=== PATIENT | female | born 1940 ===

== ENCOUNTER 2016-07-17 09:10 | Inpatient (IN) | payer MEDICARE, MEDICAID ==
[2016-07-17 09:15] VITALS: BMI 25.9
--- NOTE | 2016-07-17 09:48 | ED PDOC ---
HPI: General Adult Time Seen by Provider: 07/17/16 09:40 Chief Complaint (Nursing): Abdominal Pain Chief Complaint (Provider): abdominal pain History Per: Patient History/Exam Limitations: no limitations Additional Complaint(s): 76yo female complaining of abdominal pain, vomit, diarrhea since last night. No fever. She also has a cough with white sputum. PMD: Jang Past Medical History Reviewed: Historical Data, Nursing Documentation, Vital Signs Vital Signs: Last Vital Signs Temp 97.6 F 07/17/16 09:21 Pulse 78 07/17/16 09:21 Resp 20 07/17/16 09:21 BP 125/91 H 07/17/16 09:21 Pulse Ox 98 07/17/16 10:05 - Medical History PMH: Anemia, Anxiety, Arthritis, Asthma, Atrial Fibrillation, Back Problems ( had recent injury/fall and was hospitalized for back pain(no findings)), Bronchitis, CAD, Cardia Arrhythmia, CHF, COPD, Depression, Diabetes (type II), Gastritis, Gall Bladder Disease, Hepatitis (B), HTN, Hypercholesterolemia, Hyperlipidemia, Osteoporosis, Peripheral Edema, Pneumonia Denies: HIV, End Stage Renal Disease, Chronic Kidney Disease - Surgical History Surgical History: Cholecystectomy, Coronary Stent - Family History Family History: States: Hypertension - Social History Drugs: Denies - Immunization History Hx Tetanus Toxoid Vaccination: No Hx Influenza Vaccination: Yes Hx Pneumococcal Vaccination: Yes - Home Medications Home Medications: Ambulatory Orders Medication Instructions Recorded GlipiZIDE [Glucotrol] 10 mg PO BID 04/26/16 Isosorbide Mononitrate [Imdur] 30 mg PO DAILY 04/26/16 Lorazepam [Ativan] 0.5 mg PO HS 04/26/16 Metoprolol Tartrate [Lopressor] 100 mg PO Q12H 04/26/16 Pantoprazole Sodium [Protonix] 40 mg PO BID 04/26/16 Pravastatin Sodium [Pravachol] 40 mg PO HS 04/26/16 Sucralfate [Carafate Tab] 1 gm PO BID 04/26/16 Acetaminophen [Tylenol 325mg tab] 650 mg PO Q4 PRN #0 tab 05/01/16 Albuterol/Ipratropium [Duoneb 3 3 ml INH Q6 PRN #0 neb 05/01/16 mg/0.5 mg (3 ml) UD] Lactobacillus Acidophilus [Bacid 1 cap PO BID cap 05/01/16 Acidophilus] Promethazine [Phenergan Syrup] 6.25 mg PO Q6 PRN #0 cup 05/01/16 amLODIPine [Norvasc] 10 mg PO DAILY #30 tab 05/01/16 cloNIDine [Catapres] 0.1 mg PO Q8H tab 05/01/16 oxyCODONE/Acetaminophen [Percocet 1 ea PO Q6 #30 tab 05/01/16 5/325 mg Tab] Acetaminophen [Tylenol 325mg tab] 650 mg PO Q4 PRN #0 tab 05/31/16 Albuterol/Ipratropium [Duoneb 3 3 ml INH Q6 PRN #0 neb 05/31/16 mg/0.5 mg (3 ml) UD] Enoxaparin [Lovenox] 30 mg SC DAILY syr 05/31/16 Furosemide [Lasix] 40 mg PO DAILY tab 05/31/16 GlipiZIDE [Glucotrol] 10 mg PO BID tab 05/31/16 Insulin Human Regular [HumuLIN R] 0 units SC ACHS ml 05/31/16 Metoprolol Tartrate [Lopressor] 100 mg PO Q12 tab 05/31/16 - Allergies Allergies/Adverse Reactions: Allergies Allergy/AdvReac Type Severity Reaction Status Date / Time alprazolam [From Xanax] Allergy SWELLING Verified 07/17/16 09:43 hydromorphone HCl Allergy RASH Verified 07/17/16 09:43 [From Dilaudid] zolpidem tartrate Allergy RASH Verified 07/17/16 09:43 [From Ambien] Review of Systems ROS Statement: Except As Marked, All Systems Reviewed And Found Negative Constitutional: Negative for: Fever Respiratory: Positive for: Cough, Sputum Gastrointestinal: Positive for: Nausea, Vomiting, Abdominal Pain, Diarrhea Physical Exam - Reviewed Nursing Documentation Reviewed: Yes Vital Signs Reviewed: Yes - Physical Exam Appears: Positive for: Well, Non-toxic, No Acute Distress Head Exam: Positive for: ATRAUMATIC, NORMAL INSPECTION, NORMOCEPHALIC Skin: Positive for: Warm, Dry Eye Exam: Positive for: EOMI, PERRL Cardiovascular/Chest: Positive for: Regular Rate, Rhythm Respiratory: Positive for: Decreased Breath Sounds, Rhonchi. Negative for: Respiratory Distress Gastrointestinal/Abdominal: Positive for: Soft. Negative for: Tenderness Extremity: Positive for: Normal ROM Neurologic/Psych: Positive for: Alert, Oriented - Laboratory Results Result Diagrams: 07/17/16 10:37 07/17/16 10:37 - ECG O2 Sat by Pulse Oximetry: 98 (RA) Pulse Ox Interpretation: Normal Medical Decision Making Medical Decision Makin: EKG, CXR, blood culture, VBG shock panel, labs, duoneb, solumedrol ordered. Disposition - Clinical Impression Clinical Impression: Pneumonia, COPD exacerbation - Patient ED Disposition Is Patient to be Admitted: Yes - Disposition Disposition Time: 14:41 Condition: FAIR - Pt Status Changed To: Hospital Disposition Of: Observation - POA Present On Arrival: None Additional Comments - Additional Comments Additional Comments: Scribe Attestation: Documented by Shiv Vilchis acting as a scribe for Felipe Clemons MD. Provider Scribe Attestation: All medical record entries made by the Scribe were at my direction and personally dictated by me. I have reviewed the chart and agree that the record accurately reflects my personal performance of the history, physical exam, medical decision making, and the department course for this patient. I have also personally directed, reviewed, and agree with the discharge instructions and disposition.
[2016-07-17] MEDS ORDERED: Albuterol-Ipratrop 3 mg / 0.5 (3 ml) UD IH STA (09:51)
[2016-07-17] MEDS ORDERED: Albuterol-Ipratrop 3 mg / 0.5 (3 ml) UD ONE (09:54)
[2016-07-17 10:55] LABS: ALB/GLOB RATIO 1.1 (1.0-2.1); BILIRUBIN,TOTAL 0.7 mg/dl (0.2-1.3); CALCIUM 8.9 mg/dL (8.4-10.2); POTASSIUM 4.6 MMOL/L (3.6-5.0); TOTAL PROTEIN 7.5 G/DL (6.3-8.2)
[2016-07-17 11:06] LABS: BASO # 0.1 K/uL (0.0-0.2); BASO % 1.2 % (0.0-2.0); EOS # 0.1 K/uL (0.0-0.7); EOS % 1.6 % (0.0-4.0); LYMPH % 12.8 % (20.0-40.0); MONO # 0.6 K/uL (0.0-0.8); MONO % 8.5 % (0.0-10.0); NEUT # 5.7 K/uL (1.8-7.0); NEUT % 75.9 % (50.0-75.0); RED CELL DISTRIBUTION WIDTH 16.6 % (11.5-14.5); WHITE BLOOD COUNT 7.5 K/uL (4.8-10.8)
[2016-07-17 11:07] LABS: MEAN CELL VOLUME 90.3 fl (81.0-99.0)
--- NOTE | 2016-07-17 14:12 | RAD ---
HISTORY: Cough. COMPARISON: 05/29/2016 TECHNIQUE: Chest PA and lateral FINDINGS: LUNGS: Perihilar, right lower lobe infiltrate a new to prior studies. PLEURA: No significant pleural effusion identified. No pneumothorax apparent. CARDIOVASCULAR: Cardiomegaly. No evidence of acute, significant cardiovascular disease. OSSEOUS STRUCTURES: No significant abnormalities. VISUALIZED UPPER ABDOMEN: Normal. OTHER FINDINGS: None. IMPRESSION: New right lower lobe infiltrate likely pneumonia. PLEASE NOTE, technical factors related to PACS- networking resulted in an unavoidable delay in the interpretation and generation of a final report of this study.
--- NOTE | 2016-07-17 16:09 | CARD ---
APPROVED REPORT EKG Measurement Heart [id number] <Conclusion> Sinus rhythm with occasional premature ventricular complexes Otherwise normal ECG
[2016-07-17] MEDS: Insulin Regular 100 units/ml SC SCH (23:23)
[2016-07-18] MEDS: Insulin Regular 100 units/ml SC SCH ×4 (06:18→23:00)
[2016-07-18] MEDS: Enoxaparin 40 mg Syringe SC SCH (09:00)
[2016-07-18] MEDS: Pantoprazole 40 mg EC Tab PO SCH ×2 (09:01→16:59)
[2016-07-18] MEDS: Pravastatin Sodium 40 MG TAB PO SCH (09:01)
--- NOTE | 2016-07-18 09:27 | CP.PCM.HP ---
<Yashira Hunter - Last Filed: 07/18/16 22:38> History of Present Illness - History of Present Illness History of Present Illness: 76F admitted last night and seen this morning at bedside with attending. This morning patient reports nausea/vomiting/diarrhea has resolved but continues with productive cough. Present on Admission - Present on Admission Any Indicators Present on Admission: Yes History of Uncontrolled Diabetes: Yes Review of Systems - Review of Systems Review of Systems: As per HPI Past Patient History - Past Medical History & Family History Past Medical History?: Yes - Past Social History Smoking Status: Never Smoked - CARDIAC Hx Cardiac Disorders: Yes - PULMONARY Hx Respiratory Disorders: Yes - NEUROLOGICAL Hx Neurological Disorder: No - HEENT Hx HEENT Problems: No - RENAL Hx Chronic Kidney Disease: No - ENDOCRINE/METABOLIC Hx Endocrine Disorders: Yes - HEMATOLOGICAL/ONCOLOGICAL Hx Anemia: Yes Hx Human Immunodeficiency Virus (HIV): No - INTEGUMENTARY Hx Dermatological Problems: No - MUSCULOSKELETAL/RHEUMATOLOGICAL Hx Musculoskeletal Disorders: Yes Hx Falls: Yes - GASTROINTESTINAL Hx Gall Bladder Disease: Yes Hx Gastritis: Yes - GENITOURINARY/GYNECOLOGICAL Hx Genitourinary Disorders: No - PSYCHIATRIC Hx Anxiety: Yes Hx Depression: Yes Hx Substance Use: No - SURGICAL HISTORY Hx Cholecystectomy: Yes Hx Coronary Stent: Yes - ANESTHESIA Hx Anesthesia: Yes Hx Anesthesia Reactions: No Hx Malignant Hyperthermia: No Meds Allergies/Adverse Reactions: Allergies Allergy/AdvReac Type Severity Reaction Status Date / Time alprazolam [From Xanax] Allergy SWELLING Verified 07/17/16 09:43 hydromorphone HCl Allergy RASH Verified 07/17/16 09:43 [From Dilaudid] zolpidem tartrate Allergy RASH Verified 07/17/16 09:43 [From Ambien] Physical Exam - Constitutional Appears: Well, Non-toxic - Head Exam Head Exam: ATRAUMATIC, NORMAL INSPECTION - Eye Exam Eye Exam: EOMI, Normal appearance - ENT Exam ENT Exam: Mucous Membranes Moist, Normal Exam - Respiratory Exam Respiratory Exam: Decreased Breath Sounds (R>L), Rhonchi, NORMAL BREATHING PATTERN. absent: Wheezes - Cardiovascular Exam Cardiovascular Exam: REGULAR RHYTHM. absent: JVD - GI/Abdominal Exam GI & Abdominal Exam: Normal Bowel Sounds, Soft. absent: Tenderness - Extremities Exam Extremities exam: Positive for: normal capillary refill, pedal pulses present - Neurological Exam Neurological exam: Alert - Skin Skin Exam: Normal Color, Warm Results - Vital Signs Recent Vital Signs: Last Vital Signs Temp 36.8 C 07/18/16 08:00 Pulse 78 07/18/16 09:00 Resp 20 07/18/16 08:00 BP 161/81 H 07/18/16 09:00 Pulse Ox 99 07/18/16 08:00 - Labs Result Diagrams: 07/17/16 10:37 07/17/16 10:37 Labs: Laboratory Results - last 24 hr 07/17/16 07/18/16 21:29 05:54 POC Glucose (mg/dL) 439 H* 186 H Assessment & Plan (1) Pneumonia Assessment and Plan: CXR showing RLL infiltrate, N/V/diarrhea likely associated with uncontrolled diabetes. However, patient with some clinical improvement. - Levofloxacin 500mg, IV, daily - Incentive Spirometry Status: Acute Priority: High (4) DVT prophylaxis Assessment and Plan: Lovenox 40mg, SC, Daily Status: Acute <Manpreet Austin - Last Filed: 07/21/16 15:55> Results - Vital Signs Recent Vital Signs: Last Vital Signs Temp 97.9 F 07/21/16 08:00 Pulse 71 07/21/16 09:00 Resp 18 07/21/16 08:00 BP 120/67 07/21/16 08:59 Pulse Ox 100 07/21/16 08:00 - Labs Result Diagrams: 07/19/16 06:00 07/19/16 06:00 Labs: Laboratory Results - last 24 hr 07/20/16 07/20/16 07/21/16 15:48 21:31 05:56 POC Glucose (mg/dL) 159 H 85 132 H 07/21/16 07/21/16 11:40 13:27 POC Glucose (mg/dL) 323 H 365 H Assessment & Plan - Assessment and Plan (Free Text) Assessment: Patient was personally seen and examined by me in rounds with residents. Available labs and diagnostic data reviewed. Case, Patient's condition and management plan discussed with residents in rounds. Agree with resident's documentation. Plan: As ordered. Manpreet Austin MD
[2016-07-18] MEDS ORDERED: Dextrose 50% SYRINGE Inj (50 ml) IV PRN (14:34)
[2016-07-18] MEDS ORDERED: Glucagon Recombinant 1 mg Inj IM PRN (14:34)
[2016-07-19] MEDS: Insulin Regular 100 units/ml SC SCH ×4 (06:50→23:10)
[2016-07-19 06:51] LABS: BASO # 0.1 K/uL (0.0-0.2); BASO % 1.3 % (0.0-2.0); EOS # 0.1 K/uL (0.0-0.7); EOS % 0.9 % (0.0-4.0); HEMATOCRIT 30.7 % (34.0-47.0); LYMPH # 1.2 K/uL (1.0-4.3); LYMPH % 16.7 % (20.0-40.0); MEAN CELL VOLUME 88.6 fl (81.0-99.0); MEAN CORPUSCULAR HEMOGLOBIN 28.3 pg (27.0-31.0); MEAN PLATELET VOLUME 7.9 fl (7.2-11.7); MONO # 0.7 K/uL (0.0-0.8); MONO % 10.1 % (0.0-10.0); NEUT # 5.2 K/uL (1.8-7.0); RED CELL DISTRIBUTION WIDTH 16.5 % (11.5-14.5); WHITE BLOOD COUNT 7.3 K/uL (4.8-10.8)
[2016-07-19 07:13] LABS: CALCIUM 8.6 mg/dL (8.4-10.2); POTASSIUM 4.2 MMOL/L (3.6-5.0)
--- NOTE | 2016-07-19 07:18 | PQF GENQUE ---
This form is a permanent part of the medical record 07/19/16 Dr. Austin, ER MD documented the following information with no mention of this diagnosis in your documentation. Please indicate in your next progress note and/or discharge summary your agreement with ER MD or provide clarification that this diagnosis is not a current condition. Diagnosis: COPD exacerbation Documented by: Dr. Clemons Location: ER Admitted with abdominal pain, vomiting, diarrhea and productive cough. CXR RLL infiltrate likely pneumonia. Treated with Levaquin, Solumedrol and Nebulizers. ER MD with diagnoses of pneumonia and COPD exacerbation. Clarification of your documentation is requested to better reflect the severity of illness and intensity of treatment of your patient. PHYSICIAN'S RESPONSE [ ] COPD history [ ] COPD with Acute Exacerbation [ ] Other explanation ( please specify) [ ] Unable to determine Based on your medical judgment of the clinical indicators outlined above please clarify the following: [] Practitioner response [] If unable to determine, please check the box, sign and date. Present On Admission (POA) Indicator: [] Present at the time of admission [] Not present at the time of admission [] Clinically Undetermined In responding to this query, please exercise your independent professional judgment. The fact that a question is asked does not imply that any particular answer is desired or expected. Thank you for your clarification on this documentation. If you have any questions please call:[phone] * Thank you, Zora Handy RN CD[facility]
--- NOTE | 2016-07-19 07:27 | PQF CHF ---
This form is a permanent part of the medical record 07/19/16 Dr. Austin, Please speicify the type and acuity of the history of CHF. Documentation by the ER MD of a history of CHF. Treated with Lasix. Clarification of your documentation is requested to better reflect the severity of illness and intensity of treatment of your patient. Indicators present [x] Diagnosis of a history of CHF written in by ER MD [] BNP > 200 [] Imaging Finding of Pulmonary Edema /Pleural Effusions [] Fluid/Volume Overload [] Pitting edema [] Ejection Fraction < 40% (Indicative of Systolic Heart Failure) [x] Ejection Fraction > 40% (Indicative of Diastolic Heart Failure) ECHO report 02/14/16 EF 60% [x] Dyspnea / Orthopenea / Paroxysmal Nocturnal Dyspnea [] Other: Location in the medical record that reflects the above clinical findings: [x] ER Treatment Provided: [x] Lasix Po PHYSICIAN'S RESPONSE Based on your medical judgment of the clinical indicators outlined above, are you treating this patient for a known or suspected: [] Acute CHF [] Systolic [] Diastolic [] Combined [] Chronic CHF [] Systolic [] Diastolic [] Combined [] Acute on Chronic CHF []Systolic [] Diastolic [] Combined [] CHF due hypertension [] Acute systolic []Chronic systolic [] Acute /chronic systolic [] Other, please indicate: [] [] If Unable to Determine, please check the box, sign and date. Present On Admission (POA) Indicator: [] Present at the time of admission [] Not present at the time of admission [] Clinically Undetermined In responding to this query, please exercise your independent professional judgment. The fact that a question is asked does not imply that any particular answer is desired or expected. Thank you for your clarification on this documentation. If you have any questions please call:[phone] * Thank you, Zora Handy RN CDMP [facility]
--- NOTE | 2016-07-19 07:34 | PQF PNEUMO ---
This form is a permanent part of the medical record 07/19/16 Dr. Austin Please specify type of pneumonia if known. Admitted with abdominal pain, vomiting, diarrhea and productive cough. CXR RLL infiltrate likely pneumonia. Treated with Levaquin, Solumedrol and Nebulizers. ER MD with diagnoses of pneumonia and COPD exacerbation. Clarification of your documentation is requested to better reflect the severity of illness and intensity of treatment of your patient. Indicators present [x] Documented diagnosis of pneumonia [x] X-ray findings: RLL pneumonia [] Positive Sputum cultures [x] Cough [x] Abnormal lungs sounds: Decreased [] Poor gag reflex [] Speech consults/swallow evaluation [] Vent dependence [] Other: [] Location in the medical record that reflects the above clinical findings: [] Treatment Provided: [x]Levaquin PHYSICIAN'S RESPONSE Based on your medical judgment of the clinical indicators outlined above, are you treating this patient for a known or suspected: [] Aspiration pneumonia [] Community acquired pneumonia [] Ventilator associated pneumonia [] Viral pneumonia [] Bacterial pneumonia Please specify organism: [] [] Other, please indicate [] If Unable to Determine, please check the box, sign and date. Present On Admission (POA) Indicator: [] Present at the time of admission [] Not present at the time of admission [] Clinically Undetermined In responding to this query, please exercise your independent professional judgment. The fact that a question is asked does not imply that any particular answer is desired or expected. Thank you for your clarification on this documentation. If you have any questions please call:[phone] * Thank you, Zora Handy RN CD[facility]
[2016-07-19] MEDS: Pravastatin Sodium 40 MG TAB PO SCH (09:00)
[2016-07-19] MEDS: Pantoprazole 40 mg EC Tab PO SCH ×2 (09:00→17:06)
[2016-07-19] MEDS: Enoxaparin 40 mg Syringe SC SCH (10:00)
--- NOTE | 2016-07-19 10:23 | CP.PCM.PN ---
Addendum entered and electronically signed by Yashira Hunter 07/19/16 15:06: Dispo: Possibly home with home PT (after evaluation) if medically stable 2016 Original Note: <Yashira Hunter - Last Filed: 07/19/16 14:43> Subjective - Date & Time of Evaluation Date of Evaluation: 07/19/16 Time of Evaluation: 06:55 - Subjective Subjective: 76F seen and examined at bedside with attending. Patient reports feeling better, denies SOB, chest pain, palpitations and states she has a good appetite and is having BMs. Objective - Vital Signs/Intake and Output Vital Signs (last 24 hours): Temp Pulse Resp BP Pulse Ox 36.9 C 69 20 158/73 H 96 07/19/16 08:00 07/19/16 08:00 07/19/16 08:00 07/19/16 08:00 07/19/16 08:00 - Medications Medications: Current Medications Acetaminophen (Tylenol 325mg Tab) 650 mg PO Q6 PRN PRN Reason: Pain, moderate (4-7) Amlodipine Besylate (Norvasc) 10 mg PO DAILY [facility] Last Admin: 07/18/16 09:00 Dose: 10 mg Clonidine HCl (Catapres) 0.1 mg PO Q8H [facility] Last Admin: 07/19/16 06:33 Dose: 0.1 mg Dextrose (Glutose 15) 0 gm PO ONCE PRN; Protocol PRN Reason: Hypoglycemia Protocol Dextrose (Dextrose 50% Inj) 0 ml IV STAT PRN; Protocol PRN Reason: Hyglycemia Protocol Enoxaparin Sodium (Lovenox) 40 mg SC DAILY [facility] PRN Reason: Protocol Last Admin: 07/18/16 09:00 Dose: 40 mg Furosemide (Lasix) 40 mg PO DAILY [facility] Last Admin: 07/18/16 08:59 Dose: 40 mg Glipizide (Glucotrol) 10 mg PO BID [facility] Last Admin: 07/18/16 16:59 Dose: 10 mg Glucagon (Glucagen Diagnostic Kit) 0 mg IM STAT PRN; Protocol PRN Reason: Hypoglycemia Protocol Levofloxacin/Dextrose (Levaquin 500mg) 100 mls @ 100 mls/hr IVPB DAILY [facility] Last Admin: 07/18/16 13:04 Dose: 100 mls/hr Insulin Human Regular (Humulin R) 0 units SC ACCU-CHECK [facility] PRN Reason: Protocol Last Admin: 07/19/16 06:50 Dose: Not Given Lorazepam (Ativan) 0.5 mg PO HS [facility] Last Admin: 07/18/16 22:21 Dose: 0.5 mg Metoprolol Tartrate (Lopressor) 100 mg PO Q12H [facility] Last Admin: 07/18/16 22:18 Dose: 100 mg Pantoprazole Sodium (Protonix Ec Tab) 40 mg PO BID [facility] Last Admin: 07/18/16 16:59 Dose: 40 mg Pravastatin Sodium (Pravachol) 40 mg PO DAILY [facility] Last Admin: 07/18/16 09:01 Dose: 40 mg Sucralfate (Carafate Tab) 1 gm PO BID [facility] Last Admin: 07/18/16 16:57 Dose: 1 gm - Labs Labs: 07/19/16 06:00 07/19/16 06:00 - Constitutional Appears: Well, No Acute Distress - Head Exam Head Exam: ATRAUMATIC, NORMAL INSPECTION - Eye Exam Eye Exam: EOMI, Normal appearance - ENT Exam ENT Exam: Mucous Membranes Moist, Normal Exam - Neck Exam Neck Exam: Full ROM, Normal Inspection - Respiratory Exam Respiratory Exam: Rhonchi (R>L, but much improved), NORMAL BREATHING PATTERN. absent: Rales, Wheezes - Cardiovascular Exam Cardiovascular Exam: Diastolic murmur, REGULAR RHYTHM. absent: JVD - GI/Abdominal Exam GI & Abdominal Exam: Soft, Normal Bowel Sounds. absent: Tenderness - Extremities Exam Extremities Exam: Full ROM, Normal Capillary Refill, Normal Inspection. absent : Pedal Edema - Neurological Exam Neurological Exam: Alert, Awake, Oriented x3 - Psychiatric Exam Psychiatric exam: Normal Affect, Normal Mood - Skin Skin Exam: Normal Color, Warm Assessment and Plan (1) Pneumonia Assessment & Plan: Clinically improving, although type of pneumonia unclear at this time. Repeat CXR in the morning. - Levofloxacin 500mg, IV, daily - Incentive Spirometry Status: Acute (2) COPD (chronic obstructive pulmonary disease) Assessment & Plan: Exacerbation unlikely given CXR showing infiltrate. Will continue to manage with patient's home medications at this time. Status: Chronic (3) Chronic diastolic (congestive) heart failure Assessment & Plan: Chronic, controlled, Clinically no signs of acute decompensation. - c/w home medications Status: Chronic (4) DVT prophylaxis Assessment & Plan: Lovenox 40mg, SC, Daily Status: Acute <Manpreet Austin K - Last Filed: 07/21/16 15:58> Objective - Vital Signs/Intake and Output Vital Signs (last 24 hours): Temp Pulse Resp BP Pulse Ox 97.9 F 71 18 120/67 100 07/21/16 08:00 07/21/16 09:00 07/21/16 08:00 07/21/16 08:59 07/21/16 08:00 - Medications Medications: Current Medications Acetaminophen (Tylenol 325mg Tab) 650 mg PO Q6 PRN PRN Reason: Pain, moderate (4-7) Last Admin: 07/20/16 14:11 Dose: 650 mg Amlodipine Besylate (Norvasc) 10 mg PO DAILY [facility] Last Admin: 07/21/16 08:58 Dose: 10 mg Bisoprolol Fumarate (Zebeta) 10 mg PO DAILY [facility] Last Admin: 07/21/16 08:59 Dose: 10 mg Clonidine HCl (Catapres) 0.1 mg PO Q8H [facility] Last Admin: 07/21/16 06:21 Dose: 0.1 mg Dextrose (Glutose 15) 0 gm PO ONCE PRN; Protocol PRN Reason: Hypoglycemia Protocol Dextrose (Dextrose 50% Inj) 0 ml IV STAT PRN; Protocol PRN Reason: Hyglycemia Protocol Furosemide (Lasix) 40 mg PO DAILY [facility] Last Admin: 07/21/16 08:59 Dose: 40 mg Glipizide (Glucotrol) 10 mg PO BID [facility] Last Admin: 07/21/16 08:58 Dose: 10 mg Glucagon (Glucagen Diagnostic Kit) 0 mg IM STAT PRN; Protocol PRN Reason: Hypoglycemia Protocol Levofloxacin/Dextrose (Levaquin 500mg) 100 mls @ 100 mls/hr IVPB DAILY [facility] Last Admin: 07/21/16 09:00 Dose: 100 mls/hr Insulin Human Regular (Humulin R) 0 units SC ACCU-CHECK [facility] PRN Reason: Protocol Last Admin: 07/21/16 13:29 Dose: 6 u Pantoprazole Sodium (Protonix Ec Tab) 40 mg PO BID [facility] Last Admin: 07/21/16 08:58 Dose: 40 mg Pravastatin Sodium (Pravachol) 40 mg PO DAILY [facility] Last Admin: 07/21/16 08:58 Dose: 40 mg Sucralfate (Carafate Tab) 1 gm PO BID [facility] Last Admin: 07/21/16 08:58 Dose: 1 gm - Labs Labs: 07/19/16 06:00 07/19/16 06:00 Assessment and Plan - Assessment and Plan (Free Text) Assessment: Patient was personally seen and examined by me in rounds with residents. Available labs and diagnostic data reviewed. Case, Patient's condition and management plan discussed with residents in rounds. Agree with resident's documentation. Plan: As ordered. Manpreet Austin MD
[2016-07-20] MEDS: Insulin Regular 100 units/ml SC SCH ×4 (06:02→23:00)
--- NOTE | 2016-07-20 08:10 | PN ---
DATE: 07/20/2016 The patient seen and examined. Interim events noted. The patient feels a little better. Cough is i mproved. Able to ambulate a little more. No chest pain. No shortness of breath at rest. PHYSICAL EXAMINATION: GENERAL: The patient is in no acute distress. VITAL SIGNS: Stable. HEART: S1, S2 normal, regular. LUNGS: The patient has good bilateral air exchange. Occasional crepitation, partially cleared with coughing. ABDOMEN: Soft, nontender. EXTREMITIES: No edema, no calf swelling, no tenderness. No acute ischemia. CENTRAL NERVOUS SYSTEM: Essentially unchanged. DIAGNOSTIC DATA: Available diagnostic data reviewed. Telemetry monitoring does not reveal significa nt arrhythmias. Overall, patient's general medical condition is stable, is slowly improving. PLAN: As ordered. Manpreet Austin MD cc: [id number] TT: 07/20/2016 08:09:18 Confirmation # [id number] Dictation # [id number] chavez
[2016-07-20] MEDS: Enoxaparin 40 mg Syringe SC SCH (08:24)
[2016-07-20] MEDS: Pravastatin Sodium 40 MG TAB PO SCH (08:25)
[2016-07-20] MEDS: Pantoprazole 40 mg EC Tab PO SCH ×2 (08:26→16:19)
--- NOTE | 2016-07-20 13:47 | RAD ---
HISTORY: pneumonia COMPARISON: 07/17/2016. TECHNIQUE: Chest PA and lateral FINDINGS: LUNGS: Resolution right lower lobe infiltrate. PLEURA: No pleural effusion identified. CARDIOVASCULAR: Cardiomegaly. No evidence of acute, significant cardiovascular disease. OSSEOUS STRUCTURES: No significant abnormalities. VISUALIZED UPPER ABDOMEN: Normal. OTHER FINDINGS: None. IMPRESSION: No active pulmonary disease/ resolved right lower lobe infiltrate.
[2016-07-20 23:54] VITALS: RESP 18
[2016-07-21 05:04] VITALS: O2SAT 100
[2016-07-21] MEDS: Insulin Regular 100 units/ml SC SCH ×2 (06:21→13:29)
[2016-07-21 08:12] VITALS: BP 120/67; PULSE 71; TEMP 97.9
--- NOTE | 2016-07-21 08:37 | CP.PCM.DIS ---
Provider - Provider Date of Admission: 07/18/16 19:13 Attending physician: Manpreet Austin MD Time Spent in preparation of Discharge (in minutes): 45 Diagnosis - Discharge Diagnosis (1) Pneumonia Status: Acute Priority: High Comment: Etiology unclear. CXR shows improvement, clinically improved, needs to continue with PO antibiotics as outpatient. (2) COPD (chronic obstructive pulmonary disease) Status: Chronic Comment: Chronically stable, c/w current medications (3) Chronic diastolic (congestive) heart failure Status: Chronic Comment: chronic, stable, c/w medications. Started on Bisoprolol which should be continued. Hospital Course - Lab Results Lab Results: Most Recent Lab Values WBC 7.3 K/uL (4.8-10.8) 07/19/16 06:00 RBC 3.47 Mil/uL (3.80-5.20) L 07/19/16 06:00 Hgb 9.8 g/dL (12.0-16.0) L 07/19/16 06:00 Hct 30.7 % (34.0-47.0) L 07/19/16 06:00 MCV 88.6 fl (81.0-99.0) 07/19/16 06:00 MCH 28.3 pg (27.0-31.0) 07/19/16 06:00 MCHC 32.0 g/dL (33.0-37.0) L 07/19/16 06:00 RDW 16.5 % (11.5-14.5) H 07/19/16 06:00 Plt Count 218 K/uL (130-400) 07/19/16 06:00 MPV 7.9 fl (7.2-11.7) 07/19/16 06:00 Neut % (Auto) 71.0 % (50.0-75.0) 07/19/16 06:00 Lymph % (Auto) 16.7 % (20.0-40.0) L 07/19/16 06:00 [place] % (Auto) 10.1 % (0.0-10.0) H 07/19/16 06:00 Eos % (Auto) 0.9 % (0.0-4.0) 07/19/16 06:00 Baso % (Auto) 1.3 % (0.0-2.0) 07/19/16 06:00 Neut # 5.2 K/uL (1.8-7.0) 07/19/16 06:00 Lymph # 1.2 K/uL (1.0-4.3) 07/19/16 06:00 [place] # 0.7 K/uL (0.0-0.8) 07/19/16 06:00 Eos # 0.1 K/uL (0.0-0.7) 07/19/16 06:00 Baso # 0.1 K/uL (0.0-0.2) 07/19/16 06:00 Sodium 145 mmol/l (132-148) 07/19/16 06:00 Potassium 4.2 MMOL/L (3.6-5.0) 07/19/16 06:00 Chloride 109 mmol/L (98-107) H 07/19/16 06:00 Carbon Dioxide 22 mmol/L (22-30) 07/19/16 06:00 Anion Gap 18 (10-20) 07/19/16 06:00 BUN 41 mg/dl (7-17) H 07/19/16 06:00 Creatinine 1.6 mg/dL (0.7-1.2) H 07/19/16 06:00 Est GFR ( Amer) 38 07/19/16 06:00 Est GFR (Non-Af Amer) 31 07/19/16 06:00 POC Glucose (mg/dL) 132 mg/dL (65-110) H 07/21/16 05:56 Random Glucose 101 mg/dL (65-105) 07/19/16 06:00 Calcium 8.6 mg/dL (8.4-10.2) 07/19/16 06:00 Total Bilirubin 0.7 mg/dl (0.2-1.3) 07/17/16 10:37 AST 25 U/L (14-36) 07/17/16 10:37 ALT 23 U/L (9-52) 07/17/16 10:37 Alkaline Phosphatase 80 U/L (38-126) 07/17/16 10:37 Total Protein 7.5 G/DL (6.3-8.2) 07/17/16 10:37 Albumin 3.9 g/dL (3.5-5.0) 07/17/16 10:37 Globulin 3.7 gm/dL (2.2-3.9) 07/17/16 10:37 Albumin/Globulin Ratio 1.1 (1.0-2.1) 07/17/16 10:37 Influenza Typ A,B (EIA) Negative for flu a/b (NEGATIVE) 07/17/16 11:15 - Hospital Course Hospital Course: Patient seen and examined at bedside this morning with attending. 76F admitted for a PO intolerance, hyperglycemia and found to have a RLL pneumonia. She has successfully been treated for pneumonia as determined both clinically as well as on repeat CXR. Her chronic medical problems have been stable throughout this admission. Patient is stable for discharge to home and PT recommending Home w/ services. She has close follow up Sunday07/24/2016 and has been informed. BCx- NGTD CXR- RLL infiltrate resolved Discharge Exam - Head Exam Head Exam: ATRAUMATIC, NORMAL INSPECTION - Eye Exam Eye Exam: EOMI, Normal appearance - ENT Exam ENT Exam: Mucous Membranes Moist, Normal Exam - Neck Exam Neck exam: Full Rom, Normal Inspection - Respiratory Exam Respiratory Exam: Clear to PA & Lateral, NORMAL BREATHING PATTERN. absent: Rales, Wheezes - Cardiovascular Exam Cardiovascular Exam: Diastolic murmur, REGULAR RHYTHM. absent: JVD - GI/Abdominal Exam GI & Abdominal Exam: Normal Bowel Sounds, Soft. absent: Tenderness - Neurological Exam Neurological exam: Alert, Oriented x3 - Psychiatric Exam Psychiatric exam: Normal Affect, Normal Mood - Skin Skin Exam: Normal Color, Warm Discharge Plan - Discharge Medications Prescriptions: Levofloxacin [Levaquin] 500 mg PO DAILY #7 tablet - Follow Up Plan Condition: FAIR Disposition: HOME/ ROUTINE Patient education suggested?: Yes Instructions: Community Acquired Pneumonia (DC) Additional Instructions: For your appointment on Sunday with Dr Austin you need to be fasting, water is okay. Referrals: Manpreet Austin MD [Staff Provider] - 07/24/16 (PLEASE BE FASTING FOR BLOOD WORK. )
[2016-07-21] MEDS: Pravastatin Sodium 40 MG TAB PO SCH (08:58)
[2016-07-21] MEDS: Pantoprazole 40 mg EC Tab PO SCH (08:58)
[2016-07-21] MEDS: Enoxaparin 40 mg Syringe SC SCH (08:59)
== END 2016-07-21 15:10 | disposition home or self-care (01) | DRG 190 ==
LOC: H.ER 09:10 → H.ERHOLD 14:40 → H.TEL 21:33 → OBSVTOIN 07-18 19:13
PROVIDERS: ADMIT Internal Medicine; ATTEND Internal Medicine
DX: J44.0 Chronic obstructive pulmonary disease with (acute) lower respiratory infection (principal); J18.9 Pneumonia, unspecified organism; E11.65 Type 2 diabetes mellitus with hyperglycemia; I11.0 Hypertensive heart disease with heart failure; I50.32 Chronic diastolic (congestive) heart failure; I48.91 Unspecified atrial fibrillation; J45.909 Unspecified asthma, uncomplicated; I25.10 Atherosclerotic heart disease of native coronary artery without angina pectoris; Z95.5 Presence of coronary angioplasty implant and graft; E78.00 Pure hypercholesterolemia, unspecified; E78.5 Hyperlipidemia, unspecified; F32.9 Major depressive disorder, single episode, unspecified; K29.70 Gastritis, unspecified, without bleeding; M81.0 Age-related osteoporosis without current pathological fracture

== ENCOUNTER 2016-09-11 14:56 | Observation (INO) | payer MEDICARE, MEDICAID ==
[2016-09-11 14:56] VITALS: BMI 25.9
[2016-09-11] MEDS ORDERED: Sodium Chloride 0.9% 1,000 ML IV STA (15:17)
--- NOTE | 2016-09-11 15:24 | ED PDOC ---
HPI: Abdomen Time Seen by Provider: 09/11/16 15:10 Chief Complaint (Nursing): Abdominal Pain Chief Complaint (Provider): Abdominal pain History Per: Patient History/Exam Limitations: no limitations Onset/Duration Of Symptoms: Hrs Outside of [place] travel?: No Current Symptoms Are (Timing): Still Present Location Of Pain/Discomfort: RUQ Quality Of Discomfort: "Pain" Associated Symptoms: denies: Fever, Chest Pain Additional Complaint(s): The pt is a 76yo female, PMHx of cholelithaisis, presents to the ED for evaluation of abdominal pain and vomiting since 2AM today. Pt denies any fever, chest pain or shortness of breath. Reports last bowel movement was yesterday morning. Pt offers no additional medical complaints. Past Medical History Reviewed: Historical Data, Nursing Documentation, Vital Signs Vital Signs: Last Vital Signs Temp 98.8 F 09/11/16 15:00 Pulse 96 H 09/11/16 15:00 Resp 18 09/11/16 15:00 BP 154/95 H 09/11/16 15:00 Pulse Ox 99 09/11/16 15:00 - Medical History PMH: Anemia, Anxiety, Arthritis, Asthma, Atrial Fibrillation, Back Problems ( had recent injury/fall and was hospitalized for back pain(no findings)), Bronchitis, CAD, Cardia Arrhythmia, CHF, COPD, Depression, Diabetes (type II), Gastritis, Gall Bladder Disease, Hepatitis (B), HTN, Hypercholesterolemia, Hyperlipidemia, Osteoporosis, Peripheral Edema, Pneumonia Denies: HIV, End Stage Renal Disease, Chronic Kidney Disease - Surgical History Surgical History: Cholecystectomy (pt reports she just had gallstones removed), Coronary Stent - Family History Family History: States: Hypertension - Immunization History Hx Tetanus Toxoid Vaccination: No Hx Influenza Vaccination: Yes Hx Pneumococcal Vaccination: Yes - Home Medications Home Medications: Ambulatory Orders Medication Instructions Recorded Furosemide [Lasix] 40 mg PO DAILY 07/17/16 GlipiZIDE [Glucotrol] 10 mg PO BID 07/17/16 Lorazepam [Ativan] 0.5 mg PO HS 07/17/16 Metoprolol Tartrate [Lopressor] 100 mg PO Q12H 07/17/16 Pantoprazole Sodium [Protonix] 40 mg PO BID 07/17/16 Pravastatin Sodium [Pravachol] 40 mg PO DAILY 07/17/16 Sucralfate [Carafate Tab] 1 gm PO BID 07/17/16 amLODIPine [Norvasc] 10 mg PO DAILY 07/17/16 cloNIDine [Catapres] 0.1 mg PO Q8H 07/17/16 Bisoprolol [Zebeta] 10 mg PO DAILY #30 tab 07/21/16 Levofloxacin [Levaquin] 500 mg PO DAILY #7 tablet 07/21/16 - Allergies Allergies/Adverse Reactions: Allergies Allergy/AdvReac Type Severity Reaction Status Date / Time alprazolam [From Xanax] Allergy SWELLING Verified 07/17/16 09:43 hydromorphone HCl Allergy RASH Verified 07/17/16 09:43 [From Dilaudid] zolpidem tartrate Allergy RASH Verified 07/17/16 09:43 [From Ambien] Review of Systems ROS Statement: Except As Marked, All Systems Reviewed And Found Negative Constitutional: Negative for: Fever, Chills Cardiovascular: Negative for: Chest Pain Respiratory: Negative for: Shortness of Breath Gastrointestinal: Positive for: Nausea, Vomiting, Abdominal Pain Physical Exam - Reviewed Nursing Documentation Reviewed: Yes Vital Signs Reviewed: Yes - Physical Exam Appears: Positive for: Well, Non-toxic, No Acute Distress Head Exam: Positive for: ATRAUMATIC, NORMAL INSPECTION, NORMOCEPHALIC Skin: Positive for: Normal Color, Warm Eye Exam: Positive for: Normal appearance Neck: Positive for: Normal, Supple Cardiovascular/Chest: Positive for: Regular Rate, Rhythm Respiratory: Negative for: Respiratory Distress Gastrointestinal/Abdominal: Positive for: Soft, Tenderness (RUQ). Negative for : Guarding, Rebound Neurologic/Psych: Positive for: Alert, Oriented - ECG O2 Sat by Pulse Oximetry: 99 Medical Decision Making Medical Decision Making: Time: 1824 Impression: Cholecystitis, cholelithiasis Plan: * Bloodwork * IV Fluids * Zofran * US Abdomen * reassess Scribe Attestation: Documented by Yumiko Weaver acting as a scribe for Asia Smalls MD. Provider Attestation: All medical record entries made by the Scribe were at my direction and personally dictated by me. I have reviewed the chart and agree that the record accurately reflects my personal performance of the history, physical exam, medical decision making, and the department course for this patient. I have also personally directed, reviewed, and agree with the discharge instructions and disposition.
[2016-09-11 15:57] LABS: BASO # 0.1 K/uL (0.0-0.2); BASO % 1.2 % (0.0-2.0); EOS % 0.2 % (0.0-4.0); LYMPH # 0.4 K/uL (1.0-4.3); LYMPH % 6.2 % (20.0-40.0); MEAN CELL VOLUME 90.5 fl (81.0-99.0); MEAN CORPUSCULAR HEMOGLOBIN 29.1 pg (27.0-31.0); MEAN CORPUSCULAR HGB CONC 32.2 g/dL (33.0-37.0); MEAN PLATELET VOLUME 7.9 fl (7.2-11.7); MONO # 0.4 K/uL (0.0-0.8); MONO % 5.7 % (0.0-10.0); NEUT % 86.7 % (50.0-75.0); NRBC % 0.1 % (0.0-0.0); PLATELET COUNT 253 K/uL (130-400); RED CELL DISTRIBUTION WIDTH 15.9 % (11.5-14.5)
[2016-09-11 16:13] LABS: ALB/GLOB RATIO 1.3 (1.0-2.1); BILIRUBIN,TOTAL 0.6 mg/dl (0.2-1.3); POTASSIUM 4.1 MMOL/L (3.6-5.0); TOTAL PROTEIN 8.5 G/DL (6.3-8.2)
[2016-09-11 16:44] LABS: PARTIAL THROMBOPLASTIN TIME 25.6 Seconds (25.6-37.1)
[2016-09-11] MEDS ORDERED: Iohexol 240 (50 ml) PO STA (17:02)
--- NOTE | 2016-09-11 17:11 | US ---
HISTORY: RUQ pain COMPARISON: CT abdomen and pelvis without contrast performed 04/26/16 TECHNIQUE: Sonographic evaluation of the right upper quadrant of the abdomen. FINDINGS: LIVER: Measures 14.0 cm in length and appears within normal limits of shape, size, and echotexture. No focal hepatic mass identified. The main portal vein appears patent with normal directional flow. No intrahepatic bile duct dilatation. GALLBLADDER: No gallstones. No gallbladder wall thickening or pericholecystic edema. Negative sonographic Madrid's sign as assessed by the engraver optical frames. COMMON BILE DUCT: Measures 7 mm. PANCREAS: Not well-visualized. RIGHT KIDNEY: Measures approximately 10.5 x 3.8 x 4.6 cm. No hydronephrosis or obstructing calculus identified. AORTA: Limited visualization appears grossly unremarkable. IVC: Limited visualization appears grossly unremarkable. OTHER FINDINGS: None . IMPRESSION: Unremarkable limited abdominal ultrasound as above.
--- NOTE | 2016-09-11 17:12 | ED PDOC ---
- Laboratory Results Result Diagrams: 09/11/16 15:30 09/11/16 15:30 - ECG O2 Sat by Pulse Oximetry: 99 Medical Decision Making Medical Decision Makin:00 Pt signed out to me by Dr. Serina MD. Pending CT scan, re-evaluation, and final disposition. Documented by Kvng Moulton, acting as a scribe for Kaycee Matias MD. All medical record entries made by the Scribe were at my direction and personally dictated by me. I have reviewed the chart and agree that the record accurately reflects my personal performance of the history, physical exam, medical decision making, and the department course for this patient. I have also personally directed, reviewed, and agree with the discharge instructions and disposition. Disposition - Clinical Impression Clinical Impression: Abdominal pain - POA Present On Arrival: None - Disposition Disposition: Routine/Home Disposition Time: 17:00 Condition: IMPROVED ED OBSERVATION Date of observation admission: 09/11/16 Time of observation admission: 17:00 - Observation admission statement Patient is being placed in observation because:: Need for additional diagnostics - Goals of Observation Goals of observation are:: CT scan and final disposition - Progress Note Progress Note: 17:00 Pt stable. Drinking for CT. 20:00 Pt feeling better. Tolerating PO Accession No. : [id number] Patient Name / ID : ANTONELLA LANG / [id number] Exam Date : 09/11/2016 19:55:29 ( Approved ) Study Comment : Sex / Age : F / 76Y Creator : MEGHNA CHANDLER Dictator : Runner On : Food Vendor : MEGHNA CHANDLER Approver2 : Report Date : 09/11/2016 20:44:00 My Comment : [facility] Division of Radiology [address] [place] [address] Tel. no. Patient Name: RICKEY BERMAN Pt. Address: [address] [place] [address]. Rec #: [id number] [place] [id number] Ordering Dr: Serina GALLOWAY,Asia Rojo Pt HOME Order Location: [facility] : 1940 Female Age: 76 Order #: [id number] Reason for exam: RUQ pain, vomiting CT Scan ABD PELVIS PO CONTRAST ONLY Exam Date: 09/11/16 This imaging exam was performed at [facility] EXAM: CT Abdomen and Pelvis With Intravenous Contrast CLINICAL HISTORY: 76 years old, female; Pain; Abdominal pain; Generalized; Additional info: Ruq pain, vomiting TECHNIQUE: Axial computed tomography images of the abdomen and pelvis with intravenous contrast. This CT exam was performed using one or more of the following dose reduction techniques: automated exposure control, adjustment of the mA and/or kV according to patient size, and/or use of iterative reconstruction technique. Coronal and sagittal reformatted images were created and reviewed. CONTRAST: 0 mL of oral administered intravenously. EXAM DATE/TIME: 09/11/2016 5:02 PM COMPARISON: There are no prior studies for comparison. FINDINGS: Artifacts: Motion artifact degrades image quality. Lower thorax: Heart size is normal. There is calcification of the mitral annulus. There is a small right pleural effusion. There is scarring at the lung bases. There is patchy airspace disease at the lung bases. There is nodular pleural thickening greatest at the left base. There is a small hiatal hernia ABDOMEN: Liver: unremarkable Gallbladder and bile ducts: Gallbladder is distended. Common bile duct is prominent. Pancreas: Pancreas is mildly atrophic. Spleen: unremarkable Adrenals: unremarkable Kidneys and ureters: There is nonspecific bilateral perinephric Kidneys and ureters are otherwise unremarkable. Stomach and bowel: Stomach is almost empty. Rotation is normal. There is mild duodenal fold thickening. There is no obstruction. There are 2 distal ileal diverticula. There is mild distal and terminal ileal wall thickening. Appendix is not visualized. There is no pericecal inflammation.Colon is incompletely distended which limits evaluation. There is scattered diverticulosis Appendix: See stomach and bowel PELVIS: Bladder: unremarkable Reproductive: Uterus is severely atrophic or absent. There are no adnexal masses. ABDOMEN and PELVIS: Intraperitoneal space: There is no free air or free fluid. Bones/joints: Bony structures are osteopenic. There are degenerative changes. There is a compression fracture at L1. Soft tissues: There is a fat containing umbilical hernia. Vasculature: There are vascular calcifications. Lymph nodes: There is no pathologic adenopathy. IMPRESSION: Small right pleural effusion with patchy airspace disease at the right base; atelectasis and scarring at both lung bases; mildly distended gallbladder with prominent common duct; no acute solid visceral abnormality; possible enteritis; diverticulosis without CT findings of diverticulitis Additional findings as described above. Dictated By: Meghna Chandler MD, MD Dictated Date/Time: 09/11/162043 Signed By: Meghna Chandler MD Date Signed: 2043 Transcribed By: CJ Transcribe Date/Time : 09/11/162043 RHONDA/MARIA L UNDERWOOD pt findings and plan of care. Stable for DC. Pt eager to go home
[2016-09-11] MEDS ORDERED: Iohexol 240 (50 ml) ONE (17:19)
[2016-09-11 18:06] LABS: BASOPHIL 1 % (0-2); NEUTROPHIL 84 % (42-75); TOTAL CELLS COUNTED 100
[2016-09-11 20:27] VITALS: TEMP 99.1
--- NOTE | 2016-09-11 20:45 | CT ---
EXAM: CT Abdomen and Pelvis With Intravenous Contrast CLINICAL HISTORY: 76 years old, female; Pain; Abdominal pain; Generalized; Additional info: Ruq pain, vomiting TECHNIQUE: Axial computed tomography images of the abdomen and pelvis with intravenous contrast. This CT exam was performed using one or more of the following dose reduction techniques: automated exposure control, adjustment of the mA and/or kV according to patient size, and/or use of iterative reconstruction technique. Coronal and sagittal reformatted images were created and reviewed. CONTRAST: 0 mL of oral administered intravenously. EXAM DATE/TIME: 09/11/2016 5:02 PM COMPARISON: There are no prior studies for comparison. FINDINGS: Artifacts: Motion artifact degrades image quality. Lower thorax: Heart size is normal. There is calcification of the mitral annulus. There is a small right pleural effusion. There is scarring at the lung bases. There is patchy airspace disease at the lung bases. There is nodular pleural thickening greatest at the left base. There is a small hiatal hernia ABDOMEN: Liver: unremarkable Gallbladder and bile ducts: Gallbladder is distended. Common bile duct is prominent. Pancreas: Pancreas is mildly atrophic. Spleen: unremarkable Adrenals: unremarkable Kidneys and ureters: There is nonspecific bilateral perinephric Kidneys and ureters are otherwise unremarkable. Stomach and bowel: Stomach is almost empty. Rotation is normal. There is mild duodenal fold thickening. There is no obstruction. There are 2 distal ileal diverticula. There is mild distal and terminal ileal wall thickening. Appendix is not visualized. There is no pericecal inflammation.Colon is incompletely distended which limits evaluation. There is scattered diverticulosis Appendix: See stomach and bowel PELVIS: Bladder: unremarkable Reproductive: Uterus is severely atrophic or absent. There are no adnexal masses. ABDOMEN and PELVIS: Intraperitoneal space: There is no free air or free fluid. Bones/joints: Bony structures are osteopenic. There are degenerative changes. There is a compression fracture at L1. Soft tissues: There is a fat containing umbilical hernia. Vasculature: There are vascular calcifications. Lymph nodes: There is no pathologic adenopathy. IMPRESSION: Small right pleural effusion with patchy airspace disease at the right base; atelectasis and scarring at both lung bases; mildly distended gallbladder with prominent common duct; no acute solid visceral abnormality; possible enteritis; diverticulosis without CT findings of diverticulitis Additional findings as described above.
[2016-09-11 21:37] VITALS: BP 151/79; PULSE 88; RESP 16; O2SAT 98
--- NOTE | 2016-09-12 13:52 | CARD ---
APPROVED REPORT EKG Measurement Heart [id number] <Conclusion> Normal sinus rhythm Normal ECG
== END 2016-09-11 21:01 | disposition home or self-care (01) ==
LOC: H.ER 14:56 → H.EROBSV 17:03
PROVIDERS: ADMIT Emergency Medicine; ATTEND Emergency Medicine
DX: R10.11 Right upper quadrant pain (principal); I48.91 Unspecified atrial fibrillation; J45.909 Unspecified asthma, uncomplicated; Z95.5 Presence of coronary angioplasty implant and graft; I25.10 Atherosclerotic heart disease of native coronary artery without angina pectoris; I11.0 Hypertensive heart disease with heart failure; I50.9 Heart failure, unspecified; J44.9 Chronic obstructive pulmonary disease, unspecified; F32.9 Major depressive disorder, single episode, unspecified; E11.9 Type 2 diabetes mellitus without complications; K29.70 Gastritis, unspecified, without bleeding; E78.00 Pure hypercholesterolemia, unspecified; E78.5 Hyperlipidemia, unspecified; M81.0 Age-related osteoporosis without current pathological fracture
CPT/HCPCS: 74176; 76705; 80053; 82948; 83690; 85025; 85610; 85730; 93005; 99282; G0378; J2405; J7040; Q9966

== ENCOUNTER 2016-12-04 09:37 | Emergency (ER) | payer MEDICAID, MEDICARE, OTHER ==
--- NOTE | 2016-12-04 10:02 | ED PDOC ---
HPI: Trauma/Fall - HPI Time Seen by Provider: 12/04/16 09:47 Chief Complaint (Nursing): Hip Pain Chief Complaint (Provider): Hip Pain History Per: Patient History/Exam Limitations: no limitations Onset/Duration Of Symptoms: Days (x2) Additional Complaint(s): Brandee Najera is a 76 year old female with a past medical history of hypertension, high cholesterol, anxiety, anemia, hepatitis B, CAD, COPD, osteoporosis, afib, bronchitis, cardiac arrhythmias, CHF, pneuomia, depression, diabetes, gastritis, and gall bladder disease presenting to the ED for an evaluation of a left hip injury occurring after experiencing a fall on Sunday , 2 days prior to arrival. The patient complains of pain to her left hip, reporting pain with ambulation. She denies any other injury, neck or back pain, or loss of consciousness. PMD: Non CPH Provider Past Medical History Reviewed: Historical Data, Nursing Documentation, Vital Signs Vital Signs: Last Vital Signs Temp 97.8 F 12/04/16 09:48 Pulse 79 12/04/16 09:48 Resp 16 12/04/16 09:48 BP 152/79 H 12/04/16 09:48 Pulse Ox 95 12/04/16 10:09 - Medical History PMH: Anemia, Anxiety, Arthritis, Asthma, Atrial Fibrillation, Back Problems ( had recent injury/fall and was hospitalized for back pain(no findings)), Bronchitis, CAD, Cardia Arrhythmia, CHF, COPD, Depression, Diabetes (type II), Gastritis, Gall Bladder Disease, Hepatitis (B), HTN, Hypercholesterolemia, Hyperlipidemia, Osteoporosis, Peripheral Edema, Pneumonia Denies: HIV, End Stage Renal Disease, Chronic Kidney Disease - Surgical History Surgical History: Cholecystectomy (pt reports she just had gallstones removed), Coronary Stent - Family History Family History: States: Hypertension - Social History Current smoker - smoking cessation education provided: No Ex-Smoker (has not smoked in the last 12 months): No Alcohol: None Drugs: Denies - Immunization History Hx Tetanus Toxoid Vaccination: No Hx Influenza Vaccination: Yes Hx Pneumococcal Vaccination: Yes - Home Medications Home Medications: Ambulatory Orders Medication Instructions Recorded Furosemide [Lasix] 40 mg PO DAILY 07/17/16 GlipiZIDE [Glucotrol] 10 mg PO BID 07/17/16 Lorazepam [Ativan] 0.5 mg PO HS 07/17/16 Metoprolol Tartrate [Lopressor] 100 mg PO Q12H 07/17/16 Pantoprazole Sodium [Protonix] 40 mg PO BID 07/17/16 Pravastatin Sodium [Pravachol] 40 mg PO DAILY 07/17/16 Sucralfate [Carafate Tab] 1 gm PO BID 07/17/16 amLODIPine [Norvasc] 10 mg PO DAILY 07/17/16 cloNIDine [Catapres] 0.1 mg PO Q8H 07/17/16 Bisoprolol [Zebeta] 10 mg PO DAILY #30 tab 07/21/16 Levofloxacin [Levaquin] 500 mg PO DAILY #7 tablet 07/21/16 Famotidine [Pepcid] 40 mg PO DAILY PRN #30 tab 09/11/16 Naproxen [Naprosyn] 500 mg PO Q12H #20 tab 12/04/16 - Allergies Allergies/Adverse Reactions: Allergies Allergy/AdvReac Type Severity Reaction Status Date / Time alprazolam [From Xanax] Allergy SWELLING Verified 07/17/16 09:43 hydromorphone HCl Allergy RASH Verified 07/17/16 09:43 [From Dilaudid] zolpidem tartrate Allergy RASH Verified 07/17/16 09:43 [From Ambien] Review of Systems ROS Statement: Except As Marked, All Systems Reviewed And Found Negative Musculoskeletal: Positive for: Leg Pain (left hip pain ). Negative for: Neck Pain, Back Pain Neurological: Negative for: Other (no loss of consciousness ) Physical Exam - Reviewed Nursing Documentation Reviewed: Yes Vital Signs Reviewed: Yes - Physical Exam Appears: Positive for: Well, Non-toxic, No Acute Distress Head Exam: Positive for: ATRAUMATIC, NORMAL INSPECTION, NORMOCEPHALIC Skin: Positive for: Normal Color, Warm, DRY Eye Exam: Positive for: EOMI, Normal appearance, PERRL ENT: Positive for: Normal ENT Inspection Neck: Positive for: Normal, Painless ROM Cardiovascular/Chest: Positive for: Regular Rate, Rhythm, Chest Non Tender Respiratory: Positive for: Normal Breath Sounds. Negative for: Accessory Muscle Use, Respiratory Distress Gastrointestinal/Abdominal: Positive for: Normal Exam, Bowel Sounds, Soft Back: Negative for: Vertebral Tenderness (no spinal tenderness ) Extremity: Positive for: Tenderness (to left hip). Negative for: Deformity (to left hip), Other (no ecchymosis or shortening to left hip) Neurologic/Psych: Positive for: Alert, Oriented (x3). Negative for: Motor/ Sensory Deficits - ECG O2 Sat by Pulse Oximetry: 95 (RA) Pulse Ox Interpretation: Normal Medical Decision Making Medical Decision Making: Time: 09:47 Impression: Left hip injury s/p fall Plan: * Toradol 30 mg IM * Hip Min 2V W/ pelvis LT [RAD] * Reevaluation Scribe Attestation: Documented by Melissa Rm, acting as a scribe for Felipe Clemons MD. Provider Scribe Attestation: All medical record entries made by the Scribe were at my direction and personally dictated by me. I have reviewed the chart and agree that the record accurately reflects my personal performance of the history, physical exam, medical decision making, and the department course for this patient. I have also personally directed, reviewed, and agree with the discharge instructions and disposition. Disposition - Clinical Impression Clinical Impression: Contusion of hip - Patient ED Disposition Is Patient to be Admitted: No Counseled Patient/Family Regarding: Studies Performed, Diagnosis, Need For Followup, Rx Given - Disposition Referrals: [facility] [Outside] Disposition: Routine/Home Disposition Time: 10:36 Condition: FAIR Prescriptions: Naproxen [Naprosyn] 500 mg PO Q12H #20 tab Instructions: Contusion in Adults (ED), Hip Contusion (ED) Forms: [employer] (Maltese)
[2016-12-04 10:52] VITALS: BP 128/78; PULSE 78; RESP 19; TEMP 97.6; O2SAT 98
--- NOTE | 2016-12-04 13:12 | RAD ---
PROCEDURE: Pelvis left hip dated 12/04/2016 AP view of the pelvis and AP/frogleg lateral views left hip performed. COMPARISON: Comparison made with prior radiographs of pelvis and both hips 05/12/2016. Comparison also made with CT scan abdomen pelvis 09/11/2016 which image the pelvis and both hips in 3 planes. FINDINGS: BONES: No evidence of acute displaced fracture nor dislocation. The osseous structures appear intact. Both femoral heads are appropriately located within the respective acetabula. Degenerative changes both hip joints. Elliptical shaped sclerotic lesion within the left iliac bone again noted which could represent bone island or osteoma. Tiny sclerotic focus within the left femoral head is not well seen compared to high-resolution CT scan if symptoms persist or occult fracture suspected clinically consider followup CT scan. Impression: No evidence of acute Displaced fracture nor dislocation. DJD both hips as described. If symptoms persist or occult fracture suspected clinically recommend followup CT scan or MRI.
== END 2016-12-04 10:53 | disposition home or self-care (01) ==
LOC: H.ER 09:37
DX: M25.552 Pain in left hip (principal); D64.9 Anemia, unspecified; E11.9 Type 2 diabetes mellitus without complications; F32.9 Major depressive disorder, single episode, unspecified; F41.9 Anxiety disorder, unspecified; I11.0 Hypertensive heart disease with heart failure; I25.10 Atherosclerotic heart disease of native coronary artery without angina pectoris; I48.91 Unspecified atrial fibrillation; Z95.5 Presence of coronary angioplasty implant and graft
CPT/HCPCS: 73502; 96372; 99282; J1885

== ENCOUNTER 2017-03-11 10:34 | Emergency (ER) | payer MEDICARE, MEDICAID ==
[2017-03-11 10:39] VITALS: BMI 28.4
[2017-03-11 10:41] VITALS: TEMP 98.1; O2SAT 97
--- NOTE | 2017-03-11 11:03 | ED PDOC ---
HPI: General Adult Time Seen by Provider: 03/11/17 11:01 Chief Complaint (Nursing): Upper Extremity Problem/Injury Chief Complaint (Provider): back pain, shoulder pain History Per: Patient Additional Complaint(s): 77-year-old female with history of arthritis and lower back pain presents to emergency department with worsening back pain and pain to right shoulder. Patient denies fall or trauma. No associated chest pain, shortness of breath or dyspnea on exertion. Patient took Tylenol earlier which did not help the pain. She is able to walk but has slight pain to lower back when doing so. She states whenever she lifts her right arm she feels worsening pain in right shoulder. Past Medical History Reviewed: Historical Data Vital Signs: Last Vital Signs Temp 98.1 F 03/11/17 10:39 Pulse 78 03/11/17 10:39 Resp 16 03/11/17 10:39 BP 190/84 H 03/11/17 10:39 Pulse Ox 97 03/11/17 13:39 - Medical History PMH: Anemia, Anxiety, Arthritis, Asthma, Atrial Fibrillation, Back Problems, CAD , Cardia Arrhythmia, CHF, COPD, Depression, Diabetes (type II), Gastritis, Hepatitis (B), HTN, Hypercholesterolemia, Hyperlipidemia, Osteoporosis, Peripheral Edema - Surgical History Surgical History: Cholecystectomy, Coronary Stent, (x 2) Other surgeries: hysterectomy - Family History Family History: States: Hypertension - Living Arrangements Living Arrangements: Alone - Social History Current smoker - smoking cessation education provided: No Alcohol: None Drugs: Denies - Home Medications Home Medications: Ambulatory Orders Medication Instructions Recorded Furosemide [Lasix] 40 mg PO DAILY 07/17/16 GlipiZIDE [Glucotrol] 10 mg PO BID 07/17/16 Lorazepam [Ativan] 0.5 mg PO HS 07/17/16 Metoprolol Tartrate [Lopressor] 100 mg PO Q12H 07/17/16 Pantoprazole Sodium [Protonix] 40 mg PO BID 07/17/16 Pravastatin Sodium [Pravachol] 40 mg PO DAILY 07/17/16 Sucralfate [Carafate Tab] 1 gm PO BID 07/17/16 amLODIPine [Norvasc] 10 mg PO DAILY 07/17/16 cloNIDine [Catapres] 0.1 mg PO Q8H 07/17/16 Bisoprolol [Zebeta] 10 mg PO DAILY #30 tab 07/21/16 Levofloxacin [Levaquin] 500 mg PO DAILY #7 tablet 07/21/16 Famotidine [Pepcid] 40 mg PO DAILY PRN #30 tab 09/11/16 Naproxen [Naprosyn] 500 mg PO Q12H #20 tab 12/04/16 traMADol [Ultram] 50 mg PO TID PRN #15 tab 03/11/17 - Allergies Allergies/Adverse Reactions: Allergies Allergy/AdvReac Type Severity Reaction Status Date / Time alprazolam [From Xanax] Allergy SWELLING Verified 03/11/17 10:51 hydromorphone HCl Allergy RASH Verified 03/11/17 10:51 [From Dilaudid] zolpidem tartrate Allergy RASH Verified 03/11/17 10:51 [From Ambien] Review of Systems ROS Statement: Except As Marked, All Systems Reviewed And Found Negative Constitutional: Negative for: Fever Cardiovascular: Negative for: Chest Pain Gastrointestinal: Negative for: Nausea, Vomiting Musculoskeletal: Positive for: Shoulder Pain (right), Back Pain Neurological: Negative for: Headache, Dizziness Physical Exam - Reviewed Nursing Documentation Reviewed: Yes Vital Signs Reviewed: Yes - Physical Exam Appears: Positive for: Well, Non-toxic, No Acute Distress Skin: Negative for: Rash Eye Exam: Positive for: Normal appearance Neck: Positive for: Normal, Painless ROM Cardiovascular/Chest: Positive for: Regular Rate, Rhythm Respiratory: Positive for: Normal Breath Sounds Back: Positive for: Vertebral Tenderness (lumbar). 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 Patient is aware of all diagnostic testing results. All questions answered. Prescription provided for tramadol. Patient was advised to follow-up this week with primary doctor. Disposition - Clinical Impression Clinical Impression: Shoulder pain, Chronic lower back pain, Arthritis - Patient ED Disposition Is Patient to be Admitted: No Counseled Patient/Family Regarding: Studies Performed, Diagnosis, Need For Followup, Rx Given - Disposition Referrals: Manpreet Austin MD [Staff Provider] - Disposition: Routine/Home Disposition Time: 13:39 Condition: IMPROVED Additional Instructions: Take prescription medications as directed. Continue with current medications that you take at home. Follow-up in one to 2 days with primary care doctor. Prescriptions: traMADol [Ultram] 50 mg PO TID PRN #15 tab PRN Reason: Pain, Moderate (4-7) Instructions: Back Pain (ED), Arthralgia (ED), Shoulder Pain (ED) Forms: [facility] (Icelandic)
[2017-03-11 13:54] VITALS: BP 159/80; PULSE 72; RESP 18
--- NOTE | 2017-03-11 15:45 | RAD ---
PROCEDURE: Radiographs of the Right Shoulder HISTORY: pain COMPARISON: No prior. FINDINGS: BONES: Normal. No fracture. JOINTS: Acromioclavicular osteoarthritis. Elevated humeral head compatible chronic rotator cuff arthropathy. SOFT TISSUES: Normal. OTHER FINDINGS: None. IMPRESSION: Acromioclavicular osteoarthritis. Elevated humeral head compatible chronic rotator cuff arthropathy.
--- NOTE | 2017-03-14 17:37 | CARD ---
APPROVED REPORT EKG Measurement Heart [id number] <Conclusion> Normal sinus rhythm Normal ECG
== END 2017-03-11 13:48 | disposition home or self-care (01) ==
LOC: H.ER 10:34
DX: M54.9 Dorsalgia, unspecified (principal); M25.511 Pain in right shoulder; M19.90 Unspecified osteoarthritis, unspecified site; E11.9 Type 2 diabetes mellitus without complications; E78.00 Pure hypercholesterolemia, unspecified; F32.9 Major depressive disorder, single episode, unspecified; F41.9 Anxiety disorder, unspecified; G89.29 Other chronic pain; I11.0 Hypertensive heart disease with heart failure; I25.10 Atherosclerotic heart disease of native coronary artery without angina pectoris; I48.91 Unspecified atrial fibrillation; Z90.710 Acquired absence of both cervix and uterus; Z95.5 Presence of coronary angioplasty implant and graft
CPT/HCPCS: 73030; 93005; 96372; 99283; J1885

== ENCOUNTER 2017-05-05 14:47 | Inpatient (IN) | payer MEDICARE, MEDICAID ==
[2017-05-05 14:47] VITALS: BMI 28.4
[2017-05-05] MEDS ORDERED: Sodium Chloride 0.9% 1,000 ML IV STA (15:29)
[2017-05-05] MEDS ORDERED: Albuterol-Ipratrop 3 mg / 0.5 (3 ml) UD IH STA ×2 (15:29→18:22)
--- NOTE | 2017-05-05 15:33 | ED PDOC ---
HPI: CCC, URI, Sore Throat Time Seen by Provider: 05/05/17 15:25 Chief Complaint (Nursing): GI Problem History Per: Patient Onset/Duration Of Symptoms: Days (3) Current Symptoms Are (Timing): Still Present Associated Symptoms: Cough, Sputum, Vomiting, Diarrhea. denies: Fever Severity: Moderate Pain Scale Rating Of: 2 Additional Complaint(s): Non productive cough assoc with back pain. Also c/o epigastric pain assoc with nausea vomiting and diarrhea x 2 days. No fever or bleeding Past Medical History Vital Signs: Last Vital Signs Temp 98.8 F 05/05/17 15:12 Pulse 81 05/05/17 15:12 Resp 16 05/05/17 15:12 BP 150/66 05/05/17 15:12 Pulse Ox 98 05/05/17 15:33 - Medical History PMH: Anemia, Anxiety, Arthritis, Asthma, Atrial Fibrillation, Back Problems ( had recent injury/fall and was hospitalized for back pain(no findings)), Bronchitis, CAD, Cardia Arrhythmia, CHF, COPD, Depression, Diabetes (type II), Gastritis, Gall Bladder Disease, Hepatitis (B), HTN, Hypercholesterolemia, Hyperlipidemia, Osteoporosis, Peripheral Edema, Pneumonia Denies: HIV, End Stage Renal Disease, Chronic Kidney Disease - Surgical History Surgical History: Cholecystectomy, Coronary Stent, (x 2) - Family History Family History: States: Hypertension - Immunization History Hx Tetanus Toxoid Vaccination: No Hx Influenza Vaccination: Yes Hx Pneumococcal Vaccination: Yes - Home Medications Home Medications: Ambulatory Orders Medication Instructions Recorded Furosemide [Lasix] 40 mg PO DAILY 07/17/16 GlipiZIDE [Glucotrol] 10 mg PO BID 07/17/16 Lorazepam [Ativan] 0.5 mg PO HS 07/17/16 Metoprolol Tartrate [Lopressor] 100 mg PO Q12H 07/17/16 Pantoprazole Sodium [Protonix] 40 mg PO BID 07/17/16 Pravastatin Sodium [Pravachol] 40 mg PO DAILY 07/17/16 Sucralfate [Carafate Tab] 1 gm PO BID 07/17/16 amLODIPine [Norvasc] 10 mg PO DAILY 07/17/16 cloNIDine [Catapres] 0.1 mg PO Q8H 07/17/16 Bisoprolol [Zebeta] 10 mg PO DAILY #30 tab 07/21/16 Levofloxacin [Levaquin] 500 mg PO DAILY #7 tablet 07/21/16 Famotidine [Pepcid] 40 mg PO DAILY PRN #30 tab 09/11/16 Naproxen [Naprosyn] 500 mg PO Q12H #20 tab 12/04/16 traMADol [Ultram] 50 mg PO TID PRN #15 tab 03/11/17 - Allergies Allergies/Adverse Reactions: Allergies Allergy/AdvReac Type Severity Reaction Status Date / Time alprazolam [From Xanax] Allergy SWELLING Verified 05/05/17 15:11 hydromorphone HCl Allergy RASH Verified 05/05/17 15:11 [From Dilaudid] zolpidem tartrate Allergy RASH Verified 05/05/17 15:11 [From Ambien] Review of Systems ROS Statement: Except As Marked, All Systems Reviewed And Found Negative Respiratory: Positive for: Cough, Pleuritic Pain, Wheezing Gastrointestinal: Positive for: Nausea, Vomiting, Abdominal Pain, Diarrhea Physical Exam - Reviewed Nursing Documentation Reviewed: Yes Vital Signs Reviewed: Yes - Physical Exam Appears: Positive for: Non-toxic, No Acute Distress Head Exam: Positive for: ATRAUMATIC, NORMAL INSPECTION, NORMOCEPHALIC Skin: Positive for: Normal Color, Warm, DRY Eye Exam: Positive for: EOMI, Normal appearance, PERRL ENT: Positive for: Normal ENT Inspection Neck: Positive for: Normal, Painless ROM Cardiovascular/Chest: Positive for: Regular Rate, Rhythm Respiratory: Positive for: Rhonchi, Wheezing. Negative for: Respiratory Distress Gastrointestinal/Abdominal: Positive for: Bowel Sounds, Soft, Tenderness ( epigastric) Back: Positive for: Normal Inspection Extremity: Positive for: Normal ROM Neurologic/Psych: Positive for: Alert, Oriented - Laboratory Results Result Diagrams: 05/05/17 16:32 05/05/17 16:32 - ECG O2 Sat by Pulse Oximetry: 98 Disposition - Clinical Impression Clinical Impression: Gastroenteritis, Interstitial lung disease - Patient ED Disposition Is Patient to be Admitted: Yes - Disposition Disposition Time: 19:08 Condition: FAIR Forms: [facility] (Uzbek) - Pt Status Changed To: Hospital Disposition Of: Observation - POA Present On Arrival: None
--- NOTE | 2017-05-05 16:07 | RAD ---
HISTORY: cough COMPARISON: Chest radiograph dated 07/20/2016. TECHNIQUE: Chest PA and lateral FINDINGS: LUNGS: Stable chronic prominence of the bilateral interstitial markings. Bilateral midlung linear scarring. No focal consolidation PLEURA: No significant pleural effusion identified. No pneumothorax apparent. CARDIOVASCULAR: Atherosclerotic aortic calcifications. Cardiomediastinal silhouette stably prominent. OSSEOUS STRUCTURES: Unchanged. VISUALIZED UPPER ABDOMEN: Normal. OTHER FINDINGS: None. IMPRESSION: Stable chronic prominence of the bilateral interstitial markings. No focal consolidation or pleural effusion.
[2017-05-05 16:39] LABS: BASO % 1.1 % (0.0-2.0); EOS % 0.8 % (0.0-4.0); HEMOGLOBIN 10.7 g/dL (12.0-16.0); LYMPH # 0.6 K/uL (1.0-4.3); LYMPH % 14.1 % (20.0-40.0); MEAN CELL VOLUME 91.9 fl (81.0-99.0); MEAN CORPUSCULAR HEMOGLOBIN 28.8 pg (27.0-31.0); MEAN CORPUSCULAR HGB CONC 31.4 g/dL (33.0-37.0); MONO # 0.7 K/uL (0.0-0.8); NEUT # 2.8 K/uL (1.8-7.0); NRBC % 0.1 % (0.0-0.0); RBC 3.71 Mil/uL (3.80-5.20); RED CELL DISTRIBUTION WIDTH 14.7 % (11.5-14.5); WHITE BLOOD COUNT 4.2 K/uL (4.8-10.8)
[2017-05-05] MEDS ORDERED: Albuterol-Ipratrop 3 mg / 0.5 (3 ml) UD ONE ×2 (16:43→20:28)
[2017-05-05 16:49] LABS: VENOUS BLOOD GAS BASE EXCESS -4.2 mmol/L (0.0-2.0); VENOUS BLOOD GAS PCO2 56 mmHg (40-60); VENOUS BLOOD GAS PO2 25 mm/Hg (30-55); VENOUS BLOOD PH 7.24 (7.32-7.43)
[2017-05-05 17:12] LABS: ALBUMIN 3.3 g/dL (3.5-5.0)
[2017-05-06] MEDS ORDERED: Insulin Lispro (humaLOG) 100 Units/ml Inj SC SCH ×2 (07:30→12:06)
[2017-05-06 08:48] LABS: HEMOGLOBIN 11.5 g/dL (12.0-16.0); MEAN CELL VOLUME 91.4 fl (81.0-99.0); MEAN CORPUSCULAR HEMOGLOBIN 28.7 pg (27.0-31.0); MEAN CORPUSCULAR HGB CONC 31.4 g/dL (33.0-37.0); WHITE BLOOD COUNT 4.9 K/uL (4.8-10.8)
[2017-05-06 09:15] LABS: ALB/GLOB RATIO 1.2 (1.0-2.1); CALCIUM 8.1 mg/dL (8.4-10.2)
[2017-05-06] MEDS: MethylPREDNISolone 40 mg Vial IVP SCH ×3 (09:19→21:45)
[2017-05-06] MEDS: Enoxaparin 30 mg Syringe SC SCH (09:20)
[2017-05-06] MEDS: Pantoprazole 40 mg EC Tab PO SCH ×2 (09:20→17:01)
[2017-05-06] MEDS: Pravastatin Sodium 40 MG TAB PO SCH (09:21)
--- NOTE | 2017-05-06 11:19 | CARD ---
APPROVED REPORT EKG Measurement Heart [id number] P42 [id number] <Conclusion> Undetermined rhythm Cannot rule out Anterior infarct, age undetermined Abnormal ECG
[2017-05-06] MEDS ORDERED: Insulin Detemir 100 Units/ml Inj SC ONE (12:05)
[2017-05-06] MEDS: Insulin Lispro (humaLOG) 100 Units/ml Inj SC SCH ×3 (12:51→21:44)
--- NOTE | 2017-05-06 12:58 | HP ---
CHIEF COMPLAINT: Abdominal pain and coughing. HISTORY OF PRESENT ILLNESS: This is a 77-year-old female with known case of diabetes, hypertension, bronchial asthma, COPD and dyspepsia who was feeling sick for last few days. The patient was having abdominal pain, back pain, cough and dyspnea on exertion which did not improve from her usual medication and got worse. The patient was brought to Emergency Room, where the patient was found in acute exacerbation of COPD and was admitted for further management. REVIEW OF SYSTEMS: Positive for lower abdominal pain, back pain, shortness of breath, and coughing. Review of systems otherwise is negative for headache, dizziness, syncope, loss of consciousness, chest pain, nausea, vomiting, diarrhea, constipation, anemia, joint or extremity pain, other than back pain. Review of systems of all other organ system is unremarkable. PAST MEDICAL HISTORY: Significant for hypertension, diabetes, elevated cholesterol, bronchial asthma, COPD, anxiety, and arthritis. PAST SURGICAL HISTORY: Unremarkable. PERSONAL HISTORY: The patient is currently nonsmoker, nondrinker, and no substance abuse. MEDICATIONS: The patient is on multiple medications which include clonidine, aspirin, Carafate, Glucotrol, Isordil, sitagliptin, metoprolol, amlodipine, pravastatin, Protonix, doxepin, and Tylenol. ALLERGIES: THE PATIENT IS ALLERGIC TO XANAX, DILAUDID, AND AMBIEN. FAMILY HISTORY: Noncontributory. PHYSICAL EXAMINATION: GENERAL: A well-built and well-nourished, chronically sick-looking elderly female, in no acute distress. VITAL SIGNS: Temperature of 98.5, pulse of 86, respirations of 18, blood pressure of 158/79, and oxygen saturation of 94%. HEENT: Pupils are reactive to light. No JVD. No thyromegaly. No lymphadenopathy. No nystagmus. Normocephalic and atraumatic skull. HEART: S1 and S2 normal and regular. No significant murmur, gallop, or rub is heard. LUNGS: Shows bilateral prolonged expiration, also shows poor air exchange consistent with COPD with exacerbation. ABDOMEN: Soft and nontender. No organomegaly. No fluid. Bowel sounds are present and normal. No sign of acute abdomen. No guarding. No rigidity. No rebound. EXTREMITIES: No edema. No calf swelling. No tenderness. No acute ischemia. The patient has chronic arthritis. CENTRAL NERVOUS SYSTEM: Exam is essentially unchanged from the patient usual exam and there is no sign of any acute gross focal motor or sensory neurological deficits. DIAGNOSTIC DATA: Available diagnostic data reviewed. WBC of 4.2, hemoglobin of 10.7, hematocrit of 34.1, and platelets of 205. Venous pH was 7.24 with pCO2 of 56, and pO2 of 25. Sodium of 138, potassium of 4.2, chloride of 107, bicarbonate of 21, BUN of 41, and creatinine of 2.5. sugar was 484. SMA-12 was essentially unremarkable. Flu test was negative. Chest x-ray was clear without any acute infiltrate. EKG does not reveal any acute ST-T changes. ADMITTING IMPRESSION: Acute exacerbation of chronic obstructive pulmonary disease, abdominal pain most likely from dyspepsia, back pain from chronic arthritis, hypertension, type 2 diabetes with uncontrolled sugar, coronary artery disease, and osteoarthritis. PLAN: As ordered. Case and plan discussed with the patient. Telemetry monitoring did not reveal significant arrhythmias. Manpreet Austin MD
[2017-05-06] MEDS: Insulin Detemir 100 Units/ml Inj SC SCH (21:45)
[2017-05-07] MEDS: MethylPREDNISolone 40 mg Vial IVP SCH ×3 (04:34→17:37)
[2017-05-07 06:21] LABS: MEAN CELL VOLUME 90.8 fl (81.0-99.0); MEAN CORPUSCULAR HEMOGLOBIN 28.9 pg (27.0-31.0); MEAN CORPUSCULAR HGB CONC 31.8 g/dL (33.0-37.0); RBC 3.8 Mil/uL (3.80-5.20); RED CELL DISTRIBUTION WIDTH 14.6 % (11.5-14.5); WHITE BLOOD COUNT 7.3 K/uL (4.8-10.8)
[2017-05-07 06:27] LABS: ALB/GLOB RATIO 1.1 (1.0-2.1); ALBUMIN 3.8 g/dL (3.5-5.0); CALCIUM 8.3 mg/dL (8.4-10.2)
[2017-05-07] MEDS: Pantoprazole 40 mg EC Tab PO SCH ×2 (10:01→17:38)
[2017-05-07] MEDS: Enoxaparin 30 mg Syringe SC SCH (10:01)
[2017-05-07] MEDS: Insulin Lispro (humaLOG) 100 Units/ml Inj SC SCH ×4 (10:03→22:33)
[2017-05-07] MEDS: Pravastatin Sodium 40 MG TAB PO SCH (10:04)
--- NOTE | 2017-05-07 11:48 | CARD ---
APPROVED REPORT EXAM: Two-dimensional and M-mode echocardiogram with Doppler and color Doppler. Other Information Quality : GoodRhythm : NSR INDICATION Hypertension/HCVD 2D DIMENSIONS IVSd1.06 (0.7-1.1cm)LVDd4.63 (3.9-5.9cm) LVOT Diameter1.57 (1.8-2.4cm)PWd0.71 (0.7-1.1cm) IVSs1.32 (0.8-1.2cm)LVDs3.63 (2.5-4.0cm) FS (%) 21.6 %PWs1.17 (0.8-1.2cm) M-Mode DIMENSIONS Left Atrium (MM)2.51 (2.5-4.0cm)IVSd0.89 (0.7-1.1cm) Aortic Root3.41 (2.2-3.7cm)LVDd5.96 (4.0-5.6cm) Aortic Cusp Exc.1.29 (1.5-2.0cm)PWd1.03 (0.7-1.1cm) IVSs1.36 cmFS (%) 42 % LVDs3.47 (2.0-3.8cm)PWs1.29 cm Aortic Valve AoV Peak Bmwktbcl204.1cm/sAoV VTI51.8cmAO Peak GR.19mmHg LVOT Peak Osrifnca042.2cm/sLVOT VTI28.42cmAO Mean GR.10mmHg YENNY (VMAX)0.76lh0ELR (VTI)0.71ef6EE P 1/2 Xlmy339yr Mitral Valve MV E Iekhxjon276.8cm/sMV DECEL BYWY621amRV A Sskbgupf092.1cm/s MV KHK60rpX/A ratio1.2MVA (PHT)4.52cm2 TDI Lateral E' Peak V5.21cm/sMedial E' Peak V4.64cm/sE/Lateral E'35.1 E/Medial E'39.4 Pulmonary Valve PV Peak Moshelfc819.9cm/s Tricuspid Valve TR Peak Dddfliuq391vr/sRAP NKEYGILT72poPaJH Peak Gr.47mmHg RXGU96utQx LEFT VENTRICLE The left ventricle is normal size. There is normal left ventricular wall thickness. The left ventricular function is normal. The left ventricular ejection fraction is within the normal range. The Ejection Fraction is 45-50%. There is normal LV segmental wall motion. The left ventricular diastolic function is normal. RIGHT VENTRICLE The right ventricle is normal size. The right ventricular systolic function is normal. ATRIA The left atrium size is normal. The right atrium size is normal. AORTIC VALVE The aortic valve is moderately thickened. No aortic regurgitation is present. There is moderate valvular aortic stenosis. MITRAL VALVE Mitral annular calcification is mild to moderate. There is no mitral valve stenosis. Mitral regurgitation is mild to moderate. TRICUSPID VALVE The tricuspid valve is normal in structure. There is no tricuspid valve regurgitation noted. Right ventricular systolic pressure is estimated at 57 mmHg. There is moderate pulmonary hypertension. PULMONIC VALVE The pulmonary valve is normal in structure. There is no pulmonic valvular regurgitation. GREAT VESSELS The aortic root is normal in size. The IVC is normal in size and collapses >50% with inspiration. PERICARDIAL EFFUSION The pericardium appears normal. <Conclusion> The left ventricle is normal size. The left ventricular function is normal. The left ventricular ejection fraction is within the normal range. The Ejection Fraction is 45-50%. The aortic valve is moderately thickened. There is moderate valvular aortic stenosis. Mitral annular calcification is mild to moderate. Mitral regurgitation is mild to moderate. There is no tricuspid valve regurgitation noted. Right ventricular systolic pressure is estimated at 57 mmHg. There is moderate pulmonary hypertension.
--- NOTE | 2017-05-07 13:14 | PN ---
DATE: 05/07/2017 SUBJECTIVE: The patient is seen and examined. Interim events noted. The patient feels better. Shortness of breath improved and abdominal pain resolved. No chest pain, no shortness of breath. PHYSICAL EXAMINATION: GENERAL: The patient is in no acute distress. VITAL SIGNS: Stable. HEART: S1 and S2, normal and regular. LUNGS: Improved bilateral air exchange. ABDOMEN: Soft and nontender. No organomegaly. No fluid. Bowel sounds are plus and normal. No sign of acute abdomen. No guarding, no rigidity,no rebound. EXTREMITIES: No edema, no calf swelling. No tenderness. No acute ischemia. STATISTICAL CLERK: Exam is essentially unchanged. DIAGNOSTIC DATA: Available diagnostic data reviewed. Telemetry monitoring does not reveal significant arrhythmias. Overall, the patient's general medical condition is stable and improving. Plan as ordered. Manpreet Austin MD
--- NOTE | 2017-05-07 13:28 | US ---
HISTORY: Abdomen tenderness COMPARISON: 09/11/2016. TECHNIQUE: Sonographic evaluation of the abdomen. FINDINGS: LIVER: Measures 12.8 cm. Patent portal vein. Portal venous flow: Hepatopetal. Unremarkeable echogenicity of the liver parenchyma. No mass. No intrahepatic bile duct dilatation. GALLBLADDER: Unremarkable. No gallstones. COMMON BILE DUCT: Measures 4.4 mm. No stones. No dilatation. PANCREAS: Unremarkable as visualized. No mass. No ductal dilatation. RIGHT KIDNEY: Measures 4.8 x 10.4cm. Normal echogenicity. No calculus, mass, or hydronephrosis. LEFT KIDNEY: Measures 5.4 x 11.0cm. Normal echogenicity. No calculus, mass, or hydronephrosis. SPLEEN: Normal in size and contour. No mass. AORTA: No aneurysmal dilatation. IVC: Unremarkable. OTHER FINDINGS: None. IMPRESSION: Unremarkable abdominal sonogram.No significant interval change compared to the prior examination(s).
[2017-05-07] MEDS: Insulin Detemir 100 Units/ml Inj SC SCH (22:31)
[2017-05-08] MEDS: MethylPREDNISolone 40 mg Vial IVP SCH ×3 (00:12→16:45)
[2017-05-08 06:03] LABS: HEMOGLOBIN 11.2 g/dL (12.0-16.0); MEAN CELL VOLUME 90.4 fl (81.0-99.0); MEAN CORPUSCULAR HEMOGLOBIN 29.4 pg (27.0-31.0); MEAN CORPUSCULAR HGB CONC 32.5 g/dL (33.0-37.0); RBC 3.82 Mil/uL (3.80-5.20); RED CELL DISTRIBUTION WIDTH 14.8 % (11.5-14.5); WHITE BLOOD COUNT 9.4 K/uL (4.8-10.8)
[2017-05-08 06:18] LABS: ALB/GLOB RATIO 1.1 (1.0-2.1); ALBUMIN 3.6 g/dL (3.5-5.0)
[2017-05-08] MEDS: Insulin Detemir 100 Units/ml Inj SC SCH ×2 (07:26→21:19)
[2017-05-08] MEDS: Insulin Lispro (humaLOG) 100 Units/ml Inj SC SCH ×4 (07:27→21:21)
[2017-05-08] MEDS: Pravastatin Sodium 40 MG TAB PO SCH (09:41)
[2017-05-08] MEDS: Enoxaparin 30 mg Syringe SC SCH (09:41)
[2017-05-08] MEDS: Pantoprazole 40 mg EC Tab PO SCH ×2 (09:42→16:45)
--- NOTE | 2017-05-08 11:35 | CP.PCM.DIS ---
Provider - Provider Date of Admission: 05/05/17 19:05 Attending physician: Manpreet Austin MD Time Spent in preparation of Discharge (in minutes): 30 Diagnosis - Discharge Diagnosis (1) COPD exacerbation Status: Chronic Hospital Course - Lab Results Lab Results: Micro Results 05/05/17 16:32 Blood-Venous Blood Culture - Preliminary NO GROWTH AFTER 48 HOURS Most Recent Lab Values WBC 9.4 K/uL (4.8-10.8) 05/08/17 04:20 RBC 3.82 Mil/uL (3.80-5.20) 05/08/17 04:20 Hgb 11.2 g/dL (12.0-16.0) L 05/08/17 04:20 Hct 34.5 % (34.0-47.0) 05/08/17 04:20 MCV 90.4 fl (81.0-99.0) 05/08/17 04:20 MCH 29.4 pg (27.0-31.0) 05/08/17 04:20 MCHC 32.5 g/dL (33.0-37.0) L 05/08/17 04:20 RDW 14.8 % (11.5-14.5) H 05/08/17 04:20 Plt Count 239 K/uL (130-400) 05/08/17 04:20 MPV 8.0 fl (7.2-11.7) 05/05/17 16:32 Neut % (Auto) 67.0 % (50.0-75.0) 05/05/17 16:32 Lymph % (Auto) 14.1 % (20.0-40.0) L 05/05/17 16:32 Karnes % (Auto) 17.0 % (0.0-10.0) H 05/05/17 16:32 Eos % (Auto) 0.8 % (0.0-4.0) 05/05/17 16:32 Baso % (Auto) 1.1 % (0.0-2.0) 05/05/17 16:32 Neut # (Auto) 2.8 K/uL (1.8-7.0) 05/05/17 16:32 Lymph # (Auto) 0.6 K/uL (1.0-4.3) L 05/05/17 16:32 Karnes # (Auto) 0.7 K/uL (0.0-0.8) 05/05/17 16:32 Eos # (Auto) 0.0 K/uL (0.0-0.7) 05/05/17 16:32 Baso # (Auto) 0.0 K/uL (0.0-0.2) 05/05/17 16:32 pO2 25 mm/Hg (30-55) L 05/05/17 16:33 VBG pH 7.24 (7.32-7.43) L 05/05/17 16:33 VBG pCO2 56 mmHg (40-60) 05/05/17 16:33 VBG HCO3 19.9 mmol/L 05/05/17 16:33 VBG Total CO2 25.7 mmol/L (22-28) 05/05/17 16:33 VBG O2 Sat (Calc) 55.3 % (40-65) 05/05/17 16:33 VBG Base Excess -4.2 mmol/L (0.0-2.0) L 05/05/17 16:33 VBG Potassium 4.1 mmol/L (3.6-5.2) 05/05/17 16:33 Sodium 137.0 mmol/L (132-148) 05/05/17 16:33 Chloride 105.0 mmol/L (98-107) 05/05/17 16:33 Glucose 289 mg/dL (65-105) H 05/05/17 16:33 Lactate 1.9 mmol/L (0.7-2.1) 05/05/17 16:33 FiO2 21.0 % 05/05/17 16:33 Sodium 138 mmol/l (132-148) 05/08/17 04:20 Potassium 4.5 MMOL/L (3.6-5.0) 05/08/17 04:20 Chloride 106 mmol/L (98-107) 05/08/17 04:20 Carbon Dioxide 21 mmol/L (22-30) L 05/08/17 04:20 Anion Gap 16 (10-20) 05/08/17 04:20 BUN 54 mg/dl (7-17) H 05/08/17 04:20 Creatinine 2.2 mg/dl (0.7-1.2) H 05/08/17 04:20 Est GFR ( Amer) 26 05/08/17 04:20 Est GFR (Non-Af Amer) 22 05/08/17 04:20 POC Glucose (mg/dL) 269 mg/dL (65-110) H 05/08/17 05:43 Random Glucose 319 mg/dL (65-105) H 05/08/17 04:20 Calcium 8.0 mg/dL (8.4-10.2) L 05/08/17 04:20 Total Bilirubin 0.3 mg/dl (0.2-1.3) 05/08/17 04:20 AST 19 U/L (14-36) 05/08/17 04:20 ALT 31 U/L (9-52) 05/08/17 04:20 Alkaline Phosphatase 84 U/L (38-126) 05/08/17 04:20 Total Protein 6.8 G/DL (6.3-8.2) 05/08/17 04:20 Albumin 3.6 g/dL (3.5-5.0) 05/08/17 04:20 Globulin 3.3 gm/dL (2.2-3.9) 05/08/17 04:20 Albumin/Globulin Ratio 1.1 (1.0-2.1) 05/08/17 04:20 Triglycerides 79 mg/DL (0-149) D 05/06/17 08:15 Cholesterol 167 mg/dL (0-199) 05/06/17 08:15 LDL Cholesterol Direct 73 mg/dL (0-129) 05/06/17 08:15 HDL Cholesterol 56 MG/DL (30-70) 05/06/17 08:15 Vitamin B12 685 pg/mL (239-931) 05/06/17 08:15 TSH 3rd Generation 1.60 mIU/ML (0.46-4.68) 05/06/17 08:15 Venous Blood Potassium 4.1 mmol/L (3.6-5.2) 05/05/17 16:33 Influenza Typ A,B (EIA) Negative for flu a/b (NEGATIVE) 05/05/17 17:35 - Hospital Course Hospital Course: 77 YO F was admitted for SOB and COPD exacerbation. Was given breathing treatments and IV steroids during statement. Gastroenteritis symptoms have improved, patient is doing well. Breathing has improved. Patient is being given Medro Dose pack and advised to continue home meds and follow up with PMD in 2-3 days. Discharge Exam - Head Exam Head Exam: NORMAL INSPECTION - Eye Exam Eye Exam: Normal appearance - Respiratory Exam Respiratory Exam: Wheezes. absent: Respiratory Distress - Cardiovascular Exam Cardiovascular Exam: REGULAR RHYTHM, +S1, +S2 - GI/Abdominal Exam GI & Abdominal Exam: Normal Bowel Sounds, Soft - Neurological Exam Neurological exam: Alert, Oriented x3 - Skin Skin Exam: Normal Color, Warm Discharge Plan - Discharge Medications Prescriptions: Methylprednisolone [Medrol Dose Pack (21 tabs)] 4 mg PO DAILY #21 mg - Follow Up Plan Condition: GOOD Disposition: HOME/ ROUTINE Instructions: Gastroenteritis (DC), Chronic Lung Disease and Infection Prevention (DC) Additional Instructions: F/U with PMD in 1 week of discharge. Return to Er if symptoms reoccur or worsen, Referrals: Manpreet Austin MD [Staff Provider] -
[2017-05-08 19:31] VITALS: RESP 18
[2017-05-09] MEDS: MethylPREDNISolone 40 mg Vial IVP SCH ×2 (01:02→09:25)
[2017-05-09 08:10] VITALS: BP 152/69; PULSE 67; TEMP 98.2; O2SAT 94
[2017-05-09] MEDS: Pravastatin Sodium 40 MG TAB PO SCH (09:23)
[2017-05-09] MEDS: Pantoprazole 40 mg EC Tab PO SCH (09:23)
[2017-05-09] MEDS: Enoxaparin 30 mg Syringe SC SCH (09:24)
[2017-05-09] MEDS: Insulin Lispro (humaLOG) 100 Units/ml Inj SC SCH (09:27)
== END 2017-05-09 12:07 | disposition home or self-care (01) | DRG 192 ==
LOC: H.ER 14:47 → H.ERHOLD 19:05 → OBSVTOIN 19:05 → H.TEL 05-06 00:01
PROVIDERS: ADMIT Internal Medicine; ATTEND Internal Medicine
DX: J44.1 Chronic obstructive pulmonary disease with (acute) exacerbation (principal); E11.65 Type 2 diabetes mellitus with hyperglycemia; I48.91 Unspecified atrial fibrillation; I50.9 Heart failure, unspecified; R10.13 Epigastric pain; E78.00 Pure hypercholesterolemia, unspecified; I25.10 Atherosclerotic heart disease of native coronary artery without angina pectoris; Z95.5 Presence of coronary angioplasty implant and graft; M81.0 Age-related osteoporosis without current pathological fracture; Z88.5 Allergy status to narcotic agent; F41.9 Anxiety disorder, unspecified; J45.909 Unspecified asthma, uncomplicated; I11.0 Hypertensive heart disease with heart failure; K29.70 Gastritis, unspecified, without bleeding; K52.9 Noninfective gastroenteritis and colitis, unspecified; F32.9 Major depressive disorder, single episode, unspecified; E78.5 Hyperlipidemia, unspecified; M19.90 Unspecified osteoarthritis, unspecified site

== ENCOUNTER 2017-05-21 16:11 | Inpatient (IN) | payer MEDICARE, MEDICAID ==
[2017-05-21 16:11] VITALS: BMI 28.4
[2017-05-21] MEDS ORDERED: Iohexol 240 (50 ml) PO ONE (16:57)
--- NOTE | 2017-05-21 17:06 | ED PDOC ---
HPI: General Adult Time Seen by Provider: 05/21/17 16:29 Chief Complaint (Nursing): Abdominal Pain History Per: Patient Additional Complaint(s): Pt. states for the past 2 days she's had multiple episodes of non-bloody vomiting, non-bloody watery diarrhea with epigastric/RUQ abdominal pain. States she was admitted into hospital in the beginning of the month for a cough and diarrhea. Reports no vomiting at that time. Pt. also reports feeling weak. Denies chest pain, SOB, melena, hematochezia, BRBPR, fever, sick contacts, recent travel, hematemesis, fall, trauma to abdomen. Past Medical History Reviewed: Historical Data, Nursing Documentation, Vital Signs Vital Signs: Last Vital Signs Temp 97.3 F L 05/21/17 16:15 Pulse 72 05/21/17 20:05 Resp 16 05/21/17 16:15 BP 131/65 05/21/17 16:15 Pulse Ox 96 05/21/17 20:05 - Medical History PMH: Anemia, Anxiety, Arthritis, Asthma, Atrial Fibrillation, Back Problems ( had recent injury/fall and was hospitalized for back pain(no findings)), Bronchitis, CAD, Cardia Arrhythmia, CHF, COPD, Depression, Diabetes (type II), Gastritis, Gall Bladder Disease, Hepatitis (B), HTN, Hypercholesterolemia, Hyperlipidemia, Osteoporosis, Peripheral Edema, Pneumonia Denies: HIV, End Stage Renal Disease, Chronic Kidney Disease - Surgical History Surgical History: Cholecystectomy, Coronary Stent, (x 2) - Family History Family History: States: Hypertension - Immunization History Hx Tetanus Toxoid Vaccination: No Hx Influenza Vaccination: Yes Hx Pneumococcal Vaccination: Yes - Home Medications Home Medications: Ambulatory Orders Medication Instructions Recorded Furosemide [Lasix] 40 mg PO DAILY 07/17/16 GlipiZIDE [Glucotrol] 10 mg PO DAILY 07/17/16 Metoprolol Tartrate [Lopressor] 100 mg PO Q12H 07/17/16 Pantoprazole Sodium [Protonix] 40 mg PO DAILY 07/17/16 Pravastatin Sodium [Pravachol] 40 mg PO DAILY 07/17/16 Sucralfate [Carafate Tab] 1 gm PO BID 07/17/16 amLODIPine [Norvasc] 10 mg PO DAILY 07/17/16 Aspirin [Lo-Dose Aspirin EC] 81 mg PO DAILY 05/05/17 Doxepin [Sinequan] 10 mg PO HS 05/05/17 Isosorbide Mononitrate ER [Imdur 30 mg PO DAILY 05/05/17 ER] SITagliptin [Januvia] 100 mg PO DAILY 05/05/17 Acetaminophen [Tylenol 325mg tab] 650 mg PO Q6H PRN 05/21/17 cloNIDine [Catapres] 0.2 mg PO Q8H 05/21/17 - Allergies Allergies/Adverse Reactions: Allergies Allergy/AdvReac Type Severity Reaction Status Date / Time alprazolam [From Xanax] Allergy SWELLING Verified 05/21/17 16:15 hydromorphone HCl Allergy RASH Verified 05/21/17 16:15 [From Dilaudid] zolpidem tartrate Allergy RASH Verified 05/21/17 16:15 [From Ambien] Review of Systems ROS Statement: Except As Marked, All Systems Reviewed And Found Negative Gastrointestinal: Positive for: Nausea, Vomiting, Abdominal Pain, Diarrhea Physical Exam - Physical Exam Appears: Positive for: Well, Non-toxic, No Acute Distress Skin: Positive for: Normal Color, Warm. Negative for: Rash Eye Exam: Positive for: Normal appearance ENT: Positive for: Normal ENT Inspection Neck: Positive for: Normal, Painless ROM Cardiovascular/Chest: Positive for: Regular Rate, Rhythm Respiratory: Positive for: CNT, Normal Breath Sounds Gastrointestinal/Abdominal: Positive for: Normal Exam, Bowel Sounds, Soft, Other (ecchymosis to LLQ and RLQ (as per patient she received anticoagulation injection at these sites and that bruising is from injection)). Negative for: Tenderness - Laboratory Results Result Diagrams: 05/21/17 18:00 05/21/17 18:00 - ECG ECG: Positive for: Interpreted By Me ECG Rhythm: Positive for: Sinus Rhythm. Negative for: ST/T Changes Rate: 72 O2 Sat by Pulse Oximetry: 96 - Radiology X-Ray: Interpreted by Me (CXR) X-Ray Interpretation: No Acute Disease - Progress ED Course And Treament: Labs ordered. CT abd/pelvis w/ IV and PO contrast ordered. Pepcid 20mg IV, zofran 4mg IV ordered. EKG ordered. 1842 Troponin 0.148 ASA 324mg PO chew ordered. Case d/w Dr. Clemons who agrees with care. CT abd/pelvis w/ PO contrast ordered. Pt. placed on cardiac care nurse. Disposition - Clinical Impression Clinical Impression: Elevated troponin, Gastroenteritis - Patient ED Disposition Is Patient to be Admitted: Transfer of Care (Signed out to Afia SHEIKH pending CT results and final disposition.) - Disposition Disposition Time: 20:00 Condition: STABLE Forms: [employer] (Kyrgyz)
[2017-05-21 18:08] LABS: BASO % 0.4 % (0.0-2.0); EOS # 0.1 K/uL (0.0-0.7); EOS % 1.2 % (0.0-4.0); LYMPH # 1.2 K/uL (1.0-4.3); LYMPH % 15.6 % (20.0-40.0); MEAN CELL VOLUME 91.5 fl (81.0-99.0); MEAN CORPUSCULAR HGB CONC 31.8 g/dL (33.0-37.0); MEAN PLATELET VOLUME 8.3 fl (7.2-11.7); MONO # 0.5 K/uL (0.0-0.8); MONO % 6.8 % (0.0-10.0); NEUT # 5.9 K/uL (1.8-7.0); NRBC % 0.1 % (0.0-0.0); RBC 3.79 Mil/uL (3.80-5.20); RED CELL DISTRIBUTION WIDTH 15.4 % (11.5-14.5); WHITE BLOOD COUNT 7.8 K/uL (4.8-10.8)
[2017-05-21 18:25] LABS: ALB/GLOB RATIO 1.1 (1.0-2.1); ALBUMIN 3.3 g/dL (3.5-5.0); CALCIUM 8.2 mg/dL (8.4-10.2)
--- NOTE | 2017-05-21 18:31 | RAD ---
HISTORY: abdominal pain COMPARISON: Chest radiographs 05/05/2017 FINDINGS: LUNGS: No acute infiltrate bilaterally. Limited fibrotic changes again seen at the mid bilateral lung zones in the periphery. PLEURA: No significant pleural effusion identified, no pneumothorax apparent. CARDIOVASCULAR: Patient is rotated toward the right and inspiratory volume is somewhat limited. Mild cardiomegaly is again appreciated. No pulmonary vascular derangement identified. OSSEOUS STRUCTURES: No significant abnormalities. VISUALIZED UPPER ABDOMEN: Normal. OTHER FINDINGS: None. IMPRESSION: Stable cardiomegaly. No acute infiltrate bilaterally. Limited bilateral pulmonary fibrotic changes again noted.
[2017-05-21 18:37] LABS: TROPONIN I 0.148 ng/mL (0.00-0.120)
[2017-05-21] MEDS ORDERED: Iohexol 240 (50 ml) ONE (19:02)
--- NOTE | 2017-05-21 20:34 | ED PDOC ---
- Laboratory Results Result Diagrams: 05/21/17 18:00 05/21/17 18:00 - ECG O2 Sat by Pulse Oximetry: 96 Pulse Ox Interpretation: Normal Medical Decision Making Medical Decision Making: Case was signed out to fiction writer from [facility] Martin pending CT abd and pelvis CT: FINDINGS: Lower thorax: Heart size is normal.There is calcification of the mitral annulus. There is a small hiatal hernia. There is minimal atelectasis and scarring at the lung bases. ABDOMEN: Liver: unremarkable, Gallbladder and bile ducts: unremarkable Pancreas: Pancreas is mildly atrophic. Spleen: unremarkable Adrenals: There is mild adrenal thickening. Kidneys and ureters : unremarkable Stomach and bowel: Stomach is almost empty. Rotation is normal. There is contrast throughout the small bowel. There abnormal small bowel loops in the right lower quadrant with mild wall and fold thickening. There is no obstruction. There is mild terminal ileal wall thickening. Appendix is not visualized.There is no pericecal inflammation. Colon is incompletely distended which limits evaluation. There is scattered diverticulosis. There is cecal diverticulosis. Appendix: See stomach and bowel PELVIS: Bladder: unremarkable, Reproductive: Uterus is absent. There are no adnexal masses. ABDOMEN and PELVIS: Intraperitoneal space: There is no free air or free fluid. Bones/joints: Bony structures are osteopenic with degenerative change. There is compression fracture at L1, unchanged. Soft tissues: There is a small fat containing umbilical hernia. Vasculature: There are vascular calcifications. Lymph nodes: There is no pathologic adenopathy. IMPRESSION: No acute solid visceral abnormality; possible enteritis, no obstruction; diverticulosis without CT findings of diverticulitis. PMD is Dr. Austin, patient admitted to [facility]. Patient is aware of and agrees with admission. Disposition - Clinical Impression Clinical Impression: Elevated troponin, Gastroenteritis, Renal insufficiency - POA Present On Arrival: None - Disposition Disposition: Hospitalized as Observation Patient Disposition Time: 23:49 Condition: FAIR Forms: [employer] (Greenlandic) Results - Lab Results Lab Results: 05/21/17 05/21/17 18:00 18:00 WBC 7.8 RBC 3.79 L Hgb 11.0 L Hct 34.7 MCV 91.5 MCH 29.0 MCHC 31.8 L RDW 15.4 H Plt Count 261 MPV 8.3 Neut % (Auto) 76.0 H Lymph % (Auto) 15.6 L [place] % (Auto) 6.8 Eos % (Auto) 1.2 Baso % (Auto) 0.4 Neut # (Auto) 5.9 Lymph # (Auto) 1.2 [place] # (Auto) 0.5 Eos # (Auto) 0.1 Baso # (Auto) 0.0 Sodium 141 Potassium 4.2 Chloride 105 Carbon Dioxide 23 Anion Gap 17 BUN 25 H Creatinine 2.0 H Est GFR ( Amer) 29 Est GFR (Non-Af Amer) 24 Random Glucose 224 H Calcium 8.2 L Total Bilirubin 0.5 AST 17 ALT 26 Alkaline Phosphatase 65 Troponin I 0.1480 H* Total Protein 6.5 Albumin 3.3 L Globulin 3.2 Albumin/Globulin Ratio 1.1 Lipase 147
--- NOTE | 2017-05-21 21:36 | CT ---
EXAM: CT Abdomen and Pelvis Without Intravenous Contrast EXAM DATE/TIME: 05/21/2017 6:37 PM CLINICAL HISTORY: 77 years old, female; Pain; Abdominal pain; Epigastric; Prior surgery; Surgery date: 6+ months; Surgery type: Cholecystectomy. [id number]; Additional info: Abdominal pain. Sent phy. Doc. TECHNIQUE: Axial computed tomography images of the abdomen and pelvis without intravenous contrast. All CT scans at this facility use one or more dose reduction techniques, viz.: automated exposure control; ma/kV adjustment per patient size (including targeted exams where dose is matched to indication; i.e. head); or iterative reconstruction technique. Coronal and sagittal reformatted images were created and reviewed. COMPARISON: CT - ABD PELVIS PO CONTRAST ONLY 2016-09-11 19:55 FINDINGS: Lower thorax: Heart size is normal.There is calcification of the mitral annulus. There is a small hiatal hernia. There is minimal atelectasis and scarring at the lung bases. ABDOMEN: Liver: unremarkable Gallbladder and bile ducts: unremarkable Pancreas: Pancreas is mildly atrophic. Spleen: unremarkable Adrenals: There is mild adrenal thickening. Kidneys and ureters: unremarkable Stomach and bowel: Stomach is almost empty. Rotation is normal. There is contrast throughout the small bowel. There abnormal small bowel loops in the right lower quadrant with mild wall and fold thickening. There is no obstruction. There is mild terminal ileal wall thickening. Appendix is not visualized.There is no pericecal inflammation. Colon is incompletely distended which limits evaluation. There is scattered diverticulosis. There is cecal diverticulosis. Appendix: See stomach and bowel PELVIS: Bladder: unremarkable Reproductive: Uterus is absent. There are no adnexal masses. ABDOMEN and PELVIS: Intraperitoneal space: There is no free air or free fluid. Bones/joints: Bony structures are osteopenic with degenerative change. There is compression fracture at L1, unchanged.. Soft tissues: There is a small fat containing umbilical hernia. Vasculature: There are vascular calcifications. Lymph nodes: There is no pathologic adenopathy. IMPRESSION: No acute solid visceral abnormality; possible enteritis, no obstruction; diverticulosis without CT findings of diverticulitis Additional nonemergent findings as described above.
[2017-05-22 02:29] LABS: SQUAMOUS EPITHIAL < 1 /hpf (0-5); URINE BACTERIA RARE (<OCC); URINE BILIRUBIN NEGATIVE (NEGATIVE); URINE BLOOD NEGATIVE (NEGATIVE); URINE CLARITY CLOUDY (Clear); URINE COLOR YELLOW (YELLOW); URINE GLUCOSE (UA) 50 mg/dL (Normal); URINE HYALINE CAST 0-2 /hpf (0-2); URINE LEUKOCYTE ESTERASE NEG Leu/uL (Negative); URINE NITRATE NEGATIVE (NEGATIVE); URINE PROTEIN >=500 mg/dL (NEGATIVE); URINE UROBILINOGEN 0.2-1.0 mg/dL (0.2-1.0)
--- NOTE | 2017-05-22 07:56 | CP.PCM.CON ---
History of Present Illness - History of Present Illness History of Present Illness: GI Fellow PGY4 Consult Note This is a 77yF with pmhx of HTN, CAD s/p stent and NSTEMI, DM, CKD, COPD who presents to the ED for complaints of vomiting, abdominal pain and diarrhea. Pt states for the past 3 days she's had multiple episodes of non-bloody vomiting with epigastric/RUQ abdominal pain. She started have loose watery non-bloody watery diarrhea for 2 days and went 6-7 times. States she was admitted into hospital in the beginning of the month for a cough and diarrhea. Reports no vomiting at that time. Pt. also reports feeling weak. Denies chest pain, SOB, melena, hematochezia, BRBPR, fever, sick contacts, recent travel, hematemesis, fall, trauma to abdomen. Pt reports being on abx for COPD exacerbation one month ago. Pt had a CT scan which shows thickening of terminal ileum and Abs US was negative for gallstones. Pt had a EGD/Colonoscopy 03/2016 for Anemia and was found to have gastritis neg HP and diverticulosis with blood and poor prep. ROS: A 12pt ROS was negative except as above Pmhx: As stated in HPI PsHx: Unable to recall SHx: denies tobacco, etoh or drugs FHx: neg for colon cancer Past Patient History - Past Medical History & Family History Past Medical History?: Yes - Past Social History Smoking Status: Never Smoked - CARDIAC Hx Atrial Fibrillation: Yes Hx Cardia Arrhythmia: Yes Hx Congestive Heart Failure: Yes Hx Hypercholesterolemia: Yes Hx Hypertension: Yes Hx Peripheral Edema: Yes - PULMONARY Hx Asthma: Yes Hx Bronchitis: Yes Hx Chronic Obstructive Pulmonary Disease (COPD): Yes Hx Pneumonia: Yes - NEUROLOGICAL Hx Neurological Disorder: No - HEENT Hx HEENT Problems: No - RENAL Hx Chronic Kidney Disease: No - ENDOCRINE/METABOLIC Hx Endocrine Disorders: Yes Hx Diabetes Mellitus Type 2: Yes - HEMATOLOGICAL/ONCOLOGICAL Hx Anemia: Yes Hx Human Immunodeficiency Virus (HIV): No - INTEGUMENTARY Hx Dermatological Problems: No - MUSCULOSKELETAL/RHEUMATOLOGICAL Hx Arthritis: Yes Hx Osteoporosis: Yes - GASTROINTESTINAL Hx Gall Bladder Disease: Yes Hx Gastritis: Yes - GENITOURINARY/GYNECOLOGICAL Hx Genitourinary Disorders: No - PSYCHIATRIC Hx Anxiety: Yes Hx Depression: Yes - SURGICAL HISTORY Hx Cholecystectomy: Yes Hx Coronary Stent: Yes - ANESTHESIA Hx Anesthesia: Yes Hx Anesthesia Reactions: No Hx Malignant Hyperthermia: No Meds Allergies/Adverse Reactions: Allergies Allergy/AdvReac Type Severity Reaction Status Date / Time alprazolam [From Xanax] Allergy SWELLING Verified 05/21/17 16:15 hydromorphone HCl Allergy RASH Verified 05/21/17 16:15 [From Dilaudid] zolpidem tartrate Allergy RASH Verified 05/21/17 16:15 [From Ambien] - Medications Medications: Current Medications Acetaminophen (Tylenol 325mg Tab) 650 mg PO Q6H PRN PRN Reason: Pain, Mild (1-3) Amlodipine Besylate (Norvasc) 10 mg PO DAILY [facility] Aspirin (Ecotrin) 81 mg PO DAILY [facility] Clonidine HCl (Catapres) 0.2 mg PO Q8H [facility] Doxepin HCl (Sinequan) 10 mg PO HS [facility] Furosemide (Lasix) 40 mg PO DAILY [facility] Glipizide (Glucotrol) 10 mg PO DAILY [facility] Insulin Human Regular (Humulin R) 0 units SC ACHS [facility] PRN Reason: Protocol Isosorbide Mononitrate (Imdur Er) 30 mg PO DAILY [facility] Metoprolol Tartrate (Lopressor) 100 mg PO Q12H [facility] Pantoprazole Sodium (Protonix Ec Tab) 40 mg PO DAILY [facility] Pravastatin Sodium (Pravachol) 40 mg PO DAILY [facility] Sitagliptin Phosphate (Januvia) 100 mg PO DAILY [facility] Sucralfate (Carafate Tab) 1 gm PO BID [facility] Physical Exam - Constitutional Appears: Non-toxic, Toxic - Head Exam Head Exam: ATRAUMATIC, NORMAL INSPECTION, NORMOCEPHALIC - Eye Exam Eye Exam: EOMI, Normal appearance - ENT Exam ENT Exam: Mucous Membranes Moist - Respiratory Exam Respiratory Exam: Clear to Auscultation Bilateral, NORMAL BREATHING PATTERN - Cardiovascular Exam Cardiovascular Exam: REGULAR RHYTHM - GI/Abdominal Exam GI & Abdominal Exam: Normal Bowel Sounds, Soft. absent: Distended, Guarding - Rectal Exam Rectal Exam: Deferred - Extremities Exam Extremities exam: Positive for: normal inspection - Back Exam Back exam: NORMAL INSPECTION - Neurological Exam Neurological exam: Alert, Oriented x3 - Psychiatric Exam Psychiatric exam: Normal Affect, Normal Mood - Skin Skin Exam: Dry, Normal Color, Warm Results - Vital Signs Recent Vital Signs: Last Vital Signs Temp 97.8 F 05/22/17 04:53 Pulse 85 02/20/18 04:53 Resp 16 05/22/17 04:53 BP 158/77 H 05/22/17 04:53 Pulse Ox 94 L 05/22/17 04:53 - Labs Result Diagrams: 05/21/17 18:00 05/21/17 18:00 Labs: Laboratory Results - last 24 hr 05/21/17 05/21/17 05/22/17 18:00 18:00 01:57 WBC 7.8 RBC 3.79 L Hgb 11.0 L Hct 34.7 MCV 91.5 MCH 29.0 MCHC 31.8 L RDW 15.4 H Plt Count 261 MPV 8.3 Neut % (Auto) 76.0 H Lymph % (Auto) 15.6 L [place] % (Auto) 6.8 Eos % (Auto) 1.2 Baso % (Auto) 0.4 Neut # (Auto) 5.9 Lymph # (Auto) 1.2 [place] # (Auto) 0.5 Eos # (Auto) 0.1 Baso # (Auto) 0.0 Sodium 141 Potassium 4.2 Chloride 105 Carbon Dioxide 23 Anion Gap 17 BUN 25 H Creatinine 2.0 H Est GFR ( Amer) 29 Est GFR (Non-Af Amer) 24 POC Glucose (mg/dL) Random Glucose 224 H Calcium 8.2 L Total Bilirubin 0.5 AST 17 ALT 26 Alkaline Phosphatase 65 Troponin I 0.1480 H* Total Protein 6.5 Albumin 3.3 L Globulin 3.2 Albumin/Globulin Ratio 1.1 Lipase 147 Urine Color Yellow Urine Clarity Cloudy Urine pH 6.0 Ur Specific [place] 1.008 Urine Protein >=500 Urine Glucose (UA) 50 Urine Ketones Negative Urine Blood Negative Urine Nitrate Negative Urine Bilirubin Negative Urine Urobilinogen 0.2-1.0 Ur Leukocyte Esterase Neg Urine RBC (Auto) 1 Urine Microscopic WBC 1 Ur Squamous Epith Cells < 1 Urine Bacteria Rare Hyaline Casts 0-2 05/22/17 05/22/17 02:05 04:58 WBC RBC Hgb Hct MCV MCH MCHC RDW Plt Count MPV Neut % (Auto) Lymph % (Auto) [place] % (Auto) Eos % (Auto) Baso % (Auto) Neut # (Auto) Lymph # (Auto) [place] # (Auto) Eos # (Auto) Baso # (Auto) Sodium Potassium Chloride Carbon Dioxide Anion Gap BUN Creatinine Est GFR ( Amer) Est GFR (Non-Af Amer) POC Glucose (mg/dL) 162 H Random Glucose Calcium Total Bilirubin AST ALT Alkaline Phosphatase Troponin I 0.1470 H* Total Protein Albumin Globulin Albumin/Globulin Ratio Lipase Urine Color Urine Clarity Urine pH Ur Specific [place] Urine Protein Urine Glucose (UA) Urine Ketones Urine Blood Urine Nitrate Urine Bilirubin Urine Urobilinogen Ur Leukocyte Esterase Urine RBC (Auto) Urine Microscopic WBC Ur Squamous Epith Cells Urine Bacteria Hyaline Casts Assessment & Plan - Assessment and Plan (Free Text) Assessment: This is a 77yF presenting with abdominal pain, vomiting and diarrhea. 1. Gastroenteritis 2. Diarrhea 3. Elevated troponin 4. CKD Plan: -Continue supportive care with pain control and anti-emetics -CT imaging reviewed with small bowel thickening, viral gastroenteritis, no abx with no fever or wbc -Advance diet as tolerated -Diarrhea with recent abx-send cdiff and stool studies -Elevated troponin concerning with hx of CAD and DM, cardio cs recommended, may be due to CKD, 2d cecho 05/2017 with normal EF 45-50% and -PPI daily -Carafate daily -No EGD/Colonoscopy as was done 03/2016 -Will continue to follow closely
[2017-05-22] MEDS: Pravastatin Sodium 40 MG TAB PO SCH (08:26)
[2017-05-22] MEDS: Pantoprazole 40 mg EC Tab PO SCH (08:28)
--- NOTE | 2017-05-22 09:04 | CP.PCM.HP ---
History of Present Illness - History of Present Illness History of Present Illness: 77y/o F with PMhx of HTN, CAD, DM, CKD, COPD presented to the ED overnight with complaints of vomiting, abdominal pain and diarrhea. Pt states for the past 2-3 days she's had some episodes of NBNB vomiting with epigastric/RUQ abdominal pain. Also NBNM watery diarrhea for 2 days and back pain radiating to both legs which she states is chronic and comes and goes. patient was admitted into [facility] this month for a cough and diarrhea. Also reports feeling weak. Denies CP, SOB, melena, hematochezia, fever, hematemesis, fall, trauma to abdomen. had abx for COPD exacerbation one month ago. At the time of exam patient still feels weak but dirrhea, vomiting, abd pain and back pain are resolved. PMD: Dr Austin PMHx as above. SHx: denies etoh, tobacco or drugs Present on Admission - Present on Admission Any Indicators Present on Admission: Yes Review of Systems - Review of Systems All systems: reviewed and no additional remarkable complaints except - Constitutional Constitutional: Fatigue - Gastrointestinal Gastrointestinal: Abdominal Pain, Diarrhea, Vomiting Past Patient History - Past Medical History & Family History Past Medical History?: Yes - Past Social History Smoking Status: Never Smoked Alcohol: None - CARDIAC Hx Atrial Fibrillation: Yes Hx Cardia Arrhythmia: Yes Hx Congestive Heart Failure: Yes Hx Hypercholesterolemia: Yes Hx Hypertension: Yes Hx Peripheral Edema: Yes - PULMONARY Hx Asthma: No Hx Bronchitis: Yes Hx Chronic Obstructive Pulmonary Disease (COPD): Yes Hx Pneumonia: Yes - NEUROLOGICAL Hx Neurological Disorder: No - HEENT Hx HEENT Problems: No - RENAL Hx Chronic Kidney Disease: Yes Hx Dialysis: No - ENDOCRINE/METABOLIC Hx Endocrine Disorders: Yes Hx Diabetes Mellitus Type 2: Yes - HEMATOLOGICAL/ONCOLOGICAL Hx Anemia: Yes Hx Human Immunodeficiency Virus (HIV): No - INTEGUMENTARY Hx Dermatological Problems: No - MUSCULOSKELETAL/RHEUMATOLOGICAL Hx Arthritis: Yes Hx Osteoporosis: Yes - GASTROINTESTINAL Hx Gall Bladder Disease: Yes Hx Gastritis: Yes - GENITOURINARY/GYNECOLOGICAL Hx Genitourinary Disorders: No - PSYCHIATRIC Hx Anxiety: Yes Hx Depression: Yes - SURGICAL HISTORY Hx Cholecystectomy: Yes Hx Coronary Stent: Yes - ANESTHESIA Hx Anesthesia: Yes Hx Anesthesia Reactions: No Hx Malignant Hyperthermia: No Meds Allergies/Adverse Reactions: Allergies Allergy/AdvReac Type Severity Reaction Status Date / Time alprazolam [From Xanax] Allergy SWELLING Verified 05/21/17 16:15 hydromorphone HCl Allergy RASH Verified 05/21/17 16:15 [From Dilaudid] zolpidem tartrate Allergy RASH Verified 05/21/17 16:15 [From Ambien] Physical Exam - Constitutional Appears: Non-toxic, No Acute Distress - Head Exam Head Exam: ATRAUMATIC - Eye Exam Eye Exam: EOMI, PERRL - ENT Exam ENT Exam: Mucous Membranes Moist - Respiratory Exam Respiratory Exam: NORMAL BREATHING PATTERN. absent: Decreased Breath Sounds, Rales, Wheezes - Cardiovascular Exam Cardiovascular Exam: REGULAR RHYTHM, +S1, +S2. absent: Gallop - GI/Abdominal Exam GI & Abdominal Exam: Soft, Tenderness (RUQ mild). absent: Distended, Rebound - Extremities Exam Extremities exam: Positive for: normal capillary refill. Negative for: pedal edema, tenderness - Back Exam Back exam: absent: CVA tenderness (L), CVA tenderness (R) - Neurological Exam Neurological exam: Alert, Oriented x3, Reflexes Normal - Psychiatric Exam Psychiatric exam: Normal Affect, Normal Mood - Skin Skin Exam: Normal Color, Warm Results - Vital Signs Recent Vital Signs: Last Vital Signs Temp 98.1 F 05/22/17 08:34 Pulse 84 05/22/17 08:34 Resp 16 05/22/17 08:34 BP 143/92 H 05/22/17 08:34 Pulse Ox 99 05/22/17 08:34 - Labs Result Diagrams: 05/22/17 08:51 05/21/17 18:00 Labs: Laboratory Results - last 24 hr 05/21/17 05/21/17 05/22/17 18:00 18:00 01:57 WBC 7.8 RBC 3.79 L Hgb 11.0 L Hct 34.7 MCV 91.5 MCH 29.0 MCHC 31.8 L RDW 15.4 H Plt Count 261 MPV 8.3 Neut % (Auto) 76.0 H Lymph % (Auto) 15.6 L [place] % (Auto) 6.8 Eos % (Auto) 1.2 Baso % (Auto) 0.4 Neut # (Auto) 5.9 Lymph # (Auto) 1.2 [place] # (Auto) 0.5 Eos # (Auto) 0.1 Baso # (Auto) 0.0 Sodium 141 Potassium 4.2 Chloride 105 Carbon Dioxide 23 Anion Gap 17 BUN 25 H Creatinine 2.0 H Est GFR ( Amer) 29 Est GFR (Non-Af Amer) 24 POC Glucose (mg/dL) Random Glucose 224 H Calcium 8.2 L Total Bilirubin 0.5 AST 17 ALT 26 Alkaline Phosphatase 65 Troponin I 0.1480 H* Total Protein 6.5 Albumin 3.3 L Globulin 3.2 Albumin/Globulin Ratio 1.1 Lipase 147 Urine Color Yellow Urine Clarity Cloudy Urine pH 6.0 Ur Specific [place] 1.008 Urine Protein >=500 Urine Glucose (UA) 50 Urine Ketones Negative Urine Blood Negative Urine Nitrate Negative Urine Bilirubin Negative Urine Urobilinogen 0.2-1.0 Ur Leukocyte Esterase Neg Urine RBC (Auto) 1 Urine Microscopic WBC 1 Ur Squamous Epith Cells < 1 Urine Bacteria Rare Hyaline Casts 0-2 05/22/17 05/22/17 02:05 04:58 WBC RBC Hgb Hct MCV MCH MCHC RDW Plt Count MPV Neut % (Auto) Lymph % (Auto) [place] % (Auto) Eos % (Auto) Baso % (Auto) Neut # (Auto) Lymph # (Auto) [place] # (Auto) Eos # (Auto) Baso # (Auto) Sodium Potassium Chloride Carbon Dioxide Anion Gap BUN Creatinine Est GFR ( Amer) Est GFR (Non-Af Amer) POC Glucose (mg/dL) 162 H Random Glucose Calcium Total Bilirubin AST ALT Alkaline Phosphatase Troponin I 0.1470 H* Total Protein Albumin Globulin Albumin/Globulin Ratio Lipase Urine Color Urine Clarity Urine pH Ur Specific [place] Urine Protein Urine Glucose (UA) Urine Ketones Urine Blood Urine Nitrate Urine Bilirubin Urine Urobilinogen Ur Leukocyte Esterase Urine RBC (Auto) Urine Microscopic WBC Ur Squamous Epith Cells Urine Bacteria Hyaline Casts Assessment & Plan - Assessment and Plan (Free Text) Assessment: 77 y/o F with multiple co-morbidities admitted for gastroenteritis and elevated troponins Gastroenteritis, acute likely viral GI consult appreciated C/W supportive care F/U stool analysis Elevated troponins w/CAD Poss chronic Denies CP EKG: old ischemic changes: pending report Cardiology consult appreciated c/w home meds CKD IV Elevated BUN/creat Nephro consult appreciated C/w home meds
[2017-05-22 09:06] LABS: HEMOGLOBIN 11.8 g/dL (12.0-16.0); MEAN CELL VOLUME 91.3 fl (81.0-99.0); MEAN CORPUSCULAR HEMOGLOBIN 29.2 pg (27.0-31.0); RBC 4.03 Mil/uL (3.80-5.20); RED CELL DISTRIBUTION WIDTH 14.9 % (11.5-14.5); WHITE BLOOD COUNT 5.6 K/uL (4.8-10.8)
[2017-05-22 09:27] LABS: ALB/GLOB RATIO 1.1 (1.0-2.1); ALBUMIN 3.5 g/dL (3.5-5.0); CALCIUM 8.7 mg/dL (8.4-10.2)
[2017-05-22] MEDS: Insulin Regular 100 units/ml SC SCH ×4 (09:31→22:46)
[2017-05-22 09:48] LABS: TROPONIN I 0.142 ng/mL (0.00-0.120)
--- NOTE | 2017-05-22 11:29 | CP.PCM.CON ---
History of Present Illness - History of Present Illness History of Present Illness: pt is seen and examined, full consult is dictated #[id number] Past Patient History - Past Medical History & Family History Past Medical History?: Yes - Past Social History Smoking Status: Never Smoked Alcohol: None - CARDIAC Hx Atrial Fibrillation: Yes Hx Cardia Arrhythmia: Yes Hx Congestive Heart Failure: Yes Hx Hypercholesterolemia: Yes Hx Hypertension: Yes Hx Peripheral Edema: Yes - PULMONARY Hx Asthma: No Hx Bronchitis: Yes Hx Chronic Obstructive Pulmonary Disease (COPD): Yes Hx Pneumonia: Yes - NEUROLOGICAL Hx Neurological Disorder: No - HEENT Hx HEENT Problems: No - RENAL Hx Chronic Kidney Disease: Yes Hx Dialysis: No - ENDOCRINE/METABOLIC Hx Endocrine Disorders: Yes Hx Diabetes Mellitus Type 2: Yes - HEMATOLOGICAL/ONCOLOGICAL Hx Anemia: Yes Hx Human Immunodeficiency Virus (HIV): No - INTEGUMENTARY Hx Dermatological Problems: No - MUSCULOSKELETAL/RHEUMATOLOGICAL Hx Arthritis: Yes Hx Osteoporosis: Yes - GASTROINTESTINAL Hx Gall Bladder Disease: Yes Hx Gastritis: Yes - GENITOURINARY/GYNECOLOGICAL Hx Genitourinary Disorders: No - PSYCHIATRIC Hx Anxiety: Yes Hx Depression: Yes - SURGICAL HISTORY Hx Cholecystectomy: Yes Hx Coronary Stent: Yes - ANESTHESIA Hx Anesthesia: Yes Hx Anesthesia Reactions: No Hx Malignant Hyperthermia: No Meds Allergies/Adverse Reactions: Allergies Allergy/AdvReac Type Severity Reaction Status Date / Time alprazolam [From Xanax] Allergy SWELLING Verified 05/21/17 16:15 hydromorphone HCl Allergy RASH Verified 05/21/17 16:15 [From Dilaudid] zolpidem tartrate Allergy RASH Verified 05/21/17 16:15 [From Ambien] - Medications Medications: Current Medications Acetaminophen (Tylenol 325mg Tab) 650 mg PO Q6H PRN PRN Reason: Pain, Mild (1-3) Amlodipine Besylate (Norvasc) 10 mg PO DAILY [facility] Last Admin: 05/22/17 08:31 Dose: 10 mg Aspirin (Ecotrin) 81 mg PO DAILY [facility] Last Admin: 05/22/17 08:27 Dose: 81 mg Clonidine HCl (Catapres) 0.2 mg PO Q8H [facility] Last Admin: 05/22/17 08:28 Dose: 0.2 mg Doxepin HCl (Sinequan) 10 mg PO [facility] Furosemide (Lasix) 40 mg PO DAILY [facility] Last Admin: 02/20/18 08:28 Dose: 40 mg Glipizide (Glucotrol) 10 mg PO DAILY [facility] Last Admin: 05/22/17 08:27 Dose: 10 mg Insulin Human Regular (Humulin R) 0 units SC ACHS [facility] PRN Reason: Protocol Last Admin: 05/22/17 09:31 Dose: 1 unit Isosorbide Mononitrate (Imdur Er) 30 mg PO DAILY [facility] Last Admin: 05/22/17 08:28 Dose: 30 mg Metoprolol Tartrate (Lopressor) 100 mg PO Q12H [facility] Last Admin: 05/22/17 08:28 Dose: 100 mg Pantoprazole Sodium (Protonix Ec Tab) 40 mg PO DAILY [facility] Last Admin: 05/22/17 08:28 Dose: 40 mg Pravastatin Sodium (Pravachol) 40 mg PO DAILY [facility] Last Admin: 05/22/17 08:26 Dose: 40 mg Sitagliptin Phosphate (Januvia) 100 mg PO DAILY [facility] Last Admin: 05/22/17 08:26 Dose: 100 mg Sucralfate (Carafate Tab) 1 gm PO BID [facility] Last Admin: 05/22/17 08:27 Dose: 1 gm Results - Vital Signs Recent Vital Signs: Last Vital Signs Temp 98.1 F 05/22/17 08:34 Pulse 84 05/22/17 08:34 Resp 16 05/22/17 08:34 BP 143/92 H 05/22/17 08:34 Pulse Ox 99 05/22/17 08:34 - Labs Result Diagrams: 05/22/17 08:51 05/22/17 08:51 Labs: Laboratory Results - last 24 hr 05/21/17 05/21/17 05/22/17 18:00 18:00 01:57 WBC 7.8 RBC 3.79 L Hgb 11.0 L Hct 34.7 MCV 91.5 MCH 29.0 MCHC 31.8 L RDW 15.4 H Plt Count 261 MPV 8.3 Neut % (Auto) 76.0 H Lymph % (Auto) 15.6 L Clinch % (Auto) 6.8 Eos % (Auto) 1.2 Baso % (Auto) 0.4 Neut # (Auto) 5.9 Lymph # (Auto) 1.2 Clinch # (Auto) 0.5 Eos # (Auto) 0.1 Baso # (Auto) 0.0 Sodium 141 Potassium 4.2 Chloride 105 Carbon Dioxide 23 Anion Gap 17 BUN 25 H Creatinine 2.0 H Est GFR ( Amer) 29 Est GFR (Non-Af Amer) 24 POC Glucose (mg/dL) Random Glucose 224 H Calcium 8.2 L Total Bilirubin 0.5 AST 17 ALT 26 Alkaline Phosphatase 65 Troponin I 0.1480 H* Total Protein 6.5 Albumin 3.3 L Globulin 3.2 Albumin/Globulin Ratio 1.1 Triglycerides Cholesterol LDL Cholesterol Direct HDL Cholesterol Lipase 147 Urine Color Yellow Urine Clarity Cloudy Urine pH 6.0 Ur Specific [place] 1.008 Urine Protein >=500 Urine Glucose (UA) 50 Urine Ketones Negative Urine Blood Negative Urine Nitrate Negative Urine Bilirubin Negative Urine Urobilinogen 0.2-1.0 Ur Leukocyte Esterase Neg Urine RBC (Auto) 1 Urine Microscopic WBC 1 Ur Squamous Epith Cells < 1 Urine Bacteria Rare Hyaline Casts 0-2 05/22/17 05/22/17 05/22/17 02:05 04:58 08:51 WBC 5.6 RBC 4.03 Hgb 11.8 L Hct 36.8 MCV 91.3 MCH 29.2 MCHC 32.0 L RDW 14.9 H Plt Count 240 MPV Neut % (Auto) Lymph % (Auto) Clinch % (Auto) Eos % (Auto) Baso % (Auto) Neut # (Auto) Lymph # (Auto) Clinch # (Auto) Eos # (Auto) Baso # (Auto) Sodium Potassium Chloride Carbon Dioxide Anion Gap BUN Creatinine Est GFR ( Amer) Est GFR (Non-Af Amer) POC Glucose (mg/dL) 162 H Random Glucose Calcium Total Bilirubin AST ALT Alkaline Phosphatase Troponin I 0.1470 H* Total Protein Albumin Globulin Albumin/Globulin Ratio Triglycerides Cholesterol LDL Cholesterol Direct HDL Cholesterol Lipase Urine Color Urine Clarity Urine pH Ur Specific [place] Urine Protein Urine Glucose (UA) Urine Ketones Urine Blood Urine Nitrate Urine Bilirubin Urine Urobilinogen Ur Leukocyte Esterase Urine RBC (Auto) Urine Microscopic WBC Ur Squamous Epith Cells Urine Bacteria Hyaline Casts 05/22/17 08:51 WBC RBC Hgb Hct MCV MCH MCHC RDW Plt Count MPV Neut % (Auto) Lymph % (Auto) Clinch % (Auto) Eos % (Auto) Baso % (Auto) Neut # (Auto) Lymph # (Auto) Clinch # (Auto) Eos # (Auto) Baso # (Auto) Sodium 143 Potassium 3.7 Chloride 107 Carbon Dioxide 25 Anion Gap 15 BUN 20 H Creatinine 1.9 H Est GFR ( Amer) 31 Est GFR (Non-Af Amer) 26 POC Glucose (mg/dL) Random Glucose 189 H Calcium 8.7 Total Bilirubin 0.5 AST 16 ALT 26 Alkaline Phosphatase 77 Troponin I 0.1420 H* Total Protein 6.9 Albumin 3.5 Globulin 3.4 Albumin/Globulin Ratio 1.1 Triglycerides 128 D Cholesterol 212 H LDL Cholesterol Direct 94 HDL Cholesterol 76 H Lipase Urine Color Urine Clarity Urine pH Ur Specific [place] Urine Protein Urine Glucose (UA) Urine Ketones Urine Blood Urine Nitrate Urine Bilirubin Urine Urobilinogen Ur Leukocyte Esterase Urine RBC (Auto) Urine Microscopic WBC Ur Squamous Epith Cells Urine Bacteria Hyaline Casts
[2017-05-22] MEDS ORDERED: Sodium Chloride 0.9% 1,000 ML IV SCH (12:18)
[2017-05-22] MEDS ORDERED: Insulin Regular 100 units/ml ONE (12:50)
[2017-05-22] MEDS: Sodium Chloride 0.9% 1,000 ML IV SCH (16:09)
--- NOTE | 2017-05-22 18:33 | CP.PCM.CON ---
History of Present Illness - History of Present Illness History of Present Illness: I was asked to evaluate patient by Dr Austin. Patient is a 77 year old female with PMH HTN, hypercholesterolemia who presents with abdominal pain. The patient's symptoms began one week ago, when she developed crampy discomfort in the lower abdomen. She has had nausea and diarrhea. She presented to [facility] and was found to have elevated troponin. There is renal insufficiency. She denies chest pain. Review of Systems - Constitutional Constitutional: absent: As Per HPI, Anorexia, Chills, Daytime Sleepiness, Excessive Sweating, Fatigue, Fever, Frequent Falls, Headache, Increased Appetite , Lethargy, Malaise, Night Sweats, Snoring, Sleep Apnea, Weight Gain, Weight Loss, Weakness, Other - EENT Eyes: absent: As Per HPI, Blind Spots, Blurred Vision, Change in Vision, Decreased Night Vision, Diplopia, Discharge, Dry Eye, Exophthalmos, Floaters, Irritation, Itchy Eyes, Loss of Peripheral Vision, Pain, Photophobia, Requires Corrective Lenses, Sees Flashes, Spots in Vision, Tunnel Vision, Other Visual Disturbances, Loss of Vision, Other Nose/Mouth/Throat: absent: As Per HPI, Epistaxis, Nasal Congestion, Nasal Discharge, Nasal Obstruction, Nasal Trauma, Nose Pain, Post Nasal Drip, Sinus Pain, Sinus Pressure, Bleeding Gums, Change in Voice, Dental Pain, Dry Mouth, Dysphagia, Halitosis, Hoarsness, Lip Swelling, Mouth Lesions, Mouth Pain, Odynophagia, Sore Throat, Throat Swelling, Tongue Swelling, Facial Pain, Neck Pain, Neck Mass, Other - Cardiovascular Cardiovascular: absent: As Per HPI, Acrocyanosis, Chest Pain, Chest Pain at Rest , Chest Pain with Activity, Claudication, Diaphoresis, Dyspnea, Dyspnea on Exertion, Edema, Irregular Heart Rhythm, Pain Radiating to Arm/Neck/Jaw, Leg Edema, Leg Ulcers, Lightheadedness, Orthopnea, Palpitations, Paroxysmal Nocturnal Dyspnea, Pedal Edema, Radiating Pain, Rapid Heart Rate, Slow Heart Rate, Syncope, Other - Respiratory Respiratory: absent: As Per HPI, Cough, Dyspnea, Hemoptysis, Dyspnea on Exertion , Wheezing, Snoring, Stridor, Pain on Inspiration, Chest Congestion, Excessive Mucous Production, Change in Mucous Color, Pain with Coughing, Other - Gastrointestinal Gastrointestinal: Abdominal Pain, Cramping, Diarrhea - Genitourinary Genitourinary: absent: As Per HPI, Change in Urinary Stream, Difficulty Urinating, Dysuria, Flank Pain, Hematuria, Pyuria, Nocturia, Urinary Incontinence, Urinary Frequency, Urinary Hesitance, Urinary Urgency, Voiding Freq/Small Amts, Freq UTI, Hx Renal/Bladder Calculi, Hx /Renal Surgery, Bladder Distension, Other - Musculoskeletal Musculoskeletal: absent: As Per HPI, Abnormal Gait, Arthralgias, Atrophy, Back Pain, Deformity, Joint Swelling, Limited Range of Motion, Loss of Height, Muscle Cramps, Muscle Weakness, Myalgias, Neck Pain, Numbness, Radiating Pain into Limb, Stiffness, Tingling, Other - Integumentary Integumentary: absent: As Per HPI, Acne, Alopecia, Bleeding Lesions, Change in Hair, Change in Nails, Change in Pigmentation, Changing Lesions, Dry Skin, Erythema, Furuncle, Hirsutism, Lesions, New Lesions, Non-Healing Lesions, Photosensitivity, Pruritus, Rash, Skin Pain, Skin Ulcer, Sores, Striae, Swelling , Unusual Bruising, Wounds, Jaundice, Other - Neurological Neurological: absent: As Per HPI, Abnormal Gait, Abnormal Hearing, Abnormal Movements, Abnormal Speech, Behavioral Changes, Burning Sensations, Confusion, Convulsions, Disequilibrium, Dizziness, Numbness, Focal Weakness, Frequent Falls , Headaches, Lack of Coordination, Loss of Vision, Memory Loss, Paresthesias, Radicular Pain, Restless Legs, Sensory Deficit, Syncope, Tingling, Tremor, Vertigo, Weakness, Other Visual Disturbances, Other - Psychiatric Psychiatric: absent: As Per HPI, Abnormal Sleep Pattern, Anhedonia, Anxiety, Auditory Hallucinations, Behavioral Changes, Change in Appetite, Change in Libido, Confusion, Depression, Difficulty Concentrating, Hallucinations, Homicidal Ideation, Hopelessness, Irritability, Memory Loss, Mood Swings, Panic Attacks, Paranoia, Suicidal Ideation, Visual Hallucinations, Tactile Hallucinations, Other - Endocrine Endocrine: absent: As Per HPI, Change in Body Appearance, Change in Libido, Cold Intolorance, Deepening of Voice, Excessive Sweating, Fatigue, Flushing, Heat Intolorance, Increase in Ring/Shoe/Hat Size, Palpitations, Polydipsia, Polyphagia, Polyuria, Other - Hematologic/Lymphatic Hematologic: absent: As Per HPI, Easy Bleeding, Easy Bruising, Lymphadenopathy, Other Past Patient History - Past Medical History & Family History Past Medical History?: Yes - Past Social History Smoking Status: Never Smoked - CARDIAC Hx Cardiac Disorders: Yes - PULMONARY Hx Respiratory Disorders: Yes Hx Asthma: No Hx Bronchitis: Yes Hx Chronic Obstructive Pulmonary Disease (COPD): Yes Hx Pneumonia: Yes - NEUROLOGICAL Hx Neurological Disorder: No - HEENT Hx HEENT Problems: No - RENAL Hx Chronic Kidney Disease: Yes - ENDOCRINE/METABOLIC Hx Endocrine Disorders: Yes - HEMATOLOGICAL/ONCOLOGICAL Hx Blood Disorders: Yes Hx Anemia: Yes Hx Human Immunodeficiency Virus (HIV): No - INTEGUMENTARY Hx Dermatological Problems: No - MUSCULOSKELETAL/RHEUMATOLOGICAL Hx Musculoskeletal Disorders: Yes Hx Arthritis: Yes Hx Falls: No Hx Osteoporosis: Yes Hx Unsteady Gait: Yes - GASTROINTESTINAL Hx Gastrointestinal Disorders: Yes Hx Gall Bladder Disease: Yes Hx Gastritis: Yes Hx Vomiting: Yes - GENITOURINARY/GYNECOLOGICAL Hx Genitourinary Disorders: No - PSYCHIATRIC Hx Anxiety: Yes Hx Depression: Yes Hx Substance Use: No - SURGICAL HISTORY Hx Surgeries: Yes Hx Cholecystectomy: Yes Hx Coronary Stent: Yes - ANESTHESIA Hx Anesthesia: Yes Hx Anesthesia Reactions: No Hx Malignant Hyperthermia: No Meds Allergies/Adverse Reactions: Allergies Allergy/AdvReac Type Severity Reaction Status Date / Time alprazolam [From Xanax] Allergy SWELLING Verified 05/21/17 16:15 hydromorphone HCl Allergy RASH Verified 05/21/17 16:15 [From Dilaudid] zolpidem tartrate Allergy RASH Verified 05/21/17 16:15 [From Ambien] - Medications Medications: Current Medications Acetaminophen (Tylenol 325mg Tab) 650 mg PO Q6H PRN PRN Reason: Pain, Mild (1-3) Amlodipine Besylate (Norvasc) 10 mg PO DAILY [facility] Aspirin (Ecotrin) 81 mg PO DAILY [facility] Last Admin: 05/22/17 08:27 Dose: 81 mg Clonidine HCl (Catapres) 0.2 mg PO Q8H [facility] Last Admin: 05/22/17 18:10 Dose: Not Given Doxepin HCl (Sinequan) 10 mg PO HS [facility] Enoxaparin Sodium (Lovenox) 30 mg SC DAILY [facility] PRN Reason: Protocol Furosemide (Lasix) 40 mg PO DAILY [facility] Last Admin: 05/22/17 08:28 Dose: 40 mg Glipizide (Glucotrol) 10 mg PO DAILY [facility] Last Admin: 05/22/17 08:27 Dose: 10 mg Sodium Chloride (Sodium Chloride 0.9%) 1,000 mls @ 80 mls/hr IV .[id number] [facility] Stop: 05/23/17 15:08 Last Admin: 05/22/17 16:09 Dose: 80 mls/hr Insulin Human Regular (Humulin R) 0 units SC ACHS [facility] PRN Reason: Protocol Last Admin: 05/22/17 18:11 Dose: Not Given Isosorbide Mononitrate (Imdur Er) 30 mg PO DAILY [facility] Last Admin: 05/22/17 08:28 Dose: 30 mg Metoprolol Tartrate (Lopressor) 100 mg PO Q12H [facility] Last Admin: 05/22/17 18:11 Dose: Not Given Pantoprazole Sodium (Protonix Ec Tab) 40 mg PO DAILY [facility] Last Admin: 05/22/17 08:28 Dose: 40 mg Pravastatin Sodium (Pravachol) 40 mg PO DAILY [facility] Last Admin: 05/22/17 08:26 Dose: 40 mg Sitagliptin Phosphate (Januvia) 100 mg PO DAILY [facility] Last Admin: 05/22/17 08:26 Dose: 100 mg Sucralfate (Carafate Tab) 1 gm PO BID [facility] Last Admin: 05/22/17 18:08 Dose: 1 gm Physical Exam - Constitutional Appears: Non-toxic - Head Exam Head Exam: NORMAL INSPECTION - Eye Exam Eye Exam: Normal appearance - ENT Exam ENT Exam: Mucous Membranes Moist - Neck Exam Neck exam: Positive for: Full Rom - Respiratory Exam Respiratory Exam: NORMAL BREATHING PATTERN - Cardiovascular Exam Cardiovascular Exam: REGULAR RHYTHM - GI/Abdominal Exam GI & Abdominal Exam: Normal Bowel Sounds - Rectal Exam Rectal Exam: Deferred - Extremities Exam Extremities exam: Negative for: pedal edema - Back Exam Back exam: NORMAL INSPECTION - Neurological Exam Neurological exam: Alert, Oriented x3 - Psychiatric Exam Psychiatric exam: Normal Affect - Skin Skin Exam: Normal Color Results - Vital Signs Recent Vital Signs: Last Vital Signs Temp 97.9 F 05/22/17 11:57 Pulse 69 05/22/17 18:11 Resp 16 05/22/17 16:10 BP 92/58 L 05/22/17 18:11 Pulse Ox 98 05/22/17 15:07 - Labs Result Diagrams: 05/22/17 08:51 05/22/17 08:51 Labs: Laboratory Results - last 24 hr 05/21/17 05/22/17 05/22/17 18:00 01:57 02:05 WBC RBC Hgb Hct MCV MCH MCHC RDW Plt Count Sodium Potassium Chloride Carbon Dioxide Anion Gap BUN Creatinine Est GFR ( Amer) Est GFR (Non-Af Amer) POC Glucose (mg/dL) Random Glucose Calcium Total Bilirubin AST ALT Alkaline Phosphatase Troponin I 0.1480 H* 0.1470 H* Total Protein Albumin Globulin Albumin/Globulin Ratio Triglycerides Cholesterol LDL Cholesterol Direct HDL Cholesterol Urine Color Yellow Urine Clarity Cloudy Urine pH 6.0 Ur Specific [place] 1.008 Urine Protein >=500 Urine Glucose (UA) 50 Urine Ketones Negative Urine Blood Negative Urine Nitrate Negative Urine Bilirubin Negative Urine Urobilinogen 0.2-1.0 Ur Leukocyte Esterase Neg Urine RBC (Auto) 1 Urine Microscopic WBC 1 Ur Squamous Epith Cells < 1 Urine Bacteria Rare Hyaline Casts 0-2 Urine Osmolality Ur Random Creatinine Ur Random Sodium Ur Random Potassium C. difficile Ag & Toxin 05/22/17 05/22/17 05/22/17 04:58 08:51 08:51 WBC 5.6 RBC 4.03 Hgb 11.8 L Hct 36.8 MCV 91.3 MCH 29.2 MCHC 32.0 L RDW 14.9 H Plt Count 240 Sodium 143 Potassium 3.7 Chloride 107 Carbon Dioxide 25 Anion Gap 15 BUN 20 H Creatinine 1.9 H Est GFR ( Amer) 31 Est GFR (Non-Af Amer) 26 POC Glucose (mg/dL) 162 H Random Glucose 189 H Calcium 8.7 Total Bilirubin 0.5 AST 16 ALT 26 Alkaline Phosphatase 77 Troponin I 0.1420 H* Total Protein 6.9 Albumin 3.5 Globulin 3.4 Albumin/Globulin Ratio 1.1 Triglycerides 128 D Cholesterol 212 H LDL Cholesterol Direct 94 HDL Cholesterol 76 H Urine Color Urine Clarity Urine pH Ur Specific [place] Urine Protein Urine Glucose (UA) Urine Ketones Urine Blood Urine Nitrate Urine Bilirubin Urine Urobilinogen Ur Leukocyte Esterase Urine RBC (Auto) Urine Microscopic WBC Ur Squamous Epith Cells Urine Bacteria Hyaline Casts Urine Osmolality Ur Random Creatinine Ur Random Sodium Ur Random Potassium C. difficile Ag & Toxin 05/22/17 05/22/17 05/22/17 11:46 13:14 13:14 WBC RBC Hgb Hct MCV MCH MCHC RDW Plt Count Sodium Potassium Chloride Carbon Dioxide Anion Gap BUN Creatinine Est GFR ( Amer) Est GFR (Non-Af Amer) POC Glucose (mg/dL) 202 H Random Glucose Calcium Total Bilirubin AST ALT Alkaline Phosphatase Troponin I Total Protein Albumin Globulin Albumin/Globulin Ratio Triglycerides Cholesterol LDL Cholesterol Direct HDL Cholesterol Urine Color Urine Clarity Urine pH Ur Specific [place] Urine Protein Urine Glucose (UA) Urine Ketones Urine Blood Urine Nitrate Urine Bilirubin Urine Urobilinogen Ur Leukocyte Esterase Urine RBC (Auto) Urine Microscopic WBC Ur Squamous Epith Cells Urine Bacteria Hyaline Casts Urine Osmolality 219 L Ur Random Creatinine 23.9 Ur Random Sodium 66 Ur Random Potassium 15.0 C. difficile Ag & Toxin 05/22/17 13:50 WBC RBC Hgb Hct MCV MCH MCHC RDW Plt Count Sodium Potassium Chloride Carbon Dioxide Anion Gap BUN Creatinine Est GFR ( Amer) Est GFR (Non-Af Amer) POC Glucose (mg/dL) Random Glucose Calcium Total Bilirubin AST ALT Alkaline Phosphatase Troponin I Total Protein Albumin Globulin Albumin/Globulin Ratio Triglycerides Cholesterol LDL Cholesterol Direct HDL Cholesterol Urine Color Urine Clarity Urine pH Ur Specific [place] Urine Protein Urine Glucose (UA) Urine Ketones Urine Blood Urine Nitrate Urine Bilirubin Urine Urobilinogen Ur Leukocyte Esterase Urine RBC (Auto) Urine Microscopic WBC Ur Squamous Epith Cells Urine Bacteria Hyaline Casts Urine Osmolality Ur Random Creatinine Ur Random Sodium Ur Random Potassium C. difficile Ag & Toxin Negative - EKG Data EKG Interpreted by: Myself EKG shows normal: Sinus rhythm Assessment & Plan (1) Elevated troponin Assessment and Plan: unclear etiology in the setting of renal insufficiency. The patient denies chest pain or dyspnea. recommend medical therapy and management of GI condition. Blood pressure control. will risk stratify with a stress test as an outpatient. recommend ASA 81 mg daily. Status: Acute (2) Hypertension Assessment and Plan: blood pressure control Status: Chronic Priority: Medium
--- NOTE | 2017-05-23 03:07 | CARD ---
APPROVED REPORT EKG Measurement Heart [id number] <Conclusion> Normal sinus rhythm Anterolateral infarct, age undetermined Abnormal ECG
[2017-05-23] MEDS: Sodium Chloride 0.9% 1,000 ML IV SCH (05:16)
[2017-05-23 05:30] LABS: HEMOGLOBIN 9.8 g/dL (12.0-16.0); MEAN CELL VOLUME 92.1 fl (81.0-99.0); MEAN CORPUSCULAR HEMOGLOBIN 29.7 pg (27.0-31.0); MEAN CORPUSCULAR HGB CONC 32.2 g/dL (33.0-37.0); RBC 3.29 Mil/uL (3.80-5.20); RED CELL DISTRIBUTION WIDTH 14.6 % (11.5-14.5); WHITE BLOOD COUNT 5.7 K/uL (4.8-10.8)
[2017-05-23 06:21] LABS: ALBUMIN 2.8 g/dL (3.5-5.0); CALCIUM 7.4 mg/dL (8.4-10.2)
[2017-05-23] MEDS: Insulin Regular 100 units/ml SC SCH ×4 (08:56→22:04)
[2017-05-23] MEDS: Enoxaparin 30 mg Syringe SC SCH (09:00)
[2017-05-23] MEDS: Pravastatin Sodium 40 MG TAB PO SCH (09:01)
[2017-05-23] MEDS: Pantoprazole 40 mg EC Tab PO SCH (09:01)
[2017-05-23] MEDS ORDERED: Influenza Vaccine(65YR UP)/PF 180 MCG/0.5 ML SYRINGE IM ONE (11:15)
--- NOTE | 2017-05-23 11:32 | CP.PCM.PN ---
Subjective - Date & Time of Evaluation Date of Evaluation: 05/23/17 Time of Evaluation: 07:10 - Subjective Subjective: Stable but still c/o RUQ pain. No other complains. No acute events overnight. Objective - Vital Signs/Intake and Output Vital Signs (last 24 hours): Temp Pulse Resp BP Pulse Ox 97.7 F 72 20 153/71 H 95 05/23/17 08:00 05/23/17 09:01 05/23/17 08:00 05/23/17 09:01 05/23/17 08:00 Intake and Output: 05/23/17 05/23/17 06:59 18:59 Intake Total 2360 Balance 2360 - Medications Medications: Current Medications Acetaminophen (Tylenol 325mg Tab) 650 mg PO Q6H PRN PRN Reason: Pain, Mild (1-3) Amlodipine Besylate (Norvasc) 10 mg PO DAILY [facility] Last Admin: 05/23/17 09:01 Dose: 10 mg Aspirin (Ecotrin) 81 mg PO DAILY [facility] Last Admin: 05/23/17 08:56 Dose: 81 mg Clonidine HCl (Catapres) 0.2 mg PO Q8H [facility] Last Admin: 05/23/17 08:55 Dose: 0.2 mg Doxepin HCl (Sinequan) 10 mg PO HS [facility] Last Admin: 05/22/17 21:31 Dose: 10 mg Enoxaparin Sodium (Lovenox) 30 mg SC DAILY [facility] PRN Reason: Protocol Last Admin: 05/23/17 09:00 Dose: 30 mg Furosemide (Lasix) 40 mg PO DAILY [facility] Last Admin: 05/23/17 09:00 Dose: 40 mg Glipizide (Glucotrol) 10 mg PO DAILY [facility] Last Admin: 05/23/17 08:56 Dose: 10 mg Sodium Chloride (Sodium Chloride 0.9%) 1,000 mls @ 80 mls/hr IV .[id number] [facility] Stop: 05/23/17 15:08 Last Admin: 05/23/17 05:16 Dose: 80 mls/hr Insulin Human Regular (Humulin R) 0 units SC ACHS [facility] PRN Reason: Protocol Last Admin: 05/23/17 08:56 Dose: 2 unit Isosorbide Mononitrate (Imdur Er) 30 mg PO DAILY [facility] Last Admin: 05/23/17 08:56 Dose: 30 mg Metoprolol Tartrate (Lopressor) 100 mg PO Q12H [facility] Last Admin: 05/23/17 05:19 Dose: Not Given Ondansetron HCl (Zofran Inj) 4 mg IVP Q4 PRN PRN Reason: Nausea/Vomiting Pantoprazole Sodium (Protonix Ec Tab) 40 mg PO DAILY [facility] Last Admin: 05/23/17 09:01 Dose: 40 mg Pravastatin Sodium (Pravachol) 40 mg PO DAILY [facility] Last Admin: 05/23/17 09:01 Dose: 40 mg Sitagliptin Phosphate (Januvia) 100 mg PO DAILY [facility] Last Admin: 05/23/17 08:57 Dose: 100 mg Sucralfate (Carafate Tab) 1 gm PO BID [facility] Last Admin: 05/23/17 08:55 Dose: 1 gm - Labs Labs: 05/23/17 04:20 05/23/17 04:20 - Constitutional Appears: Non-toxic, No Acute Distress - Eye Exam Eye Exam: EOMI, PERRL - ENT Exam ENT Exam: Mucous Membranes Moist - Respiratory Exam Respiratory Exam: Clear to Ausculation Bilateral, NORMAL BREATHING PATTERN. absent: Rales - Cardiovascular Exam Cardiovascular Exam: REGULAR RHYTHM, +S1, +S2 - GI/Abdominal Exam GI & Abdominal Exam: Soft, Tenderness (RUQ), Normal Bowel Sounds. absent: Rebound - Neurological Exam Neurological Exam: Alert, Awake, Oriented x3 - Skin Skin Exam: Normal Color, Warm Assessment and Plan - Assessment and Plan (Free Text) Assessment: 77 y/o F with multiple co-morbidities admitted for gastroenteritis and elevated troponins Gastroenteritis, acute WBC in stools elevated Still c/o RUQ pain Abd US ordered GI consult appreciated Stool for O&P neg Will consider starting patient on Abx Elevated troponins w/CAD Likely chronic/CKD related Denies CP EKG: old ischemic changes Cardiology consult appreciated c/w home meds CKD IV Elevated BUN/creat improving Poss due to dehydration Nephro consult appreciated C/w home meds
--- NOTE | 2017-05-23 14:50 | CON ---
DATE: 05/22/2017 RENAL CONSULTATION LOCATION: In the emergency room, [facility]. REASON FOR RENAL CONSULTATION: Increased BUN and creatinine and hypotension. HISTORY OF PRESENT ILLNESS: Mrs. Liang is a 77 years old elderly female with a past medical history significant for multiple medical problems including anemia, anxiety, arthritis, asthma, atrial fibrillation, chronic back pain, bronchitis, coronary artery disease, CHF, COPD, depression, diabetes, hypertension, hyperlipidemia, osteoporosis and history of pneumonia. Multiple admissions to [facility], was presented to the emergency room initially with chief complaints of nausea, vomiting, diarrhea for 2 days. As per the patient, she had multiple diarrheas and multiple vomiting, mostly watery. Also complains of mild abdominal discomfort. During my examination, the patient was found to be hypotensive, blood pressure systolic about 65, heart rate varies from 95 to 150. The patient denies any shortness of breath. Does complain of palpitation. No chest pain. Denies any fever, cough. Denies any shortness of breath. The patient has complaints of weakness and dizziness. The patient was started on IV fluids normal saline 1 L bolus and subsequently advised to continue IV fluids normal saline at 70 to 80 mL/hour. PAST MEDICAL HISTORY: Longstanding hypertension, diabetes, CHF, COPD, cardiac arrhythmias, AFib, asthma, arthritis, anxiety, anemia and chronic kidney disease. PAST SURGICAL HISTORY: Status post cholecystectomy, coronary artery disease status post coronary stent and x2. ALLERGIES: ALLERGIC TO ALPRAZOLAM, HYDROMORPHONE AND ZOLPIDEM. SOCIAL HISTORY: Denies any smoking, alcohol or drugs at this time. The patient claims that she received influenza vaccine and also received pneumococcal vaccine. FAMILY HISTORY: Not significant. She has a very supportive family. HOME MEDICATIONS: Include as follows; Tylenol, clonidine 0.2 mg p.o. q. 8 hours, amlodipine 10 mg daily, Carafate 1 gm p.o. b.i.d., Januvia 100 mg daily, Pravachol 40 mg daily, Protonix 40 mg daily, metoprolol 100 mg p.o. q. 12 hours, Imdur 30 mg daily, glipizide 10 mg daily, Lasix 40 mg p.o. daily, doxepin 10 mg at bedtime and aspirin 81 mg daily. CURRENT MEDICATIONS: In the hospital include Carafate 1 gm b.i.d., clonidine 0.2 mg p.o. q. 8 hours, aspirin 81 mg daily, glipizide 10 mg, Humulin R for sliding scale, Imdur 30 mg, Januvia 100 mg, Lasix 40 mg daily, metoprolol 100 mg p.o. q. 12 hours, Lovenox 30 mg subcu daily, amlodipine 10 mg daily, Pravachol 40 mg p.o. daily, Protonix, doxepin, IV fluids normal saline at 80 mL/hour and Tylenol. REVIEW OF SYSTEMS: Significant for nausea, vomiting, diarrhea, hypotension and weakness. All other review of systems are reviewed and are negative. PHYSICAL EXAMINATION: VITAL SIGNS: As follows; blood pressure in the emergency room 65/52, pulse is about 95 to 152. During my examination, blood pressure is 80/44 and pulse 95 to 150 and respirations 16, temperature 97.9, saturation 97-98%. Height 5 feet 2 inches and weight is 131 pounds. GENERAL: Mrs. Liang is a 77 years old elderly female, moderately built, moderately nourished, not in acute distress. HEENT: Pupils normal, reactive to light and accommodation. Conjunctivae pink. Sclerae anicteric. Tongue is moist. Trachea is midline. No thyroid enlargement. LUNGS: Symmetric on both sides. Bilateral breath sounds present. Clear on auscultation. CVS: [place] at the fifth intercostal space, midclavicular line. S1 and S2 audible. Tachycardic. Irregularly irregular. ABDOMEN: Normal in appearance, soft, tympanic. No guarding, no rigidity. No hepatosplenomegaly. BUSINESS MGR: The patient is alert, awake, oriented x2-3. Sensory and motor system is within normal limits. EXTREMITIES: No cyanosis, no clubbing, no edema. SKIN: Turgor is slightly poor. INTAKE AND OUTPUT: Intake is 2360 and output is not able to measure. LABORATORY DATA: Include as follows as of 05/21/2017; WBC 7.8, hemoglobin 11, hematocrit 34.7, platelets 261. Sodium 141, potassium 4.2, chloride 105, CO2 23, BUN 25, creatinine 2.0, glucose 224, calcium 8.7, total bili 0.5, AST 17, ALT 26, alkaline phosphatase 65 and troponin 0.14, second one 0.147 and third one 0.142, total protein 6.5, albumin is 3.3, total cholesterol as of 05/22/2017 212, triglycerides 128, LDL 94, HDL is 76, lipase is 146. Urinalysis, yellow, cloudy, pH 6, specific gravity 1.008, protein more than 500, glucose is 50, ketones negative, blood negative, nitrites negative, leukocyte esterase negative, urobilinogen 0.2 to 1.0, wbc 1, rbc 1, casts 0 to 2. The other laboratory data stool for C. diff toxin is negative. Stool for leukocytes is positive. Urine osmolality 219, urine creatinine is 23.9, and urine sodium is 66 and urine potassium is 15.0. As of 05/22/2017; WBC 5.6, hemoglobin 11.8, hematocrit is 36.8, platelets 240. As of 05/21/2017, x-ray of the chest, stable cardiomegaly, no a acute infiltrate bilaterally, limited bilateral pulmonary fibrotic changes again noted. CT of the abdomen and pelvis as of 05/21/2017; no acute solid visceral abnormality, possible enteritis, no obstruction or diverticulosis without CT finding of diverticulitis. Kidneys and ureters are unremarkable, adrenals there is mild adrenal thickening. ASSESSMENT: In summary, Mrs. Liang is a 77 years old elderly female with a history of diabetes, hypertension, congestive heart failure, coronary artery disease, arthritis, osteoporosis, anxiety, depression, chronic kidney disease was admitted with nausea, vomiting, diarrhea, abdominal discomfort for about 2 days. The patient was hypotensive this afternoon, started on IV fluids. 1. Renal failure, acute on chronic kidney disease stage III versus progression of the chronic kidney disease. 2. Hypotension secondary to intravascular volume depletion. 3. Dehydration. 4. Atrial fibrillation, the patient was given bolus normal saline 1 L then advised to continue IV fluids, normal saline at 70-80 mL/hour. PLAN: Hold blood pressure medicine for systolic blood pressure less than 120. Continue monitor I and Os and followup stool culture reported. We will follow with you. Thank you for allowing me to participate in your patient's care. Sonido Miguel MD
--- NOTE | 2017-05-23 16:48 | US ---
HISTORY: RUQ pain COMPARISON: None. TECHNIQUE: Sonographic evaluation of the right upper quadrant of the abdomen. FINDINGS: LIVER: Measures 16.4 cm in length. Normal echogenicity of the liver parenchyma. No mass. No intrahepatic bile duct dilatation. GALLBLADDER: Unremarkable. No gallstones. COMMON BILE DUCT: Measures 8.7 mm. No stones. No dilatation. PANCREAS: The tail of the pancreas is obscured by overlying bowel gas with remainder unremarkable. RIGHT KIDNEY: Measures 11.3 cm in length. Normal echogenicity. No calculus, mass, or hydronephrosis. AORTA: No aneurysmal dilatation. IVC: Unremarkable. OTHER FINDINGS: None . IMPRESSION: [id number] common bile duct dilatation is appreciated at its proximal visualized segment measuring 8.7 mm without choledocholithiasis appreciable. Consider follow-up MRCP. The gallbladder is distended but otherwise unremarkable. Partial imaging of the pancreas.
--- NOTE | 2017-05-23 19:09 | CP.PCM.CON ---
History of Present Illness - History of Present Illness History of Present Illness: 77 yo female with DM, CKD, CAD, and COPD admitted 2 days ago with abdominal pain and diarrhea. Also feels weak. Took antibiotics one month ago. Diarrhea has persisted and is worst when she eats. H/o cholecystectomy in the past. Stool for C. diff negative so far. Stool is reported by nurse to be foul smelling. Review of Systems - Constitutional Constitutional: absent: Chills - EENT Eyes: absent: Blurred Vision Ears: absent: Decreased Hearing Nose/Mouth/Throat: absent: Epistaxis - Cardiovascular Cardiovascular: absent: Chest Pain - Respiratory Respiratory: absent: Cough - Gastrointestinal Gastrointestinal: As Per HPI - Genitourinary Genitourinary: absent: Change in Urinary Stream Past Patient History - Past Medical History & Family History Past Medical History?: Yes - Past Social History Smoking Status: Never Smoked Alcohol: None - CARDIAC Hx Atrial Fibrillation: Yes Hx Cardia Arrhythmia: Yes Hx Congestive Heart Failure: Yes Hx Hypercholesterolemia: Yes Hx Hypertension: Yes Hx Peripheral Edema: Yes - PULMONARY Hx Asthma: No Hx Bronchitis: Yes Hx Chronic Obstructive Pulmonary Disease (COPD): Yes Hx Pneumonia: Yes - NEUROLOGICAL Hx Neurological Disorder: No - HEENT Hx HEENT Problems: No - RENAL Hx Chronic Kidney Disease: Yes Hx Dialysis: No - ENDOCRINE/METABOLIC Hx Endocrine Disorders: Yes Hx Diabetes Mellitus Type 2: Yes - HEMATOLOGICAL/ONCOLOGICAL Hx Anemia: Yes Hx Human Immunodeficiency Virus (HIV): No - INTEGUMENTARY Hx Dermatological Problems: No - MUSCULOSKELETAL/RHEUMATOLOGICAL Hx Arthritis: Yes Hx Osteoporosis: Yes - GASTROINTESTINAL Hx Gall Bladder Disease: Yes Hx Gastritis: Yes - GENITOURINARY/GYNECOLOGICAL Hx Genitourinary Disorders: No - PSYCHIATRIC Hx Anxiety: Yes Hx Depression: Yes - SURGICAL HISTORY Hx Cholecystectomy: Yes Hx Coronary Stent: Yes - ANESTHESIA Hx Anesthesia: Yes Hx Anesthesia Reactions: No Hx Malignant Hyperthermia: No Meds Allergies/Adverse Reactions: Allergies Allergy/AdvReac Type Severity Reaction Status Date / Time alprazolam [From Xanax] Allergy SWELLING Verified 05/21/17 16:15 hydromorphone HCl Allergy RASH Verified 05/21/17 16:15 [From Dilaudid] zolpidem tartrate Allergy RASH Verified 05/21/17 16:15 [From Ambien] - Medications Medications: Current Medications Acetaminophen (Tylenol 325mg Tab) 650 mg PO Q6H PRN PRN Reason: Pain, Mild (1-3) Amlodipine Besylate (Norvasc) 10 mg PO DAILY [facility] Last Admin: 05/23/17 09:01 Dose: 10 mg Aspirin (Ecotrin) 81 mg PO DAILY [facility] Last Admin: 05/23/17 08:56 Dose: 81 mg Cholestyramine Resin (Questran) 4 gm PO DAILY [facility] Stop: 05/25/17 23:59 Clonidine HCl (Catapres) 0.2 mg PO Q8H [facility] Last Admin: 05/23/17 16:23 Dose: Not Given Doxepin HCl (Sinequan) 10 mg PO HS [facility] Last Admin: 05/22/17 21:31 Dose: 10 mg Enoxaparin Sodium (Lovenox) 30 mg SC DAILY [facility] PRN Reason: Protocol Last Admin: 05/23/17 09:00 Dose: 30 mg Furosemide (Lasix) 40 mg PO DAILY [facility] Last Admin: 05/23/17 09:00 Dose: 40 mg Glipizide (Glucotrol) 10 mg PO DAILY [facility] Last Admin: 05/23/17 08:56 Dose: 10 mg Insulin Human Regular (Humulin R) 0 units SC [facility] PRN Reason: Protocol Last Admin: 05/23/17 16:24 Dose: Not Given Isosorbide Mononitrate (Imdur Er) 30 mg PO DAILY [facility] Last Admin: 05/23/17 08:56 Dose: 30 mg Metoprolol Tartrate (Lopressor) 100 mg PO Q12H [facility] Last Admin: 05/23/17 16:24 Dose: Not Given Ondansetron HCl (Zofran Inj) 4 mg IVP Q4 PRN PRN Reason: Nausea/Vomiting Pantoprazole Sodium (Protonix Ec Tab) 40 mg PO DAILY [facility] Last Admin: 05/23/17 09:01 Dose: 40 mg Pravastatin Sodium (Pravachol) 40 mg PO DAILY [facility] Last Admin: 05/23/17 09:01 Dose: 40 mg Sitagliptin Phosphate (Januvia) 100 mg PO DAILY [facility] Last Admin: 05/23/17 08:57 Dose: 100 mg Sucralfate (Carafate Tab) 1 gm PO BID [facility] Last Admin: 05/23/17 16:31 Dose: Not Given Physical Exam - Constitutional Appears: No Acute Distress - Head Exam Head Exam: ATRAUMATIC - Eye Exam Eye Exam: EOMI - ENT Exam ENT Exam: Normal Exam - Neck Exam Neck exam: Positive for: Full Rom - Respiratory Exam Respiratory Exam: Clear to Auscultation Bilateral - Cardiovascular Exam Cardiovascular Exam: REGULAR RHYTHM, +S1, +S2 - GI/Abdominal Exam GI & Abdominal Exam: Normal Bowel Sounds, Soft, Tenderness Additional comments: midabdominal tenderness - Extremities Exam Extremities exam: Positive for: normal inspection Results - Vital Signs Recent Vital Signs: Last Vital Signs Temp 97.2 F L 05/23/17 15:57 Pulse 76 05/23/17 16:24 Resp 18 05/23/17 15:57 BP 105/64 05/23/17 16:24 Pulse Ox 98 05/23/17 15:57 - Labs Result Diagrams: 05/23/17 04:20 05/23/17 04:20 Labs: Laboratory Results - last 24 hr 05/22/17 05/22/17 05/22/17 13:14 13:14 17:45 WBC RBC Hgb Hct MCV MCH MCHC RDW Plt Count Sodium Potassium Chloride Carbon Dioxide Anion Gap BUN Creatinine Est GFR ( Amer) Est GFR (Non-Af Amer) POC Glucose (mg/dL) 62 L Random Glucose Calcium Total Bilirubin AST ALT Alkaline Phosphatase Total Protein Albumin Globulin Albumin/Globulin Ratio Stool Leukocytes, Qual Positive H C. difficile Ag & Toxin Giardia Antigen Not detected 05/22/17 05/22/17 05/22/17 18:43 19:37 21:41 WBC RBC Hgb Hct MCV MCH MCHC RDW Plt Count Sodium Potassium Chloride Carbon Dioxide Anion Gap BUN Creatinine Est GFR ( Amer) Est GFR (Non-Af Amer) POC Glucose (mg/dL) 79 122 H Random Glucose Calcium Total Bilirubin AST ALT Alkaline Phosphatase Total Protein Albumin Globulin Albumin/Globulin Ratio Stool Leukocytes, Qual C. difficile Ag & Toxin Negative Giardia Antigen 05/23/17 05/23/17 05/23/17 04:20 04:20 05:08 WBC 5.7 RBC 3.29 L Hgb 9.8 L D Hct 30.3 L MCV 92.1 MCH 29.7 MCHC 32.2 L RDW 14.6 H Plt Count 198 Sodium 141 Potassium 4.3 Chloride 109 H Carbon Dioxide 22 Anion Gap 14 BUN 28 H Creatinine 2.3 H Est GFR ( Amer) 25 Est GFR (Non-Af Amer) 21 POC Glucose (mg/dL) 206 H Random Glucose 129 H Calcium 7.4 L Total Bilirubin 0.3 AST 26 ALT 19 Alkaline Phosphatase 56 Total Protein 5.7 L Albumin 2.8 L Globulin 2.8 Albumin/Globulin Ratio 1.0 Stool Leukocytes, Qual C. difficile Ag & Toxin Giardia Antigen 05/23/17 05/23/17 05/23/17 11:42 16:24 16:40 WBC RBC Hgb Hct MCV MCH MCHC RDW Plt Count Sodium Potassium Chloride Carbon Dioxide Anion Gap BUN Creatinine Est GFR ( Amer) Est GFR (Non-Af Amer) POC Glucose (mg/dL) 185 H 71 Random Glucose Calcium Total Bilirubin AST ALT Alkaline Phosphatase Total Protein Albumin Globulin Albumin/Globulin Ratio Stool Leukocytes, Qual C. difficile Ag & Toxin Negative Giardia Antigen Assessment & Plan (1) Diarrhea Assessment and Plan: Diarrhea persists . Stool positive for leukocytes, culture pending. C diff antigen is negative. For now will stop PPI and start cholestyramine. Will follow daily with you. Status: Acute
--- NOTE | 2017-05-23 20:02 | CP.PCM.PN ---
Subjective - Date & Time of Evaluation Date of Evaluation: 05/23/17 Time of Evaluation: 20:01 - Subjective Subjective: pt is seen and examined, follow up consult is dictated #[id number] Objective - Vital Signs/Intake and Output Vital Signs (last 24 hours): Temp Pulse Resp BP Pulse Ox 98.1 F 77 17 130/76 96 05/23/17 19:52 05/23/17 19:52 05/23/17 19:52 05/23/17 19:52 05/23/17 19:52 - Medications Medications: Current Medications Acetaminophen (Tylenol 325mg Tab) 650 mg PO Q6H PRN PRN Reason: Pain, Mild (1-3) Amlodipine Besylate (Norvasc) 10 mg PO DAILY [facility] Last Admin: 05/23/17 09:01 Dose: 10 mg Aspirin (Ecotrin) 81 mg PO DAILY [facility] Last Admin: 05/23/17 08:56 Dose: 81 mg Cholestyramine Resin (Questran) 4 gm PO DAILY [facility] Stop: 05/25/17 23:59 Clonidine HCl (Catapres) 0.2 mg PO Q8H [facility] Last Admin: 05/23/17 16:23 Dose: Not Given Doxepin HCl (Sinequan) 10 mg PO HS [facility] Last Admin: 05/22/17 21:31 Dose: 10 mg Enoxaparin Sodium (Lovenox) 30 mg SC DAILY [facility] PRN Reason: Protocol Last Admin: 05/23/17 09:00 Dose: 30 mg Furosemide (Lasix) 40 mg PO DAILY [facility] Last Admin: 05/23/17 09:00 Dose: 40 mg Glipizide (Glucotrol) 10 mg PO DAILY [facility] Last Admin: 05/23/17 08:56 Dose: 10 mg Insulin Human Regular (Humulin R) 0 units SC [facility] PRN Reason: Protocol Last Admin: 05/23/17 16:24 Dose: Not Given Isosorbide Mononitrate (Imdur Er) 30 mg PO DAILY [facility] Last Admin: 05/23/17 08:56 Dose: 30 mg Metoprolol Tartrate (Lopressor) 100 mg PO Q12H [facility] Last Admin: 05/23/17 16:24 Dose: Not Given Ondansetron HCl (Zofran Inj) 4 mg IVP Q4 PRN PRN Reason: Nausea/Vomiting Pravastatin Sodium (Pravachol) 40 mg PO DAILY [facility] Last Admin: 05/23/17 09:01 Dose: 40 mg Sitagliptin Phosphate (Januvia) 100 mg PO DAILY [facility] Last Admin: 05/23/17 08:57 Dose: 100 mg Sucralfate (Carafate Tab) 1 gm PO BID [facility] Last Admin: 05/23/17 16:31 Dose: Not Given - Labs Labs: 05/23/17 04:20 05/23/17 04:20
[2017-05-23] MEDS: Cholestyramine 4 gm/Pkt UD PO SCH (22:09)
[2017-05-24] MEDS: Insulin Regular 100 units/ml SC SCH ×4 (06:39→22:47)
[2017-05-24 06:56] LABS: HEMOGLOBIN 10.2 g/dL (12.0-16.0); MEAN CORPUSCULAR HEMOGLOBIN 29.7 pg (27.0-31.0); MEAN CORPUSCULAR HGB CONC 32.3 g/dL (33.0-37.0); RBC 3.44 Mil/uL (3.80-5.20); RED CELL DISTRIBUTION WIDTH 14.9 % (11.5-14.5); WHITE BLOOD COUNT 4.6 K/uL (4.8-10.8)
[2017-05-24 07:01] LABS: CALCIUM 7.6 mg/dL (8.4-10.2)
--- NOTE | 2017-05-24 08:16 | PN ---
DATE: FOLLOWUP RENAL CONSULTATION LOCATION: The patient is located in 415, bed 1. REQUESTED BY: Manpreet Austin MD REASON FOR FOLLOWUP: Chronic kidney disease and for further evaluation and diarrhea. HISTORY OF PRESENT ILLNESS: Mrs. Najera is a 77 years elderly female with a past medical history significant for hypertension, diabetes, CHF, COPD, coronary artery disease, cardiac arrhythmias, AFib, anemia, anxiety, arthritis, asthma, chronic low back pain, was admitted with chief complaints of nausea, vomiting, diarrhea, and abdominal discomfort. The patient was hypertensive in the emergency room and also tachycardic and started on IV bolus and then started on IV fluids normal saline at 70 mL/hour. The patient still complains of diarrhea and also complains of lower back pain. Denies any shortness of breath. Denies any chest pain or palpitation today. No fever. PHYSICAL EXAMINATION: VITAL SIGNS: As follows, blood pressure 130/76, pulse 77, respirations 17, temperature 98.1, saturation 96%. Height 5 feet 2 inches, weight is 131 pounds. GENERAL: Mrs. Najera is 77 years old elderly female, moderately built, moderate nourished, not in distress. HEENT: Pupils normal and reactive to light and accommodation. Conjunctivae pink. Sclerae anicteric. Tongue is moist. Trachea is midline. LUNGS: Symmetric on both sides. Bilateral breath sounds present. Clear on auscultation. CVS: [place] at the fifth intercostal space, midclavicular line. S1, S2 audible. Occasionally irregularly irregular. ABDOMEN: Normal in appearance, soft, tympanic. No guarding. No rigidity. No hepatosplenomegaly. PRACTICE BILLING ASSOCIATE: The patient is alert, awake, oriented times two to three. Sensory and motor system is grossly within normal limits. EXTREMITIES: No cyanosis, no clubbing, no edema. MEDICATIONS: Her current medications include as follows: Carafate 1 gm p.o. b.i.d., clonidine 0.2 mg p.o. q.8 hours, aspirin 81 mg daily, Glucotrol 10 mg p.o. daily, Imdur 30 mg p.o. daily, Januvia 100 mg p.o. daily, Lasix 40 mg p.o. daily, Lopressor 100 mg p.o. q.12 hours, Lovenox 30 mg subcu daily, amlodipine 10 mg daily, pravastatin 40 mg p.o. daily, Questran 4 gm p.o. daily, doxepin 10 mg p.o. at bedtime, Tylenol, and Zofran. LABORATORY DATA: Her laboratory data include as follows. As of 05/23/2017, WBC 5.7, hemoglobin 9.8, hematocrit is 30.3, platelets 198. Sodium 141, potassium 4.3, chloride 109, CO2 of 22, BUN 28, creatinine 2.3, glucose 129, calcium 7.4. Total bili 0.3, AST 26, ALT 19, alkaline phosphatase 56, total protein 5.7, albumin is 2.8. Stool for C. diff toxin is negative, stool for leukocytes is positive. IMPRESSION: In summary, Mrs. Najera is 77 years old elderly female, moderately built, moderate nourished with hypertension, diabetes, chronic obstructive pulmonary disease, congestive heart failure, atrial fibrillation, arthritis, anxiety, low back pain, was admitted with nausea, vomiting, diarrhea, abdominal discomfort for 2 days and stool for leukocytes is positive. 1. Chronic kidney disease IV , most likely secondary to hypertensive nephrosclerosis and cannot rule out underlying diabetic nephropathy. 2. Anemia secondary to chronic kidney disease. 3. Nausea, vomiting, diarrhea, rule out gastroenteritis, rule out bacterial infection versus viral infection. Check stool for cultures if possible, and consider IV antibiotics and ID evaluation. The patient has a persistent diarrhea. Continue with gentle IV hydration, and we will also check iron, TIBC, ferritin, and we will add Epogen 10,000 units subcu x1 dose and also we will add Nephrocaps 1 tablet p.o. daily. We will follow with you. Thank you for allowing me to participate in your patient's care. Sonido Miguel MD
--- NOTE | 2017-05-24 08:24 | CP.PCM.PN ---
Subjective - Date & Time of Evaluation Date of Evaluation: 05/24/17 Time of Evaluation: 07:20 - Subjective Subjective: Patient evaluated during morning rounds with Dr Austin. Iris. still c/o RUQ pain. Gallbladder status clarified. Patient states she had GB surgery but only to remove stones in the past. Denies vomiting, nausea, diarrhea, fever. Objective - Vital Signs/Intake and Output Vital Signs (last 24 hours): Temp Pulse Resp BP Pulse Ox 98.0 F 67 18 138/74 96 05/24/17 05:03 05/24/17 05:07 05/24/17 05:03 05/24/17 05:07 05/24/17 06:29 Intake and Output: 05/24/17 05/24/17 06:59 18:59 Intake Total 300 Balance 300 - Medications Medications: Current Medications Acetaminophen (Tylenol 325mg Tab) 650 mg PO Q6H PRN PRN Reason: Pain, Mild (1-3) Amlodipine Besylate (Norvasc) 10 mg PO DAILY [facility] Last Admin: 05/23/17 09:01 Dose: 10 mg Aspirin (Ecotrin) 81 mg PO DAILY [facility] Last Admin: 05/23/17 08:56 Dose: 81 mg Cholestyramine Resin (Questran) 4 gm PO DAILY [facility] Stop: 05/25/17 23:59 Last Admin: 05/23/17 22:09 Dose: 4 gm Clonidine HCl (Catapres) 0.2 mg PO Q8H [facility] Last Admin: 05/24/17 01:03 Dose: 0.2 mg Doxepin HCl (Sinequan) 10 mg PO HS [facility] Last Admin: 05/23/17 22:31 Dose: 10 mg Enoxaparin Sodium (Lovenox) 30 mg SC DAILY [facility] PRN Reason: Protocol Last Admin: 05/23/17 09:00 Dose: 30 mg Furosemide (Lasix) 40 mg PO DAILY [facility] Last Admin: 05/23/17 09:00 Dose: 40 mg Glipizide (Glucotrol) 10 mg PO DAILY [facility] Last Admin: 05/23/17 08:56 Dose: 10 mg Insulin Human Regular (Humulin R) 0 units SC [facility] PRN Reason: Protocol Last Admin: 05/24/17 06:39 Dose: Not Given Isosorbide Mononitrate (Imdur Er) 30 mg PO DAILY [facility] Last Admin: 05/23/17 08:56 Dose: 30 mg Metoprolol Tartrate (Lopressor) 100 mg PO Q12H [facility] Last Admin: 05/24/17 05:07 Dose: 100 mg Ondansetron HCl (Zofran Inj) 4 mg IVP Q4 PRN PRN Reason: Nausea/Vomiting Pravastatin Sodium (Pravachol) 40 mg PO DAILY [facility] Last Admin: 05/23/17 09:01 Dose: 40 mg Sitagliptin Phosphate (Januvia) 100 mg PO DAILY [facility] Last Admin: 05/23/17 08:57 Dose: 100 mg Sucralfate (Carafate Tab) 1 gm PO BID [facility] Last Admin: 05/23/17 16:31 Dose: Not Given - Labs Labs: 05/24/17 05:30 05/24/17 05:30 - Constitutional Appears: Non-toxic, No Acute Distress - Head Exam Head Exam: NORMAL INSPECTION - Eye Exam Eye Exam: EOMI, PERRL - ENT Exam ENT Exam: Mucous Membranes Moist - Respiratory Exam Respiratory Exam: Clear to Ausculation Bilateral, NORMAL BREATHING PATTERN. absent: Rales - Cardiovascular Exam Cardiovascular Exam: REGULAR RHYTHM, +S1, +S2. absent: Gallop - GI/Abdominal Exam GI & Abdominal Exam: Soft, Tenderness (Mild RUQ), Normal Bowel Sounds - Neurological Exam Neurological Exam: Alert, Awake, Oriented x3 - Psychiatric Exam Psychiatric exam: Normal Affect, Normal Mood - Skin Skin Exam: Normal Color, Warm Assessment and Plan - Assessment and Plan (Free Text) Assessment: 77 y/o F with multiple co-morbidities admitted for gastroenteritis and elevated troponins Gastroenteritis, acute WBC in stools elevated Still c/o RUQ pain Abd US: CBD dilation GI consult appreciated: Stopped PPIs, cholestyramine started RUQ pain acute, present on admission CBD dilation on Abd US Hx of GB stones MRCP ordered Stable
[2017-05-24] MEDS: Cholestyramine 4 gm/Pkt UD PO SCH (10:29)
[2017-05-24] MEDS: Enoxaparin 30 mg Syringe SC SCH (10:29)
[2017-05-24] MEDS: Pravastatin Sodium 40 MG TAB PO SCH (10:29)
--- NOTE | 2017-05-24 12:56 | CP.PCM.PN ---
Subjective - Date & Time of Evaluation Date of Evaluation: 05/24/17 Time of Evaluation: 12:55 - Subjective Subjective: pt is seen and examined, follow up consult is dictated #[id number] c/w ivf Objective - Vital Signs/Intake and Output Vital Signs (last 24 hours): Temp Pulse Resp BP Pulse Ox 98.1 F 78 18 149/70 93 L 05/24/17 11:53 05/24/17 11:53 05/24/17 11:53 05/24/17 11:53 05/24/17 11:53 Intake and Output: 05/24/17 05/24/17 06:59 18:59 Intake Total 300 Balance 300 - Medications Medications: Current Medications Acetaminophen (Tylenol 325mg Tab) 650 mg PO Q6H PRN PRN Reason: Pain, Mild (1-3) Amlodipine Besylate (Norvasc) 10 mg PO DAILY [facility] Last Admin: 05/24/17 10:28 Dose: 10 mg Aspirin (Ecotrin) 81 mg PO DAILY [facility] Last Admin: 05/24/17 10:28 Dose: 81 mg Cholestyramine Resin (Questran) 4 gm PO DAILY [facility] Stop: 05/25/17 23:59 Last Admin: 05/24/17 10:29 Dose: 4 gm Clonidine HCl (Catapres) 0.2 mg PO Q8H [facility] Last Admin: 05/24/17 10:27 Dose: 0.2 mg Doxepin HCl (Sinequan) 10 mg PO HS [facility] Last Admin: 05/23/17 22:31 Dose: 10 mg Enoxaparin Sodium (Lovenox) 30 mg SC DAILY [facility] PRN Reason: Protocol Last Admin: 05/24/17 10:29 Dose: 30 mg Furosemide (Lasix) 40 mg PO DAILY [facility] Last Admin: 05/24/17 10:30 Dose: 40 mg Glipizide (Glucotrol) 10 mg PO DAILY [facility] Last Admin: 05/24/17 10:28 Dose: 10 mg Insulin Human Regular (Humulin R) [address] [facility] PRN Reason: Protocol Last Admin: 05/24/17 06:39 Dose: Not Given Isosorbide Mononitrate (Imdur Er) 30 mg PO DAILY [facility] Last Admin: 05/24/17 10:27 Dose: 30 mg Metoprolol Tartrate (Lopressor) 100 mg PO Q12H [facility] Last Admin: 05/24/17 05:07 Dose: 100 mg Ondansetron HCl (Zofran Inj) 4 mg IVP Q4 PRN PRN Reason: Nausea/Vomiting Pravastatin Sodium (Pravachol) 40 mg PO DAILY [facility] Last Admin: 05/24/17 10:29 Dose: 40 mg Sitagliptin Phosphate (Januvia) 100 mg PO DAILY [facility] Last Admin: 05/24/17 10:27 Dose: 100 mg Sucralfate (Carafate Tab) 1 gm PO BID [facility] Last Admin: 05/24/17 10:27 Dose: 1 gm - Labs Labs: 05/24/17 05:30 05/24/17 05:30
--- NOTE | 2017-05-24 14:54 | PQF GENQUE ---
Dr. Austin, Please specify the type and acuity of heart failure in your progress notes: if known or hx. only and not a chronic condition 1. TYPE: Combined systolic and diastolic Heart failure with reduced ejection fraction and diastolic dysfunction Diastolic HFpEF Systolic HFrEF Left heart failure Right heart failure Right heart failure due to left heart failure High Output failure End stage heart failure Other (please specify) Clinically unable to determine Unknown 2. ACUITY: Acute Chronic Acute on chronic Other (please specify) Clinically unable to determine Unknown CXR: Impression : Stable cardiomegaly. No acute infiltrate bilaterally. Limited bilateral pulmonary fibrotic changes again noted. 05/06/17 Echo report in the EMR: E.F.: 45-50%; Aortic valve is moderately thickened , moderate valvular aortic stenosis, mitral regurg is mild to moderate , moderate pulmonary hypertension. H and P: hx. CHF Lasix 40 mg PO daily This form is a permanent part of the medical record Clarification of your documentation is requested to better reflect the severity of illness and intensity of treatment of your patient. Indicators present [] Specify: [] [] Specify: [] [] Specify: [] [] Specify: [] Location in the medical record that reflects the above clinical findings: [] Treatment Provided: [] PHYSICIAN'S RESPONSE Based on your medical judgment of the clinical indicators outlined above please clarify the following: [] Practitioner response [] If unable to determine, please check the box, sign and date. Present On Admission (POA) Indicator: [] Present at the time of admission [] Not present at the time of admission [] Clinically Undetermined In responding to this query, please exercise your independent professional judgment. The fact that a question is asked does not imply that any particular answer is desired or expected. Thank you for your clarification on this documentation. If you have any questions please call. * Thank you, Charlotte Moreira RN ext. #[phone] MTDD
[2017-05-24] MEDS: metroNIDAZOLE 500mg/100ml NS 50 ML IVPB SCH (17:15)
[2017-05-24] MEDS: Ciprofloxacin 200mg/100ml D5W 100 ML IVPB SCH ×2 (17:16→21:06)
--- NOTE | 2017-05-24 18:58 | MRI ---
MRCP Indication: Choledocholithiasis, CBD dilatation Technique: Multiplanar, multisequence MR images of the abdomen were obtained, including heavily T2 weighted MRCP images of the biliary system. Rotating maximum intensity projection images of the biliary system were generated. A total of 717 images were submitted for review. Comparison: Limited abdominal ultrasound performed 05/23/17, CT of the abdomen and pelvis without IV contrast performed 05/21/17 Findings: There is no intrahepatic biliary ductal dilatation. The common bile duct appears within normal limits of caliber without focal filling defect evident. The pancreatic duct appears within normal limits of caliber. No filling defects are seen in the common bile duct or pancreatic duct. The noncontrast imaged portions of the liver, gallbladder common adrenal glands, kidneys, spleen, and pancreas appear unremarkable. No bulky abdominal lymphadenopathy is seen. No ascites. No acute osseous abnormality is detected. Impression: No filling defects seen within the common bile duct which appears within normal limits of caliber.
--- NOTE | 2017-05-24 23:48 | CP.PCM.PN ---
Subjective - Date & Time of Evaluation Date of Evaluation: 05/24/17 Time of Evaluation: 15:00 - Subjective Subjective: Patient still c/o diarrhea but has been complaining less to nurse of diarrheal symptoms. Objective - Vital Signs/Intake and Output Vital Signs (last 24 hours): Temp Pulse Resp BP Pulse Ox 97.8 F 67 17 132/71 95 05/24/17 20:46 05/24/17 20:46 05/24/17 20:46 05/24/17 20:46 05/24/17 20:46 Intake and Output: 05/24/17 05/25/17 18:59 06:59 Intake Total 800 Balance 800 - Medications Medications: Current Medications Acetaminophen (Tylenol 325mg Tab) 650 mg PO Q6H PRN PRN Reason: Pain, Mild (1-3) Amlodipine Besylate (Norvasc) 10 mg PO DAILY [facility] Last Admin: 05/24/17 10:28 Dose: 10 mg Aspirin (Ecotrin) 81 mg PO DAILY [facility] Last Admin: 05/24/17 10:28 Dose: 81 mg Cholestyramine Resin (Questran) 4 gm PO DAILY [facility] Stop: 05/25/17 23:59 Last Admin: 05/24/17 10:29 Dose: 4 gm Clonidine HCl (Catapres) 0.2 mg PO Q8H [facility] Last Admin: 05/24/17 17:17 Dose: 0.2 mg Doxepin HCl (Sinequan) 10 mg PO HS [facility] Last Admin: 05/24/17 21:08 Dose: 10 mg Enoxaparin Sodium (Lovenox) 30 mg SC DAILY [facility] PRN Reason: Protocol Last Admin: 05/24/17 10:29 Dose: 30 mg Furosemide (Lasix) 40 mg PO DAILY [facility] Last Admin: 05/24/17 10:30 Dose: 40 mg Glipizide (Glucotrol) 10 mg PO DAILY [facility] Last Admin: 05/24/17 10:28 Dose: 10 mg Ciprofloxacin (Cipro 200mg/100ml D5w) 100 mls @ 100 mls/hr IVPB Q12 [facility] Last Admin: 05/24/17 21:06 Dose: Not Given Metronidazole (Flagyl 500mg/100ml Ns) 50 mls @ 50 mls/hr IVPB Q8 [facility] PRN Reason: Protocol Last Admin: 05/24/17 17:15 Dose: 50 mls/hr Insulin Human Regular (Humulin R) 0 units SC ACHS [facility] PRN Reason: Protocol Last Admin: 05/24/17 22:47 Dose: Not Given Isosorbide Mononitrate (Imdur Er) 30 mg PO DAILY [facility] Last Admin: 05/24/17 10:27 Dose: 30 mg Metoprolol Tartrate (Lopressor) 100 mg PO Q12H [facility] Last Admin: 05/24/17 17:22 Dose: 100 mg Ondansetron HCl (Zofran Inj) 4 mg IVP Q4 PRN PRN Reason: Nausea/Vomiting Pravastatin Sodium (Pravachol) 40 mg PO DAILY [facility] Last Admin: 05/24/17 10:29 Dose: 40 mg Sitagliptin Phosphate (Januvia) 100 mg PO DAILY [facility] Last Admin: 05/24/17 10:27 Dose: 100 mg Sucralfate (Carafate Tab) 1 gm PO BID [facility] Last Admin: 05/24/17 17:17 Dose: 1 gm - Labs Labs: 05/24/17 05:30 05/24/17 05:30 - Head Exam Head Exam: ATRAUMATIC - Eye Exam Eye Exam: Normal appearance - ENT Exam ENT Exam: Mucous Membranes Moist - Respiratory Exam Respiratory Exam: Clear to Ausculation Bilateral - Cardiovascular Exam Cardiovascular Exam: REGULAR RHYTHM - GI/Abdominal Exam GI & Abdominal Exam: Soft, Normal Bowel Sounds. absent: Tenderness Assessment and Plan (1) Diarrhea Assessment & Plan: Had MRCP today which was negative. Started yesterday on cholestyramine. Will follw with you clinically. Status: Acute
[2017-05-25] MEDS: metroNIDAZOLE 500mg/100ml NS 50 ML IVPB SCH ×2 (00:45→10:50)
[2017-05-25 06:01] LABS: HEMOGLOBIN 10.4 g/dL (12.0-16.0); MEAN CELL VOLUME 91.8 fl (81.0-99.0); MEAN CORPUSCULAR HEMOGLOBIN 29.6 pg (27.0-31.0); MEAN CORPUSCULAR HGB CONC 32.3 g/dL (33.0-37.0); RBC 3.52 Mil/uL (3.80-5.20); RED CELL DISTRIBUTION WIDTH 14.9 % (11.5-14.5); WHITE BLOOD COUNT 3.4 K/uL (4.8-10.8)
[2017-05-25 06:46] LABS: CALCIUM 8.2 mg/dL (8.4-10.2)
[2017-05-25] MEDS: Insulin Regular 100 units/ml SC SCH ×3 (06:47→18:00)
--- NOTE | 2017-05-25 10:33 | PQF GENQUE ---
Dr. Austin, Type of Gastroeneteritis? if known: after the work up is completed: i.e. Bacterial versus Viral versus Drug induced etc. OR: Unable to determine WBC: 7.8->5.6->5.7->4.6->3.4 left shift Stool culture: no salmonella, shigella, or campylobacter Stool O+P: negative 05/22: H and P: PMhx of HTN, CAD, DM, CKD, COPD ; Pt states for the past 2-3 days she's had some episodes of NBNB vomiting with epigastric/RUQ abdominal pain. Also NBNM watery diarrhea for 2 days; -- was admitted into hospital earlier this month for a cough and diarrhea. Admitted for gastroenteritis and elevated troponins ; 1.Gastroenteritis, acute likely viral GI consult appreciated C/W supportive care F/U stool analysis 05/23 GI note :; Diarrhea persists . Stool positive for leukocytes, culture pending. C diff antigen is negative. For now will stop PPI and start cholestyramine. 05/23 Renal note: with nausea, vomiting, diarrhea, abdominal discomfort for 2 days and stool for leukocytes is positive. Impression includes: Nausea, vomiting, diarrhea, rule out gastroenteritis, rule out bacterial infection versus viral infection. 05/24; GI note: MRCP was negative VF', 05/24 IV: Flagyl and CIPRO started This form is a permanent part of the medical record Clarification of your documentation is requested to better reflect the severity of illness and intensity of treatment of your patient. Indicators present [] Specify: [] [] Specify: [] [] Specify: [] [] Specify: [] Location in the medical record that reflects the above clinical findings: [] Treatment Provided: [] PHYSICIAN'S RESPONSE Based on your medical judgment of the clinical indicators outlined above please clarify the following: [] Practitioner response [] If unable to determine, please check the box, sign and date. Present On Admission (POA) Indicator: [] Present at the time of admission [] Not present at the time of admission [] Clinically Undetermined In responding to this query, please exercise your independent professional judgment. The fact that a question is asked does not imply that any particular answer is desired or expected. Thank you for your clarification on this documentation. If you have any questions please call. * Thank you, Charlotte Moreira RN ext. #[phone] MTDD
[2017-05-25] MEDS: Cholestyramine 4 gm/Pkt UD PO SCH (10:51)
[2017-05-25] MEDS: Enoxaparin 30 mg Syringe SC SCH (10:52)
[2017-05-25] MEDS: Pravastatin Sodium 40 MG TAB PO SCH (10:53)
[2017-05-25] MEDS: Ciprofloxacin 200mg/100ml D5W 100 ML IVPB SCH (10:56)
[2017-05-25 13:18] LABS: ALB/GLOB RATIO 1.1 (1.0-2.1); ALBUMIN 3.2 g/dL (3.5-5.0); BILIRUBIN,DIRECT 0.3 mg/ml (0.0-0.4)
[2017-05-25 13:31] VITALS: PULSE 73; O2SAT 96
--- NOTE | 2017-05-25 14:30 | CP.PCM.DIS ---
Provider - Provider Date of Admission: 05/22/17 22:47 Attending physician: Manpreet Austin MD Consults: Cardiology GI Nephrology Time Spent in preparation of Discharge (in minutes): 35 Diagnosis - Discharge Diagnosis (1) Gastroenteritis Status: Acute Comment: Improved. Poss infectious. Undetermined. C/W PO Abx. (2) Renal insufficiency Status: Chronic Comment: Stable. BUN/Creat improved. (3) Elevated troponin Status: Chronic Comment: Acute on chronic. Stable. No CP Hospital Course - Lab Results Lab Results: Micro Results 05/22/17 13:14 Stool Stool Culture - Final NO SALMONELLA, SHIGELLA OR CAMPYLOBACTER ISOLATED. 05/22/17 13:14 Stool Ova and Parasite Concentrate Exam - Final Most Recent Lab Values WBC 3.4 K/uL (4.8-10.8) L 05/25/17 05:01 RBC 3.52 Mil/uL (3.80-5.20) L 05/25/17 05:01 Hgb 10.4 g/dL (12.0-16.0) L 05/25/17 05:01 Hct 32.3 % (34.0-47.0) L 05/25/17 05:01 MCV 91.8 fl (81.0-99.0) 05/25/17 05:01 MCH 29.6 pg (27.0-31.0) 05/25/17 05:01 MCHC 32.3 g/dL (33.0-37.0) L 05/25/17 05:01 RDW 14.9 % (11.5-14.5) H 05/25/17 05:01 Plt Count 195 K/uL (130-400) 05/25/17 05:01 MPV 8.3 fl (7.2-11.7) 05/21/17 18:00 Neut % (Auto) 76.0 % (50.0-75.0) H 05/21/17 18:00 Lymph % (Auto) 15.6 % (20.0-40.0) L 05/21/17 18:00 [place] % (Auto) 6.8 % (0.0-10.0) 05/21/17 18:00 Eos % (Auto) 1.2 % (0.0-4.0) 05/21/17 18:00 Baso % (Auto) 0.4 % (0.0-2.0) 05/21/17 18:00 Neut # (Auto) 5.9 K/uL (1.8-7.0) 05/21/17 18:00 Lymph # (Auto) 1.2 K/uL (1.0-4.3) 05/21/17 18:00 [place] # (Auto) 0.5 K/uL (0.0-0.8) 05/21/17 18:00 Eos # (Auto) 0.1 K/uL (0.0-0.7) 05/21/17 18:00 Baso # (Auto) 0.0 K/uL (0.0-0.2) 05/21/17 18:00 Sodium 143 mmol/l (132-148) 05/25/17 05:01 Potassium 4.4 MMOL/L (3.6-5.0) 05/25/17 05:01 Chloride 111 mmol/L (98-107) H 05/25/17 05:01 Carbon Dioxide 23 mmol/L (22-30) 05/25/17 05:01 Anion Gap 13 (10-20) 05/25/17 05:01 BUN 23 mg/dl (7-17) H 05/25/17 05:01 Creatinine 1.6 mg/dl (0.7-1.2) H 05/25/17 05:01 Est GFR ( Amer) 38 05/25/17 05:01 Est GFR (Non-Af Amer) 31 05/25/17 05:01 POC Glucose (mg/dL) 117 mg/dL (65-110) H 05/25/17 10:33 Random Glucose 177 mg/dL (65-105) H 05/25/17 05:01 Calcium 8.2 mg/dL (8.4-10.2) L 05/25/17 05:01 Total Bilirubin 0.3 mg/dl (0.2-1.3) 05/25/17 09:14 Direct Bilirubin 0.3 mg/ml (0.0-0.4) 05/25/17 09:14 AST 34 U/L (14-36) 05/25/17 09:14 ALT 22 U/L (9-52) 05/25/17 09:14 Alkaline Phosphatase 63 U/L (38-126) 05/25/17 09:14 Troponin I 0.1420 ng/mL (0.00-0.120) H* 05/22/17 08:51 Total Protein 6.1 G/DL (6.3-8.2) L 05/25/17 09:14 Albumin 3.2 g/dL (3.5-5.0) L 05/25/17 09:14 Globulin 3.0 gm/dL (2.2-3.9) 05/25/17 09:14 Albumin/Globulin Ratio 1.1 (1.0-2.1) 05/25/17 09:14 Triglycerides 128 mg/DL (0-149) D 05/22/17 08:51 Cholesterol 212 mg/dL (0-199) H 05/22/17 08:51 LDL Cholesterol Direct 94 mg/dL (0-129) 05/22/17 08:51 HDL Cholesterol 76 MG/DL (30-70) H 05/22/17 08:51 Lipase 147 U/L (23-300) 05/21/17 18:00 Urine Color Yellow (YELLOW) 05/22/17 01:57 Urine Clarity Cloudy (Clear) 05/22/17 01:57 Urine pH 6.0 (5.0-8.0) 05/22/17 01:57 Ur Specific [place] 1.008 (1.003-1.030) 05/22/17 01:57 Urine Protein >=500 mg/dL (NEGATIVE) 05/22/17 01:57 Urine Glucose (UA) 50 mg/dL (Normal) 05/22/17 01:57 Urine Ketones Negative mg/dL (NEGATIVE) 05/22/17 01:57 Urine Blood Negative (NEGATIVE) 05/22/17 01:57 Urine Nitrate Negative (NEGATIVE) 05/22/17 01:57 Urine Bilirubin Negative (NEGATIVE) 05/22/17 01:57 Urine Urobilinogen 0.2-1.0 mg/dL (0.2-1.0) 05/22/17 01:57 Ur Leukocyte Esterase Neg [place]/uL (Negative) 05/22/17 01:57 Urine RBC (Auto) 1 /hpf (0-3) 05/22/17 01:57 Urine Microscopic WBC 1 /hpf (0-5) 05/22/17 01:57 Ur Squamous Epith Cells < 1 /hpf (0-5) 05/22/17 01:57 Urine Bacteria Rare (<OCC) 05/22/17 01:57 Hyaline Casts 0-2 /hpf (0-2) 05/22/17 01:57 Urine Osmolality 219 mosm/kg (300-1000) L 05/22/17 13:14 Ur Random Creatinine 23.9 mg/dL 05/22/17 13:14 Ur Random Sodium 66 meq/L 05/22/17 13:14 Ur Random Potassium 15.0 mmol/L 05/22/17 13:14 Stool Leukocytes, Qual Positive (NEGATIVE) H 05/22/17 13:14 C. difficile Ag & Toxin Negative (NEGATIVE) 05/23/17 16:40 Giardia Antigen Not detected (Not Detected) 05/22/17 13:14 - Hospital Course Hospital Course: Patient evalauted at bedside with Dr Austin during morning rounds. 77y/o F with PMhx of HTN, CAD, DM, CKD, COPD, Systolic CHF was admitted to hosp for acute gastroenteritis(Unknown cause, poss infectious), C.Dif neg, patient C/O RU Q pain, iamging studies R/O Acute cholecystitis or CBD dilation, afebrile. Stools positive for leuk patient started on Abx and evaluated by GI. GI symptoms markedly improved today. Patient was also evaluated by Cardiology and Nephrology for elevated troponins and CKD. No interventions needed during hosp admission for Cardiac and Nephrology pathologies and patient is discharged today to [facility] for further services. Discharge Exam - Head Exam Head Exam: ATRAUMATIC - Eye Exam Eye Exam: EOMI, PERRL - ENT Exam ENT Exam: Mucous Membranes Moist - Respiratory Exam Respiratory Exam: Clear to PA & Lateral, NORMAL BREATHING PATTERN, UNREMARKABLE - Cardiovascular Exam Cardiovascular Exam: REGULAR RHYTHM, +S1, +S2. absent: Gallop - GI/Abdominal Exam GI & Abdominal Exam: Normal Bowel Sounds, Soft, Tenderness (Mild, RUQ/ Epigastric area, improved), Unremarkable - Neurological Exam Neurological exam: Alert, Normal Gait, Oriented x3 - Psychiatric Exam Psychiatric exam: Normal Affect, Normal Mood - Skin Skin Exam: Normal Color, Warm Discharge Plan - Discharge Medications Prescriptions: Ciprofloxacin HCl [Cipro] 250 mg PO Q12 #10 tablet Metronidazole [Flagyl] 500 mg PO Q8 #15 tablet - Follow Up Plan Condition: STABLE Disposition: REHAB FACILITY/REHAB UNIT Instructions: Renal Failure Diet (DC) Additional Instructions: pt. cleared for discharge to [facility] today by cont. current meds/ PT will f/u pt. at [facility] Referrals: Manpreet Austin MD [Family Provider] -
--- NOTE | 2017-05-25 16:12 | CP.PCM.PN ---
Subjective - Date & Time of Evaluation Date of Evaluation: 05/25/17 Time of Evaluation: 14:00 - Subjective Subjective: Patient reports that she has not been having diarrhea today Objective - Vital Signs/Intake and Output Vital Signs (last 24 hours): Temp Pulse Resp BP Pulse Ox 97.7 F 73 18 136/76 96 05/25/17 13:00 05/25/17 13:00 05/25/17 13:00 05/25/17 13:00 05/25/17 13:00 - Medications Medications: Current Medications Acetaminophen (Tylenol 325mg Tab) 650 mg PO Q6H PRN PRN Reason: Pain, Mild (1-3) Amlodipine Besylate (Norvasc) 10 mg PO DAILY [facility] Last Admin: 05/25/17 10:53 Dose: 10 mg Aspirin (Ecotrin) 81 mg PO DAILY [facility] Last Admin: 05/25/17 10:51 Dose: 81 mg Cholestyramine Resin (Questran) 4 gm PO DAILY [facility] Stop: 05/25/17 23:59 Last Admin: 05/25/17 10:51 Dose: 4 gm Clonidine HCl (Catapres) 0.2 mg PO Q8H [facility] Last Admin: 05/25/17 10:52 Dose: 0.2 mg Doxepin HCl (Sinequan) 10 mg PO HS [facility] Last Admin: 05/24/17 21:08 Dose: 10 mg Enoxaparin Sodium (Lovenox) 30 mg SC DAILY [facility] PRN Reason: Protocol Last Admin: 05/25/17 10:52 Dose: 30 mg Furosemide (Lasix) 40 mg PO DAILY [facility] Last Admin: 05/25/17 10:52 Dose: 40 mg Glipizide (Glucotrol) 10 mg PO DAILY [facility] Last Admin: 05/25/17 10:51 Dose: 10 mg Ciprofloxacin (Cipro 200mg/100ml D5w) 100 mls @ 100 mls/hr IVPB Q12 [facility] Last Admin: 05/25/17 10:56 Dose: 100 mls/hr Metronidazole (Flagyl 500mg/100ml Ns) 50 mls @ 50 mls/hr IVPB Q8 [facility] PRN Reason: Protocol Last Admin: 05/25/17 10:50 Dose: 50 mls/hr Insulin Human Regular (Humulin R) 0 units SC ACHS [facility] PRN Reason: Protocol Last Admin: 05/25/17 11:34 Dose: Not Given Isosorbide Mononitrate (Imdur Er) 30 mg PO DAILY [facility] Last Admin: 05/25/17 10:51 Dose: 30 mg Metoprolol Tartrate (Lopressor) 100 mg PO Q12H [facility] Last Admin: 05/25/17 05:13 Dose: 100 mg Ondansetron HCl (Zofran Inj) 4 mg IVP Q4 PRN PRN Reason: Nausea/Vomiting Pravastatin Sodium (Pravachol) 40 mg PO DAILY [facility] Last Admin: 05/25/17 10:53 Dose: 40 mg Sitagliptin Phosphate (Januvia) 100 mg PO DAILY [facility] Last Admin: 05/25/17 10:51 Dose: 100 mg Sucralfate (Carafate Tab) 1 gm PO BID [facility] Last Admin: 05/25/17 10:50 Dose: 1 gm - Labs Labs: 05/25/17 05:01 05/25/17 05:01 - Head Exam Head Exam: ATRAUMATIC - Eye Exam Eye Exam: Normal appearance - ENT Exam ENT Exam: Normal Exam - Neck Exam Neck Exam: Full ROM - Respiratory Exam Respiratory Exam: NORMAL BREATHING PATTERN - Cardiovascular Exam Cardiovascular Exam: REGULAR RHYTHM, +S1, +S2 - GI/Abdominal Exam GI & Abdominal Exam: Soft, Normal Bowel Sounds. absent: Tenderness Assessment and Plan (1) Diarrhea Assessment & Plan: Has resolved after treatment with cholestyramine and antibiotics. Continue current treatment. Status: Acute
[2017-05-25 16:25] VITALS: BP 118/71; RESP 16; TEMP 97.3
--- NOTE | 2017-05-28 07:10 | PN ---
DATE: 05/24/2017 FOLLOWUP RENAL CONSULTATION LOCATION: Room 415, bed 1. REQUESTED BY: Dr. Manpreet Austin. REASON FOR FOLLOWUP: Chronic kidney disease and diarrhea for further evaluation. HISTORY OF PRESENT ILLNESS: Mrs. Najera is a 77 years old elderly female with a past medical history significant for longstanding hypertension, diabetes, hyperlipidemia, AFib, chronic low back pain, chronic kidney disease, anemia, anxiety, arthritis, asthma, hyperlipidemia, osteoporosis, who was admitted with chief complaints of nausea, vomiting, abdominal pain and diarrhea with elevated BUN and creatinine and also hypotension and AFib with rapid ventricular response. The patient is feeling slightly better, still complains of diarrhea. Denies any black stool. Denies any fever, cough or shortness of breath today. PHYSICAL EXAMINATION: VITAL SIGNS: As follows; blood pressure 149/70, pulse 78, respiration 18, temperature 98.1, saturation 93%. Height 5 feet 2 inches, weight is 131 pounds. GENERAL: Mrs. Najera is a 77 years old elderly female, moderately built, moderately nourished, not in distress. HEENT: Pupils normal and reactive to light and accommodation. Conjunctivae pink. Sclerae anicteric. Tongue is moist. Trachea is midline. LUNGS: Symmetric on both sides. Bilateral breath sounds present. Clear on auscultation. CVS: [place] at the fifth intercostal space, midclavicular line. S1, S2 audible. No murmur or gallop. ABDOMEN: Normal in appearance, soft, tympanic. No guarding. No rigidity. No hepatosplenomegaly. [employer] PORTAL DEVELOPER: The patient is alert, awake and oriented x 2 to 3. Sensory and motor system is grossly within normal limits. EXTREMITIES: No cyanosis, no clubbing, no edema. MEDICATIONS: Her current medications include as follows; Carafate 1 gm p.o. b.i.d., clonidine 0.2 mg p.o. q. 8 hours, ciprofloxacin 200 mg q. 12 hours, aspirin 81 mg p.o. daily, Flagyl 500 mg IV piggyback q .8 hours, glipizide 10 mg p.o. daily, Imdur 30 mg p.o. daily, Januvia 100 mg p.o. daily, Lasix 40 mg p.o. daily, metoprolol 100 mg p.o. q. 12 hours, Lovenox 30 mg subcu daily, amlodipine 10 mg daily, pravastatin 40 mg p.o. daily, Questran 4 gm p.o. daily, doxepin 10 mg p.o. at bedtime, Tylenol and Zofran 4 mg IV q. 4 hours p.r.n. LABORATORY DATA: Include as follows as of 05/24/2017; WBC 4.6, hemoglobin 10.2, hematocrit is 31.6, platelets 203. Sodium 148, potassium 4.1, chloride 101, CO2 24, BUN 27, creatinine 1.9, glucose 123, calcium 7.6. Stool C. diff toxin was negative. Other reports, stool for ova and parasites negative. Stool cultures so far no Salmonella, shigella, Campylobacter isolated. IMPRESSION: In summary, Mrs. Najera is a 77 years old elderly female with hypertension, diabetes, hyperlipidemia, atrial fibrillation, chronic low back pain, anxiety, arthritis, asthma with nausea, vomiting and diarrhea. 1. Chronic kidney disease stage III and acute renal failure, chronic kidney disease most likely secondary to intravascular depletion. 2. Hypernatremia most likely secondary to intravascular depletion. PLAN: Continue IV fluids and continue to monitor BMP. I agree with Pippa as stool for were positive. Cannot rule out bacterial infection or viral enteritis. We will follow with you. Case discussed with the nurse practitioner in rounds. Thank you for allowing me to participate in your patient's care. Sonido Miguel MD
== END 2017-05-25 16:05 | DRG 392 ==
LOC: H.ER 16:11 → H.ERHOLD 22:39 → H.TEL 05-22 16:01 → OBSVTOIN 05-22 22:47
PROVIDERS: ADMIT Internal Medicine; ATTEND Internal Medicine
DX: A09 Infectious gastroenteritis and colitis, unspecified (principal); E87.0 Hyperosmolality and hypernatremia; I95.9 Hypotension, unspecified; E11.22 Type 2 diabetes mellitus with diabetic chronic kidney disease; I27.20 Pulmonary hypertension, unspecified; I13.0 Hypertensive heart and chronic kidney disease with heart failure and stage 1 through stage 4 chronic kidney disease, or unspecified chronic kidney disease; N17.9 Acute kidney failure, unspecified; N18.4 Chronic kidney disease, stage 4 (severe); I48.91 Unspecified atrial fibrillation; I50.22 Chronic systolic (congestive) heart failure; D63.1 Anemia in chronic kidney disease; D64.9 Anemia, unspecified; E86.0 Dehydration; K29.70 Gastritis, unspecified, without bleeding; M19.90 Unspecified osteoarthritis, unspecified site; M81.0 Age-related osteoporosis without current pathological fracture; Z79.82 Long term (current) use of aspirin; Z87.01 Personal history of pneumonia (recurrent); Z90.49 Acquired absence of other specified parts of digestive tract; Z95.5 Presence of coronary angioplasty implant and graft; F32.9 Major depressive disorder, single episode, unspecified; J40 Bronchitis, not specified as acute or chronic; K82.9 Disease of gallbladder, unspecified; Z79.84 Long term (current) use of oral hypoglycemic drugs; Z79.899 Other long term (current) drug therapy; M54.5 Low back pain; R00.0 Tachycardia, unspecified; R26.81 Unsteadiness on feet; R74.8 Abnormal levels of other serum enzymes; E78.00 Pure hypercholesterolemia, unspecified; E78.5 Hyperlipidemia, unspecified; F41.9 Anxiety disorder, unspecified; G89.29 Other chronic pain; I08.0 Rheumatic disorders of both mitral and aortic valves; I25.10 Atherosclerotic heart disease of native coronary artery without angina pectoris; J44.9 Chronic obstructive pulmonary disease, unspecified

== ENCOUNTER 2017-05-25 14:40 | Inpatient (IN) | payer OTHER, MEDICAID ==
[2017-05-25 15:03] VITALS: BMI 23.9
[2017-05-25] MEDS ORDERED: Dextrose 50% SYRINGE Inj (50 ml) IV PRN (18:09)
[2017-05-25] MEDS ORDERED: Glucagon Recombinant 1 mg Inj IM PRN (18:09)
[2017-05-25 18:21] VITALS: RESP 20
[2017-05-25] MEDS: Insulin Regular 100 units/ml SC SCH (21:15)
[2017-05-26] MEDS: Insulin Regular 100 units/ml SC SCH ×4 (06:35→21:38)
[2017-05-26] MEDS: Pantoprazole 40 mg EC Tab PO SCH (09:06)
[2017-05-26] MEDS: Cholestyramine 4 gm/Pkt UD PO SCH (09:06)
[2017-05-26] MEDS: Pravastatin Sodium 40 MG TAB PO SCH (09:09)
[2017-05-26] MEDS: Enoxaparin 30 mg Syringe SC SCH (09:09)
--- NOTE | 2017-05-26 10:01 | HP ---
CHIEF COMPLAINT: The patient was admitted from medical floor after treatment of gastroenteritis. HISTORY OF PRESENT ILLNESS: This is a 77-year-old female with known case of diabetes, hypertension, coronary artery disease, renal insufficiency, and arthritis, who was admitted to medical floor for gastroenteritis, which was treated and after stabilized, the patient was transferred to Transitional Care Unit for optimization and completion of treatment. Currently, the patient complaints of shoulder pain, but denies any abdominal pain, nausea, vomiting, diarrhea or constipation. REVIEW OF SYSTEMS: Review of systems of all other organ system is unremarkable. PAST MEDICAL HISTORY: Significant for diabetes, hypertension, coronary artery disease, arthritis, and renal insufficiency. PAST SURGICAL HISTORY: Unremarkable. PERSONAL HISTORY: The patient is currently nonsmoker and nondrinker. No substance abuse. MEDICATIONS: The patient is on multiple medications as per reconciliation sheet, which was reviewed and ordered. FAMILY HISTORY: Noncontributory. ALLERGIES: THE PATIENT IS NOT ALLERGIC TO ANY MEDICATIONS. PHYSICAL EXAMINATION: GENERAL: A well-built and well-nourished, chronically sick-looking elderly female in no acute distress. VITAL SIGNS: Temperature afebrile, pulse 88, respirations 18, and blood pressure 136/76. HEENT: Pupils are reacting to light. No JVD. No thyromegaly. No lymphadenopathy. No nystagmus. Normocephalic and atraumatic skull. HEART: S1 and S2, normal and regular. No significant murmur, gallop or rub is heard. LUNGS: Shows good bilateral air exchange. No rales or rhonchi. ABDOMEN: Soft and nontender. No organomegaly. No fluid. Bowel sounds are present and normal. No sign of acute abdomen. No guarding. No rigidity. No rebound. EXTREMITIES: No calf swelling. No tenderness. No acute ischemia. CENTRAL NERVOUS SYSTEM: Essentially unchanged from the patient's usual exam. There is no sign of any acute gross focal, motor or sensory neurological deficits. DIAGNOSTIC DATA: Available diagnostic data reviewed overall. ADMITTING IMPRESSION: Gastroenteritis, chronic renal insufficiency, diabetes type 2, and hypertension. PLAN: As ordered. Case and plan discussed with the patient. Manpreet Austin MD [facility] # [id number]
[2017-05-27] MEDS: Insulin Regular 100 units/ml SC SCH ×4 (07:06→21:45)
[2017-05-27] MEDS: Pantoprazole 40 mg EC Tab PO SCH (08:28)
[2017-05-27] MEDS: Cholestyramine 4 gm/Pkt UD PO SCH (08:28)
[2017-05-27] MEDS: Pravastatin Sodium 40 MG TAB PO SCH (08:35)
[2017-05-27] MEDS: Enoxaparin 30 mg Syringe SC SCH (08:35)
--- NOTE | 2017-05-27 08:38 | PN ---
DATE: 05/27/2017 SUBJECTIVE: The patient is seen and examined. Interim events noted. The patient remains in Transitional Care Unit. The patient feels okay. Pain is adequately controlled. No chest pain or shortness of breath. PHYSICAL EXAMINATION: GENERAL: The patient is in no acute distress. VITAL SIGNS: Stable. HEART: S1 and S2, normal and regular. LUNGS: Good bilateral air exchange. ABDOMEN: Soft and nontender. No organomegaly. No fluid. No sign of acute abdomen. No guarding. No rigidity. No rebound. Bowel sounds are present and normal. EXTREMITIES: No edema. No calf swelling. No tenderness. No acute ischemia. CENTRAL NERVOUS SYSTEM: Essentially unchanged. DIAGNOSTIC DATA: Available diagnostic data reviewed. PLAN: Overall, the patient is medically stable. Plan as ordered. Manpreet Austin MD
[2017-05-28] MEDS: Insulin Regular 100 units/ml SC SCH ×4 (06:35→22:25)
[2017-05-28] MEDS: Enoxaparin 30 mg Syringe SC SCH (08:21)
[2017-05-28] MEDS: Pantoprazole 40 mg EC Tab PO SCH (08:22)
[2017-05-28] MEDS: Cholestyramine 4 gm/Pkt UD PO SCH (08:22)
[2017-05-28] MEDS: Pravastatin Sodium 40 MG TAB PO SCH (08:22)
--- NOTE | 2017-05-28 08:24 | PN ---
DATE: 05/28/2017 SUBJECTIVE: The patient is seen and examined. Interim events noted. The patient remains in Transitional Care Unit. The patient has periods of confusion. No chest pain or shortness of breath. PHYSICAL EXAMINATION: GENERAL: The patient is in no acute distress. VITAL SIGNS: Stable. HEART: S1 and S2, normal and regular. LUNGS: Good bilateral air exchange. ABDOMEN: Soft and nontender. EXTREMITIES: No edema. No calf swelling. No tenderness. No acute ischemia. ADMINISTRATION MANAGER: Essentially unchanged. DIAGNOSTIC DATA: Available diagnostic data reviewed. Stool for C. difficile toxin is negative. PLAN: Overall, the patient is medically stable. Confusion seems to be part of hospital psychosis. No sign of acute neuro deficits . Plan as ordered. Manpreet Austin MD
[2017-05-28] MEDS ORDERED: Bismuth Subsalicylate 262 mg/15 ml Sus (240 ml) PO PRN (13:30)
[2017-05-29] MEDS: Insulin Regular 100 units/ml SC SCH ×4 (06:45→21:21)
[2017-05-29] MEDS: Enoxaparin 30 mg Syringe SC SCH (08:42)
[2017-05-29] MEDS: Cholestyramine 4 gm/Pkt UD PO SCH (08:44)
[2017-05-29] MEDS: Pantoprazole 40 mg EC Tab PO SCH (08:45)
--- NOTE | 2017-05-29 08:55 | CP.PCM.PN ---
Subjective - Date & Time of Evaluation Date of Evaluation: 05/29/17 Time of Evaluation: 07:45 - Subjective Subjective: Patient evaluated with Dr Austin during morning rounds. No acute events overnight. Still c/o diarrhea multiple times a day NBNM. Has no other complains. Objective - Vital Signs/Intake and Output Vital Signs (last 24 hours): Temp Pulse Resp BP Pulse Ox 97.9 F 67 20 136/71 99 05/29/17 07:46 05/29/17 07:46 05/29/17 07:46 05/29/17 07:46 05/29/17 07:46 - Medications Medications: Current Medications Acetaminophen (Tylenol 325mg Tab) 650 mg PO Q6H PRN PRN Reason: Pain, Mild (1-3) Amlodipine Besylate (Norvasc) 10 mg PO DAILY [facility] Last Admin: 05/28/17 08:22 Dose: 10 mg Aspirin (Ecotrin) 81 mg PO DAILY [facility] Last Admin: 05/28/17 08:20 Dose: 81 mg Bismuth Subsalicylate (Pepto-Bismol) 524 mg PO Q1 PRN PRN Reason: Diarrhea Cholestyramine Resin (Questran) 4 gm PO DAILY [facility] Last Admin: 05/28/17 08:22 Dose: 4 gm Ciprofloxacin (Cipro) 250 mg PO Q12 [facility] PRN Reason: Protocol Last Admin: 05/28/17 21:30 Dose: 250 mg Clonidine HCl (Catapres) 0.2 mg PO Q8@0100,0900,1700 [facility] Last Admin: 05/29/17 02:18 Dose: 0.2 mg Dextrose (Dextrose 50% Inj) 0 ml IV STAT PRN; Protocol PRN Reason: Hypoglycemia Protocol Dextrose (Glutose 15) 0 gm PO ONCE PRN; Protocol PRN Reason: Hypoglycemia Protocol Doxepin HCl (Sinequan) 10 mg PO HS [facility] Last Admin: 05/28/17 22:21 Dose: Not Given Enoxaparin Sodium (Lovenox) 30 mg SC DAILY [facility] PRN Reason: Protocol Last Admin: 05/28/17 08:21 Dose: 30 mg Furosemide (Lasix) 40 mg PO DAILY [facility] Last Admin: 05/28/17 08:21 Dose: 40 mg Glipizide (Glucotrol) 10 mg PO DAILY [facility] Last Admin: 05/28/17 08:21 Dose: 10 mg Glucagon (Glucagen Diagnostic Kit) 0 mg IM STAT PRN; Protocol PRN Reason: Hypoglycemia Protocol Insulin Human Regular (Humulin R) 0 units SC ACHS [facility] PRN Reason: Protocol Last Admin: 05/29/17 06:45 Dose: 1 u Isosorbide Mononitrate (Imdur Er) 30 mg PO DAILY [facility] Last Admin: 05/28/17 08:21 Dose: 30 mg Metoprolol Tartrate (Lopressor) 100 mg PO Q12H [facility] Last Admin: 05/29/17 06:00 Dose: 100 mg Metronidazole (Flagyl) 500 mg PO Q8 [facility] PRN Reason: Protocol Last Admin: 05/29/17 00:46 Dose: 500 mg Nystatin (Nystop Topical Powder) 1 applic TOP TID [facility] Last Admin: 05/28/17 16:09 Dose: 1 u Pantoprazole Sodium (Protonix Ec Tab) 40 mg PO DAILY [facility] Last Admin: 05/28/17 08:22 Dose: 40 mg Pravastatin Sodium (Pravachol) 40 mg PO DAILY [facility] Last Admin: 05/28/17 08:22 Dose: 40 mg Sitagliptin Phosphate (Januvia) 100 mg PO DAILY [facility] Last Admin: 05/28/17 08:21 Dose: 100 mg Sucralfate (Carafate Tab) 1 gm PO BID [facility] Last Admin: 05/28/17 16:09 Dose: 1 gm Tramadol HCl (Ultram) 50 mg PO Q6 PRN PRN Reason: Pain, severe (8-10) Last Admin: 05/26/17 23:39 Dose: 50 mg - Constitutional Appears: Non-toxic, No Acute Distress - Head Exam Head Exam: NORMAL INSPECTION - Eye Exam Eye Exam: EOMI, PERRL - ENT Exam ENT Exam: Mucous Membranes Moist - Respiratory Exam Respiratory Exam: Clear to Ausculation Bilateral, NORMAL BREATHING PATTERN - Cardiovascular Exam Cardiovascular Exam: REGULAR RHYTHM, +S1, +S2. absent: Gallop - GI/Abdominal Exam GI & Abdominal Exam: Soft, Tenderness (mild. RUQ), Normal Bowel Sounds. absent : Guarding, Rebound - Extremities Exam Extremities Exam: Full ROM. absent: Calf Tenderness - Back Exam Back Exam: absent: CVA tenderness (L), CVA tenderness (R) - Neurological Exam Neurological Exam: Alert, Awake, Oriented x3 - Psychiatric Exam Psychiatric exam: Normal Affect, Normal Mood - Skin Skin Exam: Normal Color, Warm Assessment and Plan - Assessment and Plan (Free Text) Assessment: Deconditioning: C/W PT/OT services Stable Persistent diarrhea: Patient on Cipro/Flagyl and probiotics Imodium Po once GI consult: will f/u recs Afebrile
[2017-05-29] MEDS: Pravastatin Sodium 40 MG TAB PO SCH (09:00)
--- NOTE | 2017-05-29 13:17 | CP.PCM.CON ---
History of Present Illness - History of Present Illness History of Present Illness: pt is 77 ys old female with previous diagnosis of depression, admitted to hospital for diarrhea, reportedly pt has been experiencing visual hallucinations , has been on antidepressant sinequan , as per pt for the past two days when the antidepressant was stopped, the hallucinations disappeared, possible due to the anticholinergic effect of the medicine on evaluation pt reported she has been depressed for past two years as she has lost her older son, her and her nephew all at the same time, reported feeling lonely and sad, poor sleep, poor appetite dened any current suicidal or homicidal ideations, no current perceptual disturbances, no hx of previous psychiatric hospitalizations Past Patient History - Past Medical History & Family History Past Medical History?: Yes - Past Social History Smoking Status: Never Smoked - CARDIAC Hx Atrial Fibrillation: Yes Hx Cardia Arrhythmia: Yes Hx Congestive Heart Failure: Yes Hx Hypercholesterolemia: Yes Hx Hypertension: Yes Hx Peripheral Edema: Yes - PULMONARY Hx Asthma: No Hx Bronchitis: Yes Hx Chronic Obstructive Pulmonary Disease (COPD): Yes Hx Pneumonia: Yes - NEUROLOGICAL Hx Neurological Disorder: No - HEENT Hx HEENT Problems: No - RENAL Hx Chronic Kidney Disease: Yes Hx Dialysis: No - ENDOCRINE/METABOLIC Hx Endocrine Disorders: Yes Hx Diabetes Mellitus Type 2: Yes - HEMATOLOGICAL/ONCOLOGICAL Hx Anemia: Yes Hx Human Immunodeficiency Virus (HIV): No - INTEGUMENTARY Hx Dermatological Problems: No - MUSCULOSKELETAL/RHEUMATOLOGICAL Hx Arthritis: Yes Hx Falls: Yes Hx Osteoporosis: Yes - GASTROINTESTINAL Hx Gall Bladder Disease: Yes Hx Gastritis: Yes - GENITOURINARY/GYNECOLOGICAL Hx Genitourinary Disorders: No - PSYCHIATRIC Hx Anxiety: Yes Hx Depression: Yes Hx Substance Use: No - SURGICAL HISTORY Hx Cholecystectomy: Yes Hx Coronary Stent: Yes - ANESTHESIA Hx Anesthesia: Yes Hx Anesthesia Reactions: No Hx Malignant Hyperthermia: No Meds Allergies/Adverse Reactions: Allergies Allergy/AdvReac Type Severity Reaction Status Date / Time alprazolam [From Xanax] Allergy SWELLING Verified 05/25/17 15:03 hydromorphone HCl Allergy RASH Verified 05/25/17 15:03 [From Dilaudid] zolpidem tartrate Allergy RASH Verified 05/25/17 15:03 [From Ambien] - Medications Medications: Current Medications Acetaminophen (Tylenol 325mg Tab) 650 mg PO Q6H PRN PRN Reason: Pain, Mild (1-3) Amlodipine Besylate (Norvasc) 10 mg PO DAILY [facility] Last Admin: 05/29/17 08:37 Dose: 10 mg Aspirin (Ecotrin) 81 mg PO DAILY [facility] Last Admin: 05/29/17 08:46 Dose: 81 mg Bismuth Subsalicylate (Pepto-Bismol) 524 mg PO Q1 PRN PRN Reason: Diarrhea Last Admin: 05/29/17 09:25 Dose: 524 mg Cholestyramine Resin (Questran) 4 gm PO DAILY [facility] Last Admin: 05/29/17 08:44 Dose: 4 gm Ciprofloxacin (Cipro) 250 mg PO Q12 [facility] PRN Reason: Protocol Last Admin: 05/29/17 08:44 Dose: 250 mg Clonidine HCl (Catapres) 0.2 mg PO Q8@0100,0900,1700 [facility] Last Admin: 05/29/17 08:42 Dose: 0.2 mg Dextrose (Dextrose 50% Inj) 0 ml IV STAT PRN; Protocol PRN Reason: Hypoglycemia Protocol Dextrose (Glutose 15) 0 gm PO ONCE PRN; Protocol PRN Reason: Hypoglycemia Protocol Doxepin HCl (Sinequan) 10 mg PO HS [facility] Last Admin: 05/28/17 22:21 Dose: Not Given Enoxaparin Sodium (Lovenox) 30 mg SC DAILY [facility] PRN Reason: Protocol Last Admin: 05/29/17 08:42 Dose: 30 mg Furosemide (Lasix) 40 mg PO DAILY [facility] Last Admin: 05/29/17 08:47 Dose: 40 mg Glipizide (Glucotrol) 10 mg PO DAILY [facility] Last Admin: 05/29/17 08:48 Dose: 10 mg Glucagon (Glucagen Diagnostic Kit) 0 mg IM STAT PRN; Protocol PRN Reason: Hypoglycemia Protocol Insulin Human Regular (Humulin R) 0 units SC [facility] PRN Reason: Protocol Last Admin: 05/29/17 06:45 Dose: 1 u Isosorbide Mononitrate (Imdur Er) 30 mg PO DAILY [facility] Last Admin: 05/29/17 08:47 Dose: 30 mg Metoprolol Tartrate (Lopressor) 100 mg PO Q12H [facility] Last Admin: 05/29/17 06:00 Dose: 100 mg Metronidazole (Flagyl) 500 mg PO Q8 [facility] PRN Reason: Protocol Last Admin: 05/29/17 08:48 Dose: 500 mg Nystatin (Nystop Topical Powder) 1 applic TOP TID [facility] Last Admin: 05/29/17 08:45 Dose: 1 u Pantoprazole Sodium (Protonix Ec Tab) 40 mg PO DAILY [facility] Last Admin: 05/29/17 08:45 Dose: 40 mg Pravastatin Sodium (Pravachol) 40 mg PO DAILY [facility] Last Admin: 05/28/17 08:22 Dose: 40 mg Sitagliptin Phosphate (Januvia) 100 mg PO DAILY [facility] Last Admin: 05/29/17 08:45 Dose: 100 mg Sucralfate (Carafate Tab) 1 gm PO BID [facility] Last Admin: 05/29/17 08:37 Dose: 1 gm Tramadol HCl (Ultram) 50 mg PO Q6 PRN PRN Reason: Pain, severe (8-10) Last Admin: 05/29/17 09:27 Dose: 50 mg Physical Exam - Psychiatric Exam Additional comments: pt seen in bed bed calm cooperative good eye cotact, mood reported sad affect constricted thought form coherent denied any current suicidal or homicidal ideations denied perceptual disturbances, alert awake ox3 fair insight and judgement Results - Vital Signs Recent Vital Signs: Last Vital Signs Temp 97.9 F 05/29/17 07:46 Pulse 67 05/29/17 08:42 Resp 20 05/29/17 07:46 BP 136/71 05/29/17 08:47 Pulse Ox 99 05/29/17 07:46 - Labs Labs: Laboratory Results - last 24 hr 05/28/17 05/28/17 05/29/17 15:47 20:42 05:38 POC Glucose (mg/dL) 132 H 155 H 156 H 05/29/17 10:57 POC Glucose (mg/dL) 247 H Assessment & Plan - Assessment and Plan (Free Text) Assessment: major depression continuous moderate Plan: start remeron 7.5mg qhs
[2017-05-29] MEDS: Saccharomyces Boulardi 250 mg Cap PO SCH (16:43)
[2017-05-30] MEDS: Insulin Regular 100 units/ml SC SCH ×4 (06:45→23:46)
--- NOTE | 2017-05-30 08:15 | PN ---
DATE: 05/30/2017 SUBJECTIVE: The patient is seen and examined. Interim events noted. The patient feels much better. Diarrhea improved. No chest pain or shortness of breath. The patient doing well with physical therapy. PHYSICAL EXAMINATION: GENERAL: The patient is in no acute distress. VITAL SIGNS: Stable. HEART: S1 and S2, normal and regular. LUNGS: Good bilateral air exchange. ABDOMEN: Soft and nontender. No organomegaly noted. Bowel sounds are plus and normal. EXTREMITIES: No edema. No calf swelling. No tenderness. No acute ischemia. DIGESTER COOK: Exam is essentially unchanged. DIAGNOSTIC DATA: Available diagnostic data reviewed. PLAN: Overall, the patient's general medical condition is stable. Plan as ordered. Manpreet Austin MD
[2017-05-30] MEDS: Enoxaparin 30 mg Syringe SC SCH (09:43)
[2017-05-30] MEDS: Saccharomyces Boulardi 250 mg Cap PO SCH ×2 (09:55→16:27)
[2017-05-30] MEDS: Pantoprazole 40 mg EC Tab PO SCH (09:56)
[2017-05-30] MEDS: Pravastatin Sodium 40 MG TAB PO SCH (09:56)
[2017-05-30] MEDS: Cholestyramine 4 gm/Pkt UD PO SCH (09:58)
--- NOTE | 2017-05-31 00:01 | CP.PCM.CON ---
History of Present Illness - History of Present Illness History of Present Illness: 77 yo female with DM, htn, and hld with several episodes of diarrhea yesterday.Today her nurse says the diarrhea was minimal. Recently hospitalized with diarrhea and was treated with cholestyramine and antibiotics Review of Systems - Constitutional Constitutional: absent: Daytime Sleepiness - EENT Eyes: absent: Blurred Vision Ears: absent: Decreased Hearing Nose/Mouth/Throat: absent: Epistaxis - Breasts Breasts: absent: Change in Shape - Cardiovascular Cardiovascular: absent: Chest Pain - Respiratory Respiratory: absent: Dyspnea - Gastrointestinal Gastrointestinal: absent: Abdominal Pain - Genitourinary Genitourinary: absent: Hematuria Past Patient History - Past Medical History & Family History Past Medical History?: Yes - Past Social History Smoking Status: Never Smoked - CARDIAC Hx Atrial Fibrillation: Yes Hx Cardia Arrhythmia: Yes Hx Congestive Heart Failure: Yes Hx Hypercholesterolemia: Yes Hx Hypertension: Yes Hx Peripheral Edema: Yes - PULMONARY Hx Asthma: No Hx Bronchitis: Yes Hx Chronic Obstructive Pulmonary Disease (COPD): Yes Hx Pneumonia: Yes - NEUROLOGICAL Hx Neurological Disorder: No - HEENT Hx HEENT Problems: No - RENAL Hx Chronic Kidney Disease: Yes Hx Dialysis: No - ENDOCRINE/METABOLIC Hx Endocrine Disorders: Yes Hx Diabetes Mellitus Type 2: Yes - HEMATOLOGICAL/ONCOLOGICAL Hx Anemia: Yes Hx Human Immunodeficiency Virus (HIV): No - INTEGUMENTARY Hx Dermatological Problems: No - MUSCULOSKELETAL/RHEUMATOLOGICAL Hx Arthritis: Yes Hx Falls: Yes Hx Osteoporosis: Yes - GASTROINTESTINAL Hx Gall Bladder Disease: Yes Hx Gastritis: Yes - GENITOURINARY/GYNECOLOGICAL Hx Genitourinary Disorders: No - PSYCHIATRIC Hx Anxiety: Yes Hx Depression: Yes Hx Substance Use: No - SURGICAL HISTORY Hx Cholecystectomy: Yes Hx Coronary Stent: Yes - ANESTHESIA Hx Anesthesia: Yes Hx Anesthesia Reactions: No Hx Malignant Hyperthermia: No Meds Allergies/Adverse Reactions: Allergies Allergy/AdvReac Type Severity Reaction Status Date / Time alprazolam [From Xanax] Allergy SWELLING Verified 05/25/17 15:03 hydromorphone HCl Allergy RASH Verified 05/25/17 15:03 [From Dilaudid] zolpidem tartrate Allergy RASH Verified 05/25/17 15:03 [From Ambien] - Medications Medications: Current Medications Acetaminophen (Tylenol 325mg Tab) 650 mg PO Q6H PRN PRN Reason: Pain, Mild (1-3) Amlodipine Besylate (Norvasc) 10 mg PO DAILY [facility] Last Admin: 05/30/17 09:57 Dose: 10 mg Aspirin (Ecotrin) 81 mg PO DAILY [facility] Last Admin: 05/30/17 09:56 Dose: 81 mg Bismuth Subsalicylate (Pepto-Bismol) 524 mg PO Q1 PRN PRN Reason: Diarrhea Last Admin: 05/29/17 09:25 Dose: 524 mg Cholestyramine Resin (Questran) 4 gm PO DAILY [facility] Last Admin: 05/30/17 09:58 Dose: 4 gm Clonidine HCl (Catapres) 0.2 mg PO Q8@0100,0900,1700 [facility] Last Admin: 05/30/17 16:27 Dose: 0.2 mg Dextrose (Dextrose 50% Inj) 0 ml IV STAT PRN; Protocol PRN Reason: Hypoglycemia Protocol Dextrose (Glutose 15) 0 gm PO ONCE PRN; Protocol PRN Reason: Hypoglycemia Protocol Enoxaparin Sodium (Lovenox) 30 mg SC DAILY [facility] PRN Reason: Protocol Last Admin: 05/30/17 09:43 Dose: 30 mg Furosemide (Lasix) 40 mg PO DAILY [facility] Last Admin: 05/30/17 09:53 Dose: 40 mg Glipizide (Glucotrol) 10 mg PO DAILY [facility] Last Admin: 05/30/17 09:00 Dose: 10 mg Glucagon (Glucagen Diagnostic Kit) 0 mg IM STAT PRN; Protocol PRN Reason: Hypoglycemia Protocol Insulin Human Regular (Humulin R) 0 units SC [facility] PRN Reason: Protocol Last Admin: 05/30/17 23:46 Dose: Not Given Isosorbide Mononitrate (Imdur Er) 30 mg PO DAILY [facility] Last Admin: 05/30/17 09:53 Dose: 30 mg Loperamide HCl (Imodium) 2 mg PO QID PRN PRN Reason: Diarrhea Metoprolol Tartrate (Lopressor) 100 mg PO Q12H [facility] Last Admin: 05/30/17 18:11 Dose: Not Given Mirtazapine (Remeron) 7.5 mg PO HS [facility] Last Admin: 05/30/17 21:36 Dose: 7.5 mg Nystatin (Nystop Topical Powder) 1 applic TOP TID [facility] Last Admin: 05/30/17 16:26 Dose: 1 applic Pantoprazole Sodium (Protonix Ec Tab) 40 mg PO DAILY [facility] Last Admin: 05/30/17 09:56 Dose: 40 mg Pravastatin Sodium (Pravachol) 40 mg PO DAILY [facility] Last Admin: 05/30/17 09:56 Dose: 40 mg Saccharomyces Boulardii (Florastor) 250 mg PO BID [facility] Last Admin: 05/30/17 16:27 Dose: 250 mg Sitagliptin Phosphate (Januvia) 100 mg PO DAILY [facility] Last Admin: 05/30/17 09:00 Dose: 100 mg Sucralfate (Carafate Tab) 1 gm PO BID [facility] Last Admin: 05/29/17 08:37 Dose: 1 gm Tramadol HCl (Ultram) 50 mg PO Q6 PRN PRN Reason: Pain, severe (8-10) Last Admin: 05/29/17 23:05 Dose: 50 mg Physical Exam - Head Exam Head Exam: NORMAL INSPECTION - Eye Exam Eye Exam: EOMI Pupil Exam: PERRL Results - Vital Signs Recent Vital Signs: Last Vital Signs Temp 97.4 F L 05/30/17 16:31 Pulse 61 05/30/17 18:11 Resp 20 05/30/17 16:31 BP 91/52 L 05/30/17 18:11 Pulse Ox 97 05/30/17 16:31 - Labs Labs: Laboratory Results - last 24 hr 05/30/17 05/30/17 05/30/17 05:52 12:07 16:00 POC Glucose (mg/dL) 145 H 243 H 128 H 05/30/17 20:14 POC Glucose (mg/dL) 263 H Assessment & Plan (1) Chronic diastolic (congestive) heart failure Assessment and Plan: Feeling better. No diarrhea this morning. Will stop antibiotics . Status: Chronic
[2017-05-31] MEDS: Insulin Regular 100 units/ml SC SCH ×4 (06:47→22:21)
[2017-05-31] MEDS: Enoxaparin 30 mg Syringe SC SCH (08:55)
[2017-05-31] MEDS: Cholestyramine 4 gm/Pkt UD PO SCH (08:59)
[2017-05-31] MEDS: Pantoprazole 40 mg EC Tab PO SCH (08:59)
[2017-05-31] MEDS: Saccharomyces Boulardi 250 mg Cap PO SCH ×2 (08:59→16:40)
[2017-05-31] MEDS: Pravastatin Sodium 40 MG TAB PO SCH (08:59)
--- NOTE | 2017-05-31 15:05 | CP.PCM.CON ---
History of Present Illness - History of Present Illness History of Present Illness: requested to re evaluate pt for increased drowziness with remeron discussed with pt on lexaPRO 5MG QHS AND discontinue remeron WILL RE EVALUATE PT AND MONITOR FOR PSYCHOPHARMACOLOGICAL EFFECTS AND SIDE EFFECT PROFILE Past Patient History - Past Medical History & Family History Past Medical History?: Yes - Past Social History Smoking Status: Never Smoked - CARDIAC Hx Atrial Fibrillation: Yes Hx Cardia Arrhythmia: Yes Hx Congestive Heart Failure: Yes Hx Hypercholesterolemia: Yes Hx Hypertension: Yes Hx Peripheral Edema: Yes - PULMONARY Hx Asthma: No Hx Bronchitis: Yes Hx Chronic Obstructive Pulmonary Disease (COPD): Yes Hx Pneumonia: Yes - NEUROLOGICAL Hx Neurological Disorder: No - HEENT Hx HEENT Problems: No - RENAL Hx Chronic Kidney Disease: Yes Hx Dialysis: No - ENDOCRINE/METABOLIC Hx Endocrine Disorders: Yes Hx Diabetes Mellitus Type 2: Yes - HEMATOLOGICAL/ONCOLOGICAL Hx Anemia: Yes Hx Human Immunodeficiency Virus (HIV): No - INTEGUMENTARY Hx Dermatological Problems: No - MUSCULOSKELETAL/RHEUMATOLOGICAL Hx Arthritis: Yes Hx Falls: Yes Hx Osteoporosis: Yes - GASTROINTESTINAL Hx Gall Bladder Disease: Yes Hx Gastritis: Yes - GENITOURINARY/GYNECOLOGICAL Hx Genitourinary Disorders: No - PSYCHIATRIC Hx Anxiety: Yes Hx Depression: Yes Hx Substance Use: No - SURGICAL HISTORY Hx Cholecystectomy: Yes Hx Coronary Stent: Yes - ANESTHESIA Hx Anesthesia: Yes Hx Anesthesia Reactions: No Hx Malignant Hyperthermia: No Meds Allergies/Adverse Reactions: Allergies Allergy/AdvReac Type Severity Reaction Status Date / Time alprazolam [From Xanax] Allergy SWELLING Verified 05/25/17 15:03 hydromorphone HCl Allergy RASH Verified 05/25/17 15:03 [From Dilaudid] zolpidem tartrate Allergy RASH Verified 05/25/17 15:03 [From Ambien] - Medications Medications: Current Medications Acetaminophen (Tylenol 325mg Tab) 650 mg PO Q6H PRN PRN Reason: Pain, Mild (1-3) Amlodipine Besylate (Norvasc) 10 mg PO DAILY [facility] Last Admin: 05/31/17 08:57 Dose: 10 mg Aspirin (Ecotrin) 81 mg PO DAILY [facility] Last Admin: 05/31/17 08:59 Dose: 81 mg Bismuth Subsalicylate (Pepto-Bismol) 524 mg PO Q1 PRN PRN Reason: Diarrhea Last Admin: 05/29/17 09:25 Dose: 524 mg Cholestyramine Resin (Questran) 4 gm PO DAILY [facility] Last Admin: 05/31/17 08:59 Dose: 4 gm Clonidine HCl (Catapres) 0.2 mg PO Q8@0100,0900,1700 [facility] Last Admin: 05/31/17 08:57 Dose: 0.2 mg Dextrose (Dextrose 50% Inj) 0 ml IV STAT PRN; Protocol PRN Reason: Hypoglycemia Protocol Dextrose (Glutose 15) 0 gm PO ONCE PRN; Protocol PRN Reason: Hypoglycemia Protocol Enoxaparin Sodium (Lovenox) 30 mg SC DAILY [facility] PRN Reason: Protocol Last Admin: 05/31/17 08:55 Dose: 30 mg Furosemide (Lasix) 40 mg PO DAILY [facility] Last Admin: 05/31/17 08:58 Dose: 40 mg Glipizide (Glucotrol) 10 mg PO DAILY [facility] Last Admin: 05/31/17 08:59 Dose: 10 mg Glucagon (Glucagen Diagnostic Kit) 0 mg IM STAT PRN; Protocol PRN Reason: Hypoglycemia Protocol Insulin Human Regular (Humulin R) [address] [facility] PRN Reason: Protocol Last Admin: 05/31/17 13:00 Dose: 2 u Isosorbide Mononitrate (Imdur Er) 30 mg PO DAILY [facility] Last Admin: 05/31/17 08:59 Dose: 30 mg Loperamide HCl (Imodium) 2 mg PO QID PRN PRN Reason: Diarrhea Metoprolol Tartrate (Lopressor) 100 mg PO Q12H [facility] Last Admin: 05/31/17 06:54 Dose: 100 mg Nystatin (Nystop Topical Powder) 1 applic TOP TID [facility] Last Admin: 05/31/17 13:08 Dose: 1 applic Pantoprazole Sodium (Protonix Ec Tab) 40 mg PO DAILY [facility] Last Admin: 05/31/17 08:59 Dose: 40 mg Pravastatin Sodium (Pravachol) 40 mg PO DAILY [facility] Last Admin: 05/31/17 08:59 Dose: 40 mg Saccharomyces Boulardii (Florastor) 250 mg PO BID [facility] Last Admin: 05/31/17 08:59 Dose: 250 mg Sitagliptin Phosphate (Januvia) 100 mg PO DAILY [facility] Last Admin: 05/31/17 08:59 Dose: 100 mg Sucralfate (Carafate Tab) 1 gm PO BID [facility] Last Admin: 05/29/17 08:37 Dose: 1 gm Tramadol HCl (Ultram) 50 mg PO Q6 PRN PRN Reason: Pain, severe (8-10) Last Admin: 05/29/17 23:05 Dose: 50 mg Results - Vital Signs Recent Vital Signs: Last Vital Signs Temp 99.3 F 05/31/17 07:45 Pulse 80 05/31/17 08:57 Resp 20 05/31/17 07:45 BP 135/66 05/31/17 08:58 Pulse Ox 97 05/31/17 07:45 - Labs Labs: Laboratory Results - last 24 hr 05/30/17 05/30/17 05/31/17 16:00 20:14 05:18 POC Glucose (mg/dL) 128 H 263 H 199 H 05/31/17 12:08 POC Glucose (mg/dL) 238 H
[2017-06-01] MEDS: Insulin Regular 100 units/ml SC SCH ×4 (06:40→22:20)
[2017-06-01] MEDS: Enoxaparin 30 mg Syringe SC SCH (08:45)
[2017-06-01] MEDS: Pantoprazole 40 mg EC Tab PO SCH (08:46)
[2017-06-01] MEDS: Cholestyramine 4 gm/Pkt UD PO SCH (08:47)
[2017-06-01] MEDS: Saccharomyces Boulardi 250 mg Cap PO SCH ×2 (08:47→17:48)
[2017-06-01] MEDS: Pravastatin Sodium 40 MG TAB PO SCH (08:47)
--- NOTE | 2017-06-01 09:01 | PN ---
DATE: 05/31/2017 SUBJECTIVE: The patient is seen and examined. Interim events noted. Consults noted and appreciated. Gastroenterology followup and interventions noted and appreciated. The patient remains in Transitional Care Unit. The patient feels okay. No chest pain. No shortness of breath. No abdominal pain. No diarrhea. PHYSICAL EXAMINATION: GENERAL: The patient is in no acute distress. VITAL SIGNS: Stable. HEART: S1 and S2, normal and regular. LUNGS: Good bilateral air exchange. ABDOMEN: Soft and nontender. EXTREMITIES: No edema. No calf swelling. No tenderness. No acute ischemia. CENTRAL NERVOUS SYSTEM: Exam is essentially unchanged. DIAGNOSTIC DATA: Available diagnostic data reviewed. IMPRESSION AND PLAN: Overall, the patient's general medical condition is stable. Plan as ordered. Manpreet Austin MD
--- NOTE | 2017-06-01 09:39 | PN ---
DATE: 06/01/2017 SUBJECTIVE: The patient is seen and examined. Interim events noted. Consults noted and appreciated. The patient remains in Transitional Care Unit. The patient feels okay. Denies any specific complaints. No chest pain. No shortness of breath. Diarrhea improved. PHYSICAL EXAMINATION: GENERAL: The patient is in no acute distress. VITAL SIGNS: Stable. HEART: S1 and S2, normal and regular. LUNGS: Good bilateral air entry. ABDOMEN: Soft and nontender. EXTREMITIES: No edema. No calf swelling. No tenderness. No acute ischemia. CENTRAL NERVOUS SYSTEM: Exam is essentially unchanged. DIAGNOSTIC DATA: Available diagnostic data reviewed. PLAN: Gastroenterology followup and interventions noted and appreciated. Overall, the patient is clinically stable. Plan as ordered. Manpreet Austin MD
[2017-06-02] MEDS: Insulin Regular 100 units/ml SC SCH ×4 (07:54→22:19)
[2017-06-02] MEDS: Enoxaparin 30 mg Syringe SC SCH (08:18)
[2017-06-02] MEDS: Cholestyramine 4 gm/Pkt UD PO SCH (08:18)
[2017-06-02] MEDS: Pravastatin Sodium 40 MG TAB PO SCH (08:20)
[2017-06-02] MEDS: Pantoprazole 40 mg EC Tab PO SCH (08:21)
[2017-06-02] MEDS: Saccharomyces Boulardi 250 mg Cap PO SCH ×2 (08:22→16:32)
--- NOTE | 2017-06-02 08:32 | PN ---
DATE: 06/02/2017 SUBJECTIVE: The patient is seen and examined. Interim events noted. The patient remains in Transitional Care Unit. Feels okay. Denies any specific complaints. No chest pain. No shortness of breath. PHYSICAL EXAMINATION: GENERAL: The patient is in no acute distress. VITAL SIGNS: Stable. HEART: S1 and S2, normal and regular. LUNGS: Good bilateral air exchange. ABDOMEN: Soft and nontender. EXTREMITIES: No edema. No calf swelling. No tenderness. No acute ischemia. [employer]OVING [employer]ER: Essentially unchanged. DIAGNOSTIC DATA: Available diagnostic data reviewed. PLAN: we will monitor. Plan as ordered. Manpreet Austin MD
[2017-06-03] MEDS: Insulin Regular 100 units/ml SC SCH ×4 (06:44→22:46)
[2017-06-03 07:04] LABS: HEMOGLOBIN 10.8 g/dL (12.0-16.0); MEAN CELL VOLUME 91.3 fl (81.0-99.0); MEAN CORPUSCULAR HEMOGLOBIN 28.8 pg (27.0-31.0); MEAN CORPUSCULAR HGB CONC 31.6 g/dL (33.0-37.0); RBC 3.75 Mil/uL (3.80-5.20); WHITE BLOOD COUNT 4.7 K/uL (4.8-10.8)
[2017-06-03 07:20] LABS: ALBUMIN 3.3 g/dL (3.5-5.0); CALCIUM 8.6 mg/dL (8.4-10.2)
[2017-06-03] MEDS: Enoxaparin 30 mg Syringe SC SCH (08:15)
[2017-06-03] MEDS: Pravastatin Sodium 40 MG TAB PO SCH (08:15)
[2017-06-03] MEDS: Pantoprazole 40 mg EC Tab PO SCH (08:16)
--- NOTE | 2017-06-03 08:16 | PN ---
DATE: 06/03/2017 SUBJECTIVE: The patient is seen and examined. Interim events noted. The patient remains in Transitional Care Unit. She denies any specific complaints. No chest pain and no shortness of breath. No specific issue reported by nursing staff. PHYSICAL EXAMINATION: GENERAL: The patient is in no acute distress. VITAL SIGNS: Stable. HEART: S1 and S2, normal and regular. LUNGS: Good bilateral air exchange. ABDOMEN: Soft and nontender. EXTREMITIES: No edema. No calf swelling. No tenderness. No acute ischemia. CENTRAL NERVOUS SYSTEM: Exam is essentially unchanged. DIAGNOSTIC DATA: Available diagnostic data reviewed. IMPRESSION AND PLAN: Overall, the patient's general medical condition is stable. Plan as ordered. Manpreet Austin MD
[2017-06-03] MEDS: Cholestyramine 4 gm/Pkt UD PO SCH (08:17)
[2017-06-03] MEDS: Saccharomyces Boulardi 250 mg Cap PO SCH ×2 (08:17→16:58)
[2017-06-04] MEDS: Insulin Regular 100 units/ml SC SCH ×4 (06:44→21:10)
[2017-06-04] MEDS: Saccharomyces Boulardi 250 mg Cap PO SCH ×2 (08:38→17:43)
[2017-06-04] MEDS: Enoxaparin 30 mg Syringe SC SCH (08:38)
[2017-06-04] MEDS: Pravastatin Sodium 40 MG TAB PO SCH (08:40)
[2017-06-04] MEDS: Pantoprazole 40 mg EC Tab PO SCH (08:40)
[2017-06-04] MEDS: Cholestyramine 4 gm/Pkt UD PO SCH (08:40)
[2017-06-05] MEDS: Insulin Regular 100 units/ml SC SCH ×2 (07:06→11:58)
[2017-06-05] MEDS: Pravastatin Sodium 40 MG TAB PO SCH (08:07)
[2017-06-05] MEDS: Saccharomyces Boulardi 250 mg Cap PO SCH (08:07)
[2017-06-05] MEDS: Enoxaparin 30 mg Syringe SC SCH (08:07)
[2017-06-05] MEDS: Pantoprazole 40 mg EC Tab PO SCH (08:08)
[2017-06-05] MEDS: Cholestyramine 4 gm/Pkt UD PO SCH (08:10)
[2017-06-05 08:11] VITALS: BP 118/61; PULSE 74
--- NOTE | 2017-06-05 09:03 | CP.PCM.DIS ---
Provider - Provider Date of Admission: 05/25/17 17:38 Attending physician: Manpreet Austin MD Consults: GI Psychiatry Time Spent in preparation of Discharge (in minutes): 35 Diagnosis - Discharge Diagnosis (1) Colitis Status: Acute Comment: Clinically Improved. s/p Abx treatment. C/W current [facility] Hospital Course - Lab Results Lab Results: Most Recent Lab Values WBC 4.7 K/uL (4.8-10.8) L 06/03/17 05:30 RBC 3.75 Mil/uL (3.80-5.20) L 06/03/17 05:30 Hgb 10.8 g/dL (12.0-16.0) L 06/03/17 05:30 Hct 34.2 % (34.0-47.0) 06/03/17 05:30 MCV 91.3 fl (81.0-99.0) 06/03/17 05:30 MCH 28.8 pg (27.0-31.0) 06/03/17 05:30 MCHC 31.6 g/dL (33.0-37.0) L 06/03/17 05:30 RDW 15.0 % (11.5-14.5) H 06/03/17 05:30 Plt Count 282 K/uL (130-400) 06/03/17 05:30 Sodium 141 mmol/l (132-148) 06/03/17 05:30 Potassium 5.3 MMOL/L (3.6-5.0) H 06/03/17 05:30 Chloride 108 mmol/L (98-107) H 06/03/17 05:30 Carbon Dioxide 22 mmol/L (22-30) 06/03/17 05:30 Anion Gap 16 (10-20) 06/03/17 05:30 BUN 27 mg/dl (7-17) H 06/03/17 05:30 Creatinine 2.0 mg/dl (0.7-1.2) H 06/03/17 05:30 Est GFR ( Amer) 29 06/03/17 05:30 Est GFR (Non-Af Amer) 24 06/03/17 05:30 POC Glucose (mg/dL) 128 mg/dL (65-110) H 06/05/17 07:06 Random Glucose 239 mg/dL (65-105) H 06/03/17 05:30 Calcium 8.6 mg/dL (8.4-10.2) 06/03/17 05:30 Total Bilirubin 0.2 mg/dl (0.2-1.3) 06/03/17 05:30 AST 20 U/L (14-36) 06/03/17 05:30 ALT 26 U/L (9-52) 06/03/17 05:30 Alkaline Phosphatase 69 U/L (38-126) 06/03/17 05:30 Total Protein 6.5 G/DL (6.3-8.2) 06/03/17 05:30 Albumin 3.3 g/dL (3.5-5.0) L 06/03/17 05:30 Globulin 3.2 gm/dL (2.2-3.9) 06/03/17 05:30 Albumin/Globulin Ratio 1.0 (1.0-2.1) 06/03/17 05:30 C. difficile Ag & Toxin Negative (NEGATIVE) 05/27/17 20:03 - Hospital Course Hospital Course: Discussed with Dr Austin 77y/o F with PMhx of HTN, CAD, DM, CKD, COPD admitted to hosp with complaints of vomiting, abdominal pain and diarrhea and found to have Colitis. GI was consulted and patient with treated with Cipro, Flagyl and chlestyramine. Symptoms markedly improved. C.Diff toxine neg. Patient had CAMPBELL on admission that resolved after hydration and developed confusion that also resolved. After medically stable she was transferred to TCU for PT which she successfully finish today and is stable to be DC home and f/u as outpatient Discharge Exam - Head Exam Head Exam: NORMAL INSPECTION - Eye Exam Eye Exam: EOMI, PERRL - ENT Exam ENT Exam: Mucous Membranes Moist - Respiratory Exam Respiratory Exam: Clear to PA & Lateral, NORMAL BREATHING PATTERN, UNREMARKABLE - Cardiovascular Exam Cardiovascular Exam: REGULAR RHYTHM. absent: Gallop - GI/Abdominal Exam GI & Abdominal Exam: Normal Bowel Sounds, Unremarkable - Neurological Exam Neurological exam: Alert, Oriented x3 - Psychiatric Exam Psychiatric exam: Normal Affect, Normal Mood - Skin Skin Exam: Normal Color, Warm Discharge Plan - Discharge Medications Prescriptions: amLODIPine [Norvasc] 10 mg PO DAILY #20 tab Cholestyramine [Questran] 4 gm PO DAILY #20 packet cloNIDine [Catapres] 0.2 mg PO Q8H #60 tab Escitalopram [Lexapro] 5 mg PO HS #30 tab Furosemide [Lasix] 40 mg PO DAILY #20 tab GlipiZIDE [Glucotrol] 10 mg PO DAILY #20 tab Isosorbide Mononitrate ER [Imdur ER] 30 mg PO DAILY #20 tab Pantoprazole Sodium [Protonix] 40 mg PO DAILY #20 tablet. SITagliptin [Januvia] 100 mg PO DAILY #20 tab - Follow Up Plan Condition: STABLE Disposition: HOME/ ROUTINE Instructions: Gastritis (DC) Additional Instructions: F/U with Dr Austin within 1 week Referrals: Manpreet Austin MD [Family Provider] -
[2017-06-05 09:06] VITALS: TEMP 97.5; O2SAT 91
[2017-06-05] MEDS ORDERED: Insulin Detemir 100 Units/ml Inj SC SCH (22:00)
== END 2017-06-05 16:35 | disposition home health service (06) | DRG 392 ==
LOC: H.TCU 17:38
PROVIDERS: ADMIT Internal Medicine; ATTEND Internal Medicine
PROC: F08Z4FZ Home Management Treatment using Assistive, Adaptive, Supportive or Protective Equipment (ICD-10-PCS; principal; 2017-05-26)
PROC: F07M6FZ Therapeutic Exercise Treatment of Musculoskeletal System - Whole Body using Assistive, Adaptive, Supportive or Protective Equipment (ICD-10-PCS; 2017-05-26)
DX: K52.9 Noninfective gastroenteritis and colitis, unspecified (principal); N17.9 Acute kidney failure, unspecified; E11.22 Type 2 diabetes mellitus with diabetic chronic kidney disease; I48.91 Unspecified atrial fibrillation; I13.0 Hypertensive heart and chronic kidney disease with heart failure and stage 1 through stage 4 chronic kidney disease, or unspecified chronic kidney disease; I50.9 Heart failure, unspecified; E78.00 Pure hypercholesterolemia, unspecified; E78.5 Hyperlipidemia, unspecified; F32.9 Major depressive disorder, single episode, unspecified; I25.10 Atherosclerotic heart disease of native coronary artery without angina pectoris; J44.9 Chronic obstructive pulmonary disease, unspecified; M19.90 Unspecified osteoarthritis, unspecified site; M81.0 Age-related osteoporosis without current pathological fracture; N18.9 Chronic kidney disease, unspecified; Z87.01 Personal history of pneumonia (recurrent); Z90.49 Acquired absence of other specified parts of digestive tract; Z95.5 Presence of coronary angioplasty implant and graft; D64.9 Anemia, unspecified; F41.9 Anxiety disorder, unspecified; K29.70 Gastritis, unspecified, without bleeding; K82.9 Disease of gallbladder, unspecified; R44.1 Visual hallucinations

== ENCOUNTER 2017-10-19 12:44 | Inpatient (IN) | payer MEDICARE, MEDICAID ==
[2017-10-19 12:53] VITALS: BMI 28.4
[2017-10-19] MEDS ORDERED: Albuterol-Ipratrop 3 mg / 0.5 (3 ml) UD INH STA (13:09)
--- NOTE | 2017-10-19 13:56 | ED PDOC ---
HPI: SOB/CHF/COPD Time Seen by Provider: 10/19/17 12:59 Chief Complaint (Nursing): Cough, Cold, Congestion Chief Complaint (Provider): Cough, Shortness Of Breath, Wheezing History Per: Patient History/Exam Limitations: no limitations Onset/Duration Of Symptoms: Days (x2) Current Symptoms Are (Timing): Still Present Additional Complaint(s): 77 y/o female with PMHx of asthma, heart disease, and diabetes presenting with her neighbor who states shes been having worsening cough, shortness of breath and wheeze x2 days. She states patient requires more home oxygen than baseline. She reports symptoms worsen with lying down, but also persist when upright. She also reports some generalized weakness. She denies fever, lower extremity edema , or hemoptysis. Reports compliance with medications. Also reports using home nebulizers without relief. PMD: Dr. Manpreet Austin Past Medical History Reviewed: Historical Data, Nursing Documentation, Vital Signs Vital Signs: Last Vital Signs Temp 97.3 F L 10/21/17 17:00 Pulse 77 10/21/17 17:00 Resp 16 10/21/17 17:00 BP 175/76 H 10/21/17 17:00 Pulse Ox 95 10/21/17 17:00 - Medical History PMH: Anemia, Anxiety, Arthritis, Atrial Fibrillation, Back Problems (had recent injury/fall and was hospitalized for back pain(no findings)), Bronchitis, CAD, Cardia Arrhythmia, CHF, COPD, Depression, Diabetes (type II), Gastritis, Gall Bladder Disease, Hepatitis (B), HTN, Hypercholesterolemia, Hyperlipidemia, Osteoporosis, Peripheral Edema, Pneumonia, Chronic Kidney Disease Denies: Asthma, HIV, End Stage Renal Disease - Surgical History Surgical History: Cholecystectomy, Coronary Stent, (x 2) - Family History Family History: States: Hypertension - Social History Current smoker - smoking cessation education provided: No Alcohol: None Drugs: Denies - Immunization History Hx Tetanus Toxoid Vaccination: No Hx Influenza Vaccination: Yes Hx Pneumococcal Vaccination: Yes - Home Medications Home Medications: Ambulatory Orders Medication Instructions Recorded Pravastatin Sodium [Pravachol] 40 mg PO DAILY 07/17/16 Aspirin [Lo-Dose Aspirin EC] 81 mg PO DAILY 05/05/17 Furosemide [Lasix] 40 mg PO DAILY #20 tab 06/05/17 GlipiZIDE [Glucotrol] 10 mg PO DAILY #20 tab 06/05/17 Isosorbide Mononitrate ER [Imdur 30 mg PO DAILY #20 tab 06/05/17 ER] Pantoprazole Sodium [Protonix] 40 mg PO DAILY #20 tablet. 06/05/17 SITagliptin [Januvia] 100 mg PO DAILY #20 tab 06/05/17 Bisoprolol [Zebeta] 5 mg PO DAILY 10/19/17 Ferrous Gluconate [Fergon] 324 mg PO DAILY 10/19/17 Sucralfate [Carafate] 1 gm PO BID 10/19/17 Sulfamethoxazole/Trimethoprim 1 tab PO BID 10/19/17 [Bactrim DS Tab] - Allergies Allergies/Adverse Reactions: Allergies Allergy/AdvReac Type Severity Reaction Status Date / Time alprazolam [From Xanax] Allergy SWELLING Verified 05/25/17 15:03 hydromorphone HCl Allergy RASH Verified 05/25/17 15:03 [From Dilaudid] zolpidem tartrate Allergy RASH Verified 05/25/17 15:03 [From Ambien] Review of Systems ROS Statement: Except As Marked, All Systems Reviewed And Found Negative Constitutional: Positive for: Weakness. Negative for: Fever Respiratory: Positive for: Cough, Shortness of Breath, Wheezing. Negative for: Hemoptysis Physical Exam - Reviewed Nursing Documentation Reviewed: Yes Vital Signs Reviewed: Yes - Physical Exam Appears: Positive for: Non-toxic, No Acute Distress (elderly appearing) Head Exam: Positive for: ATRAUMATIC, NORMAL INSPECTION, NORMOCEPHALIC Skin: Positive for: Normal Color, Warm. Negative for: Rash Eye Exam: Positive for: EOMI, Normal appearance, PERRL ENT: Positive for: Normal ENT Inspection Neck: Positive for: Normal, Painless ROM, Supple Cardiovascular/Chest: Positive for: Regular Rate, Rhythm. Negative for: Murmur Respiratory: Positive for: Wheezing (bilateral), Other (speaking full sentences) Gastrointestinal/Abdominal: Positive for: Normal Exam, Soft. Negative for: Tenderness Back: Positive for: Normal Inspection Extremity: Positive for: Normal ROM. Negative for: Pedal Edema, Deformity, Swelling Neurologic/Psych: Positive for: Alert, Oriented. Negative for: Motor/Sensory Deficits - Laboratory Results Result Diagrams: 10/21/17 04:50 10/21/17 04:50 - ECG ECG: Positive for: Interpreted By Me ECG Rhythm: Positive for: Sinus Rhythm, Nonspecific Changes Rate: 81 O2 Sat by Pulse Oximetry: 95 (RA) Pulse Ox Interpretation: Normal - Radiology X-Ray: Read By Radiologist X-Ray Interpretation: Infiltrates - Critical Care Total Time (In Min): 45 Medical Decision Making Medical Decision Makin:08 Plan: Will work up for mild respiratory compromise with CXR and blood work. Will give bronchodilators and Solu-Medrol. -EKG: sinus at 81, Q-wave septal CXR reveals developing R sided infiltrate as read by radiologist labs reveal mild leukopenia, anemia and elevated BNP, worsening kidney function as compared to prior labs in early 2018 Caution w diuretics given borderline hypotension. blood cultures ordered and antibiotics ordered for CAP. given resp status, hypoxia 91% RA, worsening renal function, evidence pneumonia on CXR, admit Dr Austin (aware 3pm). Dr Uriarte resident aware 305pm Scribe Attestation: Documented by Yuniel Baca, acting as a scribe for Toney Apodaca III, DO. Provider Scribe Attestation: All medical record entries made by the Scribe were at my direction and personally dictated by me. I have reviewed the chart and agree that the record accurately reflects my personal performance of the history, physical exam, medical decision making, and the department course for this patient. I have also personally directed, reviewed, and agree with the discharge instructions and disposition. Disposition - Clinical Impression Clinical Impression: COPD exacerbation, Community acquired bacterial pneumonia, Acute kidney injury - Patient ED Disposition Is Patient to be Admitted: Yes - Disposition Disposition Time: 14:50 Condition: FAIR - Pt Status Changed To: Hospital Disposition Of: Inpatient - Admit Certification Admit to Inpatient:: After my assessment, the patient will require hospitalization for at least two midnights. This is because of the severity of symptoms shown, intensity of services needed, and/or the medical risk in this patient being treated as an outpatient. - POA Present On Arrival: None
[2017-10-19 14:00] LABS: BASO % 0.3 % (0.0-2.0); EOS # 0.2 K/uL (0.0-0.7); EOS % 4.7 % (0.0-4.0); HEMOGLOBIN 10.6 g/dL (12.0-16.0); LYMPH # 0.7 K/uL (1.0-4.3); LYMPH % 15.3 % (20.0-40.0); MEAN CELL VOLUME 93.2 fl (81.0-99.0); MEAN CORPUSCULAR HEMOGLOBIN 29.7 pg (27.0-31.0); MEAN CORPUSCULAR HGB CONC 31.8 g/dL (33.0-37.0); MEAN PLATELET VOLUME 8.2 fl (7.2-11.7); MONO # 0.6 K/uL (0.0-0.8); MONO % 12.1 % (0.0-10.0); NEUT # 3.2 K/uL (1.8-7.0); NEUT % 67.6 % (50.0-75.0); RBC 3.57 Mil/uL (3.80-5.20); RED CELL DISTRIBUTION WIDTH 15.2 % (11.5-14.5); WHITE BLOOD COUNT 4.7 K/uL (4.8-10.8)
[2017-10-19] MEDS ORDERED: Albuterol-Ipratrop 3 mg / 0.5 (3 ml) UD ONE (14:06)
[2017-10-19] MEDS ORDERED: MethylPREDNISolone 40 mg Vial ONE (14:07)
[2017-10-19 14:10] LABS: ALB/GLOB RATIO 1.3 (1.0-2.1); ALBUMIN 3.8 g/dL (3.5-5.0); CALCIUM 8.6 mg/dL (8.4-10.2)
[2017-10-19 14:13] LABS: INR 0.9 (0.9-1.2); PARTIAL THROMBOPLASTIN TIME 29.7 Seconds (25.6-37.1); PROTHROMBIN TIME 10.2 Seconds (9.8-13.1)
[2017-10-19 14:21] LABS: TROPONIN I 0.076 ng/mL (0.00-0.120)
--- NOTE | 2017-10-19 14:24 | RAD ---
Date of service: 10/19/2017 HISTORY: chest pain/ r/o infiltrate COMPARISON: Portable chest 05/21/2017. TECHNIQUE: Chest PA and lateral FINDINGS: LUNGS: Limited patchy density is seen lateral to the right heart border and in fact obscures a somewhat and raise question of right middle lobe infiltrate or atelectasis. Remaining lung ugalde appear stable and clear otherwise with exception of minimal fibrosis at the inferior left lung zone. PLEURA: No significant pleural effusion identified. No pneumothorax apparent. CARDIOVASCULAR: Stable, mild cardiomegaly. No pulmonary vascular congestion. OSSEOUS STRUCTURES: No significant abnormalities. VISUALIZED UPPER ABDOMEN: Normal. OTHER FINDINGS: None. IMPRESSION: Limited right middle lobe infiltrate appears to be developing. Clinically correlate further. No pleural effusion or additional infiltrate bilaterally.
[2017-10-19] MEDS ORDERED: Azithromycin 500 MG in Sodium Chloride 0.9% 250 ML IVPB STA (15:00)
[2017-10-19] MEDS ORDERED: Sod Polystyrene Sulf 15 gm/60 ml Susp PO ONE (15:06)
[2017-10-19] MEDS ORDERED: cefTRIAXone (Rocephin) 1 gm Inj ONE (15:30)
[2017-10-19] MEDS ORDERED: Sod Polystyrene Sulf 15 gm/60 ml Susp ONE (16:37)
[2017-10-19] MEDS ORDERED: Azithromycin 500 MG IV IVPB ONE (16:38)
--- NOTE | 2017-10-19 20:17 | CP.PCM.CON ---
History of Present Illness - History of Present Illness History of Present Illness: pt is seen and examined, full consult is dictated #[id number] 1. Andrade on ckd-3 2. hyperkalemia 3. htn 4. dm, 5. Acute bronchritis vs pneumonia 6. r/o UTI check urine c/s, urinalysis, ivf 1/2 ns at 70 ml/hr bmp in am check urine lytes, osm, cr low na,low k+ diet kayexalate 15 gm po prn for hyperkalemia >5.5 Past Patient History - Past Medical History & Family History Past Medical History?: Yes - Past Social History Alcohol: None Drugs: Denies - CARDIAC Hx Atrial Fibrillation: Yes Hx Cardia Arrhythmia: Yes Hx Congestive Heart Failure: Yes Hx Hypercholesterolemia: Yes Hx Hypertension: Yes Hx Peripheral Edema: Yes - PULMONARY Hx Asthma: No Hx Bronchitis: Yes Hx Chronic Obstructive Pulmonary Disease (COPD): Yes Hx Pneumonia: Yes - NEUROLOGICAL Hx Neurological Disorder: No - HEENT Hx HEENT Problems: No - RENAL Hx Chronic Kidney Disease: Yes - ENDOCRINE/METABOLIC Hx Endocrine Disorders: Yes Hx Diabetes Mellitus Type 2: Yes - HEMATOLOGICAL/ONCOLOGICAL Hx Anemia: Yes Hx Human Immunodeficiency Virus (HIV): No - INTEGUMENTARY Hx Dermatological Problems: No - MUSCULOSKELETAL/RHEUMATOLOGICAL Hx Arthritis: Yes Hx Osteoporosis: Yes - GASTROINTESTINAL Hx Gall Bladder Disease: Yes Hx Gastritis: Yes - GENITOURINARY/GYNECOLOGICAL Hx Genitourinary Disorders: No - PSYCHIATRIC Hx Anxiety: Yes Hx Depression: Yes - SURGICAL HISTORY Hx Cholecystectomy: Yes Hx Coronary Stent: Yes - ANESTHESIA Hx Anesthesia: Yes Hx Anesthesia Reactions: No Hx Malignant Hyperthermia: No Meds Allergies/Adverse Reactions: Allergies Allergy/AdvReac Type Severity Reaction Status Date / Time alprazolam [From Xanax] Allergy SWELLING Verified 05/25/17 15:03 hydromorphone HCl Allergy RASH Verified 05/25/17 15:03 [From Dilaudid] zolpidem tartrate Allergy RASH Verified 05/25/17 15:03 [From Ambien] - Medications Medications: Current Medications Acetaminophen (Tylenol 325mg Tab) 650 mg PO Q6 PRN PRN Reason: Fever >100.4 F Albuterol/Ipratropium (Duoneb 3 Mg/0.5 Mg (3 Ml) Ud) 3 ml INH RQ6 PRN PRN Reason: Shortness of Breath Aspirin (Ecotrin) 81 mg PO DAILY [facility] Bisoprolol Fumarate (Zebeta) 5 mg PO DAILY [facility] Ferrous Gluconate (Fergon) 324 mg PO DAILY [facility] Glipizide (Glucotrol) 10 mg PO DAILY [facility] Heparin Sodium (Porcine) (Heparin) 5,000 units SC Q8 [facility] PRN Reason: Protocol Last Admin: 10/19/17 17:23 Dose: 5,000 units Azithromycin 500 mg/ Sodium (Chloride) 250 mls @ 250 mls/hr IVPB DAILY [facility] PRN Reason: Protocol Ceftriaxone Sodium 1 gm/ (Sodium Chloride) 100 mls @ 100 mls/hr IVPB DAILY [facility] PRN Reason: Protocol Isosorbide Mononitrate (Imdur Er) 30 mg PO DAILY [facility] Pantoprazole Sodium (Protonix Ec Tab) 40 mg PO DAILY [facility] Pravastatin Sodium (Pravachol) 40 mg PO DAILY [facility] Prednisone (Prednisone Tab) 20 mg PO DAILY [facility] Sitagliptin Phosphate (Januvia) 100 mg PO DAILY [facility] Sucralfate (Carafate Tab) 1 gm PO BID [facility] Last Admin: 10/19/17 17:23 Dose: 1 gm Results - Vital Signs Recent Vital Signs: Last Vital Signs Temp 98.7 F 10/19/17 19:41 Pulse 96 H 10/19/17 19:41 Resp 17 10/19/17 19:41 BP 157/81 H 10/19/17 19:41 Pulse Ox 96 10/19/17 19:41 - Labs Result Diagrams: 10/19/17 13:52 10/19/17 13:52 Labs: Laboratory Results - last 24 hr 10/19/17 10/19/17 10/19/17 13:52 13:52 13:52 WBC 4.7 L RBC 3.57 L Hgb 10.6 L Hct 33.2 L MCV 93.2 MCH 29.7 MCHC 31.8 L RDW 15.2 H Plt Count 250 MPV 8.2 Neut % (Auto) 67.6 Lymph % (Auto) 15.3 L Lyon % (Auto) 12.1 H Eos % (Auto) 4.7 H Baso % (Auto) 0.3 Neut # (Auto) 3.2 Lymph # (Auto) 0.7 L Lyon # (Auto) 0.6 Eos # (Auto) 0.2 Baso # (Auto) 0.0 PT 10.2 INR 0.9 APTT 29.7 Sodium 141 Potassium 5.4 H Chloride 109 H Carbon Dioxide 22 Anion Gap 15 BUN 44 H Creatinine 3.1 H Est GFR ( Amer) 18 Est GFR (Non-Af Amer) 15 Random Glucose 153 H Calcium 8.6 Total Bilirubin 0.3 AST 27 ALT 29 Alkaline Phosphatase 92 Troponin I 0.0760 NT-Pro-B Natriuret Pep 5460 H Total Protein 6.7 Albumin 3.8 Globulin 2.9 Albumin/Globulin Ratio 1.3
--- NOTE | 2017-10-19 20:42 | CP.PCM.HP ---
<Dayna Uriarte - Last Filed: 10/19/17 20:39> History of Present Illness - History of Present Illness History of Present Illness: HPI: 77 YO Female with PMHx of HTN, HLD, CAD, CHF, COPD, CKD, NIDDM, gastritis, presents to [facility] ED for cough, subjective fever and dyspnea x 4 days. Pt states that her symptoms started 4 days ago with non-productive cough, and in the subsequent days symptoms worsened with difficulty breathing, orthopnea and subjective fever. Denies chest pain, palpitations, dizziness, n/v/d/c. On home O2 at baseline. 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 absent: Dyspnea - Gastrointestinal Gastrointestinal: absent: Abdominal Pain, Constipation, Diarrhea - Genitourinary Genitourinary: absent: Dysuria - Musculoskeletal Musculoskeletal: Back Pain - Neurological Neurological: absent: Dizziness, Numbness Past Patient History - Past Medical History & Family History Past Medical History?: Yes - Past Social History Smoking Status: Former Smoker Alcohol: None Drugs: Denies - CARDIAC Hx Congestive Heart Failure: Yes Hx Hypercholesterolemia: Yes Hx Hypertension: Yes - PULMONARY Hx Asthma: No Hx Bronchitis: Yes Hx Chronic Obstructive Pulmonary Disease (COPD): Yes Hx Pneumonia: Yes - NEUROLOGICAL Hx Neurological Disorder: No - HEENT Hx HEENT Problems: No - RENAL Hx Chronic Kidney Disease: Yes - ENDOCRINE/METABOLIC Hx Endocrine Disorders: Yes Hx Diabetes Mellitus Type 2: Yes - HEMATOLOGICAL/ONCOLOGICAL Hx Anemia: Yes Hx Human Immunodeficiency Virus (HIV): No - INTEGUMENTARY Hx Dermatological Problems: No - MUSCULOSKELETAL/RHEUMATOLOGICAL Hx Arthritis: Yes Hx Osteoporosis: Yes - GASTROINTESTINAL Hx Gall Bladder Disease: Yes Hx Gastritis: Yes - GENITOURINARY/GYNECOLOGICAL Hx Genitourinary Disorders: No - PSYCHIATRIC Hx Anxiety: Yes Hx Depression: Yes - SURGICAL HISTORY Hx Cholecystectomy: Yes Hx Coronary Stent: Yes - ANESTHESIA Hx Anesthesia: Yes Hx Anesthesia Reactions: No Hx Malignant Hyperthermia: No Meds Allergies/Adverse Reactions: Allergies Allergy/AdvReac Type Severity Reaction Status Date / Time alprazolam [From Xanax] Allergy SWELLING Verified 05/25/17 15:03 hydromorphone HCl Allergy RASH Verified 05/25/17 15:03 [From Dilaudid] zolpidem tartrate Allergy RASH Verified 05/25/17 15:03 [From Ambien] Physical Exam - Constitutional Appears: No Acute Distress, Other (3L on NC) - Head Exam Head Exam: ATRAUMATIC - Eye Exam Eye Exam: EOMI, Normal appearance - ENT Exam ENT Exam: Mucous Membranes Moist - Respiratory Exam Respiratory Exam: Decreased Breath Sounds (in the right lower lobe), Rhonchi ( in the right lower lobes, decrease breath sounds), Wheezes (wheezing heard throughout ), NORMAL BREATHING PATTERN. absent: Accessory Muscle Use, Rales - Cardiovascular Exam Cardiovascular Exam: REGULAR RHYTHM, +S1, +S2 - GI/Abdominal Exam GI & Abdominal Exam: Normal Bowel Sounds, Soft. absent: Tenderness - Extremities Exam Extremities exam: Positive for: normal inspection. Negative for: pedal edema - Back Exam Back exam: NORMAL INSPECTION - Neurological Exam Neurological exam: Alert Results - Vital Signs Recent Vital Signs: Last Vital Signs Temp 98.7 F 10/19/17 19:41 Pulse 96 H 10/19/17 19:41 Resp 17 10/19/17 19:41 BP 157/81 H 10/19/17 19:41 Pulse Ox 96 10/19/17 19:41 - Labs Result Diagrams: 10/19/17 13:52 10/19/17 13:52 Labs: Laboratory Results - last 24 hr 10/19/17 10/19/17 10/19/17 13:52 13:52 13:52 WBC 4.7 L RBC 3.57 L Hgb 10.6 L Hct 33.2 L MCV 93.2 MCH 29.7 MCHC 31.8 L RDW 15.2 H Plt Count 250 MPV 8.2 Neut % (Auto) 67.6 Lymph % (Auto) 15.3 L [place] % (Auto) 12.1 H Eos % (Auto) 4.7 H Baso % (Auto) 0.3 Neut # (Auto) 3.2 Lymph # (Auto) 0.7 L [place] # (Auto) 0.6 Eos # (Auto) 0.2 Baso # (Auto) 0.0 PT 10.2 INR 0.9 APTT 29.7 Sodium 141 Potassium 5.4 H Chloride 109 H Carbon Dioxide 22 Anion Gap 15 BUN 44 H Creatinine 3.1 H Est GFR ( Amer) 18 Est GFR (Non-Af Amer) 15 Random Glucose 153 H Calcium 8.6 Total Bilirubin 0.3 AST 27 ALT 29 Alkaline Phosphatase 92 Troponin I 0.0760 NT-Pro-B Natriuret Pep 5460 H Total Protein 6.7 Albumin 3.8 Globulin 2.9 Albumin/Globulin Ratio 1.3 Assessment & Plan - Assessment and Plan (Free Text) Assessment: Assessment/Plan: 77 YO Female with PMHx of HTN, HLD, CAD, CHF, COPD, CKD, NIDDM, gastritis, is admitted for pneumonia with respiratory distress, and acute on chronic renal failure. -blood work reviewed; sig for hyperkalemia and elevated bun/cr with low GFR -Nephrology consulted -pro-BNP elevated, trops x 1 neg -CXR sig for RML pneumonia; ekg no acute ST changes -cont abx -plan as ordered <Manpreet Austin K - Last Filed: 10/21/17 19:28> Results - Vital Signs Recent Vital Signs: Last Vital Signs Temp 97.3 F L 10/21/17 17:00 Pulse 81 10/21/17 19:15 Resp 16 10/21/17 17:00 BP 175/76 H 10/21/17 17:00 Pulse Ox 95 10/21/17 19:15 - Labs Result Diagrams: 10/21/17 04:50 10/21/17 04:50 Labs: Laboratory Results - last 24 hr 10/21/17 10/21/17 10/21/17 04:50 04:50 13:00 WBC 8.0 D RBC 3.60 L Hgb 10.7 L Hct 33.6 L MCV 93.5 MCH 29.8 MCHC 31.8 L RDW 15.1 H Plt Count 252 Sodium 144 Potassium 5.1 H Chloride 109 H Carbon Dioxide 20 L Anion Gap 20 BUN 44 H Creatinine 2.7 H Est GFR ( Amer) 21 Est GFR (Non-Af Amer) 17 Random Glucose 190 H Calcium 8.7 Total Bilirubin 0.3 AST 23 ALT 27 Alkaline Phosphatase 94 Total Protein 7.4 Albumin 4.2 Globulin 3.2 Albumin/Globulin Ratio 1.3 Urine Color Urine Clarity Urine pH Ur Specific [place] Urine Protein Urine Glucose (UA) Urine Ketones Urine Blood Urine Nitrate Urine Bilirubin Urine Urobilinogen Ur Leukocyte Esterase Urine RBC (Auto) Urine Microscopic WBC Ur Squamous Epith Cells Urine Bacteria Urine Osmolality 245 L Ur Random Creatinine 37.7 Ur Random Sodium 35 10/21/17 13:00 WBC RBC Hgb Hct MCV MCH MCHC RDW Plt Count Sodium Potassium Chloride Carbon Dioxide Anion Gap BUN Creatinine Est GFR ( Amer) Est GFR (Non-Af Amer) Random Glucose Calcium Total Bilirubin AST ALT Alkaline Phosphatase Total Protein Albumin Globulin Albumin/Globulin Ratio Urine Color Straw Urine Clarity Clear Urine pH 6.0 Ur Specific [place] 1.008 Urine Protein >=500 Urine Glucose (UA) 50 Urine Ketones Negative Urine Blood Negative Urine Nitrate Negative Urine Bilirubin Negative Urine Urobilinogen 0.2-1.0 Ur Leukocyte Esterase Neg Urine RBC (Auto) < 1 Urine Microscopic WBC 3 Ur Squamous Epith Cells 1 Urine Bacteria Few H Urine Osmolality Ur Random Creatinine Ur Random Sodium Assessment & Plan - Assessment and Plan (Free Text) Assessment: Patient was personally seen and examined by me in rounds with residents. Available labs and diagnostic data reviewed. Case, Patient's condition and management plan discussed with residents in rounds. Agree with resident's progress note. Plan: As ordered.
[2017-10-19] MEDS: Sodium Chloride 0.45% 1,000 ML IV SCH (21:40)
[2017-10-19] MEDS: Albuterol-Ipratrop 3 mg / 0.5 (3 ml) UD INH PRN (22:04)
[2017-10-20 05:27] LABS: BASO % 0.4 % (0.0-2.0); HEMOGLOBIN 10.7 g/dL (12.0-16.0); LYMPH # 0.4 K/uL (1.0-4.3); LYMPH % 7.3 % (20.0-40.0); MEAN CELL VOLUME 93.4 fl (81.0-99.0); MEAN CORPUSCULAR HEMOGLOBIN 30.1 pg (27.0-31.0); MEAN CORPUSCULAR HGB CONC 32.2 g/dL (33.0-37.0); MEAN PLATELET VOLUME 8.5 fl (7.2-11.7); MONO # 0.1 K/uL (0.0-0.8); MONO % 2.7 % (0.0-10.0); NEUT # 4.5 K/uL (1.8-7.0); NEUT % 89.6 % (50.0-75.0); PLATELET COUNT 239 K/uL (130-400); RBC 3.56 Mil/uL (3.80-5.20); RED CELL DISTRIBUTION WIDTH 15.2 % (11.5-14.5); WHITE BLOOD COUNT 5.1 K/uL (4.8-10.8)
[2017-10-20 05:35] LABS: CALCIUM 8.9 mg/dL (8.4-10.2)
[2017-10-20 06:34] LABS: BANDS 2 % (0-2); LYMPHOCYTE 6 % (20-50); NEUTROPHIL 90 % (42-75); PLATELET ESTIMATE NORMAL (NORMAL); TOTAL CELLS COUNTED 100
[2017-10-20 06:36] LABS: MONOCYTE 2 % (0-10)
[2017-10-20] MEDS: Albuterol-Ipratrop 3 mg / 0.5 (3 ml) UD INH PRN ×3 (08:15→23:27)
[2017-10-20] MEDS: Pantoprazole 40 mg EC Tab PO SCH (09:57)
[2017-10-20] MEDS: Pravastatin Sodium 40 MG TAB PO SCH (09:57)
[2017-10-20] MEDS: Azithromycin 500 MG in Sodium Chloride 0.9% 250 ML IVPB SCH (09:58)
--- NOTE | 2017-10-20 11:06 | PN ---
DATE: 10/20/2017 SUBJECTIVE: The patient is seen and examined. Interim events noted. The patient remains in transitional care unit on telemetry monitoring. The patient complains of coughing. No chest pain or shortness of breath. PHYSICAL EXAMINATION: GENERAL: The patient is in no acute distress. VITAL SIGNS: Stable. HEAR: S1, S2. Normal and regular. LUNGS: 00:27 bilateral crepitations. No rales or rhonchi. ABDOMEN: Soft, nontender. No organomegaly. No fluids. Bowel sounds are present and normal. EXTREMITIES: No edema. No calf swelling. No tenderness noted. No acute ischemia. ACCOUNT SERVICE REPRESENTATIVE: Essentially unchanged. DIAGNOSTIC DATA: Available diagnostic data reviewed. Telemetry monitoring does not reveal significant arrhythmia. ASSESSMENT AND PLAN: Overall, the patient has pneumonia. Plan as ordered. Manpreet Austin MD
[2017-10-20] MEDS: Sodium Chloride 0.45% 1,000 ML IV SCH (12:40)
--- NOTE | 2017-10-20 14:31 | CP.PCM.PN ---
Subjective - Date & Time of Evaluation Date of Evaluation: 10/20/17 Time of Evaluation: 14:30 - Subjective Subjective: pt is seen and examined, follow up consult is dictated #[id number] kayexalate 30 gm po x1, consider mucinex inhaller c/w iv abx Objective - Vital Signs/Intake and Output Vital Signs (last 24 hours): Temp Pulse Resp BP Pulse Ox 97.9 F 82 20 150/70 100 10/20/17 13:00 10/20/17 13:00 10/20/17 13:00 10/20/17 13:00 10/20/17 13:00 - Medications Medications: Current Medications Acetaminophen (Tylenol 325mg Tab) 650 mg PO Q6 PRN PRN Reason: Fever >100.4 F Albuterol/Ipratropium (Duoneb 3 Mg/0.5 Mg (3 Ml) Ud) 3 ml INH RQ6 PRN PRN Reason: Shortness of Breath Last Admin: 10/20/17 08:15 Dose: 3 ml Aspirin (Ecotrin) 81 mg PO DAILY [facility], [facility] Last Admin: 10/20/17 09:54 Dose: 81 mg Bisoprolol Fumarate (Zebeta) 5 mg PO DAILY [facility], [facility]1983 Last Admin: 10/20/17 09:58 Dose: 5 mg Ferrous Gluconate (Fergon) 324 mg PO DAILY [facility], [facility]1983 Last Admin: 10/20/17 09:54 Dose: 324 mg Glipizide (Glucotrol) 10 mg PO DAILY [facility] Last Admin: 10/20/17 09:54 Dose: 10 mg Heparin Sodium (Porcine) (Heparin) 5,000 units SC Q8 LUIZ PRN Reason: Protocol Last Admin: 10/20/17 09:55 Dose: 5,000 units Azithromycin 500 mg/ Sodium (Chloride) 250 mls @ 250 mls/hr IVPB DAILY LUIZ PRN Reason: Protocol Last Admin: 10/20/17 09:58 Dose: 250 mls/hr Ceftriaxone Sodium 1 gm/ (Sodium Chloride) 100 mls @ 100 mls/hr IVPB DAILY LUIZ PRN Reason: Protocol Last Admin: 10/20/17 09:57 Dose: 100 mls/hr Sodium Chloride (Sodium Chloride 0.45%) 1,000 mls @ 60 mls/hr IV .[id number] [facility], [facility]1983 Stop: 10/20/17 20:44 Last Admin: 10/20/17 12:40 Dose: 60 mls/hr Isosorbide Mononitrate (Imdur Er) 30 mg PO DAILY [facility] Last Admin: 10/20/17 09:56 Dose: 30 mg Pantoprazole Sodium (Protonix Ec Tab) 40 mg PO DAILY [facility] Last Admin: 10/20/17 09:57 Dose: 40 mg Pravastatin Sodium (Pravachol) 40 mg PO DAILY [facility] Last Admin: 10/20/17 09:57 Dose: 40 mg Prednisone (Prednisone Tab) 20 mg PO DAILY [facility] Last Admin: 10/20/17 09:57 Dose: 20 mg Sitagliptin Phosphate (Januvia) 100 mg PO DAILY [facility] Last Admin: 10/20/17 09:56 Dose: 100 mg Sucralfate (Carafate Tab) 1 gm PO BID [facility] Last Admin: 10/20/17 09:54 Dose: 1 gm - Labs Labs: 10/20/17 04:25 10/20/17 04:25 PT 10.2 Seconds (9.8-13.1) 10/19/17 13:52 INR 0.9 (0.9-1.2) 10/19/17 13:52 APTT 29.7 Seconds (25.6-37.1) 10/19/17 13:52
--- NOTE | 2017-10-20 17:51 | CARD ---
APPROVED REPORT Date of service: 10/19/2017 EKG Measurement Heart [id number] <Conclusion> Normal sinus rhythm Septal infarct, age undetermined Abnormal ECG
[2017-10-20] MEDS ORDERED: Promethazine 6.25 MG/5 ML CUP PO ONE (23:33)
[2017-10-21] MEDS ORDERED: Oxycodone/Acetaminophen 5/325 mg Tab PO ONE (03:31)
[2017-10-21 05:52] LABS: HEMOGLOBIN 10.7 g/dL (12.0-16.0); MEAN CELL VOLUME 93.5 fl (81.0-99.0); MEAN CORPUSCULAR HEMOGLOBIN 29.8 pg (27.0-31.0); MEAN CORPUSCULAR HGB CONC 31.8 g/dL (33.0-37.0); RBC 3.6 Mil/uL (3.80-5.20); RED CELL DISTRIBUTION WIDTH 15.1 % (11.5-14.5)
[2017-10-21 06:00] LABS: ALB/GLOB RATIO 1.3 (1.0-2.1); ALBUMIN 4.2 g/dL (3.5-5.0); CALCIUM 8.7 mg/dL (8.4-10.2)
[2017-10-21] MEDS: Pravastatin Sodium 40 MG TAB PO SCH (09:24)
[2017-10-21] MEDS: Pantoprazole 40 mg EC Tab PO SCH (09:25)
[2017-10-21] MEDS: Azithromycin 500 MG in Sodium Chloride 0.9% 250 ML IVPB SCH (09:30)
[2017-10-21] MEDS: Albuterol-Ipratrop 3 mg / 0.5 (3 ml) UD INH PRN ×2 (09:45→16:11)
--- NOTE | 2017-10-21 11:59 | PN ---
DATE: 10/21/2017 SUBJECTIVE: The patient is seen and examined. Interim events noted. The patient feels a little better but has generalized body ache, coughing, and shortness of breath improved. PHYSICAL EXAMINATION: GENERAL: The patient is in no acute distress. VITAL SIGNS: Stable. HEART: S1 and S2 normal and regular. LUNGS: Good bilateral air exchange. Occasional rhonchi. Prolonged expiration is still present, but it is better than yesterday. ABDOMEN: Soft and nontender. No organomegaly. No fluid. Bowel sounds are plus and normal. EXTREMITIES: No edema. No calf swelling. No tenderness. No acute ischemia. 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 DIAGNOSTIC DATA: Available diagnostic data reviewed. Telemetry monitoring does not reveal significant arrhythmia. ASSESSMENT AND PLAN: Overall, the patient's general medical condition is stable and improving. Generalized pain the patient is complaining is part of her arthritis. Plan as ordered. Manpreet Austin MD
[2017-10-21] MEDS: guaiFENesin DM 200 mg-20 mg/10 ml UD PO SCH ×2 (12:12→16:38)
[2017-10-21 13:49] LABS: SQUAMOUS EPITHIAL 1 /hpf (0-5); URINE BACTERIA FEW (<OCC); URINE BILIRUBIN NEGATIVE (NEGATIVE); URINE BLOOD NEGATIVE (NEGATIVE); URINE CLARITY CLEAR (Clear); URINE COLOR STRAW (YELLOW); URINE GLUCOSE (UA) 50 mg/dL (Normal); URINE LEUKOCYTE ESTERASE NEG Leu/uL (Negative); URINE PROTEIN >=500 mg/dL (NEGATIVE); URINE UROBILINOGEN 0.2-1.0 mg/dL (0.2-1.0)
[2017-10-21 14:11] LABS: CREATININE, RANDOM URINE 37.7 mg/dL
[2017-10-21] MEDS: Insulin Lispro (humaLOG) 100 Units/ml Inj SC SCH ×2 (17:37→21:26)
[2017-10-22] MEDS: Albuterol-Ipratrop 3 mg / 0.5 (3 ml) UD INH PRN ×2 (00:45→09:09)
[2017-10-22 06:40] LABS: HEMOGLOBIN 11.1 g/dL (12.0-16.0); MEAN CORPUSCULAR HEMOGLOBIN 30.3 pg (27.0-31.0); MEAN CORPUSCULAR HGB CONC 32.2 g/dL (33.0-37.0); RBC 3.67 Mil/uL (3.80-5.20); RED CELL DISTRIBUTION WIDTH 15.2 % (11.5-14.5); WHITE BLOOD COUNT 6.9 K/uL (4.8-10.8)
[2017-10-22] MEDS: Insulin Lispro (humaLOG) 100 Units/ml Inj SC SCH ×4 (06:40→22:10)
[2017-10-22 07:01] LABS: ALB/GLOB RATIO 1.3 (1.0-2.1); ALBUMIN 4.2 g/dL (3.5-5.0); CALCIUM 8.9 mg/dL (8.4-10.2)
--- NOTE | 2017-10-22 08:55 | CON ---
DATE: 10/19/2017 RENAL CONSULTATION LOCATION: The patient is located in room 402, bed 2. REQUESTED BY: Dr. Manpreet Austin. REASON FOR RENAL CONSULTATION: Acute renal failure on chronic kidney disease, hyperkalemia, for further evaluation. HISTORY OF PRESENT ILLNESS: Mrs. Najera is a 77 years old elderly, very pleasant female with a past medical history significant for diabetes for about 15 years, hypertension for more than 10 years, asthma, hyperlipidemia, questionable CHF, and CKD 3, who was admitted through the emergency room with chief complaints of cough for about 4 days and shortness of breath for 4 days and loose bowel movement for about 3 days. As per the patient, she had some dysuria about a week ago and went to the PMD office. The patient was started on p.o. antibiotics for 10 days. As per the patient, she took so far about 5 days and now coming with cough. The cough is mostly dry cough, and no sputum or any expectoration. Complains of slight throat irritation and discomfort. Denies any chest pain. Denies any palpitation. Denies any nausea or vomiting. Denies any abdominal pain. The patient still complains of mild dysuria. No frequency, no edema of the legs. Denies any fever at this time, but does complain of fever few days ago in the house. PAST MEDICAL HISTORY: Significant for hypertension for more than 10 years, diabetes for more than 15 years, asthma, COPD, hyperlipidemia, questionable CHF, and CKD 3. PAST SURGICAL HISTORY: Status post cholecystectomy, hysterectomy long time ago, and also tonsillectomy long time ago, and bilateral cataract surgery. ALLERGIES: ALLERGIC TO ALPRAZOLAM, HYDROMORPHONE, AND ZOLPIDEM. SOCIAL HISTORY: The patient denies any smoking, denies any alcohol, denies any drug abuse. PERSONAL HISTORY: She is a , and she has four children. FAMILY HISTORY: Not significant. MEDICATIONS: Her current medications include as follows; azithromycin 500 mg IV daily, Carafate 1 gm b.i.d., Rocephin 1 gm daily, DuoNeb inhaler 3 mL every 6 hours p.r.n., aspirin 81 mg daily, ferrous gluconate 324 mg p.o. daily, glipizide 10 mg daily, subcu heparin 5000 every 8 hours, Imdur 30 mg p.o. daily, Januvia 100 mg p.o. daily, pravastatin 40 mg p.o. daily, prednisone 20 mg p.o. daily, Protonix 40 mg p.o. daily, and IV fluids just started half-normal saline at 60 mL pre hour, Tylenol, and bisoprolol/Zebeta 5 mg p.o. daily. REVIEW OF THE SYSTEMS: Significant for diarrhea, cough, shortness of breath, questionable fever 2 days prior to the admission. All other review of systems are reviewed and are negative except as mentioned. PHYSICAL EXAMINATION: VITAL SIGNS: As follows; blood pressure initially in the emergency room 111/63, pulse 88, respirations about 19, temperature 98.4, and saturation 95% to 96%. Initial blood pressure also again 106/61, height is 4 feet 10 inches, weight is 136 pounds, and BMI is 28.4. GENERAL: Mrs. Najera is a 77 years old elderly, very pleasant female, moderately built, moderately nourished, not in acute distress. HEENT: Pupils normal, reactive to light and accommodation. Conjunctivae pink. Sclerae anicteric. The tongue is slightly dry. Trachea is midline. No thyroid enlargement. LUNGS: Symmetric on both sides. Bilateral breath sounds present. Bilateral expiratory wheeze present, worse during expiration. CVS: [place] at the fifth intercostal space and midclavicular line. S1, S2 audible. No murmur or gallop. ABDOMEN: Normal in appearance. Soft, tympanic. No guarding. No rigidity. No hepatosplenomegaly. TECHNICAL LABORATORY ASST: The patient is alert, awake, and oriented x3. Nonfocal neuro examination. Cranial nerves II through XII grossly intact. Sensory and motor system is within normal limits. EXTREMITIES: No cyanosis, no clubbing, no edema. LABORATORY DATA: Include as follows; echocardiogram report as of 05/06/2017, left ventricle is normal size and normal left ventricular wall thickness and left ventricular function is normal. Left ventricular ejection fraction within the normal range, ejection fraction is 45% to 50%. There is normal LV segmental wall motion, and the left ventricular diastolic dysfunction is normal. There is moderate pulmonary hypertension. Right ventricular systolic pressure is estimated at 57 mmHg. Other laboratory data, as of 10/19/2017, WBC 4.7, hemoglobin 10.6, hematocrit is 33.2, platelets are 250. PT is 10.2, INR is 0.9, and PTT 29.7. Sodium 141, potassium 5.4, chloride 109, CO2 22, BUN 44, creatinine 3.1, glucose 153, calcium 8.6, total bili 0.3, AST 27, ALT 29, alkaline phosphatase 92, troponin 0.076, total protein 6.7, albumin is 3.8, and proBNP is 5460. Other laboratory data, chest x-ray as of 10/19/2017, impression, limited right middle lobe infiltrate, appears to be developing and clinically correlate further, and no pleural effusion or additional infiltrate, bilateral. Other laboratory data as of 06/03/2017, sodium 141, potassium 5.3, chloride 108, CO2 22, BUN 27, creatinine 2.0, and glucose is 239. Prior to that, as of 05/25/2017, serum creatinine was 1.6. As of 05/24/2017, serum creatinine 1.9. As of 04/26/2017, serum creatinine 2.4. As of 07/31/2013, serum creatinine 1.4. As of 08/01/2016, creatinine 2.6. IMPRESSION: In summary, Mrs. Najera is a 77-year-old elderly female with a history of hypertension, diabetes, hyperlipidemia, chronic kidney disease with a baseline creatinine about 1.92 to 2.2 with normal ultrasound of kidneys as of 05/07/2017; right kidney 4.8 x 10.4, the left kidney 5.4 x 11 cm, and no hydronephrosis with left ventricular function about 45% to 50%, was admitted with diarrhea, cough, shortness of breath, and questionable fever, and is being treated for urinary traction infection as an outpatient with p.o. antibiotics for 5 days. The patient does not know the exact name of the antibiotic, with increased BUN and creatinine, increased potassium. 1. Acute renal failure on chronic kidney disease, most likely secondary to intravascular depletion. 2. Shortness of breath and cough, rule out acute bronchitis, rule out community-acquired pneumonia. 3. Hypertension. 4. Diabetes. 5. Hyperkalemia, most likely secondary to acute renal failure, cannot rule out type 4 right tubular acidosis. 6. Rule out urinary tract infection. PLAN: We will check urinalysis. We will check urine lytes, osmolality, urine creatinine, and also urine culture. We will start IV fluids half normal saline at 70 mL per hour and also Mucomyst inhaler every 6 hours, and continue antibiotics, Rocephin, and Zithromax as per Dr. Manpreet Austin, and also continue her blood pressure medicines, Zebeta and Isordil at this time. Continue DVT prophylaxis. Continue prednisone 20 mg p.o. daily. Continue to monitor Accu-Cheks. Continue Glucotrol and Januvia. Due to acute renal failure, we will decrease the Januvia to 25 mg p.o. daily until renal function improved, and consider Accu-Chek coverage. We will follow with you. Thank you for allowing me to participate in your patient's care. Kayexalate p.r.n. for hyperkalemia if not treated in the emergency room. Sonido Miguel MD
--- NOTE | 2017-10-22 10:29 | PN ---
DATE: 10/20/2017 FOLLOWUP RENAL CONSULTATION LOCATION: The patient is located in room 402, bed 2. REQUESTED BY: Manpreet Austin MD REASON FOR FOLLOWUP: Acute renal failure, chronic kidney disease. SUBJECTIVE: Mrs. Najera is a 77 years old elderly very pleasant female with a history of hypertension, diabetes, hyperlipidemia, chronic kidney disease, questionable CHF, hyperlipidemia, COPD, asthma, was admitted with a cough for about 4 days and shortness of breath and also loose bowel movement for about 1 week two to four times daily status post treatment for UTI. The patient is still complains of cough and shortness of breath, not associated any phlegm. No chest pain. No palpitation. No fever. No abdominal pain. No nausea, vomiting, diarrhea. No edema. OBJECTIVE: VITAL SIGNS: As follows; blood pressure this afternoon 150/79, pulse 83, respirations 16, temperature 97.9, saturation 99%. Height 4 feet 10 inches, weight is 136 pounds. GENERAL: Mrs. Najera is a 77 years old elderly female, moderately built, moderately nourished, not in distress. HEENT: Pupils are normal, reactive to light and accommodation. Conjunctivae pink. Sclerae are anicteric. Tongue is moist. Trachea is midline. No thyroid enlargement. LUNGS: Symmetric on both sides. Bilateral breath sounds present. Bilateral expiratory wheeze present. No crackles. CVS: [place] at the fifth intercostal space, midclavicular line. S1 and S2 audible. No murmur or gallop. ABDOMEN: Normal in appearance, soft, tympanic. No guarding. No rigidity. No hepatosplenomegaly. SAND FILLER: The patient is alert, awake, oriented x3. Nonfocal neuro examination. Cranial nerves II through XII grossly intact. Sensory and motor system is within normal limits. EXTREMITIES: No cyanosis, no clubbing, no edema. CURRENT MEDICATIONS: Include as follows; azithromycin 500 mg daily, Carafate 1 g p.o. b.i.d., Rocephin 1 g daily, DuoNeb inhaler and aspirin 81 mg daily, ferrous gluconate 324 mg p.o. daily, glipizide 10 mg daily, subcu heparin 5000 every 8 hours, Imdur 30 mg p.o. daily, Januvia 100 mg p.o. daily, pravastatin 40 mg p.o. daily, prednisone 20 mg p.o. daily, Protonix 40 mg p.o. daily, Tylenol and bisoprolol 5 mg p.o. daily. LABORATORY DATA: Include as follows, as of 10/20/2017; WBC 5.1, hemoglobin 10.7, hematocrit is 33.3, platelets 239. Sodium 140, potassium 5.7, chloride 107, CO2 of 21, BUN 45, creatinine 3.1, glucose 293, and calcium 8.9. Blood culture x2 negative day #1. ASSESSMENT AND PLAN: In summary, Mrs. Najera is a 77 years old elderly female with a history of hypertension, diabetes, hyperlipidemia, chronic kidney disease III, low back pain, chronic obstructive pulmonary disease, asthma, was admitted with cough and shortness of breath for 4 days and occasional loose bowel movement, status post urinary tract infection, treated with p.o. antibiotics as per the patient for 5 days, now admitted with persistent cough, not relieved with increased BUN and creatinine. 1. Acute renal failure on chronic kidney disease. 2. Cough associated with wheezing, rule out acute bronchitis, rule out pneumonia. 3. Acute exacerbation of asthma secondary to upper respiratory infections versus pneumonia. 4. Hypertension. 5. Diabetes. 6. Hyperkalemia secondary to chronic kidney disease and also steroids and hypercatabolism. Plan: We will give Kayexalate 30 g p.o. x1 dose and continue DuoNeb inhaler, continue IV antibiotics, Zithromax and Rocephin and also continue her current blood pressure medication bisoprolol. Sugars are slightly high, most likely secondary to her prednisone. Continue Januvia and try to adjust for creatinine clearance less than 15 and continue glipizide. Also consider Mucinex high-flow nebulizer. Follow up BMP in a.m. We will follow with you. Thank you for allowing me to participate in your patient's care. Sonido Miguel MD
[2017-10-22] MEDS: Azithromycin 500 MG in Sodium Chloride 0.9% 250 ML IVPB SCH (10:51)
[2017-10-22] MEDS: Pantoprazole 40 mg EC Tab PO SCH (10:53)
[2017-10-22] MEDS: guaiFENesin DM 200 mg-20 mg/10 ml UD PO SCH ×3 (10:53→17:55)
[2017-10-22] MEDS: Pravastatin Sodium 40 MG TAB PO SCH (10:57)
--- NOTE | 2017-10-22 19:53 | CP.PCM.PN ---
Subjective - Date & Time of Evaluation Date of Evaluation: 10/22/17 Time of Evaluation: 19:53 - Subjective Subjective: pt is seen and examined, follow up consult is dictated #[id number] Objective - Vital Signs/Intake and Output Vital Signs (last 24 hours): Temp Pulse Resp BP Pulse Ox 97.9 F 82 20 121/61 92 L 10/22/17 15:48 10/22/17 15:48 10/22/17 15:48 10/22/17 15:48 10/22/17 15:48 - Medications Medications: Current Medications Acetaminophen (Tylenol 325mg Tab) 650 mg PO Q6 PRN PRN Reason: Fever >100.4 F Albuterol/Ipratropium (Duoneb 3 Mg/0.5 Mg (3 Ml) Ud) 3 ml INH RQ6 PRN PRN Reason: Shortness of Breath Last Admin: 10/22/17 09:09 Dose: 3 ml Amlodipine Besylate (Norvasc) 5 mg PO DAILY [facility] Last Admin: 10/22/17 10:55 Dose: 5 mg Aspirin (Ecotrin) 81 mg PO DAILY [facility] Last Admin: 10/22/17 10:56 Dose: 81 mg Bisoprolol Fumarate (Zebeta) 10 mg PO DAILY [facility] Last Admin: 10/22/17 09:00 Dose: 10 mg Ferrous Gluconate (Fergon) 324 mg PO DAILY [facility] Last Admin: 10/22/17 10:57 Dose: 324 mg Glipizide (Glucotrol) 10 mg PO DAILY [facility] Last Admin: 10/22/17 10:56 Dose: 10 mg Guaifenesin/Dextromethorphan (Robitussin Dm) 10 ml PO TID [facility] Last Admin: 10/22/17 17:55 Dose: 10 ml Heparin Sodium (Porcine) (Heparin) 5,000 units SC Q8 [facility] PRN Reason: Protocol Last Admin: 10/22/17 17:52 Dose: 5,000 units Azithromycin 500 mg/ Sodium (Chloride) 250 mls @ 250 mls/hr IVPB DAILY [facility] PRN Reason: Protocol Last Admin: 10/22/17 10:51 Dose: 250 mls/hr Ceftriaxone Sodium 1 gm/ (Sodium Chloride) 100 mls @ 100 mls/hr IVPB DAILY [facility] PRN Reason: Protocol Last Admin: 10/22/17 10:52 Dose: 100 mls/hr Insulin Human Lispro (Humalog) 0 units SC ACHS [facility] PRN Reason: Protocol Last Admin: 10/22/17 17:54 Dose: 2 units Isosorbide Mononitrate (Imdur Er) 30 mg PO DAILY [facility] Last Admin: 10/22/17 10:55 Dose: 30 mg Pantoprazole Sodium (Protonix Ec Tab) 40 mg PO DAILY [facility] Last Admin: 10/22/17 10:53 Dose: 40 mg Pravastatin Sodium (Pravachol) 40 mg PO DAILY [facility] Last Admin: 10/22/17 10:57 Dose: 40 mg Prednisone (Prednisone Tab) 10 mg PO DAILY [facility] Last Admin: 10/22/17 10:55 Dose: 10 mg Sitagliptin Phosphate (Januvia) 100 mg PO DAILY [facility] Last Admin: 10/22/17 10:55 Dose: 100 mg Sucralfate (Carafate Tab) 1 gm PO BID [facility] Last Admin: 10/22/17 17:52 Dose: 1 gm Tramadol HCl (Ultram) 50 mg PO Q6 PRN PRN Reason: Pain, moderate (4-7) Last Admin: 10/21/17 21:47 Dose: 50 mg - Labs Labs: 10/22/17 05:09 10/22/17 05:09 PT 10.2 Seconds (9.8-13.1) 10/19/17 13:52 INR 0.9 (0.9-1.2) 10/19/17 13:52 APTT 29.7 Seconds (25.6-37.1) 10/19/17 13:52
[2017-10-23] MEDS: Albuterol-Ipratrop 3 mg / 0.5 (3 ml) UD INH PRN (01:28)
[2017-10-23 06:11] LABS: HEMOGLOBIN 10.2 g/dL (12.0-16.0); MEAN CELL VOLUME 93.7 fl (81.0-99.0); MEAN CORPUSCULAR HEMOGLOBIN 29.7 pg (27.0-31.0); MEAN CORPUSCULAR HGB CONC 31.7 g/dL (33.0-37.0); RBC 3.44 Mil/uL (3.80-5.20); RED CELL DISTRIBUTION WIDTH 15.2 % (11.5-14.5); WHITE BLOOD COUNT 5.8 K/uL (4.8-10.8)
--- NOTE | 2017-10-23 06:22 | PQF ---
PROVIDER RESPONSE TEXT: CHFrEF, CFH with reduced EF. Last echo 05/2017 with EF 45-50%. Acute on Chronic CHF with elevated pro-BNP REVIEWER QUERY TEXT: CHF Acuity and Type Congestive Heart Failure is documented in the Medical Record. Please document the type and acuity (in cludes probable or suspected) Such as: Type: -- Systolic -- Diastolic -- Combined -- Other, please specifY Acuity: -- Acute -- Chronic -- Acute on chronic -- Other, please specify VERSUS : NO:CHF:history only and not chronic Pro-BNP: 5460 CXR: Impression: Limited right middle lobe infiltrate appears to be developing. Clinically correlate further. No pleural effusion or additional infiltrate bilaterally. H and P and ER record: list a hx of . :CHF Renal consult: hx. of questionable CHF -Lasix 40 mg daily The patient's Clinical Indicators include: xxx Query created by: Charlotte Moreira on 10/22/2017 12:25 PM Electronically signed by: Dayna Uriarte 10/23/2017 6:20 AM
[2017-10-23 06:40] LABS: ALB/GLOB RATIO 1.2 (1.0-2.1); ALBUMIN 3.8 g/dL (3.5-5.0); CALCIUM 8.7 mg/dL (8.4-10.2)
[2017-10-23] MEDS: Insulin Lispro (humaLOG) 100 Units/ml Inj SC SCH ×4 (08:06→22:00)
[2017-10-23] MEDS: Pantoprazole 40 mg EC Tab PO SCH (08:37)
[2017-10-23] MEDS: Pravastatin Sodium 40 MG TAB PO SCH (08:39)
[2017-10-23] MEDS: guaiFENesin DM 200 mg-20 mg/10 ml UD PO SCH ×3 (08:41→18:01)
[2017-10-23] MEDS: Azithromycin 500 MG in Sodium Chloride 0.9% 250 ML IVPB SCH (08:43)
--- NOTE | 2017-10-23 08:58 | CON ---
DATE: 10/22/2017 FOLLOWUP RENAL CONSULTATION LOCATION: The patient is located in room 402, bed 2. REQUESTED BY: Dr. Manpreet Austin. REASON FOR FOLLOWUP: Acute renal failure, chronic kidney disease. HISTORY OF PRESENT ILLNESS: Mrs. Najera is about 77 years old elderly, very pleasant female with a history of asthma disease, diabetes, CHF, and chronic kidney disease, who was admitted with shortness of breath and wheeze for about 2 days prior to the admission. The patient still complains of shortness of breath and wheezing. Denies any chest pain. Denies any nausea, vomiting, diarrhea. Denies any fever or cough. Denies any expectoration. PHYSICAL EXAMINATION: VITAL SIGNS: This afternoon as follows: Blood pressure 121/61, pulse 82, respirations 20, temperature 97.9, saturation 92% to 97%. Height 4 feet 10 inches, weight is 136 pounds. GENERAL: Mrs. Najera is a 77 years old elderly female, moderately built, moderately nourished, not in distress. HEENT: Pupils normal, reactive to light and accommodation. Conjunctivae pink. Sclerae anicteric. Tongue is moist. Trachea is midline. LUNGS: Symmetric on both sides. Bilateral breath sounds present. Bilateral expiratory and inspiratory wheeze present. CVS: [place] at the fifth intercostal space and midclavicular line. S1, S2 audible. No murmur or gallop. ABDOMEN: Normal in appearance. Soft, tympanic. No guarding. No rigidity. No hepatosplenomegaly. THREAD CHECKER: The patient is alert, awake, oriented x3. Nonfocal examination. Cranial nerves II through XII grossly intact. Sensory and motor system is within normal limits. EXTREMITIES: No cyanosis, no clubbing, no edema. CURRENT MEDICATIONS: Include as follows: Azithromycin 500 mg daily, Carafate 1 gm p.o. b.i.d., Rocephin 1 gm daily, DuoNeb inhaler, aspirin 81 mg daily, ferrous gluconate 324 mg p.o. daily, glipizide 10 mg daily, subcu heparin 4000 every 8 hours, Isordil, isosorbide mononitrate which is Imdur 30 mg p.o. daily, Januvia 100 mg p.o. daily, amlodipine 5 mg daily, Pravachol 40 mg p.o. daily, prednisone 10 mg p.o. daily, Protonix 40 mg p.o. daily, Robitussin DM 10 mL p.o. t.i.d., Tylenol and tramadol and also bisoprolol 10 mg p.o. daily. LABORATORY DATA: Include as follows: As of 10/22/2017, WBC 6.9, hemoglobin 11.1, hematocrit is 34.4, platelets 244. Sodium 143, potassium is 5, chloride 109, CO 20, BUN 41, creatinine 2.5, glucose 79, calcium 8.9. Total bili 0.4, AST 27, ALT 21, alkaline phos of 96, total protein 7.4, albumin 4.2. Accu-Cheks 85, 172, and 152. Other laboratory data: Blood culture x2 negative day 3. IMPRESSION: In summary, Mrs. Najera is a 77 years old elderly female with a history of hypertension, diabetes, asthma, coronary artery disease, chronic kidney disease with shortness of breath and cough and weakness with increased BUN and creatinine. 1. Acute renal failure on chronic kidney disease. 2. Hypertension. 3. Acute exacerbation of asthma . 4. Rule out pneumonia, rule out acute bronchitis. PLAN: Continue IV antibiotics as per Dr. Manpreet Austin, [place], and also Zithromax, and continue prednisone. Continue DuoNeb inhaler. Continue her antihypertensive medications, amlodipine and bisoprolol and Imdur. Continue pravastatin for hyperlipidemia. Continue GI prophylaxis, Protonix. Also, continue DVT prophylaxis, subcu heparin 4000 every 8 hours. Repeat BMP in a.m. We will follow with you. Thank you for allowing me to participate in your patient's care. Sonido Miguel MD
--- NOTE | 2017-10-23 09:00 | PN ---
DATE: 10/22/2017 SUBJECTIVE: The patient is seen and examined. Interim events noted. Consults noted and appreciated. The patient remains in progressive care unit. The patient feels okay. The patient denies any significant shortness of breath. PHYSICAL EXAMINATION: GENERAL: The patient is in no acute distress. VITAL SIGNS: Stable. HEART: S1 and S2 normal and regular. LUNGS: Good bilateral air exchange. ABDOMEN: Soft and nontender. EXTREMITIES: No edema. No calf swelling. No tenderness. No acute ischemia. COSMETOLOGY INSTRUCTOR: Essentially unchanged. 00:40. The patient says that she seems that her 00:47 and color is blue. 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 DIAGNOSTIC DATA: Available diagnostic data reviewed. Telemetry monitoring does not reveal significant arrhythmias. ASSESSMENT AND PLAN: Overall, the patient is clinically and hemodynamically stable. Breathing is improved. Plan as ordered. Manpreet Austin MD
--- NOTE | 2017-10-23 09:14 | CP.PCM.PN ---
<Dayna Uriarte - Last Filed: 10/23/17 17:08> Subjective - Date & Time of Evaluation Date of Evaluation: 10/23/17 Time of Evaluation: 09:13 - Subjective Subjective: No acute overnight events. Pt doing well this morning. Denies chest pain, dyspnea, palpitations, n/v/c/d. Objective - Vital Signs/Intake and Output Vital Signs (last 24 hours): Temp Pulse Resp BP Pulse Ox 98.5 F 76 18 188/91 H 93 L 10/23/17 08:00 10/23/17 08:38 10/23/17 08:00 10/23/17 08:38 10/23/17 08:00 - Medications Medications: Current Medications Acetaminophen (Tylenol 325mg Tab) 650 mg PO Q6 PRN PRN Reason: Fever >100.4 F Albuterol/Ipratropium (Duoneb 3 Mg/0.5 Mg (3 Ml) Ud) 3 ml INH RQ6 PRN PRN Reason: Shortness of Breath Last Admin: 10/23/17 01:28 Dose: 3 ml Amlodipine Besylate (Norvasc) 5 mg PO DAILY [facility] Last Admin: 10/23/17 08:38 Dose: 5 mg Aspirin (Ecotrin) 81 mg PO DAILY [facility] Last Admin: 10/23/17 08:38 Dose: 81 mg Bisoprolol Fumarate (Zebeta) 10 mg PO DAILY [facility] Last Admin: 10/23/17 08:39 Dose: 10 mg Ferrous Gluconate (Fergon) 324 mg PO DAILY [facility] Last Admin: 10/23/17 08:40 Dose: 324 mg Glipizide (Glucotrol) 10 mg PO DAILY [facility] Last Admin: 10/23/17 08:38 Dose: 10 mg Guaifenesin/Dextromethorphan (Robitussin Dm) 10 ml PO TID [facility] Last Admin: 10/23/17 08:41 Dose: 10 ml Heparin Sodium (Porcine) (Heparin) 5,000 units SC Q8 [facility] PRN Reason: Protocol Last Admin: 10/23/17 08:40 Dose: 5,000 units Azithromycin 500 mg/ Sodium (Chloride) 250 mls @ 250 mls/hr IVPB DAILY [facility] PRN Reason: Protocol Last Admin: 10/23/17 08:43 Dose: 250 mls/hr Ceftriaxone Sodium 1 gm/ (Sodium Chloride) 100 mls @ 100 mls/hr IVPB DAILY [facility] PRN Reason: Protocol Last Admin: 10/23/17 08:44 Dose: 100 mls/hr Insulin Human Lispro (Humalog) 0 units SC ACHS [facility] PRN Reason: Protocol Last Admin: 10/23/17 08:06 Dose: Not Given Isosorbide Mononitrate (Imdur Er) 30 mg PO DAILY [facility] Last Admin: 10/23/17 08:40 Dose: 30 mg Pantoprazole Sodium (Protonix Ec Tab) 40 mg PO DAILY [facility] Last Admin: 10/23/17 08:37 Dose: 40 mg Pravastatin Sodium (Pravachol) 40 mg PO DAILY [facility] Last Admin: 10/23/17 08:39 Dose: 40 mg Prednisone (Prednisone Tab) 10 mg PO DAILY [facility] Last Admin: 10/23/17 08:39 Dose: 10 mg Sitagliptin Phosphate (Januvia) 100 mg PO DAILY [facility] Last Admin: 10/23/17 08:39 Dose: 100 mg Sucralfate (Carafate Tab) 1 gm PO BID [facility] Last Admin: 10/23/17 08:39 Dose: 1 gm Tramadol HCl (Ultram) 50 mg PO Q6 PRN PRN Reason: Pain, moderate (4-7) Last Admin: 10/23/17 09:02 Dose: 50 mg - Labs Labs: 10/23/17 05:00 10/23/17 05:00 PT 10.2 Seconds (9.8-13.1) 10/19/17 13:52 INR 0.9 (0.9-1.2) 10/19/17 13:52 APTT 29.7 Seconds (25.6-37.1) 10/19/17 13:52 - Constitutional Appears: No Acute Distress, Other (NC ) - Head Exam Head Exam: NORMAL INSPECTION - Eye Exam Eye Exam: EOMI - ENT Exam ENT Exam: Mucous Membranes Moist - Respiratory Exam Respiratory Exam: Wheezes (on expiration b/l), NORMAL BREATHING PATTERN. absent : Accessory Muscle Use, Respiratory Distress - Cardiovascular Exam Cardiovascular Exam: REGULAR RHYTHM, +S1, +S2 - GI/Abdominal Exam GI & Abdominal Exam: Soft, Normal Bowel Sounds. absent: Tenderness Assessment and Plan - Assessment and Plan (Free Text) Assessment: Assessment/Plan: 77 YO Female with PMHx of HTN, HLD, CAD, CHF, COPD, CKD, NIDDM, gastritis, is admitted for pneumonia with respiratory distress, and acute on chronic renal failure. -blood work reviewed; hyperkalemia resolved -Nephrology on consult -VS reviewed; labile BP -CXR sig for RML pneumonia; cont abx -plan as ordered Pt seen and examined with Dr. Austin <Manpreet Austin - Last Filed: 10/24/17 08:39> Objective - Vital Signs/Intake and Output Vital Signs (last 24 hours): Temp Pulse Resp BP Pulse Ox 97.8 F 74 18 170/75 H 94 L 10/24/17 04:59 10/24/17 04:59 10/24/17 04:59 10/24/17 04:59 10/24/17 04:59 - Medications Medications: Current Medications Acetaminophen (Tylenol 325mg Tab) 650 mg PO Q6 PRN PRN Reason: Fever >100.4 F Albuterol/Ipratropium (Duoneb 3 Mg/0.5 Mg (3 Ml) Ud) 3 ml INH RQ6 PRN PRN Reason: Shortness of Breath Last Admin: 10/24/17 05:06 Dose: 3 ml Amlodipine Besylate (Norvasc) 5 mg PO DAILY [facility] Last Admin: 10/23/17 08:38 Dose: 5 mg Aspirin (Ecotrin) 81 mg PO DAILY [facility] Last Admin: 10/23/17 08:38 Dose: 81 mg Bisoprolol Fumarate (Zebeta) 10 mg PO DAILY [facility] Last Admin: 10/23/17 08:39 Dose: 10 mg Ferrous Gluconate (Fergon) 324 mg PO DAILY [facility] Last Admin: 10/23/17 08:40 Dose: 324 mg Glipizide (Glucotrol) 10 mg PO DAILY [facility] Last Admin: 10/23/17 08:38 Dose: 10 mg Guaifenesin/Dextromethorphan (Robitussin Dm) 10 ml PO TID [facility] Last Admin: 10/23/17 18:01 Dose: 10 ml Heparin Sodium (Porcine) (Heparin) 5,000 units SC Q8 [facility] PRN Reason: Protocol Last Admin: 10/24/17 00:40 Dose: 5,000 units Azithromycin 500 mg/ Sodium (Chloride) 250 mls @ 250 mls/hr IVPB DAILY [facility] PRN Reason: Protocol Last Admin: 10/23/17 08:43 Dose: 250 mls/hr Ceftriaxone Sodium 1 gm/ (Sodium Chloride) 100 mls @ 100 mls/hr IVPB DAILY [facility] PRN Reason: Protocol Last Admin: 10/23/17 08:44 Dose: 100 mls/hr Insulin Human Lispro (Humalog) 0 units SC ACHS [facility] PRN Reason: Protocol Last Admin: 10/23/17 22:00 Dose: 2 units Isosorbide Mononitrate (Imdur Er) 30 mg PO DAILY [facility] Last Admin: 10/23/17 08:40 Dose: 30 mg Losartan Potassium (Cozaar) 25 mg PO DAILY [facility] Pantoprazole Sodium (Protonix Ec Tab) 40 mg PO DAILY [facility] Last Admin: 10/23/17 08:37 Dose: 40 mg Pravastatin Sodium (Pravachol) 40 mg PO DAILY [facility] Last Admin: 10/23/17 08:39 Dose: 40 mg Prednisone (Prednisone Tab) 10 mg PO DAILY [facility] Last Admin: 10/23/17 08:39 Dose: 10 mg Sitagliptin Phosphate (Januvia) 100 mg PO DAILY [facility] Last Admin: 10/23/17 08:39 Dose: 100 mg Sucralfate (Carafate Tab) 1 gm PO BID [facility] Last Admin: 10/23/17 17:54 Dose: 1 gm Tramadol HCl (Ultram) 50 mg PO Q6 PRN PRN Reason: Pain, moderate (4-7) Last Admin: 10/23/17 09:02 Dose: 50 mg - Labs Labs: 10/23/17 05:00 10/23/17 05:00 PT 10.2 Seconds (9.8-13.1) 10/19/17 13:52 INR 0.9 (0.9-1.2) 10/19/17 13:52 APTT 29.7 Seconds (25.6-37.1) 10/19/17 13:52 Assessment and Plan - Assessment and Plan (Free Text) Assessment: Patient was personally seen and examined by me in rounds with residents. Available labs and diagnostic data reviewed. Case, Patient's condition and management plan discussed with residents in rounds. Agree with resident's progress note. Plan: As ordered.
--- NOTE | 2017-10-23 09:52 | CP.PCM.PN ---
Subjective - Date & Time of Evaluation Date of Evaluation: 10/23/17 Time of Evaluation: 09:52 - Subjective Subjective: pt is seen and examined, follow up consult is dictated #[id number] Objective - Vital Signs/Intake and Output Vital Signs (last 24 hours): Temp Pulse Resp BP Pulse Ox 98.5 F 76 18 188/91 H 93 L 10/23/17 08:00 10/23/17 08:38 10/23/17 08:00 10/23/17 08:38 10/23/17 08:00 - Medications Medications: Current Medications Acetaminophen (Tylenol 325mg Tab) 650 mg PO Q6 PRN PRN Reason: Fever >100.4 F Albuterol/Ipratropium (Duoneb 3 Mg/0.5 Mg (3 Ml) Ud) 3 ml INH RQ6 PRN PRN Reason: Shortness of Breath Last Admin: 10/23/17 01:28 Dose: 3 ml Amlodipine Besylate (Norvasc) 5 mg PO DAILY [facility] Last Admin: 10/23/17 08:38 Dose: 5 mg Aspirin (Ecotrin) 81 mg PO DAILY [facility] Last Admin: 10/23/17 08:38 Dose: 81 mg Bisoprolol Fumarate (Zebeta) 10 mg PO DAILY [facility] Last Admin: 10/23/17 08:39 Dose: 10 mg Ferrous Gluconate (Fergon) 324 mg PO DAILY [facility] Last Admin: 10/23/17 08:40 Dose: 324 mg Glipizide (Glucotrol) 10 mg PO DAILY [facility] Last Admin: 10/23/17 08:38 Dose: 10 mg Guaifenesin/Dextromethorphan (Robitussin Dm) 10 ml PO TID [facility] Last Admin: 10/23/17 08:41 Dose: 10 ml Heparin Sodium (Porcine) (Heparin) 5,000 units SC Q8 [facility] PRN Reason: Protocol Last Admin: 10/23/17 08:40 Dose: 5,000 units Azithromycin 500 mg/ Sodium (Chloride) 250 mls @ 250 mls/hr IVPB DAILY [facility] PRN Reason: Protocol Last Admin: 10/23/17 08:43 Dose: 250 mls/hr Ceftriaxone Sodium 1 gm/ (Sodium Chloride) 100 mls @ 100 mls/hr IVPB DAILY [facility] PRN Reason: Protocol Last Admin: 10/23/17 08:44 Dose: 100 mls/hr Insulin Human Lispro (Humalog) 0 units SC ACHS [facility] PRN Reason: Protocol Last Admin: 10/23/17 08:06 Dose: Not Given Isosorbide Mononitrate (Imdur Er) 30 mg PO DAILY [facility] Last Admin: 10/23/17 08:40 Dose: 30 mg Pantoprazole Sodium (Protonix Ec Tab) 40 mg PO DAILY [facility] Last Admin: 10/23/17 08:37 Dose: 40 mg Pravastatin Sodium (Pravachol) 40 mg PO DAILY [facility] Last Admin: 10/23/17 08:39 Dose: 40 mg Prednisone (Prednisone Tab) 10 mg PO DAILY [facility] Last Admin: 10/23/17 08:39 Dose: 10 mg Sitagliptin Phosphate (Januvia) 100 mg PO DAILY [facility] Last Admin: 10/23/17 08:39 Dose: 100 mg Sucralfate (Carafate Tab) 1 gm PO BID [facility] Last Admin: 10/23/17 08:39 Dose: 1 gm Tramadol HCl (Ultram) 50 mg PO Q6 PRN PRN Reason: Pain, moderate (4-7) Last Admin: 10/23/17 09:02 Dose: 50 mg - Labs Labs: 10/23/17 05:00 10/23/17 05:00 PT 10.2 Seconds (9.8-13.1) 10/19/17 13:52 INR 0.9 (0.9-1.2) 10/19/17 13:52 APTT 29.7 Seconds (25.6-37.1) 10/19/17 13:52
[2017-10-24] MEDS: Albuterol-Ipratrop 3 mg / 0.5 (3 ml) UD INH PRN (05:06)
[2017-10-24] MEDS: Insulin Lispro (humaLOG) 100 Units/ml Inj SC SCH ×4 (09:00→21:59)
--- NOTE | 2017-10-24 09:19 | PN ---
DATE: 10/23/2017 FOLLOWUP RENAL CONSULTATION LOCATION: The patient is located room 402, bed 2. REQUESTED BY: Manpreet Austin MD REASON FOR FOLLOWUP: Acute renal failure, chronic kidney disease. SUBJECTIVE: Mrs. Najera is a 77-year-old elderly female with a history of hypertension, diabetes, coronary artery disease, CHF, asthma, COPD who was admitted with cough, shortness of breath for a few days prior to the admission and also back pain. The patient still complains of cough but slightly better today, not in distress. PHYSICAL EXAMINATION: VITAL SIGNS: As follows. This morning, blood pressure 188/91, pulse 76, respirations 20, temperature 98.3, saturation 99%. Height 4 feet 10 inches. Weight is 136 pounds. GENERAL: Mrs. Najera is a 77-year-old elderly female, moderate built, moderate nourished, not in distress. HEENT: Pupils are normal and reactive to light and accommodation. Conjunctivae are pink. Sclerae are anicteric. Tongue is moist. Trachea is midline. LUNGS: Symmetry on both sides. Bilateral breath sounds present. Bilateral expiratory wheeze present. CVS: [place] at the fifth intercostal space, midclavicular line. S1, S2 audible. No murmur. No gallop. ABDOMEN: Normal in appearance. Soft, tympanic. No guarding. No rigidity. No hepatosplenomegaly. RAG PRODUCTION WORKER: The patient is alert, awake and oriented x3. Nonfocal neuro examination. Cranial nerves II-XII grossly intact. Sensory and motor system is within normal limits. EXTREMITIES: No cyanosis, no clubbing, no edema. CURRENT MEDICATIONS: Include as follows: Azithromycin 500 mg IV daily, Carafate 1 gm p.o. b.i.d., Rocephin 1 gm daily, DuoNeb inhaler, aspirin 81 mg daily, ferrous gluconate 324 mg p.o. daily, glipizide 10 mg p.o. daily, subcu heparin 5000 every 8 hours, Humalog per sliding scale, Imdur 30 mg p.o. daily, Januvia 100 mg p.o. daily, Norvasc 5 mg p.o. daily, pravastatin 40 mg p.o. daily, prednisone 10 mg p.o. daily, Protonix 40 mg p.o. daily, Robitussin DM 10 mL p.o. t.i.d., Tylenol, tramadol 50 mg p.o. every 6 hours p.r.n., Zebeta 10 mg p.o. daily. CURRENT LABORATORY DATA: Include as follows as of 10/23/2017: WBC 5.8, hemoglobin 10.2, hematocrit is 32.2, platelets 225. Sodium 143, potassium 4.5, chloride 111, CO2 of 22, BUN 35, creatinine 2.1, glucose 65, calcium 8.7. Total bili 0.4, AST 27, ALT 29, alkaline phosphatase 89, total protein 6.8, albumin is 3.8. Blood culture x2 negative, day 4. OTHER REPORTS: No other reports available. In summary, Mrs. Najera is a 77-year-old elderly female with a history of hypertension, diabetes, coronary artery disease, congestive heart failure, chronic obstructive pulmonary disease, asthma, chronic kidney disease 3 with increased blood urea nitrogen and creatinine, cough, shortness of breath and wheezing. 1. Acute renal failure on chronic kidney disease, most likely secondary to intravascular depletion, secondary to urinary tract infection, cannot rule out interstitial nephritis. 2. Acute exacerbation of asthma. 3. Rule out bronchitis, rule out pneumonia. 4. Hypertension. 5. Diabetes. PLAN: Increase p.o. fluid intake. Continue DuoNeb inhaler. Continue Zithromax and Rocephin. Continue Solu-Medrol. Continue prednisone. The patient is off Solu-Medrol and to continue prednisone 10 mg daily. Continue her current antihypertensive medications, Norvasc and Zebeta. Renal function is slowly improving. We will follow with you. Thank you for allowing me to participate in your patient's care. Sonido Miguel MD
[2017-10-24] MEDS: Pantoprazole 40 mg EC Tab PO SCH (09:29)
[2017-10-24] MEDS: Pravastatin Sodium 40 MG TAB PO SCH (09:29)
[2017-10-24] MEDS: Azithromycin 500 MG in Sodium Chloride 0.9% 250 ML IVPB SCH (09:30)
[2017-10-24] MEDS: guaiFENesin DM 200 mg-20 mg/10 ml UD PO SCH ×3 (09:32→16:21)
--- NOTE | 2017-10-24 10:20 | CP.PCM.PN ---
<Dayna Uriarte - Last Filed: 10/24/17 11:54> Subjective - Date & Time of Evaluation Date of Evaluation: 10/24/17 Time of Evaluation: 10:18 - Subjective Subjective: Yesterday pt tried to elope. Currently on 1:1. No acute overnight events. Pt seen and examined this AM by bedside. Breathing is improving per pt. Objective - Vital Signs/Intake and Output Vital Signs (last 24 hours): Temp Pulse Resp BP Pulse Ox 97.7 F 73 20 180/83 H 100 10/24/17 08:44 10/24/17 08:44 10/24/17 08:44 10/24/17 08:44 10/24/17 08:44 - Medications Medications: Current Medications Acetaminophen (Tylenol 325mg Tab) 650 mg PO Q6 PRN PRN Reason: Fever >100.4 F Albuterol/Ipratropium (Duoneb 3 Mg/0.5 Mg (3 Ml) Ud) 3 ml INH RQ6 PRN PRN Reason: Shortness of Breath Last Admin: 10/24/17 05:06 Dose: 3 ml Amlodipine Besylate (Norvasc) 5 mg PO DAILY ON [facility] OF [facility] Last Admin: 10/24/17 09:29 Dose: 5 mg Aspirin (Ecotrin) 81 mg PO DAILY ON [facility] Last Admin: 10/24/17 09:28 Dose: 81 mg Bisoprolol Fumarate (Zebeta) 10 mg PO DAILY [facility] Last Admin: 10/24/17 09:33 Dose: 10 mg Ferrous Gluconate (Fergon) 324 mg PO DAILY [facility] Last Admin: 10/24/17 09:29 Dose: 324 mg Glipizide (Glucotrol) 10 mg PO DAILY [facility] Last Admin: 10/23/17 08:38 Dose: 10 mg Guaifenesin/Dextromethorphan (Robitussin Dm) 10 ml PO TID ON [facility] OF [facility] Last Admin: 10/24/17 09:32 Dose: 10 ml Heparin Sodium (Porcine) (Heparin) 5,000 units SC Q8 [facility] PRN Reason: Protocol Last Admin: 10/24/17 00:40 Dose: 5,000 units Azithromycin 500 mg/ Sodium (Chloride) 250 mls @ 250 mls/hr IVPB DAILY [facility] PRN Reason: Protocol Last Admin: 10/24/17 09:30 Dose: 250 mls/hr Ceftriaxone Sodium 1 gm/ (Sodium Chloride) 100 mls @ 100 mls/hr IVPB DAILY [facility] PRN Reason: Protocol Last Admin: 10/24/17 09:31 Dose: 100 mls/hr Insulin Human Lispro (Humalog) 0 units SC ACHS ON [facility] PRN Reason: Protocol Last Admin: 10/23/17 22:00 Dose: 2 units Isosorbide Mononitrate (Imdur Er) 30 mg PO DAILY [facility] Last Admin: 10/24/17 09:30 Dose: 30 mg Losartan Potassium (Cozaar) 25 mg PO DAILY [facility] Last Admin: 10/24/17 09:28 Dose: 25 mg Pantoprazole Sodium (Protonix Ec Tab) 40 mg PO DAILY [facility] Last Admin: 10/24/17 09:29 Dose: 40 mg Pravastatin Sodium (Pravachol) 40 mg PO DAILY [facility] Last Admin: 10/24/17 09:29 Dose: 40 mg Prednisone (Prednisone Tab) 10 mg PO DAILY [facility] Last Admin: 10/24/17 09:29 Dose: 10 mg Sitagliptin Phosphate (Januvia) 100 mg PO DAILY [facility] Last Admin: 10/24/17 09:29 Dose: 100 mg Sucralfate (Carafate Tab) 1 gm PO BID ON [facility] Last Admin: 10/24/17 09:28 Dose: 1 gm Tramadol HCl (Ultram) 50 mg PO Q6 PRN PRN Reason: Pain, moderate (4-7) Last Admin: 10/23/17 09:02 Dose: 50 mg - Labs Labs: 10/23/17 05:00 10/23/17 05:00 PT 10.2 Seconds (9.8-13.1) 10/19/17 13:52 INR 0.9 (0.9-1.2) 10/19/17 13:52 APTT 29.7 Seconds (25.6-37.1) 10/19/17 13:52 - Constitutional Appears: No Acute Distress, Other (NC on 2L) - Head Exam Head Exam: NORMAL INSPECTION - Eye Exam Eye Exam: Normal appearance - ENT Exam ENT Exam: Mucous Membranes Moist - Respiratory Exam Respiratory Exam: Clear to Ausculation Bilateral, Wheezes (b/l on expiration ) - Cardiovascular Exam Cardiovascular Exam: REGULAR RHYTHM, +S1, +S2 - GI/Abdominal Exam GI & Abdominal Exam: Soft, Normal Bowel Sounds. absent: Tenderness - Extremities Exam Extremities Exam: Normal Inspection - Neurological Exam Neurological Exam: Alert, Awake Assessment and Plan (1) Acute kidney injury Status: Acute (2) Acute hyperkalemia Status: Acute (3) COPD bronchitis Status: Acute (4) Diabetes mellitus type 2 in obese Status: Chronic (5) Pneumonia Status: Acute (6) CHF (congestive heart failure) Status: Chronic (7) Hypertension Status: Chronic - Assessment and Plan (Free Text) Assessment: Assessment/Plan: 77 YO Female with PMHx of HTN, HLD, CAD, CHF, COPD, CKD, NIDDM, gastritis, is admitted for pneumonia with respiratory distress, and acute on chronic renal failure. -blood work reviewed; hyperkalemia resolved -Nephrology on consult; renal function improving -VS reviewed; labile BP -CXR sig for RML pneumonia; cont abx -Pt on board, TCU -pending acceptance to TCU -d/c 1:1 -plan as ordered Pt seen and examined with Dr. Austin <Manpreet Austin - Last Filed: 10/25/17 14:01> Objective - Vital Signs/Intake and Output Vital Signs (last 24 hours): Temp Pulse Resp BP Pulse Ox 98.1 F 72 18 183/76 H 95 10/25/17 12:54 10/25/17 12:54 10/25/17 12:54 10/25/17 12:54 10/25/17 12:54 - Medications Medications: Current Medications Acetaminophen (Tylenol 325mg Tab) 650 mg PO Q6 PRN PRN Reason: Fever >100.4 F Albuterol/Ipratropium (Duoneb 3 Mg/0.5 Mg (3 Ml) Ud) 3 ml INH RQ6 PRN PRN Reason: Shortness of Breath Last Admin: 10/24/17 05:06 Dose: 3 ml Amlodipine Besylate (Norvasc) 10 mg PO DAILY ON [facility] Aspirin (Ecotrin) 81 mg PO DAILY [facility] Last Admin: 10/24/17 09:28 Dose: 81 mg Bisoprolol Fumarate (Zebeta) 10 mg PO DAILY [facility] Last Admin: 10/25/17 10:30 Dose: 10 mg Ferrous Gluconate (Fergon) 324 mg PO DAILY [facility] Last Admin: 10/25/17 10:28 Dose: 324 mg Glipizide (Glucotrol) 10 mg PO DAILY [facility] Last Admin: 10/25/17 10:28 Dose: 10 mg Guaifenesin/Dextromethorphan (Robitussin Dm) 10 ml PO TID [facility] Last Admin: 10/25/17 10:36 Dose: 10 ml Heparin Sodium (Porcine) (Heparin) 5,000 units SC Q8 [facility] PRN Reason: Protocol Last Admin: 10/25/17 10:30 Dose: 5,000 units Azithromycin 500 mg/ Sodium (Chloride) 250 mls @ 250 mls/hr IVPB DAILY [facility] PRN Reason: Protocol Last Admin: 10/25/17 10:34 Dose: 250 mls/hr Ceftriaxone Sodium 1 gm/ (Sodium Chloride) 100 mls @ 100 mls/hr IVPB DAILY [facility] PRN Reason: Protocol Last Admin: 10/25/17 10:35 Dose: 100 mls/hr Insulin Human Lispro (Humalog) 0 units SC ACHS [facility] PRN Reason: Protocol Last Admin: 10/24/17 21:59 Dose: Not Given Isosorbide Mononitrate (Imdur Er) 30 mg PO DAILY [facility] Last Admin: 10/25/17 10:29 Dose: 30 mg Losartan Potassium (Cozaar) 25 mg PO DAILY [facility] Last Admin: 10/25/17 10:28 Dose: 25 mg Pantoprazole Sodium (Protonix Ec Tab) 40 mg PO DAILY [facility] Last Admin: 10/25/17 10:29 Dose: 40 mg Pravastatin Sodium (Pravachol) 40 mg PO DAILY [facility] Last Admin: 10/25/17 10:29 Dose: 40 mg Prednisone (Prednisone Tab) 10 mg PO DAILY [facility] Last Admin: 10/25/17 10:29 Dose: 10 mg Sitagliptin Phosphate (Januvia) 25 mg PO DAILY [facility] Sucralfate (Carafate Tab) 1 gm PO BID ON [facility] Last Admin: 10/25/17 10:26 Dose: 1 gm Tramadol HCl (Ultram) 50 mg PO Q6 PRN PRN Reason: Pain, moderate (4-7) Last Admin: 10/23/17 09:02 Dose: 50 mg - Labs Labs: 10/25/17 13:45 10/23/17 05:00 PT 10.2 Seconds (9.8-13.1) 10/19/17 13:52 INR 0.9 (0.9-1.2) 10/19/17 13:52 APTT 29.7 Seconds (25.6-37.1) 10/19/17 13:52 Assessment and Plan - Assessment and Plan (Free Text) Assessment: Patient was personally seen and examined by me in rounds with residents. Available labs and diagnostic data reviewed. Case, Patient's condition and management plan discussed with residents in rounds. Agree with resident's progress note. Plan: As ordered.
--- NOTE | 2017-10-24 19:40 | CP.PCM.PN ---
Subjective - Date & Time of Evaluation Date of Evaluation: 10/24/17 Time of Evaluation: 19:40 - Subjective Subjective: pt is seen and examined, follow up consult is dictated # check cbc, bmp in am, urine c/s Objective - Vital Signs/Intake and Output Vital Signs (last 24 hours): Temp Pulse Resp BP Pulse Ox 98.7 F 76 20 173/81 H 97 10/24/17 16:00 10/24/17 16:00 10/24/17 16:00 10/24/17 16:00 10/24/17 16:00 - Medications Medications: Current Medications Acetaminophen (Tylenol 325mg Tab) 650 mg PO Q6 PRN PRN Reason: Fever >100.4 F Albuterol/Ipratropium (Duoneb 3 Mg/0.5 Mg (3 Ml) Ud) 3 ml INH RQ6 PRN PRN Reason: Shortness of Breath Last Admin: 10/24/17 05:06 Dose: 3 ml Amlodipine Besylate (Norvasc) 5 mg PO DAILY [facility] Last Admin: 10/24/17 09:29 Dose: 5 mg Aspirin (Ecotrin) 81 mg PO DAILY [facility] Last Admin: 10/24/17 09:28 Dose: 81 mg Bisoprolol Fumarate (Zebeta) 10 mg PO DAILY [facility] Last Admin: 10/24/17 09:33 Dose: 10 mg Ferrous Gluconate (Fergon) 324 mg PO DAILY [facility] Last Admin: 10/24/17 09:29 Dose: 324 mg Glipizide (Glucotrol) 10 mg PO DAILY [facility] Last Admin: 10/24/17 09:00 Dose: 10 mg Guaifenesin/Dextromethorphan (Robitussin Dm) 10 ml PO TID [facility] Last Admin: 10/24/17 16:21 Dose: 10 ml Heparin Sodium (Porcine) (Heparin) 5,000 units SC Q8 [facility] PRN Reason: Protocol Last Admin: 10/24/17 16:18 Dose: 5,000 units Azithromycin 500 mg/ Sodium (Chloride) 250 mls @ 250 mls/hr IVPB DAILY [facility] PRN Reason: Protocol Last Admin: 10/24/17 09:30 Dose: 250 mls/hr Ceftriaxone Sodium 1 gm/ (Sodium Chloride) 100 mls @ 100 mls/hr IVPB DAILY [facility] PRN Reason: Protocol Last Admin: 10/24/17 09:31 Dose: 100 mls/hr Insulin Human Lispro (Humalog) 0 units SC ACHS [facility] PRN Reason: Protocol Last Admin: 10/24/17 16:21 Dose: Not Given Isosorbide Mononitrate (Imdur Er) 30 mg PO DAILY [facility] Last Admin: 10/24/17 09:30 Dose: 30 mg Losartan Potassium (Cozaar) 25 mg PO DAILY [facility] Last Admin: 10/24/17 09:28 Dose: 25 mg Pantoprazole Sodium (Protonix Ec Tab) 40 mg PO DAILY [facility] Last Admin: 10/24/17 09:29 Dose: 40 mg Pravastatin Sodium (Pravachol) 40 mg PO DAILY [facility] Last Admin: 10/24/17 09:29 Dose: 40 mg Prednisone (Prednisone Tab) 10 mg PO DAILY [facility] Last Admin: 10/24/17 09:29 Dose: 10 mg Sitagliptin Phosphate (Januvia) 100 mg PO DAILY [facility] Last Admin: 10/24/17 09:29 Dose: 100 mg Sucralfate (Carafate Tab) 1 gm PO BID [facility] Last Admin: 10/24/17 16:17 Dose: 1 gm Tramadol HCl (Ultram) 50 mg PO Q6 PRN PRN Reason: Pain, moderate (4-7) Last Admin: 10/23/17 09:02 Dose: 50 mg - Labs Labs: 10/23/17 05:00 10/23/17 05:00 PT 10.2 Seconds (9.8-13.1) 10/19/17 13:52 INR 0.9 (0.9-1.2) 10/19/17 13:52 APTT 29.7 Seconds (25.6-37.1) 10/19/17 13:52
--- NOTE | 2017-10-25 03:15 | PN ---
DATE: 10/24/2017 FOLLOWUP RENAL CONSULTATION LOCATION: The patient is located in room 402, bed 2. REQUESTED BY: Manpreet Austin MD REASON FOR FOLLOWUP: Acute renal failure, chronic kidney disease, shortness of breath. SUBJECTIVE: Mrs. Najera is a 77-year-old elderly female with a past medical history significant for hypertension, hyperlipidemia, diabetes type 2, coronary artery disease, CHF, COPD, CKD 3 who was admitted with a chief complaint of cough, shortness of breath, subjective fever for about four days prior to the admission. The patient's symptoms started four days prior to the admission with nonproductive cough. In subsequent days, symptoms got worse and with the difficulty breathing, orthopnea and subjective fever. The patient also complains of back pain. Denies any chest pain, palpitation. Denies any nausea, vomiting, diarrhea. Denies any dizziness. The patient claims feeling slightly better. PHYSICAL EXAMINATION: VITAL SIGNS: As follows: Blood pressure 173/81, pulse 76, respirations 20, temperature 98.7, and saturation 97%. Height 4 feet 10 inches. Weight is 136 pounds. GENERAL: Mrs. Najera is a 77-year-old elderly female, moderate built, moderate nourished, not in acute distress. HEENT: Pupils are normal and reactive to light and accommodation. Conjunctivae are pink. Sclerae are anicteric. Tongue is moist. Trachea is midline. LUNGS: Symmetric on both sides. Bilateral breath sounds present. Bilateral expiratory wheeze present, left more than right. CVS: Logan at the fifth intercostal space, mid clavicular line. S1, S2 audible. No murmur or gallop. ABDOMEN: Normal in appearance. Soft, tympanic. No guarding. No rigidity. No hepatosplenomegaly. MEDICAL POLICY SPECIALIST: The patient is alert, awake, oriented x3. Nonfocal neuro examination. Cranial nerves II-XII grossly intact. Sensory and motor system is within normal limits. EXTREMITIES: No cyanosis. No clubbing. No edema. CURRENT MEDICATIONS: Include as follows: Azithromycin 500 mg daily, Rocephin 1 gm daily, Cozaar 25 mg p.o. daily, DuoNeb inhalers, aspirin 81 mg daily, ferrous gluconate 324 mg p.o. daily, glipizide 10 mg daily, subcutaneous heparin 5000 units every 8 hours, Imdur 30 mg p.o. daily, Januvia 100 mg p.o. daily, amlodipine 5 mg daily, Pravachol 40 mg p.o. daily, prednisone 10 mg p.o. daily, Protonix 40 mg p.o. daily, Robitussin DM 10 mL p.o. t.i.d., Tylenol, tramadol 50 mg p.o. every 6 hours p.r.n. and bisoprolol 10 mg p.o. daily. LABORATORY DATA: No new labs are available today. Accu-Cheks 99, 267, and 187. ASSESSMENT: In summary, Mrs. Najera is 77-year-old elderly female, moderate built, moderate nourished with hypertension, diabetes, hyperlipidemia, chronic kidney disease, coronary artery disease, congestive heart failure, with nonproductive cough, shortness of breath and increased blood urea nitrogen and creatinine. 1. Acute renal failure on chronic kidney disease stage 3, most likely secondary to acute tubular necrosis, cannot rule out acute interstitial nephritis secondary to recent antibiotic use. 2. Exacerbation of asthma. 3. Acute bronchitis, rule out pneumonia. 4. Hypertension. 5. Diabetes. PLAN: Continue IV antibiotics, Zithromax and Rocephin. Continue current blood pressure medications including losartan 25 mg daily, bisoprolol 10 mg, amlodipine 10 mg and Imdur. Also continue DuoNeb inhaler. Continue DVT prophylaxis subcutaneous heparin 5000 units every 8 hours and also GI prophylaxis Protonix 40 mg p.o. daily and continue prednisone 10 mg daily. Repeat CBC, BMP in a.m. We will follow up with you. Thank you for allowing me to participate in your patient's care. Sonido Miguel MD
[2017-10-25] MEDS: Pantoprazole 40 mg EC Tab PO SCH (10:29)
[2017-10-25] MEDS: Pravastatin Sodium 40 MG TAB PO SCH (10:29)
[2017-10-25] MEDS: Azithromycin 500 MG in Sodium Chloride 0.9% 250 ML IVPB SCH (10:34)
[2017-10-25] MEDS: guaiFENesin DM 200 mg-20 mg/10 ml UD PO SCH ×3 (10:36→17:47)
--- NOTE | 2017-10-25 11:32 | RAD ---
Date of service: 10/25/2017 HISTORY: compare with previous COMPARISON: Chest radiographs 10/19/2017. TECHNIQUE: Chest PA and lateral FINDINGS: LUNGS: Peripheral interstitial markings appear increased particularly at the left side and central hilar vascularity is somewhat more prominent. Therefore active CHF is considered. Patchy density at the medial right base is slightly increased but this could be due to overlap with vascular markings here. PLEURA: Pneumothorax bilaterally. No right pleural effusion. Trace of pleural effusion evident. CARDIOVASCULAR: Cardiac size is stable however high central hilar vascular markings are increased as discussed above, with increased peripheral interstitium suspicious for active CHF. OSSEOUS STRUCTURES: No significant abnormalities. VISUALIZED UPPER ABDOMEN: Normal. OTHER FINDINGS: None. IMPRESSION: Mild active CHF suggested. Borderline increased medial right basilar patchy density. Trace left pleural effusion.
--- NOTE | 2017-10-25 13:08 | CP.PCM.PN ---
Subjective - Date & Time of Evaluation Date of Evaluation: 10/25/17 Time of Evaluation: 13:08 - Subjective Subjective: pt is seen and examined, follow up consult is dictated #[id number] Objective - Vital Signs/Intake and Output Vital Signs (last 24 hours): Temp Pulse Resp BP Pulse Ox 98.1 F 72 18 183/76 H 95 10/25/17 12:54 10/25/17 12:54 10/25/17 12:54 10/25/17 12:54 10/25/17 12:54 - Medications Medications: Current Medications Acetaminophen (Tylenol 325mg Tab) 650 mg PO Q6 PRN PRN Reason: Fever >100.4 F Albuterol/Ipratropium (Duoneb 3 Mg/0.5 Mg (3 Ml) Ud) 3 ml INH RQ6 PRN PRN Reason: Shortness of Breath Last Admin: 10/24/17 05:06 Dose: 3 ml Amlodipine Besylate (Norvasc) 5 mg PO DAILY [facility] Last Admin: 10/25/17 10:28 Dose: 5 mg Amlodipine Besylate (Norvasc) 10 mg PO DAILY [facility] Aspirin (Ecotrin) 81 mg PO DAILY [facility] Last Admin: 10/24/17 09:28 Dose: 81 mg Bisoprolol Fumarate (Zebeta) 10 mg PO DAILY [facility] Last Admin: 10/25/17 10:30 Dose: 10 mg Ferrous Gluconate (Fergon) 324 mg PO DAILY [facility] Last Admin: 10/25/17 10:28 Dose: 324 mg Glipizide (Glucotrol) 10 mg PO DAILY [facility] Last Admin: 10/25/17 10:28 Dose: 10 mg Guaifenesin/Dextromethorphan (Robitussin Dm) 10 ml PO TID [facility] Last Admin: 10/25/17 10:36 Dose: 10 ml Heparin Sodium (Porcine) (Heparin) 5,000 units SC Q8 [facility] PRN Reason: Protocol Last Admin: 10/25/17 10:30 Dose: 5,000 units Azithromycin 500 mg/ Sodium (Chloride) 250 mls @ 250 mls/hr IVPB DAILY [facility] PRN Reason: Protocol Last Admin: 10/25/17 10:34 Dose: 250 mls/hr Ceftriaxone Sodium 1 gm/ (Sodium Chloride) 100 mls @ 100 mls/hr IVPB DAILY [facility] PRN Reason: Protocol Last Admin: 10/25/17 10:35 Dose: 100 mls/hr Insulin Human Lispro (Humalog) 0 units SC ACHS [facility] PRN Reason: Protocol Last Admin: 10/24/17 21:59 Dose: Not Given Isosorbide Mononitrate (Imdur Er) 30 mg PO DAILY [facility] Last Admin: 10/25/17 10:29 Dose: 30 mg Losartan Potassium (Cozaar) 25 mg PO DAILY [facility] Last Admin: 10/25/17 10:28 Dose: 25 mg Pantoprazole Sodium (Protonix Ec Tab) 40 mg PO DAILY [facility] Last Admin: 10/25/17 10:29 Dose: 40 mg Pravastatin Sodium (Pravachol) 40 mg PO DAILY [facility] Last Admin: 10/25/17 10:29 Dose: 40 mg Prednisone (Prednisone Tab) 10 mg PO DAILY [facility] Last Admin: 10/25/17 10:29 Dose: 10 mg Sitagliptin Phosphate (Januvia) 100 mg PO DAILY [facility] Last Admin: 10/25/17 10:29 Dose: 100 mg Sucralfate (Carafate Tab) 1 gm PO BID [facility] Last Admin: 10/25/17 10:26 Dose: 1 gm Tramadol HCl (Ultram) 50 mg PO Q6 PRN PRN Reason: Pain, moderate (4-7) Last Admin: 10/23/17 09:02 Dose: 50 mg - Labs Labs: 10/23/17 05:00 10/23/17 05:00 PT 10.2 Seconds (9.8-13.1) 10/19/17 13:52 INR 0.9 (0.9-1.2) 10/19/17 13:52 APTT 29.7 Seconds (25.6-37.1) 10/19/17 13:52
[2017-10-25] MEDS: Insulin Lispro (humaLOG) 100 Units/ml Inj SC SCH ×3 (13:42→22:00)
[2017-10-25 13:54] LABS: HEMOGLOBIN 11.1 g/dL (12.0-16.0); MEAN CELL VOLUME 93.3 fl (81.0-99.0); MEAN CORPUSCULAR HGB CONC 32.2 g/dL (33.0-37.0); RBC 3.68 Mil/uL (3.80-5.20); RED CELL DISTRIBUTION WIDTH 14.8 % (11.5-14.5); WHITE BLOOD COUNT 9.1 K/uL (4.8-10.8)
[2017-10-25 14:14] LABS: ALB/GLOB RATIO 1.1 (1.0-2.1); ALBUMIN 3.4 g/dL (3.5-5.0); CALCIUM 8.6 mg/dL (8.4-10.2)
--- NOTE | 2017-10-25 16:53 | CP.PCM.PN ---
<Dayna Uriarte - Last Filed: 10/25/17 16:53> Subjective - Date & Time of Evaluation Date of Evaluation: 10/25/17 Time of Evaluation: 09:00 - Subjective Subjective: No acute overnight events. Pt doing well this morning, breathing a little better per pt. Objective - Vital Signs/Intake and Output Vital Signs (last 24 hours): Temp Pulse Resp BP Pulse Ox 98.2 F 75 20 151/67 H 97 10/25/17 16:04 10/25/17 16:04 10/25/17 16:04 10/25/17 16:04 10/25/17 16:04 - Medications Medications: Current Medications Acetaminophen (Tylenol 325mg Tab) 650 mg PO Q6 PRN PRN Reason: Fever >100.4 F Albuterol/Ipratropium (Duoneb 3 Mg/0.5 Mg (3 Ml) Ud) 3 ml INH RQ6 PRN PRN Reason: Shortness of Breath Last Admin: 10/24/17 05:06 Dose: 3 ml Amlodipine Besylate (Norvasc) 10 mg PO DAILY [facility] Aspirin (Ecotrin) 81 mg PO DAILY [facility] Last Admin: 10/24/17 09:28 Dose: 81 mg Bisoprolol Fumarate (Zebeta) 10 mg PO DAILY [facility] Last Admin: 10/25/17 10:30 Dose: 10 mg Ferrous Gluconate (Fergon) 324 mg PO DAILY [facility] Last Admin: 10/25/17 10:28 Dose: 324 mg Glipizide (Glucotrol) 10 mg PO DAILY [facility] Last Admin: 10/25/17 10:28 Dose: 10 mg Guaifenesin/Dextromethorphan (Robitussin Dm) 10 ml PO TID [facility] Last Admin: 10/25/17 10:36 Dose: 10 ml Heparin Sodium (Porcine) (Heparin) 5,000 units SC Q8 [facility] PRN Reason: Protocol Last Admin: 10/25/17 10:30 Dose: 5,000 units Azithromycin 500 mg/ Sodium (Chloride) 250 mls @ 250 mls/hr IVPB DAILY [facility] PRN Reason: Protocol Last Admin: 10/25/17 10:34 Dose: 250 mls/hr Ceftriaxone Sodium 1 gm/ (Sodium Chloride) 100 mls @ 100 mls/hr IVPB DAILY [facility] PRN Reason: Protocol Last Admin: 10/25/17 10:35 Dose: 100 mls/hr Insulin Human Lispro (Humalog) 0 units SC ACHS [facility] PRN Reason: Protocol Last Admin: 10/24/17 21:59 Dose: Not Given Isosorbide Mononitrate (Imdur Er) 30 mg PO DAILY [facility] Last Admin: 10/25/17 10:29 Dose: 30 mg Losartan Potassium (Cozaar) 25 mg PO DAILY [facility] Last Admin: 10/25/17 10:28 Dose: 25 mg Pantoprazole Sodium (Protonix Ec Tab) 40 mg PO DAILY [facility] Last Admin: 10/25/17 10:29 Dose: 40 mg Pravastatin Sodium (Pravachol) 40 mg PO DAILY [facility] Last Admin: 10/25/17 10:29 Dose: 40 mg Prednisone (Prednisone Tab) 10 mg PO DAILY [facility] Last Admin: 10/25/17 10:29 Dose: 10 mg Sitagliptin Phosphate (Januvia) 25 mg PO DAILY [facility] Sucralfate (Carafate Tab) 1 gm PO BID [facility] Last Admin: 10/25/17 10:26 Dose: 1 gm Tramadol HCl (Ultram) 50 mg PO Q6 PRN PRN Reason: Pain, moderate (4-7) Last Admin: 10/23/17 09:02 Dose: 50 mg - Labs Labs: 10/25/17 13:45 10/25/17 13:45 PT 10.2 Seconds (9.8-13.1) 10/19/17 13:52 INR 0.9 (0.9-1.2) 10/19/17 13:52 APTT 29.7 Seconds (25.6-37.1) 10/19/17 13:52 - Constitutional Appears: No Acute Distress, Other (on NC O2) - Eye Exam Eye Exam: Normal appearance - ENT Exam ENT Exam: Mucous Membranes Moist - Respiratory Exam Respiratory Exam: Wheezes, NORMAL BREATHING PATTERN - Cardiovascular Exam Cardiovascular Exam: REGULAR RHYTHM, +S1, +S2 - GI/Abdominal Exam GI & Abdominal Exam: Soft, Normal Bowel Sounds. absent: Tenderness - Extremities Exam Extremities Exam: Normal Inspection, Pedal Edema. absent: Calf Tenderness - Neurological Exam Neurological Exam: Alert, Awake Assessment and Plan (1) Acute kidney injury Status: Acute (2) Acute hyperkalemia Status: Acute (3) COPD bronchitis Status: Acute (4) Diabetes mellitus type 2 in obese Status: Chronic (5) Pneumonia Status: Acute (6) CHF (congestive heart failure) Status: Chronic (7) Hypertension Status: Chronic - Assessment and Plan (Free Text) Assessment: 77 YO Female with PMHx of HTN, HLD, CAD, CHF, COPD, CKD, NIDDM, gastritis, is admitted for pneumonia with respiratory distress, and acute on chronic renal failure. -blood work reviewed -Nephrology on consult; renal function improving -VS reviewed; labile BP 180's systolic, given norvasc -CXR repeat today -Pt on board -plan as ordered Pt seen and examined with Dr. Austin <Manpreet Austin - Last Filed: 10/28/17 20:25> Objective - Vital Signs/Intake and Output Vital Signs (last 24 hours): Temp Pulse Resp BP Pulse Ox 98.8 F 76 18 135/76 96 10/26/17 16:16 10/26/17 16:16 10/26/17 16:16 10/26/17 16:16 10/26/17 16:16 - Labs Labs: 10/25/17 13:45 10/26/17 04:20 PT 10.2 Seconds (9.8-13.1) 10/19/17 13:52 INR 0.9 (0.9-1.2) 10/19/17 13:52 APTT 29.7 Seconds (25.6-37.1) 10/19/17 13:52 Assessment and Plan - Assessment and Plan (Free Text) Assessment: Patient was personally seen and examined by me in rounds with residents. Available labs and diagnostic data reviewed. Case, Patient's condition and management plan discussed with residents in rounds. Agree with resident's progress note. Plan: As ordered.
[2017-10-26] MEDS: Albuterol-Ipratrop 3 mg / 0.5 (3 ml) UD INH PRN (01:03)
[2017-10-26 05:29] LABS: CALCIUM 8.9 mg/dL (8.4-10.2)
--- NOTE | 2017-10-26 08:13 | CON ---
DATE: 10/25/2017 FOLLOWUP RENAL CONSULTATION LOCATION: The patient is located in room 402, bed 2. REQUESTED BY: Manpreet Austin MD REASON FOR FOLLOWUP: Acute renal failure, chronic kidney disease, exacerbation of asthma, hypertension. HISTORY OF PRESENT ILLNESS: Mrs. Najera is a 77-year-old elderly female with a past medical history significant for longstanding hypertension, diabetes, asthma, COPD, hyperlipidemia, chronic kidney disease stage 3, low back pain, CHF who was admitted with chief complaints of nonproductive cough and shortness of breath for about four days prior to the admission and also found to have acute renal failure. The patient is feeling slightly better, not in distress. Denies any chest pain, palpitation. Denies any nausea, vomiting, diarrhea. Denies any abdominal pain. Denies any dysuria, frequency. Denies any edema of the legs. PHYSICAL EXAMINATION: VITAL SIGNS: As follows: Blood pressure 151/67, pulse 75, respirations 20, temperature 98.2, and saturation 97%. Height 4 feet 10 inches, weight is 136 pounds. GENERAL: Mrs. Najera is a 77-year-old elderly female, moderately built, moderately nourished, not in acute distress. HEENT: Pupils normal and reactive to light and accommodation. Conjunctivae pink. Sclerae nonicteric. Tongue is moist. Trachea is midline. LUNGS: Symmetric on both sides. Bilateral expiratory wheeze present, slightly better. CVS: [place] at the fifth intercostal space midclavicular line. S1, S2 audible. No murmur, gallop. ABDOMEN: Normal in appearance. Soft, tympanic. No guarding. No rigidity. No hepatosplenomegaly. STAFFING BRANCH MANAGER: The patient is alert, awake, oriented x3. Nonfocal neuro examination. Cranial nerves II through XII grossly intact. Sensory and motor system is within normal limits. EXTREMITIES: No cyanosis, no clubbing, no edema. CURRENT MEDICATIONS: Include as follows: Azithromycin 500 mg daily, Rocephin 1 g daily, Carafate 1 g p.o. b.i.d., losartan 25 mg p.o. daily, DuoNeb inhaler every 6 hours, aspirin 81 mg daily, ferrous gluconate 324 mg p.o. daily, glipizide 10 mg daily, subcutaneous heparin 5000 every 8 hours, Imdur 30 mg p.o. daily, Januvia 25 mg p.o. daily, Norvasc 10 mg daily, Pravachol 40 mg p.o. daily, prednisone 10 mg daily, Protonix 40 mg p.o. daily, Robitussin 10 mL p.o. t.i.d, Tylenol and tramadol, and bisoprolol 10 mg daily. LABORATORY DATA: Include as follows: As of 10/25/2017, WBC 9.1, hemoglobin 11.1, hematocrit is 34.4, platelets 239. Sodium 145, potassium is 4.2, chloride 115, CO2 of 19, BUN 28, creatinine 1.8, glucose 160, calcium 8.6, total bili 0.4, AST 16, ALT 23, alkaline phosphatase is 81, total protein 6.6, albumin is 3.4. Blood culture x2 negative day 5, and urine culture negative as of 10/21/2017. ASSESSMENT AND PLAN: In summary, Mrs. Najera is a 77-year-old elderly female with hypertension, diabetes, chronic obstructive pulmonary disease, asthma, congestive heart failure, hyperlipidemia, chronic kidney disease III with increased BUN and creatinine and cough, shortness of breath, nonproductive cough with wheezing. 1. Acute renal failure, on chronic kidney disease, mostly secondary to acute tubular necrosis. Cannot rule out secondary to acute interstitial nephritis, less likely. The patient's baseline creatinine is about 1.5 to 2. Now, creatinine is almost back to her baseline. 2. Hypertension. Blood pressure is stable, and continue her antihypertensive medications; losartan 25 mg daily and also amlodipine 10 mg and bisoprolol 10 mg daily and Imdur. 3. Type 2 diabetes. Her sugars are under control. Continue Januvia and Humalog insulin for sliding scale. Continue gastrointestinal prophylaxis. Continue deep venous thrombosis prophylaxis. 4. Acute exacerbation of asthma, most likely secondary to acute bronchitis, rule out pneumonia. Continue antibiotics, IV Zithromax, and also Rocephin as per Dr. Manpreet Austin. We will follow with you. Thank you for allowing me to participate in your patient's care. Sonido Miguel MD [facility] # [id number]
[2017-10-26] MEDS: Insulin Lispro (humaLOG) 100 Units/ml Inj SC SCH ×3 (08:40→16:10)
[2017-10-26] MEDS: Pantoprazole 40 mg EC Tab PO SCH (08:41)
[2017-10-26] MEDS: Pravastatin Sodium 40 MG TAB PO SCH (08:41)
[2017-10-26] MEDS: guaiFENesin DM 200 mg-20 mg/10 ml UD PO SCH ×3 (08:42→16:09)
[2017-10-26] MEDS: Azithromycin 500 MG in Sodium Chloride 0.9% 250 ML IVPB SCH (08:57)
--- NOTE | 2017-10-26 10:23 | CP.PCM.DIS ---
Provider - Provider Date of Admission: 10/19/17 15:07 Attending physician: Manpreet Austin MD Time Spent in preparation of Discharge (in minutes): 20 Diagnosis - Discharge Diagnosis (1) Acute kidney injury Status: Chronic (2) Acute hyperkalemia Status: Resolved (3) COPD bronchitis Status: Acute (4) Diabetes mellitus type 2 in obese Status: Chronic (5) Pneumonia Status: Acute Priority: High (6) CHF (congestive heart failure) Status: Chronic (7) Hypertension Status: Chronic Priority: Medium Hospital Course - Lab Results Lab Results: Micro Results 10/21/17 13:00 Urine Urine Culture - Final No Growth (<1,000 CFU/ML) 10/19/17 15:23 Blood Blood Culture - Final NO GROWTH AFTER 5 DAYS 10/19/17 15:23 Blood Gram Stain - Final TEST NOT PERFORMED 10/19/17 15:14 Blood Blood Culture - Final NO GROWTH AFTER 5 DAYS 10/19/17 15:14 Blood Gram Stain - Final TEST NOT PERFORMED Most Recent Lab Values WBC 9.1 K/uL (4.8-10.8) D 10/25/17 13:45 RBC 3.68 Mil/uL (3.80-5.20) L 10/25/17 13:45 Hgb 11.1 g/dL (12.0-16.0) L 10/25/17 13:45 Hct 34.4 % (34.0-47.0) 10/25/17 13:45 MCV 93.3 fl (81.0-99.0) 10/25/17 13:45 MCH 30.0 pg (27.0-31.0) 10/25/17 13:45 MCHC 32.2 g/dL (33.0-37.0) L 10/25/17 13:45 RDW 14.8 % (11.5-14.5) H 10/25/17 13:45 Plt Count 239 K/uL (130-400) 10/25/17 13:45 MPV 8.5 fl (7.2-11.7) 10/20/17 04:25 Neut % (Auto) 89.6 % (50.0-75.0) H 10/20/17 04:25 Lymph % (Auto) 7.3 % (20.0-40.0) L 10/20/17 04:25 [place] % (Auto) 2.7 % (0.0-10.0) 10/20/17 04:25 Eos % (Auto) 0.0 % (0.0-4.0) 10/20/17 04:25 Baso % (Auto) 0.4 % (0.0-2.0) 10/20/17 04:25 Neut # (Auto) 4.5 K/uL (1.8-7.0) 10/20/17 04:25 Lymph # (Auto) 0.4 K/uL (1.0-4.3) L 10/20/17 04:25 [place] # (Auto) 0.1 K/uL (0.0-0.8) 10/20/17 04:25 Eos # (Auto) 0.0 K/uL (0.0-0.7) 10/20/17 04:25 Baso # (Auto) 0.0 K/uL (0.0-0.2) 10/20/17 04:25 Neutrophils % (Manual) 90 % (42-75) H 10/20/17 04:25 Band Neutrophils % 2 % (0-2) 10/20/17 04:25 Lymphocytes % (Manual) 6 % (20-50) L 10/20/17 04:25 Monocytes % (Manual) 2 % (0-10) 10/20/17 04:25 Platelet Estimate Normal (NORMAL) 10/20/17 04:25 PT 10.2 Seconds (9.8-13.1) 10/19/17 13:52 INR 0.9 (0.9-1.2) 10/19/17 13:52 APTT 29.7 Seconds (25.6-37.1) 10/19/17 13:52 Sodium 145 mmol/l (132-148) 10/26/17 04:20 Potassium 4.2 MMOL/L (3.6-5.0) 10/26/17 04:20 Chloride 115 mmol/L (98-107) H 10/26/17 04:20 Carbon Dioxide 17 mmol/L (22-30) L 10/26/17 04:20 Anion Gap 17 (10-20) 10/26/17 04:20 BUN 32 mg/dl (7-17) H 10/26/17 04:20 Creatinine 2.0 mg/dl (0.7-1.2) H 10/26/17 04:20 Est GFR ( Amer) 29 10/26/17 04:20 Est GFR (Non-Af Amer) 24 10/26/17 04:20 POC Glucose (mg/dL) 96 mg/dL (65-110) 10/26/17 05:52 Random Glucose 110 mg/dL (65-105) H 10/26/17 04:20 Hemoglobin A1c 8.7 % (4.2-6.5) H 10/20/17 04:25 Calcium 8.9 mg/dL (8.4-10.2) 10/26/17 04:20 Total Bilirubin 0.4 mg/dl (0.2-1.3) 10/25/17 13:45 AST 16 U/L (14-36) 10/25/17 13:45 ALT 23 U/L (9-52) 10/25/17 13:45 Alkaline Phosphatase 81 U/L (38-126) 10/25/17 13:45 Troponin I 0.0760 ng/mL (0.00-0.120) 10/19/17 13:52 NT-Pro-B Natriuret Pep 5460 pg/ml (0-900) H 10/19/17 13:52 Total Protein 6.6 G/DL (6.3-8.2) 10/25/17 13:45 Albumin 3.4 g/dL (3.5-5.0) L 10/25/17 13:45 Globulin 3.1 gm/dL (2.2-3.9) 10/25/17 13:45 Albumin/Globulin Ratio 1.1 (1.0-2.1) 10/25/17 13:45 Urine Color Straw (YELLOW) 10/21/17 13:00 Urine Clarity Clear (Clear) 10/21/17 13:00 Urine pH 6.0 (5.0-8.0) 10/21/17 13:00 Ur Specific [place] 1.008 (1.003-1.030) 10/21/17 13:00 Urine Protein >=500 mg/dL (NEGATIVE) 10/21/17 13:00 Urine Glucose (UA) 50 mg/dL (Normal) 10/21/17 13:00 Urine Ketones Negative mg/dL (NEGATIVE) 10/21/17 13:00 Urine Blood Negative (NEGATIVE) 10/21/17 13:00 Urine Nitrate Negative (NEGATIVE) 10/21/17 13:00 Urine Bilirubin Negative (NEGATIVE) 10/21/17 13:00 Urine Urobilinogen 0.2-1.0 mg/dL (0.2-1.0) 10/21/17 13:00 Ur Leukocyte Esterase Neg [place]/uL (Negative) 10/21/17 13:00 Urine RBC (Auto) < 1 /hpf (0-3) 10/21/17 13:00 Urine Microscopic WBC 3 /hpf (0-5) 10/21/17 13:00 Ur Squamous Epith Cells 1 /hpf (0-5) 10/21/17 13:00 Urine Bacteria Few (<OCC) H 10/21/17 13:00 Urine Osmolality 245 mosm/kg (300-1000) L 10/21/17 13:00 Ur Random Creatinine 37.7 mg/dL 10/21/17 13:00 Ur Random Sodium 35 mmol/L 10/21/17 13:00 - Hospital Course Hospital Course: 77 YO Female with PMHx of HTN, HLD, CAD, CHF, COPD, CKD, NIDDM, gastritis, is admitted for pneumonia with respiratory distress, and acute on chronic renal failure. Nephrology was consulted and renal status improved, pt had been on IV abx for pneumonia, bcx no growth. Pt remains clinically stable. Pt cleared by consultants to be d/c home. Pt is ambulating, good PO intake and hemodynamically stable. Will d/c patient home with follow up with PMD in 1 week. Discharge Exam - Head Exam Head Exam: NORMAL INSPECTION - Eye Exam Eye Exam: EOMI, Normal appearance - ENT Exam ENT Exam: Mucous Membranes Moist - Respiratory Exam Respiratory Exam: Wheezes, NORMAL BREATHING PATTERN. absent: Rales, Rhonchi, Respiratory Distress - Cardiovascular Exam Cardiovascular Exam: REGULAR RHYTHM, +S1, +S2, Systolic Murmur - GI/Abdominal Exam GI & Abdominal Exam: Normal Bowel Sounds, Soft. absent: Tenderness - Extremities Exam Extremities exam: normal inspection - Neurological Exam Neurological exam: Alert, Normal Gait, Oriented x3 Discharge Plan - Discharge Medications Prescriptions: amLODIPine [Norvasc] 10 mg PO DAILY #30 tab Bisoprolol [Zebeta] 10 mg PO DAILY #30 tab Losartan [Cozaar] 50 mg PO DAILY #30 tab - Follow Up Plan Condition: FAIR Disposition: HOME/ ROUTINE Instructions: Pneumonia, Adult (DC), Exacerbation of COPD (DC) Additional Instructions: follow up appt with on 11/02/15 at 11:00am Referrals: Manpreet Austin MD [Family Provider] -
[2017-10-26 15:53] VITALS: BP 135/76; PULSE 76; RESP 18; TEMP 98.8; O2SAT 96
== END 2017-10-26 18:56 | disposition home or self-care (01) | DRG 682 ==
LOC: H.ER 12:44 → UNDOADMIN 14:49 → H.ERHOLD 14:49 → H.TEL 19:17
PROVIDERS: ADMIT Internal Medicine; ATTEND Internal Medicine
DX: N17.0 Acute kidney failure with tubular necrosis (principal); I50.23 Acute on chronic systolic (congestive) heart failure; J18.9 Pneumonia, unspecified organism; I13.0 Hypertensive heart and chronic kidney disease with heart failure and stage 1 through stage 4 chronic kidney disease, or unspecified chronic kidney disease; J45.901 Unspecified asthma with (acute) exacerbation; J44.0 Chronic obstructive pulmonary disease with (acute) lower respiratory infection; N39.0 Urinary tract infection, site not specified; E78.5 Hyperlipidemia, unspecified; I25.10 Atherosclerotic heart disease of native coronary artery without angina pectoris; K29.70 Gastritis, unspecified, without bleeding; Z87.891 Personal history of nicotine dependence; E87.5 Hyperkalemia; N18.3 Chronic kidney disease, stage 3 (moderate); E11.22 Type 2 diabetes mellitus with diabetic chronic kidney disease; J20.9 Acute bronchitis, unspecified; E66.9 Obesity, unspecified; F41.9 Anxiety disorder, unspecified; I48.91 Unspecified atrial fibrillation; F32.9 Major depressive disorder, single episode, unspecified; E78.00 Pure hypercholesterolemia, unspecified; M81.0 Age-related osteoporosis without current pathological fracture; Z95.5 Presence of coronary angioplasty implant and graft; R09.02 Hypoxemia

== ENCOUNTER 2018-01-10 09:26 | Inpatient (IN) | payer MEDICARE, MEDICAID ==
[2018-01-10 09:32] VITALS: BMI 28.0
--- NOTE | 2018-01-10 11:13 | ED PDOC ---
HPI: Back Time Seen by Provider: 01/10/18 10:28 Chief Complaint (Nursing): Back Pain Chief Complaint (Provider): "everything hurts" History Per: Patient Additional Complaint(s): HPI: 77 YO Female with PMHx of HTN, HLD, CAD, CHF, COPD, CKD, NIDDM, gastritis, presents to [facility] ED for complaints of severe back pain, leg pain, body pain, rib pain and cough. Pt denies palpitations ore SOB. Pt reports chest pain worse with cough. Tactile fever reported at home as well. no diaphoresis or nausea or vomiting. PMHx: HTN, HLD, CAD, CHF, COPD, CKD, NIDDM, gastritis SurgHx: cholesectomy, x 2 Social Hx: denies ETOH, and illicit drug use; hx of smoking in the past Allergies: xanex and hydromorphone- rash and swelling Past Medical History Reviewed: Historical Data, Nursing Documentation, Vital Signs Vital Signs: Last Vital Signs Temp 98.3 F 01/10/18 09:32 Pulse 85 01/10/18 09:32 Resp 17 01/10/18 09:32 BP 123/73 01/10/18 09:32 Pulse Ox 96 01/10/18 09:32 - Medical History PMH: Anemia, Anxiety, Arthritis, Atrial Fibrillation, Back Problems (had recent injury/fall and was hospitalized for back pain(no findings)), Bronchitis, CAD, Cardia Arrhythmia, CHF, COPD, Depression, Diabetes (type II), Gastritis, Gall Bladder Disease, Hepatitis (B), HTN, Hypercholesterolemia, Hyperlipidemia, Osteoporosis, Peripheral Edema, Pneumonia, Chronic Kidney Disease Denies: Asthma, HIV, End Stage Renal Disease - Surgical History Surgical History: Cholecystectomy, Coronary Stent, (x 2) - Family History Family History: States: Hypertension - Immunization History Hx Tetanus Toxoid Vaccination: No Hx Influenza Vaccination: Yes Hx Pneumococcal Vaccination: Yes - Home Medications Home Medications: Ambulatory Orders Medication Instructions Recorded Pravastatin Sodium [Pravachol] 40 mg PO HS 07/17/16 Aspirin [Lo-Dose Aspirin EC] 81 mg PO DAILY 05/05/17 GlipiZIDE [Glucotrol] 10 mg PO DAILY #20 tab 06/05/17 Isosorbide Mononitrate ER [Imdur 30 mg PO DAILY #20 tab 06/05/17 ER] Pantoprazole Sodium [Protonix] 40 mg PO DAILY #20 tablet. 06/05/17 SITagliptin [Januvia] 100 mg PO DAILY #20 tab 06/05/17 Ferrous Gluconate [Fergon] 324 mg PO DAILY 10/19/17 Sucralfate [Carafate] 1 gm PO BID 10/19/17 Losartan [Cozaar] 50 mg PO DAILY #30 tab 10/26/17 amLODIPine [Norvasc] 10 mg PO DAILY #30 tab 10/26/17 Acetaminophen [Tylenol 325mg tab] 650 mg PO Q6 PRN 01/10/18 Bisoprolol [Zebeta] 5 mg PO DAILY 01/10/18 Cholecalciferol [Vitamin D 1000 IU] 1,000 unit PO DAILY 01/10/18 Empagliflozin [Jardiance] 10 mg PO DAILY 01/10/18 Furosemide [Lasix] 40 mg PO DAILY 01/10/18 - Allergies Allergies/Adverse Reactions: Allergies Allergy/AdvReac Type Severity Reaction Status Date / Time alprazolam [From Xanax] Allergy SWELLING Verified 01/10/18 09:49 hydromorphone HCl Allergy RASH Verified 01/10/18 09:49 [From Dilaudid] zolpidem tartrate Allergy RASH Verified 01/10/18 09:49 [From Ambien] Review of Systems ROS Statement: Except As Marked, All Systems Reviewed And Found Negative Respiratory: Positive for: Cough Musculoskeletal: Positive for: Back Pain, Leg Pain Physical Exam - Reviewed Nursing Documentation Reviewed: Yes Vital Signs Reviewed: Yes - Physical Exam Appears: Positive for: Well, Non-toxic, No Acute Distress Head Exam: Positive for: ATRAUMATIC, NORMAL INSPECTION, NORMOCEPHALIC Skin: Positive for: Normal Color, Warm, DRY Eye Exam: Positive for: EOMI, Normal appearance, PERRL ENT: Positive for: Normal ENT Inspection Neck: Positive for: Normal, Painless ROM Cardiovascular/Chest: Positive for: Regular Rate, Rhythm Respiratory: Positive for: CNT, Normal Breath Sounds Gastrointestinal/Abdominal: Positive for: Normal Exam, Soft Back: Positive for: Normal Inspection Extremity: Positive for: Normal ROM Neurologic/Psych: Positive for: Alert, Oriented - Laboratory Results Result Diagrams: 01/10/18 11:15 01/10/18 11:15 - ECG O2 Sat by Pulse Oximetry: 96 Medical Decision Making Medical Decision Making: IV access established and diagnostics ordered Labs resulted and reviewed. IV Zithro and Rocephin started for RLL infiltrate noted on CXR WBC 14.8 Lactate 1.2 Troponon 0.134 Vitals stable Case d/w PMD. Dr. Austin, arrangements made for admission to tele Consult placed to Dr. Stout by auto service writer Disposition - Clinical Impression Clinical Impression: Pneumonia, CKD (chronic kidney disease) stage 2, GFR 60-89 ml/min, Elevated troponin - Patient ED Disposition Is Patient to be Admitted: Yes - Disposition Disposition Time: 15:28 Condition: STABLE - Pt Status Changed To: Hospital Disposition Of: Inpatient - Admit Certification Admit to Inpatient:: After my assessment, the patient will require hospitalizati on for at least two midnights. This is because of the severity of symptoms shown, intensity of services needed, and/or the medical risk in this patient being treated as an outpatient.
[2018-01-10 11:37] LABS: BASO # 0.1 K/uL (0.0-0.2); BASO % 0.4 % (0.0-2.0); EOS # 0.2 K/uL (0.0-0.7); EOS % 1.2 % (0.0-4.0); HEMOGLOBIN 12.1 g/dL (12.0-16.0); LYMPH # 0.7 K/uL (1.0-4.3); LYMPH % 4.8 % (20.0-40.0); MEAN CELL VOLUME 92.8 fl (81.0-99.0); MEAN CORPUSCULAR HGB CONC 32.3 g/dL (33.0-37.0); MEAN PLATELET VOLUME 8.6 fl (7.2-11.7); MONO % 6.8 % (0.0-10.0); NEUT # 12.9 K/uL (1.8-7.0); NEUT % 86.8 % (50.0-75.0); PLATELET COUNT 237 K/uL (130-400); RBC 4.02 Mil/uL (3.80-5.20); WHITE BLOOD COUNT 14.8 K/uL (4.8-10.8)
[2018-01-10 11:52] LABS: ALBUMIN 4.1 g/dL (3.5-5.0)
--- NOTE | 2018-01-10 12:01 | RAD ---
Date of service: 01/10/2018 HISTORY: cough COMPARISON: 10/25/2017 FINDINGS: LUNGS: Patchy opacity at right base unchanged from prior. No new opacity elsewhere. Technically limited examination. PLEURA: No significant pleural effusion identified, no pneumothorax apparent. CARDIOVASCULAR: Normal. OSSEOUS STRUCTURES: No significant abnormalities. VISUALIZED UPPER ABDOMEN: Normal. OTHER FINDINGS: None. IMPRESSION: Persistent patchy opacity at right base.
[2018-01-10 12:07] LABS: SQUAMOUS EPITHIAL < 1 /hpf (0-5); URINE AMORPHOUS SEDIMENT RARE /ul (<OCC); URINE BILIRUBIN NEGATIVE (NEGATIVE); URINE BLOOD SMALL (NEGATIVE); URINE CLARITY SLIGHTY-CLOUDY (Clear); URINE COLOR YELLOW (YELLOW); URINE GLUCOSE (UA) 50 mg/dL (Normal); URINE HYALINE CAST >20 /hpf (0-2); URINE LEUKOCYTE ESTERASE NEG Leu/uL (Negative); URINE PROTEIN 100 mg/dL (NEGATIVE); URINE UROBILINOGEN 0.2-1.0 mg/dL (0.2-1.0)
[2018-01-10 12:17] LABS: TROPONIN I 0.134 ng/mL (0.00-0.120)
[2018-01-10] MEDS ORDERED: Azithromycin 500 MG in Sodium Chloride 0.9% 250 ML IVPB STA (12:28)
[2018-01-10] MEDS ORDERED: Azithromycin 500 MG IV IVPB ONE (12:54)
[2018-01-10] MEDS ORDERED: cefTRIAXone (Rocephin) 1 gm Inj ONE (12:55)
[2018-01-10 13:15] LABS: VENOUS BLOOD GAS BASE EXCESS -6.6 mmol/L (0.0-2.0); VENOUS BLOOD GAS PCO2 44 mmHg (40-60); VENOUS BLOOD GAS PO2 19 mm/Hg (30-55); VENOUS BLOOD PH 7.27 (7.32-7.43)
[2018-01-10 13:15] LABS: BANDS 4 % (0-2); EOSINOPHIL 1 % (0-7); LYMPHOCYTE 3 % (20-50); MONOCYTE 7 % (0-10); NEUTROPHIL 85 % (42-75); PLATELET ESTIMATE NORMAL (NORMAL); TOTAL CELLS COUNTED 100
[2018-01-10 13:16] LABS: ANISOCYTOSIS SLIGHT
--- NOTE | 2018-01-10 14:56 | CP.PCM.HP ---
<Sultan Kaykay - Last Filed: 01/10/18 15:22> History of Present Illness - History of Present Illness History of Present Illness: 77 year old Female with PMHx of HTN, HLD, CAD, CHF, COPD, CKD, NIDDM, gastritis, presents to [facility] ED for some productive cough x 1 weeks associated right sided flank pain and abdominal pain when coughing for one day. Patient reports subjective fever, NBNB vomiting last night and 3 episodes of loose BM this morning. Patient also reports dysuria, urinary frequency and suprapubic discomfort for 2 days. Reports she has chronic lower back pain. Denies chest pain, dyspnea, headache, dizziness or focal weakness. Patient is admitted for pneumonia and elevated troponin. ROS: all 12 systems reviewed and negative except as mentioned in HPI PMHx: HTN, HLD, CAD, CHF, COPD, CKD, NIDDM, gastritis SurgHx: cholesectomy,tonsillectomy, hysterectomy, x 2 Social Hx: denies ETOH, and illicit drug use; hx of smoking in the past Allergies: xanex and hydromorphone- rash and swelling Hx obtained from patient and chart review ED COURSE: EKG: no ST/T wave changes, CXR: persistent patchy opacity at the right base, wbc 14.8 with left shift, elevated troponin 0.1340, cardiology consult. Received ceftriaxone, azithromycin and toradol. Present on Admission - Present on Admission Any Indicators Present on Admission: No Review of Systems - Review of Systems All systems: reviewed and no additional remarkable complaints except Past Patient History - Past Medical History & Family History Past Medical History?: Yes - Past Social History Smoking Status: Never Smoked - CARDIAC Hx Atrial Fibrillation: Yes Hx Cardia Arrhythmia: Yes Hx Congestive Heart Failure: Yes Hx Hypercholesterolemia: Yes Hx Hypertension: Yes Hx Peripheral Edema: Yes - PULMONARY Hx Asthma: No Hx Bronchitis: Yes Hx Chronic Obstructive Pulmonary Disease (COPD): Yes Hx Pneumonia: Yes - NEUROLOGICAL Hx Neurological Disorder: No - HEENT Hx HEENT Problems: No - RENAL Hx Chronic Kidney Disease: Yes - ENDOCRINE/METABOLIC Hx Endocrine Disorders: Yes Hx Diabetes Mellitus Type 2: Yes - HEMATOLOGICAL/ONCOLOGICAL Hx Anemia: Yes Hx Human Immunodeficiency Virus (HIV): No - INTEGUMENTARY Hx Dermatological Problems: No - MUSCULOSKELETAL/RHEUMATOLOGICAL Hx Arthritis: Yes Hx Osteoporosis: Yes - GASTROINTESTINAL Hx Gall Bladder Disease: Yes Hx Gastritis: Yes - GENITOURINARY/GYNECOLOGICAL Hx Genitourinary Disorders: No - PSYCHIATRIC Hx Anxiety: Yes Hx Depression: Yes - SURGICAL HISTORY Hx Cholecystectomy: Yes Hx Coronary Stent: Yes - ANESTHESIA Hx Anesthesia: Yes Hx Anesthesia Reactions: No Hx Malignant Hyperthermia: No Meds Allergies/Adverse Reactions: Allergies Allergy/AdvReac Type Severity Reaction Status Date / Time alprazolam [From Xanax] Allergy SWELLING Verified 01/10/18 09:49 hydromorphone HCl Allergy RASH Verified 01/10/18 09:49 [From Dilaudid] zolpidem tartrate Allergy RASH Verified 01/10/18 09:49 [From Ambien] Physical Exam - Constitutional Appears: Non-toxic, No Acute Distress - Head Exam Head Exam: ATRAUMATIC, NORMAL INSPECTION, NORMOCEPHALIC - Eye Exam Eye Exam: EOMI, Normal appearance, PERRL - ENT Exam ENT Exam: Mucous Membranes Moist - Neck Exam Neck exam: Positive for: Normal Inspection. Negative for: Meningismus - Respiratory Exam Respiratory Exam: Rales (right lung field with expiratory wheezing.), NORMAL BREATHING PATTERN. absent: Accessory Muscle Use, Respiratory Distress - Cardiovascular Exam Cardiovascular Exam: REGULAR RHYTHM, +S1, +S2 - Extremities Exam Extremities exam: Positive for: normal inspection, pedal pulses present. Negative for: calf tenderness, pedal edema - Back Exam Back exam: absent: CVA tenderness (L), CVA tenderness (R) - Neurological Exam Neurological exam: Alert, CN II-XII Intact, Oriented x3 - Psychiatric Exam Psychiatric exam: Normal Affect, Normal Mood - Skin Skin Exam: Normal Color, Warm Results - Vital Signs Recent Vital Signs: Last Vital Signs Temp 97 F L 01/10/18 13:25 Pulse 84 01/10/18 13:25 Resp 20 01/10/18 13:25 BP 100/60 01/10/18 13:25 Pulse Ox 96 01/10/18 14:09 - Labs Result Diagrams: 01/10/18 11:15 01/10/18 11:15 Labs: Laboratory Results - last 24 hr 01/10/18 01/10/18 01/10/18 11:15 11:15 11:50 WBC 14.8 H D RBC 4.02 Hgb 12.1 Hct 37.3 MCV 92.8 MCH 30.0 MCHC 32.3 L RDW 15.0 H Plt Count 237 MPV 8.6 Neut % (Auto) 86.8 H Lymph % (Auto) 4.8 L [place] % (Auto) 6.8 Eos % (Auto) 1.2 Baso % (Auto) 0.4 Neut # (Auto) 12.9 H Lymph # (Auto) 0.7 L [place] # (Auto) 1.0 H Eos # (Auto) 0.2 Baso # (Auto) 0.1 Neutrophils % (Manual) 85 H Band Neutrophils % 4 H Lymphocytes % (Manual) 3 L Monocytes % (Manual) 7 Eosinophils % (Manual) 1 Platelet Estimate Normal Anisocytosis (manual) Slight pO2 VBG pH VBG pCO2 VBG HCO3 VBG Total CO2 VBG O2 Sat (Calc) VBG Base Excess VBG Potassium Glucose Lactate FiO2 Sodium 141 Potassium 3.5 L Chloride 110 H Carbon Dioxide 17 L Anion Gap 18 BUN 71 H Creatinine 3.4 H Est GFR ( Amer) 16 Est GFR (Non-Af Amer) 13 Random Glucose 101 Calcium 9.0 Total Bilirubin 0.4 AST 21 ALT 19 Alkaline Phosphatase 95 Troponin I 0.1340 H* Total Protein 8.0 Albumin 4.1 Globulin 4.0 H Albumin/Globulin Ratio 1.0 Venous Blood Potassium Urine Color Yellow Urine Clarity Slighty-cloudy Urine pH 6.0 Ur Specific [place] 1.010 Urine Protein 100 Urine Glucose (UA) 50 Urine Ketones Negative Urine Blood Small Urine Nitrate Negative Urine Bilirubin Negative Urine Urobilinogen 0.2-1.0 Ur Leukocyte Esterase Neg Urine Microscopic WBC 1 Ur Squamous Epith Cells < 1 Amorphous Sediment Rare H Hyaline Casts >20 H 01/10/18 13:00 WBC RBC Hgb Hct MCV MCH MCHC RDW Plt Count MPV Neut % (Auto) Lymph % (Auto) [place] % (Auto) Eos % (Auto) Baso % (Auto) Neut # (Auto) Lymph # (Auto) [place] # (Auto) Eos # (Auto) Baso # (Auto) Neutrophils % (Manual) Band Neutrophils % Lymphocytes % (Manual) Monocytes % (Manual) Eosinophils % (Manual) Platelet Estimate Anisocytosis (manual) pO2 19 L VBG pH 7.27 L VBG pCO2 44 VBG HCO3 17.7 VBG Total CO2 21.6 L VBG O2 Sat (Calc) 30.1 L VBG Base Excess -6.6 L VBG Potassium 3.3 L Glucose 86 Lactate 1.2 FiO2 21.0 Sodium 138.0 Potassium Chloride 109.0 H Carbon Dioxide Anion Gap BUN Creatinine Est GFR ( Amer) Est GFR (Non-Af Amer) Random Glucose Calcium Total Bilirubin AST ALT Alkaline Phosphatase Troponin I Total Protein Albumin Globulin Albumin/Globulin Ratio Venous Blood Potassium 3.3 L Urine Color Urine Clarity Urine pH Ur Specific [place] Urine Protein Urine Glucose (UA) Urine Ketones Urine Blood Urine Nitrate Urine Bilirubin Urine Urobilinogen Ur Leukocyte Esterase Urine Microscopic WBC Ur Squamous Epith Cells Amorphous Sediment Hyaline Casts Assessment & Plan - Assessment and Plan (Free Text) Assessment: 77 year old Female with PMHx of HTN, HLD, CAD, CHF, COPD, CKD, NIDDM, lyubov ritis, presents to [facility] ED for some productive cough x 1 weeks associated right sided flank pain and abdominal pain when coughing for one day. Patient reports subjective fever, NBNB vomiting last night and 3 episodes of loose BM this morning. Patient is admitted for pneumonia and elevated troponin. Plan: Admit to Telemetry Cardiology consult for elevated troponin. Nephrology consult for CAMPBELL on CKD c/w ceftriaxone and azithromycin Duoneb q6hr Methylprednisolone 40 mg q12 Resume home medications IV fluids rest of the plan as ordered Plan discussed with Dr. Norman Mccracken, pgy-2 <Manpreet Austin - Last Filed: 01/12/18 11:47> Results - Vital Signs Recent Vital Signs: Last Vital Signs Temp 98.9 F 01/12/18 04:29 Pulse 85 01/12/18 04:29 Resp 19 01/12/18 04:29 BP 128/64 01/12/18 04:29 Pulse Ox 92 L 01/12/18 04:29 - Labs Result Diagrams: 01/12/18 06:30 01/12/18 06:30 Labs: Laboratory Results - last 24 hr 01/11/18 01/11/18 01/11/18 04:20 16:05 18:55 WBC RBC Hgb Hct MCV MCH MCHC RDW Plt Count Sodium Potassium Chloride Carbon Dioxide Anion Gap BUN Creatinine Est GFR ( Amer) Est GFR (Non-Af Amer) POC Glucose (mg/dL) 98 Random Glucose Hemoglobin A1c 8.3 H Calcium NT-Pro-B Natriuret Pep Urine Osmolality Ur Random Creatinine 18.9 Ur Random Sodium Ur Random Potassium 01/11/18 01/11/1801/12/18 18:55 21:12 05:10 WBC RBC Hgb Hct MCV MCH MCHC RDW Plt Count Sodium Potassium Chloride Carbon Dioxide Anion Gap BUN Creatinine Est GFR ( Amer) Est GFR (Non-Af Amer) POC Glucose (mg/dL) 142 H 65 Random Glucose Hemoglobin A1c Calcium NT-Pro-B Natriuret Pep Urine Osmolality 301 Ur Random Creatinine Ur Random Sodium 89 Ur Random Potassium 12.3 01/12/18 01/12/18 01/12/18 06:15 06:15 06:30 WBC 8.0 RBC 3.61 L Hgb 10.8 L Hct 32.8 L MCV 91.0 D MCH 29.9 MCHC 32.9 L RDW 15.0 H Plt Count 244 Sodium Potassium Chloride Carbon Dioxide Anion Gap BUN Creatinine Est GFR ( Amer) Est GFR (Non-Af Amer) POC Glucose (mg/dL) Random Glucose Hemoglobin A1c Calcium NT-Pro-B Natriuret Pep Urine Osmolality 314 Ur Random Creatinine 26.7 Ur Random Sodium 77 Ur Random Potassium 13.1 01/12/18 01/12/18 01/12/18 06:30 06:50 11:33 WBC RBC Hgb Hct MCV MCH MCHC RDW Plt Count Sodium 142 Potassium 3.2 L Chloride 113 H Carbon Dioxide 20 L Anion Gap 12 BUN 54 H Creatinine 2.6 H Est GFR ( Amer) 22 Est GFR (Non-Af Amer) 18 POC Glucose (mg/dL) 147 H 219 H Random Glucose 161 H Hemoglobin A1c Calcium 7.8 L NT-Pro-B Natriuret Pep 3650 H Urine Osmolality Ur Random Creatinine Ur Random Sodium Ur Random Potassium Assessment & Plan - Assessment and Plan (Free Text) Assessment: Patient was personally seen and examined by me in rounds with residents. Available labs and diagnostic data reviewed. Case, Patient's condition and management plan discussed with residents in rounds. Agree with resident's progress note. Plan: As ordered.
[2018-01-10] MEDS ORDERED: Pantoprazole 40 mg EC Tab PO ONE (16:06)
[2018-01-10] MEDS: Pantoprazole 40 mg EC Tab PO SCH (16:07)
[2018-01-10] MEDS: Sodium Chloride 0.9% 1,000 ML IV SCH (16:08)
[2018-01-10 17:36] LABS: PROTHROMBIN TIME 10.8 Seconds (9.8-13.1)
[2018-01-10 17:39] LABS: PARTIAL THROMBOPLASTIN TIME 29.2 Seconds (25.6-37.1)
[2018-01-10 17:50] LABS: TROPONIN I 0.125 ng/mL (0.00-0.120)
--- NOTE | 2018-01-10 18:20 | CP.PCM.CON ---
History of Present Illness - History of Present Illness History of Present Illness: I was asked to see patient by Dr Austin. Patient is a 77 year old female with a history of HTN, DM who presents with cough. Patient has felt dyspneic and noted productive cough. The patient has pneumonia. She denies current chest pain. The troponin was eelevated. Review of Systems - Constitutional Constitutional: absent: As Per HPI, Anorexia, Chills, Daytime Sleepiness, Excessive Sweating, Fatigue, Fever, Frequent Falls, Headache, Increased Appetite, Lethargy, Malaise, Night Sweats, Snoring, Sleep Apnea, Weight Gain, Weight Loss, Weakness, Other - EENT Eyes: absent: As Per HPI, Blind Spots, Blurred Vision, Change in Vision, Decreased Night Vision, Diplopia, Discharge, Dry Eye, Exophthalmos, Floaters, Irritation, Itchy Eyes, Loss of Peripheral Vision, Pain, Photophobia, Requires Corrective Lenses, Sees Flashes, Spots in Vision, Tunnel Vision, Other Visual Disturbances, Loss of Vision, Other Ears: absent: As Per HPI, Decreased Hearing, Ear Discharge, Ear Pain, Tinnitus, Abnormal Hearing, Disequilibrium, Dizziness, Other Nose/Mouth/Throat: absent: As Per HPI, Epistaxis, Nasal Congestion, Nasal Discharge, Nasal Obstruction, Nasal Trauma, Nose Pain, Post Nasal Drip, Sinus Pain, Sinus Pressure, Bleeding Gums, Change in Voice, Dental Pain, Dry Mouth, Dysphagia, Halitosis, Hoarsness, Lip Swelling, Mouth Lesions, Mouth Pain, Odynophagia, Sore Throat, Throat Swelling, Tongue Swelling, Facial Pain, Neck Pain, Neck Mass, Other - Cardiovascular Cardiovascular: absent: As Per HPI, Acrocyanosis, Chest Pain, Chest Pain at Rest, Chest Pain with Activity, Claudication, Diaphoresis, Dyspnea, Dyspnea on Exertion, Edema, Irregular Heart Rhythm, Pain Radiating to Arm/Neck/Jaw, Leg Edema, Leg Ulcers, Lightheadedness, Orthopnea, Palpitations, Paroxysmal Nocturnal Dyspnea, Pedal Edema, Radiating Pain, Rapid Heart Rate, Slow Heart R ate, Syncope, Other - Respiratory Respiratory: Cough - Gastrointestinal Gastrointestinal: absent: As Per HPI, Abdominal Pain, Belching, Bloating, Change in Bowel Habits, Change in Stool Character, Coffee Ground Emesis, Constipation, Cramping, Diarrhea, Dyspepsia, Dysphagia, Early Satiety, Excessive Flatus, Fecal Incontinence, Heartburn, Hematemesis, Hematochezia, Loose Stools, Melena, Nausea, Odynophagia, Temesmus, Vomiting, Other - Genitourinary Genitourinary: absent: As Per HPI, Change in Urinary Stream, Difficulty Urinating, Dysuria, Flank Pain, Hematuria, Pyuria, Nocturia, Urinary Incontinence, Urinary Frequency, Urinary Hesitance, Urinary Urgency, Voiding Freq/Small Amts, Freq UTI, Hx Renal/Bladder Calculi, Hx /Renal Surgery, Bladder Distension, Other - Musculoskeletal Musculoskeletal: absent: As Per HPI, Abnormal Gait, Arthralgias, Atrophy, Back Pain, Deformity, Joint Swelling, Limited Range of Motion, Loss of Height, Muscle Cramps, Muscle Weakness, Myalgias, Neck Pain, Numbness, Radiating Pain into Limb, Stiffness, Tingling, Other - Integumentary Integumentary: absent: As Per HPI, Acne, Alopecia, Bleeding Lesions, Change in Hair, Change in Nails, Change in Pigmentation, Changing Lesions, Dry Skin, Erythema, Furuncle, Hirsutism, Lesions, New Lesions, Non-Healing Lesions, Photo sensitivity, Pruritus, Rash, Skin Pain, Skin Ulcer, Sores, Striae, Swelling, Unusual Bruising, Wounds, Jaundice, Other - Neurological Neurological: absent: As Per HPI, Abnormal Gait, Abnormal Hearing, Abnormal Movements, Abnormal Speech, Behavioral Changes, Burning Sensations, Confusion, Convulsions, Disequilibrium, Dizziness, Numbness, Focal Weakness, Frequent Falls, Headaches, Lack of Coordination, Loss of Vision, Memory Loss, Paresthesias, Radicular Pain, Restless Legs, Sensory Deficit, Syncope, Tingling, Tremor, Vertigo, Weakness, Other Visual Disturbances, Other - Psychiatric Psychiatric: absent: As Per HPI, Abnormal Sleep Pattern, Anhedonia, Anxiety, Auditory Hallucinations, Behavioral Changes, Change in Appetite, Change in Libido, Confusion, Depression, Difficulty Concentrating, Hallucinations, Homicidal Ideation, Hopelessness, Irritability, Memory Loss, Mood Swings, Panic Attacks, Paranoia, Suicidal Ideation, Visual Hallucinations, Tactile Hallucinations, Other - Endocrine Endocrine: absent: As Per HPI, Change in Body Appearance, Change in Libido, Cold Intolorance, Deepening of Voice, Excessive Sweating, Fatigue, Flushing, Heat Intolorance, Increase in Ring/Shoe/Hat Size, Palpitations, Polydipsia, Polyphagia, Polyuria, Other - Hematologic/Lymphatic Hematologic: absent: As Per HPI, Easy Bleeding, Easy Bruising, Lymphadenopathy, Other Past Patient History - Past Medical History & Family History Past Medical History?: Yes - Past Social History Smoking Status: Never Smoked - CARDIAC Hx Cardiac Disorders: Yes - PULMONARY Hx Respiratory Disorders: Yes - NEUROLOGICAL Hx Neurological Disorder: No - HEENT Hx HEENT Problems: No - RENAL Hx Chronic Kidney Disease: Yes - ENDOCRINE/METABOLIC Hx Endocrine Disorders: Yes - HEMATOLOGICAL/ONCOLOGICAL Hx Anemia: Yes Hx Human Immunodeficiency Virus (HIV): No - INTEGUMENTARY Hx Dermatological Problems: No - MUSCULOSKELETAL/RHEUMATOLOGICAL Hx Arthritis: Yes Hx Osteoporosis: Yes - GASTROINTESTINAL Hx Gall Bladder Disease: Yes Hx Gastritis: Yes - GENITOURINARY/GYNECOLOGICAL Hx Genitourinary Disorders: No - PSYCHIATRIC Hx Anxiety: Yes Hx Depression: Yes - SURGICAL HISTORY Hx Cholecystectomy: Yes Hx Coronary Stent: Yes - ANESTHESIA Hx Anesthesia: Yes Hx Anesthesia Reactions: No Hx Malignant Hyperthermia: No Meds Allergies/Adverse Reactions: Allergies Allergy/AdvReac Type Severity Reaction Status Date / Time alprazolam [From Xanax] Allergy SWELLING Verified 01/10/18 09:49 hydromorphone HCl Allergy RASH Verified 01/10/18 09:49 [From Dilaudid] zolpidem tartrate Allergy RASH Verified 01/10/18 09:49 [From Ambien] - Medications Medications: Current Medications Acetaminophen (Tylenol 325mg Tab) 650 mg PO Q6 PRN PRN Reason: Pain, moderate (4-7) Amlodipine Besylate (Norvasc) 10 mg PO DAILY [facility] Aspirin (Ecotrin) 81 mg PO DAILY [facility] Bisoprolol Fumarate (Zebeta) 5 mg PO DAILY [facility] Cholecalciferol (Vitamin D) 1,000 intlu PO DAILY [facility] Ferrous Gluconate (Fergon) 324 mg PO DAILY [facility] Furosemide (Lasix) 40 mg PO DAILY [facility] Last Admin: 01/10/18 16:07 Dose: 40 mg Glipizide (Glucotrol) 10 mg PO DAILY [facility] Sodium Chloride (Sodium Chloride 0.9%) 1,000 mls @ 70 mls/hr IV .[id number] [facility] Last Admin: 01/10/18 16:08 Dose: 70 mls/hr Isosorbide Mononitrate (Imdur Er) 30 mg PO DAILY [facility] Ondansetron HCl (Zofran Inj) 4 mg IVP Q6 PRN PRN Reason: Nausea/Vomiting Pantoprazole Sodium (Protonix Ec Tab) 40 mg PO DAILY [facility] Last Admin: 01/10/18 16:07 Dose: 40 mg Pravastatin Sodium (Pravachol) 40 mg PO HS [facility] Sucralfate (Carafate Tab) 1 gm PO BID [facility] Last Admin: 01/10/18 16:09 Dose: 1 gm Physical Exam - Constitutional Appears: Non-toxic - Head Exam Head Exam: NORMAL INSPECTION - Eye Exam Eye Exam: Normal appearance - ENT Exam ENT Exam: Mucous Membranes Moist - Neck Exam Neck exam: Positive for: Full Rom - Respiratory Exam Respiratory Exam: NORMAL BREATHING PATTERN - Cardiovascular Exam Cardiovascular Exam: REGULAR RHYTHM - GI/Abdominal Exam GI & Abdominal Exam: Normal Bowel Sounds - Rectal Exam Rectal Exam: Deferred - Extremities Exam Extremities exam: Negative for: pedal edema - Back Exam Back exam: NORMAL INSPECTION - Neurological Exam Neurological exam: Alert, Oriented x3 - Psychiatric Exam Psychiatric exam: Normal Affect - Skin Skin Exam: Normal Color Results - Vital Signs Recent Vital Signs: Last Vital Signs Temp 98 F 01/10/18 17:58 Pulse 87 01/10/18 17:58 Resp 19 01/10/18 17:58 BP 122/77 01/10/18 17:58 Pulse Ox 98 01/10/18 17:58 - Labs Result Diagrams: 01/10/18 11:15 01/10/18 11:15 Labs: Laboratory Results - last 24 hr 01/10/18 01/10/18 01/10/18 11:15 11:15 11:50 WBC 14.8 H D RBC 4.02 Hgb 12.1 Hct 37.3 MCV 92.8 MCH 30.0 MCHC 32.3 L RDW 15.0 H Plt Count 237 MPV 8.6 Neut % (Auto) 86.8 H Lymph % (Auto) 4.8 L [place] % (Auto) 6.8 Eos % (Auto) 1.2 Baso % (Auto) 0.4 Neut # (Auto) 12.9 H Lymph # (Auto) 0.7 L [place] # (Auto) 1.0 H Eos # (Auto) 0.2 Baso # (Auto) 0.1 Neutrophils % (Manual) 85 H Band Neutrophils % 4 H Lymphocytes % (Manual) 3 L Monocytes % (Manual) 7 Eosinophils % (Manual) 1 Platelet Estimate Normal Anisocytosis (manual) Slight PT INR APTT pO2 VBG pH VBG pCO2 VBG HCO3 VBG Total CO2 VBG O2 Sat (Calc) VBG Base Excess VBG Potassium Glucose Lactate FiO2 Sodium 141 Potassium 3.5 L Chloride 110 H Carbon Dioxide 17 L Anion Gap 18 BUN 71 H Creatinine 3.4 H Est GFR ( Amer) 16 Est GFR (Non-Af Amer) 13 POC Glucose (mg/dL) Random Glucose 101 Calcium 9.0 Total Bilirubin 0.4 AST 21 ALT 19 Alkaline Phosphatase 95 Troponin I 0.1340 H* NT-Pro-B Natriuret Pep Total Protein 8.0 Albumin 4.1 Globulin 4.0 H Albumin/Globulin Ratio 1.0 Venous Blood Potassium Urine Color Yellow Urine Clarity Slighty-cloudy Urine pH 6.0 Ur Specific [place] 1.010 Urine Protein 100 Urine Glucose (UA) 50 Urine Ketones Negative Urine Blood Small Urine Nitrate Negative Urine Bilirubin Negative Urine Urobilinogen 0.2-1.0 Ur Leukocyte Esterase Neg Urine Microscopic WBC 1 Ur Squamous Epith Cells < 1 Amorphous Sediment Rare H Hyaline Casts >20 H 01/10/18 01/10/18 01/10/18 13:00 17:09 17:09 WBC RBC Hgb Hct MCV MCH MCHC RDW Plt Count MPV Neut % (Auto) Lymph % (Auto) [place] % (Auto) Eos % (Auto) Baso % (Auto) Neut # (Auto) Lymph # (Auto) [place] # (Auto) Eos # (Auto) Baso # (Auto) Neutrophils % (Manual) Band Neutrophils % Lymphocytes % (Manual) Monocytes % (Manual) Eosinophils % (Manual) Platelet Estimate Anisocytosis (manual) PT 10.8 INR 1.0 APTT 29.2 pO2 19 L VBG pH 7.27 L VBG pCO2 44 VBG HCO3 17.7 VBG Total CO2 21.6 L VBG O2 Sat (Calc) 30.1 L VBG Base Excess -6.6 L VBG Potassium 3.3 L Glucose 86 Lactate 1.2 FiO2 21.0 Sodium 138.0 Potassium Chloride 109.0 H Carbon Dioxide Anion Gap BUN Creatinine Est GFR ( Amer) Est GFR (Non-Af Amer) POC Glucose (mg/dL) Random Glucose Calcium Total Bilirubin AST ALT Alkaline Phosphatase Troponin I 0.1250 H* NT-Pro-B Natriuret Pep 3570 H Total Protein Albumin Globulin Albumin/Globulin Ratio Venous Blood Potassium 3.3 L Urine Color Urine Clarity Urine pH Ur Specific [place] Urine Protein Urine Glucose (UA) Urine Ketones Urine Blood Urine Nitrate Urine Bilirubin Urine Urobilinogen Ur Leukocyte Esterase Urine Microscopic WBC Ur Squamous Epith Cells Amorphous Sediment Hyaline Casts 01/10/18 17:10 WBC RBC Hgb Hct MCV MCH MCHC RDW Plt Count MPV Neut % (Auto) Lymph % (Auto) [place] % (Auto) Eos % (Auto) Baso % (Auto) Neut # (Auto) Lymph # (Auto) [place] # (Auto) Eos # (Auto) Baso # (Auto) Neutrophils % (Manual) Band Neutrophils % Lymphocytes % (Manual) Monocytes % (Manual) Eosinophils % (Manual) Platelet Estimate Anisocytosis (manual) PT INR APTT pO2 VBG pH VBG pCO2 VBG HCO3 VBG Total CO2 VBG O2 Sat (Calc) VBG Base Excess VBG Potassium Glucose Lactate FiO2 Sodium Potassium Chloride Carbon Dioxide Anion Gap BUN Creatinine Est GFR ( Amer) Est GFR (Non-Af Amer) POC Glucose (mg/dL) 123 H Random Glucose Calcium Total Bilirubin AST ALT Alkaline Phosphatase Troponin I NT-Pro-B Natriuret Pep Total Protein Albumin Globulin Albumin/Globulin Ratio Venous Blood Potassium Urine Color Urine Clarity Urine pH Ur Specific [place] Urine Protein Urine Glucose (UA) Urine Ketones Urine Blood Urine Nitrate Urine Bilirubin Urine Urobilinogen Ur Leukocyte Esterase Urine Microscopic WBC Ur Squamous Epith Cells Amorphous Sediment Hyaline Casts - EKG Data EKG Interpreted by: Myself EKG shows normal: Sinus rhythm Assessment & Plan (1) Elevated troponin Assessment and Plan: does not appear to be due to CAD. recommend conservative therapy. ASA 81 mg daily Status: Chronic (2) Hyperlipemia Assessment and Plan: statin therapy Status: Acute (3) Diabetes mellitus Assessment and Plan: blood glucose control Status: Chronic
--- NOTE | 2018-01-10 18:28 | CARD ---
APPROVED REPORT Date of service: 01/10/2018 EKG Measurement Heart [id number] <Conclusion> Normal sinus rhythm Normal ECG
[2018-01-10] MEDS: Pravastatin Sodium 40 MG TAB PO SCH (22:44)
[2018-01-11 05:49] LABS: HEMOGLOBIN 10.8 g/dL (12.0-16.0); MEAN CELL VOLUME 94.3 fl (81.0-99.0); MEAN CORPUSCULAR HGB CONC 31.8 g/dL (33.0-37.0); RBC 3.6 Mil/uL (3.80-5.20); RED CELL DISTRIBUTION WIDTH 14.9 % (11.5-14.5); WHITE BLOOD COUNT 12.1 K/uL (4.8-10.8)
[2018-01-11 06:27] LABS: ALBUMIN 3.3 g/dL (3.5-5.0)
[2018-01-11 06:45] LABS: HDL CHOLESTEROL 48 MG/DL (30-70)
[2018-01-11 06:56] LABS: LDL CHOLESTEROL 45 mg/dL (0-129)
--- NOTE | 2018-01-11 08:07 | CP.PCM.PN ---
<MorrisonSultan - Last Filed: 01/11/18 11:20> Subjective - Date & Time of Evaluation Date of Evaluation: 01/11/18 Time of Evaluation: 07:15 - Subjective Subjective: Patient seen and examined with Dr. Austin this morning. No acute overnight events. Still has cough and right sided ribs pain with coughing. Denies chest pain, dyspnea, fever, chills, nausea or vomiting. Tolerating PO. Objective - Vital Signs/Intake and Output Vital Signs (last 24 hours): Temp Pulse Resp BP Pulse Ox 98.6 F 85 18 144/75 93 L 01/11/18 05:19 01/11/18 05:19 01/11/18 05:19 01/11/18 05:19 01/11/18 05:19 - Medications Medications: Current Medications Acetaminophen (Tylenol 325mg Tab) 650 mg PO Q6 PRN PRN Reason: Pain, moderate (4-7) Amlodipine Besylate (Norvasc) 10 mg PO DAILY [facility] Aspirin (Ecotrin) 81 mg PO DAILY [facility] Bisoprolol Fumarate (Zebeta) 5 mg PO DAILY [facility] Cholecalciferol (Vitamin D) 1,000 intlu PO DAILY [facility] Ferrous Gluconate (Fergon) 324 mg PO DAILY [facility] Furosemide (Lasix) 40 mg PO DAILY [facility] Last Admin: 01/10/18 16:07 Dose: 40 mg Glipizide (Glucotrol) 10 mg PO DAILY [facility] Sodium Chloride (Sodium Chloride 0.9%) 1,000 mls @ 70 mls/hr IV .[id number] [facility] Last Admin: 01/10/18 16:08 Dose: 70 mls/hr Isosorbide Mononitrate (Imdur Er) 30 mg PO DAILY [facility] Ondansetron HCl (Zofran Inj) 4 mg IVP Q6 PRN PRN Reason: Nausea/Vomiting Pantoprazole Sodium (Protonix Ec Tab) 40 mg PO DAILY [facility] Last Admin: 01/10/18 16:07 Dose: 40 mg Pravastatin Sodium (Pravachol) 40 mg PO HS [facility] Last Admin: 01/10/18 22:44 Dose: 40 mg Sucralfate (Carafate Tab) 1 gm PO BID [facility] Last Admin: 01/10/18 16:09 Dose: 1 gm - Labs Labs: 01/11/18 04:20 01/11/18 04:20 PT 10.8 Seconds (9.8-13.1) 01/10/18 17:09 INR 1.0 01/10/18 17:09 APTT 29.2 Seconds (25.6-37.1) 01/10/18 17:09 - Constitutional Appears: Non-toxic, No Acute Distress - Head Exam Head Exam: NORMAL INSPECTION - ENT Exam ENT Exam: Mucous Membranes Moist - Respiratory Exam Respiratory Exam: Prolonged Expiratory Phase, Wheezes (expiratory wheezing), NORMAL BREATHING PATTERN. absent: Accessory Muscle Use, Respiratory Distress - Cardiovascular Exam Cardiovascular Exam: REGULAR RHYTHM, +S1, +S2 - GI/Abdominal Exam GI & Abdominal Exam: Soft, Normal Bowel Sounds. absent: Tenderness - Neurological Exam Neurological Exam: Alert, Awake - Psychiatric Exam Psychiatric exam: Normal Affect, Normal Mood - Skin Skin Exam: Normal Color, Warm Assessment and Plan - Assessment and Plan (Free Text) Assessment: 77 year old Female with PMHx of HTN, HLD, CAD, CHF, COPD, CKD, NIDDM, gastritis, presents to [facility] for some productive cough x 1 weeks associated right sided flank pain and abdominal pain when coughing for one day. Patient reports subjective fever, NBNB vomiting last night and 3 episodes of loose BM this morning. Patient is admitted for pneumonia and elevated troponin. Plan: Cardiology consult: Dr Stout, consult appreciated. Troponin trending down. Patient does not have CP Nephrology consult for CAMPBELL on CKD c/w ceftriaxone and azithromycin Duoneb q6hr c/w home medications c/w IV fluids AM labs rest of the plan as ordered Plan discussed with Dr. Norman Mccracken, pgy-2 <Manpreet Austin - Last Filed: 01/12/18 11:45> Objective - Vital Signs/Intake and Output Vital Signs (last 24 hours): Temp Pulse Resp BP Pulse Ox 98.9 F 85 19 128/64 92 L 01/12/18 04:29 01/12/18 04:29 01/12/18 04:29 01/12/18 04:29 01/12/18 04:29 - Medications Medications: Current Medications Acetaminophen (Tylenol 325mg Tab) 650 mg PO Q6 PRN PRN Reason: Pain, moderate (4-7) Amlodipine Besylate (Norvasc) 10 mg PO DAILY [facility] Last Admin: 01/12/18 09:38 Dose: 10 mg Aspirin (Ecotrin) 81 mg PO DAILY [facility] Last Admin: 01/12/18 09:38 Dose: 81 mg Bisoprolol Fumarate (Zebeta) 5 mg PO DAILY [facility] Last Admin: 01/12/18 09:38 Dose: 5 mg Cholecalciferol (Vitamin D) 1,000 intlu PO DAILY [facility] Last Admin: 01/12/18 09:39 Dose: 1,000 intlu Ferrous Gluconate (Fergon) 324 mg PO DAILY [facility] Last Admin: 01/12/18 09:38 Dose: 324 mg Furosemide (Lasix) 40 mg PO DAILY [facility] Last Admin: 01/11/18 08:42 Dose: 40 mg Glipizide (Glucotrol) 10 mg PO DAILY [facility] Last Admin: 01/12/18 09:39 Dose: 10 mg Sodium Chloride (Sodium Chloride 0.9%) 1,000 mls @ 70 mls/hr IV .[id number] [facility] Last Admin: 01/11/18 22:34 Dose: 70 mls/hr Isosorbide Mononitrate (Imdur Er) 30 mg PO DAILY [facility] Last Admin: 01/12/18 09:38 Dose: 30 mg Ondansetron HCl (Zofran Inj) 4 mg IVP Q6 PRN PRN Reason: Nausea/Vomiting Pantoprazole Sodium (Protonix Ec Tab) 40 mg PO DAILY [facility] Last Admin: 01/12/18 09:38 Dose: 40 mg Pravastatin Sodium (Pravachol) 40 mg PO HS [facility] Last Admin: 01/11/18 21:22 Dose: 40 mg Sucralfate (Carafate Tab) 1 gm PO BID [facility] Last Admin: 01/12/18 09:38 Dose: 1 gm Tramadol HCl (Ultram) 50 mg PO Q12 PRN PRN Reason: pain Last Admin: 01/12/18 09:41 Dose: 50 mg - Labs Labs: 01/12/18 06:30 01/12/18 06:30 PT 10.8 Seconds (9.8-13.1) 01/10/18 17:09 INR 1.0 01/10/18 17:09 APTT 29.2 Seconds (25.6-37.1) 01/10/18 17:09 Assessment and Plan - Assessment and Plan (Free Text) Assessment: Patient was personally seen and examined by me in rounds with residents. Available labs and diagnostic data reviewed. Case, Patient's condition and management plan discussed with residents in rounds. Agree with resident's progress note. Plan: As ordered.
[2018-01-11] MEDS: Pantoprazole 40 mg EC Tab PO SCH (08:41)
[2018-01-11] MEDS: Cholecalciferol 1,000 INTLU TAB PO SCH (08:43)
[2018-01-11] MEDS: Sodium Chloride 0.9% 1,000 ML IV SCH ×2 (08:43→22:34)
[2018-01-11] MEDS ORDERED: Sodium Chloride 3% for Inhalation 4 ML VIAL.NEB IH PRN (09:05)
[2018-01-11] MEDS ORDERED: Acetaminophen-Codeine 300/30 mg Tab PO PRN (09:55)
--- NOTE | 2018-01-11 10:13 | CARD ---
APPROVED REPORT Date of service: 01/10/2018 EKG Measurement Heart [id number] <Conclusion> Normal sinus rhythm Cannot rule out Anterior infarct, age undetermined Abnormal ECG
--- NOTE | 2018-01-11 14:38 | CP.PCM.CON ---
History of Present Illness - History of Present Illness History of Present Illness: 77 year old Female with PMHx of HTN, HLD, CAD, CHF, COPD, CKD, NIDDM, gastritis, ? DJD, spinal stenosis presents to [facility] ED for some productive cough x 1 weeks associated right sided flank pain and abdominal pain when coughing for one day. Patient reports subjective fever, NBNB vomiting last night and 3 episodes of loose BM this morning. Patient also reports dysuria, urinary frequency and suprapubic discomfort for 2 days. Reports she has chronic lower back pain. Denies chest pain, dyspnea, headache, dizziness or focal weakness. Patient is admitted for pneumonia and elevated troponin. renal consult is requested for evaluation of increased bun/cr, pt is ambulating with physical therapy pt is feeling slightly better Review of Systems - Review of Systems All systems: reviewed and no additional remarkable complaints except Review of Systems: As per HPI - Constitutional Constitutional: As Per HPI - EENT Eyes: As Per HPI Ears: As Per HPI Nose/Mouth/Throat: As Per HPI - Breasts Breasts: As Per HPI - Cardiovascular Cardiovascular: As Per HPI - Respiratory Respiratory: As Per HPI - Gastrointestinal Gastrointestinal: As Per HPI - Genitourinary Genitourinary: As Per HPI - Musculoskeletal Musculoskeletal: As Per HPI - Integumentary Integumentary: As Per HPI - Neurological Neurological: As Per HPI - Psychiatric Psychiatric: As Per HPI - Endocrine Endocrine: As Per HPI - Hematologic/Lymphatic Hematologic: As Per HPI Past Patient History - Past Medical History & Family History Past Medical History?: Yes - Past Social History Smoking Status: Never Smoked - CARDIAC Hx Cardiac Disorders: Yes - PULMONARY Hx Respiratory Disorders: Yes - NEUROLOGICAL Hx Neurological Disorder: No - HEENT Hx HEENT Problems: No - RENAL Hx Chronic Kidney Disease: Yes - ENDOCRINE/METABOLIC Hx Endocrine Disorders: Yes - HEMATOLOGICAL/ONCOLOGICAL Hx AIDS: No Hx Human Immunodeficiency Virus (HIV): No - INTEGUMENTARY Hx Dermatological Problems: No - MUSCULOSKELETAL/RHEUMATOLOGICAL Hx Falls: No - GASTROINTESTINAL Hx Gall Bladder Disease: Yes Hx Gastritis: Yes - GENITOURINARY/GYNECOLOGICAL Hx Genitourinary Disorders: No - PSYCHIATRIC Hx Anxiety: Yes Hx Depression: Yes - SURGICAL HISTORY Hx Cholecystectomy: Yes Hx Coronary Stent: Yes - ANESTHESIA Hx Anesthesia: Yes Hx Anesthesia Reactions: No Hx Malignant Hyperthermia: No Meds Allergies/Adverse Reactions: Allergies Allergy/AdvReac Type Severity Reaction Status Date / Time alprazolam [From Xanax] Allergy SWELLING Verified 01/10/18 09:49 hydromorphone HCl Allergy RASH Verified 01/10/18 09:49 [From Dilaudid] zolpidem tartrate Allergy RASH Verified 01/10/18 09:49 [From Ambien] - Medications Medications: Current Medications Acetaminophen (Tylenol 325mg Tab) 650 mg PO Q6 PRN PRN Reason: Pain, moderate (4-7) Amlodipine Besylate (Norvasc) 10 mg PO DAILY [facility] Last Admin: 01/11/18 08:40 Dose: 10 mg Aspirin (Ecotrin) 81 mg PO DAILY [facility] Last Admin: 01/11/18 08:42 Dose: 81 mg Bisoprolol Fumarate (Zebeta) 5 mg PO DAILY [facility] Last Admin: 01/11/18 08:43 Dose: 5 mg Cholecalciferol (Vitamin D) 1,000 intlu PO DAILY [facility] Last Admin: 01/11/18 08:43 Dose: 1,000 intlu Ferrous Gluconate (Fergon) 324 mg PO DAILY [facility] Last Admin: 01/11/18 08:41 Dose: 324 mg Furosemide (Lasix) 40 mg PO DAILY [facility] Last Admin: 01/11/18 08:42 Dose: 40 mg Glipizide (Glucotrol) 10 mg PO DAILY [facility] Last Admin: 01/11/18 08:41 Dose: 10 mg Sodium Chloride (Sodium Chloride 0.9%) 1,000 mls @ 70 mls/hr IV .[id number] [facility] Last Admin: 01/11/18 08:43 Dose: 70 mls/hr Isosorbide Mononitrate (Imdur Er) 30 mg PO DAILY [facility] Last Admin: 01/11/18 08:42 Dose: 30 mg Ondansetron HCl (Zofran Inj) 4 mg IVP Q6 PRN PRN Reason: Nausea/Vomiting Pantoprazole Sodium (Protonix Ec Tab) 40 mg PO DAILY [facility] Last Admin: 01/11/18 08:41 Dose: 40 mg Pravastatin Sodium (Pravachol) 40 mg PO HS [facility] Last Admin: 01/10/18 22:44 Dose: 40 mg Sucralfate (Carafate Tab) 1 gm PO BID [facility] Last Admin: 01/11/18 08:41 Dose: 1 gm Tramadol HCl (Ultram) 50 mg PO Q12 PRN PRN Reason: pain Last Admin: 01/11/18 11:32 Dose: 50 mg Physical Exam - Constitutional Appears: Well, Non-toxic, No Acute Distress - Head Exam Head Exam: ATRAUMATIC, NORMAL INSPECTION - Eye Exam Eye Exam: EOMI, Normal appearance, PERRL Pupil Exam: NORMAL ACCOMODATION - ENT Exam ENT Exam: Mucous Membranes Moist - Neck Exam Neck exam: Positive for: Full Rom, Normal Inspection - Respiratory Exam Respiratory Exam: Clear to Auscultation Bilateral, NORMAL BREATHING PATTERN - Cardiovascular Exam Cardiovascular Exam: REGULAR RHYTHM, +S1, +S2 - GI/Abdominal Exam GI & Abdominal Exam: Normal Bowel Sounds, Soft - Rectal Exam Rectal Exam: Deferred - Extremities Exam Extremities exam: Positive for: normal inspection Additional comments: no edema - Neurological Exam Neurological exam: Alert, CN II-XII Intact, Normal Gait, Oriented x3 - Psychiatric Exam Psychiatric exam: Normal Affect - Skin Skin Exam: Normal Color, Warm Results - Vital Signs Recent Vital Signs: Last Vital Signs Temp 98.6 F 01/11/18 12:22 Pulse 76 01/11/18 12:22 Resp 18 01/11/18 12:22 BP 102/63 01/11/18 12:22 Pulse Ox 97 01/11/18 12:22 - Labs Result Diagrams: 01/11/18 04:20 01/11/18 04:20 Labs: Laboratory Results - last 24 hr 01/10/18 01/10/18 01/10/18 17:09 17:09 17:09 WBC RBC Hgb Hct MCV MCH MCHC RDW Plt Count PT 10.8 INR 1.0 APTT 29.2 Sodium Potassium Chloride Carbon Dioxide Anion Gap BUN Creatinine Est GFR ( Amer) Est GFR (Non-Af Amer) POC Glucose (mg/dL) Random Glucose Hemoglobin A1c Calcium Phosphorus Magnesium Total Bilirubin AST ALT Alkaline Phosphatase Troponin I 0.1250 H* NT-Pro-B Natriuret Pep 3570 H Total Protein Albumin Globulin Albumin/Globulin Ratio Triglycerides Cholesterol LDL Cholesterol Direct HDL Cholesterol Procalcitonin 22.68 H 01/10/18 01/10/18 01/11/18 17:10 21:21 02:00 WBC RBC Hgb Hct MCV MCH MCHC RDW Plt Count PT INR APTT Sodium Potassium Chloride Carbon Dioxide Anion Gap BUN Creatinine Est GFR ( Amer) Est GFR (Non-Af Amer) POC Glucose (mg/dL) 123 H 78 Random Glucose Hemoglobin A1c Calcium Phosphorus Magnesium Total Bilirubin AST ALT Alkaline Phosphatase Troponin I 0.1170 NT-Pro-B Natriuret Pep Total Protein Albumin Globulin Albumin/Globulin Ratio Triglycerides Cholesterol LDL Cholesterol Direct HDL Cholesterol Procalcitonin 01/11/18 01/11/18 01/11/18 04:20 04:20 04:20 WBC 12.1 H RBC 3.60 L Hgb 10.8 L Hct 33.9 L MCV 94.3 MCH 30.0 MCHC 31.8 L RDW 14.9 H Plt Count 215 PT INR APTT Sodium 142 Potassium 3.3 L Chloride 114 H Carbon Dioxide 19 L Anion Gap 12 BUN 70 H Creatinine 3.6 H Est GFR ( Amer) 15 Est GFR (Non-Af Amer) 12 POC Glucose (mg/dL) Random Glucose 137 H Hemoglobin A1c 8.3 H Calcium 8.0 L Phosphorus 4.1 Magnesium 1.8 Total Bilirubin 0.2 AST 17 ALT 15 Alkaline Phosphatase 89 Troponin I NT-Pro-B Natriuret Pep Total Protein 6.8 Albumin 3.3 L Globulin 3.5 Albumin/Globulin Ratio 1.0 Triglycerides Cholesterol LDL Cholesterol Direct HDL Cholesterol Procalcitonin 01/11/18 01/11/18 04:20 11:29 WBC RBC Hgb Hct MCV MCH MCHC RDW Plt Count PT INR APTT Sodium Potassium Chloride Carbon Dioxide Anion Gap BUN Creatinine Est GFR ( Amer) Est GFR (Non-Af Amer) POC Glucose (mg/dL) 213 H Random Glucose Hemoglobin A1c Calcium Phosphorus Magnesium Total Bilirubin AST ALT Alkaline Phosphatase Troponin I NT-Pro-B Natriuret Pep Total Protein Albumin Globulin Albumin/Globulin Ratio Triglycerides 70 D Cholesterol 135 LDL Cholesterol Direct 45 HDL Cholesterol 48 Procalcitonin Assessment & Plan - Assessment and Plan (Free Text) Assessment: 7 year old Female with PMHx of HTN, HLD, CAD, CHF, COPD, CKD, NIDDM, gastritis, ? DJD, spinal stenosis was admitted with cough, sob, feverish, dysuria, frequency, suprapubic pain, increased bun/cr, base line s.cr 1.5-2 1. CAMPBELL on ckd-3 2. HTMN 3. DM 4. pneumonia check urine lytes, osm, cr, urine c/s c/w ivf 1/2 ns at 70 ml/hr check bmp in am c/w iv abx as per Dr. EMMANUEL
--- NOTE | 2018-01-11 19:23 | CP.PCM.PN ---
Subjective - Date & Time of Evaluation Date of Evaluation: 01/11/18 Time of Evaluation: 19:00 - Subjective Subjective: no current chest pain Objective - Vital Signs/Intake and Output Vital Signs (last 24 hours): Temp Pulse Resp BP Pulse Ox 97.9 F 79 18 118/68 94 L 01/11/18 16:06 01/11/18 16:06 01/11/18 16:06 01/11/18 16:06 01/11/18 16:06 - Medications Medications: Current Medications Acetaminophen (Tylenol 325mg Tab) 650 mg PO Q6 PRN PRN Reason: Pain, moderate (4-7) Amlodipine Besylate (Norvasc) 10 mg PO DAILY [facility] Last Admin: 01/11/18 08:40 Dose: 10 mg Aspirin (Ecotrin) 81 mg PO DAILY [facility] Last Admin: 01/11/18 08:42 Dose: 81 mg Bisoprolol Fumarate (Zebeta) 5 mg PO DAILY [facility] Last Admin: 01/11/18 08:43 Dose: 5 mg Cholecalciferol (Vitamin D) 1,000 intlu PO DAILY [facility] Last Admin: 01/11/18 08:43 Dose: 1,000 intlu Ferrous Gluconate (Fergon) 324 mg PO DAILY [facility] Last Admin: 01/11/18 08:41 Dose: 324 mg Furosemide (Lasix) 40 mg PO DAILY [facility] Last Admin: 01/11/18 08:42 Dose: 40 mg Glipizide (Glucotrol) 10 mg PO DAILY [facility] Last Admin: 01/11/18 08:41 Dose: 10 mg Sodium Chloride (Sodium Chloride 0.9%) 1,000 mls @ 70 mls/hr IV .[id number] [facility] Last Admin: 01/11/18 08:43 Dose: 70 mls/hr Isosorbide Mononitrate (Imdur Er) 30 mg PO DAILY [facility] Last Admin: 01/11/18 08:42 Dose: 30 mg Ondansetron HCl (Zofran Inj) 4 mg IVP Q6 PRN PRN Reason: Nausea/Vomiting Pantoprazole Sodium (Protonix Ec Tab) 40 mg PO DAILY [facility] Last Admin: 01/11/18 08:41 Dose: 40 mg Pravastatin Sodium (Pravachol) 40 mg PO HS [facility] Last Admin: 01/10/18 22:44 Dose: 40 mg Sucralfate (Carafate Tab) 1 gm PO BID [facility] Last Admin: 01/11/18 17:01 Dose: 1 gm Tramadol HCl (Ultram) 50 mg PO Q12 PRN PRN Reason: pain Last Admin: 01/11/18 11:32 Dose: 50 mg - Labs Labs: 01/11/18 04:20 01/11/18 04:20 PT 10.8 Seconds (9.8-13.1) 01/10/18 17:09 INR 1.0 01/10/18 17:09 APTT 29.2 Seconds (25.6-37.1) 01/10/18 17:09 - Constitutional Appears: Non-toxic - Head Exam Head Exam: NORMAL INSPECTION - Eye Exam Eye Exam: Normal appearance - ENT Exam ENT Exam: Mucous Membranes Moist - Neck Exam Neck Exam: Full ROM - Respiratory Exam Respiratory Exam: Decreased Breath Sounds - Cardiovascular Exam Cardiovascular Exam: REGULAR RHYTHM - GI/Abdominal Exam GI & Abdominal Exam: Normal Bowel Sounds - Rectal Exam Rectal Exam: Deferred - Extremities Exam Extremities Exam: absent: Pedal Edema - Back Exam Back Exam: NORMAL INSPECTION - Neurological Exam Neurological Exam: Alert - Psychiatric Exam Psychiatric exam: Normal Affect - Skin Skin Exam: Normal Color Assessment and Plan (1) Elevated troponin Assessment & Plan: likely not due to ACS. no angina. recommend conservative therapy. Status: Chronic (2) Hyperlipemia Assessment & Plan: statin therapy Status: Acute (3) Diabetes mellitus Status: Chronic
[2018-01-11] MEDS: Pravastatin Sodium 40 MG TAB PO SCH (21:22)
[2018-01-12 07:07] LABS: HEMOGLOBIN 10.8 g/dL (12.0-16.0); MEAN CORPUSCULAR HEMOGLOBIN 29.9 pg (27.0-31.0); MEAN CORPUSCULAR HGB CONC 32.9 g/dL (33.0-37.0); RBC 3.61 Mil/uL (3.80-5.20)
[2018-01-12 07:18] LABS: CALCIUM 7.8 mg/dL (8.4-10.2)
[2018-01-12] MEDS: Pantoprazole 40 mg EC Tab PO SCH (09:38)
[2018-01-12] MEDS: Cholecalciferol 1,000 INTLU TAB PO SCH (09:39)
--- NOTE | 2018-01-12 13:47 | CP.PCM.PN ---
Subjective - Date & Time of Evaluation Date of Evaluation: 01/12/18 Time of Evaluation: 13:47 - Subjective Subjective: 77 year old Female with PMHx of HTN, HLD, CAD, CHF, COPD, CKD, NIDDM, gastritis, ? DJD, spinal stenosis presents to [facility] ED for some productive cough x 1 weeks associated right sided flank pain and abdominal pain when coughing for one day. pt is feeling slightly better, renal function is slowly improving Objective - Vital Signs/Intake and Output Vital Signs (last 24 hours): Temp Pulse Resp BP Pulse Ox 98.9 F 85 19 128/64 92 L 01/12/18 04:29 01/12/18 04:29 01/12/18 04:29 01/12/18 04:29 01/12/18 04:29 - Medications Medications: Current Medications Acetaminophen (Tylenol 325mg Tab) 650 mg PO Q6 PRN PRN Reason: Pain, moderate (4-7) Amlodipine Besylate (Norvasc) 10 mg PO DAILY [facility] Last Admin: 01/12/18 09:38 Dose: 10 mg Aspirin (Ecotrin) 81 mg PO DAILY [facility] Last Admin: 01/12/18 09:38 Dose: 81 mg Bisoprolol Fumarate (Zebeta) 5 mg PO DAILY [facility] Last Admin: 01/12/18 09:38 Dose: 5 mg Cholecalciferol (Vitamin D) 1,000 intlu PO DAILY [facility] Last Admin: 01/12/18 09:39 Dose: 1,000 intlu Ferrous Gluconate (Fergon) 324 mg PO DAILY [facility] Last Admin: 01/12/18 09:38 Dose: 324 mg Furosemide (Lasix) 40 mg PO DAILY [facility] Last Admin: 01/11/18 08:42 Dose: 40 mg Glipizide (Glucotrol) 10 mg PO DAILY [facility] Last Admin: 01/12/18 09:39 Dose: 10 mg Sodium Chloride (Sodium Chloride 0.9%) 1,000 mls @ 70 mls/hr IV .[id number] [facility] Last Admin: 01/11/18 22:34 Dose: 70 mls/hr Isosorbide Mononitrate (Imdur Er) 30 mg PO DAILY [facility] Last Admin: 01/12/18 09:38 Dose: 30 mg Ondansetron HCl (Zofran Inj) 4 mg IVP Q6 PRN PRN Reason: Nausea/Vomiting Pantoprazole Sodium (Protonix Ec Tab) 40 mg PO DAILY [facility] Last Admin: 01/12/18 09:38 Dose: 40 mg Pravastatin Sodium (Pravachol) 40 mg PO HS [facility] Last Admin: 01/11/18 21:22 Dose: 40 mg Sucralfate (Carafate Tab) 1 gm PO BID [facility] Last Admin: 01/12/18 09:38 Dose: 1 gm Tramadol HCl (Ultram) 50 mg PO Q12 PRN PRN Reason: pain Last Admin: 01/12/18 09:41 Dose: 50 mg - Labs Labs: 01/12/18 06:30 01/12/18 06:30 PT 10.8 Seconds (9.8-13.1) 01/10/18 17:09 INR 1.0 01/10/18 17:09 APTT 29.2 Seconds (25.6-37.1) 01/10/18 17:09 - Constitutional Appears: Well, No Acute Distress - Head Exam Head Exam: ATRAUMATIC, NORMAL INSPECTION, NORMOCEPHALIC - Eye Exam Eye Exam: EOMI, Normal appearance, PERRL Pupil Exam: NORMAL ACCOMODATION - ENT Exam ENT Exam: Mucous Membranes Moist - Neck Exam Neck Exam: Full ROM, Normal Inspection - Respiratory Exam Respiratory Exam: Clear to Ausculation Bilateral, NORMAL BREATHING PATTERN - Cardiovascular Exam Cardiovascular Exam: REGULAR RHYTHM, +S1, +S2 - GI/Abdominal Exam GI & Abdominal Exam: Soft, Normal Bowel Sounds - Rectal Exam Rectal Exam: Deferred - Neurological Exam Neurological Exam: Alert, Awake, CN II-XII Intact, Normal Gait, Oriented x3 - Psychiatric Exam Psychiatric exam: Normal Affect - Skin Skin Exam: Normal Color Assessment and Plan - Assessment and Plan (Free Text) Assessment: 77 year old Female with PMHx of HTN, HLD, CAD, CHF, COPD, CKD, NIDDM, gastritis, ? DJD, spinal stenosis was admitted with cough, sob, feverish, dysuria, frequency, supra pubic pain, increased bun/cr, base line s.cr 1.5-2 1. CAMPBELL on ckd-3 2. HTMN 3. DM 4. pneumonia check urine lytes, osm, cr, urine c/s c/w ivf 1/2 ns at 70 ml/hr check bmp in am c/w iv abx renal function is improving
[2018-01-12] MEDS: Oxycodone/Acetaminophen 5/325 mg Tab PO SCH (21:03)
[2018-01-12] MEDS: Pravastatin Sodium 40 MG TAB PO SCH (21:04)
[2018-01-13 07:09] LABS: HEMOGLOBIN 10.8 g/dL (12.0-16.0); MEAN CELL VOLUME 92.2 fl (81.0-99.0); MEAN CORPUSCULAR HEMOGLOBIN 30.2 pg (27.0-31.0); MEAN CORPUSCULAR HGB CONC 32.7 g/dL (33.0-37.0); RBC 3.56 Mil/uL (3.80-5.20); RED CELL DISTRIBUTION WIDTH 14.7 % (11.5-14.5); WHITE BLOOD COUNT 6.6 K/uL (4.8-10.8)
[2018-01-13 07:26] LABS: ALB/GLOB RATIO 0.9 (1.0-2.1); ALBUMIN 3.4 g/dL (3.5-5.0); CALCIUM 8.3 mg/dL (8.4-10.2)
[2018-01-13] MEDS: Pantoprazole 40 mg EC Tab PO SCH (10:31)
[2018-01-13] MEDS: Cholecalciferol 1,000 INTLU TAB PO SCH (10:32)
[2018-01-13] MEDS: Oxycodone/Acetaminophen 5/325 mg Tab PO SCH ×2 (10:34→21:19)
--- NOTE | 2018-01-13 12:06 | PN ---
DATE: 01/13/2018 SUBJECTIVE: The patient seen and examined. Interim events noted. The patient remains in progressive care unit, on telemetry monitoring. The patient had chronic pain, not controlled with tramadol and were ordered yesterday. The patient tolerated well and medicine helped with the pain. Still complains of occasional cough and wheezing, but no chest pain, was able to resume therapy without any chest pain or shortness of breath. PHYSICAL EXAMINATION: GENERAL: The patient is in no acute distress. VITAL SIGNS: Stable. HEART: S1 and S2, normal and regular. LUNGS: Good bilateral air exchange. Occasional rhonchi. Crepitation improved. ABDOMEN: Soft and nontender. EXTREMITIES: No edema. No calf swelling. No tenderness. No acute ischemia. 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 DIAGNOSTIC DATA: Available diagnostic data reviewed. Telemetry monitoring does not reveal significant arrhythmia. ASSESSMENT AND PLAN: Overall, the patient's general medical condition is stable. Manpreet Austin MD
--- NOTE | 2018-01-13 15:01 | CP.PCM.PN ---
Subjective - Date & Time of Evaluation Date of Evaluation: 01/13/18 Time of Evaluation: 15:01 - Subjective Subjective: pt is feeling slightly b jalyn, + cough and back pain no edema, no cp, no palpitation, no nausea, no vomitings s.cr is improving with iv hydration Objective - Vital Signs/Intake and Output Vital Signs (last 24 hours): Temp Pulse Resp BP Pulse Ox 97.6 F 71 18 119/67 100 01/13/18 13:00 01/13/18 13:00 01/13/18 13:00 01/13/18 13:00 01/13/18 13:00 - Medications Medications: Current Medications Acetaminophen (Tylenol 325mg Tab) 650 mg PO Q6 PRN PRN Reason: Pain, moderate (4-7) Amlodipine Besylate (Norvasc) 10 mg PO DAILY [facility] Last Admin: 01/13/18 10:31 Dose: 10 mg Aspirin (Ecotrin) 81 mg PO DAILY [facility] Last Admin: 01/13/18 10:32 Dose: 81 mg Bisoprolol Fumarate (Zebeta) 5 mg PO DAILY [facility] Last Admin: 01/13/18 10:31 Dose: 5 mg Cholecalciferol (Vitamin D) 1,000 intlu PO DAILY [facility] Last Admin: 01/13/18 10:32 Dose: 1,000 intlu Ferrous Gluconate (Fergon) 324 mg PO DAILY [facility] Last Admin: 01/13/18 10:32 Dose: 324 mg Furosemide (Lasix) 40 mg PO DAILY [facility] Last Admin: 01/11/18 08:42 Dose: 40 mg Glipizide (Glucotrol) 10 mg PO DAILY [facility] Last Admin: 01/13/18 10:32 Dose: 10 mg Sodium Chloride (Sodium Chloride 0.9%) 1,000 mls @ 70 mls/hr IV .[id number] [facility] Last Admin: 01/11/18 22:34 Dose: 70 mls/hr Isosorbide Mononitrate (Imdur Er) 30 mg PO DAILY [facility] Last Admin: 01/13/18 10:32 Dose: 30 mg Ondansetron HCl (Zofran Inj) 4 mg IVP Q6 PRN PRN Reason: Nausea/Vomiting Last Admin: 01/13/18 06:48 Dose: 4 mg Oxycodone/Acetaminophen (Percocet 5/325 Mg Tab) 1 tab PO Q12 [facility] Stop: 01/15/18 21:01 Last Admin: 01/13/18 10:34 Dose: 1 tab Pantoprazole Sodium (Protonix Ec Tab) 40 mg PO DAILY [facility] Last Admin: 01/13/18 10:31 Dose: 40 mg Pravastatin Sodium (Pravachol) 40 mg PO HS [facility] Last Admin: 01/12/18 21:04 Dose: 40 mg Sucralfate (Carafate Tab) 1 gm PO BID [facility] Last Admin: 01/13/18 10:32 Dose: 1 gm Tramadol HCl (Ultram) 50 mg PO Q12 PRN PRN Reason: pain Last Admin: 01/12/18 09:41 Dose: 50 mg - Labs Labs: 01/13/18 06:00 01/13/18 06:00 PT 10.8 Seconds (9.8-13.1) 01/10/18 17:09 INR 1.0 01/10/18 17:09 APTT 29.2 Seconds (25.6-37.1) 01/10/18 17:09 - Constitutional Appears: Well, No Acute Distress - Head Exam Head Exam: ATRAUMATIC, NORMAL INSPECTION, NORMOCEPHALIC - Eye Exam Eye Exam: EOMI, Normal appearance, PERRL Pupil Exam: NORMAL ACCOMODATION - ENT Exam ENT Exam: Mucous Membranes Moist - Neck Exam Neck Exam: Full ROM, Normal Inspection - Respiratory Exam Respiratory Exam: Wheezes, NORMAL BREATHING PATTERN - Cardiovascular Exam Cardiovascular Exam: REGULAR RHYTHM, +S1, +S2 - GI/Abdominal Exam GI & Abdominal Exam: Soft, Normal Bowel Sounds - Rectal Exam Rectal Exam: Deferred - Extremities Exam Extremities Exam: Full ROM, Normal Inspection - Neurological Exam Neurological Exam: Alert, Awake, CN II-XII Intact, Oriented x3 - Psychiatric Exam Psychiatric exam: Normal Affect, Normal Mood - Skin Skin Exam: Normal Color Assessment and Plan - Assessment and Plan (Free Text) Assessment: 77 year old Female with PMHx of HTN, HLD, CAD, CHF, COPD, CKD, NIDDM, gastritis, ? DJD, spinal stenosis was admitted with cough, sob, feverish, dysuria, frequency, supra pubic pain, increased bun/cr, base line s.cr 1.6-2 1. CAMPBELL on ckd-3 2. HTMN 3. DM 4. pneumonia c/w ivf 1/2 ns at 70 ml/hr check bmp in am c/w iv abx renal function is improving, s.cr is 2,4 today continue PT/OT
[2018-01-13] MEDS: Sodium Chloride 0.9% 1,000 ML IV SCH (16:58)
[2018-01-13] MEDS: Pravastatin Sodium 40 MG TAB PO SCH (21:18)
[2018-01-13] MEDS ORDERED: Albuterol-Ipratrop 3 mg / 0.5 (3 ml) UD INH STA (22:06)
[2018-01-14] MEDS: Oxycodone/Acetaminophen 5/325 mg Tab PO SCH ×2 (01:17→10:00)
[2018-01-14 05:10] LABS: HEMOGLOBIN 9.6 g/dL (12.0-16.0); MEAN CELL VOLUME 93.9 fl (81.0-99.0); MEAN CORPUSCULAR HEMOGLOBIN 29.9 pg (27.0-31.0); MEAN CORPUSCULAR HGB CONC 31.8 g/dL (33.0-37.0); RBC 3.2 Mil/uL (3.80-5.20); RED CELL DISTRIBUTION WIDTH 14.9 % (11.5-14.5); WHITE BLOOD COUNT 7.4 K/uL (4.8-10.8)
[2018-01-14 05:31] LABS: ALB/GLOB RATIO 0.9 (1.0-2.1); CALCIUM 8.2 mg/dL (8.4-10.2)
[2018-01-14] MEDS: Sodium Chloride 0.9% 1,000 ML IV SCH (05:42)
[2018-01-14] MEDS ORDERED: Albuterol-Ipratrop 3 mg / 0.5 (3 ml) UD INH PRN (06:24)
--- NOTE | 2018-01-14 09:05 | PN ---
DATE: 01/12/2018 SUBJECTIVE: The patient seen and examined. Interm events noted. The patient remains in progressive care unit, on telemetry monitoring. Complains of arthritis pain. No chest pain. No shortness of breath. The patient . PHYSICAL EXAMINATION: GENERAL: The patient is in no acute distress. VITAL SIGNS: Stable. HEART EXAM: S1, S2, normal, regular. LUNGS: Good bilateral air exchange. The patient has some occasional crepitation. ABDOMEN: Soft, nontender. EXTREMITIES: No calf swelling. No tenderness. No acute ischemia. The patient is . [employer]: Exam is essentially unchanged. DIAGNOSTIC DATA: Available diagnostic data reviewed. Telemetry monitoring does not show significant arrhythmia. ASSESSMENT AND PLAN: Overall, the patient is . Plan as ordered. Manpreet Austin MD
[2018-01-14] MEDS ORDERED: Azithromycin 500 MG in Sodium Chloride 0.9% 250 ML IVPB SCH (09:15)
[2018-01-14] MEDS: Cholecalciferol 1,000 INTLU TAB PO SCH (09:59)
[2018-01-14] MEDS: Pantoprazole 40 mg EC Tab PO SCH (09:59)
[2018-01-14] MEDS ORDERED: Oxycodone/Acetaminophen 5/325 mg Tab PO PRN (11:10)
--- NOTE | 2018-01-14 11:49 | PN ---
DATE: 01/14/2018 SUBJECTIVE: The patient seen and examined. Interim events noted. The patient remains in progressive care unit with telemetry monitoring, still complains of pain. Medication does help. No chest pain. No shortness of breath. Coughing improved. PHYSICAL EXAMINATION: GENERAL: The patient is in no acute distress. VITAL SIGNS: Stable. HEART: S1 and S2, normal and regular. LUNGS: Good bilateral air exchange. ABDOMEN: Soft and nontender. EXTREMITIES: No edema. No calf swelling. No tenderness. No acute ischemia. CENTRAL NERVOUS SYSTEM: Exam is essentially unchanged. DIAGNOSTIC DATA: Available diagnostic data reviewed. Telemetry monitoring does not reveal significant arrhythmia. ASSESSMENT AND PLAN: Overall, the patient is clinically stable and improving. Plan as ordered. Manpreet Austin MD
--- NOTE | 2018-01-14 13:36 | CP.PCM.PCO ---
Assessment/Plan - Assessment and Plan (Free Text) Assessment: Patient seen and examined Vital signs stable Patient complains of general body aches and cough, denies chest pain, shortness of breath, abdominal pain or vomiting. Getting IV abx for R sided patchy opacity c/w Pneumonia. Will need 7 more days of iv abx and physical therapy. Will recommend patient to TCU for continuation of treatment. Discussed with Dr Austin-alonso , agrees with plan.
[2018-01-14 16:09] VITALS: BP 122/70; PULSE 73; RESP 20; TEMP 97.6; O2SAT 96
--- NOTE | 2018-01-18 13:33 | PQF ---
PROVIDER RESPONSE TEXT: Bacterial community acquired pneumonia. REVIEWER QUERY TEXT: Pneumonia Specificity Pneumonia is documented in the Medical Record. Please specify the type of pneumonia and the causative organism (includes probable or suspected) Such as: Type: -- Aspiration pneumonia (please also specify the aspirate) - Please indicate if the aspiration is postprocedure -- Bacterial (please document suspected or probable organism) -- Bronchopneumonia (please document suspected or probable organism) -- Interstitial pneumonia -- Organizing pneumonia / BOOP -- Pneumonia with influenza, tanja flu, or H1N1 flu -- RSV -- Viral -- Other, please specify CXR: IMP: Persistent patchy opacity at right base. WBC: 14.8->12.1 H and P: Hx of HTN, HLD, CAD, CHF, COPD, CKD, NIDDM, gastritis--cough x 1 weeks:--subjective fever, N BNB vomiting last night -- Patient is admitted for pneumonia and elevated troponin. -c/w ceftriaxone and azithromycin, Duoneb q6hr, Methylprednisolone 40 mg q12 ,Resume home meds, IV fl uids The patient's Clinical Indicators include: XX Query created by: Charlotte Moreira on 01/11/2018 9:11 AM Electronically signed by: Manpreet Austin 01/18/2018 1:30 PM
--- NOTE | 2018-01-18 13:33 | PQF ---
PROVIDER RESPONSE TEXT: Chronic diastolic heart failure REVIEWER QUERY TEXT: Heart Failure Acuity and Type Hx. Congestive Heart Failure is documented in the Medical Record. Please document the type and acuity (includes probable or suspected) versus No CHF: hx. only and not a chronic condition Such as: Type: -- Combined systolic and diastolic (heart failure with reduced ejection fraction and diastolic) dysfu nction -- Diastolic (HFpEF) -- Systolic (HFrEF) -- Left heart failure -- Right heart failure -- Right heart failure due to left heart failure -- High output failure -- End stage heart failure -- Other, please specify Acuity: -- Acute -- Chronic -- Acute on chronic --Other CXR: Imp: Persistent patchy opacity at right base ProBNP: 3570 H and P: Hx. includes: CHF Respiratory exam: Exam: Rales (right lung field with expiratory wheezing. -absent: Accessory Muscle Use, Respiratory Distress --Lasix 40 mg po daily The patient's Clinical Indicators include: xx Query created by: Charlotte Moreira 01/11/2018 9:18 AM Electronically signed by: Manpreet Austin 01/18/2018 1:30 PM
--- NOTE | 2018-01-19 07:38 | PQF ---
PROVIDER RESPONSE TEXT: Chronic anemia REVIEWER QUERY TEXT: Medication Correlation for Diagnosis Your help is needed in capturing diagnoses for the corresponding medications ordered. Please clarify in the documentation diagnoses for the following medication: ferrous sulfate daily OR: Other explanation of clinical finding H/H;12.1/37.3->10.8/33.9 The patient's Clinical Indicators include: XX Query created by: Charlotte Moreira on 01/11/2018 9:21 AM Electronically signed by: Manpreet Austin 01/19/2018 7:36 AM
== END 2018-01-14 15:50 | DRG 178 ==
LOC: H.ER 09:26 → H.ERHOLD 12:46 → H.TEL 18:17
PROVIDERS: ADMIT Internal Medicine; ATTEND Internal Medicine
DX: J15.8 Pneumonia due to other specified bacteria (principal); J44.0 Chronic obstructive pulmonary disease with (acute) lower respiratory infection; N17.9 Acute kidney failure, unspecified; I13.0 Hypertensive heart and chronic kidney disease with heart failure and stage 1 through stage 4 chronic kidney disease, or unspecified chronic kidney disease; I50.32 Chronic diastolic (congestive) heart failure; N18.3 Chronic kidney disease, stage 3 (moderate); I48.91 Unspecified atrial fibrillation; I25.10 Atherosclerotic heart disease of native coronary artery without angina pectoris; G89.29 Other chronic pain; E11.22 Type 2 diabetes mellitus with diabetic chronic kidney disease; D64.89 Other specified anemias; E78.5 Hyperlipidemia, unspecified; E78.00 Pure hypercholesterolemia, unspecified; M19.90 Unspecified osteoarthritis, unspecified site; M81.0 Age-related osteoporosis without current pathological fracture; M48.00 Spinal stenosis, site unspecified; M54.5 Low back pain; F41.9 Anxiety disorder, unspecified; K29.70 Gastritis, unspecified, without bleeding; Z91.81 History of falling; Z95.5 Presence of coronary angioplasty implant and graft; Z79.82 Long term (current) use of aspirin; Z79.84 Long term (current) use of oral hypoglycemic drugs; Z79.899 Other long term (current) drug therapy; Z87.01 Personal history of pneumonia (recurrent)

== ENCOUNTER 2018-01-14 15:07 | Inpatient (IN) | payer OTHER, MEDICAID ==
[2018-01-14] MEDS ORDERED: Oxycodone/Acetaminophen 5/325 mg Tab PO PRN (16:24)
[2018-01-14] MEDS ORDERED: Azithromycin 500 MG in Sodium Chloride 0.9% 250 ML IVPB SCH (17:30)
--- NOTE | 2018-01-14 18:55 | CP.PCM.PN ---
Subjective - Date & Time of Evaluation Date of Evaluation: 01/14/18 Time of Evaluation: 18:55 - Subjective Subjective: pt is feeling slightly b jalyn, + cough and back pain no edema, no cp, no palpitation, no nausea, no vomitings s.cr is improving with iv hydration Objective - Vital Signs/Intake and Output Vital Signs (last 24 hours): Temp Pulse Resp BP Pulse Ox 98.1 F 74 20 135/77 94 L 01/14/18 16:49 01/14/18 16:49 01/14/18 16:49 01/14/18 16:49 01/14/18 16:49 - Medications Medications: Current Medications Acetaminophen (Tylenol 325mg Tab) 650 mg PO Q6 PRN PRN Reason: Pain, Mild (1-3) Albuterol/Ipratropium (Duoneb 3 Mg/0.5 Mg (3 Ml) Ud) 3 ml INH RQ6 PRN PRN Reason: Shortness of Breath Amlodipine Besylate (Norvasc) 10 mg PO DAILY [facility] Aspirin (Ecotrin) 81 mg PO DAILY [facility] Bisoprolol Fumarate (Zebeta) 5 mg PO DAILY [facility] Cholecalciferol (Vitamin D) 1,000 intlu PO DAILY [facility] Ferrous Gluconate (Fergon) 324 mg PO DAILY [facility] Furosemide (Lasix) 40 mg PO DAILY [facility] Glipizide (Glucotrol) 10 mg PO DAILY [facility] Azithromycin 500 mg/ Sodium (Chloride) 250 mls @ 250 mls/hr IVPB DAILY [facility] Ceftriaxone Sodium 1 gm/ (Sodium Chloride) 100 mls @ 100 mls/hr IVPB DAILY [facility] Isosorbide Mononitrate (Imdur Er) 30 mg PO DAILY [facility] Ondansetron HCl (Zofran Odt) 4 mg PO Q6 PRN PRN Reason: Nausea/Vomiting Oxycodone/Acetaminophen (Percocet 5/325 Mg Tab) 1 tab PO Q12 PRN PRN Reason: Pain, severe (8-10) Stop: 01/17/18 16:25 Pantoprazole Sodium (Protonix Ec Tab) 40 mg PO DAILY [facility] Pravastatin Sodium (Pravachol) 40 mg PO HS [facility] Sucralfate (Carafate Tab) 1 gm PO BID [facility] Last Admin: 01/14/18 17:22 Dose: 1 gm - Constitutional Appears: Well, No Acute Distress - Head Exam Head Exam: ATRAUMATIC, NORMAL INSPECTION, NORMOCEPHALIC - Eye Exam Eye Exam: EOMI, Normal appearance, PERRL Pupil Exam: NORMAL ACCOMODATION - ENT Exam ENT Exam: Mucous Membranes Moist - Neck Exam Neck Exam: Full ROM, Normal Inspection - Respiratory Exam Respiratory Exam: Wheezes, NORMAL BREATHING PATTERN - Rectal Exam Rectal Exam: Deferred - Extremities Exam Additional comments: no edema of legs - Neurological Exam Neurological Exam: Alert, Awake, CN II-XII Intact, Oriented x3 - Psychiatric Exam Psychiatric exam: Normal Affect, Normal Mood - Skin Skin Exam: Normal Color Assessment and Plan - Assessment and Plan (Free Text) Assessment: 77 year old Female with PMHx of HTN, HLD, CAD, CHF, COPD, CKD, NIDDM, gastritis, ? DJD, spinal stenosis was admitted with cough, sob, feverish, dysuria, frequency, supra pubic pain, increased bun/cr, base line s.cr 1.6-2 1. CAMPBELL on ckd-3 2. HTN 3. DM 4. pneumonia 5. COPD c/w ivf 1/2 ns at 70 ml/hr check bmp in am c/w iv abx renal function is improving, s.cr is 2.4 ---->2.2 today continue PT/OT
[2018-01-14] MEDS: Albuterol-Ipratrop 3 mg / 0.5 (3 ml) UD INH PRN (20:20)
[2018-01-14] MEDS: Pravastatin Sodium 40 MG TAB PO SCH (21:09)
--- NOTE | 2018-01-14 21:11 | CP.PCM.CON ---
History of Present Illness - History of Present Illness History of Present Illness: I was asked to see patient by Dr Austin. Patient evaluated 01/14/18 at 1700 Patient is a 77 year old female with HTN hypercholesterolemia DM CAD who presents for rehab. The patient was admitted to with dyspnea cough and NSTEMI. She was managed cosnervatively. Despite elevated troponin she did not have chest pain. She has baseline renal insufficiency. Review of Systems - Constitutional Constitutional: absent: As Per HPI, Anorexia, Chills, Daytime Sleepiness, Excessive Sweating, Fatigue, Fever, Frequent Falls, Headache, Increased Appetite, Lethargy, Malaise, Night Sweats, Snoring, Sleep Apnea, Weight Gain, Weight Loss, Weakness, Other - EENT Eyes: absent: As Per HPI, Blind Spots, Blurred Vision, Change in Vision, Decreased Night Vision, Diplopia, Discharge, Dry Eye, Exophthalmos, Floaters, Irritation, Itchy Eyes, Loss of Peripheral Vision, Pain, Photophobia, Requires Corrective Lenses, Sees Flashes, Spots in Vision, Tunnel Vision, Other Visual Disturbances, Loss of Vision, Other Ears: absent: As Per HPI, Decreased Hearing, Ear Discharge, Ear Pain, Tinnitus, Abnormal Hearing, Disequilibrium, Dizziness, Other Nose/Mouth/Throat: absent: As Per HPI, Epistaxis, Nasal Congestion, Nasal Discharge, Nasal Obstruction, Nasal Trauma, Nose Pain, Post Nasal Drip, Sinus Pain, Sinus Pressure, Bleeding Gums, Change in Voice, Dental Pain, Dry Mouth, Dysphagia, Halitosis, Hoarsness, Lip Swelling, Mouth Lesions, Mouth Pain, Odynophagia, Sore Throat, Throat Swelling, Tongue Swelling, Facial Pain, Neck Pain, Neck Mass, Other - Cardiovascular Cardiovascular: absent: As Per HPI, Acrocyanosis, Chest Pain, Chest Pain at Rest, Chest Pain with Activity, Claudication, Diaphoresis, Dyspnea, Dyspnea on Exertion, Edema, Irregular Heart Rhythm, Pain Radiating to Arm/Neck/Jaw, Leg Edema, Leg Ulcers, Lightheadedness, Orthopnea, Palpitations, Paroxysmal Nocturnal Dyspnea, Pedal Edema, Radiating Pain, Rapid Heart Rate, Slow Heart Rate, Syncope, Other - Respiratory Respiratory: absent: As Per HPI, Cough, Dyspnea, Hemoptysis, Dyspnea on Exertion, Wheezing, Snoring, Stridor, Pain on Inspiration, Chest Congestion, Excessive Mucous Production, Change in Mucous Color, Pain with Coughing, Other - Gastrointestinal Gastrointestinal: absent: As Per HPI, Abdominal Pain, Belching, Bloating, Change in Bowel Habits, Change in Stool Character, Coffee Ground Emesis, Constipation, Cramping, Diarrhea, Dyspepsia, Dysphagia, Early Satiety, Excessive Flatus, Fecal Incontinence, Heartburn, Hematemesis, Hematochezia, Loose Stools, Melena, Nausea, Odynophagia, Temesmus, Vomiting, Other - Genitourinary Genitourinary: absent: As Per HPI, Change in Urinary Stream, Difficulty Urinating, Dysuria, Flank Pain, Hematuria, Pyuria, Nocturia, Urinary Incontinence, Urinary Frequency, Urinary Hesitance, Urinary Urgency, Voiding Freq/Small Amts, Freq UTI, Hx Renal/Bladder Calculi, Hx /Renal Surgery, Bladder Distension, Other - Musculoskeletal Musculoskeletal: absent: As Per HPI, Abnormal Gait, Arthralgias, Atrophy, Back Pain, Deformity, Joint Swelling, Limited Range of Motion, Loss of Height, Muscle Cramps, Muscle Weakness, Myalgias, Neck Pain, Numbness, Radiating Pain into Limb, Stiffness, Tingling, Other - Integumentary Integumentary: absent: As Per HPI, Acne, Alopecia, Bleeding Lesions, Change in Hair, Change in Nails, Change in Pigmentation, Changing Lesions, Dry Skin, Erythema, Furuncle, Hirsutism, Lesions, New Lesions, Non-Healing Lesions, Photosensitivity, Pruritus, Rash, Skin Pain, Skin Ulcer, Sores, Striae, Swelling, Unusual Bruising, Wounds, Jaundice, Other - Neurological Neurological: absent: As Per HPI, Abnormal Gait, Abnormal Hearing, Abnormal Movements, Abnormal Speech, Behavioral Changes, Burning Sensations, Confusion, Convulsions, Disequilibrium, Dizziness, Numbness, Focal Weakness, Frequent Falls, Headaches, Lack of Coordination, Loss of Vision, Memory Loss, Paresthesias, Radicular Pain, Restless Legs, Sensory Deficit, Syncope, Tingling, Tremor, Vertigo, Weakness, Other Visual Disturbances, Other - Psychiatric Psychiatric: absent: As Per HPI, Abnormal Sleep Pattern, Anhedonia, Anxiety, Auditory Hallucinations, Behavioral Changes, Change in Appetite, Change in Libido, Confusion, Depression, Difficulty Concentrating, Hallucinations, Homicidal Ideation, Hopelessness, Irritability, Memory Loss, Mood Swings, Panic Attacks, Paranoia, Suicidal Ideation, Visual Hallucinations, Tactile Hallucinations, Other - Endocrine Endocrine: absent: As Per HPI, Change in Body Appearance, Change in Libido, Cold Intolorance, Deepening of Voice, Excessive Sweating, Fatigue, Flushing, Heat Intolorance, Increase in Ring/Shoe/Hat Size, Palpitations, Polydipsia, Polyphagia, Polyuria, Other - Hematologic/Lymphatic Hematologic: absent: As Per HPI, Easy Bleeding, Easy Bruising, Lymphadenopathy, Other Past Patient History - Past Medical History & Family History Past Medical History?: Yes - Past Social History Smoking Status: Never Smoked - CARDIAC Hx Cardiac Disorders: Yes - PULMONARY Hx Respiratory Disorders: Yes - NEUROLOGICAL Hx Neurological Disorder: No - HEENT Hx HEENT Problems: No - RENAL Hx Chronic Kidney Disease: Yes - ENDOCRINE/METABOLIC Hx Endocrine Disorders: Yes - HEMATOLOGICAL/ONCOLOGICAL Hx AIDS: No Hx Human Immunodeficiency Virus (HIV): No - INTEGUMENTARY Hx Dermatological Problems: No - MUSCULOSKELETAL/RHEUMATOLOGICAL Hx Falls: Yes - GASTROINTESTINAL Hx Gall Bladder Disease: Yes Hx Gastritis: Yes - GENITOURINARY/GYNECOLOGICAL Hx Genitourinary Disorders: No - PSYCHIATRIC Hx Anxiety: Yes Hx Depression: Yes Hx Substance Use: No - SURGICAL HISTORY Hx Cholecystectomy: Yes Hx Coronary Stent: Yes - ANESTHESIA Hx Anesthesia: Yes Hx Anesthesia Reactions: No Hx Malignant Hyperthermia: No Meds Allergies/Adverse Reactions: Allergies Allergy/AdvReac Type Severity Reaction Status Date / Time alprazolam [From Xanax] Allergy SWELLING Verified 01/14/18 15:19 hydromorphone HCl Allergy RASH Verified 01/14/18 15:19 [From Dilaudid] zolpidem tartrate Allergy RASH Verified 01/14/18 15:19 [From Ambien] - Medications Medications: Current Medications Acetaminophen (Tylenol 325mg Tab) 650 mg PO Q6 PRN PRN Reason: Pain, Mild (1-3) Albuterol/Ipratropium (Duoneb 3 Mg/0.5 Mg (3 Ml) Ud) 3 ml INH RQ6 PRN PRN Reason: Shortness of Breath Last Admin: 01/14/18 20:20 Dose: 3 ml Amlodipine Besylate (Norvasc) 10 mg PO DAILY [facility] Aspirin (Ecotrin) 81 mg PO DAILY [facility] Bisoprolol Fumarate (Zebeta) 5 mg PO DAILY [facility] Cholecalciferol (Vitamin D) 1,000 intlu PO DAILY [facility] Ferrous Gluconate (Fergon) 324 mg PO DAILY [facility] Furosemide (Lasix) 40 mg PO DAILY [facility] Glipizide (Glucotrol) 10 mg PO DAILY [facility] Azithromycin 500 mg/ Sodium (Chloride) 250 mls @ 250 mls/hr IVPB DAILY [facility] Last Admin: 01/14/18 17:30 Dose: 250 mls/hr Ceftriaxone Sodium 1 gm/ (Sodium Chloride) 100 mls @ 100 mls/hr IVPB DAILY [facility] Isosorbide Mononitrate (Imdur Er) 30 mg PO DAILY [facility] Ondansetron HCl (Zofran Odt) 4 mg PO Q6 PRN PRN Reason: Nausea/Vomiting Oxycodone/Acetaminophen (Percocet 5/325 Mg Tab) 1 tab PO Q12 PRN PRN Reason: Pain, severe (8-10) Stop: 01/17/18 16:25 Pantoprazole Sodium (Protonix Ec Tab) 40 mg PO DAILY [facility] Pravastatin Sodium (Pravachol) 40 mg PO HS [facility] Promethazine HCl/Dextromethorphan (Phenergan Dm Syrup) 5 ml PO Q8 PRN PRN Reason: Cough Sucralfate (Carafate Tab) 1 gm PO BID [facility] Last Admin: 01/14/18 17:22 Dose: 1 gm Physical Exam - Constitutional Appears: Non-toxic - Head Exam Head Exam: NORMAL INSPECTION - Eye Exam Eye Exam: Normal appearance - ENT Exam ENT Exam: Mucous Membranes Moist - Neck Exam Neck exam: Positive for: Full Rom - Respiratory Exam Respiratory Exam: NORMAL BREATHING PATTERN - Cardiovascular Exam Cardiovascular Exam: REGULAR RHYTHM - GI/Abdominal Exam GI & Abdominal Exam: Normal Bowel Sounds - Rectal Exam Rectal Exam: Deferred - Extremities Exam Extremities exam: Positive for: normal inspection. Negative for: pedal edema - Back Exam Back exam: NORMAL INSPECTION - Neurological Exam Neurological exam: Alert, Oriented x3 - Psychiatric Exam Psychiatric exam: Normal Affect - Skin Skin Exam: Normal Color Results - Vital Signs Recent Vital Signs: Last Vital Signs Temp 98.1 F 01/14/18 20:13 Pulse 78 01/14/18 20:13 Resp 20 01/14/18 20:13 BP 102/61 01/14/18 20:13 Pulse Ox 95 01/14/18 20:13 - Labs Labs: Laboratory Results - last 24 hr 01/14/18 01/14/18 17:45 20:55 POC Glucose (mg/dL) 151 H 155 H - EKG Data EKG Interpreted by: Myself EKG shows normal: Sinus rhythm Assessment & Plan (1) HTN (hypertension) Assessment and Plan: continue blood pressure control Status: Acute (2) CAD (coronary artery disease) Assessment and Plan: no current angina or heart failure Status: Acute (3) Diabetes mellitus Assessment and Plan: glucose control Status: Chronic (4) Hypertension Status: Chronic Priority: Medium
[2018-01-14] MEDS: Promethazine DM 6.25 mg-15 mg/5 ml Syrup PO PRN (23:31)
[2018-01-15] MEDS: Albuterol-Ipratrop 3 mg / 0.5 (3 ml) UD INH PRN ×3 (03:33→19:29)
--- NOTE | 2018-01-15 08:29 | CP.PCM.HP ---
<TrentGeetha - Last Filed: 01/15/18 14:03> History of Present Illness - History of Present Illness History of Present Illness: 77 year old Female with PMHx of HTN, HLD, CAD, CHF, COPD, CKD, NIDDM, gastritis, amitted previously with pneumonia, now admitted to TCU to complete 7 more days of antibiotics. Patient reports she has chronic lower back pain. otherwise she denies chest pain, dyspnea, headache, dizziness or focal weakness. Patient is admitted for pneumonia. Afebrile ROS: all 12 systems reviewed and negative except as mentioned in HPI PMHx: HTN, HLD, CAD, CHF, COPD, CKD, NIDDM, gastritis SurgHx: cholesectomy,tonsillectomy, hysterectomy, x 2 Social Hx: denies ETOH, and illicit drug use; hx of smoking in the past Allergies: xanex and hydromorphone- rash and swelling Hx obtained from patient and chart review Present on Admission - Present on Admission Any Indicators Present on Admission: No Past Patient History - Past Medical History & Family History Past Medical History?: Yes - Past Social History Smoking Status: Never Smoked - CARDIAC Hx Cardiac Disorders: Yes - PULMONARY Hx Respiratory Disorders: Yes - NEUROLOGICAL Hx Neurological Disorder: No - HEENT Hx HEENT Problems: No - RENAL Hx Chronic Kidney Disease: Yes - ENDOCRINE/METABOLIC Hx Endocrine Disorders: Yes - HEMATOLOGICAL/ONCOLOGICAL Hx AIDS: No Hx Human Immunodeficiency Virus (HIV): No - INTEGUMENTARY Hx Dermatological Problems: No - MUSCULOSKELETAL/RHEUMATOLOGICAL Hx Falls: Yes - GASTROINTESTINAL Hx Gall Bladder Disease: Yes Hx Gastritis: Yes - GENITOURINARY/GYNECOLOGICAL Hx Genitourinary Disorders: No - PSYCHIATRIC Hx Anxiety: Yes Hx Depression: Yes Hx Substance Use: No - SURGICAL HISTORY Hx Cholecystectomy: Yes Hx Coronary Stent: Yes - ANESTHESIA Hx Anesthesia: Yes Hx Anesthesia Reactions: No Hx Malignant Hyperthermia: No Meds Allergies/Adverse Reactions: Allergies Allergy/AdvReac Type Severity Reaction Status Date / Time alprazolam [From Xanax] Allergy SWELLING Verified 01/14/18 15:19 hydromorphone HCl Allergy RASH Verified 01/14/18 15:19 [From Dilaudid] zolpidem tartrate Allergy RASH Verified 01/14/18 15:19 [From Ambien] Physical Exam - Constitutional Appears: No Acute Distress - Head Exam Head Exam: NORMAL INSPECTION - Respiratory Exam Respiratory Exam: Decreased Breath Sounds, Prolonged Expiratory Phase, Rales - Cardiovascular Exam Cardiovascular Exam: REGULAR RHYTHM, +S1, +S2 - GI/Abdominal Exam GI & Abdominal Exam: Normal Bowel Sounds, Soft. absent: Distended, Tenderness - Extremities Exam Extremities exam: Negative for: calf tenderness, pedal edema - Neurological Exam Neurological exam: Alert, Oriented x3 - Skin Skin Exam: Dry, Warm Results - Vital Signs Recent Vital Signs: Last Vital Signs Temp 98.1 F 01/14/18 20:13 Pulse 78 01/14/18 20:13 Resp 20 01/14/18 20:13 BP 102/61 01/14/18 20:13 Pulse Ox 95 01/14/18 20:13 - Labs Labs: Laboratory Results - last 24 hr 01/14/18 01/14/18 17:45 20:55 POC Glucose (mg/dL) 151 H 155 H Assessment & Plan - Assessment and Plan (Free Text) Assessment: 77 yo F patient previously admitted to the floor with pnuemonia now transferred to TCU to complete IV antibiotics course. Plan: Cardiology consult: Dr Stout, consult appreciated. Troponin trending down. Patient does not have CP Nephrology consult for CAMPBELL on CKD c/w ceftriaxone and azithromycin Duoneb q6hr c/w home medications c/w IV fluids AM labs rest of the plan as ordered Plan discussed with Dr. Austin <Manpreet Austin - Last Filed: 01/16/18 03:17> Results - Vital Signs Recent Vital Signs: Last Vital Signs Temp 97.7 F 01/15/18 19:59 Pulse 88 01/15/18 19:59 Resp 20 01/15/18 19:59 BP 119/67 01/15/18 19:59 Pulse Ox 96 01/15/18 19:59 - Labs Labs: Laboratory Results - last 24 hr 01/15/18 01/15/18 11:47 15:42 POC Glucose (mg/dL) 142 H 153 H Assessment & Plan - Assessment and Plan (Free Text) Assessment: Patient was personally seen and examined by me in rounds with residents. Available labs and diagnostic data reviewed. Case, Patient's condition and management plan discussed with residents in rounds. Agree with resident's progress note. Plan: As ordered.
[2018-01-15] MEDS ORDERED: cefTRIAXone IV 1 gm in Dextros 50 ML BAG IVPB SCH (09:00)
[2018-01-15] MEDS: Cholecalciferol 1,000 INTLU TAB PO SCH (09:35)
[2018-01-15] MEDS: Pantoprazole 40 mg EC Tab PO SCH (09:40)
[2018-01-15] MEDS: Azithromycin 500 MG in Sodium Chloride 0.9% 250 ML IVPB SCH ×2 (17:02→18:30)
[2018-01-15] MEDS: Promethazine DM 6.25 mg-15 mg/5 ml Syrup PO PRN (21:14)
[2018-01-15] MEDS: Pravastatin Sodium 40 MG TAB PO SCH (21:14)
[2018-01-15] MEDS: Oxycodone/Acetaminophen 5/325 mg Tab PO PRN (21:17)
[2018-01-16] MEDS: Promethazine DM 6.25 mg-15 mg/5 ml Syrup PO PRN (06:15)
[2018-01-16] MEDS: Albuterol-Ipratrop 3 mg / 0.5 (3 ml) UD INH PRN ×2 (06:19→20:35)
[2018-01-16 06:27] LABS: BASO # 0.1 K/uL (0.0-0.2); BASO % 1.2 % (0.0-2.0); EOS # 0.3 K/uL (0.0-0.7); EOS % 3.8 % (0.0-4.0); HEMOGLOBIN 10.2 g/dL (12.0-16.0); LYMPH # 0.5 K/uL (1.0-4.3); LYMPH % 5.2 % (20.0-40.0); MEAN CELL VOLUME 91.7 fl (81.0-99.0); MEAN CORPUSCULAR HEMOGLOBIN 30.6 pg (27.0-31.0); MEAN CORPUSCULAR HGB CONC 33.3 g/dL (33.0-37.0); MEAN PLATELET VOLUME 7.7 fl (7.2-11.7); MONO # 0.7 K/uL (0.0-0.8); NEUT # 7.2 K/uL (1.8-7.0); NEUT % 81.8 % (50.0-75.0); PLATELET COUNT 302 K/uL (130-400); RBC 3.32 Mil/uL (3.80-5.20); RED CELL DISTRIBUTION WIDTH 14.7 % (11.5-14.5); WHITE BLOOD COUNT 8.8 K/uL (4.8-10.8)
[2018-01-16 06:40] LABS: ALBUMIN 3.6 g/dL (3.5-5.0); CALCIUM 8.9 mg/dL (8.4-10.2)
[2018-01-16] MEDS ORDERED: Albuterol-Ipratrop 3 mg / 0.5 (3 ml) UD INH STA (08:07)
--- NOTE | 2018-01-16 08:08 | CP.PCM.PN ---
Subjective - Date & Time of Evaluation Date of Evaluation: 01/16/18 Time of Evaluation: 08:08 - Subjective Subjective: Patient seen and examined today at bedside with Dr Austin patient reports feeling better though mild sob and cough, no acute overnight events Afebrile, VSS. denies chest pain, difficulty breathing, dizziness or headache. Objective - Vital Signs/Intake and Output Vital Signs (last 24 hours): Temp Pulse Resp BP Pulse Ox 97.7 F 88 20 119/67 96 01/15/18 19:59 01/15/18 19:59 01/15/18 19:59 01/15/18 19:59 01/15/18 19:59 - Medications Medications: Current Medications Acetaminophen (Tylenol 325mg Tab) 650 mg PO Q6 PRN PRN Reason: Pain, Mild (1-3) Albuterol/Ipratropium (Duoneb 3 Mg/0.5 Mg (3 Ml) Ud) 3 ml INH RQ6 PRN PRN Reason: Shortness of Breath Last Admin: 01/16/18 06:19 Dose: 3 ml Albuterol/Ipratropium (Duoneb 3 Mg/0.5 Mg (3 Ml) Ud) 3 ml INH STAT STA Stop: 01/16/18 08:08 Amlodipine Besylate (Norvasc) 10 mg PO DAILY [facility] Last Admin: 01/15/18 09:35 Dose: 10 mg Aspirin (Ecotrin) 81 mg PO DAILY [facility] Last Admin: 01/15/18 09:34 Dose: 81 mg Bisoprolol Fumarate (Zebeta) 5 mg PO DAILY [facility] Last Admin: 01/15/18 09:36 Dose: 5 mg Cholecalciferol (Vitamin D) 1,000 intlu PO DAILY [facility] Last Admin: 01/15/18 09:35 Dose: 1,000 intlu Ferrous Gluconate (Fergon) 324 mg PO DAILY [facility] Last Admin: 01/15/18 09:34 Dose: 324 mg Furosemide (Lasix) 40 mg PO DAILY [facility] Last Admin: 01/15/18 09:35 Dose: 40 mg Glipizide (Glucotrol) 10 mg PO DAILY [facility] Last Admin: 01/15/18 09:34 Dose: 10 mg Ceftriaxone Sodium 1 gm/ (Sodium Chloride) 100 mls @ 100 mls/hr IVPB DAILY [facility] Last Admin: 01/15/18 08:25 Dose: 100 mls/hr Azithromycin 500 mg/ Sodium (Chloride) 250 mls @ 250 mls/hr IVPB DAILY@1700 [facility] Last Admin: 01/15/18 18:30 Dose: 250 mls/hr Isosorbide Mononitrate (Imdur Er) 30 mg PO DAILY [facility] Last Admin: 01/15/18 09:34 Dose: 30 mg Ondansetron HCl (Zofran Odt) 4 mg PO Q6 PRN PRN Reason: Nausea/Vomiting Oxycodone/Acetaminophen (Percocet 5/325 Mg Tab) 1 tab PO Q8 PRN PRN Reason: Pain, moderate (4-7) Stop: 01/19/18 01:01 Last Admin: 01/15/18 21:17 Dose: 1 tab Pantoprazole Sodium (Protonix Ec Tab) 40 mg PO DAILY [facility] Last Admin: 01/15/18 09:40 Dose: 40 mg Pravastatin Sodium (Pravachol) 40 mg PO HS [facility] Last Admin: 01/15/18 21:14 Dose: 40 mg Promethazine HCl/Dextromethorphan (Phenergan Dm Syrup) 5 ml PO Q8 PRN PRN Reason: Cough Last Admin: 01/16/18 06:15 Dose: 5 ml Sucralfate (Carafate Tab) 1 gm PO BID [facility] Last Admin: 01/15/18 17:01 Dose: 1 gm - Labs Labs: 01/16/18 05:30 01/16/18 05:30 - Constitutional Appears: No Acute Distress - Head Exam Head Exam: NORMAL INSPECTION - Respiratory Exam Respiratory Exam: Decreased Breath Sounds, Prolonged Expiratory Phase, Wheezes. absent: Chest Wall Tenderness - Cardiovascular Exam Cardiovascular Exam: REGULAR RHYTHM, +S1, +S2 - GI/Abdominal Exam GI & Abdominal Exam: Soft. absent: Distended, Tenderness - Extremities Exam Extremities Exam: absent: Calf Tenderness, Pedal Edema - Neurological Exam Neurological Exam: Alert, Awake, Oriented x3 - Skin Skin Exam: Dry, Warm Assessment and Plan - Assessment and Plan (Free Text) Assessment: 77 yo F patient previously admitted to the floor with pneumonia now admitted to TCU to complete IV antibiotics course. Plan: - Cardiology consult: Dr Stout, consult appreciated. - Troponin trending down. Patient does not have CP - Nephrology consult for CAMPBELL on CKD - c/w ceftriaxone and azithromycin - Duoneb q6hr - c/w home medications - c/w IV fluids - AM labs - rest of the plan as ordered
[2018-01-16] MEDS: Cholecalciferol 1,000 INTLU TAB PO SCH (08:34)
[2018-01-16] MEDS: Oxycodone/Acetaminophen 5/325 mg Tab PO PRN ×2 (08:46→20:02)
[2018-01-16] MEDS: Pantoprazole 40 mg EC Tab PO SCH (08:46)
[2018-01-16 10:09] LABS: EOSINOPHIL 3 % (0-7); LYMPHOCYTE 7 % (20-50); MONOCYTE 4 % (0-10); NEUTROPHIL 86 % (42-75); TOTAL CELLS COUNTED 100
[2018-01-16 10:10] LABS: PLATELET ESTIMATE NORMAL (NORMAL)
[2018-01-16] MEDS: Azithromycin 500 MG in Sodium Chloride 0.9% 250 ML IVPB SCH (17:05)
--- NOTE | 2018-01-16 18:51 | CP.PCM.PN ---
Subjective - Date & Time of Evaluation Date of Evaluation: 01/16/18 Time of Evaluation: 18:00 - Subjective Subjective: patient has cough. she denies chest pain Objective - Vital Signs/Intake and Output Vital Signs (last 24 hours): Temp Pulse Resp BP Pulse Ox 97.0 F L 82 20 130/81 94 L 01/16/18 16:56 01/16/18 16:56 01/16/18 16:56 01/16/18 16:56 01/16/18 16:56 - Medications Medications: Current Medications Acetaminophen (Tylenol 325mg Tab) 650 mg PO Q6 PRN PRN Reason: Pain, Mild (1-3) Albuterol/Ipratropium (Duoneb 3 Mg/0.5 Mg (3 Ml) Ud) 3 ml INH RQ6 PRN PRN Reason: Shortness of Breath Last Admin: 01/16/18 06:19 Dose: 3 ml Amlodipine Besylate (Norvasc) 10 mg PO DAILY [facility] Last Admin: 01/16/18 08:35 Dose: 10 mg Aspirin (Ecotrin) 81 mg PO DAILY [facility] Last Admin: 01/16/18 08:35 Dose: 81 mg Bisoprolol Fumarate (Zebeta) 5 mg PO DAILY [facility] Last Admin: 01/16/18 08:34 Dose: 5 mg Cholecalciferol (Vitamin D) 1,000 intlu PO DAILY [facility] Last Admin: 01/16/18 08:34 Dose: 1,000 intlu Ferrous Gluconate (Fergon) 324 mg PO DAILY [facility] Last Admin: 01/16/18 08:36 Dose: 324 mg Furosemide (Lasix) 40 mg PO DAILY [facility] Last Admin: 01/16/18 08:36 Dose: 40 mg Glipizide (Glucotrol) 10 mg PO DAILY [facility] Last Admin: 01/16/18 08:33 Dose: 10 mg Ceftriaxone Sodium 1 gm/ (Sodium Chloride) 100 mls @ 100 mls/hr IVPB DAILY [facility] Last Admin: 01/16/18 08:31 Dose: 100 mls/hr Azithromycin 500 mg/ Sodium (Chloride) 250 mls @ 250 mls/hr IVPB DAILY@1700 [facility] Last Admin: 01/16/18 17:05 Dose: 250 mls/hr Isosorbide Mononitrate (Imdur Er) 30 mg PO DAILY [facility] Last Admin: 01/16/18 08:36 Dose: 30 mg Ondansetron HCl (Zofran Odt) 4 mg PO Q6 PRN PRN Reason: Nausea/Vomiting Oxycodone/Acetaminophen (Percocet 5/325 Mg Tab) 1 tab PO Q8 PRN PRN Reason: Pain, moderate (4-7) Stop: 01/19/18 01:01 Last Admin: 01/16/18 08:46 Dose: 1 tab Pantoprazole Sodium (Protonix Ec Tab) 40 mg PO DAILY [facility] Last Admin: 01/16/18 08:46 Dose: 40 mg Pravastatin Sodium (Pravachol) 40 mg PO HS [facility] Last Admin: 01/15/18 21:14 Dose: 40 mg Promethazine HCl/Dextromethorphan (Phenergan Dm Syrup) 5 ml PO Q8 PRN PRN Reason: Cough Last Admin: 01/16/18 06:15 Dose: 5 ml Sucralfate (Carafate Tab) 1 gm PO BID [facility] Last Admin: 01/16/18 17:04 Dose: 1 gm - Labs Labs: 01/16/18 05:30 01/16/18 05:30 - Constitutional Appears: Non-toxic - Head Exam Head Exam: NORMAL INSPECTION - Eye Exam Eye Exam: Normal appearance - ENT Exam ENT Exam: Mucous Membranes Moist - Neck Exam Neck Exam: Full ROM - Respiratory Exam Respiratory Exam: Decreased Breath Sounds - Cardiovascular Exam Cardiovascular Exam: REGULAR RHYTHM - GI/Abdominal Exam GI & Abdominal Exam: Normal Bowel Sounds - Rectal Exam Rectal Exam: Deferred - Extremities Exam Extremities Exam: absent: Pedal Edema - Back Exam Back Exam: NORMAL INSPECTION - Neurological Exam Neurological Exam: Alert - Psychiatric Exam Psychiatric exam: Normal Affect - Skin Skin Exam: Normal Color Assessment and Plan (1) HTN (hypertension) Assessment & Plan: blood pressure is controlled Status: Acute (2) CAD (coronary artery disease) Assessment & Plan: no current angina Status: Acute (3) Diabetes mellitus Assessment & Plan: blood glucose control Status: Chronic
[2018-01-17] MEDS: Pravastatin Sodium 40 MG TAB PO SCH ×2 (00:34→21:35)
[2018-01-17] MEDS: Oxycodone/Acetaminophen 5/325 mg Tab PO PRN ×2 (03:30→14:21)
[2018-01-17] MEDS: Promethazine DM 6.25 mg-15 mg/5 ml Syrup PO PRN ×2 (03:34→16:34)
[2018-01-17] MEDS: Albuterol-Ipratrop 3 mg / 0.5 (3 ml) UD INH PRN (03:36)
[2018-01-17] MEDS: Cholecalciferol 1,000 INTLU TAB PO SCH (08:52)
[2018-01-17] MEDS: Pantoprazole 40 mg EC Tab PO SCH (08:59)
[2018-01-17] MEDS: Albuterol-Ipratrop 3 mg / 0.5 (3 ml) UD INH SCH ×2 (15:45→19:46)
--- NOTE | 2018-01-17 16:07 | PN ---
DATE: 01/17/2018 SUBJECTIVE: The patient is seen and examined. Interim events noted. The patient still complains of cough. Pain is also present, medication . PHYSICAL EXAMINATION: GENERAL: The patient is in no acute distress. VITAL SIGNS: Stable. HEART: S1 and S2, normal and regular. LUNGS: Good bilateral air exchange. ABDOMEN: Soft and nontender. EXTREMITIES: No edema, no calf swelling, no tenderness, and no acute ischemia. CENTRAL NERVOUS SYSTEM: Exam is essentially unchanged. DIAGNOSTIC DATA: Available diagnostic data reviewed. ASSESSMENT AND PLAN: Overall, the patient's general medical condition is stable. Plan as ordered. Manpreet Austin MD
[2018-01-17] MEDS: Azithromycin 500 MG in Sodium Chloride 0.9% 250 ML IVPB SCH (16:34)
[2018-01-18] MEDS: Albuterol-Ipratrop 3 mg / 0.5 (3 ml) UD INH SCH ×6 (00:57→19:32)
[2018-01-18] MEDS: Promethazine DM 6.25 mg-15 mg/5 ml Syrup PO PRN ×3 (02:32→18:35)
[2018-01-18] MEDS: Albuterol-Ipratrop 3 mg / 0.5 (3 ml) UD INH PRN ×2 (03:14→04:36)
[2018-01-18] MEDS ORDERED: methylPREDNISolone 60 MG in Sodium Chloride 0.9% 50 ML IVPB ONE (04:26)
[2018-01-18] MEDS ORDERED: MethylPREDNISolone 40 mg Vial IVP ONE (04:30)
--- NOTE | 2018-01-18 04:42 | PCM.RRT ---
CERTIFIED MEDICAL AIDE Nurse Assessment - Situation CERTIFIED MEDICAL AIDE Responder Arrival Time: 04:15 Location: TCU Room Number: 707-2 CERTIFIED MEDICAL AIDE Reason for Call: Respiratory Distress CERTIFIED MEDICAL AIDE Called By: RN - IV IV Inserted during CERTIFIED MEDICAL AIDE?: No - Respiratory Oxygen Delivery Method: Mask Received Nebulizer Treatments: Yes (Duoneb) Was the Patient Ventilated with Bag/Mask 100% O2?: No Secretions Suctioned?: No Was the Patient Intubated?: No Was the Patient Placed on a Ventilator?: No - Ventilator Settings FIO2 (% Oxygen): 2 - Medication Medications Administered During CERTIFIED MEDICAL AIDE: DUONEB - Diagnostic Test Ordered EKG: No Chest X-Ray: No CT Scan: No CPR started during CERTIFIED MEDICAL AIDE?: No - Vital Signs Vital Signs: 144/70; HR: 88; O2Sat: 89% - Time CERTIFIED MEDICAL AIDE Ended Time CERTIFIED MEDICAL AIDE Ended: 04:33 - Vital Signs at end of CERTIFIED MEDICAL AIDE Vital Signs at end of CERTIFIED MEDICAL AIDE: 119/80; HR:87; SpO2: 90% - Recommendations CERTIFIED MEDICAL AIDE Level of Care Recommendations: Remain in current setting I.Reason for CERTIFIED MEDICAL AIDE - A) Acute Change in Patient: (Select all that apply): Acute change in SpO2 less (desaturated to 80's SpO2.) Subjective: 77 year old female with history of HTN, HLD, CAD, CHF, COPD, CKD, NIDDM, gastritis, amitted previously with pneumonia, now admitted to TCU - CERTIFIED MEDICAL AIDE called because of respiratory distress. Patient found to be wheezing, desaturating SpO2 80% and unable to speak due to shortness of breath. CERTIFIED MEDICAL AIDE intervention: Patient was given Duoneb x1 stat. - Medications added: Solumedrol 60mg IVP Q8H ATC; Tessalon pearls; Advair; singulair; spiriva; and Daliresp. - Antibiotics- Azithromycin and Rocephin were discontinued. 4:33am: O2 Saturation 88% with Duoneb treatment. A/P : 77 year old female with history of HTN, HLD, CAD, CHF, COPD, CKD, NIDDM, gastritis, amitted previously with pneumonia, now admitted to TCU - CERTIFIED MEDICAL AIDE called because of respiratory distress secondary to COPD exacerbation. Patient will remain in TCU and will be started on Solumedrol 60mg Q8H ATC, Tessalon pearls, Advair, Daliresp and spiriva. CERTIFIED MEDICAL AIDE Leader: Dr. Higgins CERTIFIED MEDICAL AIDE residents: Dr. Hill PGY 3; Dr. Matthew PGY1. - Respiratory Oxygen Delivery Method: Face Mask @% - Constitutional Appears: In Acute Distress Additional Comments: Patient chronically ill appearing. Unable to speak full sentences due to shortness of breath. Patient seems anxious. - Respiratory Exam Respiratory Exam: Wheezes (global wheezing ), Respiratory Distress - Cardiovascular Exam Cardiovascular Exam: +S1, +S2 - Neurological Exam Neurological Exam: Awake
[2018-01-18] MEDS: Oxycodone/Acetaminophen 5/325 mg Tab PO PRN ×2 (04:48→21:12)
[2018-01-18] MEDS ORDERED: methylPREDNISolone 60 MG in Sodium Chloride 0.9% 50 ML IVPB SCH (09:00)
--- NOTE | 2018-01-18 09:06 | CP.PCM.PN ---
Subjective - Date & Time of Evaluation Date of Evaluation: 01/18/18 Time of Evaluation: 09:06 - Subjective Subjective: Patient seen and examined today at bedside with Dr Austin, MINE EXPLORATION ENGINEER called last night due to desat to 80% and wheezing Today patient looks tired, reports breathing better though mild dyspnea noted, no accessory muscle use. Afebrile, VSS. denies chest pain, dizziness or headache. O2 sat 95% on NC at 2 lpm Objective - Vital Signs/Intake and Output Vital Signs (last 24 hours): Temp Pulse Resp BP Pulse Ox 97.3 F L 86 18 118/56 L 95 01/18/18 08:26 01/18/18 08:26 01/18/18 08:26 01/18/18 08:26 01/18/18 08:26 - Medications Medications: Current Medications Acetaminophen (Tylenol 325mg Tab) 650 mg PO Q6 PRN PRN Reason: Pain, Mild (1-3) Albuterol/Ipratropium (Duoneb 3 Mg/0.5 Mg (3 Ml) Ud) 3 ml INH RQ4 [facility] Last Admin: 01/18/18 07:27 Dose: 3 ml Albuterol/Ipratropium (Duoneb 3 Mg/0.5 Mg (3 Ml) Ud) 3 ml INH RQ6 PRN PRN Reason: Shortness of Breath Last Admin: 01/18/18 04:36 Dose: 3 ml Amlodipine Besylate (Norvasc) 10 mg PO DAILY [facility] Last Admin: 01/17/18 08:52 Dose: 10 mg Aspirin (Ecotrin) 81 mg PO DAILY [facility] Last Admin: 01/17/18 08:54 Dose: 81 mg Benzonatate (Tessalon Perles) 200 mg PO Q8 PRN PRN Reason: Cough Bisoprolol Fumarate (Zebeta) 5 mg PO DAILY [facility] Last Admin: 01/17/18 08:52 Dose: 5 mg Cholecalciferol (Vitamin D) 1,000 intlu PO DAILY [facility] Last Admin: 01/17/18 08:52 Dose: 1,000 intlu Ferrous Gluconate (Fergon) 324 mg PO DAILY [facility] Last Admin: 01/17/18 08:52 Dose: 324 mg Furosemide (Lasix) 40 mg PO DAILY [facility] Last Admin: 01/17/18 08:53 Dose: 40 mg Glipizide (Glucotrol) 10 mg PO DAILY [facility] Last Admin: 01/17/18 08:53 Dose: 10 mg Ceftriaxone Sodium 1 gm/ (Sodium Chloride) 100 mls @ 100 mls/hr IVPB DAILY [facility] Last Admin: 01/17/18 09:46 Dose: 100 mls/hr Isosorbide Mononitrate (Imdur Er) 30 mg PO DAILY [facility] Last Admin: 01/17/18 08:54 Dose: 30 mg Methylprednisolone (Solu-Medrol) 60 mg IV Q8H [facility] Montelukast Sodium (Singulair) 10 mg PO DAILY [facility] Ondansetron HCl (Zofran Odt) 4 mg PO Q6 PRN PRN Reason: Nausea/Vomiting Oxycodone/Acetaminophen (Percocet 5/325 Mg Tab) 1 tab PO Q8 PRN PRN Reason: Pain, moderate (4-7) Stop: 01/19/18 01:01 Last Admin: 01/18/18 04:48 Dose: 1 tab Pantoprazole Sodium (Protonix Ec Tab) 40 mg PO DAILY [facility] Last Admin: 01/17/18 08:59 Dose: 40 mg Pravastatin Sodium (Pravachol) 40 mg PO HS [facility] Last Admin: 01/17/18 21:35 Dose: 40 mg Promethazine HCl/Dextromethorphan (Phenergan Dm Syrup) 5 ml PO Q8 PRN PRN Reason: Cough Last Admin: 01/18/18 02:32 Dose: 5 ml Roflumilast (Daliresp) 500 mcg PO DAILY [facility] Fluticasone/Salmeterol (Advair Diskus 250/50) 1 puff IH Q12 [facility] Sucralfate (Carafate Tab) 1 gm PO BID [facility] Last Admin: 01/17/18 16:32 Dose: 1 gm Tiotropium Verdi (Spiriva) 18 mcg INH DAILY [facility] - Labs Labs: 01/16/18 05:30 01/16/18 05:30 - Constitutional Appears: No Acute Distress - Head Exam Head Exam: NORMAL INSPECTION - Respiratory Exam Respiratory Exam: Decreased Breath Sounds, Prolonged Expiratory Phase, Rhonchi, Wheezes - Cardiovascular Exam Cardiovascular Exam: REGULAR RHYTHM, +S1, +S2. absent: Tachycardia - GI/Abdominal Exam GI & Abdominal Exam: Soft. absent: Distended, Tenderness - Extremities Exam Extremities Exam: absent: Calf Tenderness, Pedal Edema - Neurological Exam Neurological Exam: Alert, Awake, Oriented x3 - Skin Skin Exam: Dry, Warm Assessment and Plan - Assessment and Plan (Free Text) Assessment: 77 yo F patient previously admitted to the floor with pneumonia now admitted to TCU to complete IV antibiotics course. Plan: - Cardiology consulted: Dr Stout, consult appreciated. - Troponin trending down. Patient does not have CP - Nephrology consult for CAMPBELL on CKD - c/w ceftriaxone - Duoneb q6hr verónica and q4h prn - started solumedrol IV - c/w home medications - c/w IV fluids - AM labs - rest of the plan as ordered
[2018-01-18] MEDS: Fluticasone-Salmeterol 250-50mcg Diskus IH SCH ×2 (09:28→21:12)
[2018-01-18] MEDS: Cholecalciferol 1,000 INTLU TAB PO SCH (09:30)
[2018-01-18] MEDS: Pantoprazole 40 mg EC Tab PO SCH (09:32)
[2018-01-18] MEDS ORDERED: Sodium Chloride 3% for Inhalation 4 ML VIAL.NEB IH SCH (10:00)
[2018-01-18] MEDS: Tiotropium 18 mcg Cap For Inhalation INH SCH (12:35)
[2018-01-18] MEDS: Insulin Regular 100 units/ml SC SCH ×3 (13:45→21:19)
[2018-01-18 16:40] VITALS: RESP 20
[2018-01-18] MEDS: Pravastatin Sodium 40 MG TAB PO SCH (21:12)
[2018-01-19] MEDS: Albuterol-Ipratrop 3 mg / 0.5 (3 ml) UD INH SCH ×5 (01:05→19:10)
[2018-01-19] MEDS ORDERED: DiphenhydrAMINE 50 mg/ml Inj IM STA (01:53)
--- NOTE | 2018-01-19 02:57 | PCM.RRT ---
<VipulXiomy - Last Filed: 01/19/18 02:57> HAND GLUER AND SLICER Nurse Assessment - Situation HAND GLUER AND SLICER Responder Arrival Time: 02:10 Location: TCU Room Number: 707-2 HAND GLUER AND SLICER Reason for Call: Chest Pain, Respiratory Distress HAND GLUER AND SLICER Called By: RN - IV IV Inserted during HAND GLUER AND SLICER?: Yes New IV Insertion Tolerance:: Fair - Respiratory Oxygen Delivery Method: Room Air Was the Patient Ventilated with Bag/Mask 100% O2?: No Secretions Suctioned?: No Was the Patient Intubated?: No Was the Patient Placed on a Ventilator?: No - Medication Medications Administered During HAND GLUER AND SLICER: DUONEB - Diagnostic Test Ordered EKG: Yes (Sinus rhythm- low voltage) Chest X-Ray: No CT Scan: No - Stat Labs Ordered HAND GLUER AND SLICER Stat Labs Ordered: TROPONIN CPR started during HAND GLUER AND SLICER?: No - Vital Signs Vital Signs: Rapid Response Vital Sign Blood Pressure 123/62 Pulse Rate 87 Respiratory Rate 26 Oxygen Saturation 87 - Time HAND GLUER AND SLICER Ended Time HAND GLUER AND SLICER Ended: 02:46 - Vital Signs at end of HAND GLUER AND SLICER Vital Signs at end of HAND GLUER AND SLICER: Rapid Response End Vital Sign Blood Pressure 124/56 Pulse Rate 86 Respiratory Rate 26 O2 Sat by Pulse Oximetry 92 - Recommendations HAND GLUER AND SLICER Level of Care Recommendations: Remain in current setting I.Reason for HAND GLUER AND SLICER - A) Acute Change in Patient: (Select all that apply): Staff member or family is worried about patient Subjective: S: 77 year old female with history of HTN, HLD, CAD, CHF, COPD, CKD, NIDDM, gastritis, admitted previously with pneumonia, now admitted to TCU - HAND GLUER AND SLICER called because of Desaturation. Patient complained of Chest pain of 7/10. Medications given: - Haldol for confusion- 02:26 - EKG: Sinus rhythm ; Low voltage due to COPD - Sublingual Nitro 0.4mg - 1 po Q5Min prn CP - once dose given 02:22 - 2 mg Morphine - IV insertion- 02:[address] Ghosh. - Troponins ordered A/P: 77 yo F with history HTN, HLD, CAD, CHF, CKD, NIDDM, gastritis HAND GLUER AND SLICER called for De-saturation likely secondary to COPD vs. Cardiac etiology - F/U Troponins - Morphine 2 mg for chest pain. - Neurological Status (Select all that apply): Responsive, Confused - Respiratory Oxygen Delivery Method: Face Mask @% - Constitutional Appears: Confused - Respiratory Exam Respiratory Exam: Respiratory Distress (Desaturation to 98%). absent: Rhonchi, Wheezes - Cardiovascular Exam Cardiovascular Exam: +S1, +S2 - Neurological Exam Additional exam: Confused. <Jonathan Ghosh - Last Filed: 01/19/18 07:26> HAND GLUER AND SLICER Nurse Assessment - Vital Signs Vital Signs: Rapid Response Vital Sign Blood Pressure 109/54 Pulse Rate 88 Respiratory Rate 20 Oxygen Saturation 85 - Vital Signs at end of HAND GLUER AND SLICER Vital Signs at end of HAND GLUER AND SLICER: Rapid Response End Vital Sign Blood Pressure 112/54 Pulse Rate 84 Respiratory Rate 20 O2 Sat by Pulse Oximetry 95 Attending/Attestation - Attestation I have personally seen and examined this patient.: Yes I have fully participated in the care of the patient.: Yes I have reviewed all pertinent clinical information, including history, physical exam and plan: Yes Notes (Text): I saw and examined this patient shoulder to shoulder with Dr Matthew. I agree with the Assessment and plan which represent my direct input. This patient was becoming confused, refusing to keep the Nasal Cannula with Oxygen on her face. She Desaturated to the low 80s. She then began to complain of left chest pain. Haldol was given and she agreed to replace the Oxygen. The pain continued through two NTG SL 0.4mg. Morphine was later given and decreased the pain. EKG showed NSR with low voltage and no sign of Ischemia Tropinin was sent: The result showed normal limits of Troponin. The Patient's confusion improved after receiving the Haldol and having the Oxygen replaced. The SpO2 increased to 92% with Oxygen. Critica Care Time was 30mins. Jonathan Ghosh MD . 01/19/18 07:25
[2018-01-19] MEDS: Insulin Regular 100 units/ml SC SCH ×3 (06:30→17:46)
[2018-01-19 09:04] LABS: HEMOGLOBIN 8.9 g/dL (12.0-16.0); MEAN CELL VOLUME 92.9 fl (81.0-99.0); MEAN CORPUSCULAR HEMOGLOBIN 29.4 pg (27.0-31.0); MEAN CORPUSCULAR HGB CONC 31.7 g/dL (33.0-37.0); RBC 3.01 Mil/uL (3.80-5.20); RED CELL DISTRIBUTION WIDTH 14.6 % (11.5-14.5); WHITE BLOOD COUNT 11.9 K/uL (4.8-10.8)
[2018-01-19 09:17] LABS: ALBUMIN 3.8 g/dL (3.5-5.0); CALCIUM 8.4 mg/dL (8.4-10.2)
[2018-01-19] MEDS: Fluticasone-Salmeterol 250-50mcg Diskus IH SCH (09:28)
[2018-01-19] MEDS: Cholecalciferol 1,000 INTLU TAB PO SCH (09:30)
[2018-01-19] MEDS: Pantoprazole 40 mg EC Tab PO SCH (09:41)
[2018-01-19] MEDS ORDERED: Sodium Chloride 0.45% 1,000 ML IV SCH (10:30)
[2018-01-19] MEDS: Tiotropium 18 mcg Cap For Inhalation INH SCH (10:34)
--- NOTE | 2018-01-19 12:48 | PN ---
DATE: 01/19/2018 SUBJECTIVE: The patient seen and examined. Interim events noted. The patient remains in transitional care unit. The patient had another episode of low saturation requiring LODE MINER called. Also the patient's sugar was high after starting steroid. Currently, the patient feels okay, but complains of generalized weakness. No history of active chest pain. No shortness of breath. Eating her breakfast. PHYSICAL EXAMINATION: GENERAL: The patient is in no acute distress. VITAL SIGNS: Stable. HEART: S1 and S2, normal and regular. LUNGS: Good bilateral air exchange. Occasional prolonged expiration and rhonchi. ABDOMEN: Soft and nontender. No organomegaly noted. Bowel sounds are plus and normal. EXTREMITIES: No calf swelling. No tenderness. No acute ischemia. CENTRAL NERVOUS SYSTEM: Exam is essentially unchanged. DIAGNOSTIC DATA: Available diagnostic data reviewed. Accu-Chek remains high. The patient is on coverage. PLAN: As ordered. Manpreet Austin MD
--- NOTE | 2018-01-19 13:56 | CP.PCM.PN ---
Subjective - Date & Time of Evaluation Date of Evaluation: 01/19/18 Time of Evaluation: 13:56 - Subjective Subjective: pt is c/o not feeleing well c/o generalized pain no edema, no cp, no palpitation, no nausea, no vomitings s.cr is worsening today Objective - Vital Signs/Intake and Output Vital Signs (last 24 hours): Temp Pulse Resp BP Pulse Ox 96.8 F L 87 20 121/67 94 L 01/19/18 08:56 01/19/18 09:36 01/19/18 08:56 01/19/18 09:36 01/19/18 08:56 - Medications Medications: Current Medications Acetaminophen (Tylenol 325mg Tab) 650 mg PO Q6 PRN PRN Reason: Pain, Mild (1-3) Albuterol/Ipratropium (Duoneb 3 Mg/0.5 Mg (3 Ml) Ud) 3 ml INH RQ4 [facility] Last Admin: 01/19/18 07:30 Dose: 3 ml Albuterol/Ipratropium (Duoneb 3 Mg/0.5 Mg (3 Ml) Ud) 3 ml INH RQ6 PRN PRN Reason: Shortness of Breath Last Admin: 01/18/18 04:36 Dose: 3 ml Amlodipine Besylate (Norvasc) 10 mg PO DAILY [facility] Last Admin: 01/19/18 09:36 Dose: 10 mg Aspirin (Ecotrin) 81 mg PO DAILY [facility] Last Admin: 01/19/18 09:33 Dose: 81 mg Benzonatate (Tessalon Perles) 200 mg PO Q8 PRN PRN Reason: Cough Last Admin: 01/19/18 10:34 Dose: 200 mg Bisoprolol Fumarate (Zebeta) 5 mg PO DAILY [facility] Last Admin: 01/19/18 09:38 Dose: 5 mg Cholecalciferol (Vitamin D) 1,000 intlu PO DAILY [facility] Last Admin: 01/19/18 09:30 Dose: 1,000 intlu Ferrous Gluconate (Fergon) 324 mg PO DAILY [facility] Last Admin: 01/19/18 09:33 Dose: 324 mg Glipizide (Glucotrol) 10 mg PO DAILY [facility] Last Admin: 01/19/18 09:33 Dose: 10 mg Ceftriaxone Sodium 1 gm/ (Sodium Chloride) 100 mls @ 100 mls/hr IVPB DAILY [facility] Last Admin: 01/18/18 09:30 Dose: 100 mls/hr Sodium Chloride (Sodium Chloride 0.45%) 1,000 mls @ 70 mls/hr IV .[id number] [facility] Stop: 01/20/18 10:26 Last Admin: 01/19/18 10:47 Dose: 70 mls/hr Insulin Human Regular (Humulin R) 0 units SC ACHS [facility]; Protocol Last Admin: 01/19/18 06:30 Dose: 6 units Isosorbide Mononitrate (Imdur Er) 30 mg PO DAILY [facility] Last Admin: 01/19/18 09:30 Dose: 30 mg Methylprednisolone (Solu-Medrol) 60 mg IV Q12 [facility] Last Admin: 01/19/18 09:32 Dose: 60 mg Montelukast Sodium (Singulair) 10 mg PO DAILY@2200 [facility] Nitroglycerin (Nitrostat Sl Tab) 0.4 mg SL Q5M PRN PRN Reason: Other Last Admin: 01/19/18 03:02 Dose: 0.4 mg Ondansetron HCl (Zofran Odt) 4 mg PO Q6 PRN PRN Reason: Nausea/Vomiting Pantoprazole Sodium (Protonix Ec Tab) 40 mg PO DAILY [facility] Last Admin: 01/19/18 09:41 Dose: 40 mg Pravastatin Sodium (Pravachol) 40 mg PO HS [facility] Last Admin: 01/18/18 21:12 Dose: 40 mg Promethazine HCl/Dextromethorphan (Phenergan Dm Syrup) 5 ml PO Q8 PRN PRN Reason: Cough Last Admin: 01/18/18 18:35 Dose: 5 ml Roflumilast (Daliresp) 500 mcg PO DAILY [facility] Last Admin: 01/19/18 09:29 Dose: 500 mcg Fluticasone/Salmeterol (Advair Diskus 250/50) 1 puff IH Q12 [facility] Last Admin: 01/19/18 09:28 Dose: 1 puff Sucralfate (Carafate Tab) 1 gm PO BID [facility] Last Admin: 01/19/18 09:28 Dose: 1 gm Tiotropium [place] (Spiriva) 18 mcg INH DAILY [facility] Last Admin: 01/19/18 10:34 Dose: 18 mcg - Labs Labs: 01/19/18 08:00 01/19/18 08:00 Assessment and Plan - Assessment and Plan (Free Text) Assessment: 77 year old Female with PMHx of HTN, HLD, CAD, CHF, COPD, CKD, NIDDM, gastritis, ? DJD, spinal stenosis was admitted with cough, sob, feverish, dysuria, fr equency, supra pubic pain, increased bun/cr, base line s.cr 1.6-2 1. CAMPBELL on ckd-3 2. HTN 3. DM 4. pneumonia 5. COPD d/c lasix c/w ivf 1/2 ns at 70 ml/hr c/w iv abx renal function is improving, s.cr is 2.4 ---->2.2 -----> 3.4 today continue PT/OT
[2018-01-19] MEDS: Budesonide 0.5 mg/2 ml Inhal Susp UD IH SCH ×2 (15:27→19:38)
[2018-01-19 15:41] LABS: ABG ALLEN TEST YES; ARTERIAL BLOOD GAS HCO3 17.5 mmol/L (21-28); ARTERIAL BLOOD GAS O2 CAPACITY 12.3 mL/dL (16-24); ARTERIAL BLOOD GAS O2 CONTENT 11.7 ML/dL (15-23); ARTERIAL BLOOD GAS O2 SAT 95.4 % (95-98); ARTERIAL BLOOD GAS PCO2 34 mm/Hg (35-45); ARTERIAL BLOOD GAS PH 7.29 (7.35-7.45); ARTERIAL BLOOD GAS PO2 60 mm/Hg (80-100); ARTERIAL BLOOD GAS TCO2 17.3 mmol/L (22-28)
[2018-01-19] MEDS ORDERED: Oxycodone/Acetaminophen 5/325 mg Tab PO PRN (16:02)
[2018-01-19] MEDS ORDERED: Menthol/Methyl Salicylate Oinment TOP PRN (16:35)
--- NOTE | 2018-01-19 16:55 | CP.PCM.CON ---
History of Present Illness - History of Present Illness History of Present Illness: CC: SOB Pulmonary consult on TCU unit for a 77 y/o F with moderate SOB, associated to wheezing b/l, productive cough, unable to expectorate with no relief. Pt with multiple medical conditions including COPD, A Fib, CAD, CHF, HTN, DM. [facility] due to [facility]NA, on 01/14/18, Pt improved and was admitted to TCU to continue abx Tx for 7 more days. Worsening symptoms: LALA. increased flank pain with coughing. Aggravated factor: Walking. Pt denied: Fever, chills, bloody expectoration, n/v/d, abdominal pain, urinary symptoms, CP, palpitation, syncope, headache, sick contact. Review of Systems - Constitutional Constitutional: Other (negative) - EENT Eyes: Other (negative) Ears: Other (negative) Nose/Mouth/Throat: Other (negative) - Cardiovascular Cardiovascular: Other (negative) - Respiratory Respiratory: Cough, Dyspnea, Dyspnea on Exertion, Wheezing, Pain with Coughing - Gastrointestinal Gastrointestinal: Other (negative) - Genitourinary Genitourinary: Other (negative) - Musculoskeletal Musculoskeletal: Arthralgias, Back Pain - Integumentary Integumentary: Other (negative) - Neurological Neurological: Other (negative) - Psychiatric Psychiatric: Other (negative) - Endocrine Endocrine: Other (negative) - Hematologic/Lymphatic Hematologic: Other (negative) Past Patient History - Past Medical History & Family History Past Medical History?: Yes - Past Social History Smoking Status: Never Smoked Alcohol: None Drugs: Denies Home Situation {Lives}: Alone - CARDIAC Hx Cardiac Disorders: Yes Hx Congestive Heart Failure: Yes Hx Hypertension: Yes - PULMONARY Hx Respiratory Disorders: Yes Hx Bronchitis: Yes Hx Chronic Obstructive Pulmonary Disease (COPD): Yes Hx Pneumonia: Yes - NEUROLOGICAL Hx Neurological Disorder: No - HEENT Hx HEENT Problems: No - RENAL Hx Chronic Kidney Disease: Yes - ENDOCRINE/METABOLIC Hx Endocrine Disorders: Yes Hx Diabetes Mellitus Type 2: Yes - HEMATOLOGICAL/ONCOLOGICAL Hx Blood Disorders: Yes Hx AIDS: No Hx Anemia: Yes Hx Human Immunodeficiency Virus (HIV): No - INTEGUMENTARY Hx Dermatological Problems: No - MUSCULOSKELETAL/RHEUMATOLOGICAL Hx Musculoskeletal Disorders: Yes Hx Arthritis: Yes Hx Falls: Yes - GASTROINTESTINAL Hx Gastrointestinal Disorders: Yes Hx Gall Bladder Disease: Yes Hx Gastritis: Yes - GENITOURINARY/GYNECOLOGICAL Hx Genitourinary Disorders: No - PSYCHIATRIC Hx Psychophysiologic Disorder: Yes Hx Anxiety: Yes Hx Depression: Yes Hx Substance Use: No - SURGICAL HISTORY Hx Surgeries: Yes Hx Cholecystectomy: Yes Hx Coronary Stent: Yes - ANESTHESIA Hx Anesthesia: Yes Hx Anesthesia Reactions: No Hx Malignant Hyperthermia: No Meds Allergies/Adverse Reactions: Allergies Allergy/AdvReac Type Severity Reaction Status Date / Time alprazolam [From Xanax] Allergy SWELLING Verified 01/14/18 15:19 hydromorphone HCl Allergy RASH Verified 01/14/18 15:19 [From Dilaudid] zolpidem tartrate Allergy RASH Verified 01/14/18 15:19 [From Ambien] - Medications Medications: Current Medications Acetaminophen (Tylenol 325mg Tab) 650 mg PO Q6 PRN PRN Reason: Pain, Mild (1-3) Acetylcysteine (Acetylcysteine 20%) 2 ml INH RBID [facility] Albuterol/Ipratropium (Duoneb 3 Mg/0.5 Mg (3 Ml) Ud) 3 ml INH RQ4 [facility] Last Admin: 01/19/18 15:27 Dose: 3 ml Albuterol/Ipratropium (Duoneb 3 Mg/0.5 Mg (3 Ml) Ud) 3 ml INH RQ6 PRN PRN Reason: Shortness of Breath Last Admin: 01/18/18 04:36 Dose: 3 ml Amlodipine Besylate (Norvasc) 10 mg PO DAILY [facility] Last Admin: 01/19/18 09:36 Dose: 10 mg Aspirin (Ecotrin) 81 mg PO DAILY [facility] Last Admin: 01/19/18 09:33 Dose: 81 mg Benzonatate (Tessalon Perles) 200 mg PO Q8 PRN PRN Reason: Cough Last Admin: 01/19/18 10:34 Dose: 200 mg Bisoprolol Fumarate (Zebeta) 5 mg PO DAILY [facility] Last Admin: 01/19/18 09:38 Dose: 5 mg Budesonide (Pulmicort Respules) 0.5 mg IH RBID [facility] Last Admin: 01/19/18 15:27 Dose: 0.5 mg Camphor/Menthol (Bengay) 1 applic TOP Q6 PRN PRN Reason: back pain Cholecalciferol (Vitamin D) 1,000 intlu PO DAILY [facility] Last Admin: 01/19/18 09:30 Dose: 1,000 intlu Epoetin Johnny (Procrit) 10,000 unit SC TTS [facility] Ferrous Gluconate (Fergon) 324 mg PO DAILY [facility] Last Admin: 01/19/18 09:33 Dose: 324 mg Glipizide (Glucotrol) 10 mg PO DAILY [facility] Last Admin: 01/19/18 09:33 Dose: 10 mg Guaifenesin/Dextromethorphan (Mucinex-Dm 600-30 Mg) 1 tab PO BID [facility] Ceftriaxone Sodium 1 gm/ (Sodium Chloride) 100 mls @ 100 mls/hr IVPB DAILY [facility] Last Admin: 01/19/18 13:54 Dose: 100 mls/hr Sodium Chloride (Sodium Chloride 0.45%) 1,000 mls @ 70 mls/hr IV .[id number] [facility] Stop: 01/20/18 10:26 Last Admin: 01/19/18 10:47 Dose: 70 mls/hr Insulin Human Regular (Humulin R) 0 units SC ACHS [facility]; Protocol Last Admin: 01/19/18 12:15 Dose: 6 units Isosorbide Mononitrate (Imdur Er) 30 mg PO DAILY [facility] Last Admin: 01/19/18 09:30 Dose: 30 mg Methylprednisolone (Solu-Medrol) 60 mg IV Q12 [facility] Last Admin: 01/19/18 09:32 Dose: 60 mg Montelukast Sodium (Singulair) 10 mg PO DAILY@2200 [facility] Nitroglycerin (Nitrostat Sl Tab) 0.4 mg SL Q5M PRN PRN Reason: Other Last Admin: 01/19/18 03:02 Dose: 0.4 mg Ondansetron HCl (Zofran Odt) 4 mg PO Q6 PRN PRN Reason: Nausea/Vomiting Oxycodone/Acetaminophen (Percocet 5/325 Mg Tab) 1 tab PO Q8 PRN PRN Reason: Pain, severe (8-10) Stop: 01/22/18 17:01 Pantoprazole Sodium (Protonix Ec Tab) 40 mg PO DAILY [facility] Last Admin: 01/19/18 09:41 Dose: 40 mg Pravastatin Sodium (Pravachol) 40 mg PO HS [facility] Last Admin: 01/18/18 21:12 Dose: 40 mg Promethazine HCl/Dextromethorphan (Phenergan Dm Syrup) 5 ml PO Q8 PRN PRN Reason: Cough Last Admin: 01/18/18 18:35 Dose: 5 ml Roflumilast (Daliresp) 500 mcg PO DAILY [facility] Last Admin: 01/19/18 09:29 Dose: 500 mcg Sucralfate (Carafate Tab) 1 gm PO BID [facility] Last Admin: 01/19/18 09:28 Dose: 1 gm Tramadol HCl (Ultram) 50 mg PO Q8 PRN PRN Reason: Pain, moderate (4-7) Last Admin: 01/19/18 15:20 Dose: 50 mg Physical Exam - Constitutional Appears: No Acute Distress - Head Exam Head Exam: NORMAL INSPECTION - Eye Exam Eye Exam: PERRL - ENT Exam ENT Exam: Normal Exam - Neck Exam Neck exam: Positive for: Normal Inspection - Respiratory Exam Respiratory Exam: Decreased Breath Sounds (at bases), Rhonchi (b/l), Wheezes (b/l) - Cardiovascular Exam Cardiovascular Exam: REGULAR RHYTHM - GI/Abdominal Exam GI & Abdominal Exam: Normal Bowel Sounds, Soft - Extremities Exam Additional comments: 1`+ non pitting edema BLE - Neurological Exam Neurological exam: Alert, Oriented x3 - Psychiatric Exam Psychiatric exam: Normal Mood - Skin Skin Exam: Warm Results - Vital Signs Recent Vital Signs: Last Vital Signs Temp 97.3 F L 01/19/18 15:29 Pulse 87 01/19/18 15:29 Resp 20 01/19/18 15:29 BP 134/74 01/19/18 15:29 Pulse Ox 95 01/19/18 15:29 reviewed Kasey - Labs Result Diagrams: 01/19/18 08:00 01/19/18 08:00 Labs: Laboratory Results - last 24 hr 01/18/18 01/19/18 01/19/18 21:14 01:54 02:55 WBC RBC Hgb Hct MCV MCH MCHC RDW Plt Count pCO2 pO2 HCO3 ABG pH ABG Total CO2 ABG O2 Saturation ABG O2 Content ABG Base Excess ABG Hemoglobin ABG Carboxyhemoglobin POC ABG HHb (Measured) ABG Methemoglobin ABG O2 Capacity Rosales Test A-a O2 Difference Hgb O2 Saturation FiO2 Sodium Potassium Chloride Carbon Dioxide Anion Gap BUN Creatinine Est GFR ( Amer) Est GFR (Non-Af Amer) POC Glucose (mg/dL) > 500 H* 392 H Random Glucose Calcium Total Bilirubin AST ALT Alkaline Phosphatase Troponin I 0.0600 Total Protein Albumin Globulin Albumin/Globulin Ratio 01/19/18 01/19/18 01/19/18 06:25 08:00 08:00 WBC 11.9 H RBC 3.01 L Hgb 8.9 L Hct 28.0 L MCV 92.9 MCH 29.4 MCHC 31.7 L RDW 14.6 H Plt Count 349 pCO2 pO2 HCO3 ABG pH ABG Total CO2 ABG O2 Saturation ABG O2 Content ABG Base Excess ABG Hemoglobin ABG Carboxyhemoglobin POC ABG HHb (Measured) ABG Methemoglobin ABG O2 Capacity Rosales Test A-a O2 Difference Hgb O2 Saturation FiO2 Sodium 131 L Potassium 4.6 Chloride 102 Carbon Dioxide 16 L Anion Gap 18 BUN 52 H Creatinine 3.4 H Est GFR ( Amer) 16 Est GFR (Non-Af Amer) 13 POC Glucose (mg/dL) 349 H Random Glucose 352 H Calcium 8.4 Total Bilirubin 0.3 AST 27 ALT 17 Alkaline Phosphatase 81 Troponin I Total Protein 7.4 Albumin 3.8 Globulin 3.6 Albumin/Globulin Ratio 1.0 01/19/18 01/19/18 01/19/18 11:14 14:56 16:06 WBC RBC Hgb Hct MCV MCH MCHC RDW Plt Count pCO2 34 L pO2 60 L HCO3 17.5 L ABG pH 7.29 L ABG Total CO2 17.3 L ABG O2 Saturation 95.4 ABG O2 Content 11.7 L ABG Base Excess -9.4 L ABG Hemoglobin 9.0 L ABG Carboxyhemoglobin 2.0 H POC ABG HHb (Measured) 4.4 ABG Methemoglobin 1.7 ABG O2 Capacity 12.3 L Rosales Test Yes A-a O2 Difference 154.0 Hgb O2 Saturation 92.0 L FiO2 36.0 Sodium Potassium Chloride Carbon Dioxide Anion Gap BUN Creatinine Est GFR ( Amer) Est GFR (Non-Af Amer) POC Glucose (mg/dL) 319 H 297 H Random Glucose Calcium Total Bilirubin AST ALT Alkaline Phosphatase Troponin I Total Protein Albumin Globulin Albumin/Globulin Ratio reviewed [facility] - Imaging and Cardiology Chest x-ray Status: Report reviewed by me (from 01/10/10) Assessment & Plan (1) COPD exacerbation Status: Acute Priority: High (2) Pneumonia Status: Acute Priority: High - Assessment and Plan (Free Text) Plan: Continue NC 2 L/M, CXR, Continue Ceftriaxone, Zithromax, Duoneb, Solu-Medrol, Promethazine DM and rest of Tx. - Date & Time Date: 01/20/18
[2018-01-19] MEDS ORDERED: guaiFENesin-DM 600-30 mg ER Tab PO SCH (17:00)
[2018-01-19] MEDS: Acetylcysteine 20% Inhal Soln (4ml) INH SCH ×2 (18:23→19:11)
[2018-01-19 19:38] VITALS: BP 114/64; PULSE 84; TEMP 97.5; O2SAT 91
[2018-01-21] MEDS ORDERED: EPOETIN ALFA 10,000 UNIT/ML ML SC SCH (13:56)
== END 2018-01-19 21:35 | disposition short-term general hospital (02) | DRG 194 ==
LOC: H.TCU 16:00
PROVIDERS: ADMIT Internal Medicine; ATTEND Internal Medicine
PROC: 3E03329 Introduction of Other Anti-infective into Peripheral Vein, Percutaneous Approach (ICD-10-PCS; principal; 2018-01-14)
PROC: F07Z9FZ Gait Training/Functional Ambulation Treatment using Assistive, Adaptive, Supportive or Protective Equipment (ICD-10-PCS; 2018-01-14)
PROC: F08Z4FZ Home Management Treatment using Assistive, Adaptive, Supportive or Protective Equipment (ICD-10-PCS; 2018-01-14)
PROC: F07M6FZ Therapeutic Exercise Treatment of Musculoskeletal System - Whole Body using Assistive, Adaptive, Supportive or Protective Equipment (ICD-10-PCS; 2018-01-15)
DX: J18.9 Pneumonia, unspecified organism (principal); I13.0 Hypertensive heart and chronic kidney disease with heart failure and stage 1 through stage 4 chronic kidney disease, or unspecified chronic kidney disease; J44.0 Chronic obstructive pulmonary disease with (acute) lower respiratory infection; N17.9 Acute kidney failure, unspecified; I25.2 Old myocardial infarction; I25.10 Atherosclerotic heart disease of native coronary artery without angina pectoris; N18.3 Chronic kidney disease, stage 3 (moderate); G89.29 Other chronic pain; M54.5 Low back pain; E11.22 Type 2 diabetes mellitus with diabetic chronic kidney disease; I48.91 Unspecified atrial fibrillation; I50.9 Heart failure, unspecified; E78.5 Hyperlipidemia, unspecified; E78.00 Pure hypercholesterolemia, unspecified; M19.90 Unspecified osteoarthritis, unspecified site; M48.00 Spinal stenosis, site unspecified; F41.9 Anxiety disorder, unspecified; Z87.01 Personal history of pneumonia (recurrent); Z95.5 Presence of coronary angioplasty implant and graft; Z79.84 Long term (current) use of oral hypoglycemic drugs

== ENCOUNTER 2018-01-19 21:38 | Inpatient (IN) | payer MEDICARE, MEDICAID ==
[2018-01-19 22:14] VITALS: BMI 29.2
[2018-01-19] MEDS ORDERED: Albuterol-Ipratrop 3 mg / 0.5 (3 ml) UD INH STA (22:30)
[2018-01-19] MEDS ORDERED: Oxycodone/Acetaminophen 5/325 mg Tab PO STA (22:30)
[2018-01-19] MEDS ORDERED: Albuterol-Ipratrop 3 mg / 0.5 (3 ml) UD ONE (22:38)
[2018-01-19 23:15] LABS: BASO # 0.1 K/uL (0.0-0.2); BASO % 0.9 % (0.0-2.0); HEMOGLOBIN 8.9 g/dL (12.0-16.0); LYMPH # 0.2 K/uL (1.0-4.3); LYMPH % 1.7 % (20.0-40.0); MEAN CELL VOLUME 91.4 fl (81.0-99.0); MEAN CORPUSCULAR HEMOGLOBIN 29.1 pg (27.0-31.0); MEAN CORPUSCULAR HGB CONC 31.8 g/dL (33.0-37.0); MEAN PLATELET VOLUME 7.2 fl (7.2-11.7); MONO # 0.4 K/uL (0.0-0.8); NEUT # 13.6 K/uL (1.8-7.0); NEUT % 94.4 % (50.0-75.0); NRBC % 0.1 % (0.0-0.0); PLATELET COUNT 380 K/uL (130-400); RBC 3.07 Mil/uL (3.80-5.20); RED CELL DISTRIBUTION WIDTH 14.5 % (11.5-14.5); WHITE BLOOD COUNT 14.4 K/uL (4.8-10.8)
[2018-01-19 23:20] LABS: PARTIAL THROMBOPLASTIN TIME 27.2 Seconds (25.6-37.1)
[2018-01-19] MEDS ORDERED: Morphine 4 MG/ML VIAL ONE (23:26)
[2018-01-19 23:32] LABS: TROPONIN I 0.074 ng/mL (0.00-0.120)
[2018-01-19 23:42] LABS: ALBUMIN 3.9 g/dL (3.5-5.0); CALCIUM 8.2 mg/dL (8.4-10.2)
--- NOTE | 2018-01-20 01:00 | ED PDOC ---
HPI: SOB/CHF/COPD Time Seen by Provider: 01/19/18 21:48 Chief Complaint (Nursing): Shortness Of Breath Chief Complaint (Provider): Shortness Of Breath History Per: Patient History/Exam Limitations: no limitations Onset/Duration Of Symptoms: Hrs (x48) Current Symptoms Are (Timing): Still Present Additional Complaint(s): 77 year old male transferred to ED from TCU for medical assessment of shortness of breath for the last 48 hours. Patient is currently receiving treatment for pneumonia by Dr. Farah and Dr. Austin whom requests patient be moved for more aggressive treatment. ROT was called twice in the last 2 days. Patient denies any further medical complaints except for her chronic back pain. PMD: Dr. Manpreet Austin Pulm: Dr. Ziyad Farah Past Medical History Reviewed: Historical Data, Nursing Documentation, Vital Signs Vital Signs: Last Vital Signs Temp Pulse 87 01/19/18 23:55 Resp 24 01/19/18 23:55 BP 110/61 01/19/18 23:55 Pulse Ox 94 L 01/19/18 23:55 - Medical History PMH: Anemia, Anxiety, Arthritis, Atrial Fibrillation, Back Problems (had recent injury/fall and was hospitalized for back pain(no findings)), Bronchitis, CAD, Cardia Arrhythmia, CHF, COPD, Depression, Diabetes (type II), Gastritis, Gall Bladder Disease, Hepatitis (B), HTN, Hypercholesterolemia, Hyperlipidemia, Osteoporosis, Peripheral Edema, Pneumonia, Chronic Kidney Disease Denies: Asthma, HIV, End Stage Renal Disease - Surgical History Surgical History: Cholecystectomy, Coronary Stent, (x 2) - Family History Family History: States: Hypertension - Immunization History Hx Tetanus Toxoid Vaccination: No Hx Influenza Vaccination: Yes Hx Pneumococcal Vaccination: Yes - Home Medications Home Medications: Ambulatory Orders Medication Instructions Recorded RX: Pravastatin Sodium [Pravachol] 40 mg PO HS 07/17/16 RX: Aspirin [Lo-Dose Aspirin EC] 81 mg PO DAILY 05/05/17 RX: GlipiZIDE [Glucotrol] 10 mg PO DAILY #20 tab 06/05/17 RX: Isosorbide Mononitrate ER 30 mg PO DAILY #20 tab 06/05/17 [Imdur ER] RX: SITagliptin [Januvia] 100 mg PO DAILY #20 tab 06/05/17 RX: Ferrous Gluconate [Fergon] 324 mg PO DAILY 10/19/17 RX: Sucralfate [Carafate] 1 gm PO BID 10/19/17 RX: Losartan [Cozaar] 50 mg PO DAILY #30 tab 10/26/17 RX: amLODIPine [Norvasc] 10 mg PO DAILY #30 tab 10/26/17 RX: Acetaminophen [Tylenol 325mg 650 mg PO Q6 PRN 01/10/18 tab] RX: Bisoprolol [Zebeta] 5 mg PO DAILY 01/10/18 RX: Cholecalciferol [Vitamin D 1,000 unit PO DAILY 01/10/18 1000 IU] RX: Empagliflozin [Jardiance] 10 mg PO DAILY 01/10/18 RX: Furosemide [Lasix] 40 mg PO DAILY 01/10/18 Azithromycin 500MG/NS 250ml 500 mg IV DAILY #5 bag 01/14/18 [Zithromax 500mg in NS] RX: Pantoprazole [Protonix EC Tab] 40 mg PO DAILY ect 01/14/18 RX: oxyCODONE/Acetaminophen 1 tab PO Q12 PRN #10 tab 01/14/18 [Percocet 5/325 mg Tab] cefTRIAXone 1 gm [Rocephin 1 gram 1 gm IVPB DAILY #5 bag 01/14/18 IVPB] - Allergies Allergies/Adverse Reactions: Allergies Allergy/AdvReac Type Severity Reaction Status Date / Time alprazolam [From Xanax] Allergy SWELLING Verified 01/14/18 15:19 hydromorphone HCl Allergy RASH Verified 01/14/18 15:19 [From Dilaudid] zolpidem tartrate Allergy RASH Verified 01/14/18 15:19 [From Ambien] Review of Systems ROS Statement: Except As Marked, All Systems Reviewed And Found Negative Respiratory: Positive for: Shortness of Breath Musculoskeletal: Positive for: Back Pain (chronic) Physical Exam - Reviewed Nursing Documentation Reviewed: Yes Vital Signs Reviewed: Yes - Physical Exam Appears: Positive for: Uncomfortable Head Exam: Positive for: ATRAUMATIC, NORMAL INSPECTION, NORMOCEPHALIC Skin: Positive for: Normal Color Eye Exam: Positive for: Normal appearance ENT: Positive for: Normal ENT Inspection Neck: Positive for: Normal Cardiovascular/Chest: Positive for: Regular Rate, Rhythm Respiratory: Positive for: Decreased Breath Sounds (and air entry), Wheezing (bilaterally). Negative for: Respiratory Distress Gastrointestinal/Abdominal: Positive for: Normal Exam, Soft. Negative for: Tenderness Extremity: Positive for: Normal ROM (upper/lower) Neurologic/Psych: Positive for: Alert, Oriented. Negative for: Motor/Sensory Deficits - Laboratory Results Result Diagrams: 01/19/18 23:03 01/19/18 23:03 - ECG O2 Sat by Pulse Oximetry: 94 (RA) Pulse Ox Interpretation: Normal Medical Decision Making Medical Decision Making: Initial Impression: 77 year old female with COPD exacerbation and pneum onia. Initial Plan: * Labs * EKG * CXR * Duoneb 6ml INH * Lasix 40mg IV * Morphine 4mg IVP * Percocet 5/325mg * Blood culture Time: 2223 --CXR interpreted by provider: positive for cardiomegaly and pulmonary vascular congestion consistent with CHF. Case discussed with Dr. Austin and Dr. Farah. Patient will be admitted to telemetry unit. Scribe Attestation: Documented by Mariana Mcgowan, acting as a scribe for Real Lira MD. Provider Scribe Attestation: All medical record entries made by the Scribe were at my direction and personally dictated by me. I have reviewed the chart and agree that the record accurately reflects my personal performance of the history, physical exam, medical decision making, and the department course for this patient. I have also personally directed, reviewed, and agree with the discharge instructions and disposition. Disposition - Clinical Impression Clinical Impression: COPD (chronic obstructive pulmonary disease), Pneumonia - Disposition Disposition: Discharged/Transfer to Law Enforcement Disposition Time: 22:00 Condition: FAIR
[2018-01-20 03:11] LABS: LYMPHOCYTE 3 % (20-50); MONOCYTE 3 % (0-10); NEUTROPHIL 94 % (42-75); TOTAL CELLS COUNTED 100
[2018-01-20 03:12] LABS: HYPOCHROMIC SLIGHT; PLATELET ESTIMATE NORMAL (NORMAL)
[2018-01-20 03:13] LABS: OVALOCYTES SLIGHT
[2018-01-20] MEDS ORDERED: Sodium Chloride 3% for Inhalation 4 ML VIAL.NEB IH PRN (07:11)
[2018-01-20] MEDS: Insulin Lispro (humaLOG) 100 Units/ml Inj SC SCH ×4 (07:14→22:10)
[2018-01-20] MEDS: Oxycodone/Acetaminophen 5/325 mg Tab PO PRN (07:35)
[2018-01-20 07:52] LABS: SQUAMOUS EPITHIAL 9 /hpf (0-5); URINE AMORPHOUS SEDIMENT OCC /ul (<OCC); URINE BACTERIA OCC (<OCC); URINE BILIRUBIN NEGATIVE (NEGATIVE); URINE BLOOD SMALL (NEGATIVE); URINE CLARITY CLOUDY (Clear); URINE COLOR YELLOW (YELLOW); URINE GLUCOSE (UA) 50 mg/dL (Normal); URINE LEUKOCYTE ESTERASE NEG Leu/uL (Negative); URINE PROTEIN >=500 mg/dL (NEGATIVE); URINE UROBILINOGEN 0.2-1.0 mg/dL (0.2-1.0)
[2018-01-20] MEDS: Albuterol-Ipratrop 3 mg / 0.5 (3 ml) UD INH SCH ×5 (08:00→23:54)
[2018-01-20] MEDS: Pantoprazole 40 mg EC Tab PO SCH (09:21)
[2018-01-20] MEDS: Enoxaparin 30 mg Syringe SC SCH (09:24)
[2018-01-20] MEDS: Moxifloxacin IV 400mg/250ml NS 400 MG/250 ML BAG IVPB SCH (10:57)
--- NOTE | 2018-01-20 11:16 | RAD ---
Date of service: 01/19/2018 HISTORY: sob COMPARISON: Comparison made with chest radiograph dated 01/10/2018 FINDINGS: LUNGS: Mild pulmonary venous congestive changes with what appear to represent bilateral lower lobe infiltrates and bilateral effusions.. PLEURA: No significant pleural effusion identified, no pneumothorax apparent. CARDIOVASCULAR: There is aortic atherosclerotic calcification present Cardiomegaly OSSEOUS STRUCTURES: No significant abnormalities. VISUALIZED UPPER ABDOMEN: Normal. OTHER FINDINGS: None. IMPRESSION: Mild pulmonary venous congestive changes with what appear to represent bilateral lower lobe infiltrates and bilateral effusions..
--- NOTE | 2018-01-20 12:27 | CARD ---
APPROVED REPORT Date of service: 01/19/2018 EKG Measurement Heart [id number] <Conclusion> Sinus rhythm with occasional premature ventricular complexes Nonspecific ST and T wave abnormality Abnormal ECG
[2018-01-20] MEDS: Cholecalciferol 1,000 INTLU TAB PO SCH (13:12)
--- NOTE | 2018-01-20 15:46 | CP.PCM.CON ---
History of Present Illness - History of Present Illness History of Present Illness: Pulmonary consult for a 77 y/o F, PMHx COPD, HTN, CAD, CHF, originally admitted to telemetry on 01/10/18 due to COPD, PNA, there after transferred to TCU on 01/14/18 for continue abx coverage. Pt was seen by me in this facility on 1 for SOB, associated to wheezing b/l, productive cough unable to expectorate with no relief. Dx with COPD exacerbation. In the afternoon of the same visit day, as per nurse, Pt developed respiratory distress associated to increased confusion and I suggested, Pt should be referred to ED for evaluation considering that respiratory condition should be Tx in Telemetry floor and considering that Pt was unable to do Physical therapy in TCU unit. After evaluation, Pt was admitted to Telemetry. Worsening symptoms: LALA. cough with small amount of brownish sputum. Bilateral lower infiltrates and effusion on CXR. Aggravated factor: coughing. Pt denied: Fever, chills, headache, n/v/d, abdominal pain, CP, palpitations, headache. EKG: Sinus rhythm with occasional PVC's. Review of Systems - Constitutional Constitutional: Other (negative) - EENT Eyes: Other (negative) Ears: Other (negative) Nose/Mouth/Throat: Other (negative) - Cardiovascular Cardiovascular: Other (negative) - Respiratory Respiratory: Cough, Dyspnea, Dyspnea on Exertion, Wheezing, Chest Congestion, Pain with Coughing - Gastrointestinal Gastrointestinal: Other (negative) - Genitourinary Genitourinary: Other (negative) - Musculoskeletal Musculoskeletal: Arthralgias, Back Pain - Integumentary Integumentary: Other (negative) - Neurological Neurological: Other (negative) - Psychiatric Psychiatric: Other (negative) - Endocrine Endocrine: Other (negative) - Hematologic/Lymphatic Hematologic: Other (negative) Past Patient History - Past Medical History & Family History Past Medical History?: Yes Pertinent Family History: Unknown - Past Social History Smoking Status: Never Smoked Alcohol: None Drugs: Denies Home Situation {Lives}: Alone - CARDIAC Hx Cardiac Disorders: Yes Hx Atrial Fibrillation: Yes Hx Cardia Arrhythmia: Yes Hx Congestive Heart Failure: Yes Hx Hypercholesterolemia: Yes Hx Hypertension: Yes Hx Peripheral Edema: Yes - PULMONARY Hx Respiratory Disorders: Yes Hx Asthma: No Hx Bronchitis: Yes Hx Chronic Obstructive Pulmonary Disease (COPD): Yes Hx Pneumonia: Yes - NEUROLOGICAL Hx Neurological Disorder: No - HEENT Hx HEENT Problems: Yes Hx Cataracts: Yes - RENAL Hx Chronic Kidney Disease: Yes - ENDOCRINE/METABOLIC Hx Endocrine Disorders: Yes Hx Diabetes Mellitus Type 2: Yes - HEMATOLOGICAL/ONCOLOGICAL Hx Blood Disorders: Yes Hx Anemia: Yes Hx Human Immunodeficiency Virus (HIV): No - INTEGUMENTARY Hx Dermatological Problems: No - MUSCULOSKELETAL/RHEUMATOLOGICAL Hx Musculoskeletal Disorders: Yes Hx Arthritis: Yes Hx Osteoporosis: Yes - GASTROINTESTINAL Hx Gall Bladder Disease: Yes Hx Gastritis: Yes - GENITOURINARY/GYNECOLOGICAL Hx Genitourinary Disorders: No - PSYCHIATRIC Hx Psychophysiologic Disorder: Yes Hx Anxiety: Yes Hx Depression: Yes - SURGICAL HISTORY Hx Surgeries: Yes Hx Cholecystectomy: Yes Hx Coronary Stent: Yes - ANESTHESIA Hx Anesthesia: Yes Hx Anesthesia Reactions: No Hx Malignant Hyperthermia: No Meds Allergies/Adverse Reactions: Allergies Allergy/AdvReac Type Severity Reaction Status Date / Time alprazolam [From Xanax] Allergy SWELLING Verified 01/14/18 15:19 hydromorphone HCl Allergy RASH Verified 01/14/18 15:19 [From Dilaudid] zolpidem tartrate Allergy RASH Verified 01/14/18 15:19 [From Ambien] - Medications Medications: Current Medications Acetaminophen (Tylenol 325mg Tab) 650 mg PO Q6 PRN PRN Reason: Pain, Mild (1-3) Albuterol/Ipratropium (Duoneb 3 Mg/0.5 Mg (3 Ml) Ud) 3 ml INH RQ4 [facility] Last Admin: 01/20/18 15:28 Dose: 3 ml Amlodipine Besylate (Norvasc) 10 mg PO DAILY [facility] Last Admin: 01/20/18 09:19 Dose: 10 mg Aspirin (Ecotrin) 81 mg PO DAILY [facility] Last Admin: 01/20/18 09:22 Dose: 81 mg Bisoprolol Fumarate (Zebeta) 5 mg PO DAILY [facility] Last Admin: 01/20/18 09:22 Dose: 5 mg Cholecalciferol (Vitamin D) 1,000 intlu PO DAILY [facility] Last Admin: 01/20/18 13:12 Dose: Not Given Enoxaparin Sodium (Lovenox) 30 mg SC DAILY [facility]; Protocol Last Admin: 01/20/18 09:24 Dose: 30 mg Ferrous Gluconate (Fergon) 324 mg PO DAILY [facility] Last Admin: 01/20/18 09:23 Dose: 324 mg Furosemide (Lasix) 40 mg PO DAILY [facility] Last Admin: 01/20/18 09:26 Dose: 40 mg Glipizide (Glucotrol) 10 mg PO DAILY [facility] Last Admin: 01/20/18 09:23 Dose: 10 mg Home Med (Empagliflozin [Jardiance]) 10 mg PO DAILY [facility] Moxifloxacin HCl (Avelox Iv 400mg/250ml Ns) 400 mg in 250 mls @ 250 mls/hr IVPB DAILY [facility]; Protocol Last Admin: 01/20/18 10:57 Dose: 250 mls/hr Insulin Human Lispro (Humalog) 0 units SC ACHS [facility]; Protocol Last Admin: 01/20/18 11:36 Dose: Not Given Isosorbide Mononitrate (Imdur Er) 30 mg PO DAILY [facility] Last Admin: 01/20/18 09:23 Dose: 30 mg Losartan Potassium (Cozaar) 50 mg PO DAILY [facility] Last Admin: 01/20/18 09:26 Dose: 50 mg Methylprednisolone (Solu-Medrol) 60 mg IVP Q6 [facility] Last Admin: 01/20/18 09:18 Dose: 60 mg Oxycodone/Acetaminophen (Percocet 5/325 Mg Tab) 1 tab PO Q12 PRN PRN Reason: Pain, severe (8-10) Stop: 01/23/18 06:59 Last Admin: 01/20/18 07:35 Dose: 1 tab Pantoprazole Sodium (Protonix Ec Tab) 40 mg PO DAILY [facility] Last Admin: 01/20/18 09:21 Dose: 40 mg Pravastatin Sodium (Pravachol) 40 mg PO [facility] Sitagliptin Phosphate (Januvia) 100 mg PO DAILY [facility] Last Admin: 01/20/18 09:19 Dose: 100 mg Sucralfate (Carafate Tab) 1 gm PO BID [facility] Last Admin: 01/20/18 09:20 Dose: 1 gm Physical Exam - Constitutional Appears: No Acute Distress - Head Exam Head Exam: NORMAL INSPECTION - Eye Exam Eye Exam: PERRL - ENT Exam ENT Exam: Normal Exam - Neck Exam Neck exam: Positive for: Normal Inspection - Respiratory Exam Respiratory Exam: Decreased Breath Sounds (at bases), Rhonchi (b/l), Wheezes (b/l) - Cardiovascular Exam Cardiovascular Exam: REGULAR RHYTHM - GI/Abdominal Exam GI & Abdominal Exam: Normal Bowel Sounds, Soft - Extremities Exam Additional comments: Edema BLE - Neurological Exam Neurological exam: Alert, Oriented x3 - Psychiatric Exam Psychiatric exam: Normal Mood - Skin Skin Exam: Warm Results - Vital Signs Recent Vital Signs: Last Vital Signs Temp 97.5 F L 01/20/18 11:59 Pulse 81 01/20/18 15:29 Resp 18 01/20/18 11:59 BP 133/73 01/20/18 11:59 Pulse Ox 90 L 01/20/18 11:59 reviewed Kasey - Labs Result Diagrams: 01/21/18 04:20 01/21/18 04:20 Labs: Laboratory Results - last 24 hr 01/19/18 01/19/18 01/19/18 23:03 23:03 23:03 WBC 14.4 H RBC 3.07 L Hgb 8.9 L Hct 28.1 L MCV 91.4 MCH 29.1 MCHC 31.8 L RDW 14.5 Plt Count 380 MPV 7.2 Neut % (Auto) 94.4 H Lymph % (Auto) 1.7 L [place] % (Auto) 3.0 Eos % (Auto) 0.0 Baso % (Auto) 0.9 Neut # (Auto) 13.6 H Lymph # (Auto) 0.2 L [place] # (Auto) 0.4 Eos # (Auto) 0.0 Baso # (Auto) 0.1 Neutrophils % (Manual) 94 H Lymphocytes % (Manual) 3 L Monocytes % (Manual) 3 Platelet Estimate Normal Hypochromasia (manual) Slight Ovalocytes Slight PT 11.0 INR 1.0 APTT 27.2 Sodium 131 L Potassium 4.7 Chloride 97 L Carbon Dioxide 18 L Anion Gap 21 H BUN 55 H Creatinine 3.8 H Est GFR ( Amer) 14 Est GFR (Non-Af Amer) 11 Random Glucose 183 H Calcium 8.2 L Total Bilirubin 0.2 AST 33 ALT 21 Alkaline Phosphatase 84 Troponin I 0.0740 NT-Pro-B Natriuret Pep 81334 H Total Protein 7.7 Albumin 3.9 Globulin 3.7 Albumin/Globulin Ratio 1.0 Urine Color Urine Clarity Urine pH Ur Specific [place] Urine Protein Urine Glucose (UA) Urine Ketones Urine Blood Urine Nitrate Urine Bilirubin Urine Urobilinogen Ur Leukocyte Esterase Urine RBC (Auto) Urine Microscopic WBC Ur Squamous Epith Cells Amorphous Sediment Urine Bacteria Hyaline Casts 01/20/18 07:00 WBC RBC Hgb Hct MCV MCH MCHC RDW Plt Count MPV Neut % (Auto) Lymph % (Auto) [place] % (Auto) Eos % (Auto) Baso % (Auto) Neut # (Auto) Lymph # (Auto) [place] # (Auto) Eos # (Auto) Baso # (Auto) Neutrophils % (Manual) Lymphocytes % (Manual) Monocytes % (Manual) Platelet Estimate Hypochromasia (manual) Ovalocytes PT INR APTT Sodium Potassium Chloride Carbon Dioxide Anion Gap BUN Creatinine Est GFR ( Amer) Est GFR (Non-Af Amer) Random Glucose Calcium Total Bilirubin AST ALT Alkaline Phosphatase Troponin I NT-Pro-B Natriuret Pep Total Protein Albumin Globulin Albumin/Globulin Ratio Urine Color Yellow Urine Clarity Cloudy Urine pH 5.0 Ur Specific [place] 1.013 Urine Protein >=500 Urine Glucose (UA) 50 Urine Ketones Negative Urine Blood Small Urine Nitrate Negative Urine Bilirubin Negative Urine Urobilinogen 0.2-1.0 Ur Leukocyte Esterase Neg Urine RBC (Auto) 4 H Urine Microscopic WBC 4 Ur Squamous Epith Cells 9 H Amorphous Sediment Occ H Urine Bacteria Occ H Hyaline Casts 6-10 H reviewed J.P. - EKG Data EKG comments: reviewed J.P. - Imaging and Cardiology Chest x-ray Status: Report reviewed by me (Kasey) Assessment & Plan (1) Pneumonia Status: Acute Priority: High (2) COPD exacerbation Status: Acute Priority: High - Assessment and Plan (Free Text) Plan: O2 NC 3 L/M, continue Avelox IV, Duoneb, Solu-Medro and rest of Tx. F/U CT Chest. - Date & Time Date: 01/20/18
--- NOTE | 2018-01-20 19:47 | HP ---
CHIEF COMPLAINT: Shortness of breath. HISTORY OF PRESENT ILLNESS: This is a 77-year-old female known case of advanced COPD, bronchial asthma, hypertension, coronary artery disease, congestive heart failure, diabetes, chronic renal insufficiency who was in transitional care unit after admission for COPD exacerbation. The patient was in transitional care unit where the patient had multiple PULMONOLOGIST and the patient yesterday had a pulmonary intervention who suggested the patient to be transferred to medical floor, so the patient was sent to the medical floor and was admitted for further management. REVIEW OF SYSTEMS: Positive for generalized malaise, weakness, fatigue, tiredness and shortness of breath. Review of systems otherwise also is positive for chronic pain. Review of systems otherwise is negative for headache, dizziness, syncope, loss of consciousness, nausea, vomiting, diarrhea, constipation, any new joint or extremity pain. Review of systems of all other organ system was unremarkable. PAST MEDICAL HISTORY: Significant for hypertension, coronary artery disease, congestive heart failure, COPD, diabetes, bronchial asthma, osteoarthritis, chronic renal insufficiency. PAST SURGICAL HISTORY: Unremarkable. PERSONAL HISTORY: The patient is currently nonsmoker, nondrinker, no substance abuse. MEDICATIONS: The patient is on multiple medications, which is as per reconciliation sheet, which was reviewed and ordered. ALLERGIES: THE PATIENT IS NOT ALLERGIC TO ANY MEDICATIONS. FAMILY HISTORY: Noncontributory. PHYSICAL EXAMINATION: GENERAL: A well-built, well-nourished overweight, chronically sick looking elderly female in no acute distress. VITAL SIGNS: Temperature afebrile, pulse 99, respirations 18, blood pressure 136/76. HEENT: Pupils reacting to light. No JVD. No thyromegaly. No lymphadenopathy. No nystagmus. Normocephalic and atraumatic skull. HEART: S1 and S2. Normal and regular. No significant murmur, gallop or rubs are heard. LUNGS: Shows bilateral prolonged expiration and occasional rhonchi consistent with COPD exacerbation. ABDOMEN: Soft, nontender. No organomegaly. No fluid. Bowel sounds are plus and normal. EXTREMITIES: No edema. No calf swelling. No tenderness. No acute ischemia. CENTRAL NERVOUS SYSTEM: Essentially unchanged. There is no sign of any acute gross focal, motor, sensory or neurological deficits. DIAGNOSTIC DATA: Available diagnostic data reviewed. Telemetry monitoring does not show any significant arrhythmias. The patient's WBC count is 15 and BUN is 65, creatinine also is 3.8. ADMITTING IMPRESSION: Acute exacerbation of chronic obstructive pulmonary disease, hypertension, coronary artery disease, congestive heart failure, chronic renal insufficiency, type 2 diabetes with hyperglycemia. PLAN: As ordered. Case and plan discussed with the patient. Manpreet Austin MD
[2018-01-20] MEDS: Pravastatin Sodium 40 MG TAB PO SCH (21:05)
[2018-01-21] MEDS: Albuterol-Ipratrop 3 mg / 0.5 (3 ml) UD INH SCH ×6 (03:26→23:45)
[2018-01-21] MEDS: Oxycodone/Acetaminophen 5/325 mg Tab PO PRN (03:42)
[2018-01-21 05:45] LABS: HEMOGLOBIN 9.6 g/dL (12.0-16.0); MEAN CORPUSCULAR HEMOGLOBIN 29.6 pg (27.0-31.0); MEAN CORPUSCULAR HGB CONC 32.1 g/dL (33.0-37.0); RBC 3.26 Mil/uL (3.80-5.20); RED CELL DISTRIBUTION WIDTH 14.9 % (11.5-14.5); WHITE BLOOD COUNT 21.6 K/uL (4.8-10.8)
[2018-01-21 06:10] LABS: ALBUMIN 3.6 g/dL (3.5-5.0)
[2018-01-21] MEDS: Insulin Lispro (humaLOG) 100 Units/ml Inj SC SCH ×4 (06:32→22:25)
[2018-01-21] MEDS ORDERED: Sod Polystyrene Sulf 15 gm/60 ml Susp PO ONE (08:50)
[2018-01-21] MEDS: Enoxaparin 30 mg Syringe SC SCH (09:08)
[2018-01-21] MEDS: Pantoprazole 40 mg EC Tab PO SCH (09:10)
[2018-01-21] MEDS: Cholecalciferol 1,000 INTLU TAB PO SCH (09:15)
[2018-01-21] MEDS: Moxifloxacin IV 400mg/250ml NS 400 MG/250 ML BAG IVPB SCH (09:46)
[2018-01-21] MEDS: MethylPREDNISolone 40 mg Vial IVP SCH ×2 (09:56→16:43)
--- NOTE | 2018-01-21 12:55 | PN ---
DATE: 01/21/2018 SUBJECTIVE: The patient is seen and examined. Interim events noted. Consults noted and appreciated. Pulmonary followup and intervention noted and appreciated. The patient remains in progressive care unit with telemetry monitoring. The patient feels a little better. No chest pain. Does have exertional shortness of breath. Coughing improved. PHYSICAL EXAMINATION: GENERAL; The patient is in no acute distress. VITAL SIGNS: Stable. HEART: S1 and S2, normal and regular. LUNGS: Good bilateral air exchange. No wheezing. Occasional rhonchi. No rales. ABDOMEN: Soft, nontender. No organomegaly. No fluid. Bowel sounds are present and normal. EXTREMITIES: No edema and no calf swelling or tenderness. No acute ischemia. WARP PREPARER: Exam is essentially unchanged. DIAGNOSTIC DATA: Available diagnostic data reviewed. Telemetry monitoring does not reveal significant arrhythmias. ASSESSMENT AND PLAN: Overall, the patient is slowly improving. Plan as ordered. Case and plan discussed with the patient. Manpreet Austin MD
--- NOTE | 2018-01-21 13:27 | CT ---
Date of service: 01/21/2018 PROCEDURE: CT Chest without contrast HISTORY: COPD Exacerbation, PNA COMPARISON: Noncontrast chest CT 02/17/2016. TECHNIQUE: Contiguous axial images were obtained through the chest without intravenous contrast enhancement. Sagittal and coronal reconstructions were performed. Radiation dose: Total exam DLP = 474.15 mGy-cm. This CT exam was performed using one or more of the following dose reduction techniques: Automated exposure control, adjustment of the mA and/or kV according to patient size, and/or use of iterative reconstruction technique. FINDINGS: LUNGS: There is interval infiltrate scattered at the bilateral upper and lower lobes and right middle lobe with bilateral basilar atelectasis underlying at the lower lobes. Limited bilateral basilar compression atelectasis also identified. Central airways appear grossly clear though some laxity of the muscular segment posteriorly seen at the inferior esophagus resulting in mild narrowing 4-5 cm above the adelso. No gross pulmonary mass identified in well aerated lung sub segments. A calcified granuloma is reiterated at the right lower lobe. MEDIASTINUM: There is calcified atheromatous plaque at the thoracic aorta. The ascending segment is dilated to 4.5 cm taper to a normal caliber 3.1 cm in the proximal arch. Further, the pulmonary artery appears dilated to 3.6 cm suspicious for pulmonary artery hypertension. Further clinical correlation is advised. Mild cardiomegaly is evident with extensive coronary artery atherosclerosis. No pulmonary vascular congestion. Limited paratracheal lymphadenopathy is appreciate including 1.7 x 1.2 cm inferior left paratracheal lymph node. The thoracic inlet is remarkable for inhomogeneous enhancement at the right lobe thyroid gland with the overall gland appearing a trophic. PLEURA: Mild right and minimal left pleural effusions are identified. No pericardial effusion. No pneumothorax bilaterally. BONES: Chronic moderate to severe compression fracture of T12 is reiterated with no interval of the thoracic spine fracture appreciable. UPPER ABDOMEN: Gallbladder is mildly distended with calculi in the dependent portion minimally, versus sludge and calculi. OTHER FINDINGS: There is chronic esophageal disc dilatation appreciated, potentially slightly increased in the interval. IMPRESSION: 1. Interval multifocal pneumonia identified with likely limited bilateral dependent/compressive atelectasis at the lower lobes. 2. Mild right and minimal left pleural effusions are identified. No pericardial effusion. 3. Chronic esophageal dilatation identified. 4. Minimal increase in mild ascending thoracic aortic aneurysm up to 4.5 cm greatest dimension at this time. Stable cardiomegaly. Main pulmonary artery dilatation is reiterated raising question of pulmonary artery hypertension. Clinically correlate.
--- NOTE | 2018-01-21 18:04 | CP.PCM.PN ---
Subjective - Date & Time of Evaluation Date of Evaluation: 01/21/18 - Subjective Subjective: F/U PNA, COPD Exacerbation. Pt with SOB without O2, LALA, chest congestion. Objective - Vital Signs/Intake and Output Vital Signs (last 24 hours): Temp Pulse Resp BP Pulse Ox 97.8 F 78 16 103/63 92 L 01/21/18 15:54 01/21/18 15:54 01/21/18 15:54 01/21/18 15:54 01/21/18 15:54 - Medications Medications: Current Medications Acetaminophen (Tylenol 325mg Tab) 650 mg PO Q6 PRN PRN Reason: Pain, Mild (1-3) Albuterol/Ipratropium (Duoneb 3 Mg/0.5 Mg (3 Ml) Ud) 3 ml INH RQ4 [facility] Last Admin: 01/21/18 15:45 Dose: 3 ml Amlodipine Besylate (Norvasc) 10 mg PO DAILY [facility] Last Admin: 01/21/18 09:11 Dose: 10 mg Aspirin (Ecotrin) 81 mg PO DAILY [facility] Last Admin: 01/20/18 09:22 Dose: 81 mg Bisoprolol Fumarate (Zebeta) 5 mg PO DAILY [facility] Last Admin: 01/21/18 10:51 Dose: 5 mg Cholecalciferol (Vitamin D) 1,000 intlu PO DAILY [facility] Last Admin: 01/21/18 09:15 Dose: 1,000 intlu Enoxaparin Sodium (Lovenox) 30 mg SC DAILY [facility]; Protocol Last Admin: 01/21/18 09:08 Dose: 30 mg Ferrous Gluconate (Fergon) 324 mg PO DAILY [facility] Last Admin: 01/21/18 09:10 Dose: 324 mg Furosemide (Lasix) 40 mg PO DAILY [facility] Last Admin: 01/21/18 09:34 Dose: Not Given Glipizide (Glucotrol) 10 mg PO DAILY [facility] Last Admin: 01/21/18 09:10 Dose: 10 mg Moxifloxacin HCl (Avelox Iv 400mg/250ml Ns) 400 mg in 250 mls @ 250 mls/hr IVPB DAILY [facility]; Protocol Last Admin: 01/21/18 09:46 Dose: 250 mls/hr Insulin Human Lispro (Humalog) 0 units SC ACHS [facility]; Protocol Last Admin: 01/21/18 16:35 Dose: 4 units Isosorbide Mononitrate (Imdur Er) 30 mg PO DAILY [facility] Last Admin: 01/21/18 09:09 Dose: 30 mg Losartan Potassium (Cozaar) 50 mg PO DAILY [facility] Last Admin: 01/20/18 09:26 Dose: 50 mg Methylprednisolone (Solu-Medrol) 40 mg IVP Q8 [facility] Last Admin: 01/21/18 16:43 Dose: 40 mg Oxycodone/Acetaminophen (Percocet 5/325 Mg Tab) 1 tab PO Q12 PRN PRN Reason: Pain, severe (8-10) Stop: 01/23/18 06:59 Last Admin: 01/21/18 03:42 Dose: 1 tab Pantoprazole Sodium (Protonix Ec Tab) 40 mg PO DAILY [facility] Last Admin: 01/21/18 09:10 Dose: 40 mg Pravastatin Sodium (Pravachol) 40 mg PO HS [facility] Last Admin: 01/20/18 21:05 Dose: 40 mg Sitagliptin Phosphate (Januvia) 100 mg PO DAILY [facility] Last Admin: 01/21/18 09:07 Dose: 100 mg Sucralfate (Carafate Tab) 1 gm PO BID [facility] Last Admin: 01/21/18 16:32 Dose: 1 gm - Labs Labs: 01/21/18 04:20 01/21/18 04:20 PT 11.0 Seconds (9.8-13.1) 01/19/18 23:03 INR 1.0 01/19/18 23:03 APTT 27.2 Seconds (25.6-37.1) 01/19/18 23:03 - Constitutional Appears: No Acute Distress - Head Exam Head Exam: NORMAL INSPECTION - Eye Exam Eye Exam: PERRL - ENT Exam ENT Exam: Normal Exam - Neck Exam Neck Exam: Normal Inspection - Respiratory Exam Respiratory Exam: Decreased Breath Sounds (at bases), Rhonchi (b/l), Wheezes (b/l) - Cardiovascular Exam Cardiovascular Exam: REGULAR RHYTHM - GI/Abdominal Exam GI & Abdominal Exam: Soft, Normal Bowel Sounds - Extremities Exam Additional comments: Edema BLE - Neurological Exam Neurological Exam: Alert, Oriented x3 - Psychiatric Exam Psychiatric exam: Normal Mood - Skin Skin Exam: Warm Assessment and Plan (1) Pneumonia Status: Acute (2) COPD exacerbation Status: Acute - Assessment and Plan (Free Text) Plan: Continue Avelox IV, Duoneb, Solu-Medrol and rest of Tx.
--- NOTE | 2018-01-21 22:26 | CP.PCM.PN ---
Subjective - Date & Time of Evaluation Date of Evaluation: 01/21/18 Time of Evaluation: 12:15 - Subjective Subjective: 77 yo HF with pmh/o htn, dm, cad, chf, back pain? DJD/ spinal stenosis, copd, ckd was admitted with weakness, sob, cough increased bun/cr with s.cr about 3- 3.5 to telemetry and then transferred to TCU for physical therapy. now pt is transferred back to tele. c/o RUQ pain, nausea, decreased po intake, elevated wbc Objective - Vital Signs/Intake and Output Vital Signs (last 24 hours): Temp Pulse Resp BP Pulse Ox 97.7 F 82 16 114/66 100 01/21/18 20:03 01/21/18 20:03 01/21/18 20:03 01/21/18 20:03 01/21/18 20:03 - Medications Medications: Current Medications Acetaminophen (Tylenol 325mg Tab) 650 mg PO Q6 PRN PRN Reason: Pain, Mild (1-3) Albuterol/Ipratropium (Duoneb 3 Mg/0.5 Mg (3 Ml) Ud) 3 ml INH RQ4 [facility] Last Admin: 01/21/18 19:54 Dose: 3 ml Amlodipine Besylate (Norvasc) 10 mg PO DAILY [facility] Last Admin: 01/21/18 09:11 Dose: 10 mg Aspirin (Ecotrin) 81 mg PO DAILY [facility] Last Admin: 01/20/18 09:22 Dose: 81 mg Bisoprolol Fumarate (Zebeta) 5 mg PO DAILY [facility] Last Admin: 01/21/18 10:51 Dose: 5 mg Cholecalciferol (Vitamin D) 1,000 intlu PO DAILY [facility] Last Admin: 01/21/18 09:15 Dose: 1,000 intlu Enoxaparin Sodium (Lovenox) 30 mg SC DAILY [facility]; Protocol Last Admin: 01/21/18 09:08 Dose: 30 mg Ferrous Gluconate (Fergon) 324 mg PO DAILY [facility] Last Admin: 01/21/18 09:10 Dose: 324 mg Furosemide (Lasix) 40 mg PO DAILY [facility] Last Admin: 01/21/18 09:34 Dose: Not Given Glipizide (Glucotrol) 10 mg PO DAILY [facility] Last Admin: 01/21/18 09:10 Dose: 10 mg Moxifloxacin HCl (Avelox Iv 400mg/250ml Ns) 400 mg in 250 mls @ 250 mls/hr IVPB DAILY [facility]; Protocol Last Admin: 01/21/18 09:46 Dose: 250 mls/hr Insulin Human Lispro (Humalog) 0 units SC ACHS [facility]; Protocol Last Admin: 01/21/18 16:35 Dose: 4 units Isosorbide Mononitrate (Imdur Er) 30 mg PO DAILY [facility] Last Admin: 01/21/18 09:09 Dose: 30 mg Losartan Potassium (Cozaar) 50 mg PO DAILY [facility] Last Admin: 01/20/18 09:26 Dose: 50 mg Methylprednisolone (Solu-Medrol) 40 mg IVP Q8 [facility] Last Admin: 01/21/18 16:43 Dose: 40 mg Oxycodone/Acetaminophen (Percocet 5/325 Mg Tab) 1 tab PO Q12 PRN PRN Reason: Pain, severe (8-10) Stop: 01/23/18 06:59 Last Admin: 01/21/18 03:42 Dose: 1 tab Pantoprazole Sodium (Protonix Ec Tab) 40 mg PO DAILY [facility] Last Admin: 01/21/18 09:10 Dose: 40 mg Pravastatin Sodium (Pravachol) 40 mg PO HS [facility] Last Admin: 01/20/18 21:05 Dose: 40 mg Sitagliptin Phosphate (Januvia) 100 mg PO DAILY [facility] Last Admin: 01/21/18 09:07 Dose: 100 mg Sucralfate (Carafate Tab) 1 gm PO BID [facility] Last Admin: 01/21/18 16:32 Dose: 1 gm - Labs Labs: 01/21/18 04:20 01/21/18 04:20 PT 11.0 Seconds (9.8-13.1) 01/19/18 23:03 INR 1.0 01/19/18 23:03 APTT 27.2 Seconds (25.6-37.1) 01/19/18 23:03 - Constitutional Appears: Well, Non-toxic - Head Exam Head Exam: ATRAUMATIC, NORMAL INSPECTION, NORMOCEPHALIC - Eye Exam Eye Exam: EOMI, Normal appearance, PERRL Pupil Exam: NORMAL ACCOMODATION - ENT Exam ENT Exam: Mucous Membranes Moist - Neck Exam Neck Exam: Full ROM - Respiratory Exam Respiratory Exam: Clear to Ausculation Bilateral, NORMAL BREATHING PATTERN - Cardiovascular Exam Cardiovascular Exam: REGULAR RHYTHM, +S1, +S2 - GI/Abdominal Exam GI & Abdominal Exam: Soft, Tenderness, Normal Bowel Sounds Additional comments: RUQ tenderness, no guarding, no rigidity Assessment and Plan - Assessment and Plan (Free Text) Assessment: 77 yo HF with pmh/o htn, dm, chf, cad, ckd, copd , djd/ ? spinal stenosis with RUQ pain, , increased bun/cr, decreased po intake, high wbc 1. CAMPBELL on ckd-3 2. RUQ pain r/o acute jass 3. cholelithiasis 4. HTN check urine lytes, osm ,cr start ivf 1/2 ns at 70 ml/hr check u/s Gb check HIDA scan daily bmp consider ID consult, iv abx .
[2018-01-21] MEDS: Pravastatin Sodium 40 MG TAB PO SCH (22:27)
[2018-01-22] MEDS: MethylPREDNISolone 40 mg Vial IVP SCH ×3 (00:54→16:50)
[2018-01-22] MEDS: Sodium Chloride 0.45% 1,000 ML IV SCH (00:55)
[2018-01-22] MEDS: Albuterol-Ipratrop 3 mg / 0.5 (3 ml) UD INH SCH ×6 (04:55→23:16)
[2018-01-22] MEDS: Oxycodone/Acetaminophen 5/325 mg Tab PO PRN ×2 (05:14→21:16)
[2018-01-22 06:04] LABS: HEMOGLOBIN 10.2 g/dL (12.0-16.0); MEAN CELL VOLUME 90.5 fl (81.0-99.0); MEAN CORPUSCULAR HEMOGLOBIN 29.9 pg (27.0-31.0); RBC 3.4 Mil/uL (3.80-5.20); RED CELL DISTRIBUTION WIDTH 14.6 % (11.5-14.5); WHITE BLOOD COUNT 25.3 K/uL (4.8-10.8)
[2018-01-22 06:14] LABS: ALBUMIN 3.6 g/dL (3.5-5.0); CALCIUM 7.7 mg/dL (8.4-10.2)
[2018-01-22] MEDS: Enoxaparin 30 mg Syringe SC SCH (08:55)
[2018-01-22] MEDS: Pantoprazole 40 mg EC Tab PO SCH (08:55)
[2018-01-22] MEDS: Cholecalciferol 1,000 INTLU TAB PO SCH (08:56)
[2018-01-22] MEDS: Moxifloxacin IV 400mg/250ml NS 400 MG/250 ML BAG IVPB SCH (08:58)
[2018-01-22] MEDS: Insulin Lispro (humaLOG) 100 Units/ml Inj SC SCH ×4 (08:59→22:56)
--- NOTE | 2018-01-22 09:58 | US ---
Date of service: 01/22/2018 HISTORY: RUQ pain r/o acute jass COMPARISON: None. TECHNIQUE: Grayscale imaging was performed. FINDINGS: LIVER: Measures 15.6 cm in length. Normal echogenicity of the liver parenchyma. No mass. No intrahepatic bile duct dilatation. GALLBLADDER: There are small gallstones. No wall thickening or pericholecystic fluid. The sonographic Madrid's sign is negative. COMMON BILE DUCT: Measures 8.0 mm. No stones. No dilatation. PANCREAS: Unremarkable as visualized. No mass. No ductal dilatation. RIGHT KIDNEY: Measures 10.2 cm in length. Normal echogenicity. No calculus, mass, or hydronephrosis. AORTA: No aneurysmal dilatation. IVC: Unremarkable. OTHER FINDINGS: There is a small right pleural effusion. IMPRESSION: Cholelithiasis. Small right pleural effusion.
[2018-01-22] MEDS ORDERED: Sodium Chloride 3% for Inhalation 4 ML VIAL.NEB IH PRN (10:37)
--- NOTE | 2018-01-22 10:37 | CP.PCM.CON ---
History of Present Illness - History of Present Illness History of Present Illness: 77 year old male transferred to ED from TCU for medical assessment of shortness of breath for the last 48 hours. Patient is currently receiving treatment for pneumonia Feels weak coughing and SOB with exertion Denies chest pain CXR + for multifocal infil;rates Cultures are pending - Medical History PMH: Anemia, Anxiety, Arthritis, Atrial Fibrillation, Back Problems (had recent injury/fall and was hospitalized for back pain(no findings)), Bronchitis, CAD, Cardia Arrhythmia, CHF, COPD, Depression, Diabetes (type II), Gastritis, Gall Bladder Disease, Hepatitis (B), HTN, Hypercholesterolemia, Hyperlipidemia, Osteoporosis, Peripheral Edema, Pneumonia, Chronic Kidney Disease Denies: Asthma, HIV, End Stage Renal Disease - Surgical History Surgical History: Cholecystectomy, Coronary Stent, (x 2) Review of Systems - Review of Systems All systems: reviewed and no additional remarkable complaints except Past Patient History - Past Medical History & Family History Past Medical History?: Yes - Past Social History Smoking Status: Never Smoked Alcohol: None Drugs: Denies Home Situation {Lives}: Alone - CARDIAC Hx Cardiac Disorders: Yes Hx Atrial Fibrillation: Yes Hx Cardia Arrhythmia: Yes Hx Congestive Heart Failure: Yes Hx Hypercholesterolemia: Yes Hx Hypertension: Yes Hx Peripheral Edema: Yes - PULMONARY Hx Respiratory Disorders: Yes Hx Asthma: No Hx Bronchitis: Yes Hx Chronic Obstructive Pulmonary Disease (COPD): Yes Hx Pneumonia: Yes - NEUROLOGICAL Hx Neurological Disorder: No - HEENT Hx HEENT Problems: Yes Hx Cataracts: Yes - RENAL Hx Chronic Kidney Disease: Yes - ENDOCRINE/METABOLIC Hx Endocrine Disorders: Yes Hx Diabetes Mellitus Type 2: Yes - HEMATOLOGICAL/ONCOLOGICAL Hx Blood Disorders: Yes Hx Anemia: Yes Hx Human Immunodeficiency Virus (HIV): No - INTEGUMENTARY Hx Dermatological Problems: No - MUSCULOSKELETAL/RHEUMATOLOGICAL Hx Musculoskeletal Disorders: Yes Hx Arthritis: Yes Hx Osteoporosis: Yes - GASTROINTESTINAL Hx Gall Bladder Disease: Yes Hx Gastritis: Yes - GENITOURINARY/GYNECOLOGICAL Hx Genitourinary Disorders: No - PSYCHIATRIC Hx Psychophysiologic Disorder: Yes Hx Anxiety: Yes Hx Depression: Yes - SURGICAL HISTORY Hx Surgeries: Yes Hx Cholecystectomy: Yes Hx Coronary Stent: Yes - ANESTHESIA Hx Anesthesia: Yes Hx Anesthesia Reactions: No Hx Malignant Hyperthermia: No Meds Allergies/Adverse Reactions: Allergies Allergy/AdvReac Type Severity Reaction Status Date / Time alprazolam [From Xanax] Allergy SWELLING Verified 01/14/18 15:19 hydromorphone HCl Allergy RASH Verified 01/14/18 15:19 [From Dilaudid] zolpidem tartrate Allergy RASH Verified 01/14/18 15:19 [From Ambien] - Medications Medications: Current Medications Acetaminophen (Tylenol 325mg Tab) 650 mg PO Q6 PRN PRN Reason: Pain, Mild (1-3) Albuterol/Ipratropium (Duoneb 3 Mg/0.5 Mg (3 Ml) Ud) 3 ml INH RQ4 [facility] Last Admin: 01/22/18 07:51 Dose: 3 ml Amlodipine Besylate (Norvasc) 10 mg PO DAILY [facility] Last Admin: 01/22/18 08:56 Dose: 10 mg Aspirin (Ecotrin) 81 mg PO DAILY [facility] Last Admin: 01/20/18 09:22 Dose: 81 mg Bisoprolol Fumarate (Zebeta) 5 mg PO DAILY [facility] Last Admin: 01/22/18 08:56 Dose: 5 mg Cholecalciferol (Vitamin D) 1,000 intlu PO DAILY [facility] Last Admin: 01/22/18 08:56 Dose: 1,000 intlu Enoxaparin Sodium (Lovenox) 30 mg SC DAILY [facility]; Protocol Last Admin: 01/22/18 08:55 Dose: 30 mg Ferrous Gluconate (Fergon) 324 mg PO DAILY [facility] Last Admin: 01/22/18 08:56 Dose: 324 mg Furosemide (Lasix) 40 mg PO DAILY [facility] Last Admin: 01/21/18 09:34 Dose: Not Given Glipizide (Glucotrol) 10 mg PO DAILY [facility] Last Admin: 01/22/18 08:55 Dose: 10 mg Moxifloxacin HCl (Avelox Iv 400mg/250ml Ns) 400 mg in 250 mls @ 250 mls/hr IVPB DAILY [facility]; Protocol Last Admin: 01/22/18 08:58 Dose: 250 mls/hr Sodium Chloride (Sodium Chloride 0.45%) 1,000 mls @ 70 mls/hr IV .[id number] [facility] Stop: 01/22/18 22:34 Last Admin: 01/22/18 00:55 Dose: 70 mls/hr Insulin Human Lispro (Humalog) 0 units SC ACHS [facility]; Protocol Last Admin: 01/22/18 08:59 Dose: 2 units Isosorbide Mononitrate (Imdur Er) 30 mg PO DAILY [facility] Last Admin: 01/22/18 08:55 Dose: 30 mg Losartan Potassium (Cozaar) 50 mg PO DAILY [facility] Last Admin: 01/20/18 09:26 Dose: 50 mg Methylprednisolone (Solu-Medrol) 40 mg IVP Q8 [facility] Last Admin: 01/22/18 08:56 Dose: 40 mg Oxycodone/Acetaminophen (Percocet 5/325 Mg Tab) 1 tab PO Q12 PRN PRN Reason: Pain, severe (8-10) Stop: 01/23/18 06:59 Last Admin: 01/22/18 05:14 Dose: 1 tab Pantoprazole Sodium (Protonix Ec Tab) 40 mg PO DAILY [facility] Last Admin: 01/22/18 08:55 Dose: 40 mg Pravastatin Sodium (Pravachol) 40 mg PO HS [facility] Last Admin: 01/21/18 22:27 Dose: 40 mg Sitagliptin Phosphate (Januvia) 100 mg PO DAILY [facility] Last Admin: 01/22/18 08:56 Dose: 100 mg Sucralfate (Carafate Tab) 1 gm PO BID [facility] Last Admin: 01/22/18 08:56 Dose: 1 gm Physical Exam - Constitutional Appears: In Acute Distress, Chronically Ill - Head Exam Head Exam: ATRAUMATIC - Eye Exam Eye Exam: absent: Scleral icterus - ENT Exam ENT Exam: Mucous Membranes Dry, Normal External Ear Exam - Neck Exam Neck exam: Negative for: Lymphadenopathy - Respiratory Exam Respiratory Exam: Decreased Breath Sounds, Prolonged Expiratory Phase, Rales, Rhonchi - Cardiovascular Exam Cardiovascular Exam: REGULAR RHYTHM, +S1, +S2 - GI/Abdominal Exam GI & Abdominal Exam: Diminished Bowel Sounds, Distended, Soft. absent: Tenderness - Rectal Exam Rectal Exam: Deferred - Exam Exam: NORMAL INSPECTION - Extremities Exam Extremities exam: Positive for: pedal pulses present. Negative for: calf tenderness, pedal edema, tenderness - Back Exam Back exam: absent: CVA tenderness (L), CVA tenderness (R) - Neurological Exam Neurological exam: Alert, Altered, CN II-XII Intact - Psychiatric Exam Psychiatric exam: Depressed - Skin Skin Exam: Dry Results - Vital Signs Recent Vital Signs: Last Vital Signs Temp 97.7 F 01/22/18 08:00 Pulse 82 01/22/18 08:56 Resp 18 01/22/18 08:00 BP 117/65 01/22/18 08:56 Pulse Ox 95 01/22/18 08:00 - Labs Result Diagrams: 01/22/18 05:15 01/23/18 05:15 Labs: Laboratory Results - last 24 hr 01/21/18 01/21/18 01/21/18 05:20 11:21 16:28 WBC RBC Hgb Hct MCV MCH MCHC RDW Plt Count Sodium Potassium Chloride Carbon Dioxide Anion Gap BUN Creatinine Est GFR ( Amer) Est GFR (Non-Af Amer) POC Glucose (mg/dL) 277 H 266 H 256 H Random Glucose Calcium Total Bilirubin AST ALT Alkaline Phosphatase Total Protein Albumin Globulin Albumin/Globulin Ratio Ur Random Creatinine 01/21/18 01/21/18 01/22/18 21:29 22:28 05:15 WBC 25.3 H RBC 3.40 L Hgb 10.2 L Hct 30.8 L MCV 90.5 MCH 29.9 MCHC 33.0 RDW 14.6 H Plt Count 426 H Sodium Potassium Chloride Carbon Dioxide Anion Gap BUN Creatinine Est GFR ( Amer) Est GFR (Non-Af Amer) POC Glucose (mg/dL) 359 H Random Glucose Calcium Total Bilirubin AST ALT Alkaline Phosphatase Total Protein Albumin Globulin Albumin/Globulin Ratio Ur Random Creatinine 113.3 01/22/18 01/22/18 05:15 05:17 WBC RBC Hgb Hct MCV MCH MCHC RDW Plt Count Sodium 129 L Potassium 4.6 Chloride 97 L Carbon Dioxide 16 L Anion Gap 21 H BUN 80 H Creatinine 3.9 H Est GFR ( Amer) 13 Est GFR (Non-Af Amer) 11 POC Glucose (mg/dL) 174 H Random Glucose 177 H Calcium 7.7 L Total Bilirubin 0.2 AST 26 ALT 28 Alkaline Phosphatase 81 Total Protein 7.3 Albumin 3.6 Globulin 3.7 Albumin/Globulin Ratio 1.0 Ur Random Creatinine Assessment & Plan (1) Pneumonia Status: Acute Priority: High (2) COPD (chronic obstructive pulmonary disease) Status: Chronic - Assessment and Plan (Free Text) Assessment: await cultures concern for MDRO's orders written
--- NOTE | 2018-01-22 12:07 | CP.PCM.CON ---
<Hilary Gomez - Last Filed: 01/22/18 12:13> History of Present Illness - History of Present Illness History of Present Illness: GI Fellow PGY5 Consult Note This is a 77 year old Female with PMHx of HTN, HLD, CAD, CHF, COPD, CKD, NIDDM, gastritis pt admitted for worsening PNA. Pt has had MEDICAL DOCTOR MD called for chest pain, SOB and CT imaging showing BL PNA. GI was consulted for dilated distal esophagus on CT chest. Pt reports intermittent GERD but denies dysphagia or food bolus. No prior EGD. Pt did have a colonoscopy 2016 with rectal bleeding and found to have diverticular bleed and poor prep. ROS: all 12 systems reviewed and negative except as mentioned in HPI PMHx: HTN, HLD, CAD, CHF, COPD, CKD, NIDDM, gastritis SurgHx: tonsillectomy, hysterectomy, x 2 Social Hx: denies ETOH, and illicit drug use; hx of smoking in the past Past Patient History - Past Medical History & Family History Past Medical History?: Yes - Past Social History Smoking Status: Never Smoked Alcohol: None Drugs: Denies Home Situation {Lives}: Alone - CARDIAC Hx Cardiac Disorders: Yes Hx Atrial Fibrillation: Yes Hx Cardia Arrhythmia: Yes Hx Congestive Heart Failure: Yes Hx Hypercholesterolemia: Yes Hx Hypertension: Yes Hx Peripheral Edema: Yes - PULMONARY Hx Respiratory Disorders: Yes Hx Asthma: No Hx Bronchitis: Yes Hx Chronic Obstructive Pulmonary Disease (COPD): Yes Hx Pneumonia: Yes - NEUROLOGICAL Hx Neurological Disorder: No - HEENT Hx HEENT Problems: Yes Hx Cataracts: Yes - RENAL Hx Chronic Kidney Disease: Yes - ENDOCRINE/METABOLIC Hx Endocrine Disorders: Yes Hx Diabetes Mellitus Type 2: Yes - HEMATOLOGICAL/ONCOLOGICAL Hx Blood Disorders: Yes Hx Anemia: Yes Hx Human Immunodeficiency Virus (HIV): No - INTEGUMENTARY Hx Dermatological Problems: No - MUSCULOSKELETAL/RHEUMATOLOGICAL Hx Musculoskeletal Disorders: Yes Hx Arthritis: Yes Hx Osteoporosis: Yes - GASTROINTESTINAL Hx Gall Bladder Disease: Yes Hx Gastritis: Yes - GENITOURINARY/GYNECOLOGICAL Hx Genitourinary Disorders: No - PSYCHIATRIC Hx Psychophysiologic Disorder: Yes Hx Anxiety: Yes Hx Depression: Yes - SURGICAL HISTORY Hx Surgeries: Yes Hx Cholecystectomy: Yes Hx Coronary Stent: Yes - ANESTHESIA Hx Anesthesia: Yes Hx Anesthesia Reactions: No Hx Malignant Hyperthermia: No Meds Allergies/Adverse Reactions: Allergies Allergy/AdvReac Type Severity Reaction Status Date / Time alprazolam [From Xanax] Allergy SWELLING Verified 01/14/18 15:19 hydromorphone HCl Allergy RASH Verified 01/14/18 15:19 [From Dilaudid] zolpidem tartrate Allergy RASH Verified 01/14/18 15:19 [From Ambien] - Medications Medications: Current Medications Acetaminophen (Tylenol 325mg Tab) 650 mg PO Q6 PRN PRN Reason: Pain, Mild (1-3) Albuterol/Ipratropium (Duoneb 3 Mg/0.5 Mg (3 Ml) Ud) 3 ml INH RQ4 [facility] Last Admin: 01/22/18 11:38 Dose: 3 ml Amlodipine Besylate (Norvasc) 10 mg PO DAILY [facility] Last Admin: 01/22/18 08:56 Dose: 10 mg Aspirin (Ecotrin) 81 mg PO DAILY [facility] Last Admin: 01/20/18 09:22 Dose: 81 mg Bisoprolol Fumarate (Zebeta) 5 mg PO DAILY [facility] Last Admin: 01/22/18 08:56 Dose: 5 mg Cholecalciferol (Vitamin D) 1,000 intlu PO DAILY [facility] Last Admin: 01/22/18 08:56 Dose: 1,000 intlu Enoxaparin Sodium (Lovenox) 30 mg SC DAILY [facility]; Protocol Last Admin: 01/22/18 08:55 Dose: 30 mg Ferrous Gluconate (Fergon) 324 mg PO DAILY [facility] Last Admin: 01/22/18 08:56 Dose: 324 mg Furosemide (Lasix) 40 mg PO DAILY [facility] Last Admin: 01/21/18 09:34 Dose: Not Given Glipizide (Glucotrol) 10 mg PO DAILY [facility] Last Admin: 01/22/18 08:55 Dose: 10 mg Moxifloxacin HCl (Avelox Iv 400mg/250ml Ns) 400 mg in 250 mls @ 250 mls/hr IVPB DAILY [facility]; Protocol Last Admin: 01/22/18 08:58 Dose: 250 mls/hr Sodium Chloride (Sodium Chloride 0.45%) 1,000 mls @ 70 mls/hr IV .[id number] [facility] Stop: 01/22/18 22:34 Last Admin: 01/22/18 00:55 Dose: 70 mls/hr Meropenem 500 mg/ Sodium (Chloride) 100 mls @ 100 mls/hr IVPB Q8 [facility]; Protocol Vancomycin HCl 1 gm/ Sodium (Chloride) 250 mls @ 166.667 mls/hr IVPB ONCE ONE; Protocol Stop: 01/22/18 12:11 Insulin Human Lispro (Humalog) 0 units SC ACHS [facility]; Protocol Last Admin: 01/22/18 08:59 Dose: 2 units Isosorbide Mononitrate (Imdur Er) 30 mg PO DAILY [facility] Last Admin: 01/22/18 08:55 Dose: 30 mg Losartan Potassium (Cozaar) 50 mg PO DAILY [facility] Last Admin: 01/20/18 09:26 Dose: 50 mg Methylprednisolone (Solu-Medrol) 40 mg IVP Q8 [facility] Last Admin: 01/22/18 08:56 Dose: 40 mg Oxycodone/Acetaminophen (Percocet 5/325 Mg Tab) 1 tab PO Q12 PRN PRN Reason: Pain, severe (8-10) Stop: 01/23/18 06:59 Last Admin: 01/22/18 05:14 Dose: 1 tab Pantoprazole Sodium (Protonix Ec Tab) 40 mg PO DAILY [facility] Last Admin: 01/22/18 08:55 Dose: 40 mg Pravastatin Sodium (Pravachol) 40 mg PO HS [facility] Last Admin: 01/21/18 22:27 Dose: 40 mg Sitagliptin Phosphate (Januvia) 100 mg PO DAILY [facility] Last Admin: 01/22/18 08:56 Dose: 100 mg Sucralfate (Carafate Tab) 1 gm PO BID [facility] Last Admin: 01/22/18 08:56 Dose: 1 gm Physical Exam - Constitutional Appears: Chronically Ill - Head Exam Head Exam: ATRAUMATIC, NORMAL INSPECTION - Eye Exam Eye Exam: EOMI, Normal appearance Pupil Exam: PERRL - ENT Exam ENT Exam: Mucous Membranes Dry - Respiratory Exam Respiratory Exam: Rales, Rhonchi - Cardiovascular Exam Cardiovascular Exam: RRR, +S1, +S2 - GI/Abdominal Exam GI & Abdominal Exam: Normal Bowel Sounds, Soft. absent: Distended, Firm, Guarding, Organomegaly, Tenderness - Extremities Exam Extremities exam: Positive for: full ROM - Neurological Exam Neurological exam: Alert, Oriented x3 - Psychiatric Exam Psychiatric exam: Normal Affect, Normal Mood - Skin Skin Exam: Dry, Intact, Normal Color, Warm Results - Vital Signs Recent Vital Signs: Last Vital Signs Temp 97.7 F 01/22/18 08:00 Pulse 82 01/22/18 09:00 Resp 18 01/22/18 08:00 BP 117/65 01/22/18 08:56 Pulse Ox 95 01/22/18 08:00 - Labs Result Diagrams: 01/22/18 05:15 01/22/18 05:15 Labs: Laboratory Results - last 24 hr 01/21/18 01/21/18 01/21/18 16:28 21:29 22:28 WBC RBC Hgb Hct MCV MCH MCHC RDW Plt Count Sodium Potassium Chloride Carbon Dioxide Anion Gap BUN Creatinine Est GFR ( Amer) Est GFR (Non-Af Amer) POC Glucose (mg/dL) 256 H 359 H Random Glucose Calcium Total Bilirubin AST ALT Alkaline Phosphatase Total Protein Albumin Globulin Albumin/Globulin Ratio Ur Random Creatinine 113.3 01/22/18 01/22/18 01/22/18 05:15 05:15 05:17 WBC 25.3 H RBC 3.40 L Hgb 10.2 L Hct 30.8 L MCV 90.5 MCH 29.9 MCHC 33.0 RDW 14.6 H Plt Count 426 H Sodium 129 L Potassium 4.6 Chloride 97 L Carbon Dioxide 16 L Anion Gap 21 H BUN 80 H Creatinine 3.9 H Est GFR ( Amer) 13 Est GFR (Non-Af Amer) 11 POC Glucose (mg/dL) 174 H Random Glucose 177 H Calcium 7.7 L Total Bilirubin 0.2 AST 26 ALT 28 Alkaline Phosphatase 81 Total Protein 7.3 Albumin 3.6 Globulin 3.7 Albumin/Globulin Ratio 1.0 Ur Random Creatinine 01/22/18 11:58 WBC RBC Hgb Hct MCV MCH MCHC RDW Plt Count Sodium Potassium Chloride Carbon Dioxide Anion Gap BUN Creatinine Est GFR ( Amer) Est GFR (Non-Af Amer) POC Glucose (mg/dL) 185 H Random Glucose Calcium Total Bilirubin AST ALT Alkaline Phosphatase Total Protein Albumin Globulin Albumin/Globulin Ratio Ur Random Creatinine Assessment & Plan - Assessment and Plan (Free Text) Assessment: 1. Dilated distal esophagus on CT imaging 2. GERD 3. BL PNA 4. upper abdominal pain Plan: -Continue supportive care -PPI po daily -No signs of food bolus, continue diet as tolerated -Pt will benefit from CT with po contrast of chest and abdomen to further evaluate esophagus once medically stable from acute PNA to r/o underlying malignancy, achalasia, stricture -Abdominal pain likely form BL lower lobe PNA -Abd US negative for acute jass, +gallstones -LFTs wnl -Will continue to follow closely <Toney Alfred - Last Filed: 01/31/18 09:13> Meds - Medications Medications: Current Medications Acetaminophen (Tylenol 325mg Tab) 650 mg PO Q6 PRN PRN Reason: Pain, Mild (1-3) Last Admin: 01/27/18 21:43 Dose: 650 mg Albuterol/Ipratropium (Duoneb 3 Mg/0.5 Mg (3 Ml) Ud) 3 ml INH RQ4 [facility] Last Admin: 01/31/18 08:16 Dose: 3 ml Amlodipine Besylate (Norvasc) 10 mg PO DAILY [facility] Last Admin: 01/30/18 16:09 Dose: Not Given Aspirin (Ecotrin) 81 mg PO DAILY [facility] Last Admin: 01/20/18 09:22 Dose: 81 mg Bisoprolol Fumarate (Zebeta) 10 mg PO DAILY [facility] Cholecalciferol (Vitamin D) 1,000 intlu PO DAILY [facility] Last Admin: 01/30/18 15:11 Dose: Not Given Famotidine (Pepcid) 40 mg PO HS [facility] Last Admin: 01/30/18 22:10 Dose: 40 mg Ferrous Gluconate (Fergon) 324 mg PO DAILY [facility] Last Admin: 01/30/18 15:43 Dose: Not Given Furosemide (Lasix) 40 mg PO DAILY [facility] Last Admin: 01/21/18 09:34 Dose: Not Given Glipizide (Glucotrol) 10 mg PO DAILY [facility] Last Admin: 01/30/18 15:53 Dose: Not Given Meropenem 500 mg/ Sodium (Chloride) 100 mls @ 100 mls/hr IVPB Q24H [facility]; Protocol Last Admin: 01/30/18 13:37 Dose: 100 mls/hr Fluconazole (Diflucan Iv 100 Mg/50 Ml Ns) 50 mls @ 50 mls/hr IVPB DAILY [facility]; Protocol Last Admin: 01/30/18 13:32 Dose: 50 mls/hr Insulin Human Lispro (Humalog) 0 units SC ACHS [facility]; Protocol Last Admin: 01/31/18 06:31 Dose: 3 units Isosorbide Mononitrate (Imdur Er) 30 mg PO DAILY [facility] Last Admin: 01/30/18 16:09 Dose: Not Given Lidocaine (Lidoderm) 1 ea TD DAILY [facility] Last Admin: 01/30/18 13:37 Dose: 1 ea Methylprednisolone (Solu-Medrol) 10 mg IVP Q8 [facility] Last Admin: 01/31/18 01:55 Dose: 10 mg Pantoprazole Sodium (Protonix Ec Tab) 40 mg PO DAILY [facility] Last Admin: 01/30/18 11:03 Dose: Not Given Pravastatin Sodium (Pravachol) 40 mg PO HS [facility] Last Admin: 01/30/18 22:10 Dose: 40 mg Sitagliptin Phosphate (Januvia) 100 mg PO DAILY [facility] Last Admin: 01/30/18 16:09 Dose: Not Given Sucralfate (Carafate Tab) 1 gm PO BID [facility] Last Admin: 01/30/18 17:15 Dose: 1 gm Results - Vital Signs Recent Vital Signs: Last Vital Signs Temp 98.1 F 01/31/18 08:20 Pulse 99 H 01/31/18 08:20 Resp 20 01/31/18 08:20 BP 136/58 L 01/31/18 08:20 Pulse Ox 95 01/31/18 08:20 - Labs Result Diagrams: 01/31/18 06:30 01/31/18 06:30 Labs: Laboratory Results - last 24 hr 01/30/18 01/30/18 01/30/18 11:28 16:14 21:21 WBC RBC Hgb Hct MCV MCH MCHC RDW Plt Count pCO2 pO2 HCO3 ABG pH ABG Total CO2 ABG O2 Saturation ABG O2 Content ABG Base Excess ABG Hemoglobin ABG Carboxyhemoglobin POC ABG HHb (Measured) ABG Methemoglobin ABG O2 Capacity Rosales Test A-a O2 Difference Hgb O2 Saturation FiO2 Sodium Potassium Chloride Carbon Dioxide Anion Gap BUN Creatinine Est GFR ( Amer) Est GFR (Non-Af Amer) POC Glucose (mg/dL) 147 H 170 H 174 H Random Glucose Calcium 01/31/18 01/31/18 01/31/18 05:23 06:30 06:30 WBC 16.9 H RBC 3.66 L Hgb 10.5 L Hct 33.1 L MCV 90.4 MCH 28.6 MCHC 31.6 L RDW 15.1 H Plt Count 252 pCO2 pO2 HCO3 ABG pH ABG Total CO2 ABG O2 Saturation ABG O2 Content ABG Base Excess ABG Hemoglobin ABG Carboxyhemoglobin POC ABG HHb (Measured) ABG Methemoglobin ABG O2 Capacity Rosales Test A-a O2 Difference Hgb O2 Saturation FiO2 Sodium 136 Potassium 4.7 Chloride 101 Carbon Dioxide 25 Anion Gap 15 BUN 33 H Creatinine 1.6 H Est GFR ( Amer) 38 Est GFR (Non-Af Amer) 31 POC Glucose (mg/dL) 219 H Random Glucose 211 H Calcium 8.3 L 01/31/18 07:40 WBC RBC Hgb Hct MCV MCH MCHC RDW Plt Count pCO2 42 pO2 70 L HCO3 25.6 ABG pH 7.40 ABG Total CO2 27.3 ABG O2 Saturation 94.9 L ABG O2 Content 14.3 L ABG Base Excess 1.0 ABG Hemoglobin 10.9 L ABG Carboxyhemoglobin 0.8 POC ABG HHb (Measured) 5.0 ABG Methemoglobin 1.3 ABG O2 Capacity 15.1 L Rosales Test Yes A-a O2 Difference 163.0 Hgb O2 Saturation 92.9 L FiO2 40.0 Sodium Potassium Chloride Carbon Dioxide Anion Gap BUN Creatinine Est GFR ( Amer) Est GFR (Non-Af Amer) POC Glucose (mg/dL) Random Glucose Calcium Assessment & Plan - Assessment and Plan (Free Text) Plan: Patient seen and examined Discussed with fellow and agree with above Toney Alfred MD, PhD
--- NOTE | 2018-01-22 12:08 | CP.PCM.PN ---
Subjective - Date & Time of Evaluation Date of Evaluation: 01/22/18 Time of Evaluation: 12:08 - Subjective Subjective: 77 yo HF with pmh/o htn, dm, cad, chf, back pain? DJD/ spinal stenosis, copd, ckd was admitted with weakness, sob, cough increased bun/cr with s.cr about 3- 3.5 to telemetry and then transferred to TCU for physical therapy. now pt is transferred back to tele. c/o RUQ pain, nausea, decreased po intake, elevated wbc pt is feeling slightly better , still c/o RUQ pain Objective - Vital Signs/Intake and Output Vital Signs (last 24 hours): Temp Pulse Resp BP Pulse Ox 97.7 F 82 18 117/65 95 01/22/18 08:00 01/22/18 09:00 01/22/18 08:00 01/22/18 08:56 01/22/18 08:00 - Medications Medications: Current Medications Acetaminophen (Tylenol 325mg Tab) 650 mg PO Q6 PRN PRN Reason: Pain, Mild (1-3) Albuterol/Ipratropium (Duoneb 3 Mg/0.5 Mg (3 Ml) Ud) 3 ml INH RQ4 [facility] Last Admin: 01/22/18 11:38 Dose: 3 ml Amlodipine Besylate (Norvasc) 10 mg PO DAILY [facility] Last Admin: 01/22/18 08:56 Dose: 10 mg Aspirin (Ecotrin) 81 mg PO DAILY [facility] Last Admin: 01/20/18 09:22 Dose: 81 mg Bisoprolol Fumarate (Zebeta) 5 mg PO DAILY [facility] Last Admin: 01/22/18 08:56 Dose: 5 mg Cholecalciferol (Vitamin D) 1,000 intlu PO DAILY [facility] Last Admin: 01/22/18 08:56 Dose: 1,000 intlu Enoxaparin Sodium (Lovenox) 30 mg SC DAILY [facility]; Protocol Last Admin: 01/22/18 08:55 Dose: 30 mg Ferrous Gluconate (Fergon) 324 mg PO DAILY [facility] Last Admin: 01/22/18 08:56 Dose: 324 mg Furosemide (Lasix) 40 mg PO DAILY [facility] Last Admin: 01/21/18 09:34 Dose: Not Given Glipizide (Glucotrol) 10 mg PO DAILY [facility] Last Admin: 10/23/18 08:55 Dose: 10 mg Moxifloxacin HCl (Avelox Iv 400mg/250ml Ns) 400 mg in 250 mls @ 250 mls/hr IVPB DAILY [facility]; Protocol Last Admin: 01/22/18 08:58 Dose: 250 mls/hr Sodium Chloride (Sodium Chloride 0.45%) 1,000 mls @ 70 mls/hr IV .[id number] [facility] Stop: 01/22/18 22:34 Last Admin: 01/22/18 00:55 Dose: 70 mls/hr Meropenem 500 mg/ Sodium (Chloride) 100 mls @ 100 mls/hr IVPB Q8 [facility]; Protocol Vancomycin HCl 1 gm/ Sodium (Chloride) 250 mls @ 166.667 mls/hr IVPB ONCE ONE; Protocol Stop: 01/22/18 12:11 Insulin Human Lispro (Humalog) 0 units SC ACHS [facility]; Protocol Last Admin: 01/22/18 08:59 Dose: 2 units Isosorbide Mononitrate (Imdur Er) 30 mg PO DAILY [facility] Last Admin: 01/22/18 08:55 Dose: 30 mg Losartan Potassium (Cozaar) 50 mg PO DAILY [facility] Last Admin: 01/20/18 09:26 Dose: 50 mg Methylprednisolone (Solu-Medrol) 40 mg IVP Q8 [facility] Last Admin: 01/22/18 08:56 Dose: 40 mg Oxycodone/Acetaminophen (Percocet 5/325 Mg Tab) 1 tab PO Q12 PRN PRN Reason: Pain, severe (8-10) Stop: 01/23/18 06:59 Last Admin: 01/22/18 05:14 Dose: 1 tab Pantoprazole Sodium (Protonix Ec Tab) 40 mg PO DAILY [facility] Last Admin: 01/22/18 08:55 Dose: 40 mg Pravastatin Sodium (Pravachol) 40 mg PO HS [facility] Last Admin: 01/21/18 22:27 Dose: 40 mg Sitagliptin Phosphate (Januvia) 100 mg PO DAILY [facility] Last Admin: 01/22/18 08:56 Dose: 100 mg Sucralfate (Carafate Tab) 1 gm PO BID [facility] Last Admin: 01/22/18 08:56 Dose: 1 gm - Labs Labs: 01/22/18 05:15 01/22/18 05:15 PT 11.0 Seconds (9.8-13.1) 01/19/18 23:03 INR 1.0 01/19/18 23:03 APTT 27.2 Seconds (25.6-37.1) 01/19/18 23:03 - Constitutional Appears: Well, Non-toxic, No Acute Distress - Head Exam Head Exam: ATRAUMATIC, NORMAL INSPECTION, NORMOCEPHALIC - Eye Exam Eye Exam: EOMI, Normal appearance, PERRL Pupil Exam: NORMAL ACCOMODATION - ENT Exam ENT Exam: Mucous Membranes Moist - Neck Exam Neck Exam: Full ROM, Normal Inspection - Respiratory Exam Respiratory Exam: Clear to Ausculation Bilateral, NORMAL BREATHING PATTERN - Cardiovascular Exam Cardiovascular Exam: REGULAR RHYTHM, +S1, +S2 - GI/Abdominal Exam GI & Abdominal Exam: Soft, Tenderness, Normal Bowel Sounds Additional comments: RUQ tenderness+ - Rectal Exam Rectal Exam: Deferred - Extremities Exam Additional comments: no edema of legs - Neurological Exam Neurological Exam: Alert, Awake, CN II-XII Intact, Oriented x3 - Skin Skin Exam: Normal Color, Warm Assessment and Plan - Assessment and Plan (Free Text) Assessment: 77 yo HF with pmh/o htn, dm, chf, cad, ckd, copd , djd/ ? spinal stenosis with RUQ pain, , increased bun/cr, decreased po intake, high wbc 1. CAMPBELL on ckd-3 2. RUQ pain r/o acute jass 3. cholelithiasis 4. HTN c/w ivf 1/2 ns at 70 ml/hr u/s Gb c/w cholelithiasis HIDA scan is negative, cystic duct is patenet c/w iv abx as per ID bmp in am
--- NOTE | 2018-01-22 12:40 | CP.PCM.PN ---
<Geetha Trent - Last Filed: 01/22/18 17:45> Subjective - Date & Time of Evaluation Date of Evaluation: 01/22/18 Time of Evaluation: 08:00 - Subjective Subjective: Patient seen and examined with Dr Austin today patient reports feeling little better, no sob at this time VSS, afebrile Objective - Vital Signs/Intake and Output Vital Signs (last 24 hours): Temp Pulse Resp BP Pulse Ox 97.7 F 82 18 117/65 95 01/22/18 08:00 01/22/18 09:00 01/22/18 08:00 01/22/18 08:56 01/22/18 08:00 - Medications Medications: Current Medications Acetaminophen (Tylenol 325mg Tab) 650 mg PO Q6 PRN PRN Reason: Pain, Mild (1-3) Albuterol/Ipratropium (Duoneb 3 Mg/0.5 Mg (3 Ml) Ud) 3 ml INH RQ4 [facility] Last Admin: 01/22/18 11:38 Dose: 3 ml Amlodipine Besylate (Norvasc) 10 mg PO DAILY [facility] Last Admin: 01/22/18 08:56 Dose: 10 mg Aspirin (Ecotrin) 81 mg PO DAILY [facility] Last Admin: 01/20/18 09:22 Dose: 81 mg Bisoprolol Fumarate (Zebeta) 5 mg PO DAILY [facility] Last Admin: 01/22/18 08:56 Dose: 5 mg Cholecalciferol (Vitamin D) 1,000 intlu PO DAILY [facility] Last Admin: 01/22/18 08:56 Dose: 1,000 intlu Enoxaparin Sodium (Lovenox) 30 mg SC DAILY [facility]; Protocol Last Admin: 01/22/18 08:55 Dose: 30 mg Ferrous Gluconate (Fergon) 324 mg PO DAILY [facility] Last Admin: 01/22/18 08:56 Dose: 324 mg Furosemide (Lasix) 40 mg PO DAILY [facility] Last Admin: 01/21/18 09:34 Dose: Not Given Glipizide (Glucotrol) 10 mg PO DAILY [facility] Last Admin: 01/22/18 08:55 Dose: 10 mg Moxifloxacin HCl (Avelox Iv 400mg/250ml Ns) 400 mg in 250 mls @ 250 mls/hr IVPB DAILY [facility]; Protocol Last Admin: 01/22/18 08:58 Dose: 250 mls/hr Sodium Chloride (Sodium Chloride 0.45%) 1,000 mls @ 70 mls/hr IV .[id number] [facility] Stop: 01/22/18 22:34 Last Admin: 01/22/18 00:55 Dose: 70 mls/hr Meropenem 500 mg/ Sodium (Chloride) 100 mls @ 100 mls/hr IVPB Q8 [facility]; Protocol Insulin Human Lispro (Humalog) 0 units SC ACHS [facility]; Protocol Last Admin: 01/22/18 08:59 Dose: 2 units Isosorbide Mononitrate (Imdur Er) 30 mg PO DAILY [facility] Last Admin: 01/22/18 08:55 Dose: 30 mg Losartan Potassium (Cozaar) 50 mg PO DAILY [facility] Last Admin: 01/20/18 09:26 Dose: 50 mg Methylprednisolone (Solu-Medrol) 40 mg IVP Q8 [facility] Last Admin: 01/22/18 08:56 Dose: 40 mg Oxycodone/Acetaminophen (Percocet 5/325 Mg Tab) 1 tab PO Q12 PRN PRN Reason: Pain, severe (8-10) Stop: 01/23/18 06:59 Last Admin: 01/22/18 05:14 Dose: 1 tab Pantoprazole Sodium (Protonix Ec Tab) 40 mg PO DAILY [facility] Last Admin: 01/22/18 08:55 Dose: 40 mg Pravastatin Sodium (Pravachol) 40 mg PO HS [facility] Last Admin: 01/21/18 22:27 Dose: 40 mg Sitagliptin Phosphate (Januvia) 100 mg PO DAILY [facility] Last Admin: 01/22/18 08:56 Dose: 100 mg Sucralfate (Carafate Tab) 1 gm PO BID [facility] Last Admin: 01/22/18 08:56 Dose: 1 gm - Labs Labs: 01/22/18 05:15 01/22/18 05:15 PT 11.0 Seconds (9.8-13.1) 01/19/18 23:03 INR 1.0 01/19/18 23:03 APTT 27.2 Seconds (25.6-37.1) 01/19/18 23:03 - Constitutional Appears: No Acute Distress - Head Exam Head Exam: NORMAL INSPECTION - Respiratory Exam Respiratory Exam: Decreased Breath Sounds, Prolonged Expiratory Phase. absent: Wheezes - Cardiovascular Exam Cardiovascular Exam: REGULAR RHYTHM, +S1, +S2 - GI/Abdominal Exam GI & Abdominal Exam: Soft. absent: Distended, Tenderness - Extremities Exam Extremities Exam: absent: Calf Tenderness - Neurological Exam Neurological Exam: Alert, Awake, Oriented x3 - Skin Skin Exam: Dry, Warm Assessment and Plan - Assessment and Plan (Free Text) Assessment: 77 yo female patient admitted due to pneumonia, unspecified type. Plan: - afebrile, no chest pain, stable - doing better - ID consulted, input appreciated - Pulmonology on board, input appreciated - continue plan as ordered <Manpreet Austin - Last Filed: 01/26/18 08:22> Objective - Vital Signs/Intake and Output Vital Signs (last 24 hours): Temp Pulse Resp BP Pulse Ox 98.2 F 79 18 114/66 92 L 01/26/18 04:51 01/26/18 04:51 01/26/18 07:29 01/26/18 04:51 01/26/18 04:51 - Medications Medications: Current Medications Acetaminophen (Tylenol 325mg Tab) 650 mg PO Q6 PRN PRN Reason: Pain, Mild (1-3) Last Admin: 01/25/18 20:58 Dose: 650 mg Albuterol/Ipratropium (Duoneb 3 Mg/0.5 Mg (3 Ml) Ud) 3 ml INH RQ4 [facility] Last Admin: 01/26/18 07:29 Dose: Not Given Amlodipine Besylate (Norvasc) 10 mg PO DAILY [facility] Last Admin: 01/25/18 09:31 Dose: 10 mg Aspirin (Ecotrin) 81 mg PO DAILY [facility] Last Admin: 01/20/18 09:22 Dose: 81 mg Bisoprolol Fumarate (Zebeta) 5 mg PO DAILY [facility] Last Admin: 01/25/18 09:31 Dose: 5 mg Cholecalciferol (Vitamin D) 1,000 intlu PO DAILY [facility] Last Admin: 01/25/18 09:31 Dose: 1,000 intlu Enoxaparin Sodium (Lovenox) 30 mg SC DAILY [facility]; Protocol Last Admin: 01/25/18 09:32 Dose: 30 mg Famotidine (Pepcid) 40 mg PO HS [facility] Last Admin: 01/25/18 20:58 Dose: 40 mg Ferrous Gluconate (Fergon) 324 mg PO DAILY [facility] Last Admin: 01/25/18 09:31 Dose: 324 mg Furosemide (Lasix) 40 mg PO DAILY [facility] Last Admin: 01/21/18 09:34 Dose: Not Given Glipizide (Glucotrol) 10 mg PO DAILY [facility] Last Admin: 01/25/18 09:31 Dose: 10 mg Moxifloxacin HCl (Avelox Iv 400mg/250ml Ns) 400 mg in 250 mls @ 250 mls/hr IVPB DAILY [facility]; Protocol Last Admin: 01/25/18 09:29 Dose: 250 mls/hr Meropenem 500 mg/ Sodium (Chloride) 100 mls @ 100 mls/hr IVPB Q8 [facility]; Protocol Last Admin: 01/26/18 00:13 Dose: 100 mls/hr Insulin Human Lispro (Humalog) 0 units SC ACHS [facility]; Protocol Last Admin: 01/25/18 22:46 Dose: Not Given Isosorbide Mononitrate (Imdur Er) 30 mg PO DAILY [facility] Last Admin: 01/25/18 09:31 Dose: 30 mg Losartan Potassium (Cozaar) 50 mg PO DAILY [facility] Last Admin: 01/20/18 09:26 Dose: 50 mg Methylprednisolone (Solu-Medrol) 20 mg IVP Q8 [facility] Last Admin: 01/26/18 00:13 Dose: 20 mg Pantoprazole Sodium (Protonix Ec Tab) 40 mg PO DAILY [facility] Last Admin: 01/25/18 09:31 Dose: 40 mg Pravastatin Sodium (Pravachol) 40 mg PO HS [facility] Last Admin: 01/25/18 20:59 Dose: 40 mg Sitagliptin Phosphate (Januvia) 100 mg PO DAILY [facility] Last Admin: 01/25/18 09:31 Dose: 100 mg Sucralfate (Carafate Tab) 1 gm PO BID [facility] Last Admin: 01/25/18 17:27 Dose: 1 gm - Labs Labs: 01/26/18 05:40 01/25/18 04:50 PT 11.0 Seconds (9.8-13.1) 01/19/18 23:03 INR 1.0 01/19/18 23:03 APTT 27.2 Seconds (25.6-37.1) 01/19/18 23:03 Assessment and Plan - Assessment and Plan (Free Text) Assessment: Patient was personally seen and examined by me in rounds with residents. Available labs and diagnostic data reviewed. Case, Patient's condition and management plan discussed with residents in rounds. Agree with resident's progress note. Plan: As ordered.
--- NOTE | 2018-01-22 15:05 | CP.PCM.PN ---
Subjective - Date & Time of Evaluation Date of Evaluation: 01/22/18 Time of Evaluation: 10:30 - Subjective Subjective: F/U Asthma Exacerbation/COPD Pt c/o of chest congestion, occasional cough with whitish sputum Objective - Vital Signs/Intake and Output Vital Signs (last 24 hours): Temp Pulse Resp BP Pulse Ox 97.5 F L 77 18 103/56 L 96 01/22/18 12:00 01/22/18 12:00 01/22/18 12:00 01/22/18 12:00 01/22/18 12:00 - Medications Medications: Current Medications Acetaminophen (Tylenol 325mg Tab) 650 mg PO Q6 PRN PRN Reason: Pain, Mild (1-3) Albuterol/Ipratropium (Duoneb 3 Mg/0.5 Mg (3 Ml) Ud) 3 ml INH RQ4 [facility] Last Admin: 01/22/18 11:38 Dose: 3 ml Amlodipine Besylate (Norvasc) 10 mg PO DAILY [facility] Last Admin: 01/22/18 08:56 Dose: 10 mg Aspirin (Ecotrin) 81 mg PO DAILY [facility] Last Admin: 01/20/18 09:22 Dose: 81 mg Bisoprolol Fumarate (Zebeta) 5 mg PO DAILY [facility] Last Admin: 01/22/18 08:56 Dose: 5 mg Cholecalciferol (Vitamin D) 1,000 intlu PO DAILY [facility] Last Admin: 01/22/18 08:56 Dose: 1,000 intlu Enoxaparin Sodium (Lovenox) 30 mg SC DAILY [facility]; Protocol Last Admin: 01/22/18 08:55 Dose: 30 mg Ferrous Gluconate (Fergon) 324 mg PO DAILY [facility] Last Admin: 01/22/18 08:56 Dose: 324 mg Furosemide (Lasix) 40 mg PO DAILY [facility] Last Admin: 01/21/18 09:34 Dose: Not Given Glipizide (Glucotrol) 10 mg PO DAILY [facility] Last Admin: 01/22/18 08:55 Dose: 10 mg Moxifloxacin HCl (Avelox Iv 400mg/250ml Ns) 400 mg in 250 mls @ 250 mls/hr IVPB DAILY [facility]; Protocol Last Admin: 01/22/18 08:58 Dose: 250 mls/hr Sodium Chloride (Sodium Chloride 0.45%) 1,000 mls @ 70 mls/hr IV .[id number] [facility] Stop: 01/22/18 22:34 Last Admin: 01/22/18 00:55 Dose: 70 mls/hr Meropenem 500 mg/ Sodium (Chloride) 100 mls @ 100 mls/hr IVPB Q8 [facility]; Protocol Insulin Human Lispro (Humalog) 0 units SC ACHS [facility]; Protocol Last Admin: 01/22/18 08:59 Dose: 2 units Isosorbide Mononitrate (Imdur Er) 30 mg PO DAILY [facility] Last Admin: 01/22/18 08:55 Dose: 30 mg Losartan Potassium (Cozaar) 50 mg PO DAILY [facility] Last Admin: 01/20/18 09:26 Dose: 50 mg Methylprednisolone (Solu-Medrol) 40 mg IVP Q8 [facility] Last Admin: 01/22/18 08:56 Dose: 40 mg Oxycodone/Acetaminophen (Percocet 5/325 Mg Tab) 1 tab PO Q12 PRN PRN Reason: Pain, severe (8-10) Stop: 01/23/18 06:59 Last Admin: 01/22/18 05:14 Dose: 1 tab Pantoprazole Sodium (Protonix Ec Tab) 40 mg PO DAILY [facility] Last Admin: 01/22/18 08:55 Dose: 40 mg Pravastatin Sodium (Pravachol) 40 mg PO HS [facility] Last Admin: 01/21/18 22:27 Dose: 40 mg Sitagliptin Phosphate (Januvia) 100 mg PO DAILY [facility] Last Admin: 01/22/18 08:56 Dose: 100 mg Sucralfate (Carafate Tab) 1 gm PO BID [facility] Last Admin: 01/22/18 08:56 Dose: 1 gm - Labs Labs: 01/22/18 05:15 01/22/18 05:15 PT 11.0 Seconds (9.8-13.1) 01/19/18 23:03 INR 1.0 01/19/18 23:03 APTT 27.2 Seconds (25.6-37.1) 01/19/18 23:03 - Constitutional Appears: No Acute Distress - Head Exam Head Exam: NORMAL INSPECTION - Eye Exam Eye Exam: PERRL - ENT Exam ENT Exam: Normal Exam - Neck Exam Neck Exam: Normal Inspection - Respiratory Exam Respiratory Exam: Decreased Breath Sounds (at bases), Rhonchi (b/l), Wheezes (b/l) - Cardiovascular Exam Cardiovascular Exam: REGULAR RHYTHM - GI/Abdominal Exam GI & Abdominal Exam: Soft, Normal Bowel Sounds - Extremities Exam Additional comments: Edema BLE - Neurological Exam Neurological Exam: Alert, Oriented x3 - Psychiatric Exam Psychiatric exam: Normal Mood - Skin Skin Exam: Warm Assessment and Plan (1) Pneumonia Status: Acute (2) COPD exacerbation Status: Acute - Assessment and Plan (Free Text) Plan: Abd U-S Cholelithiasis, HIDA order for r/o Cholecystitis. Merren order by ID, continue Avelox, Solu-Mdrol, Duoneb and rest of Tx.
--- NOTE | 2018-01-22 15:19 | NM ---
Date of service: Lulu Wilkes 01/22/2018 PROCEDURE: Nuclear Medicine Hepatobiliary Scan HISTORY: RUQ pain COMPARISON: January 16, 2018 abdominal ultrasound TECHNIQUE: 5.26 mCi of technetium 99m Mebrofenin was administered intravenously. Planar images of the abdomen were obtained at 5 min intervals to 60 mins. Delayed images were also obtained. FINDINGS: LIVER: Timely and homogenous uptake. COMMON BILE DUCT: identified at 10 mins. GALLBLADDER: identified at 30 mins. SMALL BOWEL: Identified at 45 mins. IMPRESSION: Normal Hepatobiliary Scan. The cystic duct is patent.
[2018-01-22] MEDS: Meropenem 500 MG in Sodium Chloride 0.9% 100 ML IVPB SCH ×2 (15:59→16:13)
[2018-01-22] MEDS: Pravastatin Sodium 40 MG TAB PO SCH (21:05)
[2018-01-23] MEDS: Meropenem 500 MG in Sodium Chloride 0.9% 100 ML IVPB SCH ×3 (01:16→16:21)
[2018-01-23] MEDS: MethylPREDNISolone 40 mg Vial IVP SCH ×3 (01:16→16:22)
[2018-01-23] MEDS: Albuterol-Ipratrop 3 mg / 0.5 (3 ml) UD INH SCH ×5 (04:07→19:47)
[2018-01-23 06:15] LABS: CALCIUM 7.2 mg/dL (8.4-10.2)
[2018-01-23] MEDS: Insulin Lispro (humaLOG) 100 Units/ml Inj SC SCH ×4 (06:44→21:13)
--- NOTE | 2018-01-23 08:11 | CP.PCM.PN ---
<Geetha Trent - Last Filed: 01/23/18 10:10> Subjective - Date & Time of Evaluation Date of Evaluation: 01/23/18 Time of Evaluation: 08:10 - Subjective Subjective: Patient seen and examined this morning with Dr Austin, reports some improvement though mild sob, on NC at 2 lpm No abdominal pain reported but tender to touch afebrile, VSS Objective - Vital Signs/Intake and Output Vital Signs (last 24 hours): Temp Pulse Resp BP Pulse Ox 97.3 F L 85 20 108/63 91 L 01/23/18 08:00 01/23/18 08:00 01/23/18 08:00 01/23/18 08:00 01/23/18 08:00 - Medications Medications: Current Medications Acetaminophen (Tylenol 325mg Tab) 650 mg PO Q6 PRN PRN Reason: Pain, Mild (1-3) Albuterol/Ipratropium (Duoneb 3 Mg/0.5 Mg (3 Ml) Ud) 3 ml INH RQ4 [facility] Last Admin: 01/23/18 04:07 Dose: 3 ml Amlodipine Besylate (Norvasc) 10 mg PO DAILY [facility] Last Admin: 01/22/18 08:56 Dose: 10 mg Aspirin (Ecotrin) 81 mg PO DAILY [facility] Last Admin: 01/20/18 09:22 Dose: 81 mg Bisoprolol Fumarate (Zebeta) 5 mg PO DAILY [facility] Last Admin: 01/22/18 08:56 Dose: 5 mg Cholecalciferol (Vitamin D) 1,000 intlu PO DAILY [facility] Last Admin: 01/22/18 08:56 Dose: 1,000 intlu Enoxaparin Sodium (Lovenox) 30 mg SC DAILY [facility]; Protocol Last Admin: 01/22/18 08:55 Dose: 30 mg Ferrous Gluconate (Fergon) 324 mg PO DAILY [facility] Last Admin: 01/22/18 08:56 Dose: 324 mg Furosemide (Lasix) 40 mg PO DAILY [facility] Last Admin: 01/21/18 09:34 Dose: Not Given Glipizide (Glucotrol) 10 mg PO DAILY [facility] Last Admin: 01/22/18 08:55 Dose: 10 mg Moxifloxacin HCl (Avelox Iv 400mg/250ml Ns) 400 mg in 250 mls @ 250 mls/hr IVPB DAILY [facility]; Protocol Last Admin: 01/22/18 08:58 Dose: 250 mls/hr Meropenem 500 mg/ Sodium (Chloride) 100 mls @ 100 mls/hr IVPB Q8 [facility]; Protocol Last Admin: 01/23/18 01:16 Dose: 100 mls/hr Insulin Human Lispro (Humalog) 0 units SC ACHS [facility]; Protocol Last Admin: 01/23/18 06:44 Dose: 3 units Isosorbide Mononitrate (Imdur Er) 30 mg PO DAILY [facility] Last Admin: 01/22/18 08:55 Dose: 30 mg Losartan Potassium (Cozaar) 50 mg PO DAILY [facility] Last Admin: 01/20/18 09:26 Dose: 50 mg Methylprednisolone (Solu-Medrol) 30 mg IVP Q8 [facility] Pantoprazole Sodium (Protonix Ec Tab) 40 mg PO DAILY [facility] Last Admin: 01/22/18 08:55 Dose: 40 mg Pravastatin Sodium (Pravachol) 40 mg PO HS [facility] Last Admin: 01/22/18 21:05 Dose: 40 mg Sitagliptin Phosphate (Januvia) 100 mg PO DAILY [facility] Last Admin: 01/22/18 08:56 Dose: 100 mg Sucralfate (Carafate Tab) 1 gm PO BID [facility] Last Admin: 01/22/18 16:51 Dose: 1 gm - Labs Labs: 01/22/18 05:15 01/23/18 05:15 PT 11.0 Seconds (9.8-13.1) 01/19/18 23:03 INR 1.0 01/19/18 23:03 APTT 27.2 Seconds (25.6-37.1) 01/19/18 23:03 - Constitutional Appears: No Acute Distress - Head Exam Head Exam: NORMAL INSPECTION - Eye Exam Eye Exam: EOMI - Respiratory Exam Respiratory Exam: Decreased Breath Sounds, Rhonchi, Wheezes (bibasilar) - Cardiovascular Exam Cardiovascular Exam: REGULAR RHYTHM, +S1, +S2 - GI/Abdominal Exam GI & Abdominal Exam: Soft, Tenderness (mild in RUQ, [place] sign neg) - Extremities Exam Extremities Exam: absent: Calf Tenderness - Neurological Exam Neurological Exam: Alert, Oriented x3 - Skin Skin Exam: Dry, Warm Assessment and Plan - Assessment and Plan (Free Text) Assessment: 77 yo female patient admitted due to pneumonia, unspecified type. Plan: - afebrile, no chest pain, stable - GI consulted, input appreciated - ID on board, input appreciated - Pulmonology on board, input appreciated - HIDA negative - sputum cx: positive for yeasts - Mycoplasma IgM positive - continue plan as ordered <Manpreet Austin - Last Filed: 01/26/18 08:20> Objective - Vital Signs/Intake and Output Vital Signs (last 24 hours): Temp Pulse Resp BP Pulse Ox 98.2 F 79 18 114/66 92 L 01/26/18 04:51 01/26/18 04:51 01/26/18 07:29 01/26/18 04:51 01/26/18 04:51 - Medications Medications: Current Medications Acetaminophen (Tylenol 325mg Tab) 650 mg PO Q6 PRN PRN Reason: Pain, Mild (1-3) Last Admin: 01/25/18 20:58 Dose: 650 mg Albuterol/Ipratropium (Duoneb 3 Mg/0.5 Mg (3 Ml) Ud) 3 ml INH RQ4 [facility] Last Admin: 01/26/18 07:29 Dose: Not Given Amlodipine Besylate (Norvasc) 10 mg PO DAILY [facility] Last Admin: 01/25/18 09:31 Dose: 10 mg Aspirin (Ecotrin) 81 mg PO DAILY [facility] Last Admin: 01/20/18 09:22 Dose: 81 mg Bisoprolol Fumarate (Zebeta) 5 mg PO DAILY [facility] Last Admin: 01/25/18 09:31 Dose: 5 mg Cholecalciferol (Vitamin D) 1,000 intlu PO DAILY [facility] Last Admin: 01/25/18 09:31 Dose: 1,000 intlu Enoxaparin Sodium (Lovenox) 30 mg SC DAILY [facility]; Protocol Last Admin: 01/25/18 09:32 Dose: 30 mg Famotidine (Pepcid) 40 mg PO HS [facility] Last Admin: 01/25/18 20:58 Dose: 40 mg Ferrous Gluconate (Fergon) 324 mg PO DAILY [facility] Last Admin: 01/25/18 09:31 Dose: 324 mg Furosemide (Lasix) 40 mg PO DAILY [facility] Last Admin: 01/21/18 09:34 Dose: Not Given Glipizide (Glucotrol) 10 mg PO DAILY [facility] Last Admin: 01/25/18 09:31 Dose: 10 mg Moxifloxacin HCl (Avelox Iv 400mg/250ml Ns) 400 mg in 250 mls @ 250 mls/hr IVPB DAILY [facility]; Protocol Last Admin: 01/25/18 09:29 Dose: 250 mls/hr Meropenem 500 mg/ Sodium (Chloride) 100 mls @ 100 mls/hr IVPB Q8 [facility]; Protocol Last Admin: 01/26/18 00:13 Dose: 100 mls/hr Insulin Human Lispro (Humalog) 0 units SC ACHS [facility]; Protocol Last Admin: 01/25/18 22:46 Dose: Not Given Isosorbide Mononitrate (Imdur Er) 30 mg PO DAILY [facility] Last Admin: 01/25/18 09:31 Dose: 30 mg Losartan Potassium (Cozaar) 50 mg PO DAILY [facility] Last Admin: 01/20/18 09:26 Dose: 50 mg Methylprednisolone (Solu-Medrol) 20 mg IVP Q8 [facility] Last Admin: 01/26/18 00:13 Dose: 20 mg Pantoprazole Sodium (Protonix Ec Tab) 40 mg PO DAILY [facility] Last Admin: 01/25/18 09:31 Dose: 40 mg Pravastatin Sodium (Pravachol) 40 mg PO HS [facility] Last Admin: 01/25/18 20:59 Dose: 40 mg Sitagliptin Phosphate (Januvia) 100 mg PO DAILY [facility] Last Admin: 01/25/18 09:31 Dose: 100 mg Sucralfate (Carafate Tab) 1 gm PO BID [facility] Last Admin: 01/25/18 17:27 Dose: 1 gm - Labs Labs: 01/26/18 05:40 01/25/18 04:50 PT 11.0 Seconds (9.8-13.1) 01/19/18 23:03 INR 1.0 01/19/18 23:03 APTT 27.2 Seconds (25.6-37.1) 01/19/18 23:03 Assessment and Plan - Assessment and Plan (Free Text) Assessment: Patient was personally seen and examined by me in rounds with residents. Available labs and diagnostic data reviewed. Case, Patient's condition and management plan discussed with residents in rounds. Agree with resident's progress note. Plan: As ordered.
[2018-01-23] MEDS: Sodium Chloride 0.45% 1,000 ML IV SCH (08:37)
[2018-01-23] MEDS: Enoxaparin 30 mg Syringe SC SCH (08:39)
[2018-01-23] MEDS: Cholecalciferol 1,000 INTLU TAB PO SCH (08:40)
[2018-01-23] MEDS: Pantoprazole 40 mg EC Tab PO SCH (08:40)
[2018-01-23] MEDS ORDERED: Sodium Chloride 0.45% 1,000 ML IV SCH (09:15)
--- NOTE | 2018-01-23 09:59 | CP.PCM.PN ---
<JasonHilary - Last Filed: 01/23/18 09:56> Subjective - Date & Time of Evaluation Date of Evaluation: 01/23/18 Time of Evaluation: 09:00 - Subjective Subjective: GI Fellow PGY5 Progress Note Pt seen and evaluated at bedside, pt denies any dysphagia but no appetite to eat. +BM. Reports GERD. ROS: A 12pt ROS was negative except as above. Objective - Vital Signs/Intake and Output Vital Signs (last 24 hours): Temp Pulse Resp BP Pulse Ox 97.3 F L 85 20 108/63 91 L 01/23/18 08:00 01/23/18 08:39 01/23/18 08:00 01/23/18 08:39 01/23/18 08:00 - Medications Medications: Current Medications Acetaminophen (Tylenol 325mg Tab) 650 mg PO Q6 PRN PRN Reason: Pain, Mild (1-3) Albuterol/Ipratropium (Duoneb 3 Mg/0.5 Mg (3 Ml) Ud) 3 ml INH RQ4 [facility] Last Admin: 01/23/18 08:32 Dose: 3 ml Amlodipine Besylate (Norvasc) 10 mg PO DAILY [facility] Last Admin: 01/23/18 08:39 Dose: 10 mg Aspirin (Ecotrin) 81 mg PO DAILY [facility] Last Admin: 01/20/18 09:22 Dose: 81 mg Bisoprolol Fumarate (Zebeta) 5 mg PO DAILY [facility] Last Admin: 01/23/18 08:38 Dose: 5 mg Cholecalciferol (Vitamin D) 1,000 intlu PO DAILY [facility] Last Admin: 01/23/18 08:40 Dose: 1,000 intlu Enoxaparin Sodium (Lovenox) 30 mg SC DAILY [facility]; Protocol Last Admin: 01/23/18 08:39 Dose: 30 mg Ferrous Gluconate (Fergon) 324 mg PO DAILY [facility] Last Admin: 01/23/18 08:38 Dose: 324 mg Furosemide (Lasix) 40 mg PO DAILY [facility] Last Admin: 01/21/18 09:34 Dose: Not Given Glipizide (Glucotrol) 10 mg PO DAILY [facility] Last Admin: 01/23/18 08:39 Dose: 10 mg Moxifloxacin HCl (Avelox Iv 400mg/250ml Ns) 400 mg in 250 mls @ 250 mls/hr IVPB DAILY [facility]; Protocol Last Admin: 01/22/18 08:58 Dose: 250 mls/hr Meropenem 500 mg/ Sodium (Chloride) 100 mls @ 100 mls/hr IVPB Q8 [facility]; Protocol Last Admin: 01/23/18 08:37 Dose: 100 mls/hr Sodium Chloride (Sodium Chloride 0.45%) 1,000 mls @ 70 mls/hr IV .[id number] [facility] Stop: 01/24/18 09:04 Insulin Human Lispro (Humalog) 0 units SC ACHS [facility]; Protocol Last Admin: 01/23/18 06:44 Dose: 3 units Isosorbide Mononitrate (Imdur Er) 30 mg PO DAILY [facility] Last Admin: 01/23/18 08:40 Dose: 30 mg Losartan Potassium (Cozaar) 50 mg PO DAILY [facility] Last Admin: 01/20/18 09:26 Dose: 50 mg Methylprednisolone (Solu-Medrol) 30 mg IVP Q8 [facility] Last Admin: 01/23/18 08:38 Dose: 30 mg Pantoprazole Sodium (Protonix Ec Tab) 40 mg PO DAILY [facility] Last Admin: 01/23/18 08:40 Dose: 40 mg Pravastatin Sodium (Pravachol) 40 mg PO HS [facility] Last Admin: 01/22/18 21:05 Dose: 40 mg Sitagliptin Phosphate (Januvia) 100 mg PO DAILY [facility] Last Admin: 01/23/18 08:40 Dose: 100 mg Sucralfate (Carafate Tab) 1 gm PO BID [facility] Last Admin: 01/23/18 08:40 Dose: 1 gm - Labs Labs: 01/22/18 05:15 01/23/18 05:15 PT 11.0 Seconds (9.8-13.1) 01/19/18 23:03 INR 1.0 01/19/18 23:03 APTT 27.2 Seconds (25.6-37.1) 01/19/18 23:03 - Constitutional Appears: Non-toxic, No Acute Distress - Head Exam Head Exam: ATRAUMATIC, NORMAL INSPECTION, NORMOCEPHALIC - Eye Exam Eye Exam: EOMI, Normal appearance, PERRL - ENT Exam ENT Exam: Mucous Membranes Moist - Respiratory Exam Respiratory Exam: Decreased Breath Sounds, NORMAL BREATHING PATTERN - Cardiovascular Exam Cardiovascular Exam: RRR, +S1, +S2 - GI/Abdominal Exam GI & Abdominal Exam: Soft, Normal Bowel Sounds. absent: Distended, Firm, Guarding, Tenderness - Extremities Exam Extremities Exam: Full ROM, Normal Inspection - Neurological Exam Neurological Exam: Alert, Awake, Oriented x3 - Psychiatric Exam Psychiatric exam: Flat Affect - Skin Skin Exam: Dry, Intact, Normal Color, Warm Assessment and Plan - Assessment and Plan (Free Text) Assessment: 1. Dilated distal esophagus on CT imaging 2. GERD 3. BL PNA 4. Upper abdominal pain Plan: -Continue supportive care -PPI po daily, Pepcid at night for GERD -No signs of food bolus, continue diet as tolerated, no dysphagia, poor appetite -Pt will benefit from CT with po contrast of chest and abdomen to further evaluate esophagus once medically stable from acute PNA to r/o underlying malignancy, achalasia, stricture -Abdominal pain likely from BL lower lobe PNA -Abd US negative for acute jass, +gallstones -LFTs wnl -Will continue to follow closely <Toney Alfred - Last Filed: 01/31/18 09:13> Objective - Vital Signs/Intake and Output Vital Signs (last 24 hours): Temp Pulse Resp BP Pulse Ox 98.1 F 99 H 20 136/58 L 95 01/31/18 08:20 01/31/18 08:20 01/31/18 08:20 01/31/18 08:20 01/31/18 08:20 - Medications Medications: Current Medications Acetaminophen (Tylenol 325mg Tab) 650 mg PO Q6 PRN PRN Reason: Pain, Mild (1-3) Last Admin: 01/27/18 21:43 Dose: 650 mg Albuterol/Ipratropium (Duoneb 3 Mg/0.5 Mg (3 Ml) Ud) 3 ml INH RQ4 [facility] Last Admin: 01/31/18 08:16 Dose: 3 ml Amlodipine Besylate (Norvasc) 10 mg PO DAILY [facility] Last Admin: 01/30/18 16:09 Dose: Not Given Aspirin (Ecotrin) 81 mg PO DAILY [facility] Last Admin: 01/20/18 09:22 Dose: 81 mg Bisoprolol Fumarate (Zebeta) 10 mg PO DAILY [facility] Cholecalciferol (Vitamin D) 1,000 intlu PO DAILY [facility] Last Admin: 01/30/18 15:11 Dose: Not Given Famotidine (Pepcid) 40 mg PO HS [facility] Last Admin: 01/30/18 22:10 Dose: 40 mg Ferrous Gluconate (Fergon) 324 mg PO DAILY [facility] Last Admin: 01/30/18 15:43 Dose: Not Given Furosemide (Lasix) 40 mg PO DAILY [facility] Last Admin: 01/21/18 09:34 Dose: Not Given Glipizide (Glucotrol) 10 mg PO DAILY [facility] Last Admin: 01/30/18 15:53 Dose: Not Given Meropenem 500 mg/ Sodium (Chloride) 100 mls @ 100 mls/hr IVPB Q24H [facility]; Protocol Last Admin: 01/30/18 13:37 Dose: 100 mls/hr Fluconazole (Diflucan Iv 100 Mg/50 Ml Ns) 50 mls @ 50 mls/hr IVPB DAILY [facility]; Protocol Last Admin: 01/30/18 13:32 Dose: 50 mls/hr Insulin Human Lispro (Humalog) 0 units SC ACHS [facility]; Protocol Last Admin: 01/31/18 06:31 Dose: 3 units Isosorbide Mononitrate (Imdur Er) 30 mg PO DAILY [facility] Last Admin: 01/30/18 16:09 Dose: Not Given Lidocaine (Lidoderm) 1 ea TD DAILY [facility] Last Admin: 01/30/18 13:37 Dose: 1 ea Methylprednisolone (Solu-Medrol) 10 mg IVP Q8 [facility] Last Admin: 01/31/18 01:55 Dose: 10 mg Pantoprazole Sodium (Protonix Ec Tab) 40 mg PO DAILY [facility] Last Admin: 01/30/18 11:03 Dose: Not Given Pravastatin Sodium (Pravachol) 40 mg PO HS [facility] Last Admin: 01/30/18 22:10 Dose: 40 mg Sitagliptin Phosphate (Januvia) 100 mg PO DAILY [facility] Last Admin: 01/30/18 16:09 Dose: Not Given Sucralfate (Carafate Tab) 1 gm PO BID [facility] Last Admin: 01/30/18 17:15 Dose: 1 gm - Labs Labs: 01/31/18 06:30 01/31/18 06:30 PT 11.0 Seconds (9.8-13.1) 01/19/18 23:03 INR 1.0 01/19/18 23:03 APTT 27.2 Seconds (25.6-37.1) 01/19/18 23:03 Assessment and Plan - Assessment and Plan (Free Text) Plan: Patient seen and examined Discussed with fellow and agree with above Toney Alfred MD, PhD
[2018-01-23] MEDS: Moxifloxacin IV 400mg/250ml NS 400 MG/250 ML BAG IVPB SCH (10:47)
--- NOTE | 2018-01-23 12:50 | CP.PCM.PN ---
Subjective - Date & Time of Evaluation Date of Evaluation: 01/23/18 Time of Evaluation: 09:00 - Subjective Subjective: less SOB more alert NAD Objective - Vital Signs/Intake and Output Vital Signs (last 24 hours): Temp Pulse Resp BP Pulse Ox 97.5 F L 84 20 108/57 L 94 L 01/23/18 12:00 01/23/18 12:00 01/23/18 12:00 01/23/18 12:00 01/23/18 12:00 - Medications Medications: Current Medications Acetaminophen (Tylenol 325mg Tab) 650 mg PO Q6 PRN PRN Reason: Pain, Mild (1-3) Albuterol/Ipratropium (Duoneb 3 Mg/0.5 Mg (3 Ml) Ud) 3 ml INH RQ4 [facility] Last Admin: 01/23/18 11:28 Dose: 3 ml Amlodipine Besylate (Norvasc) 10 mg PO DAILY [facility] Last Admin: 01/23/18 08:39 Dose: 10 mg Aspirin (Ecotrin) 81 mg PO DAILY [facility] Last Admin: 01/20/18 09:22 Dose: 81 mg Bisoprolol Fumarate (Zebeta) 5 mg PO DAILY [facility] Last Admin: 01/23/18 08:38 Dose: 5 mg Cholecalciferol (Vitamin D) 1,000 intlu PO DAILY [facility] Last Admin: 01/23/18 08:40 Dose: 1,000 intlu Enoxaparin Sodium (Lovenox) 30 mg SC DAILY [facility]; Protocol Last Admin: 01/23/18 08:39 Dose: 30 mg Famotidine (Pepcid) 40 mg PO [facility] Ferrous Gluconate (Fergon) 324 mg PO DAILY [facility] Last Admin: 01/23/18 08:38 Dose: 324 mg Furosemide (Lasix) 40 mg PO DAILY [facility] Last Admin: 01/21/18 09:34 Dose: Not Given Glipizide (Glucotrol) 10 mg PO DAILY [facility] Last Admin: 01/23/18 08:39 Dose: 10 mg Moxifloxacin HCl (Avelox Iv 400mg/250ml Ns) 400 mg in 250 mls @ 250 mls/hr IVPB DAILY [facility]; Protocol Last Admin: 01/23/18 10:47 Dose: 250 mls/hr Meropenem 500 mg/ Sodium (Chloride) 100 mls @ 100 mls/hr IVPB Q8 [facility]; Protocol Last Admin: 01/23/18 08:37 Dose: 100 mls/hr Sodium Chloride (Sodium Chloride 0.45%) 1,000 mls @ 70 mls/hr IV .[id number] [facility] Stop: 01/24/18 09:04 Last Admin: 01/23/18 10:48 Dose: 70 mls/hr Insulin Human Lispro (Humalog) 0 units SC ACHS [facility]; Protocol Last Admin: 01/23/18 12:08 Dose: 3 units Isosorbide Mononitrate (Imdur Er) 30 mg PO DAILY [facility] Last Admin: 01/23/18 08:40 Dose: 30 mg Losartan Potassium (Cozaar) 50 mg PO DAILY [facility] Last Admin: 01/20/18 09:26 Dose: 50 mg Methylprednisolone (Solu-Medrol) 30 mg IVP Q8 [facility] Last Admin: 01/23/18 08:38 Dose: 30 mg Pantoprazole Sodium (Protonix Ec Tab) 40 mg PO DAILY [facility] Last Admin: 01/23/18 08:40 Dose: 40 mg Pravastatin Sodium (Pravachol) 40 mg PO HS [facility] Last Admin: 01/22/18 21:05 Dose: 40 mg Sitagliptin Phosphate (Januvia) 100 mg PO DAILY [facility] Last Admin: 01/23/18 08:40 Dose: 100 mg Sucralfate (Carafate Tab) 1 gm PO BID [facility] Last Admin: 01/23/18 08:40 Dose: 1 gm - Labs Labs: 01/22/18 05:15 01/23/18 05:15 PT 11.0 Seconds (9.8-13.1) 01/19/18 23:03 INR 1.0 01/19/18 23:03 APTT 27.2 Seconds (25.6-37.1) 01/19/18 23:03 - Constitutional Appears: Non-toxic, Chronically Ill - Head Exam Head Exam: NORMOCEPHALIC - Eye Exam Eye Exam: absent: Scleral icterus - ENT Exam ENT Exam: Mucous Membranes Dry - Neck Exam Neck Exam: absent: Lymphadenopathy - Respiratory Exam Respiratory Exam: Decreased Breath Sounds - Cardiovascular Exam Cardiovascular Exam: REGULAR RHYTHM - GI/Abdominal Exam GI & Abdominal Exam: Distended - Rectal Exam Rectal Exam: Deferred - Exam Exam: NORMAL INSPECTION - Extremities Exam Extremities Exam: absent: Pedal Edema - Back Exam Back Exam: absent: CVA tenderness (L), CVA tenderness (R) - Neurological Exam Neurological Exam: Alert, Awake, Oriented x3 Assessment and Plan (1) Pneumonia Status: Acute (2) COPD (chronic obstructive pulmonary disease) Status: Chronic - Assessment and Plan (Free Text) Assessment: cont iv rx for pneumonia cultures so far neg repeat labs in am
--- NOTE | 2018-01-23 16:32 | CP.PCM.PN ---
Subjective - Date & Time of Evaluation Date of Evaluation: 01/23/18 Time of Evaluation: 12:40 - Subjective Subjective: F/U PNA/ COPD Exacerbation. Pt breathing better, no SOB with O2, occasional cough, RUQ abdominal pain. Objective - Vital Signs/Intake and Output Vital Signs (last 24 hours): Temp Pulse Resp BP Pulse Ox 97.5 F L 79 20 104/53 L 92 L 01/23/18 16:29 01/23/18 16:29 01/23/18 16:29 01/23/18 16:29 01/23/18 16:29 - Medications Medications: Current Medications Acetaminophen (Tylenol 325mg Tab) 650 mg PO Q6 PRN PRN Reason: Pain, Mild (1-3) Albuterol/Ipratropium (Duoneb 3 Mg/0.5 Mg (3 Ml) Ud) 3 ml INH RQ4 [facility] Last Admin: 01/23/18 15:28 Dose: 3 ml Amlodipine Besylate (Norvasc) 10 mg PO DAILY [facility] Last Admin: 01/23/18 08:39 Dose: 10 mg Aspirin (Ecotrin) 81 mg PO DAILY [facility] Last Admin: 01/20/18 09:22 Dose: 81 mg Bisoprolol Fumarate (Zebeta) 5 mg PO DAILY [facility] Last Admin: 01/23/18 08:38 Dose: 5 mg Cholecalciferol (Vitamin D) 1,000 intlu PO DAILY [facility] Last Admin: 01/23/18 08:40 Dose: 1,000 intlu Enoxaparin Sodium (Lovenox) 30 mg SC DAILY [facility]; Protocol Last Admin: 01/23/18 08:39 Dose: 30 mg Famotidine (Pepcid) 40 mg PO [facility] Ferrous Gluconate (Fergon) 324 mg PO DAILY [facility] Last Admin: 01/23/18 08:38 Dose: 324 mg Furosemide (Lasix) 40 mg PO DAILY [facility] Last Admin: 01/21/18 09:34 Dose: Not Given Glipizide (Glucotrol) 10 mg PO DAILY [facility] Last Admin: 01/23/18 08:39 Dose: 10 mg Moxifloxacin HCl (Avelox Iv 400mg/250ml Ns) 400 mg in 250 mls @ 250 mls/hr IVPB DAILY [facility]; Protocol Last Admin: 01/23/18 10:47 Dose: 250 mls/hr Meropenem 500 mg/ Sodium (Chloride) 100 mls @ 100 mls/hr IVPB Q8 [facility]; Protocol Last Admin: 01/23/18 16:21 Dose: 100 mls/hr Sodium Chloride (Sodium Chloride 0.45%) 1,000 mls @ 70 mls/hr IV .[id number] [facility] Stop: 01/24/18 09:04 Last Admin: 01/23/18 10:48 Dose: 70 mls/hr Insulin Human Lispro (Humalog) 0 units SC ACHS [facility]; Protocol Last Admin: 01/23/18 12:08 Dose: 3 units Isosorbide Mononitrate (Imdur Er) 30 mg PO DAILY [facility] Last Admin: 01/23/18 08:40 Dose: 30 mg Losartan Potassium (Cozaar) 50 mg PO DAILY [facility] Last Admin: 01/20/18 09:26 Dose: 50 mg Methylprednisolone (Solu-Medrol) 30 mg IVP Q8 [facility] Last Admin: 01/23/18 16:22 Dose: 30 mg Pantoprazole Sodium (Protonix Ec Tab) 40 mg PO DAILY [facility] Last Admin: 01/23/18 08:40 Dose: 40 mg Pravastatin Sodium (Pravachol) 40 mg PO HS [facility] Last Admin: 01/22/18 21:05 Dose: 40 mg Sitagliptin Phosphate (Januvia) 100 mg PO DAILY [facility] Last Admin: 01/23/18 08:40 Dose: 100 mg Sucralfate (Carafate Tab) 1 gm PO BID [facility] Last Admin: 01/23/18 16:21 Dose: 1 gm - Labs Labs: 01/22/18 05:15 01/23/18 05:15 PT 11.0 Seconds (9.8-13.1) 01/19/18 23:03 INR 1.0 01/19/18 23:03 APTT 27.2 Seconds (25.6-37.1) 01/19/18 23:03 - Constitutional Appears: No Acute Distress - Head Exam Head Exam: NORMAL INSPECTION - Eye Exam Eye Exam: PERRL - ENT Exam ENT Exam: Normal Exam - Neck Exam Neck Exam: Normal Inspection - Respiratory Exam Respiratory Exam: Decreased Breath Sounds (at bases), Rhonchi (b/l), Wheezes (b/l) - Cardiovascular Exam Cardiovascular Exam: REGULAR RHYTHM - GI/Abdominal Exam GI & Abdominal Exam: Soft, Normal Bowel Sounds - Extremities Exam Additional comments: Edema BLE - Neurological Exam Neurological Exam: Alert, Oriented x3 - Psychiatric Exam Psychiatric exam: Normal Mood - Skin Skin Exam: Warm Assessment and Plan (1) Pneumonia Status: Acute (2) COPD exacerbation Status: Acute - Assessment and Plan (Free Text) Plan: Continue Avelox, Merren, Duoneb, Solu-Medrol and rest of Tx.
[2018-01-23] MEDS: Pravastatin Sodium 40 MG TAB PO SCH (21:10)
[2018-01-24] MEDS: Albuterol-Ipratrop 3 mg / 0.5 (3 ml) UD INH SCH ×6 (00:45→19:16)
[2018-01-24] MEDS: MethylPREDNISolone 40 mg Vial IVP SCH ×3 (01:00→17:29)
[2018-01-24] MEDS ORDERED: Oxycodone/Acetaminophen 5/325 mg Tab PO ONE (01:18)
[2018-01-24] MEDS: Meropenem 500 MG in Sodium Chloride 0.9% 100 ML IVPB SCH ×3 (01:29→17:28)
[2018-01-24 05:35] LABS: BASO # 0.2 K/uL (0.0-0.2); HEMOGLOBIN 9.4 g/dL (12.0-16.0); LYMPH # 0.1 K/uL (1.0-4.3); LYMPH % 0.7 % (20.0-40.0); MEAN CELL VOLUME 90.6 fl (81.0-99.0); MEAN CORPUSCULAR HEMOGLOBIN 29.3 pg (27.0-31.0); MEAN CORPUSCULAR HGB CONC 32.3 g/dL (33.0-37.0); MEAN PLATELET VOLUME 7.8 fl (7.2-11.7); MONO # 0.7 K/uL (0.0-0.8); MONO % 4.5 % (0.0-10.0); NEUT # 14.9 K/uL (1.8-7.0); NEUT % 93.8 % (50.0-75.0); NRBC % 0.2 % (0.0-0.0); PLATELET COUNT 411 K/uL (130-400); RBC 3.21 Mil/uL (3.80-5.20); RED CELL DISTRIBUTION WIDTH 14.3 % (11.5-14.5); WHITE BLOOD COUNT 15.9 K/uL (4.8-10.8)
[2018-01-24 06:38] LABS: ALB/GLOB RATIO 0.9 (1.0-2.1); ALBUMIN 3.3 g/dL (3.5-5.0); CALCIUM 7.2 mg/dL (8.4-10.2)
[2018-01-24] MEDS: Insulin Lispro (humaLOG) 100 Units/ml Inj SC SCH ×4 (06:55→21:38)
--- NOTE | 2018-01-24 07:02 | PQF ---
PROVIDER RESPONSE TEXT: Chr Systolic CHF with Ac exacerbation REVIEWER QUERY TEXT: Heart Failure Acuity and Type Congestive Heart Failure is documented in the Medical Record. Received IV Lasix in the ER and then pl aced on Lasix po. Pro BNP 32,000 CXR: Mild pulmonary venous congestive changes with what appear to represent bilateral lower lobe inf iltrates and bilateral effusions.. ECHO from 05/2017: EF 45-50% See report in EMR Please document the type and acuity (includes probable or suspected) of heart failure Such as: Type: -- Combined systolic and diastolic (heart failure with reduced ejection fraction and diastolic) dysfu nction -- Diastolic (HFpEF) -- Systolic (HFrEF) -- Left heart failure -- Right heart failure -- Right heart failure due to left heart failure -- High output failure -- End stage heart failure -- Other, please specify Acuity: -- Acute -- Chronic -- Acute on chronic -- Other, please specify Also please document the underlying cause of the CHF (includes probable or suspected) The patient's Clinical Indicators include: Documentation of a history of CHF. Admitted with SOB. Pro BNP 32,000 CXR: Mild pulmonary venous congestive changes with what appear to represent bilateral lower lobe inf iltrates and bilateral effusions.. ER: IV Lasix ECHO from 05/2017: EF 45-50% See report in EMR Query created by: Zora Handy on 01/21/2018 7:57 AM Electronically signed by: Manpreet Austin 01/24/2018 6:59 AM
--- NOTE | 2018-01-24 08:17 | CP.PCM.PN ---
<Geetha Trent - Last Filed: 01/24/18 14:11> Subjective - Date & Time of Evaluation Date of Evaluation: 01/24/18 Time of Evaluation: 08:17 - Subjective Subjective: Pt seen and evaluated at bedside, disoriented. Reports no feeling well and c/o abdominal pain VSS Objective - Vital Signs/Intake and Output Vital Signs (last 24 hours): Temp Pulse Resp BP Pulse Ox 97.7 F 84 18 119/63 93 L 01/24/18 08:00 01/24/18 08:00 01/24/18 08:00 01/24/18 08:00 01/24/18 08:00 - Medications Medications: Current Medications Acetaminophen (Tylenol 325mg Tab) 650 mg PO Q6 PRN PRN Reason: Pain, Mild (1-3) Albuterol/Ipratropium (Duoneb 3 Mg/0.5 Mg (3 Ml) Ud) 3 ml INH RQ4 [facility] Last Admin: 01/24/18 08:07 Dose: 3 ml Amlodipine Besylate (Norvasc) 10 mg PO DAILY [facility] Last Admin: 01/23/18 08:39 Dose: 10 mg Aspirin (Ecotrin) 81 mg PO DAILY [facility] Last Admin: 01/20/18 09:22 Dose: 81 mg Bisoprolol Fumarate (Zebeta) 5 mg PO DAILY [facility] Last Admin: 01/23/18 08:38 Dose: 5 mg Cholecalciferol (Vitamin D) 1,000 intlu PO DAILY [facility] Last Admin: 01/23/18 08:40 Dose: 1,000 intlu Enoxaparin Sodium (Lovenox) 30 mg SC DAILY [facility]; Protocol Last Admin: 01/23/18 08:39 Dose: 30 mg Famotidine (Pepcid) 40 mg PO HS [facility] Last Admin: 01/23/18 21:10 Dose: 40 mg Ferrous Gluconate (Fergon) 324 mg PO DAILY [facility] Last Admin: 01/23/18 08:38 Dose: 324 mg Furosemide (Lasix) 40 mg PO DAILY [facility] Last Admin: 01/21/18 09:34 Dose: Not Given Glipizide (Glucotrol) 10 mg PO DAILY [facility] Last Admin: 01/23/18 08:39 Dose: 10 mg Moxifloxacin HCl (Avelox Iv 400mg/250ml Ns) 400 mg in 250 mls @ 250 mls/hr IVPB DAILY [facility]; Protocol Last Admin: 01/23/18 10:47 Dose: 250 mls/hr Meropenem 500 mg/ Sodium (Chloride) 100 mls @ 100 mls/hr IVPB Q8 [facility]; Protocol Last Admin: 01/24/18 01:29 Dose: Not Given Sodium Chloride (Sodium Chloride 0.45%) 1,000 mls @ 70 mls/hr IV .[id number] [facility] Stop: 01/24/18 09:04 Last Admin: 01/23/18 10:48 Dose: 70 mls/hr Insulin Human Lispro (Humalog) 0 units SC ACHS [facility]; Protocol Last Admin: 01/24/18 06:55 Dose: 6 units Isosorbide Mononitrate (Imdur Er) 30 mg PO DAILY [facility] Last Admin: 01/23/18 08:40 Dose: 30 mg Losartan Potassium (Cozaar) 50 mg PO DAILY [facility] Last Admin: 01/20/18 09:26 Dose: 50 mg Methylprednisolone (Solu-Medrol) 20 mg IVP Q8 [facility] Pantoprazole Sodium (Protonix Ec Tab) 40 mg PO DAILY [facility] Last Admin: 01/23/18 08:40 Dose: 40 mg Pravastatin Sodium (Pravachol) 40 mg PO HS [facility] Last Admin: 01/23/18 21:10 Dose: 40 mg Sitagliptin Phosphate (Januvia) 100 mg PO DAILY [facility] Last Admin: 01/23/18 08:40 Dose: 100 mg Sucralfate (Carafate Tab) 1 gm PO BID [facility] Last Admin: 01/23/18 16:21 Dose: 1 gm - Labs Labs: 01/24/18 04:50 01/24/18 04:50 PT 11.0 Seconds (9.8-13.1) 01/19/18 23:03 INR 1.0 01/19/18 23:03 APTT 27.2 Seconds (25.6-37.1) 01/19/18 23:03 - Constitutional Appears: No Acute Distress - Head Exam Head Exam: NORMAL INSPECTION - Eye Exam Eye Exam: EOMI - Respiratory Exam Respiratory Exam: Decreased Breath Sounds, Rhonchi, Wheezes (b/l) - Cardiovascular Exam Cardiovascular Exam: REGULAR RHYTHM, +S1, +S2 - GI/Abdominal Exam GI & Abdominal Exam: Soft, Tenderness (upper ). absent: Distended, Guarding - Extremities Exam Extremities Exam: absent: Pedal Edema - Neurological Exam Neurological Exam: Alert, Awake. absent: Oriented x3 - Skin Skin Exam: Dry, Warm Assessment and Plan - Assessment and Plan (Free Text) Assessment: 77 yo female patient admitted due to pneumonia, unspecified type, now with upper abdominal pain. Today with AMS. Plan: - afebrile, no chest pain, VS stable - CXR today showed improvement - GI consulted, input appreciated - ID on board, input appreciated - Pulmonology on board, input appreciated - HIDA and US negative for cholecystitis - LFT wnl - Abdominal pain likely from BL lower lobe PNA - sputum cx: positive for yeasts - Mycoplasma IgM positive - f/u head CT - continue plan as ordered Case seen and examined with Dr Austin <Manpreet Austin - Last Filed: 01/26/18 08:15> Objective - Vital Signs/Intake and Output Vital Signs (last 24 hours): Temp Pulse Resp BP Pulse Ox 98.2 F 79 18 114/66 92 L 01/26/18 04:51 01/26/18 04:51 01/26/18 07:29 01/26/18 04:51 01/26/18 04:51 - Medications Medications: Current Medications Acetaminophen (Tylenol 325mg Tab) 650 mg PO Q6 PRN PRN Reason: Pain, Mild (1-3) Last Admin: 01/25/18 20:58 Dose: 650 mg Albuterol/Ipratropium (Duoneb 3 Mg/0.5 Mg (3 Ml) Ud) 3 ml INH RQ4 [facility] Last Admin: 01/26/18 07:29 Dose: Not Given Amlodipine Besylate (Norvasc) 10 mg PO DAILY [facility] Last Admin: 01/25/18 09:31 Dose: 10 mg Aspirin (Ecotrin) 81 mg PO DAILY [facility] Last Admin: 01/20/18 09:22 Dose: 81 mg Bisoprolol Fumarate (Zebeta) 5 mg PO DAILY [facility] Last Admin: 01/25/18 09:31 Dose: 5 mg Cholecalciferol (Vitamin D) 1,000 intlu PO DAILY [facility] Last Admin: 01/25/18 09:31 Dose: 1,000 intlu Enoxaparin Sodium (Lovenox) 30 mg SC DAILY [facility]; Protocol Last Admin: 01/25/18 09:32 Dose: 30 mg Famotidine (Pepcid) 40 mg PO HS [facility] Last Admin: 01/25/18 20:58 Dose: 40 mg Ferrous Gluconate (Fergon) 324 mg PO DAILY [facility] Last Admin: 01/25/18 09:31 Dose: 324 mg Furosemide (Lasix) 40 mg PO DAILY [facility] Last Admin: 01/21/18 09:34 Dose: Not Given Glipizide (Glucotrol) 10 mg PO DAILY [facility] Last Admin: 01/25/18 09:31 Dose: 10 mg Moxifloxacin HCl (Avelox Iv 400mg/250ml Ns) 400 mg in 250 mls @ 250 mls/hr IVPB DAILY [facility]; Protocol Last Admin: 01/25/18 09:29 Dose: 250 mls/hr Meropenem 500 mg/ Sodium (Chloride) 100 mls @ 100 mls/hr IVPB Q8 [facility]; Protocol Last Admin: 01/26/18 00:13 Dose: 100 mls/hr Insulin Human Lispro (Humalog) 0 units SC ACHS [facility]; Protocol Last Admin: 01/25/18 22:46 Dose: Not Given Isosorbide Mononitrate (Imdur Er) 30 mg PO DAILY [facility] Last Admin: 01/25/18 09:31 Dose: 30 mg Losartan Potassium (Cozaar) 50 mg PO DAILY [facility] Last Admin: 01/20/18 09:26 Dose: 50 mg Methylprednisolone (Solu-Medrol) 20 mg IVP Q8 [facility] Last Admin: 01/26/18 00:13 Dose: 20 mg Pantoprazole Sodium (Protonix Ec Tab) 40 mg PO DAILY [facility] Last Admin: 01/25/18 09:31 Dose: 40 mg Pravastatin Sodium (Pravachol) 40 mg PO HS [facility] Last Admin: 01/25/18 20:59 Dose: 40 mg Sitagliptin Phosphate (Januvia) 100 mg PO DAILY [facility] Last Admin: 01/25/18 09:31 Dose: 100 mg Sucralfate (Carafate Tab) 1 gm PO BID [facility] Last Admin: 01/25/18 17:27 Dose: 1 gm - Labs Labs: 01/26/18 05:40 01/25/18 04:50 PT 11.0 Seconds (9.8-13.1) 01/19/18 23:03 INR 1.0 01/19/18 23:03 APTT 27.2 Seconds (25.6-37.1) 01/19/18 23:03 Assessment and Plan - Assessment and Plan (Free Text) Assessment: Patient was personally seen and examined by me in rounds with residents. Available labs and diagnostic data reviewed. Case, Patient's condition and management plan discussed with residents in rounds. Agree with resident's progress note. Plan: As ordered.
[2018-01-24 08:47] LABS: HYPOCHROMIC SLIGHT; LYMPHOCYTE 2 % (20-50); MONOCYTE 9 % (0-10); NEUTROPHIL 89 % (42-75); OVALOCYTES SLIGHT; PLATELET ESTIMATE SLIGHTLY INCREASED (NORMAL); TOTAL CELLS COUNTED 100
[2018-01-24] MEDS ORDERED: Sodium Chloride 0.45% 1,000 ML IV SCH (09:30)
--- NOTE | 2018-01-24 09:44 | CP.PCM.PN ---
<Jason,Hilary - Last Filed: 01/24/18 09:42> Subjective - Date & Time of Evaluation Date of Evaluation: 01/24/18 Time of Evaluation: 09:00 - Subjective Subjective: GI Fellow PGY5 Progress Note Pt seen and evaluated at bedside, now doing well, disoriented. Able to swallow food but no appetite. ROS: A 12pt ROS was negative except as above. Objective - Vital Signs/Intake and Output Vital Signs (last 24 hours): Temp Pulse Resp BP Pulse Ox 97.7 F 84 18 119/63 93 L 01/24/18 08:00 01/24/18 08:00 01/24/18 08:00 01/24/18 08:00 01/24/18 08:00 - Medications Medications: Current Medications Acetaminophen (Tylenol 325mg Tab) 650 mg PO Q6 PRN PRN Reason: Pain, Mild (1-3) Albuterol/Ipratropium (Duoneb 3 Mg/0.5 Mg (3 Ml) Ud) 3 ml INH RQ4 [facility] Last Admin: 01/24/18 08:07 Dose: 3 ml Amlodipine Besylate (Norvasc) 10 mg PO DAILY [facility] Last Admin: 01/23/18 08:39 Dose: 10 mg Aspirin (Ecotrin) 81 mg PO DAILY [facility] Last Admin: 01/20/18 09:22 Dose: 81 mg Bisoprolol Fumarate (Zebeta) 5 mg PO DAILY [facility] Last Admin: 01/23/18 08:38 Dose: 5 mg Cholecalciferol (Vitamin D) 1,000 intlu PO DAILY [facility] Last Admin: 01/23/18 08:40 Dose: 1,000 intlu Enoxaparin Sodium (Lovenox) 30 mg SC DAILY [facility]; Protocol Last Admin: 01/23/18 08:39 Dose: 30 mg Famotidine (Pepcid) 40 mg PO HS [facility] Last Admin: 01/23/18 21:10 Dose: 40 mg Ferrous Gluconate (Fergon) 324 mg PO DAILY [facility] Last Admin: 01/23/18 08:38 Dose: 324 mg Furosemide (Lasix) 40 mg PO DAILY [facility] Last Admin: 01/21/18 09:34 Dose: Not Given Glipizide (Glucotrol) 10 mg PO DAILY [facility] Last Admin: 01/23/18 08:39 Dose: 10 mg Moxifloxacin HCl (Avelox Iv 400mg/250ml Ns) 400 mg in 250 mls @ 250 mls/hr IVPB DAILY [facility]; Protocol Last Admin: 01/23/18 10:47 Dose: 250 mls/hr Meropenem 500 mg/ Sodium (Chloride) 100 mls @ 100 mls/hr IVPB Q8 [facility]; Protocol Last Admin: 01/24/18 01:29 Dose: Not Given Sodium Chloride (Sodium Chloride 0.45%) 1,000 mls @ 70 mls/hr IV .[id number] [facility] Stop: 01/25/18 09:30 Insulin Human Lispro (Humalog) 0 units SC ACHS [facility]; Protocol Last Admin: 01/24/18 06:55 Dose: 6 units Isosorbide Mononitrate (Imdur Er) 30 mg PO DAILY [facility] Last Admin: 01/23/18 08:40 Dose: 30 mg Losartan Potassium (Cozaar) 50 mg PO DAILY [facility] Last Admin: 01/20/18 09:26 Dose: 50 mg Methylprednisolone (Solu-Medrol) 20 mg IVP Q8 [facility] Pantoprazole Sodium (Protonix Ec Tab) 40 mg PO DAILY [facility] Last Admin: 01/23/18 08:40 Dose: 40 mg Pravastatin Sodium (Pravachol) 40 mg PO HS [facility] Last Admin: 01/23/18 21:10 Dose: 40 mg Sitagliptin Phosphate (Januvia) 100 mg PO DAILY [facility] Last Admin: 01/23/18 08:40 Dose: 100 mg Sucralfate (Carafate Tab) 1 gm PO BID [facility] Last Admin: 01/23/18 16:21 Dose: 1 gm - Labs Labs: 01/24/18 04:50 01/24/18 04:50 PT 11.0 Seconds (9.8-13.1) 01/19/18 23:03 INR 1.0 01/19/18 23:03 APTT 27.2 Seconds (25.6-37.1) 01/19/18 23:03 - Constitutional Appears: Non-toxic, No Acute Distress, Confused - Head Exam Head Exam: ATRAUMATIC, NORMAL INSPECTION, NORMOCEPHALIC - Eye Exam Eye Exam: EOMI, Normal appearance, PERRL - ENT Exam ENT Exam: Mucous Membranes Moist - Respiratory Exam Respiratory Exam: Rhonchi - Cardiovascular Exam Cardiovascular Exam: RRR, +S1, +S2 - GI/Abdominal Exam GI & Abdominal Exam: Soft, Normal Bowel Sounds. absent: Distended, Firm, Guarding - Extremities Exam Extremities Exam: Full ROM, Normal Inspection - Neurological Exam Neurological Exam: Alert, Awake - Psychiatric Exam Psychiatric exam: Normal Affect, Normal Mood - Skin Skin Exam: Dry, Intact, Normal Color, Warm Assessment and Plan - Assessment and Plan (Free Text) Assessment: 1. Dilated distal esophagus on CT imaging 2. GERD 3. BL PNA 4. Upper abdominal pain Plan: -Continue supportive care -PPI po daily, Pepcid at night for GERD -No signs of food bolus, continue diet as tolerated, no dysphagia, +poor appetite due to PNA -Pt will benefit from CT with po contrast of chest and abdomen to further evaluate esophagus once medically stable from acute PNA and ARF to r/o underlying malignancy, achalasia, stricture -Abdominal pain likely from BL lower lobe PNA -Abd US and HIDA scan negative for acute jass, +gallstones -LFTs wnl -Pt with rising BUN/CR and AMS, recommend renal followup -Please call with any questions or concerns <Toney Alfred - Last Filed: 01/31/18 09:10> Objective - Vital Signs/Intake and Output Vital Signs (last 24 hours): Temp Pulse Resp BP Pulse Ox 98.1 F 99 H 20 136/58 L 95 01/31/18 08:20 01/31/18 08:20 01/31/18 08:20 01/31/18 08:20 01/31/18 08:20 - Medications Medications: Current Medications Acetaminophen (Tylenol 325mg Tab) 650 mg PO Q6 PRN PRN Reason: Pain, Mild (1-3) Last Admin: 01/27/18 21:43 Dose: 650 mg Albuterol/Ipratropium (Duoneb 3 Mg/0.5 Mg (3 Ml) Ud) 3 ml INH RQ4 [facility] Last Admin: 01/31/18 08:16 Dose: 3 ml Amlodipine Besylate (Norvasc) 10 mg PO DAILY [facility] Last Admin: 01/30/18 16:09 Dose: Not Given Aspirin (Ecotrin) 81 mg PO DAILY [facility] Last Admin: 01/20/18 09:22 Dose: 81 mg Bisoprolol Fumarate (Zebeta) 10 mg PO DAILY [facility] Cholecalciferol (Vitamin D) 1,000 intlu PO DAILY [facility] Last Admin: 01/30/18 15:11 Dose: Not Given Famotidine (Pepcid) 40 mg PO HS [facility] Last Admin: 01/30/18 22:10 Dose: 40 mg Ferrous Gluconate (Fergon) 324 mg PO DAILY [facility] Last Admin: 01/30/18 15:43 Dose: Not Given Furosemide (Lasix) 40 mg PO DAILY [facility] Last Admin: 01/21/18 09:34 Dose: Not Given Glipizide (Glucotrol) 10 mg PO DAILY [facility] Last Admin: 01/30/18 15:53 Dose: Not Given Meropenem 500 mg/ Sodium (Chloride) 100 mls @ 100 mls/hr IVPB Q24H [facility]; Prot ocol Last Admin: 01/30/18 13:37 Dose: 100 mls/hr Fluconazole (Diflucan Iv 100 Mg/50 Ml Ns) 50 mls @ 50 mls/hr IVPB DAILY [facility]; Protocol Last Admin: 01/30/18 13:32 Dose: 50 mls/hr Insulin Human Lispro (Humalog) 0 units SC ACHS [facility]; Protocol Last Admin: 01/31/18 06:31 Dose: 3 units Isosorbide Mononitrate (Imdur Er) 30 mg PO DAILY [facility] Last Admin: 01/30/18 16:09 Dose: Not Given Lidocaine (Lidoderm) 1 ea TD DAILY [facility] Last Admin: 01/30/18 13:37 Dose: 1 ea Methylprednisolone (Solu-Medrol) 10 mg IVP Q8 [facility] Last Admin: 01/31/18 01:55 Dose: 10 mg Pantoprazole Sodium (Protonix Ec Tab) 40 mg PO DAILY [facility] Last Admin: 01/30/18 11:03 Dose: Not Given Pravastatin Sodium (Pravachol) 40 mg PO HS [facility] Last Admin: 01/30/18 22:10 Dose: 40 mg Sitagliptin Phosphate (Januvia) 100 mg PO DAILY [facility] Last Admin: 01/30/18 16:09 Dose: Not Given Sucralfate (Carafate Tab) 1 gm PO BID [facility] Last Admin: 01/30/18 17:15 Dose: 1 gm - Labs Labs: 01/31/18 06:30 01/31/18 06:30 PT 11.0 Seconds (9.8-13.1) 01/19/18 23:03 INR 1.0 01/19/18 23:03 APTT 27.2 Seconds (25.6-37.1) 01/19/18 23:03 Assessment and Plan - Assessment and Plan (Free Text) Plan: Patient seen and examined Discussed with fellow and agree with above Toney Alfred MD, PhD
[2018-01-24] MEDS: Moxifloxacin IV 400mg/250ml NS 400 MG/250 ML BAG IVPB SCH (09:50)
[2018-01-24] MEDS: Enoxaparin 30 mg Syringe SC SCH (09:55)
[2018-01-24] MEDS: Pantoprazole 40 mg EC Tab PO SCH (09:57)
[2018-01-24] MEDS: Cholecalciferol 1,000 INTLU TAB PO SCH (09:57)
[2018-01-24 10:14] LABS: ABG ALLEN TEST YES; ARTERIAL BLOOD GAS HCO3 14.9 mmol/L (21-28); ARTERIAL BLOOD GAS O2 SAT 82.8 % (95-98); ARTERIAL BLOOD GAS PCO2 32 mm/Hg (35-45); ARTERIAL BLOOD GAS PH 7.25 (7.35-7.45); ARTERIAL BLOOD GAS PO2 47 mm/Hg (80-100)
[2018-01-24] MEDS ORDERED: Enoxaparin 60 mg Syringe SC STA (11:30)
--- NOTE | 2018-01-24 11:32 | CT ---
Date of service: 01/24/2018 PROCEDURE: CT HEAD WITHOUT CONTRAST. HISTORY: Altered mental status. COMPARISON: 04/26/2016 TECHNIQUE: Axial computed tomography images were obtained through the head/brain without intravenous contrast. Supplemental Coronal and Sagittal projections created and reviewed. Radiation dose: Total exam DLP = 782.29 mGy-cm. This CT exam was performed using one or more of the following dose reduction techniques: Automated exposure control, adjustment of the mA and/or kV according to patient size, and/or use of iterative reconstruction technique. FINDINGS: HEMORRHAGE: No intracranial hemorrhage. BRAIN: No mass effect or edema. Cortical atrophy and chronic microvascular ischemic change. VENTRICLES: Unremarkable. No hydrocephalus. CALVARIUM: Unremarkable. PARANASAL SINUSES: Unremarkable as visualized. No significant inflammatory changes. MASTOID AIR CELLS: Unremarkable as visualized. No inflammatory changes. OTHER FINDINGS: None. IMPRESSION: No acute intracranial abnormalities. No significant findings to account for the clinical presentation. No significant interval change compared to the prior examination(s).
--- NOTE | 2018-01-24 12:48 | RAD ---
Date of service: 01/24/2018 HISTORY: Follow-up pneumonia. COMPARISON: 01/19/2018. Single-view chest. 01/21/2018 CT thorax TECHNIQUE: Chest PA and lateral FINDINGS: LUNGS: Modest interval improvement in multifocal infiltrates. PLEURA: No significant pleural effusion identified. No pneumothorax apparent. CARDIOVASCULAR: Atherosclerotic calcifications identified primarily aortic arch. Persisting cardiomegaly/pulmonary vascular congestion. OSSEOUS STRUCTURES: No significant abnormalities. VISUALIZED UPPER ABDOMEN: Normal. OTHER FINDINGS: None. IMPRESSION: Improving multifocal infiltrates.
--- NOTE | 2018-01-24 17:34 | CP.PCM.PN ---
Subjective - Date & Time of Evaluation Date of Evaluation: 01/24/18 Time of Evaluation: 11:40 - Subjective Subjective: F/U COPD Exacerbation. No A/D, no SOB on O2. Objective - Vital Signs/Intake and Output Vital Signs (last 24 hours): Temp Pulse Resp BP Pulse Ox 97.5 F L 81 30 H 115/66 90 L 01/24/18 16:11 01/24/18 16:11 01/24/18 16:20 01/24/18 16:11 01/24/18 16:11 - Medications Medications: Current Medications Acetaminophen (Tylenol 325mg Tab) 650 mg PO Q6 PRN PRN Reason: Pain, Mild (1-3) Albuterol/Ipratropium (Duoneb 3 Mg/0.5 Mg (3 Ml) Ud) 3 ml INH RQ4 [facility] Last Admin: 01/24/18 15:57 Dose: 3 ml Amlodipine Besylate (Norvasc) 10 mg PO DAILY [facility] Last Admin: 01/24/18 09:56 Dose: 10 mg Aspirin (Ecotrin) 81 mg PO DAILY [facility] Last Admin: 01/20/18 09:22 Dose: 81 mg Bisoprolol Fumarate (Zebeta) 5 mg PO DAILY [facility] Last Admin: 01/24/18 09:52 Dose: 5 mg Cholecalciferol (Vitamin D) 1,000 intlu PO DAILY [facility] Last Admin: 01/24/18 09:57 Dose: 1,000 intlu Enoxaparin Sodium (Lovenox) 30 mg SC DAILY [facility]; Protocol Last Admin: 01/24/18 09:55 Dose: 30 mg Famotidine (Pepcid) 40 mg PO HS [facility] Last Admin: 01/23/18 21:10 Dose: 40 mg Ferrous Gluconate (Fergon) 324 mg PO DAILY [facility] Last Admin: 01/24/18 09:51 Dose: 324 mg Furosemide (Lasix) 40 mg PO DAILY [facility] Last Admin: 01/21/18 09:34 Dose: Not Given Glipizide (Glucotrol) 10 mg PO DAILY [facility] Last Admin: 01/24/18 09:51 Dose: 10 mg Moxifloxacin HCl (Avelox Iv 400mg/250ml Ns) 400 mg in 250 mls @ 250 mls/hr IVPB DAILY [facility]; Protocol Last Admin: 01/24/18 09:50 Dose: 250 mls/hr Meropenem 500 mg/ Sodium (Chloride) 100 mls @ 100 mls/hr IVPB Q8 [facility]; Protocol Last Admin: 01/24/18 17:28 Dose: 100 mls/hr Sodium Chloride (Sodium Chloride 0.45%) 1,000 mls @ 70 mls/hr IV .[id number] [facility] Stop: 01/25/18 09:30 Last Admin: 01/24/18 12:30 Dose: 70 mls/hr Insulin Human Lispro (Humalog) 0 units SC ACHS [facility]; Protocol Last Admin: 01/24/18 17:22 Dose: 2 units Isosorbide Mononitrate (Imdur Er) 30 mg PO DAILY [facility] Last Admin: 01/24/18 09:55 Dose: 30 mg Losartan Potassium (Cozaar) 50 mg PO DAILY [facility] Last Admin: 01/20/18 09:26 Dose: 50 mg Methylprednisolone (Solu-Medrol) 20 mg IVP Q8 [facility] Last Admin: 01/24/18 17:29 Dose: 20 mg Pantoprazole Sodium (Protonix Ec Tab) 40 mg PO DAILY [facility] Last Admin: 01/24/18 09:57 Dose: 40 mg Pravastatin Sodium (Pravachol) 40 mg PO HS [facility] Last Admin: 01/23/18 21:10 Dose: 40 mg Sitagliptin Phosphate (Januvia) 100 mg PO DAILY [facility] Last Admin: 01/24/18 11:31 Dose: 100 mg Sucralfate (Carafate Tab) 1 gm PO BID [facility] Last Admin: 01/24/18 17:21 Dose: 1 gm - Labs Labs: 01/24/18 04:50 01/24/18 04:50 PT 11.0 Seconds (9.8-13.1) 01/19/18 23:03 INR 1.0 01/19/18 23:03 APTT 27.2 Seconds (25.6-37.1) 01/19/18 23:03 - Constitutional Appears: No Acute Distress - Head Exam Head Exam: NORMAL INSPECTION - Eye Exam Eye Exam: PERRL - ENT Exam ENT Exam: Normal Exam - Neck Exam Neck Exam: Normal Inspection - Respiratory Exam Respiratory Exam: Decreased Breath Sounds (at bases), Rhonchi (b/l), Wheezes (b/l) - Cardiovascular Exam Cardiovascular Exam: REGULAR RHYTHM - GI/Abdominal Exam GI & Abdominal Exam: Soft, Normal Bowel Sounds - Extremities Exam Additional comments: Edema BLE - Neurological Exam Neurological Exam: Alert, Oriented x3 - Psychiatric Exam Psychiatric exam: Normal Mood - Skin Skin Exam: Warm Assessment and Plan (1) Pneumonia Status: Acute (2) COPD exacerbation Status: Acute - Assessment and Plan (Free Text) Plan: Continue Avelox, Merren, Duoneb, Solu-Medrol Normal HIDA scan.
--- NOTE | 2018-01-24 18:19 | CP.PCM.PN ---
Subjective - Date & Time of Evaluation Date of Evaluation: 01/24/18 Time of Evaluation: 09:00 - Subjective Subjective: afeb on antibiotics/ WBC lower Mycoplasma IgM + ON Merrrem + Avelox Objective - Vital Signs/Intake and Output Vital Signs (last 24 hours): Temp Pulse Resp BP Pulse Ox 97.5 F L 81 30 H 115/66 90 L 01/24/18 16:11 01/24/18 16:11 01/24/18 16:20 01/24/18 16:11 01/24/18 16:11 - Medications Medications: Current Medications Acetaminophen (Tylenol 325mg Tab) 650 mg PO Q6 PRN PRN Reason: Pain, Mild (1-3) Albuterol/Ipratropium (Duoneb 3 Mg/0.5 Mg (3 Ml) Ud) 3 ml INH RQ4 [facility] Last Admin: 01/24/18 15:57 Dose: 3 ml Amlodipine Besylate (Norvasc) 10 mg PO DAILY [facility] Last Admin: 01/24/18 09:56 Dose: 10 mg Aspirin (Ecotrin) 81 mg PO DAILY [facility] Last Admin: 01/20/18 09:22 Dose: 81 mg Bisoprolol Fumarate (Zebeta) 5 mg PO DAILY [facility] Last Admin: 01/24/18 09:52 Dose: 5 mg Cholecalciferol (Vitamin D) 1,000 intlu PO DAILY [facility] Last Admin: 01/24/18 09:57 Dose: 1,000 intlu Enoxaparin Sodium (Lovenox) 30 mg SC DAILY [facility]; Protocol Last Admin: 01/24/18 09:55 Dose: 30 mg Famotidine (Pepcid) 40 mg PO HS [facility] Last Admin: 01/23/18 21:10 Dose: 40 mg Ferrous Gluconate (Fergon) 324 mg PO DAILY [facility] Last Admin: 01/24/18 09:51 Dose: 324 mg Furosemide (Lasix) 40 mg PO DAILY [facility] Last Admin: 01/21/18 09:34 Dose: Not Given Glipizide (Glucotrol) 10 mg PO DAILY [facility] Last Admin: 01/24/18 09:51 Dose: 10 mg Moxifloxacin HCl (Avelox Iv 400mg/250ml Ns) 400 mg in 250 mls @ 250 mls/hr IVPB DAILY [facility]; Protocol Last Admin: 01/24/18 09:50 Dose: 250 mls/hr Meropenem 500 mg/ Sodium (Chloride) 100 mls @ 100 mls/hr IVPB Q8 [facility]; Protocol Last Admin: 01/24/18 17:28 Dose: 100 mls/hr Sodium Chloride (Sodium Chloride 0.45%) 1,000 mls @ 70 mls/hr IV .[id number] [facility] Stop: 01/25/18 09:30 Last Admin: 01/24/18 12:30 Dose: 70 mls/hr Insulin Human Lispro (Humalog) 0 units SC ACHS [facility]; Protocol Last Admin: 01/24/18 17:22 Dose: 2 units Isosorbide Mononitrate (Imdur Er) 30 mg PO DAILY [facility] Last Admin: 01/24/18 09:55 Dose: 30 mg Losartan Potassium (Cozaar) 50 mg PO DAILY [facility] Last Admin: 01/20/18 09:26 Dose: 50 mg Methylprednisolone (Solu-Medrol) 20 mg IVP Q8 [facility] Last Admin: 01/24/18 17:29 Dose: 20 mg Pantoprazole Sodium (Protonix Ec Tab) 40 mg PO DAILY [facility] Last Admin: 01/24/18 09:57 Dose: 40 mg Pravastatin Sodium (Pravachol) 40 mg PO HS [facility] Last Admin: 01/23/18 21:10 Dose: 40 mg Sitagliptin Phosphate (Januvia) 100 mg PO DAILY [facility] Last Admin: 01/24/18 11:31 Dose: 100 mg Sucralfate (Carafate Tab) 1 gm PO BID [facility] Last Admin: 01/24/18 17:21 Dose: 1 gm - Labs Labs: 01/24/18 04:50 01/24/18 04:50 PT 11.0 Seconds (9.8-13.1) 01/19/18 23:03 INR 1.0 01/19/18 23:03 APTT 27.2 Seconds (25.6-37.1) 01/19/18 23:03 - Constitutional Appears: Confused, Cachectic, Chronically Ill - Head Exam Head Exam: NORMOCEPHALIC - Eye Exam Eye Exam: absent: Scleral icterus - ENT Exam ENT Exam: Mucous Membranes Dry - Neck Exam Neck Exam: absent: Lymphadenopathy - Respiratory Exam Respiratory Exam: Decreased Breath Sounds - Cardiovascular Exam Cardiovascular Exam: REGULAR RHYTHM - GI/Abdominal Exam GI & Abdominal Exam: Distended, Soft - Rectal Exam Rectal Exam: Deferred - Exam Exam: NORMAL INSPECTION Assessment and Plan (1) Pneumonia Status: Acute (2) COPD (chronic obstructive pulmonary disease) Status: Chronic - Assessment and Plan (Free Text) Assessment: Mycoplasma IgM + ON Merrrem + Avelox
[2018-01-24] MEDS: Pravastatin Sodium 40 MG TAB PO SCH (21:31)
[2018-01-24] MEDS ORDERED: Oxycodone/Acetaminophen 5/325 mg Tab PO PRN ×2 (22:11→22:12)
[2018-01-25] MEDS: Albuterol-Ipratrop 3 mg / 0.5 (3 ml) UD INH SCH ×7 (00:22→23:48)
[2018-01-25] MEDS: Meropenem 500 MG in Sodium Chloride 0.9% 100 ML IVPB SCH ×3 (01:17→17:24)
[2018-01-25] MEDS: MethylPREDNISolone 40 mg Vial IVP SCH ×3 (01:20→17:25)
[2018-01-25 05:38] LABS: HEMOGLOBIN 9.4 g/dL (12.0-16.0); MEAN CELL VOLUME 89.8 fl (81.0-99.0); MEAN CORPUSCULAR HEMOGLOBIN 29.4 pg (27.0-31.0); MEAN CORPUSCULAR HGB CONC 32.7 g/dL (33.0-37.0); RBC 3.2 Mil/uL (3.80-5.20); RED CELL DISTRIBUTION WIDTH 14.4 % (11.5-14.5); WHITE BLOOD COUNT 15.5 K/uL (4.8-10.8)
[2018-01-25 06:08] LABS: ALBUMIN 3.3 g/dL (3.5-5.0); CALCIUM 7.4 mg/dL (8.4-10.2)
[2018-01-25] MEDS: Insulin Lispro (humaLOG) 100 Units/ml Inj SC SCH ×4 (06:39→22:46)
--- NOTE | 2018-01-25 06:44 | PQF ---
PROVIDER RESPONSE TEXT: hyponatrimia REVIEWER QUERY TEXT: Clarification of Clinical Diagnostic Findings Please clarify documentation or clinical relevance for the clinical / diagnostic findings of the low Na level or whether those are insignificant or unable to be further specified. Na level 131, 130, 129. The patient's Clinical Indicators include: Na level 131, 130, 129. Chemistry being monitored. Query created by: Zora Handy on 01/22/2018 11:22 AM Electronically signed by: Manpreet Austin 01/25/2018 6:42 AM
--- NOTE | 2018-01-25 06:49 | CP.PCM.PN ---
<Jason,Hilary - Last Filed: 01/25/18 06:55> Subjective - Date & Time of Evaluation Date of Evaluation: 01/25/18 Time of Evaluation: 06:00 - Subjective Subjective: GI Fellow PGY5 Progress Note Pt seen and evaluated, pt altered this am, very drowsy and difficult to arouse. Pt Sob overnight and further workup pending. ROS: A 12pt ROS was negative except as above. Objective - Vital Signs/Intake and Output Vital Signs (last 24 hours): Temp Pulse Resp BP Pulse Ox 98.3 F 78 16 119/69 98 01/25/18 05:24 01/25/18 05:24 01/25/18 05:24 01/25/18 05:24 01/25/18 05:24 - Medications Medications: Current Medications Acetaminophen (Tylenol 325mg Tab) 650 mg PO Q6 PRN PRN Reason: Pain, Mild (1-3) Last Admin: 01/24/18 21:55 Dose: 650 mg Albuterol/Ipratropium (Duoneb 3 Mg/0.5 Mg (3 Ml) Ud) 3 ml INH RQ4 [facility] Last Admin: 01/25/18 04:55 Dose: 3 ml Amlodipine Besylate (Norvasc) 10 mg PO DAILY [facility] Last Admin: 01/24/18 09:56 Dose: 10 mg Aspirin (Ecotrin) 81 mg PO DAILY [facility] Last Admin: 01/20/18 09:22 Dose: 81 mg Bisoprolol Fumarate (Zebeta) 5 mg PO DAILY [facility] Last Admin: 01/24/18 09:52 Dose: 5 mg Cholecalciferol (Vitamin D) 1,000 intlu PO DAILY [facility] Last Admin: 01/24/18 09:57 Dose: 1,000 intlu Enoxaparin Sodium (Lovenox) 30 mg SC DAILY [facility]; Protocol Last Admin: 01/24/18 09:55 Dose: 30 mg Famotidine (Pepcid) 40 mg PO HS [facility] Last Admin: 01/24/18 21:30 Dose: 40 mg Ferrous Gluconate (Fergon) 324 mg PO DAILY [facility] Last Admin: 01/24/18 09:51 Dose: 324 mg Furosemide (Lasix) 40 mg PO DAILY [facility] Last Admin: 01/21/18 09:34 Dose: Not Given Glipizide (Glucotrol) 10 mg PO DAILY [facility] Last Admin: 01/24/18 09:51 Dose: 10 mg Moxifloxacin HCl (Avelox Iv 400mg/250ml Ns) 400 mg in 250 mls @ 250 mls/hr IVPB DAILY [facility]; Protocol Last Admin: 01/24/18 09:50 Dose: 250 mls/hr Meropenem 500 mg/ Sodium (Chloride) 100 mls @ 100 mls/hr IVPB Q8 [facility]; Protocol Last Admin: 01/25/18 01:17 Dose: 100 mls/hr Sodium Bicarbonate 75 meq/ (Sodium Chloride) 1,075 mls @ 70 mls/hr IV .[id number] [facility] Stop: 01/25/18 20:01 Last Admin: 01/24/18 20:41 Dose: 70 mls/hr Insulin Human Lispro (Humalog) 0 units SC ACHS [facility]; Protocol Last Admin: 01/25/18 06:39 Dose: Not Given Isosorbide Mononitrate (Imdur Er) 30 mg PO DAILY [facility] Last Admin: 01/24/18 09:55 Dose: 30 mg Losartan Potassium (Cozaar) 50 mg PO DAILY [facility] Last Admin: 01/20/18 09:26 Dose: 50 mg Methylprednisolone (Solu-Medrol) 20 mg IVP Q8 [facility] Last Admin: 01/25/18 01:20 Dose: 20 mg Oxycodone/Acetaminophen (Percocet 5/325 Mg Tab) 1 tab PO Q4 PRN PRN Reason: Pain, moderate (4-7) Stop: 01/27/18 22:12 Last Admin: 01/24/18 23:45 Dose: 1 tab Oxycodone/Acetaminophen (Percocet 5/325 Mg Tab) 2 tab PO Q6 PRN PRN Reason: Pain, severe (8-10) Stop: 01/27/18 22:13 Pantoprazole Sodium (Protonix Ec Tab) 40 mg PO DAILY [facility] Last Admin: 01/24/18 09:57 Dose: 40 mg Pravastatin Sodium (Pravachol) 40 mg PO HS [facility] Last Admin: 01/24/18 21:31 Dose: 40 mg Sitagliptin Phosphate (Januvia) 100 mg PO DAILY [facility] Last Admin: 01/24/18 11:31 Dose: 100 mg Sucralfate (Carafate Tab) 1 gm PO BID [facility] Last Admin: 01/24/18 17:21 Dose: 1 gm - Labs Labs: 01/25/18 04:50 01/25/18 04:50 PT 11.0 Seconds (9.8-13.1) 01/19/18 23:03 INR 1.0 01/19/18 23:03 APTT 27.2 Seconds (25.6-37.1) 01/19/18 23:03 - Constitutional Appears: Confused, Chronically Ill - Head Exam Head Exam: ATRAUMATIC, NORMAL INSPECTION, NORMOCEPHALIC - Eye Exam Pupil Exam: PERRL - Respiratory Exam Respiratory Exam: Respiratory Distress - Cardiovascular Exam Cardiovascular Exam: RRR, +S1, +S2 - GI/Abdominal Exam GI & Abdominal Exam: Soft, Normal Bowel Sounds. absent: Tenderness, Organomegaly - Extremities Exam Extremities Exam: Full ROM - Skin Skin Exam: Dry, Intact, Normal Color, Warm Assessment and Plan - Assessment and Plan (Free Text) Assessment: 1. Dilated distal esophagus on CT imaging 2. GERD 3. BL PNA 4. Upper abdominal pain 5. AMS 6. Hypoxia Plan: -Continue supportive care -PPI po daily, Pepcid at night for GERD -No signs of food bolus, continue diet as tolerated, no dysphagia, +poor appetite due to PNA -Pt will benefit from CT with po contrast of chest and abdomen to further evaluate esophagus once medically stable from acute PNA and ARF to r/o underlying malignancy, achalasia, stricture -Abdominal pain likely from BL lower lobe PNA -+Mycoplasm, IV abx per ID -Abd US and HIDA scan negative for acute jass, +gallstones -LFTs wnl -Pt with rising BUN/CR and AMS, recommend renal consult and possible need for HD -Pt drowsy this am and difficult to arouse, CT Chest and V/Q scan pending -Recommend ICU/Pulm evaluation and ABG, discussed with nursing staff -Please call with any questions or concerns <Toney Alfred - Last Filed: 01/31/18 09:08> Objective - Vital Signs/Intake and Output Vital Signs (last 24 hours): Temp Pulse Resp BP Pulse Ox 98.1 F 99 H 20 136/58 L 95 01/31/18 08:20 01/31/18 08:20 01/31/18 08:20 01/31/18 08:20 01/31/18 08:20 - Medications Medications: Current Medications Acetaminophen (Tylenol 325mg Tab) 650 mg PO Q6 PRN PRN Reason: Pain, Mild (1-3) Last Admin: 01/27/18 21:43 Dose: 650 mg Albuterol/Ipratropium (Duoneb 3 Mg/0.5 Mg (3 Ml) Ud) 3 ml INH RQ4 [facility] Last Admin: 01/31/18 08:16 Dose: 3 ml Amlodipine Besylate (Norvasc) 10 mg PO DAILY [facility] Last Admin: 01/30/18 16:09 Dose: Not Given Aspirin (Ecotrin) 81 mg PO DAILY [facility] Last Admin: 01/20/18 09:22 Dose: 81 mg Bisoprolol Fumarate (Zebeta) 10 mg PO DAILY [facility] Cholecalciferol (Vitamin D) 1,000 intlu PO DAILY [facility] Last Admin: 01/30/18 15:11 Dose: Not Given Famotidine (Pepcid) 40 mg PO HS [facility] Last Admin: 01/30/18 22:10 Dose: 40 mg Ferrous Gluconate (Fergon) 324 mg PO DAILY [facility] Last Admin: 01/30/18 15:43 Dose: Not Given Furosemide (Lasix) 40 mg PO DAILY [facility] Last Admin: 01/21/18 09:34 Dose: Not Given Glipizide (Glucotrol) 10 mg PO DAILY [facility] Last Admin: 01/30/18 15:53 Dose: Not Given Meropenem 500 mg/ Sodium (Chloride) 100 mls @ 100 mls/hr IVPB Q24H [facility]; Protocol Last Admin: 01/30/18 13:37 Dose: 100 mls/hr Fluconazole (Diflucan Iv 100 Mg/50 Ml Ns) 50 mls @ 50 mls/hr IVPB DAILY [facility]; Protocol Last Admin: 01/30/18 13:32 Dose: 50 mls/hr Insulin Human Lispro (Humalog) 0 units SC ACHS [facility]; Protocol Last Admin: 01/31/18 06:31 Dose: 3 units Isosorbide Mononitrate (Imdur Er) 30 mg PO DAILY [facility] Last Admin: 01/30/18 16:09 Dose: Not Given Lidocaine (Lidoderm) 1 ea TD DAILY [facility] Last Admin: 01/30/18 13:37 Dose: 1 ea Methylprednisolone (Solu-Medrol) 10 mg IVP Q8 [facility] Last Admin: 01/31/18 01:55 Dose: 10 mg Pantoprazole Sodium (Protonix Ec Tab) 40 mg PO DAILY [facility] Last Admin: 01/30/18 11:03 Dose: Not Given Pravastatin Sodium (Pravachol) 40 mg PO HS [facility] Last Admin: 01/30/18 22:10 Dose: 40 mg Sitagliptin Phosphate (Januvia) 100 mg PO DAILY [facility] Last Admin: 01/30/18 16:09 Dose: Not Given Sucralfate (Carafate Tab) 1 gm PO BID [facility] Last Admin: 01/30/18 17:15 Dose: 1 gm - Labs Labs: 01/31/18 06:30 01/31/18 06:30 PT 11.0 Seconds (9.8-13.1) 01/19/18 23:03 INR 1.0 01/19/18 23:03 APTT 27.2 Seconds (25.6-37.1) 01/19/18 23:03 Assessment and Plan - Assessment and Plan (Free Text) Plan: Patient seen and examined Discussed with fellow and agree with above Toney Alfred MD, PhD
--- NOTE | 2018-01-25 07:38 | CP.PCM.PN ---
<Geetha Trent - Last Filed: 01/25/18 16:48> Subjective - Date & Time of Evaluation Date of Evaluation: 01/25/18 Time of Evaluation: 07:37 - Subjective Subjective: patient seen and examined today with Dr Austin, disoriented, c/o abdominal pain and worsening sob On HF Objective - Vital Signs/Intake and Output Vital Signs (last 24 hours): Temp Pulse Resp BP Pulse Ox 98.3 F 78 16 119/69 98 01/25/18 05:24 01/25/18 05:24 01/25/18 05:24 01/25/18 05:24 01/25/18 05:24 - Medications Medications: Current Medications Acetaminophen (Tylenol 325mg Tab) 650 mg PO Q6 PRN PRN Reason: Pain, Mild (1-3) Last Admin: 01/24/18 21:55 Dose: 650 mg Albuterol/Ipratropium (Duoneb 3 Mg/0.5 Mg (3 Ml) Ud) 3 ml INH RQ4 [facility] Last Admin: 01/25/18 04:55 Dose: 3 ml Amlodipine Besylate (Norvasc) 10 mg PO DAILY [facility] Last Admin: 01/24/18 09:56 Dose: 10 mg Aspirin (Ecotrin) 81 mg PO DAILY [facility] Last Admin: 01/20/18 09:22 Dose: 81 mg Bisoprolol Fumarate (Zebeta) 5 mg PO DAILY [facility] Last Admin: 01/24/18 09:52 Dose: 5 mg Cholecalciferol (Vitamin D) 1,000 intlu PO DAILY [facility] Last Admin: 01/24/18 09:57 Dose: 1,000 intlu Enoxaparin Sodium (Lovenox) 30 mg SC DAILY [facility]; Protocol Last Admin: 01/24/18 09:55 Dose: 30 mg Famotidine (Pepcid) 40 mg PO HS [facility] Last Admin: 01/24/18 21:30 Dose: 40 mg Ferrous Gluconate (Fergon) 324 mg PO DAILY [facility] Last Admin: 01/24/18 09:51 Dose: 324 mg Furosemide (Lasix) 40 mg PO DAILY [facility] Last Admin: 01/21/18 09:34 Dose: Not Given Glipizide (Glucotrol) 10 mg PO DAILY [facility] Last Admin: 01/24/18 09:51 Dose: 10 mg Moxifloxacin HCl (Avelox Iv 400mg/250ml Ns) 400 mg in 250 mls @ 250 mls/hr IVPB DAILY [facility]; Protocol Last Admin: 01/24/18 09:50 Dose: 250 mls/hr Meropenem 500 mg/ Sodium (Chloride) 100 mls @ 100 mls/hr IVPB Q8 [facility]; Protocol Last Admin: 01/25/18 01:17 Dose: 100 mls/hr Sodium Bicarbonate 75 meq/ (Sodium Chloride) 1,075 mls @ 70 mls/hr IV .[id number] [facility] Stop: 01/25/18 20:01 Last Admin: 01/24/18 20:41 Dose: 70 mls/hr Insulin Human Lispro (Humalog) 0 units SC ACHS [facility]; Protocol Last Admin: 01/25/18 06:39 Dose: Not Given Isosorbide Mononitrate (Imdur Er) 30 mg PO DAILY [facility] Last Admin: 01/24/18 09:55 Dose: 30 mg Losartan Potassium (Cozaar) 50 mg PO DAILY [facility] Last Admin: 01/20/18 09:26 Dose: 50 mg Methylprednisolone (Solu-Medrol) 20 mg IVP Q8 [facility] Last Admin: 01/25/18 01:20 Dose: 20 mg Oxycodone/Acetaminophen (Percocet 5/325 Mg Tab) 1 tab PO Q4 PRN PRN Reason: Pain, moderate (4-7) Stop: 01/27/18 22:12 Last Admin: 01/24/18 23:45 Dose: 1 tab Oxycodone/Acetaminophen (Percocet 5/325 Mg Tab) 2 tab PO Q6 PRN PRN Reason: Pain, severe (8-10) Stop: 01/27/18 22:13 Pantoprazole Sodium (Protonix Ec Tab) 40 mg PO DAILY [facility] Last Admin: 01/24/18 09:57 Dose: 40 mg Pravastatin Sodium (Pravachol) 40 mg PO HS [facility] Last Admin: 01/24/18 21:31 Dose: 40 mg Sitagliptin Phosphate (Januvia) 100 mg PO DAILY [facility] Last Admin: 01/24/18 11:31 Dose: 100 mg Sucralfate (Carafate Tab) 1 gm PO BID [facility] Last Admin: 01/24/18 17:21 Dose: 1 gm - Labs Labs: 01/25/18 04:50 01/25/18 04:50 PT 11.0 Seconds (9.8-13.1) 01/19/18 23:03 INR 1.0 01/19/18 23:03 APTT 27.2 Seconds (25.6-37.1) 01/19/18 23:03 - Constitutional Appears: No Acute Distress - Head Exam Head Exam: NORMAL INSPECTION - Respiratory Exam Respiratory Exam: Decreased Breath Sounds, Prolonged Expiratory Phase, Rhonchi, Wheezes - Cardiovascular Exam Cardiovascular Exam: REGULAR RHYTHM, +S1, +S2 - GI/Abdominal Exam GI & Abdominal Exam: Soft, Tenderness (diffuse). absent: Distended, Guarding - Extremities Exam Extremities Exam: absent: Pedal Edema - Neurological Exam Neurological Exam: Awake. absent: Oriented x3 - Skin Skin Exam: Dry, Warm Assessment and Plan - Assessment and Plan (Free Text) Assessment: 77 yo female patient admitted due to pneumonia, positive Mycoplasma, sputum cx positive for yeasts, with upper abdominal pain and AMS. Plan: - afebrile, no chest pain, VS stable - On HF O2 sat 94% - CXR today showed improvement - GI consulted, input appreciated - ID on board, input appreciated - Pulmonology on board, input appreciated - HIDA and US negative for cholecystitis - LFT wnl - Abdominal pain likely from BL lower lobe PNA - worsening renal function - Nephro consulted, input appreciated - head CT negative - continue rest of plan as ordered <Manpreet Austin - Last Filed: 01/26/18 08:13> Objective - Vital Signs/Intake and Output Vital Signs (last 24 hours): Temp Pulse Resp BP Pulse Ox 98.2 F 79 18 114/66 92 L 01/26/18 04:51 01/26/18 04:51 01/26/18 07:29 01/26/18 04:51 01/26/18 04:51 - Medications Medications: Current Medications Acetaminophen (Tylenol 325mg Tab) 650 mg PO Q6 PRN PRN Reason: Pain, Mild (1-3) Last Admin: 01/25/18 20:58 Dose: 650 mg Albuterol/Ipratropium (Duoneb 3 Mg/0.5 Mg (3 Ml) Ud) 3 ml INH RQ4 [facility] Last Admin: 01/26/18 07:29 Dose: Not Given Amlodipine Besylate (Norvasc) 10 mg PO DAILY [facility] Last Admin: 01/25/18 09:31 Dose: 10 mg Aspirin (Ecotrin) 81 mg PO DAILY [facility] Last Admin: 01/20/18 09:22 Dose: 81 mg Bisoprolol Fumarate (Zebeta) 5 mg PO DAILY [facility] Last Admin: 01/25/18 09:31 Dose: 5 mg Cholecalciferol (Vitamin D) 1,000 intlu PO DAILY [facility] Last Admin: 01/25/18 09:31 Dose: 1,000 intlu Enoxaparin Sodium (Lovenox) 30 mg SC DAILY [facility]; Protocol Last Admin: 01/25/18 09:32 Dose: 30 mg Famotidine (Pepcid) 40 mg PO HS [facility] Last Admin: 01/25/18 20:58 Dose: 40 mg Ferrous Gluconate (Fergon) 324 mg PO DAILY [facility] Last Admin: 01/25/18 09:31 Dose: 324 mg Furosemide (Lasix) 40 mg PO DAILY [facility] Last Admin: 01/21/18 09:34 Dose: Not Given Glipizide (Glucotrol) 10 mg PO DAILY [facility] Last Admin: 01/25/18 09:31 Dose: 10 mg Moxifloxacin HCl (Avelox Iv 400mg/250ml Ns) 400 mg in 250 mls @ 250 mls/hr IVPB DAILY [facility]; Protocol Last Admin: 01/25/18 09:29 Dose: 250 mls/hr Meropenem 500 mg/ Sodium (Chloride) 100 mls @ 100 mls/hr IVPB Q8 [facility]; Protocol Last Admin: 01/26/18 00:13 Dose: 100 mls/hr Insulin Human Lispro (Humalog) 0 units SC ACHS [facility]; Protocol Last Admin: 01/25/18 22:46 Dose: Not Given Isosorbide Mononitrate (Imdur Er) 30 mg PO DAILY [facility] Last Admin: 01/25/18 09:31 Dose: 30 mg Losartan Potassium (Cozaar) 50 mg PO DAILY [facility] Last Admin: 01/20/18 09:26 Dose: 50 mg Methylprednisolone (Solu-Medrol) 20 mg IVP Q8 [facility] Last Admin: 01/26/18 00:13 Dose: 20 mg Pantoprazole Sodium (Protonix Ec Tab) 40 mg PO DAILY [facility] Last Admin: 01/25/18 09:31 Dose: 40 mg Pravastatin Sodium (Pravachol) 40 mg PO HS [facility] Last Admin: 01/25/18 20:59 Dose: 40 mg Sitagliptin Phosphate (Januvia) 100 mg PO DAILY [facility] Last Admin: 01/25/18 09:31 Dose: 100 mg Sucralfate (Carafate Tab) 1 gm PO BID [facility] Last Admin: 01/25/18 17:27 Dose: 1 gm - Labs Labs: 01/26/18 05:40 01/25/18 04:50 PT 11.0 Seconds (9.8-13.1) 01/19/18 23:03 INR 1.0 01/19/18 23:03 APTT 27.2 Seconds (25.6-37.1) 01/19/18 23:03 Assessment and Plan - Assessment and Plan (Free Text) Assessment: Patient was personally seen and examined by me in rounds with residents. Available labs and diagnostic data reviewed. Case, Patient's condition and management plan discussed with residents in rounds. Agree with resident's progress note. Plan: As ordered.
[2018-01-25] MEDS: Moxifloxacin IV 400mg/250ml NS 400 MG/250 ML BAG IVPB SCH (09:29)
[2018-01-25] MEDS: Pantoprazole 40 mg EC Tab PO SCH (09:31)
[2018-01-25] MEDS: Cholecalciferol 1,000 INTLU TAB PO SCH (09:31)
[2018-01-25] MEDS: Enoxaparin 30 mg Syringe SC SCH (09:32)
--- NOTE | 2018-01-25 12:24 | CP.PCM.PN ---
Subjective - Date & Time of Evaluation Date of Evaluation: 01/25/18 Time of Evaluation: 12:22 - Subjective Subjective: 77 yo HF with pmh/o htn, dm, cad, chf, back pain? DJD/ spinal stenosis, copd, ckd was admitted with weakness, sob, cough increased bun/cr with s.cr about 3- 3.5 to telemetry and then transferred to TCU for physical therapy. now pt is transferred back to tele. c/o RUQ pain, nausea, decreased po intake, elevated wbc pt was confused last night, renal function is deteriorating pt will benefit from temporary hemodialysis if pt 's family agrees, c/w iv [id number] drip left message to call me to her daughter daylin dominguez Objective - Vital Signs/Intake and Output Vital Signs (last 24 hours): Temp Pulse Resp BP Pulse Ox 98.3 F 84 18 115/67 98 01/25/18 08:49 01/25/18 08:49 01/25/18 08:49 01/25/18 08:49 01/25/18 08:49 - Medications Medications: Current Medications Acetaminophen (Tylenol 325mg Tab) 650 mg PO Q6 PRN PRN Reason: Pain, Mild (1-3) Last Admin: 01/24/18 21:55 Dose: 650 mg Albuterol/Ipratropium (Duoneb 3 Mg/0.5 Mg (3 Ml) Ud) 3 ml INH RQ4 [facility] Last Admin: 01/25/18 07:50 Dose: Not Given Amlodipine Besylate (Norvasc) 10 mg PO DAILY [facility] Last Admin: 01/25/18 09:31 Dose: 10 mg Aspirin (Ecotrin) 81 mg PO DAILY [facility] Last Admin: 01/20/18 09:22 Dose: 81 mg Bisoprolol Fumarate (Zebeta) 5 mg PO DAILY [facility] Last Admin: 01/25/18 09:31 Dose: 5 mg Cholecalciferol (Vitamin D) 1,000 intlu PO DAILY [facility] Last Admin: 01/25/18 09:31 Dose: 1,000 intlu Enoxaparin Sodium (Lovenox) 30 mg SC DAILY [facility]; Protocol Last Admin: 01/25/18 09:32 Dose: 30 mg Famotidine (Pepcid) 40 mg PO HS [facility] Last Admin: 01/24/18 21:30 Dose: 40 mg Ferrous Gluconate (Fergon) 324 mg PO DAILY [facility] Last Admin: 01/25/18 09:31 Dose: 324 mg Furosemide (Lasix) 40 mg PO DAILY [facility] Last Admin: 01/21/18 09:34 Dose: Not Given Glipizide (Glucotrol) 10 mg PO DAILY [facility] Last Admin: 01/25/18 09:31 Dose: 10 mg Moxifloxacin HCl (Avelox Iv 400mg/250ml Ns) 400 mg in 250 mls @ 250 mls/hr IVPB DAILY [facility]; Protocol Last Admin: 01/25/18 09:29 Dose: 250 mls/hr Meropenem 500 mg/ Sodium (Chloride) 100 mls @ 100 mls/hr IVPB Q8 [facility]; Protocol Last Admin: 01/25/18 01:17 Dose: 100 mls/hr Sodium Bicarbonate 75 meq/ (Sodium Chloride) 1,075 mls @ 70 mls/hr IV .[id number] [facility] Stop: 01/25/18 20:01 Last Admin: 01/24/18 20:41 Dose: 70 mls/hr Insulin Human Lispro (Humalog) 0 units SC ACHS [facility]; Protocol Last Admin: 01/25/18 06:39 Dose: Not Given Isosorbide Mononitrate (Imdur Er) 30 mg PO DAILY [facility] Last Admin: 01/25/18 09:31 Dose: 30 mg Losartan Potassium (Cozaar) 50 mg PO DAILY [facility] Last Admin: 01/20/18 09:26 Dose: 50 mg Methylprednisolone (Solu-Medrol) 20 mg IVP Q8 [facility] Last Admin: 01/25/18 09:31 Dose: 20 mg Pantoprazole Sodium (Protonix Ec Tab) 40 mg PO DAILY [facility] Last Admin: 01/25/18 09:31 Dose: 40 mg Pravastatin Sodium (Pravachol) 40 mg PO HS [facility] Last Admin: 01/24/18 21:31 Dose: 40 mg Sitagliptin Phosphate (Januvia) 100 mg PO DAILY [facility] Last Admin: 01/25/18 09:31 Dose: 100 mg Sucralfate (Carafate Tab) 1 gm PO BID [facility] Last Admin: 01/25/18 09:31 Dose: 1 gm - Labs Labs: 01/25/18 04:50 01/25/18 04:50 PT 11.0 Seconds (9.8-13.1) 01/19/18 23:03 INR 1.0 01/19/18 23:03 APTT 27.2 Seconds (25.6-37.1) 01/19/18 23:03 - Constitutional Appears: Non-toxic, No Acute Distress - Head Exam Head Exam: ATRAUMATIC, NORMAL INSPECTION, NORMOCEPHALIC - Eye Exam Eye Exam: EOMI, Normal appearance, PERRL Pupil Exam: NORMAL ACCOMODATION - ENT Exam ENT Exam: Mucous Membranes Moist - Neck Exam Neck Exam: Full ROM, Normal Inspection - Respiratory Exam Respiratory Exam: Rales, NORMAL BREATHING PATTERN - GI/Abdominal Exam GI & Abdominal Exam: Soft, Normal Bowel Sounds - Rectal Exam Rectal Exam: Deferred - Extremities Exam Extremities Exam: Full ROM, Normal Inspection - Neurological Exam Neurological Exam: Alert, Awake, CN II-XII Intact Additional comments: oriented x2 - Psychiatric Exam Psychiatric exam: Normal Affect, Normal Mood - Skin Skin Exam: Normal Color, Warm Assessment and Plan - Assessment and Plan (Free Text) Assessment: 77 yo HF with pmh/o htn, dm, chf, cad, ckd, copd , djd/ ? spinal stenosis with RUQ pain, , increased bun/cr, decreased po intake, high wbc 1. CAMPBELL on ckd-3 2. RUQ pain ruled out for Acute jass by hIDA scan 3. cholelithiasis 4. HTN 5. Met. acidosis d/w pt and primary team , pt will benefit from temporary hemodialysis due to worsening renal function I tried to contact pt's daughter as per pt's request, unable to reach and left message to call me back. 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
--- NOTE | 2018-01-25 13:29 | CP.PCM.PN ---
Subjective - Date & Time of Evaluation Date of Evaluation: 01/25/18 Time of Evaluation: 09:00 - Subjective Subjective: c/o cough and SOB weak and confused bed bound Objective - Vital Signs/Intake and Output Vital Signs (last 24 hours): Temp Pulse Resp BP Pulse Ox 98.3 F 84 25 H 115/67 98 01/25/18 08:49 01/25/18 08:49 01/25/18 13:26 01/25/18 08:49 01/25/18 08:49 - Medications Medications: Current Medications Acetaminophen (Tylenol 325mg Tab) 650 mg PO Q6 PRN PRN Reason: Pain, Mild (1-3) Last Admin: 01/24/18 21:55 Dose: 650 mg Albuterol/Ipratropium (Duoneb 3 Mg/0.5 Mg (3 Ml) Ud) 3 ml INH RQ4 [facility] Last Admin: 01/25/18 13:15 Dose: Not Given Amlodipine Besylate (Norvasc) 10 mg PO DAILY [facility] Last Admin: 01/25/18 09:31 Dose: 10 mg Aspirin (Ecotrin) 81 mg PO DAILY [facility] Last Admin: 01/20/18 09:22 Dose: 81 mg Bisoprolol Fumarate (Zebeta) 5 mg PO DAILY [facility] Last Admin: 01/25/18 09:31 Dose: 5 mg Cholecalciferol (Vitamin D) 1,000 intlu PO DAILY [facility] Last Admin: 01/25/18 09:31 Dose: 1,000 intlu Enoxaparin Sodium (Lovenox) 30 mg SC DAILY [facility]; Protocol Last Admin: 01/25/18 09:32 Dose: 30 mg Famotidine (Pepcid) 40 mg PO HS [facility] Last Admin: 01/24/18 21:30 Dose: 40 mg Ferrous Gluconate (Fergon) 324 mg PO DAILY [facility] Last Admin: 01/25/18 09:31 Dose: 324 mg Furosemide (Lasix) 40 mg PO DAILY [facility] Last Admin: 01/21/18 09:34 Dose: Not Given Glipizide (Glucotrol) 10 mg PO DAILY [facility] Last Admin: 01/25/18 09:31 Dose: 10 mg Moxifloxacin HCl (Avelox Iv 400mg/250ml Ns) 400 mg in 250 mls @ 250 mls/hr IVPB DAILY [facility]; Protocol Last Admin: 01/25/18 09:29 Dose: 250 mls/hr Meropenem 500 mg/ Sodium (Chloride) 100 mls @ 100 mls/hr IVPB Q8 [facility]; Protocol Last Admin: 01/25/18 01:17 Dose: 100 mls/hr Sodium Bicarbonate 75 meq/ (Sodium Chloride) 1,075 mls @ 70 mls/hr IV .[id number] [facility] Stop: 01/25/18 20:01 Last Admin: 01/24/18 20:41 Dose: 70 mls/hr Insulin Human Lispro (Humalog) 0 units SC ACHS [facility]; Protocol Last Admin: 01/25/18 06:39 Dose: Not Given Isosorbide Mononitrate (Imdur Er) 30 mg PO DAILY [facility] Last Admin: 01/25/18 09:31 Dose: 30 mg Losartan Potassium (Cozaar) 50 mg PO DAILY [facility] Last Admin: 01/20/18 09:26 Dose: 50 mg Methylprednisolone (Solu-Medrol) 20 mg IVP Q8 [facility] Last Admin: 01/25/18 09:31 Dose: 20 mg Pantoprazole Sodium (Protonix Ec Tab) 40 mg PO DAILY [facility] Last Admin: 01/25/18 09:31 Dose: 40 mg Pravastatin Sodium (Pravachol) 40 mg PO HS [facility] Last Admin: 01/24/18 21:31 Dose: 40 mg Sitagliptin Phosphate (Januvia) 100 mg PO DAILY [facility] Last Admin: 01/25/18 09:31 Dose: 100 mg Sucralfate (Carafate Tab) 1 gm PO BID [facility] Last Admin: 01/25/18 09:31 Dose: 1 gm - Labs Labs: 01/25/18 04:50 01/25/18 04:50 PT 11.0 Seconds (9.8-13.1) 01/19/18 23:03 INR 1.0 01/19/18 23:03 APTT 27.2 Seconds (25.6-37.1) 01/19/18 23:03 - Constitutional Appears: Non-toxic, Chronically Ill - ENT Exam ENT Exam: absent: TM's Normal Bilaterally - Neck Exam Neck Exam: absent: Lymphadenopathy - Respiratory Exam Respiratory Exam: Decreased Breath Sounds - Cardiovascular Exam Cardiovascular Exam: REGULAR RHYTHM - GI/Abdominal Exam GI & Abdominal Exam: Distended, Soft - Rectal Exam Rectal Exam: Deferred - Exam Exam: NORMAL INSPECTION - Extremities Exam Extremities Exam: absent: Pedal Edema - Back Exam Back Exam: absent: CVA tenderness (L), CVA tenderness (R) - Neurological Exam Neurological Exam: Alert, Awake, Oriented x3 - Psychiatric Exam Psychiatric exam: Normal Mood - Skin Skin Exam: Dry Assessment and Plan (1) Pneumonia Status: Acute (2) COPD (chronic obstructive pulmonary disease) Status: Chronic - Assessment and Plan (Free Text) Assessment: cont iv rx chest PT pulm eval Plan: mycoplasma +
[2018-01-25] MEDS ORDERED: Lidocaine 1% 5ml Abboject ONE (13:49)
--- NOTE | 2018-01-25 14:40 | PCM.SURG1 ---
Surgeon's Initial Post Op Note - Surgeon's Notes Surgeon: Ronal Wild MD Casket Upholsterer: NONE Type of Anesthesia: Local Pre-Operative Diagnosis: Renal failure, poor venous access Operative Findings: US showed patent right brachial vein, patent right IJV. Post-Operative Diagnosis: REnal failure, poor venous access Operation Performed: Temporary HD catheter placement right IJV. Tip is in the SVC. Single lumen picc right brachial vein, 37 cm. Tip is in the SVC. Specimen/Specimens Removed: NONE Estimated Blood Loss: EBL {In ML}: 5 Blood Products Given: N/A Drains Used: No Drains Post-Op Condition: Poor Date of Surgery/Procedure: 01/25/18 Time of Surgery/Procedure: 14:35
--- NOTE | 2018-01-25 16:34 | CT ---
Date of service: 01/25/2018 PROCEDURE: CT Chest without contrast HISTORY: sob, f/u pna, hypoxia COMPARISON: Comparison is made to the previous CT of the chest without contrast dated 01/21/2018 TECHNIQUE: Contiguous axial images were obtained through the chest without intravenous contrast enhancement. Sagittal and coronal reconstructions were performed. Radiation dose: Total exam DLP = 542.13 mGy-cm. This CT exam was performed using one or more of the following dose reduction techniques: Automated exposure control, adjustment of the mA and/or kV according to patient size, and/or use of iterative reconstruction technique. FINDINGS: LUNGS: Persistent airspace consolidation at the left lower lobe. Interval improvement in the previously seen airspace consolidation at the right lower lobe. Persistent while basilar atelectasis likely due to pleural effusion. Again noted are foci of ground-glass opacities in the upper lobe which appears smaller and improved since the previous exam. MEDIASTINUM: Mild dietitian of the ascending thoracic aorta is again noted. The heart is mildly enlarged. Main pulmonary artery is mildly to moderately enlarged . prominent mediastinal lymph nodes are again noted. Moderate dilatation of the esophagus is again noted. Foci of aortic atherosclerotic calcification. PLEURA: Small bilateral pleural effusion are noted. BONES: Again noted is [id number] compression deformity of T12 vertebral body. UPPER ABDOMEN: Gallstones are again noted OTHER FINDINGS: None. IMPRESSION: Persistent airspace consolidation at the left lower lobe. Interval improvement in the airspace consolidation previously noted in the right lower lobe. Interval improvement in ground-glass opacities since the prior study. Small bilateral pleural effusions.
--- NOTE | 2018-01-25 17:09 | CP.PCM.PN ---
Subjective - Date & Time of Evaluation Date of Evaluation: 01/25/18 Time of Evaluation: 10:00 - Subjective Subjective: F/U PNA, COPD Exacerbation. agitated earlier, calm now, no SOB with on high flow O2, occasional cough with scanty amount of yellowish flegm Objective - Vital Signs/Intake and Output Vital Signs (last 24 hours): Temp Pulse Resp BP Pulse Ox 97.8 F 77 20 116/64 92 L 01/25/18 16:18 01/25/18 16:18 01/25/18 16:18 01/25/18 16:18 01/25/18 16:18 - Medications Medications: Current Medications Acetaminophen (Tylenol 325mg Tab) 650 mg PO Q6 PRN PRN Reason: Pain, Mild (1-3) Last Admin: 01/24/18 21:55 Dose: 650 mg Albuterol/Ipratropium (Duoneb 3 Mg/0.5 Mg (3 Ml) Ud) 3 ml INH RQ4 [facility] Last Admin: 01/25/18 16:02 Dose: 3 ml Amlodipine Besylate (Norvasc) 10 mg PO DAILY [facility] Last Admin: 01/25/18 09:31 Dose: 10 mg Aspirin (Ecotrin) 81 mg PO DAILY [facility] Last Admin: 01/20/18 09:22 Dose: 81 mg Bisoprolol Fumarate (Zebeta) 5 mg PO DAILY [facility] Last Admin: 01/25/18 09:31 Dose: 5 mg Cholecalciferol (Vitamin D) 1,000 intlu PO DAILY [facility] Last Admin: 01/25/18 09:31 Dose: 1,000 intlu Enoxaparin Sodium (Lovenox) 30 mg SC DAILY [facility]; Protocol Last Admin: 01/25/18 09:32 Dose: 30 mg Famotidine (Pepcid) 40 mg PO HS [facility] Last Admin: 01/24/18 21:30 Dose: 40 mg Ferrous Gluconate (Fergon) 324 mg PO DAILY [facility] Last Admin: 01/25/18 09:31 Dose: 324 mg Furosemide (Lasix) 40 mg PO DAILY [facility] Last Admin: 01/21/18 09:34 Dose: Not Given Glipizide (Glucotrol) 10 mg PO DAILY [facility] Last Admin: 01/25/18 09:31 Dose: 10 mg Moxifloxacin HCl (Avelox Iv 400mg/250ml Ns) 400 mg in 250 mls @ 250 mls/hr IVPB DAILY [facility]; Protocol Last Admin: 01/25/18 09:29 Dose: 250 mls/hr Meropenem 500 mg/ Sodium (Chloride) 100 mls @ 100 mls/hr IVPB Q8 [facility]; Protocol Last Admin: 01/25/18 09:15 Dose: 100 mls/hr Sodium Bicarbonate 75 meq/ (Sodium Chloride) 1,075 mls @ 70 mls/hr IV .[id number] [facility] Stop: 01/25/18 20:01 Last Admin: 01/25/18 11:45 Dose: Not Given Insulin Human Lispro (Humalog) 0 units SC ACHS [facility]; Protocol Last Admin: 01/25/18 11:45 Dose: 2 units Isosorbide Mononitrate (Imdur Er) 30 mg PO DAILY [facility] Last Admin: 01/25/18 09:31 Dose: 30 mg Losartan Potassium (Cozaar) 50 mg PO DAILY [facility] Last Admin: 01/20/18 09:26 Dose: 50 mg Methylprednisolone (Solu-Medrol) 20 mg IVP Q8 [facility] Last Admin: 01/25/18 09:31 Dose: 20 mg Pantoprazole Sodium (Protonix Ec Tab) 40 mg PO DAILY [facility] Last Admin: 01/25/18 09:31 Dose: 40 mg Pravastatin Sodium (Pravachol) 40 mg PO HS [facility] Last Admin: 01/24/18 21:31 Dose: 40 mg Sitagliptin Phosphate (Januvia) 100 mg PO DAILY [facility] Last Admin: 01/25/18 09:31 Dose: 100 mg Sucralfate (Carafate Tab) 1 gm PO BID [facility] Last Admin: 01/25/18 09:31 Dose: 1 gm - Labs Labs: 01/25/18 04:50 01/25/18 04:50 PT 11.0 Seconds (9.8-13.1) 01/19/18 23:03 INR 1.0 01/19/18 23:03 APTT 27.2 Seconds (25.6-37.1) 01/19/18 23:03 - Constitutional Appears: No Acute Distress - Head Exam Head Exam: NORMAL INSPECTION - Eye Exam Eye Exam: PERRL - ENT Exam ENT Exam: Normal Exam - Neck Exam Neck Exam: Normal Inspection - Respiratory Exam Respiratory Exam: Decreased Breath Sounds (at bases), Rhonchi (scattered), Wheez es (scattered) - Cardiovascular Exam Cardiovascular Exam: REGULAR RHYTHM - GI/Abdominal Exam GI & Abdominal Exam: Soft, Normal Bowel Sounds - Extremities Exam Additional comments: Edema BLE - Back Exam Back Exam: tenderness - Neurological Exam Neurological Exam: Alert, Oriented x3 - Psychiatric Exam Psychiatric exam: Normal Mood - Skin Skin Exam: Warm Assessment and Plan (1) Pneumonia Status: Acute (2) COPD exacerbation Status: Acute - Assessment and Plan (Free Text) Plan: CT Chest LLL PNA same, RLL PNA improved, impeoved ground glass opacity, SoluMedrol, DuoNeb, Avelox, Merren, PICC line, BUN , Creatinine increased CAMPBELL , Sifter Operator planning dialysis
[2018-01-25] MEDS: Pravastatin Sodium 40 MG TAB PO SCH (20:59)
[2018-01-26] MEDS: Meropenem 500 MG in Sodium Chloride 0.9% 100 ML IVPB SCH ×2 (00:13→08:35)
[2018-01-26] MEDS: MethylPREDNISolone 40 mg Vial IVP SCH ×3 (00:13→16:43)
[2018-01-26] MEDS: Albuterol-Ipratrop 3 mg / 0.5 (3 ml) UD INH SCH ×6 (03:34→19:19)
[2018-01-26 07:18] LABS: HEMOGLOBIN 8.6 g/dL (12.0-16.0); MEAN CELL VOLUME 88.7 fl (81.0-99.0); MEAN CORPUSCULAR HEMOGLOBIN 29.5 pg (27.0-31.0); MEAN CORPUSCULAR HGB CONC 33.2 g/dL (33.0-37.0); RBC 2.92 Mil/uL (3.80-5.20); RED CELL DISTRIBUTION WIDTH 14.3 % (11.5-14.5); WHITE BLOOD COUNT 11.5 K/uL (4.8-10.8)
[2018-01-26] MEDS: Moxifloxacin IV 400mg/250ml NS 400 MG/250 ML BAG IVPB SCH (08:24)
[2018-01-26 08:27] LABS: ALB/GLOB RATIO 0.9 (1.0-2.1); ALBUMIN 2.8 g/dL (3.5-5.0)
[2018-01-26] MEDS: Enoxaparin 30 mg Syringe SC SCH (08:33)
[2018-01-26] MEDS: Pantoprazole 40 mg EC Tab PO SCH (08:37)
[2018-01-26] MEDS: Cholecalciferol 1,000 INTLU TAB PO SCH (08:38)
[2018-01-26] MEDS: Insulin Lispro (humaLOG) 100 Units/ml Inj SC SCH ×4 (09:59→22:20)
[2018-01-26] MEDS ORDERED: Meropenem 500 MG in Sodium Chloride 0.9% 100 ML IVPB SCH (11:00)
--- NOTE | 2018-01-26 14:08 | CP.PCM.PN ---
Subjective - Date & Time of Evaluation Date of Evaluation: 01/26/18 Time of Evaluation: 14:07 - Subjective Subjective: pt is awake, slightly confused pt is being dialyzed, uf goal is 2 lit d/w pt 's daughter and son in law prior to initiation of HD agreed for HD Objective - Vital Signs/Intake and Output Vital Signs (last 24 hours): Temp Pulse Resp BP Pulse Ox 98.4 F 82 21 126/72 93 L 01/26/18 08:00 01/26/18 08:00 01/26/18 11:05 01/26/18 08:00 01/26/18 08:00 - Medications Medications: Current Medications Acetaminophen (Tylenol 325mg Tab) 650 mg PO Q6 PRN PRN Reason: Pain, Mild (1-3) Last Admin: 01/25/18 20:58 Dose: 650 mg Albuterol/Ipratropium (Duoneb 3 Mg/0.5 Mg (3 Ml) Ud) 3 ml INH RQ4 [facility] Last Admin: 01/26/18 11:05 Dose: 3 ml Amlodipine Besylate (Norvasc) 10 mg PO DAILY [facility] Last Admin: 01/26/18 08:37 Dose: Not Given Aspirin (Ecotrin) 81 mg PO DAILY [facility] Last Admin: 01/20/18 09:22 Dose: 81 mg Bisoprolol Fumarate (Zebeta) 5 mg PO DAILY [facility] Last Admin: 01/26/18 08:39 Dose: Not Given Cholecalciferol (Vitamin D) 1,000 intlu PO DAILY [facility] Last Admin: 01/26/18 08:38 Dose: 1,000 intlu Enoxaparin Sodium (Lovenox) 30 mg SC DAILY [facility]; Protocol Last Admin: 01/26/18 08:33 Dose: 30 mg Famotidine (Pepcid) 40 mg PO HS [facility] Last Admin: 01/25/18 20:58 Dose: 40 mg Ferrous Gluconate (Fergon) 324 mg PO DAILY [facility] Last Admin: 01/26/18 08:32 Dose: 324 mg Furosemide (Lasix) 40 mg PO DAILY [facility] Last Admin: 01/21/18 09:34 Dose: Not Given Glipizide (Glucotrol) 10 mg PO DAILY [facility] Last Admin: 01/26/18 08:32 Dose: 10 mg Moxifloxacin HCl (Avelox Iv 400mg/250ml Ns) 400 mg in 250 mls @ 250 mls/hr IVPB DAILY [facility]; Protocol Last Admin: 01/26/18 08:24 Dose: 250 mls/hr Meropenem 500 mg/ Sodium (Chloride) 100 mls @ 100 mls/hr IVPB Q24H [facility]; Protocol Insulin Human Lispro (Humalog) 0 units SC ACHS [facility]; Protocol Last Admin: 01/26/18 13:25 Dose: Not Given Isosorbide Mononitrate (Imdur Er) 30 mg PO DAILY [facility] Last Admin: 01/26/18 08:32 Dose: 30 mg Losartan Potassium (Cozaar) 50 mg PO DAILY [facility] Last Admin: 01/20/18 09:26 Dose: 50 mg Methylprednisolone (Solu-Medrol) 20 mg IVP Q8 [facility] Last Admin: 01/26/18 08:38 Dose: 20 mg Pantoprazole Sodium (Protonix Ec Tab) 40 mg PO DAILY [facility] Last Admin: 01/26/18 08:37 Dose: 40 mg Pravastatin Sodium (Pravachol) 40 mg PO HS [facility] Last Admin: 01/25/18 20:59 Dose: 40 mg Sitagliptin Phosphate (Januvia) 100 mg PO DAILY [facility] Last Admin: 01/26/18 08:33 Dose: 100 mg Sucralfate (Carafate Tab) 1 gm PO BID [facility] Last Admin: 01/26/18 08:32 Dose: 1 gm - Labs Labs: 01/26/18 05:40 01/26/18 05:40 PT 11.0 Seconds (9.8-13.1) 01/19/18 23:03 INR 1.0 01/19/18 23:03 APTT 27.2 Seconds (25.6-37.1) 01/19/18 23:03 - Constitutional Appears: Well, No Acute Distress - Head Exam Head Exam: ATRAUMATIC, NORMAL INSPECTION, NORMOCEPHALIC - Eye Exam Eye Exam: EOMI, Normal appearance, PERRL Pupil Exam: NORMAL ACCOMODATION - ENT Exam ENT Exam: Mucous Membranes Moist - Neck Exam Neck Exam: Full ROM, Normal Inspection - Respiratory Exam Respiratory Exam: Rales, NORMAL BREATHING PATTERN - Cardiovascular Exam Cardiovascular Exam: REGULAR RHYTHM, +S1, +S2 - GI/Abdominal Exam GI & Abdominal Exam: Soft, Normal Bowel Sounds - Rectal Exam Rectal Exam: Deferred - Extremities Exam Extremities Exam: Full ROM, Normal Inspection Additional comments: no edema of legs - Neurological Exam Neurological Exam: CN II-XII Intact Additional comments: awake, oriented x 1-2, slightly confused - Psychiatric Exam Psychiatric exam: Normal Affect - Skin Skin Exam: Normal Color Assessment and Plan - Assessment and Plan (Free Text) Assessment: 77 yo HF with pmh/o htn, dm, chf, cad, ckd, copd , djd/ ? spinal stenosis with RUQ pain, , increased bun/cr, decreased po intake, high wbc, cough 1. CAMPBELL on ckd-3 2. DM 3. cholelithiasis 4. HTN 5. Met. acidosis 6. Mycoplasma pneumonia pt is being dialyzed, uf goal is about 2 lit, as tolerated d/w pt's family prior to initiation of hemodialysis, will continue hd until renal function is back to her base line c/w iv abx check bmp in am
--- NOTE | 2018-01-26 17:32 | CP.PCM.PN ---
Subjective - Subjective Subjective: finished HD now, no AD,no SOB, occasional dry cough, chest congestion improved Objective - Vital Signs/Intake and Output Vital Signs (last 24 hours): Temp Pulse Resp BP Pulse Ox 98.9 F 82 20 121/70 95 01/26/18 15:50 01/26/18 15:50 01/26/18 15:56 01/26/18 15:50 01/26/18 15:50 - Medications Medications: Current Medications Acetaminophen (Tylenol 325mg Tab) 650 mg PO Q6 PRN PRN Reason: Pain, Mild (1-3) Last Admin: 01/25/18 20:58 Dose: 650 mg Albuterol/Ipratropium (Duoneb 3 Mg/0.5 Mg (3 Ml) Ud) 3 ml INH RQ4 [facility] Last Admin: 01/26/18 15:55 Dose: 3 ml Amlodipine Besylate (Norvasc) 10 mg PO DAILY [facility] Last Admin: 01/26/18 08:37 Dose: Not Given Aspirin (Ecotrin) 81 mg PO DAILY [facility] Last Admin: 01/20/18 09:22 Dose: 81 mg Bisoprolol Fumarate (Zebeta) 5 mg PO DAILY [facility] Last Admin: 01/26/18 08:39 Dose: Not Given Cholecalciferol (Vitamin D) 1,000 intlu PO DAILY [facility] Last Admin: 01/26/18 08:38 Dose: 1,000 intlu Enoxaparin Sodium (Lovenox) 30 mg SC DAILY [facility]; Protocol Last Admin: 01/26/18 08:33 Dose: 30 mg Famotidine (Pepcid) 40 mg PO HS [facility] Last Admin: 01/25/18 20:58 Dose: 40 mg Ferrous Gluconate (Fergon) 324 mg PO DAILY [facility] Last Admin: 01/26/18 08:32 Dose: 324 mg Furosemide (Lasix) 40 mg PO DAILY [facility] Last Admin: 01/21/18 09:34 Dose: Not Given Glipizide (Glucotrol) 10 mg PO DAILY [facility] Last Admin: 01/26/18 08:32 Dose: 10 mg Moxifloxacin HCl (Avelox Iv 400mg/250ml Ns) 400 mg in 250 mls @ 250 mls/hr IVPB DAILY [facility]; Protocol Last Admin: 01/26/18 08:24 Dose: 250 mls/hr Meropenem 500 mg/ Sodium (Chloride) 100 mls @ 100 mls/hr IVPB Q24H [facility]; Protocol Insulin Human Lispro (Humalog) 0 units SC ACHS [facility]; Protocol Last Admin: 01/26/18 16:02 Dose: Not Given Isosorbide Mononitrate (Imdur Er) 30 mg PO DAILY [facility] Last Admin: 01/26/18 08:32 Dose: 30 mg Losartan Potassium (Cozaar) 50 mg PO DAILY [facility] Last Admin: 01/20/18 09:26 Dose: 50 mg Methylprednisolone (Solu-Medrol) 20 mg IVP Q8 [facility] Last Admin: 01/26/18 16:43 Dose: 20 mg Pantoprazole Sodium (Protonix Ec Tab) 40 mg PO DAILY [facility] Last Admin: 01/26/18 08:37 Dose: 40 mg Pravastatin Sodium (Pravachol) 40 mg PO HS [facility] Last Admin: 01/25/18 20:59 Dose: 40 mg Sitagliptin Phosphate (Januvia) 100 mg PO DAILY [facility] Last Admin: 01/26/18 08:33 Dose: 100 mg Sucralfate (Carafate Tab) 1 gm PO BID [facility] Last Admin: 01/26/18 16:42 Dose: 1 gm - Labs Labs: 01/26/18 05:40 01/26/18 05:40 PT 11.0 Seconds (9.8-13.1) 01/19/18 23:03 INR 1.0 01/19/18 23:03 APTT 27.2 Seconds (25.6-37.1) 01/19/18 23:03 - Constitutional Appears: Chronically Ill - Head Exam Head Exam: NORMAL INSPECTION - Eye Exam Eye Exam: PERRL - ENT Exam ENT Exam: Normal Exam - Neck Exam Neck Exam: Normal Inspection - Respiratory Exam Respiratory Exam: Decreased Breath Sounds (at bases), Rhonchi (scattered), Wh eezes (few) - Cardiovascular Exam Cardiovascular Exam: REGULAR RHYTHM - GI/Abdominal Exam GI & Abdominal Exam: Soft, Normal Bowel Sounds - Extremities Exam Extremities Exam: Pedal Edema - Back Exam Back Exam: tenderness - Neurological Exam Neurological Exam: Alert, CN II-XII Intact Additional comments: generalized weakness Assessment and Plan (1) Pneumonia Status: Acute (2) COPD exacerbation Status: Acute - Assessment and Plan (Free Text) Plan: continue DuoNeb, Avelox, Merren , HD and rest of treatment
[2018-01-26] MEDS: Pravastatin Sodium 40 MG TAB PO SCH (22:21)
[2018-01-27] MEDS: MethylPREDNISolone 40 mg Vial IVP SCH ×3 (00:04→16:25)
[2018-01-27] MEDS: Albuterol-Ipratrop 3 mg / 0.5 (3 ml) UD INH SCH ×6 (00:36→19:22)
[2018-01-27 07:55] LABS: HEMOGLOBIN 10.4 g/dL (12.0-16.0); MEAN CELL VOLUME 88.5 fl (81.0-99.0); MEAN CORPUSCULAR HEMOGLOBIN 28.7 pg (27.0-31.0); MEAN CORPUSCULAR HGB CONC 32.4 g/dL (33.0-37.0); RBC 3.63 Mil/uL (3.80-5.20); RED CELL DISTRIBUTION WIDTH 14.4 % (11.5-14.5)
[2018-01-27] MEDS: Meropenem 500 MG in Sodium Chloride 0.9% 100 ML IVPB SCH (08:37)
[2018-01-27] MEDS: Moxifloxacin IV 400mg/250ml NS 400 MG/250 ML BAG IVPB SCH (08:38)
[2018-01-27 08:39] LABS: ALB/GLOB RATIO 0.9 (1.0-2.1)
[2018-01-27] MEDS: Enoxaparin 30 mg Syringe SC SCH (08:43)
[2018-01-27] MEDS: Pantoprazole 40 mg EC Tab PO SCH (08:45)
[2018-01-27] MEDS: Cholecalciferol 1,000 INTLU TAB PO SCH (08:47)
[2018-01-27] MEDS: Insulin Lispro (humaLOG) 100 Units/ml Inj SC SCH ×4 (08:57→21:44)
[2018-01-27] MEDS: Lidocaine 5% Patch TD SCH (12:26)
--- NOTE | 2018-01-27 12:35 | CP.PCM.PN ---
Subjective - Date & Time of Evaluation Date of Evaluation: 01/27/18 Time of Evaluation: 09:00 - Subjective Subjective: less SOB afebrile NAD Objective - Vital Signs/Intake and Output Vital Signs (last 24 hours): Temp Pulse Resp BP Pulse Ox 98.6 F 90 22 147/73 94 L 01/27/18 08:00 01/27/18 09:00 01/27/18 11:57 01/27/18 08:44 01/27/18 08:00 - Medications Medications: Current Medications Acetaminophen (Tylenol 325mg Tab) 650 mg PO Q6 PRN PRN Reason: Pain, Mild (1-3) Last Admin: 01/25/18 20:58 Dose: 650 mg Albuterol/Ipratropium (Duoneb 3 Mg/0.5 Mg (3 Ml) Ud) 3 ml INH RQ4 [facility] Last Admin: 01/27/18 11:38 Dose: 3 ml Amlodipine Besylate (Norvasc) 10 mg PO DAILY [facility] Last Admin: 01/27/18 08:44 Dose: 10 mg Aspirin (Ecotrin) 81 mg PO DAILY [facility] Last Admin: 01/20/18 09:22 Dose: 81 mg Bisoprolol Fumarate (Zebeta) 5 mg PO DAILY [facility] Last Admin: 01/27/18 08:47 Dose: 5 mg Cholecalciferol (Vitamin D) 1,000 intlu PO DAILY [facility] Last Admin: 01/27/18 08:47 Dose: 1,000 intlu Famotidine (Pepcid) 40 mg PO HS [facility] Last Admin: 01/26/18 22:21 Dose: 40 mg Ferrous Gluconate (Fergon) 324 mg PO DAILY [facility] Last Admin: 01/27/18 08:42 Dose: 324 mg Furosemide (Lasix) 40 mg PO DAILY [facility] Last Admin: 01/21/18 09:34 Dose: Not Given Glipizide (Glucotrol) 10 mg PO DAILY [facility] Last Admin: 01/27/18 08:42 Dose: 10 mg Meropenem 500 mg/ Sodium (Chloride) 100 mls @ 100 mls/hr IVPB Q24H [facility]; Protocol Last Admin: 01/27/18 08:37 Dose: 100 mls/hr Insulin Human Lispro (Humalog) 0 units SC ACHS [facility]; Protocol Last Admin: 01/27/18 12:09 Dose: Not Given Isosorbide Mononitrate (Imdur Er) 30 mg PO DAILY [facility] Last Admin: 01/27/18 08:43 Dose: 30 mg Lidocaine (Lidoderm) 1 ea TD DAILY [facility] Last Admin: 01/27/18 12:26 Dose: 1 ea Losartan Potassium (Cozaar) 50 mg PO DAILY [facility] Last Admin: 01/20/18 09:26 Dose: 50 mg Methylprednisolone (Solu-Medrol) 20 mg IVP Q8 [facility] Last Admin: 01/27/18 08:46 Dose: 20 mg Pantoprazole Sodium (Protonix Ec Tab) 40 mg PO DAILY [facility] Last Admin: 01/27/18 08:45 Dose: 40 mg Pravastatin Sodium (Pravachol) 40 mg PO HS [facility] Last Admin: 01/26/18 22:21 Dose: 40 mg Sitagliptin Phosphate (Januvia) 100 mg PO DAILY [facility] Last Admin: 01/27/18 08:43 Dose: 100 mg Sucralfate (Carafate Tab) 1 gm PO BID [facility] Last Admin: 01/27/18 08:40 Dose: 1 gm - Labs Labs: 01/27/18 07:40 01/27/18 07:40 PT 11.0 Seconds (9.8-13.1) 01/19/18 23:03 INR 1.0 01/19/18 23:03 APTT 27.2 Seconds (25.6-37.1) 01/19/18 23:03 - Constitutional Appears: Non-toxic, Chronically Ill - Head Exam Head Exam: NORMOCEPHALIC - Eye Exam Eye Exam: PERRL - ENT Exam ENT Exam: Mucous Membranes Dry - Neck Exam Neck Exam: absent: Lymphadenopathy - Respiratory Exam Respiratory Exam: Decreased Breath Sounds - Cardiovascular Exam Cardiovascular Exam: REGULAR RHYTHM - GI/Abdominal Exam GI & Abdominal Exam: Distended, Soft - Rectal Exam Rectal Exam: Deferred - Exam Exam: NORMAL INSPECTION Assessment and Plan (1) Pneumonia Status: Acute (2) COPD (chronic obstructive pulmonary disease) Status: Chronic - Assessment and Plan (Free Text) Assessment: cont rx for pneumonia/ CAMPBELL renal eval ongoing follow up CXR
--- NOTE | 2018-01-27 12:39 | PN ---
DATE: 01/27/2018 SUBJECTIVE: The patient seen and examined. Interim events noted. Consults noted and appreciated. Pulmonary followup and intervention noted and appreciated. The patient remains in progressive care unit, on telemetry monitoring. The patient is sleeping, arousable, but unable to provide informative history or review of systems. Denies any specific complaint. No chest pain. No shortness of breath. The patient is not a good historian. PHYSICAL EXAMINATION: GENERAL: The patient is in no acute distress. VITAL SIGNS: Stable. HEART: S1 and S2, normal and regular. LUNGS: Good bilateral air exchange. No rhonchi. Much improved since yesterday. ABDOMEN: Soft, nontender. EXTREMITIES: No edema. No calf swelling. No tenderness. No acute ischemia. CENTRAL NERVOUS SYSTEM: Essentially unchanged. DIAGNOSTIC DATA: Available diagnostic reviewed. Telemetry monitoring does not reveal significant arrhythmias. ASSESSMENT AND PLAN: Overall, the patient's general medical condition is stable. Plan as ordered. Manpreet Austin MD
--- NOTE | 2018-01-27 16:07 | CP.PCM.PN ---
Subjective - Date & Time of Evaluation Date of Evaluation: 01/27/18 - Subjective Subjective: F/U PNA Pt with no SOB on high flow O2. Objective - Vital Signs/Intake and Output Vital Signs (last 24 hours): Temp Pulse Resp BP Pulse Ox 97.7 F 78 24 113/64 91 L 01/27/18 13:00 01/27/18 13:00 01/27/18 15:57 01/27/18 13:00 01/27/18 13:00 - Medications Medications: Current Medications Acetaminophen (Tylenol 325mg Tab) 650 mg PO Q6 PRN PRN Reason: Pain, Mild (1-3) Last Admin: 01/25/18 20:58 Dose: 650 mg Albuterol/Ipratropium (Duoneb 3 Mg/0.5 Mg (3 Ml) Ud) 3 ml INH RQ4 [facility] Last Admin: 01/27/18 15:57 Dose: 3 ml Amlodipine Besylate (Norvasc) 10 mg PO DAILY [facility] Last Admin: 01/27/18 08:44 Dose: 10 mg Aspirin (Ecotrin) 81 mg PO DAILY [facility] Last Admin: 01/20/18 09:22 Dose: 81 mg Bisoprolol Fumarate (Zebeta) 5 mg PO DAILY [facility] Last Admin: 01/27/18 08:47 Dose: 5 mg Cholecalciferol (Vitamin D) 1,000 intlu PO DAILY [facility] Last Admin: 01/27/18 08:47 Dose: 1,000 intlu Famotidine (Pepcid) 40 mg PO HS [facility] Last Admin: 01/26/18 22:21 Dose: 40 mg Ferrous Gluconate (Fergon) 324 mg PO DAILY [facility] Last Admin: 01/27/18 08:42 Dose: 324 mg Furosemide (Lasix) 40 mg PO DAILY [facility] Last Admin: 01/21/18 09:34 Dose: Not Given Glipizide (Glucotrol) 10 mg PO DAILY [facility] Last Admin: 01/27/18 08:42 Dose: 10 mg Meropenem 500 mg/ Sodium (Chloride) 100 mls @ 100 mls/hr IVPB Q24H [facility]; Protocol Last Admin: 01/27/18 08:37 Dose: 100 mls/hr Insulin Human Lispro (Humalog) 0 units SC ACHS [facility]; Protocol Last Admin: 01/27/18 12:09 Dose: Not Given Isosorbide Mononitrate (Imdur Er) 30 mg PO DAILY [facility] Last Admin: 01/27/18 08:43 Dose: 30 mg Lidocaine (Lidoderm) 1 ea TD DAILY [facility] Last Admin: 01/27/18 12:26 Dose: 1 ea Losartan Potassium (Cozaar) 50 mg PO DAILY [facility] Last Admin: 01/20/18 09:26 Dose: 50 mg Methylprednisolone (Solu-Medrol) 20 mg IVP Q8 [facility] Last Admin: 01/27/18 08:46 Dose: 20 mg Pantoprazole Sodium (Protonix Ec Tab) 40 mg PO DAILY [facility] Last Admin: 01/27/18 08:45 Dose: 40 mg Pravastatin Sodium (Pravachol) 40 mg PO HS [facility] Last Admin: 01/26/18 22:21 Dose: 40 mg Sitagliptin Phosphate (Januvia) 100 mg PO DAILY [facility] Last Admin: 01/27/18 08:43 Dose: 100 mg Sucralfate (Carafate Tab) 1 gm PO BID [facility] Last Admin: 01/27/18 08:40 Dose: 1 gm - Labs Labs: 01/27/18 07:40 01/27/18 07:40 PT 11.0 Seconds (9.8-13.1) 01/19/18 23:03 INR 1.0 01/19/18 23:03 APTT 27.2 Seconds (25.6-37.1) 01/19/18 23:03 - Constitutional Appears: No Acute Distress - Head Exam Head Exam: NORMAL INSPECTION - Eye Exam Eye Exam: PERRL - ENT Exam ENT Exam: Normal Exam - Neck Exam Neck Exam: Normal Inspection - Respiratory Exam Respiratory Exam: Decreased Breath Sounds (at bases), Rhonchi (few scattered), Wheezes (few) - Cardiovascular Exam Cardiovascular Exam: REGULAR RHYTHM - GI/Abdominal Exam GI & Abdominal Exam: Soft, Normal Bowel Sounds - Extremities Exam Additional comments: Edema BLE - Neurological Exam Neurological Exam: Alert, Awake, Oriented x3 - Psychiatric Exam Psychiatric exam: Normal Mood - Skin Skin Exam: Warm Assessment and Plan (1) Pneumonia Status: Acute (2) COPD exacerbation Status: Acute - Assessment and Plan (Free Text) Plan: Continue High Flow O2, Merren, Solu-Medrol, Duoneb
[2018-01-27] MEDS: Pravastatin Sodium 40 MG TAB PO SCH (21:44)
[2018-01-28] MEDS: MethylPREDNISolone 40 mg Vial IVP SCH ×3 (00:12→17:33)
[2018-01-28] MEDS: Albuterol-Ipratrop 3 mg / 0.5 (3 ml) UD INH SCH ×6 (00:29→19:28)
[2018-01-28] MEDS: Insulin Lispro (humaLOG) 100 Units/ml Inj SC SCH ×4 (06:40→21:46)
[2018-01-28] MEDS: Meropenem 500 MG in Sodium Chloride 0.9% 100 ML IVPB SCH (08:35)
[2018-01-28] MEDS: Cholecalciferol 1,000 INTLU TAB PO SCH (08:37)
[2018-01-28] MEDS: Pantoprazole 40 mg EC Tab PO SCH (08:37)
[2018-01-28 08:47] LABS: HEPATITIS B SURFACE AG Negative (NEGATIVE)
[2018-01-28 08:52] LABS: HEPATITIS B CORE AB NEGATIVE (NEGATIVE)
[2018-01-28 09:04] LABS: HEPATITIS C ANTIBODY NEGATIVE (NEGATIVE)
[2018-01-28] MEDS: Lidocaine 5% Patch TD SCH (09:04)
--- NOTE | 2018-01-28 09:51 | PN ---
DATE: 01/26/2018 SUBJECTIVE: The patient is seen and examined. Interim events noted. Consults noted and appreciated. Nephrology, pulmonary, infectious disease followup and interventions noted and appreciated. The patient remains in progressive care unit with telemetry monitoring. The patient is sleepy, arousable, confused, not able to provide informative history or review of system. Does not seem to be in any pain at this time. No other specific issue reported by nursing staff. PHYSICAL EXAMINATION: GENERAL: The patient is in no acute distress. VITAL SIGNS: Stable. HEART: S1, S2 normal and regular. LUNGS: Good bilateral air exchange. ABDOMEN: Soft, nontender. EXTREMITIES: No calf swelling. No tenderness. No acute ischemia. CENTRAL NERVOUS SYSTEM: Essentially unchanged. DIAGNOSTIC DATA: Available diagnostic data reviewed. Telemetry monitoring does not show significant arrhythmias. ASSESSMENT AND PLAN: Overall, the patient is hemodynamically stable, will require at least temporary dialysis for acute on chronic renal failure. Plan as ordered. Manpreet Austin MD
--- NOTE | 2018-01-28 09:52 | VASCULAR ---
PROCEDURE: Date of procedure: 01/25/2018 Procedure: 1. Placement of a right arm PICC with ultrasound and fluoroscopic guidance, CPT 13413 2. PICC tip confirmation with spot radiograph and is in the superior vena cava Medications: 1 percent lidocaine Total Fluoro time: 2.6 Seconds Radiation: 0.28 MGy EBL: 2 cc HISTORY: Infection requiring long-term IV antibiotics TECHNIQUE: Following informed consent and procedure time-out, the patient was placed supine on the interventional table and the right arm prepped and draped in the usual sterile fashion. Ultrasound showed a patent and compressible right basilic vein. After the skin was anesthetized with lidocaine, the basilic vein was accessed with micro micropuncture technique using ultrasound guidance. A guidewire was then advanced under fluoroscopic guidance into the superior vena cava. An image documenting ultrasound guidance for vascular access was permanently saved. The length of the single-lumen 4 [place] PICC was trimmed to 37 centimeters and advanced through a peel-away sheath. The PICC was position with tip of PICC confirm a spot radiograph the superior vena cava. The PICC was secured to the patient's skin. The PICC was flushed. A biopatch and sterile dressing was applied. IMPRESSION: Placement of a single-lumen 4 [place] PICC trimmed to 37 centimeters via right basilic vein. The tip of the PICC is confirmed with spot radiograph and is in the superior vena cava.
--- NOTE | 2018-01-28 09:58 | CP.PCM.PN ---
Subjective - Date & Time of Evaluation Date of Evaluation: 01/28/18 Time of Evaluation: 09:57 - Subjective Subjective: states she doesn't feel well Objective - Vital Signs/Intake and Output Vital Signs (last 24 hours): Temp Pulse Resp BP Pulse Ox 97.8 F 89 20 134/71 92 L 01/28/18 08:32 01/28/18 08:37 01/28/18 08:33 01/28/18 08:37 01/28/18 08:32 - Medications Medications: Current Medications Acetaminophen (Tylenol 325mg Tab) 650 mg PO Q6 PRN PRN Reason: Pain, Mild (1-3) Last Admin: 01/27/18 21:43 Dose: 650 mg Albuterol/Ipratropium (Duoneb 3 Mg/0.5 Mg (3 Ml) Ud) 3 ml INH RQ4 [facility] Last Admin: 01/28/18 07:46 Dose: 3 ml Amlodipine Besylate (Norvasc) 10 mg PO DAILY [facility] Last Admin: 01/28/18 08:37 Dose: 10 mg Aspirin (Ecotrin) 81 mg PO DAILY [facility] Last Admin: 01/20/18 09:22 Dose: 81 mg Bisoprolol Fumarate (Zebeta) 5 mg PO DAILY [facility] Last Admin: 01/28/18 08:37 Dose: 5 mg Cholecalciferol (Vitamin D) 1,000 intlu PO DAILY [facility] Last Admin: 01/28/18 08:37 Dose: 1,000 intlu Famotidine (Pepcid) 40 mg PO HS [facility] Last Admin: 01/27/18 21:44 Dose: 40 mg Ferrous Gluconate (Fergon) 324 mg PO DAILY [facility] Last Admin: 01/28/18 08:36 Dose: 324 mg Furosemide (Lasix) 40 mg PO DAILY [facility] Last Admin: 01/21/18 09:34 Dose: Not Given Glipizide (Glucotrol) 10 mg PO DAILY [facility] Last Admin: 01/28/18 08:36 Dose: 10 mg Meropenem 500 mg/ Sodium (Chloride) 100 mls @ 100 mls/hr IVPB Q24H [facility]; Protocol Last Admin: 01/28/18 08:35 Dose: 100 mls/hr Insulin Human Lispro (Humalog) 0 units SC ACHS [facility]; Protocol Last Admin: 01/28/18 06:40 Dose: 3 units Isosorbide Mononitrate (Imdur Er) 30 mg PO DAILY [facility] Last Admin: 01/28/18 08:36 Dose: 30 mg Lidocaine (Lidoderm) 1 ea TD DAILY [facility] Last Admin: 01/28/18 09:04 Dose: Not Given Losartan Potassium (Cozaar) 50 mg PO DAILY [facility] Last Admin: 01/20/18 09:26 Dose: 50 mg Methylprednisolone (Solu-Medrol) 20 mg IVP Q8 [facility] Last Admin: 01/28/18 08:36 Dose: 20 mg Oxycodone/Acetaminophen (Percocet 5/325 Mg Tab) 1 tab PO Q8 PRN PRN Reason: Pain, moderate (4-7) Stop: 01/31/18 02:16 Pantoprazole Sodium (Protonix Ec Tab) 40 mg PO DAILY [facility] Last Admin: 01/28/18 08:37 Dose: 40 mg Pravastatin Sodium (Pravachol) 40 mg PO HS [facility] Last Admin: 01/27/18 21:44 Dose: 40 mg Sitagliptin Phosphate (Januvia) 100 mg PO DAILY [facility] Last Admin: 01/28/18 08:38 Dose: 100 mg Sucralfate (Carafate Tab) 1 gm PO BID [facility] Last Admin: 01/28/18 08:36 Dose: 1 gm - Labs Labs: 01/27/18 07:40 01/27/18 07:40 PT 11.0 Seconds (9.8-13.1) 01/19/18 23:03 INR 1.0 01/19/18 23:03 APTT 27.2 Seconds (25.6-37.1) 01/19/18 23:03 - Neck Exam Neck Exam: Normal Inspection - Respiratory Exam Respiratory Exam: Wheezes - Cardiovascular Exam Cardiovascular Exam: REGULAR RHYTHM - GI/Abdominal Exam GI & Abdominal Exam: Soft, Normal Bowel Sounds - Rectal Exam Rectal Exam: Deferred Assessment and Plan - Assessment and Plan (Free Text) Assessment: 78 yo female with GERD from GI standpoint, no acute changes pulm care appreciated
--- NOTE | 2018-01-28 10:00 | PN ---
DATE: 01/28/2018 SUBJECTIVE: The patient is seen and examined. Interim events noted. Consults noted and appreciated. The patient remains in progressive care unit on telemetry monitoring. The patient had dialysis done, tolerated well. No acute complication. The patient looks much more awake and responsive, feels okay. Denies any specific complaint of chest pain or shortness of breath. PHYSICAL EXAMINATION: GENERAL: The patient is in no acute distress. VITAL SIGNS: Stable. HEART: S1, S2 normal and regular. LUNGS: Good bilateral air exchange. ABDOMEN: Soft, nontender. EXTREMITIES: No calf swelling. No tenderness. No acute ischemia. CENTRAL NERVOUS SYSTEM: Essentially unchanged. DIAGNOSTIC DATA: Available diagnostic data reviewed. Telemetry monitoring does not show significant arrhythmias. ASSESSMENT AND PLAN: Overall, the patient's general medical condition is stable and improved. Plan as ordered. Manpreet Austin MD
--- NOTE | 2018-01-28 10:27 | CP.PCM.PN ---
Subjective - Date & Time of Evaluation Date of Evaluation: 01/28/18 Time of Evaluation: 10:27 - Subjective Subjective: 78 yo HF with pmh/o htn, dm, copd, chf, ckd, low back pain, being treated for pneumonia, sepsis, s/p hd on sunday feeling slightly better, no cp, mild sob for hd today Objective - Vital Signs/Intake and Output Vital Signs (last 24 hours): Temp Pulse Resp BP Pulse Ox 97.8 F 89 20 134/71 92 L 01/28/18 08:32 01/28/18 08:37 01/28/18 08:33 01/28/18 08:37 01/28/18 08:32 - Medications Medications: Current Medications Acetaminophen (Tylenol 325mg Tab) 650 mg PO Q6 PRN PRN Reason: Pain, Mild (1-3) Last Admin: 01/27/18 21:43 Dose: 650 mg Albuterol/Ipratropium (Duoneb 3 Mg/0.5 Mg (3 Ml) Ud) 3 ml INH RQ4 [facility] Last Admin: 01/28/18 07:46 Dose: 3 ml Amlodipine Besylate (Norvasc) 10 mg PO DAILY [facility] Last Admin: 01/28/18 08:37 Dose: 10 mg Aspirin (Ecotrin) 81 mg PO DAILY [facility] Last Admin: 01/20/18 09:22 Dose: 81 mg Bisoprolol Fumarate (Zebeta) 5 mg PO DAILY [facility] Last Admin: 01/28/18 08:37 Dose: 5 mg Cholecalciferol (Vitamin D) 1,000 intlu PO DAILY [facility] Last Admin: 01/28/18 08:37 Dose: 1,000 intlu Famotidine (Pepcid) 40 mg PO HS [facility] Last Admin: 01/27/18 21:44 Dose: 40 mg Ferrous Gluconate (Fergon) 324 mg PO DAILY [facility] Last Admin: 01/28/18 08:36 Dose: 324 mg Furosemide (Lasix) 40 mg PO DAILY [facility] Last Admin: 01/21/18 09:34 Dose: Not Given Glipizide (Glucotrol) 10 mg PO DAILY [facility] Last Admin: 01/28/18 08:36 Dose: 10 mg Meropenem 500 mg/ Sodium (Chloride) 100 mls @ 100 mls/hr IVPB Q24H [facility]; Protocol Last Admin: 01/28/18 08:35 Dose: 100 mls/hr Insulin Human Lispro (Humalog) 0 units SC ACHS [facility]; Protocol Last Admin: 01/28/18 06:40 Dose: 3 units Isosorbide Mononitrate (Imdur Er) 30 mg PO DAILY [facility] Last Admin: 01/28/18 08:36 Dose: 30 mg Lidocaine (Lidoderm) 1 ea TD DAILY [facility] Last Admin: 01/28/18 09:04 Dose: Not Given Losartan Potassium (Cozaar) 50 mg PO DAILY [facility] Last Admin: 01/20/18 09:26 Dose: 50 mg Methylprednisolone (Solu-Medrol) 20 mg IVP Q8 [facility] Last Admin: 01/28/18 08:36 Dose: 20 mg Oxycodone/Acetaminophen (Percocet 5/325 Mg Tab) 1 tab PO Q8 PRN PRN Reason: Pain, moderate (4-7) Stop: 01/31/18 02:16 Pantoprazole Sodium (Protonix Ec Tab) 40 mg PO DAILY [facility] Last Admin: 01/28/18 08:37 Dose: 40 mg Pravastatin Sodium (Pravachol) 40 mg PO HS [facility] Last Admin: 01/27/18 21:44 Dose: 40 mg Sitagliptin Phosphate (Januvia) 100 mg PO DAILY [facility] Last Admin: 01/28/18 08:38 Dose: 100 mg Sucralfate (Carafate Tab) 1 gm PO BID [facility] Last Admin: 01/28/18 08:36 Dose: 1 gm - Labs Labs: 01/27/18 07:40 01/27/18 07:40 PT 11.0 Seconds (9.8-13.1) 01/19/18 23:03 INR 1.0 01/19/18 23:03 APTT 27.2 Seconds (25.6-37.1) 01/19/18 23:03 - Constitutional Appears: Well, Non-toxic, No Acute Distress - Head Exam Head Exam: ATRAUMATIC, NORMAL INSPECTION, NORMOCEPHALIC - Eye Exam Eye Exam: EOMI, Normal appearance, PERRL Pupil Exam: NORMAL ACCOMODATION - ENT Exam ENT Exam: Mucous Membranes Moist - Respiratory Exam Respiratory Exam: Rales, NORMAL BREATHING PATTERN - Cardiovascular Exam Cardiovascular Exam: REGULAR RHYTHM, +S1, +S2 - Rectal Exam Rectal Exam: Deferred - Extremities Exam Additional comments: no edema - Neurological Exam Neurological Exam: Alert, Awake, CN II-XII Intact, Oriented x3 - Psychiatric Exam Psychiatric exam: Normal Affect, Normal Mood - Skin Skin Exam: Normal Color, Warm Assessment and Plan - Assessment and Plan (Free Text) Assessment: 77 yo HF with pmh/o htn, dm, chf, cad, ckd, copd , djd/ ? spinal stenosis with RUQ pain, , increased bun/cr, decreased po intake, high wbc, cough 1. CAMPBELL on ckd-3 2. DM 3. cholelithiasis 4. HTN 5. Met. acidosis 6. Mycoplasma pneumonia will schedule for HD today will continue hd until renal function is back to her base line c/w iv abx d/w pt's daughter at bed side check bmp in am
[2018-01-28 10:48] LABS: HEMOGLOBIN 10.6 g/dL (12.0-16.0); MEAN CORPUSCULAR HEMOGLOBIN 29.4 pg (27.0-31.0); RBC 3.62 Mil/uL (3.80-5.20); RED CELL DISTRIBUTION WIDTH 14.6 % (11.5-14.5); WHITE BLOOD COUNT 14.7 K/uL (4.8-10.8)
[2018-01-28 11:05] LABS: ALB/GLOB RATIO 0.9 (1.0-2.1); CALCIUM 8.1 mg/dL (8.4-10.2)
--- NOTE | 2018-01-28 15:15 | CP.PCM.PN ---
Subjective - Date & Time of Evaluation Date of Evaluation: 01/28/18 - Subjective Subjective: F/U PNA Pt with cough, difficulty to bring up phlegms, no SOB on High Flow O2. Objective - Vital Signs/Intake and Output Vital Signs (last 24 hours): Temp Pulse Resp BP Pulse Ox 97.6 F 53 L 20 169/82 H 97 01/28/18 13:03 01/28/18 13:03 01/28/18 13:03 01/28/18 13:03 01/28/18 13:03 - Medications Medications: Current Medications Acetaminophen (Tylenol 325mg Tab) 650 mg PO Q6 PRN PRN Reason: Pain, Mild (1-3) Last Admin: 01/27/18 21:43 Dose: 650 mg Albuterol/Ipratropium (Duoneb 3 Mg/0.5 Mg (3 Ml) Ud) 3 ml INH RQ4 [facility] Last Admin: 01/28/18 11:03 Dose: 3 ml Amlodipine Besylate (Norvasc) 10 mg PO DAILY [facility] Last Admin: 01/28/18 08:37 Dose: 10 mg Aspirin (Ecotrin) 81 mg PO DAILY [facility] Last Admin: 01/20/18 09:22 Dose: 81 mg Bisoprolol Fumarate (Zebeta) 5 mg PO DAILY [facility] Last Admin: 01/28/18 08:37 Dose: 5 mg Cholecalciferol (Vitamin D) 1,000 intlu PO DAILY [facility] Last Admin: 01/28/18 08:37 Dose: 1,000 intlu Famotidine (Pepcid) 40 mg PO HS [facility] Last Admin: 01/27/18 21:44 Dose: 40 mg Ferrous Gluconate (Fergon) 324 mg PO DAILY [facility] Last Admin: 01/28/18 08:36 Dose: 324 mg Furosemide (Lasix) 40 mg PO DAILY [facility] Last Admin: 01/21/18 09:34 Dose: Not Given Glipizide (Glucotrol) 10 mg PO DAILY [facility] Last Admin: 01/28/18 08:36 Dose: 10 mg Meropenem 500 mg/ Sodium (Chloride) 100 mls @ 100 mls/hr IVPB Q24H [facility]; Protocol Last Admin: 01/28/18 08:35 Dose: 100 mls/hr Fluconazole (Diflucan Iv 100 Mg/50 Ml Ns) 50 mls @ 50 mls/hr IVPB DAILY [facility]; Protocol Insulin Human Lispro (Humalog) 0 units SC ACHS [facility]; Protocol Last Admin: 01/28/18 12:15 Dose: 4 units Isosorbide Mononitrate (Imdur Er) 30 mg PO DAILY [facility] Last Admin: 01/28/18 08:36 Dose: 30 mg Lidocaine (Lidoderm) 1 ea TD DAILY [facility] Last Admin: 01/28/18 09:04 Dose: Not Given Losartan Potassium (Cozaar) 50 mg PO DAILY [facility] Last Admin: 01/20/18 09:26 Dose: 50 mg Methylprednisolone (Solu-Medrol) 20 mg IVP Q8 [facility] Last Admin: 01/28/18 08:36 Dose: 20 mg Oxycodone/Acetaminophen (Percocet 5/325 Mg Tab) 1 tab PO Q8 PRN PRN Reason: Pain, moderate (4-7) Stop: 01/31/18 02:16 Pantoprazole Sodium (Protonix Ec Tab) 40 mg PO DAILY [facility] Last Admin: 01/28/18 08:37 Dose: 40 mg Pravastatin Sodium (Pravachol) 40 mg PO HS [facility] Last Admin: 01/27/18 21:44 Dose: 40 mg Sitagliptin Phosphate (Januvia) 100 mg PO DAILY [facility] Last Admin: 01/28/18 08:38 Dose: 100 mg Sucralfate (Carafate Tab) 1 gm PO BID [facility] Last Admin: 01/28/18 08:36 Dose: 1 gm - Labs Labs: 01/28/18 10:38 01/28/18 10:38 PT 11.0 Seconds (9.8-13.1) 01/19/18 23:03 INR 1.0 01/19/18 23:03 APTT 27.2 Seconds (25.6-37.1) 01/19/18 23:03 - Constitutional Appears: No Acute Distress - Head Exam Head Exam: NORMAL INSPECTION - Eye Exam Eye Exam: PERRL - ENT Exam ENT Exam: Normal Exam - Neck Exam Neck Exam: Normal Inspection - Respiratory Exam Respiratory Exam: Decreased Breath Sounds (at bases), Rhonchi (scattered), Wheezes - Cardiovascular Exam Cardiovascular Exam: REGULAR RHYTHM - GI/Abdominal Exam GI & Abdominal Exam: Soft, Normal Bowel Sounds - Extremities Exam Additional comments: Edema ble - Neurological Exam Neurological Exam: Alert, Oriented x3 - Psychiatric Exam Psychiatric exam: Normal Mood - Skin Skin Exam: Warm Assessment and Plan (1) Pneumonia Status: Acute (2) COPD exacerbation Status: Acute - Assessment and Plan (Free Text) Plan: Pt on HD, contiue High Flow O2, repeat CXR in AM, continue Merren, Duoneb and rest of Tx.
[2018-01-28] MEDS: Pravastatin Sodium 40 MG TAB PO SCH (21:30)
[2018-01-29] MEDS: MethylPREDNISolone 40 mg Vial IVP SCH ×3 (00:25→17:47)
[2018-01-29] MEDS: Albuterol-Ipratrop 3 mg / 0.5 (3 ml) UD INH SCH ×7 (01:13→23:54)
[2018-01-29] MEDS: Insulin Lispro (humaLOG) 100 Units/ml Inj SC SCH ×4 (06:38→22:27)
--- NOTE | 2018-01-29 07:39 | CP.PCM.PN ---
Subjective - Date & Time of Evaluation Date of Evaluation: 01/29/18 Time of Evaluation: 07:39 - Subjective Subjective: Patient seen and examined this morning with Dr Austin, doing better, reports mild abd pain, otherwise denies sob or cough, no CP or palpitations. Objective - Vital Signs/Intake and Output Vital Signs (last 24 hours): Temp Pulse Resp BP Pulse Ox 98 F 87 20 139/67 93 L 01/29/18 05:00 01/29/18 05:00 01/29/18 07:15 01/29/18 05:00 01/29/18 05:00 - Medications Medications: Current Medications Acetaminophen (Tylenol 325mg Tab) 650 mg PO Q6 PRN PRN Reason: Pain, Mild (1-3) Last Admin: 01/27/18 21:43 Dose: 650 mg Albuterol/Ipratropium (Duoneb 3 Mg/0.5 Mg (3 Ml) Ud) 3 ml INH RQ4 [facility] Last Admin: 01/29/18 07:15 Dose: 3 ml Amlodipine Besylate (Norvasc) 10 mg PO DAILY [facility] Last Admin: 01/28/18 08:37 Dose: 10 mg Aspirin (Ecotrin) 81 mg PO DAILY [facility] Last Admin: 01/20/18 09:22 Dose: 81 mg Bisoprolol Fumarate (Zebeta) 5 mg PO DAILY [facility] Last Admin: 01/28/18 08:37 Dose: 5 mg Cholecalciferol (Vitamin D) 1,000 intlu PO DAILY [facility] Last Admin: 01/28/18 08:37 Dose: 1,000 intlu Famotidine (Pepcid) 40 mg PO HS [facility] Last Admin: 01/28/18 21:30 Dose: 40 mg Ferrous Gluconate (Fergon) 324 mg PO DAILY [facility] Last Admin: 01/28/18 08:36 Dose: 324 mg Furosemide (Lasix) 40 mg PO DAILY [facility] Last Admin: 01/21/18 09:34 Dose: Not Given Glipizide (Glucotrol) 10 mg PO DAILY [facility] Last Admin: 01/28/18 08:36 Dose: 10 mg Meropenem 500 mg/ Sodium (Chloride) 100 mls @ 100 mls/hr IVPB Q24H [facility]; Protocol Last Admin: 01/28/18 08:35 Dose: 100 mls/hr Fluconazole (Diflucan Iv 100 Mg/50 Ml Ns) 50 mls @ 50 mls/hr IVPB DAILY [facility]; Protocol Insulin Human Lispro (Humalog) 0 units SC ACHS [facility]; Protocol Last Admin: 01/29/18 06:38 Dose: 4 units Isosorbide Mononitrate (Imdur Er) 30 mg PO DAILY [facility] Last Admin: 01/28/18 08:36 Dose: 30 mg Lidocaine (Lidoderm) 1 ea TD DAILY [facility] Last Admin: 01/28/18 09:04 Dose: Not Given Losartan Potassium (Cozaar) 50 mg PO DAILY [facility] Last Admin: 01/20/18 09:26 Dose: 50 mg Methylprednisolone (Solu-Medrol) 20 mg IVP Q8 [facility] Last Admin: 01/29/18 00:25 Dose: 20 mg Oxycodone/Acetaminophen (Percocet 5/325 Mg Tab) 1 tab PO Q8 PRN PRN Reason: Pain, moderate (4-7) Stop: 01/31/18 02:16 Pantoprazole Sodium (Protonix Ec Tab) 40 mg PO DAILY [facility] Last Admin: 01/28/18 08:37 Dose: 40 mg Pravastatin Sodium (Pravachol) 40 mg PO HS [facility] Last Admin: 01/28/18 21:30 Dose: 40 mg Sitagliptin Phosphate (Januvia) 100 mg PO DAILY [facility] Last Admin: 01/28/18 08:38 Dose: 100 mg Sucralfate (Carafate Tab) 1 gm PO BID [facility] Last Admin: 01/28/18 17:32 Dose: 1 gm - Labs Labs: 01/28/18 10:38 01/28/18 10:38 PT 11.0 Seconds (9.8-13.1) 01/19/18 23:03 INR 1.0 01/19/18 23:03 APTT 27.2 Seconds (25.6-37.1) 01/19/18 23:03 - Constitutional Appears: No Acute Distress - Head Exam Head Exam: NORMAL INSPECTION - Respiratory Exam Respiratory Exam: Decreased Breath Sounds, Prolonged Expiratory Phase, Rhonchi. absent: Accessory Muscle Use - Cardiovascular Exam Cardiovascular Exam: REGULAR RHYTHM, +S1, +S2. absent: Tachycardia - GI/Abdominal Exam GI & Abdominal Exam: Soft. absent: Distended, Tenderness - Extremities Exam Extremities Exam: absent: Pedal Edema - Neurological Exam Neurological Exam: Alert, Awake, Oriented x3 - Skin Skin Exam: Dry, Warm Assessment and Plan - Assessment and Plan (Free Text) Assessment: 77 yo female patient admitted due to pneumonia, positive Mycoplasma, sputum cx positive for yeasts, admission complicated with CAMPBELL on HD. Plan: - afebrile, VS stable - Abdominal pain likely from BL lower lobe PNA - improving renal function in HD - GI consulted, input appreciated - ID on board, input appreciated - Pulmonology on board, input appreciated - Nephro consulted, input appreciated - continue rest of plan as ordered
--- NOTE | 2018-01-29 08:49 | CP.PCM.PN ---
Subjective - Date & Time of Evaluation Date of Evaluation: 01/29/18 Time of Evaluation: 08:49 - Subjective Subjective: pt is still c/o mild sob, no cp, no palpitations, no nausea,vomitings s/p hd yesterday Objective - Vital Signs/Intake and Output Vital Signs (last 24 hours): Temp Pulse Resp BP Pulse Ox 97.5 F L 94 H 20 151/80 H 95 01/29/18 08:33 01/29/18 08:33 01/29/18 08:33 01/29/18 08:33 01/29/18 08:33 - Medications Medications: Current Medications Acetaminophen (Tylenol 325mg Tab) 650 mg PO Q6 PRN PRN Reason: Pain, Mild (1-3) Last Admin: 01/27/18 21:43 Dose: 650 mg Albuterol/Ipratropium (Duoneb 3 Mg/0.5 Mg (3 Ml) Ud) 3 ml INH RQ4 [facility] Last Admin: 01/29/18 07:15 Dose: 3 ml Amlodipine Besylate (Norvasc) 10 mg PO DAILY [facility] Last Admin: 01/28/18 08:37 Dose: 10 mg Aspirin (Ecotrin) 81 mg PO DAILY [facility] Last Admin: 01/20/18 09:22 Dose: 81 mg Bisoprolol Fumarate (Zebeta) 5 mg PO DAILY [facility] Last Admin: 01/28/18 08:37 Dose: 5 mg Cholecalciferol (Vitamin D) 1,000 intlu PO DAILY [facility] Last Admin: 01/28/18 08:37 Dose: 1,000 intlu Famotidine (Pepcid) 40 mg PO HS [facility] Last Admin: 01/28/18 21:30 Dose: 40 mg Ferrous Gluconate (Fergon) 324 mg PO DAILY [facility] Last Admin: 01/28/18 08:36 Dose: 324 mg Furosemide (Lasix) 40 mg PO DAILY [facility] Last Admin: 01/21/18 09:34 Dose: Not Given Glipizide (Glucotrol) 10 mg PO DAILY [facility] Last Admin: 01/28/18 08:36 Dose: 10 mg Meropenem 500 mg/ Sodium (Chloride) 100 mls @ 100 mls/hr IVPB Q24H [facility]; Protocol Last Admin: 01/28/18 08:35 Dose: 100 mls/hr Fluconazole (Diflucan Iv 100 Mg/50 Ml Ns) 50 mls @ 50 mls/hr IVPB DAILY [facility]; Protocol Insulin Human Lispro (Humalog) 0 units SC ACHS [facility]; Protocol Last Admin: 01/29/18 06:38 Dose: 4 units Isosorbide Mononitrate (Imdur Er) 30 mg PO DAILY [facility] Last Admin: 01/28/18 08:36 Dose: 30 mg Lidocaine (Lidoderm) 1 ea TD DAILY [facility] Last Admin: 01/28/18 09:04 Dose: Not Given Losartan Potassium (Cozaar) 50 mg PO DAILY [facility] Last Admin: 01/20/18 09:26 Dose: 50 mg Methylprednisolone (Solu-Medrol) 20 mg IVP Q8 [facility] Last Admin: 01/29/18 00:25 Dose: 20 mg Oxycodone/Acetaminophen (Percocet 5/325 Mg Tab) 1 tab PO Q8 PRN PRN Reason: Pain, moderate (4-7) Stop: 01/31/18 02:16 Pantoprazole Sodium (Protonix Ec Tab) 40 mg PO DAILY [facility] Last Admin: 01/28/18 08:37 Dose: 40 mg Pravastatin Sodium (Pravachol) 40 mg PO HS [facility] Last Admin: 01/28/18 21:30 Dose: 40 mg Sitagliptin Phosphate (Januvia) 100 mg PO DAILY [facility] Last Admin: 01/28/18 08:38 Dose: 100 mg Sucralfate (Carafate Tab) 1 gm PO BID [facility] Last Admin: 01/28/18 17:32 Dose: 1 gm - Labs Labs: 01/28/18 10:38 01/28/18 10:38 PT 11.0 Seconds (9.8-13.1) 01/19/18 23:03 INR 1.0 01/19/18 23:03 APTT 27.2 Seconds (25.6-37.1) 01/19/18 23:03 - Constitutional Appears: Well, Non-toxic, No Acute Distress - Head Exam Head Exam: ATRAUMATIC, NORMAL INSPECTION, NORMOCEPHALIC - Eye Exam Eye Exam: EOMI, Normal appearance, PERRL Pupil Exam: NORMAL ACCOMODATION - ENT Exam ENT Exam: Mucous Membranes Moist - Neck Exam Neck Exam: Full ROM - Respiratory Exam Respiratory Exam: Rales, NORMAL BREATHING PATTERN - Cardiovascular Exam Cardiovascular Exam: REGULAR RHYTHM, +S1, +S2 - GI/Abdominal Exam GI & Abdominal Exam: Soft, Normal Bowel Sounds - Extremities Exam Extremities Exam: Full ROM, Normal Inspection Additional comments: no edema - Neurological Exam Neurological Exam: Alert, Awake, CN II-XII Intact, Oriented x3 - Skin Skin Exam: Dry, Intact, Normal Color, Warm Assessment and Plan - Assessment and Plan (Free Text) Assessment: 77 yo HF with pmh/o htn, dm, chf, cad, ckd, copd , djd/ ? spinal stenosis with RUQ pain, , increased bun/cr, decreased po intake, high wbc, cough 1. CAMPBELL on ckd-3 2. DM 3. cholelithiasis 4. HTN 5. Met. acidosis 6. Mycoplasma pneumonia s/p HD yesterday will continue hd until renal function is back to her base line c/w iv abx consider physical therapy evaluation
[2018-01-29] MEDS: Fluconazole IV 100mg/50 ml NS 50 ML IVPB SCH (09:18)
[2018-01-29] MEDS: Lidocaine 5% Patch TD SCH (09:20)
[2018-01-29] MEDS: Meropenem 500 MG in Sodium Chloride 0.9% 100 ML IVPB SCH (09:20)
[2018-01-29] MEDS: Pantoprazole 40 mg EC Tab PO SCH (09:23)
[2018-01-29] MEDS: Cholecalciferol 1,000 INTLU TAB PO SCH (09:24)
--- NOTE | 2018-01-29 09:51 | CP.PCM.PN ---
Subjective - Date & Time of Evaluation Date of Evaluation: 01/29/18 Time of Evaluation: 09:50 - Subjective Subjective: no overnight events Objective - Vital Signs/Intake and Output Vital Signs (last 24 hours): Temp Pulse Resp BP Pulse Ox 97.5 F L 94 H 20 151/80 H 95 01/29/18 08:33 01/29/18 09:22 01/29/18 08:33 01/29/18 09:22 01/29/18 08:33 - Medications Medications: Current Medications Acetaminophen (Tylenol 325mg Tab) 650 mg PO Q6 PRN PRN Reason: Pain, Mild (1-3) Last Admin: 01/27/18 21:43 Dose: 650 mg Albuterol/Ipratropium (Duoneb 3 Mg/0.5 Mg (3 Ml) Ud) 3 ml INH RQ4 [facility] Last Admin: 01/29/18 07:15 Dose: 3 ml Amlodipine Besylate (Norvasc) 10 mg PO DAILY [facility] Last Admin: 01/29/18 09:22 Dose: 10 mg Aspirin (Ecotrin) 81 mg PO DAILY [facility] Last Admin: 01/20/18 09:22 Dose: 81 mg Bisoprolol Fumarate (Zebeta) 5 mg PO DAILY [facility] Last Admin: 01/29/18 09:25 Dose: 5 mg Cholecalciferol (Vitamin D) 1,000 intlu PO DAILY [facility] Last Admin: 01/29/18 09:24 Dose: 1,000 intlu Famotidine (Pepcid) 40 mg PO HS [facility] Last Admin: 01/28/18 21:30 Dose: 40 mg Ferrous Gluconate (Fergon) 324 mg PO DAILY [facility] Last Admin: 01/29/18 09:18 Dose: 324 mg Furosemide (Lasix) 40 mg PO DAILY [facility] Last Admin: 01/21/18 09:34 Dose: Not Given Glipizide (Glucotrol) 10 mg PO DAILY [facility] Last Admin: 01/29/18 09:19 Dose: 10 mg Meropenem 500 mg/ Sodium (Chloride) 100 mls @ 100 mls/hr IVPB Q24H [facility]; Protocol Last Admin: 01/29/18 09:20 Dose: 100 mls/hr Fluconazole (Diflucan Iv 100 Mg/50 Ml Ns) 50 mls @ 50 mls/hr IVPB DAILY [facility]; Protocol Last Admin: 01/29/18 09:18 Dose: 50 mls/hr Insulin Human Lispro (Humalog) 0 units SC ACHS [facility]; Protocol Last Admin: 01/29/18 06:38 Dose: 4 units Isosorbide Mononitrate (Imdur Er) 30 mg PO DAILY [facility] Last Admin: 01/29/18 09:19 Dose: 30 mg Lidocaine (Lidoderm) 1 ea TD DAILY [facility] Last Admin: 01/29/18 09:20 Dose: 1 ea Losartan Potassium (Cozaar) 50 mg PO DAILY [facility] Last Admin: 01/20/18 09:26 Dose: 50 mg Methylprednisolone (Solu-Medrol) 20 mg IVP Q8 [facility] Last Admin: 01/29/18 09:23 Dose: 20 mg Oxycodone/Acetaminophen (Percocet 5/325 Mg Tab) 1 tab PO Q8 PRN PRN Reason: Pain, moderate (4-7) Stop: 01/31/18 02:16 Pantoprazole Sodium (Protonix Ec Tab) 40 mg PO DAILY [facility] Last Admin: 01/29/18 09:23 Dose: 40 mg Pravastatin Sodium (Pravachol) 40 mg PO HS [facility] Last Admin: 01/28/18 21:30 Dose: 40 mg Sitagliptin Phosphate (Januvia) 100 mg PO DAILY [facility] Last Admin: 01/29/18 09:19 Dose: 100 mg Sucralfate (Carafate Tab) 1 gm PO BID [facility] Last Admin: 01/29/18 09:18 Dose: 1 gm - Labs Labs: 01/28/18 10:38 01/28/18 10:38 PT 11.0 Seconds (9.8-13.1) 01/19/18 23:03 INR 1.0 01/19/18 23:03 APTT 27.2 Seconds (25.6-37.1) 01/19/18 23:03 - Head Exam Head Exam: NORMOCEPHALIC - Neck Exam Neck Exam: Normal Inspection - Respiratory Exam Respiratory Exam: Wheezes - GI/Abdominal Exam GI & Abdominal Exam: Soft, Normal Bowel Sounds Assessment and Plan - Assessment and Plan (Free Text) Assessment: 78 yo female with GERD no gi complaints cont resp care
[2018-01-29 10:22] LABS: BASO % 0.3 % (0.0-2.0); HEMOGLOBIN 10.9 g/dL (12.0-16.0); LYMPH # 0.1 K/uL (1.0-4.3); LYMPH % 0.8 % (20.0-40.0); MEAN CELL VOLUME 88.9 fl (81.0-99.0); MEAN CORPUSCULAR HGB CONC 32.6 g/dL (33.0-37.0); MEAN PLATELET VOLUME 8.4 fl (7.2-11.7); MONO % 6.8 % (0.0-10.0); NEUT # 13.7 K/uL (1.8-7.0); NEUT % 92.1 % (50.0-75.0); NRBC % 0.1 % (0.0-0.0); PLATELET COUNT 365 K/uL (130-400); RBC 3.77 Mil/uL (3.80-5.20); RED CELL DISTRIBUTION WIDTH 14.6 % (11.5-14.5); WHITE BLOOD COUNT 14.9 K/uL (4.8-10.8)
[2018-01-29 11:03] LABS: CALCIUM 8.5 mg/dL (8.4-10.2)
[2018-01-29 13:13] LABS: LYMPHOCYTE 2 % (20-50); MONOCYTE 6 % (0-10); NEUTROPHIL 92 % (42-75); TOTAL CELLS COUNTED 100
[2018-01-29 13:14] LABS: HYPOCHROMIC SLIGHT; PLATELET ESTIMATE NORMAL (NORMAL)
--- NOTE | 2018-01-29 14:17 | CP.PCM.PN ---
Subjective - Date & Time of Evaluation Date of Evaluation: 01/29/18 - Subjective Subjective: F/U PNA No SOB on high flow O2, cough with scant amount of whitish/yellowish phlegms, Objective - Vital Signs/Intake and Output Vital Signs (last 24 hours): Temp Pulse Resp BP Pulse Ox 97.7 F 78 20 146/76 95 01/29/18 12:27 01/29/18 12:27 01/29/18 12:27 01/29/18 12:27 01/29/18 12:27 - Medications Medications: Current Medications Acetaminophen (Tylenol 325mg Tab) 650 mg PO Q6 PRN PRN Reason: Pain, Mild (1-3) Last Admin: 01/27/18 21:43 Dose: 650 mg Albuterol/Ipratropium (Duoneb 3 Mg/0.5 Mg (3 Ml) Ud) 3 ml INH RQ4 [facility] Last Admin: 01/29/18 11:21 Dose: 3 ml Amlodipine Besylate (Norvasc) 10 mg PO DAILY [facility] Last Admin: 01/29/18 09:22 Dose: 10 mg Aspirin (Ecotrin) 81 mg PO DAILY [facility] Last Admin: 01/20/18 09:22 Dose: 81 mg Bisoprolol Fumarate (Zebeta) 5 mg PO DAILY [facility] Last Admin: 01/29/18 09:25 Dose: 5 mg Cholecalciferol (Vitamin D) 1,000 intlu PO DAILY [facility] Last Admin: 01/29/18 09:24 Dose: 1,000 intlu Famotidine (Pepcid) 40 mg PO HS [facility] Last Admin: 01/28/18 21:30 Dose: 40 mg Ferrous Gluconate (Fergon) 324 mg PO DAILY [facility] Last Admin: 01/29/18 09:18 Dose: 324 mg Furosemide (Lasix) 40 mg PO DAILY [facility] Last Admin: 01/21/18 09:34 Dose: Not Given Glipizide (Glucotrol) 10 mg PO DAILY [facility] Last Admin: 01/29/18 09:19 Dose: 10 mg Meropenem 500 mg/ Sodium (Chloride) 100 mls @ 100 mls/hr IVPB Q24H [facility]; Protocol Last Admin: 01/29/18 09:20 Dose: 100 mls/hr Fluconazole (Diflucan Iv 100 Mg/50 Ml Ns) 50 mls @ 50 mls/hr IVPB DAILY [facility]; Protocol Last Admin: 01/29/18 09:18 Dose: 50 mls/hr Insulin Human Lispro (Humalog) 0 units SC ACHS [facility]; Protocol Last Admin: 01/29/18 13:10 Dose: 6 units Isosorbide Mononitrate (Imdur Er) 30 mg PO DAILY [facility] Last Admin: 01/29/18 09:19 Dose: 30 mg Lidocaine (Lidoderm) 1 ea TD DAILY [facility] Last Admin: 01/29/18 09:20 Dose: 1 ea Losartan Potassium (Cozaar) 50 mg PO DAILY [facility] Last Admin: 01/20/18 09:26 Dose: 50 mg Methylprednisolone (Solu-Medrol) 20 mg IVP Q8 [facility] Last Admin: 01/29/18 09:23 Dose: 20 mg Oxycodone/Acetaminophen (Percocet 5/325 Mg Tab) 1 tab PO Q8 PRN PRN Reason: Pain, moderate (4-7) Stop: 01/31/18 02:16 Pantoprazole Sodium (Protonix Ec Tab) 40 mg PO DAILY [facility] Last Admin: 01/29/18 09:23 Dose: 40 mg Pravastatin Sodium (Pravachol) 40 mg PO HS [facility] Last Admin: 01/28/18 21:30 Dose: 40 mg Sitagliptin Phosphate (Januvia) 100 mg PO DAILY [facility] Last Admin: 01/29/18 09:19 Dose: 100 mg Sucralfate (Carafate Tab) 1 gm PO BID [facility] Last Admin: 01/29/18 09:18 Dose: 1 gm - Labs Labs: 01/29/18 09:55 01/29/18 09:55 PT 11.0 Seconds (9.8-13.1) 01/19/18 23:03 INR 1.0 01/19/18 23:03 APTT 27.2 Seconds (25.6-37.1) 01/19/18 23:03 - Constitutional Appears: No Acute Distress - Head Exam Head Exam: NORMAL INSPECTION - Eye Exam Eye Exam: PERRL - ENT Exam ENT Exam: Normal Exam - Neck Exam Neck Exam: Normal Inspection - Respiratory Exam Respiratory Exam: Decreased Breath Sounds (at bases), Rhonchi (scattered), Wheezes (scattered) - Cardiovascular Exam Cardiovascular Exam: REGULAR RHYTHM - GI/Abdominal Exam GI & Abdominal Exam: Soft, Normal Bowel Sounds - Extremities Exam Additional comments: Edema BLE - Neurological Exam Neurological Exam: Alert, Oriented x3 - Psychiatric Exam Psychiatric exam: Normal Mood - Skin Skin Exam: Warm Assessment and Plan (1) Pneumonia Status: Acute (2) COPD exacerbation Status: Acute - Assessment and Plan (Free Text) Plan: F/U Chest CT today, continue Merren, Duoneb, Solu-Medrol and rest of Tx.
--- NOTE | 2018-01-29 14:39 | RAD ---
Date of service: 01/29/2018 HISTORY: f/u COMPARISON: Chest radiograph dated 01/24/2018. TECHNIQUE: Chest PA and lateral FINDINGS: LUNGS: Pulmonary vascular congestion. Bibasilar atelectasis. Diffuse hazy change involving the left hemithorax. Persistent consolidation at the left lung base. PLEURA: Bilateral pleural effusions. CARDIOVASCULAR: Aortic atherosclerotic calcifications. Cardiomediastinal silhouette stably enlarged. OSSEOUS STRUCTURES: Unchanged. VISUALIZED UPPER ABDOMEN: Normal. OTHER FINDINGS: Right upper extremity PICC with catheter tip at the cavoatrial junction. Right internal jugular access non tunneled hemodialysis catheter IMPRESSION: Right upper extremity PICC and non tunneled hemodialysis catheter is in satisfactory position. Diffuse pulmonary vascular congestion and small bilateral pleural effusions. Persistent consolidation at the left lung base.
--- NOTE | 2018-01-29 16:47 | CT ---
Date of service: 01/29/2018 PROCEDURE: CT Chest without contrast HISTORY: f/u pna COMPARISON: CT chest dated 01/25/2018 TECHNIQUE: Contiguous axial images were obtained through the chest without intravenous contrast enhancement. Sagittal and coronal reconstructions were performed. Radiation dose: Total exam DLP = 521.91 mGy-cm. This CT exam was performed using one or more of the following dose reduction techniques: Automated exposure control, adjustment of the mA and/or kV according to patient size, and/or use of iterative reconstruction technique. FINDINGS: LUNGS: New complete atelectasis of the entire left upper lobe. Persistent patchy mosaic attenuation densities in the left lower lobe, right upper lobe and right lower lobe. Resolution of left lower lobe airspace consolidation. Visualized airway clear MEDIASTINUM: Partially imaged right internal jugular access hemodialysis catheter. Partially imaged right upper extremity PICC stable mild ascending aortic aneurysm measuring up to 4.2 cm. Aortic atherosclerotic calcifications. Cardiomegaly. Coronary arterial and valvular calcifications. Main pulmonary artery unremarkable. No vascular congestion. No lymphadenopathy. PLEURA: Small left pleural effusion. No pneumothorax. BONES: No fracture. Spinal degenerative changes. No destructive lesion. UPPER ABDOMEN: Cholelithiasis within a distended gallbladder.. OTHER FINDINGS: None. IMPRESSION: New complete left upper lobe atelectasis. Resolution of left lower lobe airspace consolidation. Persistent patchy mosaic attenuation ground-glass densities in the left lower, right upper and right lower lobes. Cholelithiasis within a distended gallbladder. No other significant interval changes.
[2018-01-29] MEDS: Pravastatin Sodium 40 MG TAB PO SCH (22:28)
[2018-01-30] MEDS: MethylPREDNISolone 40 mg Vial IVP SCH ×3 (00:43→17:03)
[2018-01-30] MEDS: Albuterol-Ipratrop 3 mg / 0.5 (3 ml) UD INH SCH ×6 (04:14→23:51)
[2018-01-30 07:11] LABS: HEMOGLOBIN 9.9 g/dL (12.0-16.0); MEAN CELL VOLUME 89.2 fl (81.0-99.0); MEAN CORPUSCULAR HEMOGLOBIN 28.9 pg (27.0-31.0); MEAN CORPUSCULAR HGB CONC 32.4 g/dL (33.0-37.0); RBC 3.43 Mil/uL (3.80-5.20); RED CELL DISTRIBUTION WIDTH 14.7 % (11.5-14.5)
[2018-01-30 07:20] LABS: CALCIUM 8.4 mg/dL (8.4-10.2)
--- NOTE | 2018-01-30 10:47 | CP.PCM.PN ---
Subjective - Date & Time of Evaluation Date of Evaluation: 01/30/18 Time of Evaluation: 10:46 - Subjective Subjective: pt was seen and examined during hd, uf goal is about 2300 ml, still c/o sob, no cp, Objective - Vital Signs/Intake and Output Vital Signs (last 24 hours): Temp Pulse Resp BP Pulse Ox 97.7 F 96 H 20 163/78 H 94 L 01/30/18 08:31 01/30/18 08:31 01/30/18 08:31 01/30/18 08:31 01/30/18 08:31 - Medications Medications: Current Medications Acetaminophen (Tylenol 325mg Tab) 650 mg PO Q6 PRN PRN Reason: Pain, Mild (1-3) Last Admin: 01/27/18 21:43 Dose: 650 mg Albuterol/Ipratropium (Duoneb 3 Mg/0.5 Mg (3 Ml) Ud) 3 ml INH RQ4 [facility] Last Admin: 01/30/18 08:03 Dose: 3 ml Amlodipine Besylate (Norvasc) 10 mg PO DAILY [facility] Last Admin: 01/29/18 09:22 Dose: 10 mg Aspirin (Ecotrin) 81 mg PO DAILY [facility] Last Admin: 01/20/18 09:22 Dose: 81 mg Bisoprolol Fumarate (Zebeta) 5 mg PO DAILY [facility] Last Admin: 01/29/18 09:25 Dose: 5 mg Cholecalciferol (Vitamin D) 1,000 intlu PO DAILY [facility] Last Admin: 01/29/18 09:24 Dose: 1,000 intlu Famotidine (Pepcid) 40 mg PO HS [facility] Last Admin: 01/29/18 22:28 Dose: 40 mg Ferrous Gluconate (Fergon) 324 mg PO DAILY [facility] Last Admin: 01/29/18 09:18 Dose: 324 mg Furosemide (Lasix) 40 mg PO DAILY [facility] Last Admin: 01/21/18 09:34 Dose: Not Given Glipizide (Glucotrol) 10 mg PO DAILY [facility] Last Admin: 01/29/18 09:19 Dose: 10 mg Meropenem 500 mg/ Sodium (Chloride) 100 mls @ 100 mls/hr IVPB Q24H [facility]; Protocol Last Admin: 01/29/18 09:20 Dose: 100 mls/hr Fluconazole (Diflucan Iv 100 Mg/50 Ml Ns) 50 mls @ 50 mls/hr IVPB DAILY [facility]; Protocol Last Admin: 01/29/18 09:18 Dose: 50 mls/hr Insulin Human Lispro (Humalog) 0 units SC ACHS [facility]; Protocol Last Admin: 01/29/18 22:27 Dose: Not Given Isosorbide Mononitrate (Imdur Er) 30 mg PO DAILY [facility] Last Admin: 01/29/18 09:19 Dose: 30 mg Lidocaine (Lidoderm) 1 ea TD DAILY [facility] Last Admin: 01/29/18 09:20 Dose: 1 ea Losartan Potassium (Cozaar) 50 mg PO DAILY [facility] Last Admin: 01/20/18 09:26 Dose: 50 mg Methylprednisolone (Solu-Medrol) 10 mg IVP Q8 [facility] Oxycodone/Acetaminophen (Percocet 5/325 Mg Tab) 1 tab PO Q8 PRN PRN Reason: Pain, moderate (4-7) Stop: 01/31/18 02:16 Pantoprazole Sodium (Protonix Ec Tab) 40 mg PO DAILY [facility] Last Admin: 01/29/18 09:23 Dose: 40 mg Pravastatin Sodium (Pravachol) 40 mg PO HS [facility] Last Admin: 01/29/18 22:28 Dose: 40 mg Sitagliptin Phosphate (Januvia) 100 mg PO DAILY [facility] Last Admin: 01/29/18 09:19 Dose: 100 mg Sucralfate (Carafate Tab) 1 gm PO BID [facility] Last Admin: 01/29/18 17:41 Dose: 1 gm - Labs Labs: 01/30/18 06:07 01/30/18 06:07 PT 11.0 Seconds (9.8-13.1) 01/19/18 23:03 INR 1.0 01/19/18 23:03 APTT 27.2 Seconds (25.6-37.1) 01/19/18 23:03 - Constitutional Appears: Well, Non-toxic, No Acute Distress - Head Exam Head Exam: ATRAUMATIC, NORMAL INSPECTION, NORMOCEPHALIC - Eye Exam Eye Exam: EOMI, Normal appearance, PERRL Pupil Exam: NORMAL ACCOMODATION - ENT Exam ENT Exam: Mucous Membranes Moist - Neck Exam Neck Exam: Full ROM - Respiratory Exam Respiratory Exam: Rales, NORMAL BREATHING PATTERN - Cardiovascular Exam Cardiovascular Exam: REGULAR RHYTHM, +S1, +S2 - Rectal Exam Rectal Exam: Deferred - Extremities Exam Additional comments: no edema - Neurological Exam Neurological Exam: Alert, Awake, CN II-XII Intact, Oriented x3 - Psychiatric Exam Psychiatric exam: Normal Affect, Normal Mood - Skin Skin Exam: Intact, Normal Color, Warm Assessment and Plan - Assessment and Plan (Free Text) Assessment: 78 yo HF with pmh/o htn, dm hld, chf, copd, ? spinal stenosis, ckd with sob, being treated for mycoplasma pneumonia with b/l infiltrates 1. Luís on ckd-3 2. htn 3. Mycoplasma pneumonia 4. DM for hd today b/l pneumonia, ? white out on left side follow up pulmonary , chest physical therapy, may need bronch c/w IV ABx
[2018-01-30] MEDS: Insulin Lispro (humaLOG) 100 Units/ml Inj SC SCH ×4 (10:56→22:08)
[2018-01-30] MEDS: Lidocaine 5% Patch TD SCH ×2 (11:03→13:37)
[2018-01-30] MEDS: Pantoprazole 40 mg EC Tab PO SCH (11:03)
--- NOTE | 2018-01-30 11:07 | PN ---
DATE: 01/30/2018 SUBJECTIVE: The patient is seen and examined. Interim events noted. The patient remains in progressive care unit on telemetry monitoring. The patient feels much better, much more awake, responsive, overall brought back to her usual status mentally. No chest pain. No shortness of breath. The patient does not even use oxygen and was comfortable on room air. PHYSICAL EXAMINATION: GENERAL: The patient is in no acute distress. VITAL SIGNS: Stable. HEART: S1, S2, normal and regular. LUNGS: Good bilateral air exchange. ABDOMEN: Soft, nontender. EXTREMITIES: No edema. No calf swelling. No tenderness. No acute ischemia. CENTRAL NERVOUS SYSTEM: Essentially unchanged. DIAGNOSTIC DATA: Available diagnostic data reviewed. CAT scan of chest shows resolving left lower lobe infiltrate, but new right upper lobe atelectasis. Telemetry monitoring does not show significant arrhythmias. WBC remains elevated at 14.5. ASSESSMENT AND PLAN: Overall, the patient is slowly improving; clinically much improved. Plan as ordered. Case and plan discussed with the patient. Manpreet Austin MD
[2018-01-30] MEDS: Fluconazole IV 100mg/50 ml NS 50 ML IVPB SCH (13:32)
--- NOTE | 2018-01-30 13:32 | PQF ---
PROVIDER RESPONSE TEXT: Mycoplasma Pneumonia REVIEWER QUERY TEXT: Pneumonia Specificity Pneumonia is documented in the Medical Record. Please specify the type of pneumonia and the causative organism (includes probable or suspected) Such as: Type: -- Aspiration pneumonia (please also specify the aspirate) -- Bacterial (please document suspected or probable organism) -- Bronchopneumonia (please document suspected or probable organism) -- Interstitial pneumonia -- Organizing pneumonia / BOOP -- Pneumonia with influenza, tanja flu, or H1N1 flu -- RSV -- Tuberculosis, pulmonary -- Viral -- Other, please specify The patient's Clinical Indicators include: Transferred from TCU to the ER with s/o SOB. Being treated for pneumonia. WBC elevated, afebrile. CXR: Mild pulmonary venous congestive changes with what appear to represent bilateral lower lobe inf iltrates and bilateral effusions.. CT Chest: 1. Interval multifocal pneumonia identified with likely limited bilateral dependent/compre ssive atelectasis at the lower lobes. 2. Mild right and minimal left pleural effusions are identified . No pericardial effusion. Mycoplasma pneumonia Ig M +, Sputum CS: Yeast species Rx: Avelox, Merrem Query created by: Zora Handy on 01/24/2018 10:35 AM Electronically signed by: Ziyad Farah MD 01/30/2018 1:28 PM
[2018-01-30] MEDS: Meropenem 500 MG in Sodium Chloride 0.9% 100 ML IVPB SCH (13:37)
--- NOTE | 2018-01-30 13:37 | CP.PCM.PN ---
Subjective - Date & Time of Evaluation Date of Evaluation: 01/30/18 Time of Evaluation: 08:00 - Subjective Subjective: events noted + white out on CXR left side HD in prrogress no new cultures Pulm follow up pending IV rx in progress Objective - Vital Signs/Intake and Output Vital Signs (last 24 hours): Temp Pulse Resp BP Pulse Ox 98.2 F 85 20 128/64 95 01/30/18 12:33 01/30/18 12:33 01/30/18 12:33 01/30/18 12:33 01/30/18 12:33 - Medications Medications: Current Medications Acetaminophen (Tylenol 325mg Tab) 650 mg PO Q6 PRN PRN Reason: Pain, Mild (1-3) Last Admin: 01/27/18 21:43 Dose: 650 mg Albuterol/Ipratropium (Duoneb 3 Mg/0.5 Mg (3 Ml) Ud) 3 ml INH RQ4 [facility] Last Admin: 01/30/18 11:01 Dose: 3 ml Amlodipine Besylate (Norvasc) 10 mg PO DAILY [facility] Last Admin: 01/30/18 11:03 Dose: Not Given Aspirin (Ecotrin) 81 mg PO DAILY [facility] Last Admin: 01/20/18 09:22 Dose: 81 mg Bisoprolol Fumarate (Zebeta) 5 mg PO DAILY [facility] Last Admin: 01/30/18 11:04 Dose: Not Given Cholecalciferol (Vitamin D) 1,000 intlu PO DAILY [facility] Last Admin: 01/29/18 09:24 Dose: 1,000 intlu Famotidine (Pepcid) 40 mg PO HS [facility] Last Admin: 01/29/18 22:28 Dose: 40 mg Ferrous Gluconate (Fergon) 324 mg PO DAILY [facility] Last Admin: 01/29/18 09:18 Dose: 324 mg Furosemide (Lasix) 40 mg PO DAILY [facility] Last Admin: 01/21/18 09:34 Dose: Not Given Glipizide (Glucotrol) 10 mg PO DAILY [facility] Last Admin: 01/29/18 09:19 Dose: 10 mg Meropenem 500 mg/ Sodium (Chloride) 100 mls @ 100 mls/hr IVPB Q24H [facility]; Protocol Last Admin: 01/29/18 09:20 Dose: 100 mls/hr Fluconazole (Diflucan Iv 100 Mg/50 Ml Ns) 50 mls @ 50 mls/hr IVPB DAILY [facility]; Protocol Last Admin: 01/29/18 09:18 Dose: 50 mls/hr Insulin Human Lispro (Humalog) 0 units SC ACHS [facility]; Protocol Last Admin: 01/30/18 10:56 Dose: Not Given Isosorbide Mononitrate (Imdur Er) 30 mg PO DAILY [facility] Last Admin: 01/29/18 09:19 Dose: 30 mg Lidocaine (Lidoderm) 1 ea TD DAILY [facility] Last Admin: 01/30/18 11:03 Dose: Not Given Losartan Potassium (Cozaar) 50 mg PO DAILY [facility] Last Admin: 01/20/18 09:26 Dose: 50 mg Methylprednisolone (Solu-Medrol) 10 mg IVP Q8 [facility] Oxycodone/Acetaminophen (Percocet 5/325 Mg Tab) 1 tab PO Q8 PRN PRN Reason: Pain, moderate (4-7) Stop: 01/31/18 02:16 Pantoprazole Sodium (Protonix Ec Tab) 40 mg PO DAILY [facility] Last Admin: 01/30/18 11:03 Dose: Not Given Pravastatin Sodium (Pravachol) 40 mg PO HS [facility] Last Admin: 01/29/18 22:28 Dose: 40 mg Sitagliptin Phosphate (Januvia) 100 mg PO DAILY [facility] Last Admin: 01/29/18 09:19 Dose: 100 mg Sucralfate (Carafate Tab) 1 gm PO BID [facility] Last Admin: 01/30/18 10:56 Dose: Not Given - Labs Labs: 01/30/18 06:07 01/30/18 06:07 PT 11.0 Seconds (9.8-13.1) 01/19/18 23:03 INR 1.0 01/19/18 23:03 APTT 27.2 Seconds (25.6-37.1) 01/19/18 23:03 - Constitutional Appears: Confused, Cachectic, Chronically Ill - Head Exam Head Exam: NORMOCEPHALIC - Eye Exam Eye Exam: absent: Scleral icterus - ENT Exam ENT Exam: Mucous Membranes Dry - Neck Exam Neck Exam: absent: Lymphadenopathy - Respiratory Exam Respiratory Exam: Decreased Breath Sounds - Cardiovascular Exam Cardiovascular Exam: REGULAR RHYTHM - GI/Abdominal Exam GI & Abdominal Exam: Distended, Soft - Rectal Exam Rectal Exam: Deferred - Exam Exam: NORMAL INSPECTION - Extremities Exam Extremities Exam: absent: Pedal Edema - Back Exam Back Exam: absent: CVA tenderness (L), CVA tenderness (R) Assessment and Plan (1) Pneumonia Status: Acute (2) COPD (chronic obstructive pulmonary disease) Status: Chronic - Assessment and Plan (Free Text) Assessment: cont iv rx as ordered will reculture
[2018-01-30] MEDS ORDERED: Sodium Chloride 3% for Inhalation 4 ML VIAL.NEB IH PRN (13:39)
[2018-01-30] MEDS: Cholecalciferol 1,000 INTLU TAB PO SCH ×2 (13:40→15:11)
[2018-01-30] MEDS: Oxycodone/Acetaminophen 5/325 mg Tab PO PRN (13:56)
--- NOTE | 2018-01-30 14:35 | CP.PCM.PN ---
Subjective - Date & Time of Evaluation Date of Evaluation: 01/30/18 - Subjective Subjective: F/U PNA. Cough with scant amount of white-yellowish phlegms, on hifgh flow O2, c/o of SOB, chest congestion. Objective - Vital Signs/Intake and Output Vital Signs (last 24 hours): Temp Pulse Resp BP Pulse Ox 98.2 F 90 20 114/90 95 01/30/18 12:33 01/30/18 13:43 01/30/18 12:33 01/30/18 13:43 01/30/18 12:33 - Medications Medications: Current Medications Acetaminophen (Tylenol 325mg Tab) 650 mg PO Q6 PRN PRN Reason: Pain, Mild (1-3) Last Admin: 01/27/18 21:43 Dose: 650 mg Albuterol/Ipratropium (Duoneb 3 Mg/0.5 Mg (3 Ml) Ud) 3 ml INH RQ4 [facility] Last Admin: 01/30/18 11:01 Dose: 3 ml Amlodipine Besylate (Norvasc) 10 mg PO DAILY [facility] Last Admin: 01/30/18 13:43 Dose: 10 mg Aspirin (Ecotrin) 81 mg PO DAILY [facility] Last Admin: 01/20/18 09:22 Dose: 81 mg Bisoprolol Fumarate (Zebeta) 5 mg PO DAILY [facility] Last Admin: 01/29/18 09:25 Dose: 5 mg Cholecalciferol (Vitamin D) 1,000 intlu PO DAILY [facility] Last Admin: 01/29/18 09:24 Dose: 1,000 intlu Famotidine (Pepcid) 40 mg PO HS [facility] Last Admin: 01/29/18 22:28 Dose: 40 mg Ferrous Gluconate (Fergon) 324 mg PO DAILY [facility] Last Admin: 01/30/18 13:33 Dose: 324 mg Furosemide (Lasix) 40 mg PO DAILY [facility] Last Admin: 01/21/18 09:34 Dose: Not Given Glipizide (Glucotrol) 10 mg PO DAILY [facility] Last Admin: 01/30/18 13:34 Dose: 10 mg Meropenem 500 mg/ Sodium (Chloride) 100 mls @ 100 mls/hr IVPB Q24H [facility]; Protocol Last Admin: 01/30/18 13:37 Dose: 100 mls/hr Fluconazole (Diflucan Iv 100 Mg/50 Ml Ns) 50 mls @ 50 mls/hr IVPB DAILY [facility]; Protocol Last Admin: 01/30/18 13:32 Dose: 50 mls/hr Insulin Human Lispro (Humalog) 0 units SC ACHS [facility]; Protocol Last Admin: 01/30/18 13:11 Dose: Not Given Isosorbide Mononitrate (Imdur Er) 30 mg PO DAILY [facility] Last Admin: 01/30/18 13:35 Dose: 30 mg Lidocaine (Lidoderm) 1 ea TD DAILY [facility] Last Admin: 01/30/18 13:37 Dose: 1 ea Losartan Potassium (Cozaar) 50 mg PO DAILY [facility] Last Admin: 01/20/18 09:26 Dose: 50 mg Methylprednisolone (Solu-Medrol) 10 mg IVP Q8 [facility] Oxycodone/Acetaminophen (Percocet 5/325 Mg Tab) 1 tab PO Q8 PRN PRN Reason: Pain, moderate (4-7) Stop: 01/31/18 02:16 Last Admin: 01/30/18 13:56 Dose: 1 tab Pantoprazole Sodium (Protonix Ec Tab) 40 mg PO DAILY [facility] Last Admin: 01/30/18 11:03 Dose: Not Given Pravastatin Sodium (Pravachol) 40 mg PO HS [facility] Last Admin: 01/29/18 22:28 Dose: 40 mg Sitagliptin Phosphate (Januvia) 100 mg PO DAILY [facility] Last Admin: 01/30/18 13:35 Dose: 100 mg Sucralfate (Carafate Tab) 1 gm PO BID [facility] Last Admin: 01/30/18 10:56 Dose: Not Given - Labs Labs: 01/30/18 06:07 01/30/18 06:07 PT 11.0 Seconds (9.8-13.1) 01/19/18 23:03 INR 1.0 01/19/18 23:03 APTT 27.2 Seconds (25.6-37.1) 01/19/18 23:03 - Constitutional Appears: No Acute Distress - Head Exam Head Exam: NORMAL INSPECTION - Eye Exam Eye Exam: PERRL - ENT Exam ENT Exam: Normal Exam - Neck Exam Neck Exam: Normal Inspection - Respiratory Exam Respiratory Exam: Decreased Breath Sounds (b/l), Rhonchi (scattered), Wheezes - Cardiovascular Exam Cardiovascular Exam: REGULAR RHYTHM - GI/Abdominal Exam GI & Abdominal Exam: Soft, Normal Bowel Sounds - Extremities Exam Additional comments: Edema BLE - Neurological Exam Neurological Exam: Alert, Oriented x3 Additional comments: At times forgetful. - Psychiatric Exam Psychiatric exam: Normal Mood - Skin Skin Exam: Warm Assessment and Plan (1) Pneumonia Status: Acute (2) COPD exacerbation Status: Acute - Assessment and Plan (Free Text) Plan: CT Chest shows: New complete ALEJA atelectasis, resolution of LLL PNA. Persistent patchy mosaic attenuation densities in the LLL, RUL and RLL. Pt still with high flow O2, unable to decreased to NC, will do Bronchoscopy in AM. Pt will require intubation for the procedure. Cardiology clearance.
[2018-01-30] MEDS: Pravastatin Sodium 40 MG TAB PO SCH (22:10)
[2018-01-31] MEDS: MethylPREDNISolone 40 mg Vial IVP SCH ×3 (01:55→16:38)
[2018-01-31] MEDS: Oxycodone/Acetaminophen 5/325 mg Tab PO PRN (01:56)
[2018-01-31] MEDS: Albuterol-Ipratrop 3 mg / 0.5 (3 ml) UD INH SCH ×5 (05:09→19:44)
[2018-01-31] MEDS: Insulin Lispro (humaLOG) 100 Units/ml Inj SC SCH ×4 (06:31→21:23)
[2018-01-31 06:49] LABS: HEMOGLOBIN 10.5 g/dL (12.0-16.0); MEAN CELL VOLUME 90.4 fl (81.0-99.0); MEAN CORPUSCULAR HEMOGLOBIN 28.6 pg (27.0-31.0); MEAN CORPUSCULAR HGB CONC 31.6 g/dL (33.0-37.0); RBC 3.66 Mil/uL (3.80-5.20); RED CELL DISTRIBUTION WIDTH 15.1 % (11.5-14.5); WHITE BLOOD COUNT 16.9 K/uL (4.8-10.8)
[2018-01-31 07:01] LABS: CALCIUM 8.3 mg/dL (8.4-10.2)
--- NOTE | 2018-01-31 07:29 | CP.PCM.PN ---
<Jorge Del Toro - Last Filed: 01/31/18 17:52> Subjective - Date & Time of Evaluation Date of Evaluation: 01/31/18 Time of Evaluation: 06:30 - Subjective Subjective: 78 y/o F was seen and examined by bedside with Dr Austin. Pt was unresponsive, did not answer questions, did not respond to chest stimulation or leg stimulation. N faustino reports pt was able to answer question last night and complained of mild abdominal pain. Pt afebrile overnight. Objective - Vital Signs/Intake and Output Vital Signs (last 24 hours): Temp Pulse Resp BP Pulse Ox 97.3 F L 88 16 170/82 H 94 L 01/31/18 05:22 01/31/18 05:22 01/31/18 07:09 01/31/18 05:22 01/31/18 05:22 - Medications Medications: Current Medications Acetaminophen (Tylenol 325mg Tab) 650 mg PO Q6 PRN PRN Reason: Pain, Mild (1-3) Last Admin: 01/27/18 21:43 Dose: 650 mg Albuterol/Ipratropium (Duoneb 3 Mg/0.5 Mg (3 Ml) Ud) 3 ml INH RQ4 [facility] Last Admin: 01/31/18 05:09 Dose: 3 ml Amlodipine Besylate (Norvasc) 10 mg PO DAILY [facility] Last Admin: 01/30/18 16:09 Dose: Not Given Aspirin (Ecotrin) 81 mg PO DAILY [facility] Last Admin: 01/20/18 09:22 Dose: 81 mg Bisoprolol Fumarate (Zebeta) 10 mg PO DAILY [facility] Cholecalciferol (Vitamin D) 1,000 intlu PO DAILY [facility] Last Admin: 01/30/18 15:11 Dose: Not Given Famotidine (Pepcid) 40 mg PO HS [facility] Last Admin: 01/30/18 22:10 Dose: 40 mg Ferrous Gluconate (Fergon) 324 mg PO DAILY [facility] Last Admin: 01/30/18 15:43 Dose: Not Given Furosemide (Lasix) 40 mg PO DAILY [facility] Last Admin: 01/21/18 09:34 Dose: Not Given Glipizide (Glucotrol) 10 mg PO DAILY [facility] Last Admin: 01/30/18 15:53 Dose: Not Given Meropenem 500 mg/ Sodium (Chloride) 100 mls @ 100 mls/hr IVPB Q24H [facility]; Protocol Last Admin: 01/30/18 13:37 Dose: 100 mls/hr Fluconazole (Diflucan Iv 100 Mg/50 Ml Ns) 50 mls @ 50 mls/hr IVPB DAILY [facility]; Protocol Last Admin: 01/30/18 13:32 Dose: 50 mls/hr Insulin Human Lispro (Humalog) 0 units SC ACHS [facility]; Protocol Last Admin: 01/31/18 06:31 Dose: 3 units Isosorbide Mononitrate (Imdur Er) 30 mg PO DAILY [facility] Last Admin: 01/30/18 16:09 Dose: Not Given Lidocaine (Lidoderm) 1 ea TD DAILY [facility] Last Admin: 01/30/18 13:37 Dose: 1 ea Methylprednisolone (Solu-Medrol) 10 mg IVP Q8 [facility] Last Admin: 01/31/18 01:55 Dose: 10 mg Pantoprazole Sodium (Protonix Ec Tab) 40 mg PO DAILY [facility] Last Admin: 01/30/18 11:03 Dose: Not Given Pravastatin Sodium (Pravachol) 40 mg PO HS [facility] Last Admin: 01/30/18 22:10 Dose: 40 mg Sitagliptin Phosphate (Januvia) 100 mg PO DAILY [facility] Last Admin: 01/30/18 16:09 Dose: Not Given Sucralfate (Carafate Tab) 1 gm PO BID [facility] Last Admin: 01/30/18 17:15 Dose: 1 gm - Labs Labs: 01/31/18 06:30 01/31/18 06:30 PT 11.0 Seconds (9.8-13.1) 01/19/18 23:03 INR 1.0 01/19/18 23:03 APTT 27.2 Seconds (25.6-37.1) 01/19/18 23:03 - Constitutional Appears: Chronically Ill - Head Exam Head Exam: ATRAUMATIC, NORMAL INSPECTION - Eye Exam Eye Exam: absent: EOMI - ENT Exam ENT Exam: Mucous Membranes Dry - Respiratory Exam Respiratory Exam: Decreased Breath Sounds, Rhonchi, NORMAL BREATHING PATTERN. absent: Respiratory Distress - Cardiovascular Exam Cardiovascular Exam: REGULAR RHYTHM, +S1, +S2 - GI/Abdominal Exam GI & Abdominal Exam: Soft. absent: Guarding, Rigid, Tenderness - Neurological Exam Neurological Exam: Altered Assessment and Plan - Assessment and Plan (Free Text) Assessment: 77 y/o female patient admitted due to pneumonia, positive Mycoplasma serum IgM, sputum cx positive for yeasts, admission complicated with CAMPBELL on HD, with altered mental status today. PLAN: --Stat, CT of head without contrast. --CBC, CMP and ABG --WBC still elevated, on prednisone. --Continue on Meropenem and Fluconazole IV treatments. --Due to elevated BP, Bisoprostol was increased to 10mg daily. --GI consulted, input appreciated --ID on board, input appreciated --Pulmonology on board, input appreciated --Nephro consulted, input appreciated --continue rest of plan as ordered Case discussed with Dr Austin. <Manpreet Austin - Last Filed: 02/01/18 15:50> Objective - Vital Signs/Intake and Output Vital Signs (last 24 hours): Temp Pulse Resp BP Pulse Ox 98.2 F 79 22 132/75 100 02/01/18 12:00 02/01/18 14:00 02/01/18 15:35 02/01/18 14:00 02/01/18 14:00 Intake and Output: 02/01/18 02/01/18 11:59 23:59 Output Total 200 Balance -200 - Medications Medications: Current Medications Acetaminophen (Tylenol 325mg Tab) 650 mg PO Q6 PRN PRN Reason: Pain, Mild (1-3) Albuterol/Ipratropium (Duoneb 3 Mg/0.5 Mg (3 Ml) Ud) 3 ml INH RQ4 [facility] Last Admin: 02/01/18 15:34 Dose: 3 ml Amlodipine Besylate (Norvasc) 10 mg PO DAILY [facility] Last Admin: 02/01/18 08:37 Dose: 10 mg Bisoprolol Fumarate (Zebeta) 10 mg PO DAILY [facility] Last Admin: 02/01/18 08:35 Dose: 10 mg Cholecalciferol (Vitamin D) 1,000 intlu PO DAILY [facility] Last Admin: 02/01/18 08:36 Dose: 1,000 intlu Clotrimazole (Lotrimin 1% Cream) 1 applic TOP BID [facility] Famotidine (Pepcid) 40 mg PO HS [facility] Last Admin: 01/31/18 21:26 Dose: 40 mg Ferrous Gluconate (Fergon) 324 mg PO DAILY [facility] Last Admin: 02/01/18 09:58 Dose: 324 mg Furosemide (Lasix) 40 mg PO DAILY [facility] Last Admin: 02/01/18 08:35 Dose: 40 mg Glipizide (Glucotrol) 10 mg PO DAILY [facility] Last Admin: 02/01/18 08:38 Dose: 10 mg Fluconazole (Diflucan Iv 100 Mg/50 Ml Ns) 50 mls @ 50 mls/hr IVPB DAILY [facility]; Protocol Last Admin: 02/01/18 09:57 Dose: 50 mls/hr Meropenem 500 mg/ Sodium (Chloride) 100 mls @ 100 mls/hr IVPB Q24H [facility]; Protocol Last Admin: 02/01/18 15:16 Dose: 100 mls/hr Sodium Chloride (Sodium Chloride 0.45%) 1,000 mls @ 125 mls/hr IV .Q8H [facility] Stop: 02/02/18 08:46 Last Admin: 02/01/18 15:13 Dose: 125 mls/hr Insulin Human Lispro (Humalog) 0 units SC ACHS [facility]; Protocol Last Admin: 02/01/18 11:42 Dose: 4 u Isosorbide Mononitrate (Imdur Er) 30 mg PO DAILY [facility] Last Admin: 02/01/18 09:58 Dose: 30 mg Lidocaine (Lidoderm) 1 ea TD DAILY [facility] Last Admin: 02/01/18 08:38 Dose: 1 ea Methylprednisolone (Solu-Medrol) 10 mg IVP Q8 [facility] Last Admin: 02/01/18 08:39 Dose: 10 mg Pravastatin Sodium (Pravachol) 40 mg PO HS [facility] Last Admin: 01/31/18 21:27 Dose: 40 mg Sitagliptin Phosphate (Januvia) 100 mg PO DAILY [facility] Last Admin: 02/01/18 08:38 Dose: 100 mg Sucralfate (Carafate Tab) 1 gm PO BIDAC [facility] Last Admin: 02/01/18 08:35 Dose: 1 gm - Labs Labs: 02/01/18 04:20 02/01/18 04:20 PT 11.3 Seconds (9.8-13.1) 01/31/18 10:57 INR 1.0 01/31/18 10:57 APTT 21.6 Seconds (25.6-37.1) L 01/31/18 10:57 Assessment and Plan - Assessment and Plan (Free Text) Assessment: Patient was personally seen and examined by me in rounds with residents. Available labs and diagnostic data reviewed. Case, Patient's condition and management plan discussed with residents in rounds. Agree with resident's progress note. Plan: As ordered.
[2018-01-31 07:46] LABS: ABG ALLEN TEST YES; ARTERIAL BLOOD GAS HCO3 25.6 mmol/L (21-28); ARTERIAL BLOOD GAS HEMOGLOBIN 10.9 g/dL (11.7-17.4); ARTERIAL BLOOD GAS O2 CAPACITY 15.1 mL/dL (16-24); ARTERIAL BLOOD GAS O2 CONTENT 14.3 ML/dL (15-23); ARTERIAL BLOOD GAS O2 SAT 94.9 % (95-98); ARTERIAL BLOOD GAS PCO2 42 mm/Hg (35-45); ARTERIAL BLOOD GAS PO2 70 mm/Hg (80-100); ARTERIAL BLOOD GAS TCO2 27.3 mmol/L (22-28)
--- NOTE | 2018-01-31 09:13 | CT ---
Date of service: 01/31/2018 PROCEDURE: CT HEAD WITHOUT CONTRAST. HISTORY: lethargic COMPARISON: 01/24/2018. TECHNIQUE: Axial computed tomography images were obtained through the head/brain without intravenous contrast. Radiation dose: Total exam DLP = 791.98 mGy-cm. This CT exam was performed using one or more of the following dose reduction techniques: Automated exposure control, adjustment of the mA and/or kV according to patient size, and/or use of iterative reconstruction technique. FINDINGS: HEMORRHAGE: No intracranial hemorrhage. BRAIN: There are moderate chronic microangiopathic changes. There is cystic encephalomalacia in the right frontal lobe. There is no mass, mass effect or abnormal extra-axial fluid collection. There is no territorial infarction. The midline sagittal structures are normal. VENTRICLES: There is mild age-related global parenchymal volume loss and proportionate enlargement of the ventricles and cortical sulci. CALVARIUM: There is no calvarial fracture or extracranial soft tissue swelling. PARANASAL SINUSES: Predominantly clear. MASTOID AIR CELLS: Predominantly clear. OTHER FINDINGS: None. IMPRESSION: No acute intracranial abnormality. Moderate chronic microangiopathic changes and mild age-related global parenchymal volume loss. Cystic encephalomalacia in the right frontal lobe, sequela of remote insult.
[2018-01-31] MEDS ORDERED: Naloxone 0.4 mg/ml Inj (Adult) IVP STA ×2 (09:33→11:40)
--- NOTE | 2018-01-31 09:40 | CP.PCM.PN ---
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 s/p norcane, barely opens eyes , on high flow oxygen s/p hd yesterday, Objective - Vital Signs/Intake and Output Vital Signs (last 24 hours): Temp Pulse Resp BP Pulse Ox 98.1 F 99 H 20 136/58 L 95 01/31/18 08:20 01/31/18 08:20 01/31/18 08:20 01/31/18 08:20 01/31/18 08:20 - Medications Medications: Current Medications Acetaminophen (Tylenol 325mg Tab) 650 mg PO Q6 PRN PRN Reason: Pain, Mild (1-3) Last Admin: 01/27/18 21:43 Dose: 650 mg Albuterol/Ipratropium (Duoneb 3 Mg/0.5 Mg (3 Ml) Ud) 3 ml INH RQ4 [facility] Last Admin: 01/31/18 08:16 Dose: 3 ml Amlodipine Besylate (Norvasc) 10 mg PO DAILY [facility] Last Admin: 01/30/18 16:09 Dose: Not Given Aspirin (Ecotrin) 81 mg PO DAILY [facility] Last Admin: 01/20/18 09:22 Dose: 81 mg Bisoprolol Fumarate (Zebeta) 10 mg PO DAILY [facility] Cholecalciferol (Vitamin D) 1,000 intlu PO DAILY [facility] Last Admin: 01/30/18 15:11 Dose: Not Given Famotidine (Pepcid) 40 mg PO HS [facility] Last Admin: 01/30/18 22:10 Dose: 40 mg Ferrous Gluconate (Fergon) 324 mg PO DAILY [facility] Last Admin: 01/30/18 15:43 Dose: Not Given Furosemide (Lasix) 40 mg PO DAILY [facility] Last Admin: 01/21/18 09:34 Dose: Not Given Glipizide (Glucotrol) 10 mg PO DAILY [facility] Last Admin: 01/30/18 15:53 Dose: Not Given Meropenem 500 mg/ Sodium (Chloride) 100 mls @ 100 mls/hr IVPB Q24H [facility]; Protocol Last Admin: 01/30/18 13:37 Dose: 100 mls/hr Fluconazole (Diflucan Iv 100 Mg/50 Ml Ns) 50 mls @ 50 mls/hr IVPB DAILY [facility]; Protocol Last Admin: 01/30/18 13:32 Dose: 50 mls/hr Insulin Human Lispro (Humalog) 0 units SC ACHS [facility]; Protocol Last Admin: 01/31/18 06:31 Dose: 3 units Isosorbide Mononitrate (Imdur Er) 30 mg PO DAILY [facility] Last Admin: 01/30/18 16:09 Dose: Not Given Lidocaine (Lidoderm) 1 ea TD DAILY [facility] Last Admin: 01/30/18 13:37 Dose: 1 ea Methylprednisolone (Solu-Medrol) 10 mg IVP Q8 [facility] Last Admin: 01/31/18 01:55 Dose: 10 mg Pantoprazole Sodium (Protonix Ec Tab) 40 mg PO DAILY [facility] Last Admin: 01/30/18 11:03 Dose: Not Given Pravastatin Sodium (Pravachol) 40 mg PO HS [facility] Last Admin: 01/30/18 22:10 Dose: 40 mg Sitagliptin Phosphate (Januvia) 100 mg PO DAILY [facility] Last Admin: 01/30/18 16:09 Dose: Not Given Sucralfate (Carafate Tab) 1 gm PO BID [facility] Last Admin: 01/30/18 17:15 Dose: 1 gm - Labs Labs: 01/31/18 06:30 01/31/18 06:30 PT 11.0 Seconds (9.8-13.1) 01/19/18 23:03 INR 1.0 01/19/18 23:03 APTT 27.2 Seconds (25.6-37.1) 01/19/18 23:03 - Constitutional Appears: No Acute Distress, Confused, Other - Head Exam Head Exam: ATRAUMATIC, NORMOCEPHALIC - Eye Exam Eye Exam: EOMI, Normal appearance, PERRL Pupil Exam: NORMAL ACCOMODATION - ENT Exam ENT Exam: Mucous Membranes Moist - Neck Exam Neck Exam: Full ROM - Respiratory Exam Respiratory Exam: Rales Additional comments: decreased bs on left side - Cardiovascular Exam Cardiovascular Exam: REGULAR RHYTHM, +S1, +S2 - GI/Abdominal Exam GI & Abdominal Exam: Soft, Normal Bowel Sounds - Rectal Exam Rectal Exam: Deferred - Extremities Exam Extremities Exam: Normal Inspection Additional comments: no edema of legs - Neurological Exam Neurological Exam: Altered Additional comments: very drowsy, not following commands Assessment and Plan - Assessment and Plan (Free Text) Assessment: 78 yo HF with pmh/o htn, dm hld, chf, copd, ? 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 Luís on ckd-3 2. htn 3. Mycoplasma pneumonia 4. DM 5. AMS, s/p AUDIOVISUAL EQUIPMENT OPERATOR b/l pneumonia, ? white out on left side follow up pulmonary , chest physical therapy, c/w IV ABx as per ID, d/w CERAMIC DESIGNER in rounds consider icu evaluation for close monitoring
--- NOTE | 2018-01-31 09:40 | CP.PCM.PCO ---
Assessment & Plan - Assessment and Plan (Free Text) Assessment: patient found lethargic, only responds to deep tactile stimuli according to RN, pt. was lethargic this am, s/p CT head and Abg PLASTERING CONTRACTOR called, pt. was given Narcan 0.4 mg by team with minimal response Case D/w Dr. Brooks, pt. will be transferred to ICU and started on Narcan gtt notified, Bronchospy cancelled
--- NOTE | 2018-01-31 09:48 | CP.PCM.PN ---
Subjective - Date & Time of Evaluation Date of Evaluation: 01/31/18 Time of Evaluation: 09:46 - Subjective Subjective: not arousable Objective - Vital Signs/Intake and Output Vital Signs (last 24 hours): Temp Pulse Resp BP Pulse Ox 98.1 F 99 H 20 136/58 L 95 01/31/18 08:20 01/31/18 08:20 01/31/18 08:20 01/31/18 08:20 01/31/18 08:20 - Medications Medications: Current Medications Acetaminophen (Tylenol 325mg Tab) 650 mg PO Q6 PRN PRN Reason: Pain, Mild (1-3) Last Admin: 01/27/18 21:43 Dose: 650 mg Albuterol/Ipratropium (Duoneb 3 Mg/0.5 Mg (3 Ml) Ud) 3 ml INH RQ4 LUIZ Last Admin: 01/31/18 08:16 Dose: 3 ml Amlodipine Besylate (Norvasc) 10 mg PO DAILY [facility] Last Admin: 01/30/18 16:09 Dose: Not Given Aspirin (Ecotrin) 81 mg PO DAILY [facility] Last Admin: 01/20/18 09:22 Dose: 81 mg Bisoprolol Fumarate (Zebeta) 10 mg PO DAILY [facility] Cholecalciferol (Vitamin D) 1,000 intlu PO DAILY [facility] Last Admin: 01/30/18 15:11 Dose: Not Given Famotidine (Pepcid) 40 mg PO HS [facility] Last Admin: 01/30/18 22:10 Dose: 40 mg Ferrous Gluconate (Fergon) 324 mg PO DAILY [facility] Last Admin: 01/30/18 15:43 Dose: Not Given Furosemide (Lasix) 40 mg PO DAILY [facility] Last Admin: 01/21/18 09:34 Dose: Not Given Glipizide (Glucotrol) 10 mg PO DAILY [facility] Last Admin: 01/30/18 15:53 Dose: Not Given Meropenem 500 mg/ Sodium (Chloride) 100 mls @ 100 mls/hr IVPB Q24H [facility]; Protocol Last Admin: 01/30/18 13:37 Dose: 100 mls/hr Fluconazole (Diflucan Iv 100 Mg/50 Ml Ns) 50 mls @ 50 mls/hr IVPB DAILY [facility]; Protocol Last Admin: 01/30/18 13:32 Dose: 50 mls/hr Insulin Human Lispro (Humalog) 0 units SC ACHS [facility]; Protocol Last Admin: 01/31/18 06:31 Dose: 3 units Isosorbide Mononitrate (Imdur Er) 30 mg PO DAILY [facility] Last Admin: 01/30/18 16:09 Dose: Not Given Lidocaine (Lidoderm) 1 ea TD DAILY [facility] Last Admin: 01/30/18 13:37 Dose: 1 ea Methylprednisolone (Solu-Medrol) 10 mg IVP Q8 [facility] Last Admin: 01/31/18 01:55 Dose: 10 mg Pantoprazole Sodium (Protonix Ec Tab) 40 mg PO DAILY [facility] Last Admin: 01/30/18 11:03 Dose: Not Given Pravastatin Sodium (Pravachol) 40 mg PO HS [facility] Last Admin: 01/30/18 22:10 Dose: 40 mg Sitagliptin Phosphate (Januvia) 100 mg PO DAILY [facility] Last Admin: 01/30/18 16:09 Dose: Not Given Sucralfate (Carafate Tab) 1 gm PO BID [facility] Last Admin: 01/30/18 17:15 Dose: 1 gm - Labs Labs: 01/31/18 06:30 01/31/18 06:30 PT 11.0 Seconds (9.8-13.1) 01/19/18 23:03 INR 1.0 01/19/18 23:03 APTT 27.2 Seconds (25.6-37.1) 01/19/18 23:03 - Head Exam Head Exam: NORMOCEPHALIC - Neck Exam Neck Exam: Normal Inspection - Respiratory Exam Respiratory Exam: Respiratory Distress - GI/Abdominal Exam GI & Abdominal Exam: Soft, Normal Bowel Sounds Assessment and Plan - Assessment and Plan (Free Text) Assessment: 78 yo female with respiratory distress pulm input 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
[2018-01-31] MEDS: Lidocaine 5% Patch TD SCH (10:17)
[2018-01-31] MEDS: Meropenem 500 MG in Sodium Chloride 0.9% 100 ML IVPB SCH (10:17)
--- NOTE | 2018-01-31 10:45 | PCM.RRT ---
Addendum entered and electronically signed by Damir Jimenez MD 01/31/18 20:43: Patient was seen and evaluated bedside during SUEDING MACHINE OPERATOR. All chart and clinical data were reviewed. case discussed with residents. Agre with assessment and plan Narcan given to patient and she became responsive ABG noted Placed patient tapia on high flow Continue monitor in telemetry Avoid narcotics Continue management as per primary team Original Note: SUEDING MACHINE OPERATOR Nurse Assessment - Situation Location: [address] [place] [address] Room Number: 416 SUEDING MACHINE OPERATOR Reason for Call: Change in Mental Status SUEDING MACHINE OPERATOR Called By: RN - IV IV Inserted during SUEDING MACHINE OPERATOR?: No - Respiratory Oxygen Delivery Method: High-Flow Received Nebulizer Treatments: No Was the Patient Ventilated with Bag/Mask 100% O2?: No Secretions Suctioned?: No Was the Patient Intubated?: No Was the Patient Placed on a Ventilator?: No - Ventilator Settings FIO2 (% Oxygen): 40 - Medication Medications Administered During SUEDING MACHINE OPERATOR: Narcan .4mg - Diagnostic Test Ordered EKG: No Chest X-Ray: No CT Scan: No CPR started during SUEDING MACHINE OPERATOR?: No - Vital Signs Vital Signs: Rapid Response Vital Sign Blood Pressure 136/79 Pulse Rate 94 Respiratory Rate 20 Temperature 99.1 F Oxygen Saturation 94 - Time SUEDING MACHINE OPERATOR Ended Time SUEDING MACHINE OPERATOR Ended: 09:46 - Vital Signs at end of SUEDING MACHINE OPERATOR Vital Signs at end of SUEDING MACHINE OPERATOR: Rapid Response End Vital Sign Blood Pressure 141/70 Pulse Rate 99 Respiratory Rate 23 Temperature 99.3 F O2 Sat by Pulse Oximetry 100 - Recommendations SUEDING MACHINE OPERATOR Level of Care Recommendations: Remain in current setting I.Reason for SUEDING MACHINE OPERATOR - A) Acute Change in Patient: Subjective: 78 y/o Female admitted with diagnosis of PNA. SUEDING MACHINE OPERATOR was called after nurse found change in mental status, patient was lethargic and became suddenly unresponsive to chest and leg stimulation. RN reports patient received a dose of Percocet for pain in the evening. - Constitutional Appears: Confused - Head Head Exam: ATRAUMATIC, NORMOCEPHALIC - Eyes Eye Exam: PERRL - Respiratory Exam Respiratory Exam: Decreased Breath Sounds (bases). absent: Respiratory Distress - Cardiovascular Exam Cardiovascular Exam: RRR - GI/Abdominal Exam GI & Abdominal Exam: Soft, Normal Bowel Sounds. absent: Tenderness - Neurological Exam Neurological Exam: Altered Additional exam: Patient is uncooperative with neurological exam at this time. Plan - Assessment of Findings&Treatment Plan 78 Y/O Female admitted for mycoplasma PNA, complicated with CAMPBELL, With change in mental status this morning. Plan: - Narcan 0.4 IV given x 1 dose -High Flow oxygen given. -Attending MD notified, and pending further orders.
[2018-01-31] MEDS ORDERED: Naloxone 0.4 mg/ml Inj (Adult) IM STA (11:19)
[2018-01-31 11:20] LABS: PROTHROMBIN TIME 11.3 Seconds (9.8-13.1)
[2018-01-31 11:22] LABS: PARTIAL THROMBOPLASTIN TIME 21.6 Seconds (25.6-37.1)
[2018-01-31] MEDS ORDERED: Sodium Chloride 0.9% 1,000 ML IV SCH (11:45)
--- NOTE | 2018-01-31 11:46 | CP.PCM.CON ---
History of Present Illness - History of Present Illness History of Present Illness: I was asked to evaluate patient by Dr Farah and Dr Austin. Jane was seen 01/31/18924 Patient is a 78 year old female with HTN, CAD, hyperhcholesterolemia DM who presents with dyspnea. Ivan has been previouslyu admitted for dsypnea an pneumonia. The patient had elevated cardiac enzymes but no angina. The decision was made for medical therapy. She was transferred to TCU for abx. The patient had persistent cough and dyspnea. She was transferred to and planned for bronchoscopy. She appears lethargic. Of note she received percocet. Review of Systems - Review of Systems Systems not reviewed;Unavailable: Altered Mental Status Past Patient History - Past Medical History & Family History Past Medical History?: Yes - Past Social History Smoking Status: Never Smoked Alcohol: None Drugs: Denies Home Situation {Lives}: Alone - CARDIAC Hx Cardiac Disorders: Yes Hx Atrial Fibrillation: Yes Hx Cardia Arrhythmia: Yes Hx Congestive Heart Failure: Yes Hx Hypercholesterolemia: Yes Hx Hypertension: Yes Hx Peripheral Edema: Yes - PULMONARY Hx Respiratory Disorders: Yes Hx Asthma: No Hx Bronchitis: Yes Hx Chronic Obstructive Pulmonary Disease (COPD): Yes Hx Pneumonia: Yes - NEUROLOGICAL Hx Neurological Disorder: No - HEENT Hx HEENT Problems: Yes Hx Cataracts: Yes - RENAL Hx Chronic Kidney Disease: Yes - ENDOCRINE/METABOLIC Hx Endocrine Disorders: Yes Hx Diabetes Mellitus Type 2: Yes - HEMATOLOGICAL/ONCOLOGICAL Hx Blood Disorders: Yes Hx Anemia: Yes Hx Human Immunodeficiency Virus (HIV): No - INTEGUMENTARY Hx Dermatological Problems: No - MUSCULOSKELETAL/RHEUMATOLOGICAL Hx Musculoskeletal Disorders: Yes Hx Arthritis: Yes Hx Osteoporosis: Yes - GASTROINTESTINAL Hx Gall Bladder Disease: Yes Hx Gastritis: Yes - GENITOURINARY/GYNECOLOGICAL Hx Genitourinary Disorders: No - PSYCHIATRIC Hx Psychophysiologic Disorder: Yes Hx Anxiety: Yes Hx Depression: Yes - SURGICAL HISTORY Hx Surgeries: Yes Hx Cholecystectomy: Yes Hx Coronary Stent: Yes - ANESTHESIA Hx Anesthesia: Yes Hx Anesthesia Reactions: No Hx Malignant Hyperthermia: No Meds Allergies/Adverse Reactions: Allergies Allergy/AdvReac Type Severity Reaction Status Date / Time alprazolam [From Xanax] Allergy SWELLING Verified 01/14/18 15:19 hydromorphone HCl Allergy RASH Verified 01/14/18 15:19 [From Dilaudid] zolpidem tartrate Allergy RASH Verified 01/14/18 15:19 [From Xavi] - Medications Medications: Current Medications Acetaminophen (Tylenol 325mg Tab) 650 mg PO Q6 PRN PRN Reason: Pain, Mild (1-3) Last Admin: 01/27/18 21:43 Dose: 650 mg Albuterol/Ipratropium (Duoneb 3 Mg/0.5 Mg (3 Ml) Ud) 3 ml INH RQ4 [facility] Last Admin: 01/31/18 11:33 Dose: 3 ml Amlodipine Besylate (Norvasc) 10 mg PO DAILY [facility] Last Admin: 01/30/18 16:09 Dose: Not Given Aspirin (Ecotrin) 81 mg PO DAILY [facility] Last Admin: 01/20/18 09:22 Dose: 81 mg Bisoprolol Fumarate (Zebeta) 10 mg PO DAILY [facility] Cholecalciferol (Vitamin D) 1,000 intlu PO DAILY [facility] Last Admin: 01/30/18 15:11 Dose: Not Given Famotidine (Pepcid) 40 mg PO HS [facility] Last Admin: 01/30/18 22:10 Dose: 40 mg Ferrous Gluconate (Fergon) 324 mg PO DAILY [facility] Last Admin: 01/30/18 15:43 Dose: Not Given Furosemide (Lasix) 40 mg PO DAILY [facility] Last Admin: 01/21/18 09:34 Dose: Not Given Glipizide (Glucotrol) 10 mg PO DAILY [facility] Last Admin: 01/30/18 15:53 Dose: Not Given Meropenem 500 mg/ Sodium (Chloride) 100 mls @ 100 mls/hr IVPB Q24H [facility]; Protocol Last Admin: 01/31/18 10:17 Dose: 100 mls/hr Fluconazole (Diflucan Iv 100 Mg/50 Ml Ns) 50 mls @ 50 mls/hr IVPB DAILY [facility]; Protocol Last Admin: 01/30/18 13:32 Dose: 50 mls/hr Insulin Human Lispro (Humalog) 0 units SC ACHS [facility]; Protocol Last Admin: 01/31/18 06:31 Dose: 3 units Isosorbide Mononitrate (Imdur Er) 30 mg PO DAILY [facility] Last Admin: 01/30/18 16:09 Dose: Not Given Lidocaine (Lidoderm) 1 ea TD DAILY [facility] Last Admin: 01/31/18 10:17 Dose: Not Given Methylprednisolone (Solu-Medrol) 10 mg IVP Q8 [facility] Last Admin: 01/31/18 10:19 Dose: 10 mg Naloxone HCl (Narcan) 0.4 mg IVP STAT STA Stop: 01/31/18 11:41 Pantoprazole Sodium (Protonix Ec Tab) 40 mg PO DAILY [facility] Last Admin: 01/30/18 11:03 Dose: Not Given Pravastatin Sodium (Pravachol) 40 mg PO HS [facility] Last Admin: 01/30/18 22:10 Dose: 40 mg Sitagliptin Phosphate (Januvia) 100 mg PO DAILY [facility] Last Admin: 01/30/18 16:09 Dose: Not Given Sucralfate (Carafate Tab) 1 gm PO BID [facility] Last Admin: 01/30/18 17:15 Dose: 1 gm Physical Exam - Constitutional Appears: Non-toxic, Chronically Ill - Head Exam Head Exam: NORMAL INSPECTION - Eye Exam Eye Exam: Normal appearance - ENT Exam ENT Exam: Mucous Membranes Dry - Neck Exam Neck exam: Positive for: Full Rom, Normal Inspection. Negative for: Lymphadenopathy - Respiratory Exam Respiratory Exam: Decreased Breath Sounds - Cardiovascular Exam Cardiovascular Exam: REGULAR RHYTHM - GI/Abdominal Exam GI & Abdominal Exam: Normal Bowel Sounds - Rectal Exam Rectal Exam: Deferred - Extremities Exam Extremities exam: Negative for: pedal edema - Back Exam Back exam: NORMAL INSPECTION - Skin Skin Exam: Normal Color Results - Vital Signs Recent Vital Signs: Last Vital Signs Temp 98.1 F 01/31/18 08:20 Pulse 99 H 01/31/18 09:35 Resp 20 01/31/18 11:34 BP 136/67 01/31/18 09:35 Pulse Ox 99 01/31/18 09:35 - Labs Result Diagrams: 01/31/18 06:30 01/31/18 06:30 Labs: Laboratory Results - last 24 hr 01/30/18 01/30/18 01/31/18 16:14 21:21 05:23 WBC RBC Hgb Hct MCV MCH MCHC RDW Plt Count PT INR APTT pCO2 pO2 HCO3 ABG pH ABG Total CO2 ABG O2 Saturation ABG O2 Content ABG Base Excess ABG Hemoglobin ABG Carboxyhemoglobin POC ABG HHb (Measured) ABG Methemoglobin ABG O2 Capacity Rosales Test A-a O2 Difference Hgb O2 Saturation FiO2 Sodium Potassium Chloride Carbon Dioxide Anion Gap BUN Creatinine Est GFR ( Amer) Est GFR (Non-Af Amer) POC Glucose (mg/dL) 170 H 174 H 219 H Random Glucose Lactic Acid Calcium 01/31/18 01/31/18 01/31/18 06:30 06:30 07:40 WBC 16.9 H RBC 3.66 L Hgb 10.5 L Hct 33.1 L MCV 90.4 MCH 28.6 MCHC 31.6 L RDW 15.1 H Plt Count 252 PT INR APTT pCO2 42 pO2 70 L HCO3 25.6 ABG pH 7.40 ABG Total CO2 27.3 ABG O2 Saturation 94.9 L ABG O2 Content 14.3 L ABG Base Excess 1.0 ABG Hemoglobin 10.9 L ABG Carboxyhemoglobin 0.8 POC ABG HHb (Measured) 5.0 ABG Methemoglobin 1.3 ABG O2 Capacity 15.1 L Rosales Test Yes A-a O2 Difference 163.0 Hgb O2 Saturation 92.9 L FiO2 40.0 Sodium 136 Potassium 4.7 Chloride 101 Carbon Dioxide 25 Anion Gap 15 BUN 33 H Creatinine 1.6 H Est GFR ( Amer) 38 Est GFR (Non-Af Amer) 31 POC Glucose (mg/dL) Random Glucose 211 H Lactic Acid Calcium 8.3 L 01/31/18 01/31/18 01/31/18 09:24 10:57 10:57 WBC RBC Hgb Hct MCV MCH MCHC RDW Plt Count PT 11.3 INR 1.0 APTT 21.6 L pCO2 pO2 HCO3 ABG pH ABG Total CO2 ABG O2 Saturation ABG O2 Content ABG Base Excess ABG Hemoglobin ABG Carboxyhemoglobin POC ABG HHb (Measured) ABG Methemoglobin ABG O2 Capacity Rosales Test A-a O2 Difference Hgb O2 Saturation FiO2 Sodium Potassium Chloride Carbon Dioxide Anion Gap BUN Creatinine Est GFR ( Amer) Est GFR (Non-Af Amer) POC Glucose (mg/dL) 270 H Random Glucose Lactic Acid 0.7 Calcium - EKG Data EKG Interpreted by: Myself Assessment & Plan (1) Acute dyspnea Assessment and Plan: patinet is planned for bronchospy. CT scan reveiwed. This is a low risk procedure but likley cannot be done to lethargy. Status: Acute (2) Diabetes mellitus Assessment and Plan: follow glucose control Status: Chronic (3) Hypertension Assessment and Plan: blood pressure is controlled. Status: Chronic Priority: Medium
[2018-01-31] MEDS ORDERED: NALOXONE HCL IVPB ONE (11:55)
[2018-01-31] MEDS ORDERED: SODIUM CHLORIDE 0.9% IVPB ONE (11:55)
[2018-01-31] MEDS ORDERED: Sodium Chloride 0.45% 1,000 ML IV SCH (12:00)
[2018-01-31] MEDS: Fluconazole IV 100mg/50 ml NS 50 ML IVPB SCH (13:02)
--- NOTE | 2018-01-31 13:09 | CP.CCUPN ---
CCU Subjective - Physician Review Subjective (Free Text): 78F, PMH: DM II, LBP syndrome, recent pneumonia, transferred from TCU to approx. 10 days ago for treatment of pneumonia and closer monitoring. FOOD SERVICE COORDINATOR called today for AMS, STAT CT head does not show any new pathology, ABGs show no hypercarbia nor hypoxemia. PMD requested transfer to ICU for intubation and airway maintenance. She did receive one dose of 0.4mg Narcan during FOOD SERVICE COORDINATOR eval and responded with sudden wakefulness, but was not sustained. No chest retractions nor irregular /labored respirations noted. Meds records revealed she received 2 doses of Percocet, 12 H apart. No fevers overnight, temps mostly 97 -98F, normotensive, Spo2 97% on NC. HR 99, BP 130/80s. SPO2 94% on RA. Other vitals and I/O's reviewed. No polyuria noted. ROS: No other pertinent negs or positives on 10+ system review. Allergies: Alprazolam, Hydromorphone, Zolpidem. Home Meds: ASA, Zebeta, Vit D3, Ferrous Gluc, Lasix, Pravachol, Carafate, Norvasc, azithromycin, Ceftriaxone, Jardiance, Glipizide, Glucotrol, Imdur, Januvia, Losartan, protonix, Percocet q12H. PMSFH: All other Nursing and physician documentation reviewed to date; no new pertinent info noted relevant to current medical problems. EXAM- HEENT: no icterus, no gaze preference, Pupils 3 mm and reactive, unable to test for gag bites down on tongue depressor. NECK: No JVD visible, supple, carotids equal upstroke bilat/no bruit CHEST: decreased bi-basilar BS , no wheezes audible, R chest Dialysis catheter HEART: regular, distant S1S2, no rubs ABD: soft, no focal tenderness, no guarding, no organomegaly, BS hypoactive. EXT: trace edema, no calf tenderness or palpable cords, distal pulses intact and symmetrical. RUE PICC NEURO: minimally withdraws all 4 limbs to pain stimuli, GCS= 9 ([id number]) SKIN: no rashes, warm and dry LABS: WBC= 16.9 HGB= 10.5 PLTs= 252K Coags acceptable Na= 136 K= 4.7 OW=427 HCO3=25 BUN/Cr= 33/1.6 BS= 211 Lactate= 0.7 IMPRESSION / MAJOR PROBLEMS NOW: 1. 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 vs other Metabolic etiology. 2. Acute resp Insuff 2 Multi-lobar Pneumonia / bilateral effusion 3. CAMPBELL leading to ARF, was on temporary HD 4. Uncontrolled DM II 5. LBP syndrome PLAN: 1. Does not need emergent oral intubation for airway protection, unless needed by Pulm for anticipated FOB/BAL. 2. More Narcan, if no sustained wakeful state, will start Narcan infusion. Initial CT Brain on 01/24, now repeated again today. If no definite Stroke seen, consider MRI brain. 3. Neurochecks, Seizure precautions, HOB elevation, consider EEG. 4. CXR and Chest CT from 01/29 looks to exhibit distal tracheal plugging, collapse of ALEJA, infiltrate in RLL, RUL, and LLL: aware that Pulm is considering FOB/BAL. On Meropenam already. Check repeat CXR today. 5. No Advance Directives, full Code status.
--- NOTE | 2018-01-31 13:19 | RAD ---
Date of service: 01/31/2018 PROCEDURE: CHEST RADIOGRAPH, 1 VIEW HISTORY: SOB, congestion, consolidation COMPARISON: Chest radiograph CT chest dated 01/29/2018. FINDINGS: LUNGS: Pulmonary vascular congestion. Similar hazy change involving the left lung with probable persistent collapse of the left upper lobe. PLEURA: Small left pleural effusion. No pneumothorax. CARDIOVASCULAR: Aortic atherosclerotic calcifications. Cardiomediastinal silhouette stably enlarged. OSSEOUS STRUCTURES: Unchanged. VISUALIZED UPPER ABDOMEN: Normal. OTHER FINDINGS: Right upper extremity PICC and right internal jugular access non tunneled hemodialysis catheter, unchanged. IMPRESSION: Probable persistent left upper lobe collapse. Pulmonary vascular congestion and small left pleural effusion, grossly unchanged.
--- NOTE | 2018-01-31 16:12 | CP.PCM.PN ---
Subjective - Date & Time of Evaluation Date of Evaluation: 01/31/18 Time of Evaluation: 11:40 - Subjective Subjective: F/U Respiratory Failure. Pt lethargic, S/P CARE ADMINISTRATIVE TECH in AM today 2nd to AMS, Pt found very lethargic, unresponsive to any stimuli, Narcan .4 mg was administer with initial minimal response Patient was seen in ICU on Narcan drip , alert, smiling , following commands, conversing with her at bedside , no AD no SOB on high flow O2, Objective - Vital Signs/Intake and Output Vital Signs (last 24 hours): Temp Pulse Resp BP Pulse Ox 98.0 F 102 H 20 148/81 100 01/31/18 12:00 01/31/18 14:02 01/31/18 15:23 01/31/18 14:02 01/31/18 14:00 Intake and Output: 01/31/18 01/31/18 06:59 18:59 Intake Total 260 Balance 260 - Medications Medications: Current Medications Acetaminophen (Tylenol 325mg Tab) 650 mg PO Q6 PRN PRN Reason: Pain, Mild (1-3) Last Admin: 01/27/18 21:43 Dose: 650 mg Albuterol/Ipratropium (Duoneb 3 Mg/0.5 Mg (3 Ml) Ud) 3 ml INH RQ4 [facility] Last Admin: 01/31/18 15:23 Dose: 3 ml Amlodipine Besylate (Norvasc) 10 mg PO DAILY [facility] Last Admin: 01/31/18 14:02 Dose: 10 mg Aspirin (Ecotrin) 81 mg PO DAILY [facility] Last Admin: 01/20/18 09:22 Dose: 81 mg Bisoprolol Fumarate (Zebeta) 10 mg PO DAILY [facility] Cholecalciferol (Vitamin D) 1,000 intlu PO DAILY [facility] Last Admin: 01/30/18 15:11 Dose: Not Given Famotidine (Pepcid) 40 mg PO HS [facility] Last Admin: 01/30/18 22:10 Dose: 40 mg Ferrous Gluconate (Fergon) 324 mg PO DAILY [facility] Last Admin: 01/30/18 15:43 Dose: Not Given Furosemide (Lasix) 40 mg PO DAILY [facility] Last Admin: 01/21/18 09:34 Dose: Not Given Glipizide (Glucotrol) 10 mg PO DAILY [facility] Last Admin: 01/30/18 15:53 Dose: Not Given Meropenem 500 mg/ Sodium (Chloride) 100 mls @ 100 mls/hr IVPB Q24H [facility]; Protocol Last Admin: 01/31/18 10:17 Dose: 100 mls/hr Fluconazole (Diflucan Iv 100 Mg/50 Ml Ns) 50 mls @ 50 mls/hr IVPB DAILY [facility]; Protocol Last Admin: 01/31/18 13:02 Dose: 50 mls/hr Naloxone HCl 5 mg/ Sodium (Chloride) 255 mls @ 5.1 mls/hr IVPB ONCE ONE Stop: 02/02/18 13:54 Insulin Human Lispro (Humalog) 0 units SC ACHS [facility]; Protocol Last Admin: 01/31/18 13:00 Dose: 3 units Isosorbide Mononitrate (Imdur Er) 30 mg PO DAILY [facility] Last Admin: 01/31/18 14:01 Dose: 30 mg Lidocaine (Lidoderm) 1 ea TD DAILY [facility] Last Admin: 01/31/18 10:17 Dose: Not Given Methylprednisolone (Solu-Medrol) 10 mg IVP Q8 [facility] Last Admin: 01/31/18 10:19 Dose: 10 mg Pravastatin Sodium (Pravachol) 40 mg PO HS [facility] Last Admin: 01/30/18 22:10 Dose: 40 mg Sitagliptin Phosphate (Januvia) 100 mg PO DAILY [facility] Last Admin: 01/30/18 16:09 Dose: Not Given Sucralfate (Carafate Tab) 1 gm PO BID [facility] Last Admin: 01/30/18 17:15 Dose: 1 gm - Labs Labs: 01/31/18 06:30 01/31/18 06:30 PT 11.3 Seconds (9.8-13.1) 01/31/18 10:57 INR 1.0 01/31/18 10:57 APTT 21.6 Seconds (25.6-37.1) L 01/31/18 10:57 - Constitutional Appears: Chronically Ill - Head Exam Head Exam: NORMAL INSPECTION - ENT Exam ENT Exam: Normal Exam - Neck Exam Neck Exam: Normal Inspection - Respiratory Exam Respiratory Exam: Decreased Breath Sounds (at bases), Rhonchi (few at bases) - Cardiovascular Exam Cardiovascular Exam: REGULAR RHYTHM - GI/Abdominal Exam GI & Abdominal Exam: Soft, Hypoactive Bowel Sounds. absent: Guarding, Rebound - Extremities Exam Additional comments: RUE PICC line in place. - Neurological Exam Neurological Exam: Alert (conversing with at bedside), CN II-XII Intact Additional comments: follows commands, no focal motor/sensory deficit, generalized weakness - Psychiatric Exam Psychiatric exam: Anxious - Skin Skin Exam: Warm Assessment and Plan (1) Pneumonia Status: Acute (2) COPD exacerbation Status: Acute (3) Respiratory failure with hypercapnia Status: Acute (4) Change in mental status Status: Resolved - Assessment and Plan (Free Text) Plan: ABGs showed hypercarbia , hypoxemia 2nd to previous Percocet, stat CT Head no acute new pathology. Bronchoscopy was cancelled. Patient was transferred to ICU , responded to Narcan drip, continue High Flow O2, Avelox, Merren, Solu- Medrol, Duoneb and rest of Tx, CXR distal tracheal secretion, ALEJA collapse, multifocal PNA, L pleural effusion, discussed with Rubber Mixer, for Bronchoscopy am. Critical Care time: 32 min.
--- NOTE | 2018-01-31 19:08 | CARD ---
APPROVED REPORT Date of service: 01/31/2018 EKG Measurement Heart [id number] <Conclusion> Normal sinus rhythm Possible anterior infarct, age undetermined Abnormal ECG
[2018-01-31] MEDS: Pravastatin Sodium 40 MG TAB PO SCH (21:27)
[2018-02-01] MEDS: Albuterol-Ipratrop 3 mg / 0.5 (3 ml) UD INH SCH ×6 (00:03→19:19)
[2018-02-01] MEDS: MethylPREDNISolone 40 mg Vial IVP SCH ×3 (00:07→16:19)
[2018-02-01 05:51] LABS: BASO # 0.1 K/uL (0.0-0.2); BASO % 0.4 % (0.0-2.0); HEMOGLOBIN 9.3 g/dL (12.0-16.0); LYMPH # 0.1 K/uL (1.0-4.3); LYMPH % 0.7 % (20.0-40.0); MEAN CELL VOLUME 90.1 fl (81.0-99.0); MEAN CORPUSCULAR HEMOGLOBIN 28.6 pg (27.0-31.0); MEAN CORPUSCULAR HGB CONC 31.7 g/dL (33.0-37.0); MEAN PLATELET VOLUME 8.4 fl (7.2-11.7); MONO # 0.3 K/uL (0.0-0.8); NEUT # 14.3 K/uL (1.8-7.0); NEUT % 96.9 % (50.0-75.0); PLATELET COUNT 227 K/uL (130-400); RBC 3.25 Mil/uL (3.80-5.20); RED CELL DISTRIBUTION WIDTH 14.8 % (11.5-14.5); WHITE BLOOD COUNT 14.8 K/uL (4.8-10.8)
[2018-02-01 06:05] LABS: CALCIUM 8.4 mg/dL (8.4-10.2)
[2018-02-01] MEDS: Insulin Lispro (humaLOG) 100 Units/ml Inj SC SCH ×4 (06:53→21:19)
--- NOTE | 2018-02-01 07:14 | CP.PCM.PN ---
<Jorge Del Toro - Last Filed: 02/01/18 07:44> Subjective - Date & Time of Evaluation Date of Evaluation: 02/01/18 Time of Evaluation: 06:40 - Subjective Subjective: 78 y/o F was sandi dn examined by bedside with Dr Austin. Pt is awake and alert, complains of LLQ skin irritation that is very painful to touch. Pt denies chest pain, SOB, nausea, vomiting or dysuria. Pt afebrile with No acute events overnight. 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 Hence, pt was trnasferred to ICU. Repeated CT of head was unremarkable. Objective - Vital Signs/Intake and Output Vital Signs (last 24 hours): Temp Pulse Resp BP Pulse Ox 98.6 F 87 22 132/76 100 02/01/18 00:00 02/01/18 02:00 02/01/18 05:10 02/01/18 02:00 02/01/18 00:00 - Medications Medications: Current Medications Acetaminophen (Tylenol 325mg Tab) 650 mg PO Q6 PRN PRN Reason: Pain, Mild (1-3) Albuterol/Ipratropium (Duoneb 3 Mg/0.5 Mg (3 Ml) Ud) 3 ml INH RQ4 [facility] Last Admin: 02/01/18 05:09 Dose: 3 ml Amlodipine Besylate (Norvasc) 10 mg PO DAILY [facility] Bisoprolol Fumarate (Zebeta) 10 mg PO DAILY [facility] Cholecalciferol (Vitamin D) 1,000 intlu PO DAILY [facility] Famotidine (Pepcid) 40 mg PO HS [facility] Last Admin: 01/31/18 21:26 Dose: 40 mg Ferrous Gluconate (Fergon) 324 mg PO DAILY [facility] Furosemide (Lasix) 40 mg PO DAILY [facility] Glipizide (Glucotrol) 10 mg PO DAILY [facility] Fluconazole (Diflucan Iv 100 Mg/50 Ml Ns) 50 mls @ 50 mls/hr IVPB DAILY [facility]; Protocol Meropenem 500 mg/ Sodium (Chloride) 100 mls @ 100 mls/hr IVPB Q24H [facility]; Protocol Insulin Human Lispro (Humalog) 0 units SC ACHS [facility]; Protocol Last Admin: 02/01/18 06:53 Dose: 8 u Isosorbide Mononitrate (Imdur Er) 30 mg PO DAILY [facility] Lidocaine (Lidoderm) 1 ea TD DAILY [facility] Methylprednisolone (Solu-Medrol) 10 mg IVP Q8 [facility] Last Admin: 02/01/18 00:07 Dose: 10 mg Pravastatin Sodium (Pravachol) 40 mg PO HS [facility] Last Admin: 01/31/18 21:27 Dose: 40 mg Sitagliptin Phosphate (Januvia) 100 mg PO DAILY [facility] Sucralfate (Carafate Tab) 1 gm PO BIDAC [facility] - Labs Labs: 02/01/18 04:20 02/01/18 04:20 PT 11.3 Seconds (9.8-13.1) 01/31/18 10:57 INR 1.0 01/31/18 10:57 APTT 21.6 Seconds (25.6-37.1) L 01/31/18 10:57 - Constitutional Appears: No Acute Distress - Head Exam Head Exam: ATRAUMATIC, NORMAL INSPECTION - Eye Exam Eye Exam: EOMI - ENT Exam ENT Exam: Mucous Membranes Dry - Neck Exam Neck Exam: Full ROM, Normal Inspection - Respiratory Exam Respiratory Exam: Decreased Breath Sounds, Rhonchi, NORMAL BREATHING PATTERN - Cardiovascular Exam Cardiovascular Exam: +S1, +S2 - GI/Abdominal Exam GI & Abdominal Exam: Soft. absent: Guarding, Rigid, Tenderness - Extremities Exam Extremities Exam: Normal Inspection. absent: Calf Tenderness - Neurological Exam Neurological Exam: Alert, Awake, Oriented x3 Assessment and Plan - Assessment and Plan (Free Text) Assessment: 77 y/o female patient admitted due to pneumonia, positive Mycoplasma serum IgM, sputum cx positive for yeasts, admission complicated with CAMPBELL on HD, with altered mental status yesterday. PLAN: --WBC still elevated, afebrile, VS stable. --Continue on Meropenem and Fluconazole IV treatments. --Topical Clotrimazole ordered for lower abdomen irritation. --Bronchoscopy cancelled yesterday. --GI consulted, input appreciated --ID on board, input appreciated --Pulmonology on board, input appreciated --Nephro consulted, input appreciated --continue rest of plan as ordered Case discussed with Dr Austin. <Manpreet Austin - Last Filed: 02/01/18 15:42> Objective - Vital Signs/Intake and Output Vital Signs (last 24 hours): Temp Pulse Resp BP Pulse Ox 98.2 F 79 22 132/75 100 02/01/18 12:00 02/01/18 14:00 02/01/18 15:35 02/01/18 14:00 02/01/18 14:00 Intake and Output: 02/01/18 02/01/18 11:59 23:59 Output Total 200 Balance -200 - Medications Medications: Current Medications Acetaminophen (Tylenol 325mg Tab) 650 mg PO Q6 PRN PRN Reason: Pain, Mild (1-3) Albuterol/Ipratropium (Duoneb 3 Mg/0.5 Mg (3 Ml) Ud) 3 ml INH RQ4 [facility] Last Admin: 02/01/18 15:34 Dose: 3 ml Amlodipine Besylate (Norvasc) 10 mg PO DAILY [facility] Last Admin: 02/01/18 08:37 Dose: 10 mg Bisoprolol Fumarate (Zebeta) 10 mg PO DAILY [facility] Last Admin: 02/01/18 08:35 Dose: 10 mg Cholecalciferol (Vitamin D) 1,000 intlu PO DAILY [facility] Last Admin: 02/01/18 08:36 Dose: 1,000 intlu Clotrimazole (Lotrimin 1% Cream) 1 applic TOP BID [facility] Famotidine (Pepcid) 40 mg PO HS [facility] Last Admin: 01/31/18 21:26 Dose: 40 mg Ferrous Gluconate (Fergon) 324 mg PO DAILY [facility] Last Admin: 02/01/18 09:58 Dose: 324 mg Furosemide (Lasix) 40 mg PO DAILY [facility] Last Admin: 02/01/18 08:35 Dose: 40 mg Glipizide (Glucotrol) 10 mg PO DAILY [facility] Last Admin: 02/01/18 08:38 Dose: 10 mg Fluconazole (Diflucan Iv 100 Mg/50 Ml Ns) 50 mls @ 50 mls/hr IVPB DAILY [facility]; Protocol Last Admin: 02/01/18 09:57 Dose: 50 mls/hr Meropenem 500 mg/ Sodium (Chloride) 100 mls @ 100 mls/hr IVPB Q24H [facility]; Protocol Last Admin: 02/01/18 15:16 Dose: 100 mls/hr Sodium Chloride (Sodium Chloride 0.45%) 1,000 mls @ 125 mls/hr IV .Q8H [facility] Stop: 02/02/18 08:46 Last Admin: 02/01/18 15:13 Dose: 125 mls/hr Insulin Human Lispro (Humalog) 0 units SC ACHS [facility]; Protocol Last Admin: 02/01/18 11:42 Dose: 4 u Isosorbide Mononitrate (Imdur Er) 30 mg PO DAILY [facility] Last Admin: 02/01/18 09:58 Dose: 30 mg Lidocaine (Lidoderm) 1 ea TD DAILY [facility] Last Admin: 02/01/18 08:38 Dose: 1 ea Methylprednisolone (Solu-Medrol) 10 mg IVP Q8 [facility] Last Admin: 02/01/18 08:39 Dose: 10 mg Pravastatin Sodium (Pravachol) 40 mg PO HS [facility] Last Admin: 01/31/18 21:27 Dose: 40 mg Sitagliptin Phosphate (Januvia) 100 mg PO DAILY [facility] Last Admin: 02/01/18 08:38 Dose: 100 mg Sucralfate (Carafate Tab) 1 gm PO BIDAC [facility] Last Admin: 02/01/18 08:35 Dose: 1 gm - Labs Labs: 02/01/18 04:20 02/01/18 04:20 PT 11.3 Seconds (9.8-13.1) 01/31/18 10:57 INR 1.0 01/31/18 10:57 APTT 21.6 Seconds (25.6-37.1) L 01/31/18 10:57 Assessment and Plan - Assessment and Plan (Free Text) Assessment: Patient was personally seen and examined by me in rounds with residents. Available labs and diagnostic data reviewed. Case, Patient's condition and management plan discussed with residents in rounds . Agree with resident's progress note. Plan: As ordered.
--- NOTE | 2018-02-01 08:08 | CP.CCUPN ---
CCU Objective - Vital Signs / Intake & Output Vital Signs (Last 4 hours): Vital Signs Resp 02/01/18 05:10 22 Intake and Output (Last 8hrs): Intake & Output 01/31/18 02/01/18 02/01/18 22:59 06:59 14:59 Intake Total 220 Balance 220 Intake: Oral 220 Other: # Voids Urine, Voided 1 - Medications Active Medications: Active Medications Generic Name Dose Route Start Last Admin Trade Name Freq PRN Reason Stop Dose Admin Acetaminophen 650 mg 01/31/18 20:40 Tylenol 325mg Tab PO Q6 PRN Pain, Mild (1-3) Albuterol/Ipratropium 3 ml 02/01/18 00:00 02/01/18 07:40 Duoneb 3 Mg/0.5 Mg (3 Ml) Ud INH 3 ml RQ4 [facility] Administration Amlodipine Besylate 10 mg 02/01/18 09:00 Norvasc PO DAILY [facility] Bisoprolol Fumarate 10 mg 02/01/18 09:00 Zebeta PO DAILY [facility] Cholecalciferol 1,000 intlu 02/01/18 09:00 Vitamin D PO DAILY [facility] Clotrimazole 1 applic 02/01/18 09:00 Lotrimin 1% Cream TOP BID [facility] Famotidine 40 mg 01/31/18 22:00 01/31/18 21:26 Pepcid PO 40 mg HS [facility] Administration Ferrous Gluconate 324 mg 02/01/18 09:00 Fergon PO DAILY [facility] Furosemide 40 mg 02/01/18 09:00 Lasix PO DAILY [facility] Glipizide 10 mg 02/01/18 09:00 Glucotrol PO DAILY [facility] Fluconazole 50 mls @ 50 mls/hr 02/01/18 09:00 Diflucan Iv 100 Mg/50 Ml Ns IVPB DAILY [facility] Protocol Meropenem 500 mg/ Sodium 100 mls @ 100 mls/hr 02/01/18 09:00 Chloride IVPB Q24H [facility] Protocol Insulin Human Lispro 0 units 01/31/18 22:00 02/01/18 06:53 Humalog SC 8 u ACHS [facility] Administration Protocol Isosorbide Mononitrate 30 mg 02/01/18 09:00 Imdur Er PO DAILY [facility] Lidocaine 1 ea 02/01/18 09:00 Lidoderm TD DAILY [facility] Methylprednisolone 10 mg 02/01/18 01:00 02/01/18 00:07 Solu-Medrol IVP 10 mg Q8 [facility] Administration Pravastatin Sodium 40 mg 01/31/18 22:00 01/31/18 21:27 Pravachol PO 40 mg HS [facility] Administration Sitagliptin Phosphate 100 mg 02/01/18 09:00 Januvia PO DAILY [facility] Sucralfate 1 gm 02/01/18 09:00 Carafate Tab PO BIDAC [facility] - Patient Studies Lab Studies: Lab Studies 02/01/18 02/01/18 02/01/18 Range/Units 05:56 04:20 04:20 WBC 14.8 H (4.8-10.8) K/uL RBC 3.25 L (3.80-5.20) Mil/uL Hgb 9.3 L (12.0-16.0) g/dL Hct 29.3 L (34.0-47.0) % MCV 90.1 (81.0-99.0) fl MCH 28.6 (27.0-31.0) pg MCHC 31.7 L (33.0-37.0) g/dL RDW 14.8 H (11.5-14.5) % Plt Count 227 (130-400) K/uL MPV 8.4 (7.2-11.7) fl Neut % (Auto) 96.9 H (50.0-75.0) % Lymph % (Auto) 0.7 L (20.0-40.0) % Thomas % (Auto) 2.0 (0.0-10.0) % Eos % (Auto) 0.0 (0.0-4.0) % Baso % (Auto) 0.4 (0.0-2.0) % Neut # (Auto) 14.3 H (1.8-7.0) K/uL Lymph # (Auto) 0.1 L (1.0-4.3) K/uL Thomas # (Auto) 0.3 (0.0-0.8) K/uL Eos # (Auto) 0.0 (0.0-0.7) K/uL Baso # (Auto) 0.1 (0.0-0.2) K/uL PT (9.8-13.1) Seconds INR APTT (25.6-37.1) Seconds Sodium 137 (132-148) mmol/l Potassium 4.9 (3.6-5.0) MMOL/L Chloride 101 (98-107) mmol/L Carbon Dioxide 27 (22-30) mmol/L Anion Gap 14 (10-20) BUN 46 H (7-17) mg/dl Creatinine 1.7 H (0.7-1.2) mg/dl Est GFR ( Amer) 35 Est GFR (Non-Af Amer) 29 POC Glucose (mg/dL) 364 H (65-110) mg/dL Random Glucose 353 H (65-105) mg/dL Lactic Acid (0.7-2.1) MMOL/L Calcium 8.4 (8.4-10.2) mg/dL 01/31/18 01/31/18 01/31/18 Range/Units 21:11 18:30 16:38 WBC (4.8-10.8) K/uL RBC (3.80-5.20) Mil/uL Hgb (12.0-16.0) g/dL Hct (34.0-47.0) % MCV (81.0-99.0) fl MCH (27.0-31.0) pg MCHC (33.0-37.0) g/dL RDW (11.5-14.5) % Plt Count (130-400) K/uL MPV (7.2-11.7) fl Neut % (Auto) (50.0-75.0) % Lymph % (Auto) (20.0-40.0) % Thomas % (Auto) (0.0-10.0) % Eos % (Auto) (0.0-4.0) % Baso % (Auto) (0.0-2.0) % Neut # (Auto) (1.8-7.0) K/uL Lymph # (Auto) (1.0-4.3) K/uL Thomas # (Auto) (0.0-0.8) K/uL Eos # (Auto) (0.0-0.7) K/uL Baso # (Auto) (0.0-0.2) K/uL PT (9.8-13.1) Seconds INR APTT (25.6-37.1) Seconds Sodium 136 (132-148) mmol/l Potassium 4.7 (3.6-5.0) MMOL/L Chloride 101 (98-107) mmol/L Carbon Dioxide 25 (22-30) mmol/L Anion Gap 15 (10-20) BUN 33 H (7-17) mg/dl Creatinine 1.6 H (0.7-1.2) mg/dl Est GFR ( Amer) 38 Est GFR (Non-Af Amer) 31 POC Glucose (mg/dL) 420 H* 290 H (65-110) mg/dL Random Glucose 211 H (65-105) mg/dL Lactic Acid (0.7-2.1) MMOL/L Calcium 8.3 L (8.4-10.2) mg/dL 01/31/18 01/31/18 01/31/18 Range/Units 11:29 10:57 10:57 WBC (4.8-10.8) K/uL RBC (3.80-5.20) Mil/uL Hgb (12.0-16.0) g/dL Hct (34.0-47.0) % MCV (81.0-99.0) fl MCH (27.0-31.0) pg MCHC (33.0-37.0) g/dL RDW (11.5-14.5) % Plt Count (130-400) K/uL MPV (7.2-11.7) fl Neut % (Auto) (50.0-75.0) % Lymph % (Auto) (20.0-40.0) % Thomas % (Auto) (0.0-10.0) % Eos % (Auto) (0.0-4.0) % Baso % (Auto) (0.0-2.0) % Neut # (Auto) (1.8-7.0) K/uL Lymph # (Auto) (1.0-4.3) K/uL Thomas # (Auto) (0.0-0.8) K/uL Eos # (Auto) (0.0-0.7) K/uL Baso # (Auto) (0.0-0.2) K/uL PT 11.3 (9.8-13.1) Seconds INR 1.0 APTT 21.6 L (25.6-37.1) Seconds Sodium (132-148) mmol/l Potassium (3.6-5.0) MMOL/L Chloride (98-107) mmol/L Carbon Dioxide (22-30) mmol/L Anion Gap (10-20) BUN (7-17) mg/dl Creatinine (0.7-1.2) mg/dl Est GFR ( Amer) Est GFR (Non-Af Amer) POC Glucose (mg/dL) 230 H (65-110) mg/dL Random Glucose (65-105) mg/dL Lactic Acid 0.7 (0.7-2.1) MMOL/L Calcium (8.4-10.2) mg/dL 01/31/18 Range/Units 09:24 WBC (4.8-10.8) K/uL RBC (3.80-5.20) Mil/uL Hgb (12.0-16.0) g/dL Hct (34.0-47.0) % MCV (81.0-99.0) fl MCH (27.0-31.0) pg MCHC (33.0-37.0) g/dL RDW (11.5-14.5) % Plt Count (130-400) K/uL MPV (7.2-11.7) fl Neut % (Auto) (50.0-75.0) % Lymph % (Auto) (20.0-40.0) % Thomas % (Auto) (0.0-10.0) % Eos % (Auto) (0.0-4.0) % Baso % (Auto) (0.0-2.0) % Neut # (Auto) (1.8-7.0) K/uL Lymph # (Auto) (1.0-4.3) K/uL Thomas # (Auto) (0.0-0.8) K/uL Eos # (Auto) (0.0-0.7) K/uL Baso # (Auto) (0.0-0.2) K/uL PT (9.8-13.1) Seconds INR APTT (25.6-37.1) Seconds Sodium (132-148) mmol/l Potassium (3.6-5.0) MMOL/L Chloride (98-107) mmol/L Carbon Dioxide (22-30) mmol/L Anion Gap (10-20) BUN (7-17) mg/dl Creatinine (0.7-1.2) mg/dl Est GFR ( Amer) Est GFR (Non-Af Amer) POC Glucose (mg/dL) 270 H (65-110) mg/dL Random Glucose (65-105) mg/dL Lactic Acid (0.7-2.1) MMOL/L Calcium (8.4-10.2) mg/dL Laboratory Results - last 24 hr 01/31/18 01/31/18 01/31/18 09:24 10:57 10:57 WBC RBC Hgb Hct MCV MCH MCHC RDW Plt Count MPV Neut % (Auto) Lymph % (Auto) Thomas % (Auto) Eos % (Auto) Baso % (Auto) Neut # (Auto) Lymph # (Auto) Thomas # (Auto) Eos # (Auto) Baso # (Auto) PT 11.3 INR 1.0 APTT 21.6 L Sodium Potassium Chloride Carbon Dioxide Anion Gap BUN Creatinine Est GFR ( Amer) Est GFR (Non-Af Amer) POC Glucose (mg/dL) 270 H Random Glucose Lactic Acid 0.7 Calcium 01/31/18 01/31/18 01/31/18 11:29 16:38 18:30 WBC RBC Hgb Hct MCV MCH MCHC RDW Plt Count MPV Neut % (Auto) Lymph % (Auto) Thomas % (Auto) Eos % (Auto) Baso % (Auto) Neut # (Auto) Lymph # (Auto) Thomas # (Auto) Eos # (Auto) Baso # (Auto) PT INR APTT Sodium 136 Potassium 4.7 Chloride 101 Carbon Dioxide 25 Anion Gap 15 BUN 33 H Creatinine 1.6 H Est GFR ( Amer) 38 Est GFR (Non-Af Amer) 31 POC Glucose (mg/dL) 230 H 290 H Random Glucose 211 H Lactic Acid Calcium 8.3 L 01/31/18 02/01/18 02/01/18 21:11 04:20 04:20 WBC 14.8 H RBC 3.25 L Hgb 9.3 L Hct 29.3 L MCV 90.1 MCH 28.6 MCHC 31.7 L RDW 14.8 H Plt Count 227 MPV 8.4 Neut % (Auto) 96.9 H Lymph % (Auto) 0.7 L Thomas % (Auto) 2.0 Eos % (Auto) 0.0 Baso % (Auto) 0.4 Neut # (Auto) 14.3 H Lymph # (Auto) 0.1 L Thomas # (Auto) 0.3 Eos # (Auto) 0.0 Baso # (Auto) 0.1 PT INR APTT Sodium 137 Potassium 4.9 Chloride 101 Carbon Dioxide 27 Anion Gap 14 BUN 46 H Creatinine 1.7 H Est GFR ( Amer) 35 Est GFR (Non-Af Amer) 29 POC Glucose (mg/dL) 420 H* Random Glucose 353 H Lactic Acid Calcium 8.4 02/01/18 05:56 WBC RBC Hgb Hct MCV MCH MCHC RDW Plt Count MPV Neut % (Auto) Lymph % (Auto) Thomas % (Auto) Eos % (Auto) Baso % (Auto) Neut # (Auto) Lymph # (Auto) Thomas # (Auto) Eos # (Auto) Baso # (Auto) PT INR APTT Sodium Potassium Chloride Carbon Dioxide Anion Gap BUN Creatinine Est GFR ( Amer) Est GFR (Non-Af Amer) POC Glucose (mg/dL) 364 H Random Glucose Lactic Acid Calcium EKG/Cardiology Studies: Cardiology / EKG Studies 01/31/18 07:46 EKG [ELECTROCARDIOGRAM] Stat Comment: Mode Of Transportation: PORTABLE Reason For Exam: clearence for procedure Fingerstick Blood Sugar Results: 364 Critical Care Progress Note - Nutrition Nutrition: Nutrition Category Date Time Status NPO Diet [DIET] Diets 01/31/18 Dinner Active
[2018-02-01] MEDS: Cholecalciferol 1,000 INTLU TAB PO SCH (08:36)
[2018-02-01] MEDS: Lidocaine 5% Patch TD SCH (08:38)
[2018-02-01 08:52] LABS: LYMPHOCYTE 3 % (20-50); MONOCYTE 4 % (0-10); NEUTROPHIL 93 % (42-75); TOTAL CELLS COUNTED 100
[2018-02-01 08:53] LABS: ANISOCYTOSIS SLIGHT; MICROCYTOSIS SLIGHT; PLATELET ESTIMATE NORMAL (NORMAL); SPHEROCYTES SLIGHT
[2018-02-01 08:54] LABS: LARGE PLATELETS PRESENT; TEARDROP CELLS SLIGHT
[2018-02-01] MEDS: Fluconazole IV 100mg/50 ml NS 50 ML IVPB SCH (09:57)
--- NOTE | 2018-02-01 10:29 | CP.CCUPN ---
CCU Subjective - Physician Review Subjective (Free Text): After arrival to ICU yesterday morning, patient awakened after 2nd dose of Narcan with return back to usual neuromental baseline status, and asking for food. No distress since, no new events overnight, anuric, now on HD this AM. Remains on HFNC= 40%. 20 LPM; with 98% SPo2. Discussed with Pulm, requests stabilization prior to FOB/BAL. No fevers overnight, temps mostly 97 -98F, normotensive, Spo2 97% on HFNC. HR 99, BP 150/80s. SPO2 94% on RA. Other vitals and I/O's reviewed. No urine output noted. ROS: No other pertinent negs or positives on 10+ system review. PMSFH: All other Nursing and physician documentation reviewed to date; no new pertinent info noted relevant to current medical problems. EXAM- HEENT: no icterus, no gaze preference, Pupils 3 mm and reactive, unable to test for gag bites down on tongue depressor. NECK: No JVD visible, supple, carotids equal upstroke bilat/no bruit CHEST: decreased bi-basilar BS , no wheezes audible, R chest Dialysis catheter HEART: regular, distant S1S2, no rubs ABD: soft, no focal tenderness, no guarding, no organomegaly, BS hypoactive. EXT: trace edema, no calf tenderness or palpable cords, distal pulses intact and symmetrical. RUE PICC NEURO: minimally withdraws all 4 limbs to pain stimuli, GCS= 9 ([id number]) SKIN: no rashes, warm and dry LABS: WBC= 14.8 HGB= 9.3 PLTs= 227K Coags acceptable Na= 137 K= 4.9 WL=840 HCO3=27 BUN/Cr= 46/1.7 BS= 353 IMPRESSION / MAJOR PROBLEMS NOW: 1. 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 vs other Metabolic etiology. 2. Acute resp Insuff 2 Multi-lobar Pneumonia / bilateral effusion 3. CAMPBELL leading to ARF, was on temporary HD 4. Uncontrolled DM II 5. LBP syndrome PLAN: 1. Trial regular nasal cannula. If fiO2 requirements remain high, may need prophylactic oral intubation and MV support during FOB procedure. Empric Meropenam coverage, f/u Sputum Cx with yeast growth ( ?? true infection vs colonization). 2. If no FOB today, stable for transfer back to [facility]. 3. Try to maintain better glycemic control. 4. No Advance Directives, full Code status.
--- NOTE | 2018-02-01 12:08 | CP.PCM.PN ---
Subjective - Date & Time of Evaluation Date of Evaluation: 02/01/18 Time of Evaluation: 12:08 - Subjective Subjective: pt is feeling slightly b jalyn, pt is alert,awake, following commands, pt is being dialyzed, uf goal is 1.5 lit Objective - Vital Signs/Intake and Output Vital Signs (last 24 hours): Temp Pulse Resp BP Pulse Ox 97.9 F 80 12 129/67 100 02/01/18 08:00 02/01/18 10:00 02/01/18 10:00 02/01/18 10:00 02/01/18 10:00 - Medications Medications: Current Medications Acetaminophen (Tylenol 325mg Tab) 650 mg PO Q6 PRN PRN Reason: Pain, Mild (1-3) Albuterol/Ipratropium (Duoneb 3 Mg/0.5 Mg (3 Ml) Ud) 3 ml INH RQ4 [facility] Last Admin: 02/01/18 11:13 Dose: 3 ml Amlodipine Besylate (Norvasc) 10 mg PO DAILY [facility] Last Admin: 02/01/18 08:37 Dose: 10 mg Bisoprolol Fumarate (Zebeta) 10 mg PO DAILY [facility] Last Admin: 02/01/18 08:35 Dose: 10 mg Cholecalciferol (Vitamin D) 1,000 intlu PO DAILY [facility] Last Admin: 02/01/18 08:36 Dose: 1,000 intlu Clotrimazole (Lotrimin 1% Cream) 1 applic TOP BID [facility] Famotidine (Pepcid) 40 mg PO HS [facility] Last Admin: 01/31/18 21:26 Dose: 40 mg Ferrous Gluconate (Fergon) 324 mg PO DAILY [facility] Last Admin: 02/01/18 09:58 Dose: 324 mg Furosemide (Lasix) 40 mg PO DAILY [facility] Last Admin: 02/01/18 08:35 Dose: 40 mg Glipizide (Glucotrol) 10 mg PO DAILY [facility] Last Admin: 02/01/18 08:38 Dose: 10 mg Fluconazole (Diflucan Iv 100 Mg/50 Ml Ns) 50 mls @ 50 mls/hr IVPB DAILY [facility]; Protocol Last Admin: 02/01/18 09:57 Dose: 50 mls/hr Meropenem 500 mg/ Sodium (Chloride) 100 mls @ 100 mls/hr IVPB Q24H [facility]; Protocol Sodium Chloride (Sodium Chloride 0.45%) 1,000 mls @ 125 mls/hr IV .Q8H [facility] Stop: 02/02/18 08:46 Insulin Human Lispro (Humalog) 0 units SC ACHS [facility]; Protocol Last Admin: 02/01/18 11:42 Dose: 4 u Isosorbide Mononitrate (Imdur Er) 30 mg PO DAILY [facility] Last Admin: 02/01/18 09:58 Dose: 30 mg Lidocaine (Lidoderm) 1 ea TD DAILY [facility] Last Admin: 02/01/18 08:38 Dose: 1 ea Methylprednisolone (Solu-Medrol) 10 mg IVP Q8 [facility] Last Admin: 02/01/18 08:39 Dose: 10 mg Pravastatin Sodium (Pravachol) 40 mg PO HS [facility] Last Admin: 01/31/18 21:27 Dose: 40 mg Sitagliptin Phosphate (Januvia) 100 mg PO DAILY [facility] Last Admin: 02/01/18 08:38 Dose: 100 mg Sucralfate (Carafate Tab) 1 gm PO BIDAC [facility] Last Admin: 02/01/18 08:35 Dose: 1 gm - Labs Labs: 02/01/18 04:20 02/01/18 04:20 PT 11.3 Seconds (9.8-13.1) 01/31/18 10:57 INR 1.0 01/31/18 10:57 APTT 21.6 Seconds (25.6-37.1) L 01/31/18 10:57 - Constitutional Appears: Well, No Acute Distress - Head Exam Head Exam: ATRAUMATIC, NORMAL INSPECTION, NORMOCEPHALIC - Eye Exam Eye Exam: EOMI, Normal appearance, PERRL Pupil Exam: NORMAL ACCOMODATION - ENT Exam ENT Exam: Mucous Membranes Moist - Neck Exam Neck Exam: Full ROM, Normal Inspection - Respiratory Exam Respiratory Exam: Decreased Breath Sounds Additional comments: decreased bs left upper chest, no crackles - Cardiovascular Exam Cardiovascular Exam: REGULAR RHYTHM, +S1 - GI/Abdominal Exam GI & Abdominal Exam: Soft, Normal Bowel Sounds - Rectal Exam Rectal Exam: Deferred - Neurological Exam Neurological Exam: Alert, Awake, CN II-XII Intact, Oriented x3 - Psychiatric Exam Psychiatric exam: Normal Mood - Skin Skin Exam: Normal Color, Warm Assessment and Plan - Assessment and Plan (Free Text) Assessment: 78 yo HF with pmh/o htn, dm hld, chf, copd, ? spinal stenosis, ckd with sob, being treated for mycoplasma pneumonia with b/l infiltrates, AMS this am, s/p [employer], pt is more alert, awake 1. Luís on ckd-3 2. htn 3. Mycoplasma pneumonia 4. DM 5. AMS, s/p [employer] b/l pneumonia, ? white out on left side follow up pulmonary , chest physical therapy, c/w IV ABx as per ID, renal function is stable. will hold hd after today's treatment, monitor bmp daily d/w icu attending in rounds, Dr. Brooks
--- NOTE | 2018-02-01 13:09 | CP.PCM.PN ---
Subjective - Date & Time of Evaluation Date of Evaluation: 02/01/18 Time of Evaluation: 13:07 - Subjective Subjective: doing better Objective - Vital Signs/Intake and Output Vital Signs (last 24 hours): Temp Pulse Resp BP Pulse Ox 98.2 F 84 27 H 129/68 100 02/01/18 12:00 02/01/18 12:00 02/01/18 12:00 02/01/18 12:00 02/01/18 12:00 Intake and Output: 02/01/18 02/01/18 06:59 18:59 Output Total 200 Balance -200 - Medications Medications: Current Medications Acetaminophen (Tylenol 325mg Tab) 650 mg PO Q6 PRN PRN Reason: Pain, Mild (1-3) Albuterol/Ipratropium (Duoneb 3 Mg/0.5 Mg (3 Ml) Ud) 3 ml INH RQ4 [facility] Last Admin: 02/01/18 11:13 Dose: 3 ml Amlodipine Besylate (Norvasc) 10 mg PO DAILY [facility] Last Admin: 02/01/18 08:37 Dose: 10 mg Bisoprolol Fumarate (Zebeta) 10 mg PO DAILY [facility] Last Admin: 02/01/18 08:35 Dose: 10 mg Cholecalciferol (Vitamin D) 1,000 intlu PO DAILY [facility] Last Admin: 02/01/18 08:36 Dose: 1,000 intlu Clotrimazole (Lotrimin 1% Cream) 1 applic TOP BID [facility] Famotidine (Pepcid) 40 mg PO HS [facility] Last Admin: 01/31/18 21:26 Dose: 40 mg Ferrous Gluconate (Fergon) 324 mg PO DAILY [facility] Last Admin: 02/01/18 09:58 Dose: 324 mg Furosemide (Lasix) 40 mg PO DAILY [facility] Last Admin: 02/01/18 08:35 Dose: 40 mg Glipizide (Glucotrol) 10 mg PO DAILY [facility] Last Admin: 02/01/18 08:38 Dose: 10 mg Fluconazole (Diflucan Iv 100 Mg/50 Ml Ns) 50 mls @ 50 mls/hr IVPB DAILY [facility]; Protocol Last Admin: 02/01/18 09:57 Dose: 50 mls/hr Meropenem 500 mg/ Sodium (Chloride) 100 mls @ 100 mls/hr IVPB Q24H [facility]; Protocol Sodium Chloride (Sodium Chloride 0.45%) 1,000 mls @ 125 mls/hr IV .Q8H [facility] Stop: 02/02/18 08:46 Insulin Human Lispro (Humalog) 0 units SC ACHS [facility]; Protocol Last Admin: 02/01/18 11:42 Dose: 4 u Isosorbide Mononitrate (Imdur Er) 30 mg PO DAILY [facility] Last Admin: 02/01/18 09:58 Dose: 30 mg Lidocaine (Lidoderm) 1 ea TD DAILY [facility] Last Admin: 02/01/18 08:38 Dose: 1 ea Methylprednisolone (Solu-Medrol) 10 mg IVP Q8 [facility] Last Admin: 02/01/18 08:39 Dose: 10 mg Pravastatin Sodium (Pravachol) 40 mg PO HS [facility] Last Admin: 01/31/18 21:27 Dose: 40 mg Sitagliptin Phosphate (Januvia) 100 mg PO DAILY [facility] Last Admin: 02/01/18 08:38 Dose: 100 mg Sucralfate (Carafate Tab) 1 gm PO BIDAC [facility] Last Admin: 02/01/18 08:35 Dose: 1 gm - Labs Labs: 02/01/18 04:20 02/01/18 04:20 PT 11.3 Seconds (9.8-13.1) 01/31/18 10:57 INR 1.0 01/31/18 10:57 APTT 21.6 Seconds (25.6-37.1) L 01/31/18 10:57 - Neck Exam Neck Exam: Normal Inspection - Respiratory Exam Respiratory Exam: Wheezes, NORMAL BREATHING PATTERN - Cardiovascular Exam Cardiovascular Exam: REGULAR RHYTHM - GI/Abdominal Exam GI & Abdominal Exam: Soft, Normal Bowel Sounds Assessment and Plan - Assessment and Plan (Free Text) Assessment: 78 yo female with resp distress doing well no active GI issues
--- NOTE | 2018-02-01 13:55 | CP.PCM.PN ---
Subjective - Date & Time of Evaluation Date of Evaluation: 02/01/18 Time of Evaluation: 08:00 - Subjective Subjective: EVENTS NOTED AFEBRILE RX IN PROGRESS Objective - Vital Signs/Intake and Output Vital Signs (last 24 hours): Temp Pulse Resp BP Pulse Ox 98.2 F 88 22 139/72 100 02/01/18 12:00 02/01/18 13:02 02/01/18 13:02 02/01/18 13:02 02/01/18 13:02 Intake and Output: 02/01/18 02/01/18 06:59 18:59 Output Total 200 Balance -200 - Medications Medications: Current Medications Acetaminophen (Tylenol 325mg Tab) 650 mg PO Q6 PRN PRN Reason: Pain, Mild (1-3) Albuterol/Ipratropium (Duoneb 3 Mg/0.5 Mg (3 Ml) Ud) 3 ml INH RQ4 [facility] Last Admin: 02/01/18 11:13 Dose: 3 ml Amlodipine Besylate (Norvasc) 10 mg PO DAILY [facility] Last Admin: 02/01/18 08:37 Dose: 10 mg Bisoprolol Fumarate (Zebeta) 10 mg PO DAILY [facility] Last Admin: 02/01/18 08:35 Dose: 10 mg Cholecalciferol (Vitamin D) 1,000 intlu PO DAILY [facility] Last Admin: 02/01/18 08:36 Dose: 1,000 intlu Clotrimazole (Lotrimin 1% Cream) 1 applic TOP BID [facility] Famotidine (Pepcid) 40 mg PO HS [facility] Last Admin: 01/31/18 21:26 Dose: 40 mg Ferrous Gluconate (Fergon) 324 mg PO DAILY [facility] Last Admin: 02/01/18 09:58 Dose: 324 mg Furosemide (Lasix) 40 mg PO DAILY [facility] Last Admin: 02/01/18 08:35 Dose: 40 mg Glipizide (Glucotrol) 10 mg PO DAILY [facility] Last Admin: 02/01/18 08:38 Dose: 10 mg Fluconazole (Diflucan Iv 100 Mg/50 Ml Ns) 50 mls @ 50 mls/hr IVPB DAILY [facility]; Protocol Last Admin: 02/01/18 09:57 Dose: 50 mls/hr Meropenem 500 mg/ Sodium (Chloride) 100 mls @ 100 mls/hr IVPB Q24H [facility]; Protocol Sodium Chloride (Sodium Chloride 0.45%) 1,000 mls @ 125 mls/hr IV .Q8H [facility] Stop: 02/02/18 08:46 Insulin Human Lispro (Humalog) 0 units SC ACHS [facility]; Protocol Last Admin: 02/01/18 11:42 Dose: 4 u Isosorbide Mononitrate (Imdur Er) 30 mg PO DAILY [facility] Last Admin: 02/01/18 09:58 Dose: 30 mg Lidocaine (Lidoderm) 1 ea TD DAILY [facility] Last Admin: 02/01/18 08:38 Dose: 1 ea Methylprednisolone (Solu-Medrol) 10 mg IVP Q8 [facility] Last Admin: 02/01/18 08:39 Dose: 10 mg Pravastatin Sodium (Pravachol) 40 mg PO HS [facility] Last Admin: 01/31/18 21:27 Dose: 40 mg Sitagliptin Phosphate (Januvia) 100 mg PO DAILY [facility] Last Admin: 02/01/18 08:38 Dose: 100 mg Sucralfate (Carafate Tab) 1 gm PO BIDAC [facility] Last Admin: 02/01/18 08:35 Dose: 1 gm - Labs Labs: 02/01/18 04:20 02/01/18 04:20 PT 11.3 Seconds (9.8-13.1) 01/31/18 10:57 INR 1.0 01/31/18 10:57 APTT 21.6 Seconds (25.6-37.1) L 01/31/18 10:57 - Constitutional Appears: Non-toxic, Chronically Ill - Head Exam Head Exam: NORMOCEPHALIC - Eye Exam Eye Exam: absent: Scleral icterus - ENT Exam ENT Exam: Mucous Membranes Dry - Neck Exam Neck Exam: absent: Lymphadenopathy - Respiratory Exam Respiratory Exam: Decreased Breath Sounds - Cardiovascular Exam Cardiovascular Exam: REGULAR RHYTHM - GI/Abdominal Exam GI & Abdominal Exam: Distended, Soft - Extremities Exam Extremities Exam: absent: Pedal Edema Assessment and Plan (1) Pneumonia Status: Acute (2) COPD (chronic obstructive pulmonary disease) Status: Chronic - Assessment and Plan (Free Text) Assessment: CONT IV RX HD IN PROGRESS NO NEW CULTURES
[2018-02-01] MEDS: Sodium Chloride 0.45% 1,000 ML IV SCH ×2 (15:13→20:00)
[2018-02-01] MEDS: Meropenem 500 MG in Sodium Chloride 0.9% 100 ML IVPB SCH (15:16)
--- NOTE | 2018-02-01 16:55 | CP.PCM.PN ---
Subjective - Date & Time of Evaluation Date of Evaluation: 02/02/18 - Subjective Subjective: F/U Respiratory Failure/ PNA Pt awake, smiling, no A/D, no SOB on high flow O2, intermittent dry cough, had HD today. Objective - Vital Signs/Intake and Output Vital Signs (last 24 hours): Temp Pulse Resp BP Pulse Ox 98.4 F 89 20 125/59 L 97 02/01/18 16:31 02/01/18 16:31 02/01/18 16:31 02/01/18 16:31 02/01/18 16:31 Intake and Output: 02/01/18 02/01/18 06:59 18:59 Output Total 200 Balance -200 - Medications Medications: Current Medications Acetaminophen (Tylenol 325mg Tab) 650 mg PO Q6 PRN PRN Reason: Pain, Mild (1-3) Albuterol/Ipratropium (Duoneb 3 Mg/0.5 Mg (3 Ml) Ud) 3 ml INH RQ4 [facility] Last Admin: 02/01/18 15:34 Dose: 3 ml Amlodipine Besylate (Norvasc) 10 mg PO DAILY [facility] Last Admin: 02/01/18 08:37 Dose: 10 mg Bisoprolol Fumarate (Zebeta) 10 mg PO DAILY [facility] Last Admin: 02/01/18 08:35 Dose: 10 mg Cholecalciferol (Vitamin D) 1,000 intlu PO DAILY [facility] Last Admin: 02/01/18 08:36 Dose: 1,000 intlu Clotrimazole (Lotrimin 1% Cream) 1 applic TOP BID [facility] Famotidine (Pepcid) 40 mg PO HS [facility] Last Admin: 01/31/18 21:26 Dose: 40 mg Ferrous Gluconate (Fergon) 324 mg PO DAILY [facility] Last Admin: 02/01/18 09:58 Dose: 324 mg Furosemide (Lasix) 40 mg PO DAILY [facility] Last Admin: 02/01/18 08:35 Dose: 40 mg Glipizide (Glucotrol) 10 mg PO DAILY [facility] Last Admin: 02/01/18 08:38 Dose: 10 mg Fluconazole (Diflucan Iv 100 Mg/50 Ml Ns) 50 mls @ 50 mls/hr IVPB DAILY [facility]; Protocol Last Admin: 02/01/18 09:57 Dose: 50 mls/hr Meropenem 500 mg/ Sodium (Chloride) 100 mls @ 100 mls/hr IVPB Q24H [facility]; Protocol Last Admin: 02/01/18 15:16 Dose: 100 mls/hr Sodium Chloride (Sodium Chloride 0.45%) 1,000 mls @ 125 mls/hr IV .Q8H [facility] Stop: 02/02/18 08:46 Last Admin: 02/01/18 15:13 Dose: 125 mls/hr Insulin Human Lispro (Humalog) 0 units SC ACHS [facility]; Protocol Last Admin: 02/01/18 16:20 Dose: Not Given Isosorbide Mononitrate (Imdur Er) 30 mg PO DAILY [facility] Last Admin: 02/01/18 09:58 Dose: 30 mg Lidocaine (Lidoderm) 1 ea TD DAILY [facility] Last Admin: 02/01/18 08:38 Dose: 1 ea Methylprednisolone (Solu-Medrol) 10 mg IVP Q8 [facility] Last Admin: 02/01/18 16:19 Dose: 10 mg Pravastatin Sodium (Pravachol) 40 mg PO HS [facility] Last Admin: 01/31/18 21:27 Dose: 40 mg Sitagliptin Phosphate (Januvia) 100 mg PO DAILY [facility] Last Admin: 02/01/18 08:38 Dose: 100 mg Sucralfate (Carafate Tab) 1 gm PO BIDAC [facility] Last Admin: 02/01/18 16:18 Dose: 1 gm - Labs Labs: 02/01/18 04:20 02/01/18 04:20 PT 11.3 Seconds (9.8-13.1) 01/31/18 10:57 INR 1.0 01/31/18 10:57 APTT 21.6 Seconds (25.6-37.1) L 01/31/18 10:57 - Constitutional Appears: No Acute Distress, Chronically Ill - Head Exam Head Exam: NORMAL INSPECTION - Eye Exam Eye Exam: PERRL - ENT Exam ENT Exam: Normal Exam - Neck Exam Neck Exam: Normal Inspection - Respiratory Exam Respiratory Exam: Decreased Breath Sounds (at bases), Rhonchi (few at bases) - Cardiovascular Exam Cardiovascular Exam: REGULAR RHYTHM - GI/Abdominal Exam GI & Abdominal Exam: Soft, Hypoactive Bowel Sounds. absent: Guarding, Rebound - Extremities Exam Additional comments: RUE PICC line in place - Neurological Exam Neurological Exam: Alert (conversing with at bedside), CN II-XII Intact Additional comments: Follows commands, no focal motor/sensory deficit, generalized weakness. - Psychiatric Exam Psychiatric exam: Anxious - Skin Skin Exam: Warm Assessment and Plan (1) Pneumonia Status: Acute (2) COPD exacerbation Status: Acute (3) Respiratory failure with hypercapnia Status: Acute (4) Change in mental status Status: Resolved - Assessment and Plan (Free Text) Plan: F/U CXR (no result available yet) to assess the need for Bronchoscopy. Continue Merren, Duoneb, Solu-Medrol, Diflucan and rest of Tx. Critical care time: 35 min.
--- NOTE | 2018-02-01 18:35 | RAD ---
Date of service: 02/01/2018 HISTORY: congestion COMPARISON: Chest radiograph dated 01/31/2018. FINDINGS: LUNGS: Pulmonary vascular congestion. More confluent hazy change involving the left lung with probable persistent collapse of the left upper lobe. PLEURA: Small left pleural effusion. No pneumothorax. CARDIOVASCULAR: Aortic atherosclerotic calcifications. Cardiomediastinal silhouette stably enlarged. OSSEOUS STRUCTURES: Chest. VISUALIZED UPPER ABDOMEN: Normal. OTHER FINDINGS: Right upper extremity PICC and right internal jugular access non tunneled hemodialysis catheter is, unchanged. IMPRESSION: Probable persistent left upper lobe collapse. Pulmonary vascular congestion and small left pleural effusion, grossly unchanged.
[2018-02-01] MEDS: Pravastatin Sodium 40 MG TAB PO SCH (21:18)
[2018-02-02] MEDS: Albuterol-Ipratrop 3 mg / 0.5 (3 ml) UD INH SCH ×7 (00:04→23:38)
[2018-02-02] MEDS: Sodium Chloride 0.45% 1,000 ML IV SCH ×3 (00:47→20:38)
[2018-02-02] MEDS: MethylPREDNISolone 40 mg Vial IVP SCH ×3 (00:50→18:13)
[2018-02-02] MEDS: Insulin Lispro (humaLOG) 100 Units/ml Inj SC SCH ×4 (10:10→21:25)
[2018-02-02] MEDS: Fluconazole IV 100mg/50 ml NS 50 ML IVPB SCH (10:13)
[2018-02-02] MEDS: Lidocaine 5% Patch TD SCH (10:15)
[2018-02-02] MEDS: Cholecalciferol 1,000 INTLU TAB PO SCH ×2 (10:19→12:44)
[2018-02-02] MEDS: Meropenem 500 MG in Sodium Chloride 0.9% 100 ML IVPB SCH (11:05)
[2018-02-02 12:38] LABS: BASO % 0.2 % (0.0-2.0); HEMOGLOBIN 8.8 g/dL (12.0-16.0); LYMPH # 0.2 K/uL (1.0-4.3); MEAN CELL VOLUME 89.6 fl (81.0-99.0); MEAN CORPUSCULAR HEMOGLOBIN 28.8 pg (27.0-31.0); MEAN CORPUSCULAR HGB CONC 32.2 g/dL (33.0-37.0); MEAN PLATELET VOLUME 8.2 fl (7.2-11.7); MONO # 0.6 K/uL (0.0-0.8); MONO % 3.7 % (0.0-10.0); NEUT # 16.4 K/uL (1.8-7.0); NEUT % 95.1 % (50.0-75.0); PLATELET COUNT 201 K/uL (130-400); RBC 3.07 Mil/uL (3.80-5.20); RED CELL DISTRIBUTION WIDTH 14.5 % (11.5-14.5); WHITE BLOOD COUNT 17.3 K/uL (4.8-10.8)
--- NOTE | 2018-02-02 12:40 | RAD ---
Date of service: 02/02/2018 HISTORY: left pleural effusion COMPARISON: 02/01/2018 FINDINGS: LUNGS: Left upper lung zone opacification, unchanged. Right Port-A-Cath tip in place. PLEURA: Left pleural effusion. CARDIOVASCULAR: No aortic atherosclerotic calcification present. Normal cardiac size. No pulmonary vascular congestion. OSSEOUS STRUCTURES: No significant abnormalities. VISUALIZED UPPER ABDOMEN: Normal. OTHER FINDINGS: None. IMPRESSION: No significant change.
[2018-02-02 12:49] LABS: PROTHROMBIN TIME 10.9 Seconds (9.8-13.1)
[2018-02-02 12:52] LABS: PARTIAL THROMBOPLASTIN TIME 24.7 Seconds (25.6-37.1)
[2018-02-02 12:56] LABS: ALBUMIN 2.9 g/dL (3.5-5.0); CALCIUM 7.8 mg/dL (8.4-10.2)
--- NOTE | 2018-02-02 13:19 | CP.CCUPN ---
CCU Subjective - Physician Review Events Since Last Encounter (Free Text): 02/02/18 13:17 alert and awake maintaining O2 sat > 95% on HFO 40 L/m, Bronch tomorrow Had HD yesterday, good urine output, might not need HD anymore CCU Objective - Vital Signs / Intake & Output Vital Signs (Last 4 hours): Vital Signs Temp Pulse Resp BP Pulse Ox 02/02/18 12:43 96 H 138/71 02/02/18 12:42 138/71 02/02/18 12:00 98.3 F 101 H 16 138/71 95 02/02/18 11:21 22 02/02/18 10:11 113 H 131/86 02/02/18 10:00 102 H 17 131/86 96 Intake and Output (Last 8hrs): Intake & Output 02/01/18 02/02/18 02/02/18 22:59 06:59 14:59 Intake Total 575 Output Total 2301 Balance -1726 Intake: IV 475 Intake, Piggyback 100 Output: Urine 300 Urine, Voided 300 Urine/Stool Mix 1 Ultrafiltrate 1999 - Physical Exam Narrative Physical Exam (Free Text): 02/02/18 13:18 P/E Neck: No JVD Lungs: decrease breath sound, left lungs Abdomen non-tender Ext: No edema Heart: No gallop - Medications Active Medications: Active Medications Generic Name Dose Route Start Last Admin Trade Name Freq PRN Reason Stop Dose Admin Acetaminophen 650 mg 01/31/18 20:40 Tylenol 325mg Tab PO Q6 PRN Pain, Mild (1-3) Albuterol/Ipratropium 3 ml 02/01/18 00:00 02/02/18 11:21 Duoneb 3 Mg/0.5 Mg (3 Ml) Ud INH 3 ml RQ4 [facility] Administration Amlodipine Besylate 10 mg 02/01/18 09:00 02/02/18 12:43 Norvasc PO 10 mg DAILY [facility] Administration Bisoprolol Fumarate 10 mg 02/01/18 09:00 02/02/18 12:44 Zebeta PO 10 mg DAILY [facility] Administration Cholecalciferol 1,000 intlu 02/01/18 09:00 02/02/18 12:44 Vitamin D PO 1,000 intlu DAILY [facility] Administration Clotrimazole 1 applic 02/02/18 12:15 02/02/18 12:43 Lotrimin 1% TOP 1 applic BID [facility] Administration Famotidine 40 mg 01/31/18 22:00 02/01/18 21:18 Pepcid PO 40 mg HS L[facility]Z Administration Ferrous Gluconate 324 mg 02/01/18 09:00 02/02/18 12:41 Fergon PO 324 mg DAILY [facility] Administration Furosemide 40 mg 02/01/18 09:00 02/02/18 12:42 Lasix PO 40 mg DAILY [facility] Administration Glipizide 10 mg 02/01/18 09:00 02/02/18 12:41 Glucotrol PO 10 mg DAILY [facility] Administration Fluconazole 50 mls @ 50 mls/hr 02/01/18 09:00 02/02/18 10:13 Diflucan Iv 100 Mg/50 Ml Ns IVPB 50 mls/hr DAILY [facility] Administration Protocol Meropenem 500 mg/ Sodium 100 mls @ 100 mls/hr 02/01/18 09:00 02/02/18 11:05 Chloride IVPB 100 mls/hr Q24H [facility] Administration Protocol Sodium Chloride 1,000 mls @ 80 mls/hr 02/02/18 12:00 Sodium Chloride 0.45% IV 02/03/18 11:56 .[id number] [facility] Insulin Human Lispro 0 units 02/01/18 10:42 02/02/18 12:38 Humalog SC 4 u ACHS [facility] Administration Protocol Isosorbide Mononitrate 30 mg 02/01/18 09:00 02/02/18 12:42 Imdur Er PO 30 mg DAILY [facility] Administration Lidocaine 1 ea 02/01/18 09:00 02/02/18 10:15 Lidoderm TD 1 ea DAILY [facility] Administration Methylprednisolone 10 mg 02/01/18 01:00 02/02/18 10:19 Solu-Medrol IVP 10 mg Q8 [facility] Administration Pravastatin Sodium 40 mg 01/31/18 22:00 02/01/18 21:18 Pravachol PO 40 mg HS [facility] Administration Sitagliptin Phosphate 100 mg 02/01/18 09:00 02/02/18 12:42 Januvia PO 100 mg DAILY [facility] Administration Sucralfate 1 gm 02/01/18 09:00 02/02/18 10:14 Carafate Tab PO Not Given BIDAC [facility]Z - Patient Studies Lab Studies: Lab Studies 02/02/18 02/02/18 02/02/18 Range/Units 12:32 12:32 12:32 WBC 17.3 H (4.8-10.8) K/uL RBC 3.07 L (3.80-5.20) Mil/uL Hgb 8.8 L (12.0-16.0) g/dL Hct 27.5 L (34.0-47.0) % MCV 89.6 (81.0-99.0) fl MCH 28.8 (27.0-31.0) pg MCHC 32.2 L (33.0-37.0) g/dL RDW 14.5 (11.5-14.5) % Plt Count 201 (130-400) K/uL MPV 8.2 (7.2-11.7) fl Neut % (Auto) 95.1 H (50.0-75.0) % Lymph % (Auto) 1.0 L (20.0-40.0) % [place] % (Auto) 3.7 (0.0-10.0) % Eos % (Auto) 0.0 (0.0-4.0) % Baso % (Auto) 0.2 (0.0-2.0) % Neut # (Auto) 16.4 H (1.8-7.0) K/uL Lymph # (Auto) 0.2 L (1.0-4.3) K/uL [place] # (Auto) 0.6 (0.0-0.8) K/uL Eos # (Auto) 0.0 (0.0-0.7) K/uL Baso # (Auto) 0.0 (0.0-0.2) K/uL PT 10.9 (9.8-13.1) Seconds INR 1.0 APTT 24.7 L (25.6-37.1) Seconds Sodium 135 (132-148) mmol/l Potassium 4.1 (3.6-5.0) MMOL/L Chloride 101 (98-107) mmol/L Carbon Dioxide 24 (22-30) mmol/L Anion Gap 14 (10-20) BUN 31 H (7-17) mg/dl Creatinine 1.4 H (0.7-1.2) mg/dl Est GFR ( Amer) 44 Est GFR (Non-Af Amer) 36 POC Glucose (mg/dL) (65-110) mg/dL Random Glucose 216 H (65-105) mg/dL Calcium 7.8 L (8.4-10.2) mg/dL Total Bilirubin 0.4 (0.2-1.3) mg/dl AST 17 (14-36) U/L ALT 28 (9-52) U/L Alkaline Phosphatase 56 (38-126) U/L Total Protein 5.9 L (6.3-8.2) G/DL Albumin 2.9 L (3.5-5.0) g/dL Globulin 2.9 (2.2-3.9) gm/dL Albumin/Globulin Ratio 1.0 (1.0-2.1) 02/02/18 02/01/18 02/01/18 Range/Units 06:01 21:03 16:08 WBC (4.8-10.8) K/uL RBC (3.80-5.20) Mil/uL Hgb (12.0-16.0) g/dL Hct (34.0-47.0) % MCV (81.0-99.0) fl MCH (27.0-31.0) pg MCHC (33.0-37.0) g/dL RDW (11.5-14.5) % Plt Count (130-400) K/uL MPV (7.2-11.7) fl Neut % (Auto) (50.0-75.0) % Lymph % (Auto) (20.0-40.0) % [place] % (Auto) (0.0-10.0) % Eos % (Auto) (0.0-4.0) % Baso % (Auto) (0.0-2.0) % Neut # (Auto) (1.8-7.0) K/uL Lymph # (Auto) (1.0-4.3) K/uL [place] # (Auto) (0.0-0.8) K/uL Eos # (Auto) (0.0-0.7) K/uL Baso # (Auto) (0.0-0.2) K/uL PT (9.8-13.1) Seconds INR APTT (25.6-37.1) Seconds Sodium (132-148) mmol/l Potassium (3.6-5.0) MMOL/L Chloride (98-107) mmol/L Carbon Dioxide (22-30) mmol/L Anion Gap (10-20) BUN (7-17) mg/dl Creatinine (0.7-1.2) mg/dl Est GFR ( Amer) Est GFR (Non-Af Amer) POC Glucose (mg/dL) 180 H 174 H 154 H (65-110) mg/dL Random Glucose (65-105) mg/dL Calcium (8.4-10.2) mg/dL Total Bilirubin (0.2-1.3) mg/dl AST (14-36) U/L ALT (9-52) U/L Alkaline Phosphatase (38-126) U/L Total Protein (6.3-8.2) G/DL Albumin (3.5-5.0) g/dL Globulin (2.2-3.9) gm/dL Albumin/Globulin Ratio (1.0-2.1) 02/01/18 Range/Units 11:06 WBC (4.8-10.8) K/uL RBC (3.80-5.20) Mil/uL Hgb (12.0-16.0) g/dL Hct (34.0-47.0) % MCV (81.0-99.0) fl MCH (27.0-31.0) pg MCHC (33.0-37.0) g/dL RDW (11.5-14.5) % Plt Count (130-400) K/uL MPV (7.2-11.7) fl Neut % (Auto) (50.0-75.0) % Lymph % (Auto) (20.0-40.0) % [place] % (Auto) (0.0-10.0) % Eos % (Auto) (0.0-4.0) % Baso % (Auto) (0.0-2.0) % Neut # (Auto) (1.8-7.0) K/uL Lymph # (Auto) (1.0-4.3) K/uL [place] # (Auto) (0.0-0.8) K/uL Eos # (Auto) (0.0-0.7) K/uL Baso # (Auto) (0.0-0.2) K/uL PT (9.8-13.1) Seconds INR APTT (25.6-37.1) Seconds Sodium (132-148) mmol/l Potassium (3.6-5.0) MMOL/L Chloride (98-107) mmol/L Carbon Dioxide (22-30) mmol/L Anion Gap (10-20) BUN (7-17) mg/dl Creatinine (0.7-1.2) mg/dl Est GFR ( Amer) Est GFR (Non-Af Amer) POC Glucose (mg/dL) 226 H (65-110) mg/dL Random Glucose (65-105) mg/dL Calcium (8.4-10.2) mg/dL Total Bilirubin (0.2-1.3) mg/dl AST (14-36) U/L ALT (9-52) U/L Alkaline Phosphatase (38-126) U/L Total Protein (6.3-8.2) G/DL Albumin (3.5-5.0) g/dL Globulin (2.2-3.9) gm/dL Albumin/Globulin Ratio (1.0-2.1) Laboratory Results - last 24 hr 02/01/18 02/01/18 02/01/18 11:06 16:08 21:03 WBC RBC Hgb Hct MCV MCH MCHC RDW Plt Count MPV Neut % (Auto) Lymph % (Auto) [place] % (Auto) Eos % (Auto) Baso % (Auto) Neut # (Auto) Lymph # (Auto) [place] # (Auto) Eos # (Auto) Baso # (Auto) PT INR APTT Sodium Potassium Chloride Carbon Dioxide Anion Gap BUN Creatinine Est GFR ( Amer) Est GFR (Non-Af Amer) POC Glucose (mg/dL) 226 H 154 H 174 H Random Glucose Calcium Total Bilirubin AST ALT Alkaline Phosphatase Total Protein Albumin Globulin Albumin/Globulin Ratio 02/02/18 02/02/18 02/02/18 06:01 12:32 12:32 WBC 17.3 H RBC 3.07 L Hgb 8.8 L Hct 27.5 L MCV 89.6 MCH 28.8 MCHC 32.2 L RDW 14.5 Plt Count 201 MPV 8.2 Neut % (Auto) 95.1 H Lymph % (Auto) 1.0 L [place] % (Auto) 3.7 Eos % (Auto) 0.0 Baso % (Auto) 0.2 Neut # (Auto) 16.4 H Lymph # (Auto) 0.2 L [place] # (Auto) 0.6 Eos # (Auto) 0.0 Baso # (Auto) 0.0 PT 10.9 INR 1.0 APTT 24.7 L Sodium Potassium Chloride Carbon Dioxide Anion Gap BUN Creatinine Est GFR ( Amer) Est GFR (Non-Af Amer) POC Glucose (mg/dL) 180 H Random Glucose Calcium Total Bilirubin AST ALT Alkaline Phosphatase Total Protein Albumin Globulin Albumin/Globulin Ratio 02/02/18 12:32 WBC RBC Hgb Hct MCV MCH MCHC RDW Plt Count MPV Neut % (Auto) Lymph % (Auto) [place] % (Auto) Eos % (Auto) Baso % (Auto) Neut # (Auto) Lymph # (Auto) [place] # (Auto) Eos # (Auto) Baso # (Auto) PT INR APTT Sodium 135 Potassium 4.1 Chloride 101 Carbon Dioxide 24 Anion Gap 14 BUN 31 H Creatinine 1.4 H Est GFR ( Amer) 44 Est GFR (Non-Af Amer) 36 POC Glucose (mg/dL) Random Glucose 216 H Calcium 7.8 L Total Bilirubin 0.4 AST 17 ALT 28 Alkaline Phosphatase 56 Total Protein 5.9 L Albumin 2.9 L Globulin 2.9 Albumin/Globulin Ratio 1.0 Fingerstick Blood Sugar Results: 205 Critical Care Progress Note - Nutrition Nutrition: Nutrition Category Date Time Status NPO Diet [DIET] Diets 02/03/18 Breakfast Active Renal Diet [DIET] Diets 02/02/18 Breakfast Active Assessment/Plan - Assessment and Plan (Free Text) Assessment: IMPRESSION / MAJOR PROBLEMS NOW: 1. 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 vs other Metabolic etiology. 2. Acute resp Insuff 2 Multi-lobar Pneumonia / bilateral effusion, left lung atelactasis ALEJA and LML 3. CAMPBELL leading to ARF, on HD , had HD yesterday, renal function improving 4. Uncontrolled DM II 5. LBP syndrome PLAN: 1. On HFOx, 40 L/M. 2. Bronch tomorrow 3- Had HD yesterday, renal following,, might not need now onward. 3. Try to maintain better glycemic control. 4. No Advance Directives, full Code status.
--- NOTE | 2018-02-02 13:30 | CP.PCM.PN ---
Subjective - Date & Time of Evaluation Date of Evaluation: 02/02/18 Time of Evaluation: 13:30 - Subjective Subjective: pt still c/o severe cough , mostly dry, no cp, occ dizzy Objective - Vital Signs/Intake and Output Vital Signs (last 24 hours): Temp Pulse Resp BP Pulse Ox 98.3 F 96 H 16 138/71 95 02/02/18 12:00 02/02/18 12:43 02/02/18 12:00 02/02/18 12:43 02/02/18 12:00 - Medications Medications: Current Medications Acetaminophen (Tylenol 325mg Tab) 650 mg PO Q6 PRN PRN Reason: Pain, Mild (1-3) Albuterol/Ipratropium (Duoneb 3 Mg/0.5 Mg (3 Ml) Ud) 3 ml INH RQ4 [facility] Last Admin: 02/02/18 11:21 Dose: 3 ml Amlodipine Besylate (Norvasc) 10 mg PO DAILY [facility] Last Admin: 02/02/18 12:43 Dose: 10 mg Bisoprolol Fumarate (Zebeta) 10 mg PO DAILY [facility] Last Admin: 02/02/18 12:44 Dose: 10 mg Cholecalciferol (Vitamin D) 1,000 intlu PO DAILY [facility] Last Admin: 02/02/18 12:44 Dose: 1,000 intlu Clotrimazole (Lotrimin 1%) 1 applic TOP BID [facility] Last Admin: 02/02/18 12:43 Dose: 1 applic Famotidine (Pepcid) 40 mg PO HS [facility] Last Admin: 02/01/18 21:18 Dose: 40 mg Ferrous Gluconate (Fergon) 324 mg PO DAILY [facility] Last Admin: 02/02/18 12:41 Dose: 324 mg Furosemide (Lasix) 40 mg PO DAILY [facility] Last Admin: 02/02/18 12:42 Dose: 40 mg Glipizide (Glucotrol) 10 mg PO DAILY [facility] Last Admin: 02/02/18 12:41 Dose: 10 mg Fluconazole (Diflucan Iv 100 Mg/50 Ml Ns) 50 mls @ 50 mls/hr IVPB DAILY [facility]; Protocol Last Admin: 02/02/18 10:13 Dose: 50 mls/hr Meropenem 500 mg/ Sodium (Chloride) 100 mls @ 100 mls/hr IVPB Q24H [facility]; Protocol Last Admin: 02/02/18 11:05 Dose: 100 mls/hr Sodium Chloride (Sodium Chloride 0.45%) 1,000 mls @ 80 mls/hr IV .[id number] [facility] Stop: 02/03/18 11:56 Insulin Human Lispro (Humalog) 0 units SC ACHS [facility]; Protocol Last Admin: 02/02/18 12:38 Dose: 4 u Isosorbide Mononitrate (Imdur Er) 30 mg PO DAILY [facility] Last Admin: 02/02/18 12:42 Dose: 30 mg Lidocaine (Lidoderm) 1 ea TD DAILY [facility] Last Admin: 02/02/18 10:15 Dose: 1 ea Methylprednisolone (Solu-Medrol) 10 mg IVP Q8 [facility] Last Admin: 02/02/18 10:19 Dose: 10 mg Pravastatin Sodium (Pravachol) 40 mg PO HS [facility] Last Admin: 02/01/18 21:18 Dose: 40 mg Sitagliptin Phosphate (Januvia) 100 mg PO DAILY [facility] Last Admin: 02/02/18 12:42 Dose: 100 mg Sucralfate (Carafate Tab) 1 gm PO BIDAC [facility] Last Admin: 02/02/18 10:14 Dose: Not Given - Labs Labs: 02/02/18 12:32 02/02/18 12:32 PT 10.9 Seconds (9.8-13.1) 02/02/18 12:32 INR 1.0 02/02/18 12:32 APTT 24.7 Seconds (25.6-37.1) L 02/02/18 12:32 - Constitutional Appears: Well, Non-toxic, No Acute Distress - Head Exam Head Exam: ATRAUMATIC, NORMAL INSPECTION - Eye Exam Eye Exam: EOMI, Normal appearance, PERRL Pupil Exam: NORMAL ACCOMODATION - ENT Exam ENT Exam: Mucous Membranes Moist - Neck Exam Neck Exam: Full ROM, Normal Inspection - Respiratory Exam Respiratory Exam: Wheezes, NORMAL BREATHING PATTERN - Cardiovascular Exam Cardiovascular Exam: REGULAR RHYTHM, +S1, +S2 - GI/Abdominal Exam GI & Abdominal Exam: Soft, Normal Bowel Sounds - Rectal Exam Rectal Exam: Deferred - Neurological Exam Neurological Exam: Alert, Awake, CN II-XII Intact, Oriented x3 - Skin Skin Exam: Normal Color, Warm Assessment and Plan - Assessment and Plan (Free Text) Assessment: 78 yo HF with pmh/o htn, dm hld, chf, copd, ? spinal stenosis, ckd with sob, being treated for mycoplasma pneumonia with b/l infiltrates, AMS this am, s/p [employer], pt is more alert, awake 1. Luís on ckd-3 2. htn 3. Mycoplasma pneumonia 4. DM 5. AMS, s/p [employer] b/l pneumonia, ? white out on left side follow up pulmonary , chest physical therapy, c/w IV ABx as per ID, renal function is stable. will hold hd , monitor bmp daily consider chest PT, mucinex
[2018-02-02 15:02] LABS: ANISOCYTOSIS SLIGHT; LYMPHOCYTE 5 % (20-50); MONOCYTE 3 % (0-10); NEUTROPHIL 92 % (42-75); PLATELET ESTIMATE NORMAL (NORMAL); TOTAL CELLS COUNTED 100
[2018-02-02 15:03] LABS: LARGE PLATELETS PRESENT; OVALOCYTES MODERATE
[2018-02-02] MEDS: guaiFENesin-DM 600-30 mg ER Tab PO SCH (18:14)
--- NOTE | 2018-02-02 18:32 | CP.PCM.PN ---
Subjective - Date & Time of Evaluation Date of Evaluation: 02/02/18 - Subjective Subjective: Awake, smiling, no A/D, answer questions, sitting in a chair on high flow O2. Objective - Vital Signs/Intake and Output Vital Signs (last 24 hours): Temp Pulse Resp BP Pulse Ox 98.5 F 87 21 113/75 96 02/02/18 16:00 02/02/18 16:00 02/02/18 15:11 02/02/18 16:00 02/02/18 16:00 - Medications Medications: Current Medications Acetaminophen (Tylenol 325mg Tab) 650 mg PO Q6 PRN PRN Reason: Pain, Mild (1-3) Albuterol/Ipratropium (Duoneb 3 Mg/0.5 Mg (3 Ml) Ud) 3 ml INH RQ4 [facility] Last Admin: 02/02/18 15:11 Dose: 3 ml Amlodipine Besylate (Norvasc) 10 mg PO DAILY [facility] Last Admin: 02/02/18 12:43 Dose: 10 mg Bisoprolol Fumarate (Zebeta) 10 mg PO DAILY [facility] Last Admin: 02/02/18 12:44 Dose: 10 mg Cholecalciferol (Vitamin D) 1,000 intlu PO DAILY [facility] Last Admin: 02/02/18 12:44 Dose: 1,000 intlu Clotrimazole (Lotrimin 1%) 1 applic TOP BID [facility] Last Admin: 02/02/18 18:12 Dose: 1 applic Famotidine (Pepcid) 40 mg PO HS [facility] Last Admin: 02/01/18 21:18 Dose: 40 mg Ferrous Gluconate (Fergon) 324 mg PO DAILY [facility] Last Admin: 02/02/18 12:41 Dose: 324 mg Furosemide (Lasix) 40 mg PO DAILY [facility] Last Admin: 02/02/18 12:42 Dose: 40 mg Glipizide (Glucotrol) 10 mg PO DAILY [facility] Last Admin: 02/02/18 12:41 Dose: 10 mg Guaifenesin/Dextromethorphan (Mucinex-Dm 600-30 Mg) 1 tab PO BID [facility] Last Admin: 02/02/18 18:14 Dose: 1 tab Fluconazole (Diflucan Iv 100 Mg/50 Ml Ns) 50 mls @ 50 mls/hr IVPB DAILY [facility]; Protocol Last Admin: 02/02/18 10:13 Dose: 50 mls/hr Meropenem 500 mg/ Sodium (Chloride) 100 mls @ 100 mls/hr IVPB Q24H [facility]; Protocol Last Admin: 02/02/18 11:05 Dose: 100 mls/hr Sodium Chloride (Sodium Chloride 0.45%) 1,000 mls @ 80 mls/hr IV .[id number] [facility] Stop: 02/03/18 11:56 Insulin Human Lispro (Humalog) 0 units SC ACHS [facility]; Protocol Last Admin: 02/02/18 18:10 Dose: 6 u Isosorbide Mononitrate (Imdur Er) 30 mg PO DAILY [facility] Last Admin: 02/02/18 12:42 Dose: 30 mg Lidocaine (Lidoderm) 1 ea TD DAILY [facility] Last Admin: 02/02/18 10:15 Dose: 1 ea Methylprednisolone (Solu-Medrol) 10 mg IVP Q8 [facility] Last Admin: 02/02/18 18:13 Dose: 10 mg Pravastatin Sodium (Pravachol) 40 mg PO HS [facility] Last Admin: 02/01/18 21:18 Dose: 40 mg Sitagliptin Phosphate (Januvia) 100 mg PO DAILY [facility] Last Admin: 02/02/18 12:42 Dose: 100 mg Sucralfate (Carafate Tab) 1 gm PO BIDAC [facility] Last Admin: 02/02/18 18:10 Dose: 1 gm - Labs Labs: 02/02/18 12:32 02/02/18 12:32 PT 10.9 Seconds (9.8-13.1) 02/02/18 12:32 INR 1.0 02/02/18 12:32 APTT 24.7 Seconds (25.6-37.1) L 02/02/18 12:32 - Constitutional Appears: No Acute Distress, Chronically Ill - Head Exam Head Exam: NORMAL INSPECTION - Eye Exam Eye Exam: PERRL - ENT Exam ENT Exam: Normal Exam - Neck Exam Neck Exam: Normal Inspection - Respiratory Exam Respiratory Exam: Decreased Breath Sounds (at bases), Rhonchi (few at bases) - Cardiovascular Exam Cardiovascular Exam: REGULAR RHYTHM - GI/Abdominal Exam GI & Abdominal Exam: Soft, Normal Bowel Sounds - Extremities Exam Additional comments: RUE PICC line in place. - Neurological Exam Neurological Exam: Alert, CN II-XII Intact Additional comments: Follows commands, no focal motor/sensory deficit, generalized weakness. - Psychiatric Exam Psychiatric exam: Normal Mood - Skin Skin Exam: Warm Assessment and Plan (1) Pneumonia Status: Acute (2) COPD exacerbation Status: Acute (3) Respiratory failure with hypercapnia Status: Acute (4) Change in mental status Status: Resolved - Assessment and Plan (Free Text) Plan: CXR today, left upper lobe collapse from previous CXR, no changes. Bronchoscopy tomorrow in AM. Critical care time: 33 min.
--- NOTE | 2018-02-02 18:41 | PN ---
DATE: 02/02/2018 SUBJECTIVE: The patient seen and examined. Interim events noted. The patient admitted in intensive care unit. Consults noted and appreciated. The patient is sleeping, arousable. Feels okay. Denied any specific complaint of chest pain or shortness of breath at rest. PHYSICAL EXAMINATION: GENERAL: The patient is in no acute distress. VITAL SIGNS: Stable. HEART: S1, S2 normal and regular. LUNGS: Good bilateral air exchange. ABDOMEN: Soft, nontender. EXTREMITIES: No edema. No calf swelling. No tenderness. No acute ischemia. 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 Dialysis catheter sites and IV sites are in good position, without any complication. DIAGNOSTIC DATA: Available diagnostic data reviewed. Telemetry monitoring does not show significant arrhythmias. Chest x-ray still shows persistent effusion and atelectasis. ASSESSMENT AND PLAN: Pneumonia is resolved and plan as ordered. Case and plan discussed with the patient and beater boss. Manpreet Austin MD
[2018-02-02] MEDS: Pravastatin Sodium 40 MG TAB PO SCH (21:24)
[2018-02-03] MEDS: MethylPREDNISolone 40 mg Vial IVP SCH ×3 (01:00→16:57)
[2018-02-03] MEDS: Sodium Chloride 0.45% 1,000 ML IV SCH (04:47)
[2018-02-03] MEDS: Albuterol-Ipratrop 3 mg / 0.5 (3 ml) UD INH SCH ×5 (05:10→19:12)
[2018-02-03 05:46] LABS: MEAN CELL VOLUME 89.6 fl (81.0-99.0); MEAN CORPUSCULAR HEMOGLOBIN 28.6 pg (27.0-31.0); MEAN CORPUSCULAR HGB CONC 31.9 g/dL (33.0-37.0); RBC 3.14 Mil/uL (3.80-5.20); RED CELL DISTRIBUTION WIDTH 14.5 % (11.5-14.5); WHITE BLOOD COUNT 13.8 K/uL (4.8-10.8)
[2018-02-03 06:13] LABS: ALBUMIN 2.9 g/dL (3.5-5.0); CALCIUM 7.9 mg/dL (8.4-10.2)
[2018-02-03] MEDS: Insulin Lispro (humaLOG) 100 Units/ml Inj SC SCH ×4 (07:04→21:04)
[2018-02-03] MEDS: Fluconazole IV 100mg/50 ml NS 50 ML IVPB SCH (08:23)
[2018-02-03] MEDS: Lidocaine 5% Patch TD SCH (08:27)
[2018-02-03] MEDS: guaiFENesin-DM 600-30 mg ER Tab PO SCH ×2 (08:31→16:56)
[2018-02-03] MEDS: Meropenem 500 MG in Sodium Chloride 0.9% 100 ML IVPB SCH (08:31)
[2018-02-03] MEDS: Cholecalciferol 1,000 INTLU TAB PO SCH ×2 (08:32→13:24)
--- NOTE | 2018-02-03 08:48 | RAD ---
Date of service: 02/03/2018 HISTORY: left pleural effusion, left upper lobe collapse COMPARISON: 02/02/2018 FINDINGS: LUNGS: Pneumatization of the left upper lobe. Diffuse bilateral interstitial infiltrates with consolidation at the left base. PLEURA: Large left pleural effusion. CARDIOVASCULAR: No aortic atherosclerotic calcification present. Normal cardiac size. No pulmonary vascular congestion. OSSEOUS STRUCTURES: No significant abnormalities. VISUALIZED UPPER ABDOMEN: Normal. OTHER FINDINGS: Right nga cath in place. IMPRESSION: Pneumatization of the left upper lobe. Diffuse bilateral interstitial infiltrates with consolidation at the left base.
--- NOTE | 2018-02-03 09:47 | CP.PCM.PN ---
Subjective - Date & Time of Evaluation Date of Evaluation: 02/03/18 - Subjective Subjective: no SOB, mild chest congestion, mild cough with scanty amount of yellowish flegm Objective - Vital Signs/Intake and Output Vital Signs (last 24 hours): Temp Pulse Resp BP Pulse Ox 98 F 82 25 H 143/66 97 02/03/18 07:57 02/03/18 08:31 02/03/18 07:57 02/03/18 08:31 02/03/18 07:57 Intake and Output: 02/03/18 02/03/18 06:59 18:59 Intake Total Balance - Medications Medications: Current Medications Acetaminophen (Tylenol 325mg Tab) 650 mg PO Q6 PRN PRN Reason: Pain, Mild (1-3) Last Admin: 02/02/18 20:36 Dose: 650 mg Albuterol/Ipratropium (Duoneb 3 Mg/0.5 Mg (3 Ml) Ud) 3 ml INH RQ4 [facility] Last Admin: 02/03/18 08:02 Dose: 3 ml Amlodipine Besylate (Norvasc) 10 mg PO DAILY [facility] Last Admin: 02/03/18 08:31 Dose: Not Given Bisoprolol Fumarate (Zebeta) 10 mg PO DAILY [facility] Last Admin: 02/03/18 08:33 Dose: 10 mg Cholecalciferol (Vitamin D) 1,000 intlu PO DAILY [facility] Last Admin: 02/03/18 08:32 Dose: Not Given Clotrimazole (Lotrimin 1%) 1 applic TOP BID [facility] Last Admin: 02/03/18 08:29 Dose: 1 applic Famotidine (Pepcid) 40 mg PO HS [facility] Last Admin: 02/02/18 21:24 Dose: 40 mg Ferrous Gluconate (Fergon) 324 mg PO DAILY [facility] Last Admin: 02/03/18 08:23 Dose: Not Given Furosemide (Lasix) 40 mg PO DAILY [facility] Last Admin: 02/03/18 08:24 Dose: Not Given Glipizide (Glucotrol) 10 mg PO DAILY [facility] Last Admin: 02/03/18 08:23 Dose: Not Given Guaifenesin/Dextromethorphan (Mucinex-Dm 600-30 Mg) 1 tab PO BID [facility] Last Admin: 02/03/18 08:31 Dose: Not Given Fluconazole (Diflucan Iv 100 Mg/50 Ml Ns) 50 mls @ 50 mls/hr IVPB DAILY [facility]; Protocol Last Admin: 02/03/18 08:23 Dose: 50 mls/hr Meropenem 500 mg/ Sodium (Chloride) 100 mls @ 100 mls/hr IVPB Q24H [facility]; Protocol Last Admin: 02/03/18 08:31 Dose: 100 mls/hr Sodium Chloride (Sodium Chloride 0.45%) 1,000 mls @ 80 mls/hr IV .[id number] [facility] Stop: 02/03/18 11:56 Last Admin: 02/03/18 04:47 Dose: 80 mls/hr Insulin Human Lispro (Humalog) 0 units SC ACHS [facility]; Protocol Last Admin: 02/03/18 07:04 Dose: Not Given Isosorbide Mononitrate (Imdur Er) 30 mg PO DAILY [facility] Last Admin: 02/03/18 08:24 Dose: Not Given Lidocaine (Lidoderm) 1 ea TD DAILY [facility] Last Admin: 02/03/18 08:27 Dose: 1 ea Methylprednisolone (Solu-Medrol) 10 mg IVP Q8 [facility] Last Admin: 02/03/18 08:32 Dose: 10 mg Pravastatin Sodium (Pravachol) 40 mg PO HS [facility] Last Admin: 02/02/18 21:24 Dose: 40 mg Sitagliptin Phosphate (Januvia) 100 mg PO DAILY [facility] Last Admin: 02/03/18 08:24 Dose: Not Given Sucralfate (Carafate Tab) 1 gm PO BIDAC [facility] Last Admin: 02/03/18 08:23 Dose: Not Given - Labs Labs: 02/03/18 05:30 02/03/18 05:30 PT 10.9 Seconds (9.8-13.1) 02/02/18 12:32 INR 1.0 02/02/18 12:32 APTT 24.7 Seconds (25.6-37.1) L 02/02/18 12:32 - Constitutional Appears: Chronically Ill - Head Exam Head Exam: NORMAL INSPECTION - Eye Exam Eye Exam: PERRL - ENT Exam ENT Exam: Normal Exam - Neck Exam Neck Exam: Normal Inspection - Respiratory Exam Respiratory Exam: Decreased Breath Sounds (at bases L>R), Rhonchi, Wheezes (scattered) - Cardiovascular Exam Cardiovascular Exam: REGULAR RHYTHM - GI/Abdominal Exam GI & Abdominal Exam: Soft, Normal Bowel Sounds - Extremities Exam Extremities Exam: Normal Inspection - Back Exam Back Exam: NORMAL INSPECTION - Neurological Exam Neurological Exam: Alert, CN II-XII Intact Additional comments: no focal motor sensory deficit - Psychiatric Exam Psychiatric exam: Normal Affect - Skin Skin Exam: Warm Assessment and Plan (1) Pneumonia Status: Acute (2) COPD exacerbation Status: Acute (3) Respiratory failure with hypercapnia Status: Acute (4) Change in mental status Status: Resolved - Assessment and Plan (Free Text) Plan: CXR today resolded AELJA collapse, Large L Pleural effusion, B/L infiltrates, Patient have been off high flow O2 more than one hour and POx 93%, will cancel FOB, CT Chest to asses L PLeural effusion , L base, f/u ABG room air , asses the need of high flow vs O2 NC , sputum C-S Critical care time: 32 min.
[2018-02-03] MEDS ORDERED: Sodium Chloride 3% for Inhalation 4 ML VIAL.NEB IH PRN (10:14)
--- NOTE | 2018-02-03 10:58 | CP.CCUPN ---
CCU Subjective - Physician Review Events Since Last Encounter (Free Text): 02/03/18 10:55 alert and awake, bronch was cancelled On [facility] CCU Objective - Vital Signs / Intake & Output Vital Signs (Last 4 hours): Vital Signs Temp Pulse Resp BP Pulse Ox 02/03/18 08:31 82 143/66 02/03/18 08:24 143/66 02/03/18 07:57 98 F 93 H 25 H 144/83 97 Intake and Output (Last 8hrs): Intake & Output 02/02/18 02/03/18 02/03/18 23:59 06:59 14:59 Intake Total Output Total Balance Intake: IV Intake, Piggyback Output: Urine Urine, Voided Other: # Voids Urine, Voided # Bowel Movements - Physical Exam Narrative Physical Exam (Free Text): 02/03/18 10:56 P/E Neck: No JVD Lungs: left lung, decrease breath sounds , base Heart: No gallop Ext: No edema ABdomen: no tenderness. - Medications Active Medications: Active Medications Generic Name Dose Route Start Last Admin Trade Name Freq PRN Reason Stop Dose Admin Acetaminophen 650 mg 01/31/18 20:40 02/02/18 20:36 Tylenol 325mg Tab PO 650 mg Q6 PRN Administration Pain, Mild (1-3) Albuterol/Ipratropium 3 ml 02/01/18 00:00 02/03/18 08:02 Duoneb 3 Mg/0.5 Mg (3 Ml) Ud INH 3 ml RQ4 [facility] Administration Amlodipine Besylate 10 mg 02/01/18 09:00 02/03/18 08:31 Norvasc PO Not Given DAILY [facility] Bisoprolol Fumarate 10 mg 02/01/18 09:00 02/03/18 08:33 Zebeta PO 10 mg DAILY [facility] Administration Cholecalciferol 1,000 intlu 02/01/18 09:00 02/03/18 08:32 Vitamin D PO Not Given DAILY [facility] Clotrimazole 1 applic 02/02/18 12:15 02/03/18 08:29 Lotrimin 1% TOP 1 applic BID [facility] Administration Famotidine 40 mg 01/31/18 22:00 02/02/18 21:24 Pepcid PO 40 mg HS [facility] Administration Ferrous Gluconate 324 mg 02/01/18 09:00 02/03/18 08:23 Fergon PO Not Given DAILY [facility] Furosemide 40 mg 02/01/18 09:00 02/03/18 08:24 Lasix PO Not Given DAILY [facility] Glipizide 10 mg 02/01/18 09:00 02/03/18 08:23 Glucotrol PO Not Given DAILY [facility] Guaifenesin/Dextromethorphan 1 tab 02/02/18 17:00 02/03/18 08:31 Mucinex-Dm 600-30 Mg PO Not Given BID [facility] Fluconazole 50 mls @ 50 mls/hr 02/01/18 09:00 02/03/18 08:23 Diflucan Iv 100 Mg/50 Ml Ns IVPB 50 mls/hr DAILY [facility] Administration Protocol Meropenem 500 mg/ Sodium 100 mls @ 100 mls/hr 02/01/18 09:00 02/03/18 08:31 Chloride IVPB 100 mls/hr Q24H [facility] Administration Protocol Sodium Chloride 1,000 mls @ 80 mls/hr 02/02/18 12:00 02/03/18 04:47 Sodium Chloride 0.45% IV 02/03/18 11:56 80 mls/hr .[id number] [facility] Administration Insulin Human Lispro 0 units 02/01/18 10:42 02/03/18 07:04 Humalog SC Not Given ACHS [facility] Protocol Isosorbide Mononitrate 30 mg 02/01/18 09:00 02/03/18 08:24 Imdur Er PO Not Given DAILY [facility] Lidocaine 1 ea 02/01/18 09:00 02/03/18 08:27 Lidoderm TD 1 ea DAILY [facility] Administration Methylprednisolone 10 mg 02/01/18 01:00 02/03/18 08:32 Solu-Medrol IVP 10 mg Q8 [facility] Administration Pravastatin Sodium 40 mg 01/31/18 22:00 02/02/18 21:24 Pravachol PO 40 mg HS [facility] Administration Sitagliptin Phosphate 100 mg 02/01/18 09:00 02/03/18 08:24 Januvia PO Not Given DAILY [facility] Sucralfate 1 gm 02/01/18 09:00 02/03/18 08:23 Carafate Tab PO Not Given BIDAC [facility] - Patient Studies Lab Studies: Lab Studies 11/04/18 11/04/18 11/03/18 Range/Units 05:30 05:30 21:07 WBC 13.8 H (4.8-10.8) K/uL RBC 3.14 L (3.80-5.20) Mil/uL Hgb 9.0 L (12.0-16.0) g/dL Hct 28.2 L (34.0-47.0) % MCV 89.6 (81.0-99.0) fl MCH 28.6 (27.0-31.0) pg MCHC 31.9 L (33.0-37.0) g/dL RDW 14.5 (11.5-14.5) % Plt Count 203 (130-400) K/uL MPV (7.2-11.7) fl Neut % (Auto) (50.0-75.0) % Lymph % (Auto) (20.0-40.0) % [place] % (Auto) (0.0-10.0) % Eos % (Auto) (0.0-4.0) % Baso % (Auto) (0.0-2.0) % Neut # (Auto) (1.8-7.0) K/uL Lymph # (Auto) (1.0-4.3) K/uL [place] # (Auto) (0.0-0.8) K/uL Eos # (Auto) (0.0-0.7) K/uL Baso # (Auto) (0.0-0.2) K/uL Neutrophils % (Manual) (42-75) % Lymphocytes % (Manual) (20-50) % Monocytes % (Manual) (0-10) % Platelet Estimate (NORMAL) Large Platelets Anisocytosis (manual) Macrocytosis (manual) Ovalocytes PT (9.8-13.1) Seconds INR APTT (25.6-37.1) Seconds Sodium 135 (132-148) mmol/l Potassium 3.9 (3.6-5.0) MMOL/L Chloride 100 (98-107) mmol/L Carbon Dioxide 26 (22-30) mmol/L Anion Gap 13 (10-20) BUN 42 H (7-17) mg/dl Creatinine 1.5 H (0.7-1.2) mg/dl Est GFR ( Amer) 41 Est GFR (Non-Af Amer) 33 POC Glucose (mg/dL) 272 H (65-110) mg/dL Random Glucose 214 H (65-105) mg/dL Calcium 7.9 L (8.4-10.2) mg/dL Total Bilirubin 0.4 (0.2-1.3) mg/dl AST 27 (14-36) U/L ALT 33 (9-52) U/L Alkaline Phosphatase 55 (38-126) U/L Total Protein 5.9 L (6.3-8.2) G/DL Albumin 2.9 L (3.5-5.0) g/dL Globulin 3.0 (2.2-3.9) gm/dL Albumin/Globulin Ratio 1.0 (1.0-2.1) 02/02/18 02/02/18 02/02/18 Range/Units 16:52 12:32 12:32 WBC (4.8-10.8) K/uL RBC (3.80-5.20) Mil/uL Hgb (12.0-16.0) g/dL Hct (34.0-47.0) % MCV (81.0-99.0) fl MCH (27.0-31.0) pg MCHC (33.0-37.0) g/dL RDW (11.5-14.5) % Plt Count (130-400) K/uL MPV (7.2-11.7) fl Neut % (Auto) (50.0-75.0) % Lymph % (Auto) (20.0-40.0) % [place] % (Auto) (0.0-10.0) % Eos % (Auto) (0.0-4.0) % Baso % (Auto) (0.0-2.0) % Neut # (Auto) (1.8-7.0) K/uL Lymph # (Auto) (1.0-4.3) K/uL [place] # (Auto) (0.0-0.8) K/uL Eos # (Auto) (0.0-0.7) K/uL Baso # (Auto) (0.0-0.2) K/uL Neutrophils % (Manual) (42-75) % Lymphocytes % (Manual) (20-50) % Monocytes % (Manual) (0-10) % Platelet Estimate (NORMAL) Large Platelets Anisocytosis (manual) Macrocytosis (manual) Ovalocytes PT 10.9 (9.8-13.1) Seconds INR 1.0 APTT 24.7 L (25.6-37.1) Seconds Sodium 135 (132-148) mmol/l Potassium 4.1 (3.6-5.0) MMOL/L Chloride 101 (98-107) mmol/L Carbon Dioxide 24 (22-30) mmol/L Anion Gap 14 (10-20) BUN 31 H (7-17) mg/dl Creatinine 1.4 H (0.7-1.2) mg/dl Est GFR ( Amer) 44 Est GFR (Non-Af Amer) 36 POC Glucose (mg/dL) 289 H (65-110) mg/dL Random Glucose 216 H (65-105) mg/dL Calcium 7.8 L (8.4-10.2) mg/dL Total Bilirubin 0.4 (0.2-1.3) mg/dl AST 17 (14-36) U/L ALT 28 (9-52) U/L Alkaline Phosphatase 56 (38-126) U/L Total Protein 5.9 L (6.3-8.2) G/DL Albumin 2.9 L (3.5-5.0) g/dL Globulin 2.9 (2.2-3.9) gm/dL Albumin/Globulin Ratio 1.0 (1.0-2.1) 02/02/18 02/02/18 Range/Units 12:32 11:11 WBC 17.3 H (4.8-10.8) K/uL RBC 3.07 L (3.80-5.20) Mil/uL Hgb 8.8 L (12.0-16.0) g/dL Hct 27.5 L (34.0-47.0) % MCV 89.6 (81.0-99.0) fl MCH 28.8 (27.0-31.0) pg MCHC 32.2 L (33.0-37.0) g/dL RDW 14.5 (11.5-14.5) % Plt Count 201 (130-400) K/uL MPV 8.2 (7.2-11.7) fl Neut % (Auto) 95.1 H (50.0-75.0) % Lymph % (Auto) 1.0 L (20.0-40.0) % [place] % (Auto) 3.7 (0.0-10.0) % Eos % (Auto) 0.0 (0.0-4.0) % Baso % (Auto) 0.2 (0.0-2.0) % Neut # (Auto) 16.4 H (1.8-7.0) K/uL Lymph # (Auto) 0.2 L (1.0-4.3) K/uL [place] # (Auto) 0.6 (0.0-0.8) K/uL Eos # (Auto) 0.0 (0.0-0.7) K/uL Baso # (Auto) 0.0 (0.0-0.2) K/uL Neutrophils % (Manual) 92 H (42-75) % Lymphocytes % (Manual) 5 L (20-50) % Monocytes % (Manual) 3 (0-10) % Platelet Estimate Normal (NORMAL) Large Platelets Present Anisocytosis (manual) Slight Macrocytosis (manual) Slight Ovalocytes Moderate PT (9.8-13.1) Seconds INR APTT (25.6-37.1) Seconds Sodium (132-148) mmol/l Potassium (3.6-5.0) MMOL/L Chloride (98-107) mmol/L Carbon Dioxide (22-30) mmol/L Anion Gap (10-20) BUN (7-17) mg/dl Creatinine (0.7-1.2) mg/dl Est GFR ( Amer) Est GFR (Non-Af Amer) POC Glucose (mg/dL) 205 H (65-110) mg/dL Random Glucose (65-105) mg/dL Calcium (8.4-10.2) mg/dL Total Bilirubin (0.2-1.3) mg/dl AST (14-36) U/L ALT (9-52) U/L Alkaline Phosphatase (38-126) U/L Total Protein (6.3-8.2) G/DL Albumin (3.5-5.0) g/dL Globulin (2.2-3.9) gm/dL Albumin/Globulin Ratio (1.0-2.1) Laboratory Results - last 24 hr 11/03/18 11/03/18 11/03/18 11:11 12:32 12:32 WBC 17.3 H RBC 3.07 L Hgb 8.8 L Hct 27.5 L MCV 89.6 MCH 28.8 MCHC 32.2 L RDW 14.5 Plt Count 201 MPV 8.2 Neut % (Auto) 95.1 H Lymph % (Auto) 1.0 L [place] % (Auto) 3.7 Eos % (Auto) 0.0 Baso % (Auto) 0.2 Neut # (Auto) 16.4 H Lymph # (Auto) 0.2 L [place] # (Auto) 0.6 Eos # (Auto) 0.0 Baso # (Auto) 0.0 Neutrophils % (Manual) 92 H Lymphocytes % (Manual) 5 L Monocytes % (Manual) 3 Platelet Estimate Normal Large Platelets Present Anisocytosis (manual) Slight Macrocytosis (manual) Slight Ovalocytes Moderate PT 10.9 INR 1.0 APTT 24.7 L Sodium Potassium Chloride Carbon Dioxide Anion Gap BUN Creatinine Est GFR ( Amer) Est GFR (Non-Af Amer) POC Glucose (mg/dL) 205 H Random Glucose Calcium Total Bilirubin AST ALT Alkaline Phosphatase Total Protein Albumin Globulin Albumin/Globulin Ratio 02/02/18 02/02/18 02/02/18 12:32 16:52 21:07 WBC RBC Hgb Hct MCV MCH MCHC RDW Plt Count MPV Neut % (Auto) Lymph % (Auto) [place] % (Auto) Eos % (Auto) Baso % (Auto) Neut # (Auto) Lymph # (Auto) [place] # (Auto) Eos # (Auto) Baso # (Auto) Neutrophils % (Manual) Lymphocytes % (Manual) Monocytes % (Manual) Platelet Estimate Large Platelets Anisocytosis (manual) Macrocytosis (manual) Ovalocytes PT INR APTT Sodium 135 Potassium 4.1 Chloride 101 Carbon Dioxide 24 Anion Gap 14 BUN 31 H Creatinine 1.4 H Est GFR ( Amer) 44 Est GFR (Non-Af Amer) 36 POC Glucose (mg/dL) 289 H 272 H Random Glucose 216 H Calcium 7.8 L Total Bilirubin 0.4 AST 17 ALT 28 Alkaline Phosphatase 56 Total Protein 5.9 L Albumin 2.9 L Globulin 2.9 Albumin/Globulin Ratio 1.0 02/03/18 02/03/18 05:30 05:30 WBC 13.8 H RBC 3.14 L Hgb 9.0 L Hct 28.2 L MCV 89.6 MCH 28.6 MCHC 31.9 L RDW 14.5 Plt Count 203 MPV Neut % (Auto) Lymph % (Auto) [place] % (Auto) Eos % (Auto) Baso % (Auto) Neut # (Auto) Lymph # (Auto) [place] # (Auto) Eos # (Auto) Baso # (Auto) Neutrophils % (Manual) Lymphocytes % (Manual) Monocytes % (Manual) Platelet Estimate Large Platelets Anisocytosis (manual) Macrocytosis (manual) Ovalocytes PT INR APTT Sodium 135 Potassium 3.9 Chloride 100 Carbon Dioxide 26 Anion Gap 13 BUN 42 H Creatinine 1.5 H Est GFR ( Amer) 41 Est GFR (Non-Af Amer) 33 POC Glucose (mg/dL) Random Glucose 214 H Calcium 7.9 L Total Bilirubin 0.4 AST 27 ALT 33 Alkaline Phosphatase 55 Total Protein 5.9 L Albumin 2.9 L Globulin 3.0 Albumin/Globulin Ratio 1.0 Fingerstick Blood Sugar Results: 264 Critical Care Progress Note - Nutrition Nutrition: Nutrition Category Date Time Status NPO Diet [DIET] Diets 02/03/18 Breakfast Active Assessment/Plan - Assessment and Plan (Free Text) Assessment: IMPRESSION / MAJOR PROBLEMS NOW: 1. 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 vs other Metabolic etiology. 2. Acute resp Insuff 2 Multi-lobar Pneumonia / bilateral effusion, left lung atelactasis has improved but CT showed bilateral large pleural effusion, more on left 3. CAMPBELL leading to ARF, on HD , had HD yesterday, renal function improving 4. Uncontrolled DM II 5. LBP syndrome PLAN: 1. On HFOx, 40 L/M. 2. Bronch cancelled, will need thoracentesis 3- Had HD on Sunday, renal following improving , might not need now onward. 3. Try to maintain better glycemic control. 4. No Advance Directives, full Code status.
--- NOTE | 2018-02-03 11:11 | CT ---
Date of service: 02/03/2018 PROCEDURE: CT Chest without contrast HISTORY: L Pleural effusion, PNA COMPARISON: 01/29/2018 TECHNIQUE: Contiguous axial images were obtained through the chest without intravenous contrast enhancement. Sagittal and coronal reconstructions were performed. Radiation dose: Total exam DLP = 581.12 mGy-cm. This CT exam was performed using one or more of the following dose reduction techniques: Automated exposure control, adjustment of the mA and/or kV according to patient size, and/or use of iterative reconstruction technique. FINDINGS: LUNGS: Interstitial infiltrate in the left upper lobe with alveolar consolidation in the left lower lobe. Resolution of previously noted left upper lobe atelectasis. MEDIASTINUM: Unremarkable thoracic aorta. No aneurysm. Normal sized heart. Main pulmonary artery unremarkable. No vascular congestion. No lymphadenopathy. Aortic calcifications. PLEURA: Mild to moderate bilateral pleural effusions, left greater than right. Compressive atelectasis at the left base. BONES: No fracture. No destructive lesion. UPPER ABDOMEN: Grossly unremarkable. OTHER FINDINGS: Right PICC line in place. IMPRESSION: Interstitial infiltrate in the left upper lobe with alveolar consolidation in the left lower lobe. Resolution of previously noted left upper lobe atelectasis. Mild to moderate bilateral pleural effusions, left greater than right. Compressive atelectasis at the left base.
--- NOTE | 2018-02-03 12:11 | PN ---
DATE: 02/03/2018 SUBJECTIVE: The patient was seen and examined. Interim events noted. Consults noted and appreciated. The patient is for bronchoscopy today. The patient is awake and responsive. Feels okay. Denies any chest pain. No shortness of breath. PHYSICAL EXAMINATION: GENERAL: The patient is in no acute distress. VITAL SIGNS: Stable. HEART: S1 and S2. Normal and regular. LUNGS: Good bilateral air exchange. ABDOMEN: Soft and nontender. EXTREMITIES: No edema. No calf swelling. No tenderness. No acute ischemia. CENTRAL NERVOUS SYSTEM: Essentially unchanged. DIAGNOSTIC DATA: Available diagnostic data reviewed. Telemetry monitoring does not reveal significant arrhythmias. ASSESSMENT AND PLAN: Overall, the patient is clinically stable, for possible bronchoscopy today. Plan as ordered. Manpreet Austin MD
--- NOTE | 2018-02-03 12:24 | CP.PCM.PN ---
Subjective - Date & Time of Evaluation Date of Evaluation: 02/03/18 Time of Evaluation: 12:24 - Subjective Subjective: pt is more alert,awake, not in acute distress, no cp, less cough renal function is stable Objective - Vital Signs/Intake and Output Vital Signs (last 24 hours): Temp Pulse Resp BP Pulse Ox 98 F 88 19 111/68 98 02/03/18 07:57 02/03/18 10:00 02/03/18 10:00 02/03/18 10:00 02/03/18 10:00 Intake and Output: 02/03/18 02/03/18 06:59 18:59 Intake Total Balance - Medications Medications: Current Medications Acetaminophen (Tylenol 325mg Tab) 650 mg PO Q6 PRN PRN Reason: Pain, Mild (1-3) Last Admin: 02/02/18 20:36 Dose: 650 mg Albuterol/Ipratropium (Duoneb 3 Mg/0.5 Mg (3 Ml) Ud) 3 ml INH RQ4 [facility] Last Admin: 02/03/18 11:50 Dose: 3 ml Amlodipine Besylate (Norvasc) 10 mg PO DAILY [facility] Last Admin: 02/03/18 08:31 Dose: Not Given Bisoprolol Fumarate (Zebeta) 10 mg PO DAILY [facility] Last Admin: 02/03/18 08:33 Dose: 10 mg Cholecalciferol (Vitamin D) 1,000 intlu PO DAILY [facility] Last Admin: 02/03/18 08:32 Dose: Not Given Clotrimazole (Lotrimin 1%) 1 applic TOP BID [facility] Last Admin: 02/03/18 08:29 Dose: 1 applic Famotidine (Pepcid) 40 mg PO HS [facility] Last Admin: 02/02/18 21:24 Dose: 40 mg Ferrous Gluconate (Fergon) 324 mg PO DAILY [facility] Last Admin: 02/03/18 08:23 Dose: Not Given Furosemide (Lasix) 40 mg PO DAILY [facility] Last Admin: 02/03/18 08:24 Dose: Not Given Glipizide (Glucotrol) 10 mg PO DAILY [facility] Last Admin: 02/03/18 08:23 Dose: Not Given Guaifenesin/Dextromethorphan (Mucinex-Dm 600-30 Mg) 1 tab PO BID [facility] Last Admin: 02/03/18 08:31 Dose: Not Given Fluconazole (Diflucan Iv 100 Mg/50 Ml Ns) 50 mls @ 50 mls/hr IVPB DAILY [facility]; Protocol Last Admin: 02/03/18 08:23 Dose: 50 mls/hr Meropenem 500 mg/ Sodium (Chloride) 100 mls @ 100 mls/hr IVPB Q24H [facility]; Protocol Last Admin: 02/03/18 08:31 Dose: 100 mls/hr Insulin Human Lispro (Humalog) 0 units SC ACHS [facility]; Protocol Last Admin: 02/03/18 07:04 Dose: Not Given Isosorbide Mononitrate (Imdur Er) 30 mg PO DAILY [facility] Last Admin: 02/03/18 08:24 Dose: Not Given Lidocaine (Lidoderm) 1 ea TD DAILY [facility] Last Admin: 02/03/18 08:27 Dose: 1 ea Methylprednisolone (Solu-Medrol) 10 mg IVP Q8 [facility] Last Admin: 02/03/18 08:32 Dose: 10 mg Pravastatin Sodium (Pravachol) 40 mg PO HS [facility] Last Admin: 02/02/18 21:24 Dose: 40 mg Sitagliptin Phosphate (Januvia) 100 mg PO DAILY [facility] Last Admin: 02/03/18 08:24 Dose: Not Given Sucralfate (Carafate Tab) 1 gm PO BIDAC [facility] Last Admin: 02/03/18 08:23 Dose: Not Given - Labs Labs: 02/03/18 05:30 02/03/18 05:30 PT 10.9 Seconds (9.8-13.1) 02/02/18 12:32 INR 1.0 02/02/18 12:32 APTT 24.7 Seconds (25.6-37.1) L 02/02/18 12:32 - Constitutional Appears: Well, Non-toxic, No Acute Distress - Head Exam Head Exam: ATRAUMATIC, NORMAL INSPECTION, NORMOCEPHALIC - Eye Exam Eye Exam: EOMI, Normal appearance, PERRL Pupil Exam: NORMAL ACCOMODATION - ENT Exam ENT Exam: Mucous Membranes Moist - Neck Exam Neck Exam: Full ROM, Normal Inspection - Respiratory Exam Respiratory Exam: Clear to Ausculation Bilateral, NORMAL BREATHING PATTERN - Cardiovascular Exam Cardiovascular Exam: REGULAR RHYTHM, +S1, +S2 - Rectal Exam Rectal Exam: Deferred - Extremities Exam Extremities Exam: Normal Inspection Additional comments: no edema of legs - Neurological Exam Neurological Exam: Alert, Awake, CN II-XII Intact, Normal Gait Additional comments: oriented x2-3 - Skin Skin Exam: Intact, Normal Color, Warm Assessment and Plan - Assessment and Plan (Free Text) Assessment: 78 yo HF with pmh/o htn, dm hld, chf, copd, ? spinal stenosis, ckd with sob, being treated for mycoplasma pneumonia with b/l infiltrates, AMS this am, s/p [employer], pt is more alert, awake 1. Luís on ckd-3 2. htn 3. Mycoplasma pneumonia 4. DM 5. AMS, s/p [employer] b/l pneumonia, white out on left side, improving follow up pulmonary , chest physical therapy, c/w IV ABx as per ID, renal function is stable. will hold hd , monitor bmp daily consider chest PT, [facility] physical therapy evaluation
--- NOTE | 2018-02-03 12:45 | CP.PCM.PN ---
Subjective - Date & Time of Evaluation Date of Evaluation: 02/03/18 Time of Evaluation: 08:00 - Subjective Subjective: lethargic nad afeb on iv rx as per Dr Kinsey Objective - Vital Signs/Intake and Output Vital Signs (last 24 hours): Temp Pulse Resp BP Pulse Ox 98 F 88 19 111/68 98 02/03/18 07:57 02/03/18 10:00 02/03/18 10:00 02/03/18 10:00 02/03/18 10:00 Intake and Output: 02/03/18 02/03/18 06:59 18:59 Intake Total Balance - Medications Medications: Current Medications Acetaminophen (Tylenol 325mg Tab) 650 mg PO Q6 PRN PRN Reason: Pain, Mild (1-3) Last Admin: 02/02/18 20:36 Dose: 650 mg Albuterol/Ipratropium (Duoneb 3 Mg/0.5 Mg (3 Ml) Ud) 3 ml INH RQ4 [facility] Last Admin: 02/03/18 11:50 Dose: 3 ml Amlodipine Besylate (Norvasc) 10 mg PO DAILY [facility] Last Admin: 02/03/18 08:31 Dose: Not Given Bisoprolol Fumarate (Zebeta) 10 mg PO DAILY [facility] Last Admin: 02/03/18 08:33 Dose: 10 mg Cholecalciferol (Vitamin D) 1,000 intlu PO DAILY [facility] Last Admin: 02/03/18 08:32 Dose: Not Given Clotrimazole (Lotrimin 1%) 1 applic TOP BID [facility] Last Admin: 02/03/18 08:29 Dose: 1 applic Famotidine (Pepcid) 40 mg PO HS [facility] Last Admin: 02/02/18 21:24 Dose: 40 mg Ferrous Gluconate (Fergon) 324 mg PO DAILY [facility] Last Admin: 02/03/18 08:23 Dose: Not Given Furosemide (Lasix) 40 mg PO DAILY [facility] Last Admin: 02/03/18 08:24 Dose: Not Given Glipizide (Glucotrol) 10 mg PO DAILY [facility] Last Admin: 02/03/18 08:23 Dose: Not Given Guaifenesin/Dextromethorphan (Mucinex-Dm 600-30 Mg) 1 tab PO BID [facility] Last Admin: 02/03/18 08:31 Dose: Not Given Fluconazole (Diflucan Iv 100 Mg/50 Ml Ns) 50 mls @ 50 mls/hr IVPB DAILY [facility]; Protocol Last Admin: 02/03/18 08:23 Dose: 50 mls/hr Meropenem 500 mg/ Sodium (Chloride) 100 mls @ 100 mls/hr IVPB Q24H [facility]; Protocol Last Admin: 02/03/18 08:31 Dose: 100 mls/hr Insulin Human Lispro (Humalog) 0 units SC ACHS [facility]; Protocol Last Admin: 02/03/18 07:04 Dose: Not Given Isosorbide Mononitrate (Imdur Er) 30 mg PO DAILY [facility] Last Admin: 02/03/18 08:24 Dose: Not Given Lidocaine (Lidoderm) 1 ea TD DAILY [facility] Last Admin: 02/03/18 08:27 Dose: 1 ea Methylprednisolone (Solu-Medrol) 10 mg IVP Q8 [facility] Last Admin: 02/03/18 08:32 Dose: 10 mg Pravastatin Sodium (Pravachol) 40 mg PO HS [facility] Last Admin: 02/02/18 21:24 Dose: 40 mg Sitagliptin Phosphate (Januvia) 100 mg PO DAILY [facility] Last Admin: 02/03/18 08:24 Dose: Not Given Sucralfate (Carafate Tab) 1 gm PO BIDAC [facility] Last Admin: 02/03/18 08:23 Dose: Not Given - Labs Labs: 02/03/18 05:30 02/03/18 05:30 PT 10.9 Seconds (9.8-13.1) 02/02/18 12:32 INR 1.0 02/02/18 12:32 APTT 24.7 Seconds (25.6-37.1) L 02/02/18 12:32 - Constitutional Appears: Non-toxic, Chronically Ill - Head Exam Head Exam: NORMOCEPHALIC - Eye Exam Eye Exam: absent: Scleral icterus - ENT Exam ENT Exam: Mucous Membranes Dry - Respiratory Exam Respiratory Exam: Decreased Breath Sounds - Cardiovascular Exam Cardiovascular Exam: REGULAR RHYTHM - GI/Abdominal Exam GI & Abdominal Exam: Distended, Soft Assessment and Plan (1) Pneumonia Status: Acute (2) COPD (chronic obstructive pulmonary disease) Status: Chronic - Assessment and Plan (Free Text) Assessment: CT chest reviewed cont iv rx renewed meds Dr kinsey for follow up
[2018-02-03 14:15] LABS: ABG ALLEN TEST YES; ARTERIAL BLOOD GAS HEMOGLOBIN 9.7 g/dL (11.7-17.4); ARTERIAL BLOOD GAS O2 CAPACITY 13.3 mL/dL (16-24); ARTERIAL BLOOD GAS O2 SAT 75.1 % (95-98); ARTERIAL BLOOD GAS PCO2 41 mm/Hg (35-45); ARTERIAL BLOOD GAS PH 7.42 (7.35-7.45); ARTERIAL BLOOD GAS PO2 38 mm/Hg (80-100); ARTERIAL BLOOD GAS TCO2 27.9 mmol/L (22-28)
[2018-02-03] MEDS: Acetylcysteine 10% 4 ML IH SCH (19:12)
[2018-02-03] MEDS: Pravastatin Sodium 40 MG TAB PO SCH (21:02)
[2018-02-04] MEDS: Albuterol-Ipratrop 3 mg / 0.5 (3 ml) UD INH SCH ×7 (00:18→23:47)
[2018-02-04] MEDS: MethylPREDNISolone 40 mg Vial IVP SCH ×3 (00:31→17:06)
[2018-02-04] MEDS: Insulin Lispro (humaLOG) 100 Units/ml Inj SC SCH ×4 (07:17→22:06)
[2018-02-04] MEDS: Acetylcysteine 10% 4 ML IH SCH ×2 (07:59→19:54)
[2018-02-04] MEDS: Lidocaine 5% Patch TD SCH (09:02)
[2018-02-04] MEDS: Meropenem 500 MG in Sodium Chloride 0.9% 100 ML IVPB SCH (09:03)
[2018-02-04] MEDS: guaiFENesin-DM 600-30 mg ER Tab PO SCH ×2 (09:04→17:06)
[2018-02-04] MEDS: Cholecalciferol 1,000 INTLU TAB PO SCH (09:14)
[2018-02-04] MEDS: Fluconazole IV 100mg/50 ml NS 50 ML IVPB SCH (09:18)
[2018-02-04] MEDS ORDERED: Mupirocin 2% Cream TOP SCH (09:45)
--- NOTE | 2018-02-04 13:19 | PN ---
DATE: 02/04/2018 SUBJECTIVE: The patient is seen and examined. Interim events noted. The patient remains in intensive care unit, awaiting for telemetry . The patient is awake, responsive. She feels okay. No chest pain. No shortness of breath. No specific complaint nor issue reported by nursing staff. PHYSICAL EXAMINATION: GENERAL: The patient is in no acute distress. VITAL SIGNS: Stable. Blood pressure is . HEART: S1, S2, normal and regular. LUNGS: Good bilateral air exchange. ABDOMEN: Soft, nontender. EXTREMITIES: No edema. No calf swelling. No tenderness. No acute ischemia. CENTRAL NERVOUS SYSTEM: Essentially unchanged. DIAGNOSTIC DATA: Available diagnostic data reviewed. ASSESSMENT AND PLAN: Overall, the patient's general medical condition is stable and improving. Consults noted and appreciated. Bronchoscopy was canceled. CAT reveals left upper lobe infiltrate, atelectasis resolved. Plan as ordered. Manpreet Austin MD
--- NOTE | 2018-02-04 15:04 | CP.PCM.PN ---
Subjective - Date & Time of Evaluation Date of Evaluation: 02/04/18 - Subjective Subjective: F/U Resp. Failure, PNA Pt awake, no A/D, smiling, on NC 2 L/M, occasional cough with scant amount of whitish phlegms, chest less congestion. Objective - Vital Signs/Intake and Output Vital Signs (last 24 hours): Temp Pulse Resp BP Pulse Ox 98.3 F 95 H 16 131/74 97 02/04/18 12:00 02/04/18 12:00 02/04/18 12:00 02/04/18 12:00 02/04/18 12:00 Intake and Output: 02/04/18 02/04/18 06:59 18:59 Intake Total 150 Balance 150 - Medications Medications: Current Medications Acetaminophen (Tylenol 325mg Tab) 650 mg PO Q6 PRN PRN Reason: Pain, Mild (1-3) Last Admin: 02/02/18 20:36 Dose: 650 mg Acetylcysteine (Mucomyst 10% 4ml) 2 ml IH RBID [facility] Last Admin: 02/04/18 07:59 Dose: 2 ml Albuterol/Ipratropium (Duoneb 3 Mg/0.5 Mg (3 Ml) Ud) 3 ml INH RQ4 [facility] Last Admin: 02/04/18 11:52 Dose: 3 ml Amlodipine Besylate (Norvasc) 10 mg PO DAILY [facility] Last Admin: 02/04/18 09:04 Dose: 10 mg Bisoprolol Fumarate (Zebeta) 10 mg PO DAILY [facility] Last Admin: 02/04/18 09:14 Dose: 10 mg Cholecalciferol (Vitamin D) 1,000 intlu PO DAILY [facility] Last Admin: 02/04/18 09:14 Dose: 1,000 intlu Clotrimazole (Lotrimin 1%) 1 applic TOP BID [facility] Last Admin: 02/04/18 09:02 Dose: 1 applic Famotidine (Pepcid) 40 mg PO HS [facility] Last Admin: 02/03/18 21:01 Dose: 40 mg Ferrous Gluconate (Fergon) 324 mg PO DAILY [facility] Last Admin: 02/04/18 09:00 Dose: 324 mg Furosemide (Lasix) 40 mg PO DAILY [facility] Last Admin: 02/04/18 09:01 Dose: 40 mg Glipizide (Glucotrol) 10 mg PO DAILY [facility] Last Admin: 11/05/18 09:00 Dose: 10 mg Guaifenesin/Dextromethorphan (Mucinex-Dm 600-30 Mg) 1 tab PO BID [facility] Last Admin: 02/04/18 09:04 Dose: 1 tab Fluconazole (Diflucan Iv 100 Mg/50 Ml Ns) 50 mls @ 50 mls/hr IVPB DAILY [facility]; Protocol Last Admin: 02/04/18 09:18 Dose: 50 mls/hr Meropenem 500 mg/ Sodium (Chloride) 100 mls @ 100 mls/hr IVPB Q24H [facility]; Protocol Last Admin: 02/04/18 09:03 Dose: 100 mls/hr Insulin Human Lispro (Humalog) 0 units SC ACHS [facility]; Protocol Last Admin: 02/04/18 12:11 Dose: 6 units Isosorbide Mononitrate (Imdur Er) 30 mg PO DAILY [facility] Last Admin: 02/04/18 09:01 Dose: 30 mg Lidocaine (Lidoderm) 1 ea TD DAILY [facility] Last Admin: 02/04/18 09:02 Dose: 1 ea Methylprednisolone (Solu-Medrol) 10 mg IVP Q8 [facility] Last Admin: 02/04/18 09:04 Dose: 10 mg Mupirocin (Bactroban Ointment) 1 applic TOP BID [facility] Last Admin: 02/04/18 12:10 Dose: 1 applic Pravastatin Sodium (Pravachol) 40 mg PO HS [facility] Last Admin: 02/03/18 21:02 Dose: 40 mg Sitagliptin Phosphate (Januvia) 100 mg PO DAILY [facility] Last Admin: 02/04/18 09:01 Dose: 100 mg Sucralfate (Carafate Tab) 1 gm PO BIDAC [facility] Last Admin: 02/04/18 08:58 Dose: 1 gm - Labs Labs: 02/03/18 05:30 02/03/18 05:30 PT 10.9 Seconds (9.8-13.1) 02/02/18 12:32 INR 1.0 02/02/18 12:32 APTT 24.7 Seconds (25.6-37.1) L 02/02/18 12:32 - Constitutional Appears: Chronically Ill - Head Exam Head Exam: NORMAL INSPECTION - Eye Exam Eye Exam: PERRL - ENT Exam ENT Exam: Normal Exam - Neck Exam Neck Exam: Normal Inspection - Respiratory Exam Respiratory Exam: Decreased Breath Sounds (at bases), Rhonchi (b/l scattered), Wheezes (scattered) - Cardiovascular Exam Cardiovascular Exam: REGULAR RHYTHM - GI/Abdominal Exam GI & Abdominal Exam: Soft, Normal Bowel Sounds - Rectal Exam Rectal Exam: NORMAL INSPECTION - Extremities Exam Additional comments: RUE PICC line - Neurological Exam Neurological Exam: Alert, CN II-XII Intact Additional comments: No focal motor/sensory deficit, generalized weakness - Psychiatric Exam Psychiatric exam: Normal Affect - Skin Skin Exam: Warm Assessment and Plan (1) Pneumonia Status: Acute (2) COPD exacerbation Status: Acute (3) Respiratory failure with hypercapnia Status: Acute (4) Change in mental status Status: Resolved - Assessment and Plan (Free Text) Plan: Chest CT: Interstitial infiltrate ALEJA, alveolar consolidation in LLL, resolution of ALEJA atelectasis, mild to moderate b/l pleural effusion L>R. Continue O2 NC, Merren, Solu-Medrol, Duoneb, Mucinex, Mycomist and rest of Tx. Critical care time: 35 min.
--- NOTE | 2018-02-04 17:01 | PN ---
DATE: 02/04/2018 LOCATION: ICU bed 426. TIME SPENT: 35 minutes. SUBJECTIVE: The patient is seen and evaluated at the bedside. Past medical, surgical and social and family history reviewed. Events since admission noted. Case discussed in multidisciplinary ICU rounds this morning. HISTORY OF PRESENT ILLNESS: A 77-year-old female with history significant for chronic obstructive pulmonary disease, hypertension, chronic kidney disease, status post SHERIFFS in telemetry floor. Currently in ICU on high-flow nasal oxygen. Over night telemetry sinus rhythm, normotensive, afebrile. Out of bed to chair. Less short of breath off hemodialysis. PHYSICAL EXAMINATION: VITAL SIGNS: Temperature 97.9, heart rate 94, respiratory rate 21, blood pressure 113/65. Intake, output 1030, output 300, positive balance 730. HEAD, EYES, EARS, NOSE AND THROAT: Atraumatic, normocephalic, short neck. CHEST: Bilateral breath sounds clear to auscultation. HEART: Rhythm regular. S1, S2 normal. ABDOMEN: Bowel sounds are present. Soft. EXTREMITIES: Trace edema. NEUROLOGIC: Alert, awake, slow to respond. CURRENT MEDICATIONS: Include Carafate 1 g p.o. twice daily, Januvia 100 mg p.o. daily, Pravachol 40 mg p.o. daily Bactroban ointment one application topically twice daily, Solu-Medrol 10 mg every 8 hours, meropenem 500 mg IV every 24 hours., Lidoderm patch daily, Imdur 30 mg p.o. daily, Humalog based on Accu-Chek a.c. and h.s., guaifenesin 1 tablet b.i.d., furosemide 40 mg p.o. daily, Diflucan 100 mg IV daily, ferrous gluconate 324 mg p.o. daily, Pepcid 40 mg daily, clotrimazole cream 1% one application twice daily, vitamin D 1000 International Units daily, Norvasc 10 mg daily albuterol/Atrovent inhalation 3 mL via nebulizer every 4 hours, Mucomyst 10% 3 mL via nebulizer every 12 hours. LABORATORY DATA: WBC 13.8, hemoglobin 9, hematocrit 28.2, platelet count 203. PT 10.9, INR 1,, PTT 24.7. ABG, pH 7.42, pCO2 of 41, pO2 of 38, FIO2 75% on room air. SMA-7 sodium 134, potassium 3.9, chloride 100, CO2 26, blood urea nitrogen 42, creatinine 1.05, random glucose 230, lactic acid pending, calcium 7.9, AST 27, ALT 33, alkaline phosphatase 55, total protein 5.9, albumin 2.9. Urinalysis, RBC 4 microscopic, WBC 4. Microbiology, sputum culture positive for yeast. Nasal smear MRSA positive. Chest CT done on 02/03 shows interstitial infiltrate in the left upper lobe with alveolar consolidation in the left lower lobe; resolution of previously noted left upper lobe atelectasis; moderate bilateral pleural effusion, left greater than the right; compressive atelectasis at the left base. IMPRESSION: 1. Neuro: Toxic hypoxic metabolic encephalopathy, improved. Out of bed to chair. 2. Pulmonary: Hypercapnic hypoxic respiratory failure, bilateral pleural effusion more on the left than the right, status post left upper lobe atelectasis, resolved. History of a chronic obstructive pulmonary disease. Head of bed at 30 degrees up, out of bed to chair, DuoNeb 3 mL via nebulizer every 6 to every 4 hours., wean off systemic steroids. 3. Cardiac: History of hypertension, controlled on Norvasc 10 mg daily, isosorbide 30 mg p.o. daily. 4. Endocrinology: Maintain a blood sugar below 180 mg. Continue Januvia. 5. Infectious Disease: Positive nasal smear Methicillin-resistant Staphylococcus aureus, on Bactroban. Left lower lobe pneumonia, on meropenem. 6. Renal. Chronic kidney disease. BUN and creatinine improved after dialysis currently 42 and 1.05. Closely monitor renal function. 7. 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 Out of bed to chair. Improve activity as tolerated. Chest PT as needed. Regis Dao MD
--- NOTE | 2018-02-04 17:58 | CP.PCM.PN ---
Subjective - Date & Time of Evaluation Date of Evaluation: 02/04/18 Time of Evaluation: 17:58 - Subjective Subjective: pt is feeling better, no sob, no cp, no palpitation Objective - Vital Signs/Intake and Output Vital Signs (last 24 hours): Temp Pulse Resp BP Pulse Ox 97.1 F L 84 18 128/66 98 02/04/18 13:00 02/04/18 13:00 02/04/18 13:00 02/04/18 13:00 02/04/18 13:00 Intake and Output: 02/04/18 02/04/18 06:59 18:59 Intake Total 150 Balance 150 - Medications Medications: Current Medications Acetaminophen (Tylenol 325mg Tab) 650 mg PO Q6 PRN PRN Reason: Pain, Mild (1-3) Last Admin: 02/02/18 20:36 Dose: 650 mg Acetylcysteine (Mucomyst 10% 4ml) 2 ml IH RBID [facility] Last Admin: 02/04/18 07:59 Dose: 2 ml Albuterol/Ipratropium (Duoneb 3 Mg/0.5 Mg (3 Ml) Ud) 3 ml INH RQ4 [facility] Last Admin: 02/04/18 15:22 Dose: 3 ml Amlodipine Besylate (Norvasc) 10 mg PO DAILY [facility] Last Admin: 02/04/18 09:04 Dose: 10 mg Bisoprolol Fumarate (Zebeta) 10 mg PO DAILY [facility] Last Admin: 02/04/18 09:14 Dose: 10 mg Cholecalciferol (Vitamin D) 1,000 intlu PO DAILY [facility] Last Admin: 02/04/18 09:14 Dose: 1,000 intlu Clotrimazole (Lotrimin 1%) 1 applic TOP BID [facility] Last Admin: 02/04/18 17:05 Dose: 1 applic Famotidine (Pepcid) 40 mg PO HS [facility] Last Admin: 02/03/18 21:01 Dose: 40 mg Ferrous Gluconate (Fergon) 324 mg PO DAILY [facility] Last Admin: 02/04/18 09:00 Dose: 324 mg Furosemide (Lasix) 40 mg PO DAILY [facility] Last Admin: 02/04/18 09:01 Dose: 40 mg Glipizide (Glucotrol) 10 mg PO DAILY [facility] Last Admin: 02/04/18 09:00 Dose: 10 mg Guaifenesin/Dextromethorphan (Mucinex-Dm 600-30 Mg) 1 tab PO BID [facility] Last Admin: 02/04/18 17:06 Dose: 1 tab Fluconazole (Diflucan Iv 100 Mg/50 Ml Ns) 50 mls @ 50 mls/hr IVPB DAILY [facility]; Protocol Last Admin: 02/04/18 09:18 Dose: 50 mls/hr Meropenem 500 mg/ Sodium (Chloride) 100 mls @ 100 mls/hr IVPB Q24H [facility]; Protocol Last Admin: 02/04/18 09:03 Dose: 100 mls/hr Insulin Human Lispro (Humalog) 0 units SC ACHS [facility]; Protocol Last Admin: 02/04/18 17:04 Dose: 6 units Isosorbide Mononitrate (Imdur Er) 30 mg PO DAILY [facility] Last Admin: 02/04/18 09:01 Dose: 30 mg Lidocaine (Lidoderm) 1 ea TD DAILY [facility] Last Admin: 02/04/18 09:02 Dose: 1 ea Methylprednisolone (Solu-Medrol) 10 mg IVP Q8 [facility] Last Admin: 02/04/18 17:06 Dose: 10 mg Mupirocin (Bactroban Ointment) 1 applic TOP BID [facility] Last Admin: 02/04/18 17:03 Dose: 1 applic Pravastatin Sodium (Pravachol) 40 mg PO HS [facility] Last Admin: 02/03/18 21:02 Dose: 40 mg Sitagliptin Phosphate (Januvia) 100 mg PO DAILY [facility] Last Admin: 02/04/18 09:01 Dose: 100 mg Sucralfate (Carafate Tab) 1 gm PO BIDAC [facility] Last Admin: 02/04/18 17:03 Dose: 1 gm - Labs Labs: 02/03/18 05:30 02/03/18 05:30 PT 10.9 Seconds (9.8-13.1) 02/02/18 12:32 INR 1.0 02/02/18 12:32 APTT 24.7 Seconds (25.6-37.1) L 02/02/18 12:32 - Constitutional Appears: Well, Non-toxic, No Acute Distress - Head Exam Head Exam: ATRAUMATIC, NORMOCEPHALIC - Eye Exam Eye Exam: EOMI, Normal appearance, PERRL Pupil Exam: NORMAL ACCOMODATION - ENT Exam ENT Exam: Mucous Membranes Moist - Neck Exam Neck Exam: Full ROM, Normal Inspection - Respiratory Exam Respiratory Exam: Clear to Ausculation Bilateral, NORMAL BREATHING PATTERN - Cardiovascular Exam Cardiovascular Exam: REGULAR RHYTHM, +S1, +S2 - GI/Abdominal Exam GI & Abdominal Exam: Soft, Normal Bowel Sounds - Extremities Exam Extremities Exam: Full ROM, Normal Inspection Additional comments: no edema - Neurological Exam Neurological Exam: Alert, Awake, CN II-XII Intact, Oriented x3 - Psychiatric Exam Psychiatric exam: Normal Affect - Skin Skin Exam: Normal Color, Warm Assessment and Plan - Assessment and Plan (Free Text) Assessment: 78 yo HF with pmh/o htn, dm hld, chf, copd, ? spinal stenosis, ckd with sob, being treated for mycoplasma pneumonia with b/l infiltrates, AMS this am, s/p [employer], pt is more alert, awake 1. Luís on ckd-3 2. htn 3. Mycoplasma pneumonia 4. DM 5. AMS, s/p [employer] c/w IV ABx as per ID, renal function is stable. will hold hd , monitor bmp daily if s.cr is stable tomorrow , can remove rt IJV kavitha cath physical therapy evaluation
[2018-02-04] MEDS: Pravastatin Sodium 40 MG TAB PO SCH (21:42)
[2018-02-04 21:47] LABS: SQUAMOUS EPITHIAL 2 /hpf (0-5); URINE BACTERIA RARE (<OCC); URINE BILIRUBIN NEGATIVE (NEGATIVE); URINE BLOOD SMALL (NEGATIVE); URINE CLARITY SLIGHTY-CLOUDY (Clear); URINE COLOR YELLOW (YELLOW); URINE GLUCOSE (UA) 50 mg/dL (Normal); URINE LEUKOCYTE ESTERASE TRACE Leu/uL (Negative); URINE PROTEIN 100 mg/dL (NEGATIVE); URINE UROBILINOGEN 0.2-1.0 mg/dL (0.2-1.0)
[2018-02-05] MEDS: MethylPREDNISolone 40 mg Vial IVP SCH ×2 (00:41→09:24)
[2018-02-05] MEDS: Albuterol-Ipratrop 3 mg / 0.5 (3 ml) UD INH SCH ×6 (04:57→23:50)
[2018-02-05 07:13] LABS: HEMOGLOBIN 8.9 g/dL (12.0-16.0); MEAN CELL VOLUME 89.5 fl (81.0-99.0); MEAN CORPUSCULAR HEMOGLOBIN 28.1 pg (27.0-31.0); MEAN CORPUSCULAR HGB CONC 31.4 g/dL (33.0-37.0); RBC 3.18 Mil/uL (3.80-5.20); RED CELL DISTRIBUTION WIDTH 14.8 % (11.5-14.5); WHITE BLOOD COUNT 12.1 K/uL (4.8-10.8)
[2018-02-05] MEDS: Acetylcysteine 10% 4 ML IH SCH ×2 (08:00→19:13)
[2018-02-05 08:16] LABS: CALCIUM 7.8 mg/dL (8.4-10.2)
[2018-02-05] MEDS: Insulin Lispro (humaLOG) 100 Units/ml Inj SC SCH ×4 (08:30→23:29)
[2018-02-05] MEDS: Fluconazole IV 100mg/50 ml NS 50 ML IVPB SCH (09:18)
[2018-02-05] MEDS: Lidocaine 5% Patch TD SCH (09:21)
[2018-02-05] MEDS: Meropenem 500 MG in Sodium Chloride 0.9% 100 ML IVPB SCH (09:23)
[2018-02-05] MEDS: guaiFENesin-DM 600-30 mg ER Tab PO SCH ×2 (09:23→18:29)
[2018-02-05] MEDS: Cholecalciferol 1,000 INTLU TAB PO SCH (09:26)
--- NOTE | 2018-02-05 09:42 | CP.PCM.PN ---
Subjective - Date & Time of Evaluation Date of Evaluation: 02/05/18 Time of Evaluation: 09:40 - Subjective Subjective: no overnight events Objective - Vital Signs/Intake and Output Vital Signs (last 24 hours): Temp Pulse Resp BP Pulse Ox 97.8 F 87 20 146/73 94 L 02/05/18 08:30 02/05/18 09:23 02/05/18 08:30 02/05/18 09:23 02/05/18 08:30 - Medications Medications: Current Medications Acetaminophen (Tylenol 325mg Tab) 650 mg PO Q6 PRN PRN Reason: Pain, Mild (1-3) Last Admin: 02/05/18 00:41 Dose: 650 mg Acetylcysteine (Mucomyst 10% 4ml) 2 ml IH RBID [facility] Last Admin: 02/05/18 08:00 Dose: 2 ml Albuterol/Ipratropium (Duoneb 3 Mg/0.5 Mg (3 Ml) Ud) 3 ml INH RQ4 [facility] Last Admin: 02/05/18 08:01 Dose: 3 ml Amlodipine Besylate (Norvasc) 10 mg PO DAILY [facility] Last Admin: 02/05/18 09:23 Dose: 10 mg Bisoprolol Fumarate (Zebeta) 10 mg PO DAILY [facility] Last Admin: 02/05/18 09:26 Dose: 10 mg Cholecalciferol (Vitamin D) 1,000 intlu PO DAILY [facility] Last Admin: 02/05/18 09:26 Dose: 1,000 intlu Clotrimazole (Lotrimin 1%) 1 applic TOP BID [facility] Last Admin: 02/05/18 09:22 Dose: 1 applic Famotidine (Pepcid) 40 mg PO HS [facility] Last Admin: 02/04/18 21:42 Dose: 40 mg Ferrous Gluconate (Fergon) 324 mg PO DAILY [facility] Last Admin: 02/05/18 09:18 Dose: 324 mg Furosemide (Lasix) 40 mg PO DAILY [facility] Last Admin: 02/05/18 09:21 Dose: 40 mg Glipizide (Glucotrol) 10 mg PO DAILY [facility] Last Admin: 02/05/18 09:19 Dose: 10 mg Guaifenesin/Dextromethorphan (Mucinex-Dm 600-30 Mg) 1 tab PO BID [facility] Last Admin: 02/05/18 09:23 Dose: 1 tab Fluconazole (Diflucan Iv 100 Mg/50 Ml Ns) 50 mls @ 50 mls/hr IVPB DAILY [facility]; Protocol Last Admin: 02/05/18 09:18 Dose: 50 mls/hr Meropenem 500 mg/ Sodium (Chloride) 100 mls @ 100 mls/hr IVPB Q24H [facility]; Protocol Last Admin: 02/05/18 09:23 Dose: 100 mls/hr Insulin Human Lispro (Humalog) 0 units SC ACHS [facility]; Protocol Last Admin: 02/05/18 08:30 Dose: Not Given Isosorbide Mononitrate (Imdur Er) 30 mg PO DAILY [facility] Last Admin: 02/05/18 09:20 Dose: 30 mg Lidocaine (Lidoderm) 1 ea TD DAILY [facility] Last Admin: 02/05/18 09:21 Dose: 1 ea Methylprednisolone (Solu-Medrol) 10 mg IVP Q8 [facility] Last Admin: 02/05/18 09:24 Dose: 10 mg Mupirocin (Bactroban Ointment) 1 applic TOP BID [facility] Last Admin: 02/05/18 09:17 Dose: 1 applic Pravastatin Sodium (Pravachol) 40 mg PO HS [facility] Last Admin: 02/04/18 21:42 Dose: 40 mg Sitagliptin Phosphate (Januvia) 100 mg PO DAILY [facility] Last Admin: 02/05/18 09:20 Dose: 100 mg Sucralfate (Carafate Tab) 1 gm PO BIDAC [facility] Last Admin: 02/05/18 09:18 Dose: 1 gm - Labs Labs: 02/05/18 06:45 02/05/18 06:45 PT 10.9 Seconds (9.8-13.1) 02/02/18 12:32 INR 1.0 02/02/18 12:32 APTT 24.7 Seconds (25.6-37.1) L 02/02/18 12:32 - Head Exam Head Exam: NORMOCEPHALIC - Neck Exam Neck Exam: Normal Inspection - Respiratory Exam Respiratory Exam: Clear to Ausculation Bilateral, NORMAL BREATHING PATTERN - Cardiovascular Exam Cardiovascular Exam: REGULAR RHYTHM - GI/Abdominal Exam GI & Abdominal Exam: Soft, Normal Bowel Sounds Assessment and Plan - Assessment and Plan (Free Text) Assessment: 78 yo female with PNA no GI complaints H2B prn
--- NOTE | 2018-02-05 12:04 | CP.PCM.PN ---
Subjective - Date & Time of Evaluation Date of Evaluation: 02/05/18 Time of Evaluation: 12:04 - Subjective Subjective: pt is feeling better, no sob, no cp, no edema s/p luís on ckd-3, renal function is improved, d/c rt ijv kavitha cath Objective - Vital Signs/Intake and Output Vital Signs (last 24 hours): Temp Pulse Resp BP Pulse Ox 97.8 F 87 20 146/73 94 L 02/05/18 08:30 02/05/18 09:23 02/05/18 08:30 02/05/18 09:23 02/05/18 08:30 - Medications Medications: Current Medications Acetaminophen (Tylenol 325mg Tab) 650 mg PO Q6 PRN PRN Reason: Pain, Mild (1-3) Last Admin: 02/05/18 00:41 Dose: 650 mg Acetylcysteine (Mucomyst 10% 4ml) 2 ml IH RBID [facility] Last Admin: 02/05/18 08:00 Dose: 2 ml Albuterol/Ipratropium (Duoneb 3 Mg/0.5 Mg (3 Ml) Ud) 3 ml INH RQ4 [facility] Last Admin: 02/05/18 11:51 Dose: 3 ml Amlodipine Besylate (Norvasc) 10 mg PO DAILY [facility] Last Admin: 02/05/18 09:23 Dose: 10 mg Bisoprolol Fumarate (Zebeta) 10 mg PO DAILY [facility] Last Admin: 02/05/18 09:26 Dose: 10 mg Cholecalciferol (Vitamin D) 1,000 intlu PO DAILY [facility] Last Admin: 02/05/18 09:26 Dose: 1,000 intlu Clotrimazole (Lotrimin 1%) 1 applic TOP BID [facility] Last Admin: 02/05/18 09:22 Dose: 1 applic Famotidine (Pepcid) 40 mg PO HS [facility] Last Admin: 02/04/18 21:42 Dose: 40 mg Ferrous Gluconate (Fergon) 324 mg PO DAILY [facility] Last Admin: 02/05/18 09:18 Dose: 324 mg Furosemide (Lasix) 40 mg PO DAILY [facility] Last Admin: 02/05/18 09:21 Dose: 40 mg Glipizide (Glucotrol) 10 mg PO DAILY [facility] Last Admin: 02/05/18 09:19 Dose: 10 mg Guaifenesin/Dextromethorphan (Mucinex-Dm 600-30 Mg) 1 tab PO BID [facility] Last Admin: 02/05/18 09:23 Dose: 1 tab Fluconazole (Diflucan Iv 100 Mg/50 Ml Ns) 50 mls @ 50 mls/hr IVPB DAILY [facility]; Protocol Last Admin: 02/05/18 09:18 Dose: 50 mls/hr Meropenem 500 mg/ Sodium (Chloride) 100 mls @ 100 mls/hr IVPB Q24H [facility]; Protocol Last Admin: 02/05/18 09:23 Dose: 100 mls/hr Insulin Human Lispro (Humalog) 0 units SC ACHS [facility]; Protocol Last Admin: 02/05/18 08:30 Dose: Not Given Isosorbide Mononitrate (Imdur Er) 30 mg PO DAILY [facility] Last Admin: 02/05/18 09:20 Dose: 30 mg Lidocaine (Lidoderm) 1 ea TD DAILY [facility] Last Admin: 02/05/18 09:21 Dose: 1 ea Methylprednisolone (Solu-Medrol) 10 mg IVP Q8 [facility] Last Admin: 02/05/18 09:24 Dose: 10 mg Mupirocin (Bactroban Ointment) 1 applic TOP BID [facility] Last Admin: 02/05/18 09:17 Dose: 1 applic Pravastatin Sodium (Pravachol) 40 mg PO HS [facility] Last Admin: 02/04/18 21:42 Dose: 40 mg Sitagliptin Phosphate (Januvia) 100 mg PO DAILY [facility] Last Admin: 02/05/18 09:20 Dose: 100 mg Sucralfate (Carafate Tab) 1 gm PO BIDAC [facility] Last Admin: 02/05/18 09:18 Dose: 1 gm - Labs Labs: 02/05/18 06:45 02/05/18 06:45 PT 10.9 Seconds (9.8-13.1) 02/02/18 12:32 INR 1.0 02/02/18 12:32 APTT 24.7 Seconds (25.6-37.1) L 02/02/18 12:32 - Constitutional Appears: Well, Non-toxic - Head Exam Head Exam: ATRAUMATIC, NORMAL INSPECTION, NORMOCEPHALIC - Eye Exam Eye Exam: EOMI, Normal appearance, PERRL Pupil Exam: NORMAL ACCOMODATION - ENT Exam ENT Exam: Mucous Membranes Moist - Neck Exam Neck Exam: Full ROM, Normal Inspection - Respiratory Exam Respiratory Exam: Clear to Ausculation Bilateral, NORMAL BREATHING PATTERN - Cardiovascular Exam Cardiovascular Exam: REGULAR RHYTHM, +S1, +S2 - GI/Abdominal Exam GI & Abdominal Exam: Soft, Normal Bowel Sounds - Rectal Exam Rectal Exam: Deferred - Neurological Exam Neurological Exam: Alert, Awake, CN II-XII Intact, Oriented x3 Assessment and Plan - Assessment and Plan (Free Text) Assessment: 78 yo HF with pmh/o htn, dm hld, chf, copd, ? spinal stenosis, ckd with sob, being treated for mycoplasma pneumonia with b/l infiltrates, AMS this am, s/p [employer], pt is more alert, awake 1. Luís on ckd-3 2. htn 3. Mycoplasma pneumonia 4. DM 5. AMS, s/p [employer] c/w IV ABx as per ID, renal function is stable. will hold hd , monitor bmp daily s.cr is stable , can remove rt IJV kavitha cath, no need for further HD physical therapy evaluation
[2018-02-05 12:28] LABS: ABG ALLEN TEST YES; ARTERIAL BLOOD GAS HCO3 27.7 mmol/L (21-28); ARTERIAL BLOOD GAS HEMOGLOBIN 9.3 g/dL (11.7-17.4); ARTERIAL BLOOD GAS O2 CAPACITY 12.8 mL/dL (16-24); ARTERIAL BLOOD GAS O2 CONTENT 10.4 ML/dL (15-23); ARTERIAL BLOOD GAS O2 SAT 81.3 % (95-98); ARTERIAL BLOOD GAS PCO2 42 mm/Hg (35-45); ARTERIAL BLOOD GAS PH 7.44 (7.35-7.45); ARTERIAL BLOOD GAS PO2 43 mm/Hg (80-100); ARTERIAL BLOOD GAS TCO2 29.8 mmol/L (22-28)
[2018-02-05] MEDS ORDERED: Sodium Chloride 3% for Inhalation 4 ML VIAL.NEB IH PRN (12:41)
--- NOTE | 2018-02-05 13:52 | PCM.SURG1 ---
Surgeon's Initial Post Op Note - Surgeon's Notes Surgeon: Laura Angle Shearer: None Type of Anesthesia: None Pre-Operative Diagnosis: CAMPBELL - stable renal function Operative Findings: Right shiley catheter Post-Operative Diagnosis: CAMPBELL - stable renal function Operation Performed: Removal of right shiley catheter Specimen/Specimens Removed: Right shiley catheter Estimated Blood Loss: EBL {In ML}: 1 Date of Surgery/Procedure: 02/05/18 Time of Surgery/Procedure: 13:45
--- NOTE | 2018-02-05 14:59 | CP.PCM.PN ---
Subjective - Date & Time of Evaluation Date of Evaluation: 02/05/18 Time of Evaluation: 10:10 - Subjective Subjective: F/U Resp. Failure/PNA Pt awake, smiling, breathing better, on NC 2 L/M. Objective - Vital Signs/Intake and Output Vital Signs (last 24 hours): Temp Pulse Resp BP Pulse Ox 97.8 F 77 18 116/81 91 L 02/05/18 13:49 02/05/18 13:49 02/05/18 13:49 02/05/18 13:49 02/05/18 13:49 - Medications Medications: Current Medications Acetaminophen (Tylenol 325mg Tab) 650 mg PO Q6 PRN PRN Reason: Pain, Mild (1-3) Last Admin: 02/05/18 00:41 Dose: 650 mg Acetylcysteine (Mucomyst 10% 4ml) 2 ml IH RBID [facility] Last Admin: 02/05/18 08:00 Dose: 2 ml Albuterol/Ipratropium (Duoneb 3 Mg/0.5 Mg (3 Ml) Ud) 3 ml INH RQ4 [facility] Last Admin: 02/05/18 11:51 Dose: 3 ml Amlodipine Besylate (Norvasc) 10 mg PO DAILY [facility] Last Admin: 02/05/18 09:23 Dose: 10 mg Bisoprolol Fumarate (Zebeta) 10 mg PO DAILY [facility] Last Admin: 02/05/18 09:26 Dose: 10 mg Cholecalciferol (Vitamin D) 1,000 intlu PO DAILY [facility] Last Admin: 02/05/18 09:26 Dose: 1,000 intlu Clotrimazole (Lotrimin 1%) 1 applic TOP BID [facility] Last Admin: 02/05/18 09:22 Dose: 1 applic Famotidine (Pepcid) 40 mg PO HS [facility] Last Admin: 02/04/18 21:42 Dose: 40 mg Ferrous Gluconate (Fergon) 324 mg PO DAILY [facility] Last Admin: 02/05/18 09:18 Dose: 324 mg Furosemide (Lasix) 40 mg PO DAILY [facility] Last Admin: 02/05/18 09:21 Dose: 40 mg Glipizide (Glucotrol) 10 mg PO DAILY [facility] Last Admin: 02/05/18 09:19 Dose: 10 mg Guaifenesin/Dextromethorphan (Mucinex-Dm 600-30 Mg) 1 tab PO BID [facility] Last Admin: 02/05/18 09:23 Dose: 1 tab Fluconazole (Diflucan Iv 100 Mg/50 Ml Ns) 50 mls @ 50 mls/hr IVPB DAILY [facility]; Protocol Last Admin: 02/05/18 09:18 Dose: 50 mls/hr Meropenem 500 mg/ Sodium (Chloride) 100 mls @ 100 mls/hr IVPB Q24H [facility]; Protocol Last Admin: 02/05/18 09:23 Dose: 100 mls/hr Insulin Human Lispro (Humalog) 0 units SC ACHS [facility]; Protocol Last Admin: 02/05/18 13:00 Dose: 4 units Isosorbide Mononitrate (Imdur Er) 30 mg PO DAILY [facility] Last Admin: 02/05/18 09:20 Dose: 30 mg Lidocaine (Lidoderm) 1 ea TD DAILY [facility] Last Admin: 02/05/18 09:21 Dose: 1 ea Mupirocin (Bactroban Ointment) 1 applic TOP BID [facility] Last Admin: 02/05/18 09:17 Dose: 1 applic Pravastatin Sodium (Pravachol) 40 mg PO HS [facility] Last Admin: 02/04/18 21:42 Dose: 40 mg Prednisone (Prednisone Tab) 20 mg PO DAILY [facility] Sitagliptin Phosphate (Januvia) 100 mg PO DAILY [facility] Last Admin: 02/05/18 09:20 Dose: 100 mg Sucralfate (Carafate Tab) 1 gm PO BIDAC [facility] Last Admin: 02/05/18 09:18 Dose: 1 gm - Labs Labs: 02/05/18 06:45 02/05/18 06:45 PT 10.9 Seconds (9.8-13.1) 02/02/18 12:32 INR 1.0 02/02/18 12:32 APTT 24.7 Seconds (25.6-37.1) L 02/02/18 12:32 - Constitutional Appears: Chronically Ill - Head Exam Head Exam: NORMAL INSPECTION - Eye Exam Eye Exam: PERRL - ENT Exam ENT Exam: Normal Exam - Neck Exam Neck Exam: Normal Inspection - Respiratory Exam Respiratory Exam: Decreased Breath Sounds (at abses), Rhonchi (b/l scattered) - Cardiovascular Exam Cardiovascular Exam: REGULAR RHYTHM - GI/Abdominal Exam GI & Abdominal Exam: Soft, Normal Bowel Sounds - Extremities Exam Additional comments: RUE PICC line - Neurological Exam Neurological Exam: Alert, CN II-XII Intact Additional comments: No focal motor/sensory deficit. Generalized weakness. - Psychiatric Exam Psychiatric exam: Normal Mood - Skin Skin Exam: Warm Assessment and Plan (1) Pneumonia Status: Acute (2) COPD exacerbation Status: Acute (3) Respiratory failure with hypercapnia Status: Acute (4) Change in mental status Status: Resolved - Assessment and Plan (Free Text) Plan: Continue Merren, Duoneb, taper steroids and rest of tx.
--- NOTE | 2018-02-05 16:40 | CP.PCM.PN ---
<Jorge Del Toro - Last Filed: 02/05/18 16:38> Subjective - Date & Time of Evaluation Date of Evaluation: 02/05/18 Time of Evaluation: 07:30 - Subjective Subjective: 78 y/o f was sandi dn examined by bedside with Dr Austin. Pt reports feeling Ok, complained of rash under both breast and under abdomen skin folds. Pt afebrile, tolerating PO with NO acute event overnight. Objective - Vital Signs/Intake and Output Vital Signs (last 24 hours): Temp Pulse Resp BP Pulse Ox 97.8 F 77 18 116/81 91 L 02/05/18 13:49 02/05/18 13:49 02/05/18 13:49 02/05/18 13:49 02/05/18 13:49 - Medications Medications: Current Medications Acetaminophen (Tylenol 325mg Tab) 650 mg PO Q6 PRN PRN Reason: Pain, Mild (1-3) Last Admin: 02/05/18 00:41 Dose: 650 mg Acetylcysteine (Mucomyst 10% 4ml) 2 ml IH RBID [facility] Last Admin: 02/05/18 08:00 Dose: 2 ml Albuterol/Ipratropium (Duoneb 3 Mg/0.5 Mg (3 Ml) Ud) 3 ml INH RQ4 [facility] Last Admin: 02/05/18 15:22 Dose: 3 ml Amlodipine Besylate (Norvasc) 10 mg PO DAILY [facility] Last Admin: 02/05/18 09:23 Dose: 10 mg Bisoprolol Fumarate (Zebeta) 10 mg PO DAILY [facility] Last Admin: 02/05/18 09:26 Dose: 10 mg Cholecalciferol (Vitamin D) 1,000 intlu PO DAILY [facility] Last Admin: 02/05/18 09:26 Dose: 1,000 intlu Clotrimazole (Lotrimin 1%) 1 applic TOP BID [facility] Last Admin: 02/05/18 09:22 Dose: 1 applic Famotidine (Pepcid) 40 mg PO HS [facility] Last Admin: 02/04/18 21:42 Dose: 40 mg Ferrous Gluconate (Fergon) 324 mg PO DAILY [facility] Last Admin: 02/05/18 09:18 Dose: 324 mg Furosemide (Lasix) 40 mg PO DAILY [facility] Last Admin: 02/05/18 09:21 Dose: 40 mg Glipizide (Glucotrol) 10 mg PO DAILY [facility] Last Admin: 02/05/18 09:19 Dose: 10 mg Guaifenesin/Dextromethorphan (Mucinex-Dm 600-30 Mg) 1 tab PO BID [facility] Last Admin: 02/05/18 09:23 Dose: 1 tab Fluconazole (Diflucan Iv 100 Mg/50 Ml Ns) 50 mls @ 50 mls/hr IVPB DAILY [facility]; Protocol Last Admin: 02/05/18 09:18 Dose: 50 mls/hr Meropenem 500 mg/ Sodium (Chloride) 100 mls @ 100 mls/hr IVPB Q24H [facility]; Protocol Last Admin: 02/05/18 09:23 Dose: 100 mls/hr Insulin Human Lispro (Humalog) 0 units SC ACHS [facility]; Protocol Last Admin: 02/05/18 13:00 Dose: 4 units Isosorbide Mononitrate (Imdur Er) 30 mg PO DAILY [facility] Last Admin: 02/05/18 09:20 Dose: 30 mg Lidocaine (Lidoderm) 1 ea TD DAILY [facility] Last Admin: 02/05/18 09:21 Dose: 1 ea Mupirocin (Bactroban Ointment) 1 applic TOP BID [facility] Last Admin: 02/05/18 09:17 Dose: 1 applic Pravastatin Sodium (Pravachol) 40 mg PO HS [facility] Last Admin: 02/04/18 21:42 Dose: 40 mg Prednisone (Prednisone Tab) 20 mg PO DAILY [facility] Sitagliptin Phosphate (Januvia) 100 mg PO DAILY [facility] Last Admin: 02/05/18 09:20 Dose: 100 mg Sucralfate (Carafate Tab) 1 gm PO BIDAC [facility] Last Admin: 02/05/18 09:18 Dose: 1 gm - Labs Labs: 02/05/18 06:45 02/05/18 06:45 PT 10.9 Seconds (9.8-13.1) 02/02/18 12:32 INR 1.0 02/02/18 12:32 APTT 24.7 Seconds (25.6-37.1) L 02/02/18 12:32 - Constitutional Appears: No Acute Distress - Head Exam Head Exam: ATRAUMATIC, NORMAL INSPECTION - Eye Exam Eye Exam: EOMI, Normal appearance - ENT Exam ENT Exam: Mucous Membranes Moist - Neck Exam Neck Exam: Full ROM. absent: Meningismus - Respiratory Exam Respiratory Exam: NORMAL BREATHING PATTERN. absent: Rales, Wheezes, Respiratory Distress - Cardiovascular Exam Cardiovascular Exam: +S1, +S2 - GI/Abdominal Exam GI & Abdominal Exam: Soft. absent: Guarding, Rigid, Tenderness - Extremities Exam Extremities Exam: absent: Calf Tenderness - Neurological Exam Neurological Exam: Alert, Awake Assessment and Plan - Assessment and Plan (Free Text) Assessment: 77 y/o female patient admitted due to pneumonia, positive Mycoplasma serum IgM, sputum cx positive for yeasts, admission complicated with CAMPBELL on HD. PLAN: --Afebrile, VS stable. --Removal of HD catheter today. --Continue on Meropenem and Fluconazole IV treatments. --Topical Clotrimazole ordered for b/l breast and lower abdomen irritation. --GI consulted, input appreciated --ID on board, input appreciated --Pulmonology on board, input appreciated --Nephro consulted, input appreciated --continue rest of plan as ordered Case discussed with Dr Norman Solomon, PGY-2 <Manpreet Austin - Last Filed: 02/09/18 07:02> Objective - Vital Signs/Intake and Output Vital Signs (last 24 hours): Temp Pulse Resp BP Pulse Ox 98.9 F 88 18 137/73 95 02/09/18 05:11 02/09/18 05:11 02/09/18 05:11 02/09/18 05:11 02/09/18 05:11 Intake and Output: 02/08/18 02/09/18 23:59 11:59 Intake Total 900 Output Total 1500 Balance -600 - Medications Medications: Current Medications Acetaminophen (Tylenol 325mg Tab) 650 mg PO Q6 PRN PRN Reason: Pain, Mild (1-3) Last Admin: 02/08/18 20:55 Dose: 650 mg Acetylcysteine (Mucomyst 10% 4ml) 2 ml IH RBID [facility] Last Admin: 02/08/18 19:39 Dose: 2 ml Albuterol/Ipratropium (Duoneb 3 Mg/0.5 Mg (3 Ml) Ud) 3 ml INH RQ4 [facility] Last Admin: 02/09/18 03:42 Dose: 3 ml Amlodipine Besylate (Norvasc) 10 mg PO DAILY [facility] Last Admin: 11/09/18 08:25 Dose: 10 mg Bisoprolol Fumarate (Zebeta) 10 mg PO DAILY [facility] Last Admin: 02/08/18 08:24 Dose: 10 mg Cholecalciferol (Vitamin D) 1,000 intlu PO DAILY [facility] Last Admin: 02/08/18 08:24 Dose: 1,000 intlu Clotrimazole (Lotrimin 1%) 1 applic TOP BID [facility] Last Admin: 02/08/18 16:51 Dose: 1 applic Dextrose (Dextrose 50% Inj) 0 ml IV STAT PRN; Protocol PRN Reason: Hypoglycemia Protocol Dextrose (Glutose 15) 0 gm PO ONCE PRN; Protocol PRN Reason: Hypoglycemia Protocol Famotidine (Pepcid) 40 mg PO HS [facility] Last Admin: 02/08/18 20:59 Dose: 40 mg Ferrous Gluconate (Fergon) 324 mg PO DAILY [facility] Last Admin: 02/08/18 08:25 Dose: 324 mg Furosemide (Lasix) 40 mg PO DAILY [facility] Last Admin: 02/08/18 08:25 Dose: 40 mg Glipizide (Glucotrol) 10 mg PO DAILY [facility] Last Admin: 02/08/18 08:26 Dose: 10 mg Glucagon (Glucagen Diagnostic Kit) 0 mg IM STAT PRN; Protocol PRN Reason: Hypoglycemia Protocol Guaifenesin/Dextromethorphan (Mucinex-Dm 600-30 Mg) 1 tab PO BID [facility] Last Admin: 02/08/18 16:51 Dose: 1 tab Fluconazole (Diflucan Iv 100 Mg/50 Ml Ns) 50 mls @ 50 mls/hr IVPB DAILY [facility]; Protocol Last Admin: 02/08/18 08:36 Dose: 50 mls/hr Insulin Human Lispro (Humalog) 0 units SC ACHS [facility]; Protocol Last Admin: 02/08/18 22:00 Dose: Not Given Isosorbide Mononitrate (Imdur Er) 30 mg PO DAILY [facility] Last Admin: 02/08/18 08:29 Dose: 30 mg Lidocaine (Lidoderm) 1 ea TD DAILY [facility] Last Admin: 02/08/18 08:24 Dose: 1 ea Mupirocin (Bactroban Ointment) 1 applic TOP BID [facility] Last Admin: 02/08/18 16:50 Dose: 1 applic Pravastatin Sodium (Pravachol) 40 mg PO HS [facility] Last Admin: 02/08/18 20:59 Dose: 40 mg Prednisone (Prednisone Tab) 20 mg PO DAILY [facility] Last Admin: 02/08/18 08:30 Dose: 20 mg Sitagliptin Phosphate (Januvia) 100 mg PO DAILY [facility] Last Admin: 02/08/18 08:28 Dose: 100 mg Sucralfate (Carafate Tab) 1 gm PO BIDAC [facility] Last Admin: 02/08/18 16:51 Dose: 1 gm - Labs Labs: 02/07/18 05:10 02/07/18 05:10 PT 10.9 Seconds (9.8-13.1) 02/02/18 12:32 INR 1.0 02/02/18 12:32 APTT 24.7 Seconds (25.6-37.1) L 02/02/18 12:32 Assessment and Plan - Assessment and Plan (Free Text) Assessment: Patient was personally seen and examined by me in rounds with residents. Available labs and diagnostic data reviewed. Case, Patient's condition and management plan discussed with residents in rounds. Agree with resident's progress note. Plan: As ordered.
[2018-02-05] MEDS: Pravastatin Sodium 40 MG TAB PO SCH ×2 (21:38→23:22)
[2018-02-06] MEDS: Albuterol-Ipratrop 3 mg / 0.5 (3 ml) UD INH SCH ×5 (04:45→23:35)
[2018-02-06 05:43] LABS: HEMOGLOBIN 8.5 g/dL (12.0-16.0); MEAN CELL VOLUME 88.4 fl (81.0-99.0); MEAN CORPUSCULAR HEMOGLOBIN 29.1 pg (27.0-31.0); MEAN CORPUSCULAR HGB CONC 32.9 g/dL (33.0-37.0); RBC 2.92 Mil/uL (3.80-5.20); RED CELL DISTRIBUTION WIDTH 14.8 % (11.5-14.5); WHITE BLOOD COUNT 12.5 K/uL (4.8-10.8)
[2018-02-06 06:03] LABS: CALCIUM 7.8 mg/dL (8.4-10.2)
[2018-02-06] MEDS: Insulin Lispro (humaLOG) 100 Units/ml Inj SC SCH ×4 (06:46→21:49)
[2018-02-06] MEDS: Acetylcysteine 10% 4 ML IH SCH ×2 (08:37→19:02)
[2018-02-06] MEDS: Fluconazole IV 100mg/50 ml NS 50 ML IVPB SCH (09:27)
[2018-02-06] MEDS: guaiFENesin-DM 600-30 mg ER Tab PO SCH ×2 (09:32→17:42)
[2018-02-06] MEDS: Cholecalciferol 1,000 INTLU TAB PO SCH (09:35)
[2018-02-06] MEDS: Meropenem 500 MG in Sodium Chloride 0.9% 100 ML IVPB SCH (10:00)
[2018-02-06] MEDS: Lidocaine 5% Patch TD SCH (10:16)
[2018-02-06 11:48] LABS: % IRON SATURATION 25 % (20-55); IRON 59 ug/dL (37-170); TOTAL IRON BINDING CAPACITY 240 ug/dL (250-450)
--- NOTE | 2018-02-06 12:59 | PN ---
DATE: 02/06/2018 SUBJECTIVE: The patient seen and examined. Interim events noted. Consults noted and appreciated. The patient remains in progressive care unit, on telemetry monitoring. Sleeping, arousable, responsive, conversant. Denies any specific complaint. No chest pain. No shortness of breath. No specific issue reported by nursing staff. the patient is taking medication. PHYSICAL EXAMINATION: GENERAL: The patient is in no acute distress. VITAL SIGNS: Stable. HEART: S1 and S2, normal and regular. LUNGS: Good bilateral air exchange. ABDOMEN: Soft, nontender. EXTREMITIES: No calf swelling. No tenderness. No acute ischemia. No edema. CENTRAL NERVOUS EDEMA: Essentially unchanged. DIAGNOSTIC DATA: Available diagnostic data reviewed. Telemetry monitoring does not reveal significant arrhythmia. ASSESSMENT AND PLAN: Overall, the patient's general medical condition is stable and improving. Plan as ordered. Manpreet Austin MD
--- NOTE | 2018-02-06 13:48 | CP.PCM.PN ---
Subjective - Date & Time of Evaluation Date of Evaluation: 02/06/18 Time of Evaluation: 09:00 - Subjective Subjective: less sob Objective - Vital Signs/Intake and Output Vital Signs (last 24 hours): Temp Pulse Resp BP Pulse Ox 98.0 F 90 18 141/82 94 L 02/06/18 12:48 02/06/18 12:48 02/06/18 12:48 02/06/18 12:48 02/06/18 12:48 - Medications Medications: Current Medications Acetaminophen (Tylenol 325mg Tab) 650 mg PO Q6 PRN PRN Reason: Pain, Mild (1-3) Last Admin: 02/05/18 00:41 Dose: 650 mg Acetylcysteine (Mucomyst 10% 4ml) 2 ml IH RBID [facility] Last Admin: 02/06/18 08:37 Dose: 2 ml Albuterol/Ipratropium (Duoneb 3 Mg/0.5 Mg (3 Ml) Ud) 3 ml INH RQ4 [facility] Last Admin: 02/06/18 08:37 Dose: 3 ml Amlodipine Besylate (Norvasc) 10 mg PO DAILY [facility] Last Admin: 02/06/18 09:33 Dose: 10 mg Bisoprolol Fumarate (Zebeta) 10 mg PO DAILY [facility] Last Admin: 02/06/18 09:35 Dose: 10 mg Cholecalciferol (Vitamin D) 1,000 intlu PO DAILY [facility] Last Admin: 02/06/18 09:35 Dose: 1,000 intlu Clotrimazole (Lotrimin 1%) 1 applic TOP BID [facility] Last Admin: 02/06/18 09:32 Dose: 1 applic Famotidine (Pepcid) 40 mg PO HS [facility] Last Admin: 02/05/18 23:22 Dose: Not Given Ferrous Gluconate (Fergon) 324 mg PO DAILY [facility] Last Admin: 02/06/18 09:28 Dose: 324 mg Furosemide (Lasix) 40 mg PO DAILY [facility] Last Admin: 02/06/18 09:30 Dose: 40 mg Glipizide (Glucotrol) 10 mg PO DAILY [facility] Last Admin: 02/06/18 09:28 Dose: 10 mg Guaifenesin/Dextromethorphan (Mucinex-Dm 600-30 Mg) 1 tab PO BID [facility] Last Admin: 02/06/18 09:32 Dose: 1 tab Fluconazole (Diflucan Iv 100 Mg/50 Ml Ns) 50 mls @ 50 mls/hr IVPB DAILY [facility]; Protocol Last Admin: 02/06/18 09:27 Dose: 50 mls/hr Meropenem 500 mg/ Sodium (Chloride) 100 mls @ 100 mls/hr IVPB Q24H [facility]; Protocol Last Admin: 02/06/18 10:00 Dose: 100 mls/hr Insulin Human Lispro (Humalog) 0 units SC ACHS [facility]; Protocol Last Admin: 02/06/18 13:26 Dose: Not Given Isosorbide Mononitrate (Imdur Er) 30 mg PO DAILY [facility] Last Admin: 02/06/18 09:29 Dose: 30 mg Lidocaine (Lidoderm) 1 ea TD DAILY [facility] Last Admin: 02/06/18 10:16 Dose: 1 ea Mupirocin (Bactroban Ointment) 1 applic TOP BID [facility] Last Admin: 02/06/18 10:17 Dose: 1 applic Pravastatin Sodium (Pravachol) 40 mg PO HS [facility] Last Admin: 02/05/18 23:22 Dose: Not Given Prednisone (Prednisone Tab) 20 mg PO DAILY [facility] Last Admin: 02/06/18 09:00 Dose: 20 mg Sitagliptin Phosphate (Januvia) 100 mg PO DAILY [facility] Last Admin: 02/06/18 09:30 Dose: 100 mg Sucralfate (Carafate Tab) 1 gm PO BIDAC [facility] Last Admin: 02/06/18 10:17 Dose: 1 gm - Labs Labs: 02/06/18 05:10 02/06/18 05:10 PT 10.9 Seconds (9.8-13.1) 02/02/18 12:32 INR 1.0 02/02/18 12:32 APTT 24.7 Seconds (25.6-37.1) L 02/02/18 12:32 - Constitutional Appears: Non-toxic, Chronically Ill - Head Exam Head Exam: NORMOCEPHALIC - Eye Exam Eye Exam: absent: Scleral icterus - ENT Exam ENT Exam: Mucous Membranes Dry - Neck Exam Neck Exam: absent: Lymphadenopathy - Respiratory Exam Respiratory Exam: Decreased Breath Sounds - Cardiovascular Exam Cardiovascular Exam: REGULAR RHYTHM - GI/Abdominal Exam GI & Abdominal Exam: Distended, Soft - Rectal Exam Rectal Exam: Deferred Assessment and Plan (1) Pneumonia Status: Acute (2) COPD (chronic obstructive pulmonary disease) Status: Chronic
--- NOTE | 2018-02-06 17:59 | CP.PCM.PN ---
Subjective - Date & Time of Evaluation Date of Evaluation: 02/06/18 Time of Evaluation: 12:20 - Subjective Subjective: F/U PNA Pt smiling, no A/D, on NC 2 L/M. Objective - Vital Signs/Intake and Output Vital Signs (last 24 hours): Temp Pulse Resp BP Pulse Ox 97.9 F 85 18 117/71 92 L 02/06/18 16:11 02/06/18 16:11 02/06/18 16:11 02/06/18 16:11 02/06/18 16:11 - Medications Medications: Current Medications Acetaminophen (Tylenol 325mg Tab) 650 mg PO Q6 PRN PRN Reason: Pain, Mild (1-3) Last Admin: 02/05/18 00:41 Dose: 650 mg Acetylcysteine (Mucomyst 10% 4ml) 2 ml IH RBID [facility] Last Admin: 02/06/18 08:37 Dose: 2 ml Albuterol/Ipratropium (Duoneb 3 Mg/0.5 Mg (3 Ml) Ud) 3 ml INH RQ4 [facility] Last Admin: 02/06/18 15:24 Dose: 3 ml Amlodipine Besylate (Norvasc) 10 mg PO DAILY [facility] Last Admin: 02/06/18 09:33 Dose: 10 mg Bisoprolol Fumarate (Zebeta) 10 mg PO DAILY [facility] Last Admin: 02/06/18 09:35 Dose: 10 mg Cholecalciferol (Vitamin D) 1,000 intlu PO DAILY [facility] Last Admin: 02/06/18 09:35 Dose: 1,000 intlu Clotrimazole (Lotrimin 1%) 1 applic TOP BID [facility] Last Admin: 02/06/18 17:41 Dose: 1 applic Famotidine (Pepcid) 40 mg PO HS [facility] Last Admin: 02/05/18 23:22 Dose: Not Given Ferrous Gluconate (Fergon) 324 mg PO DAILY [facility] Last Admin: 02/06/18 09:28 Dose: 324 mg Furosemide (Lasix) 40 mg PO DAILY [facility] Last Admin: 02/06/18 09:30 Dose: 40 mg Glipizide (Glucotrol) 10 mg PO DAILY [facility] Last Admin: 02/06/18 09:28 Dose: 10 mg Guaifenesin/Dextromethorphan (Mucinex-Dm 600-30 Mg) 1 tab PO BID [facility] Last Admin: 02/06/18 17:42 Dose: 1 tab Fluconazole (Diflucan Iv 100 Mg/50 Ml Ns) 50 mls @ 50 mls/hr IVPB DAILY [facility]; Protocol Last Admin: 02/06/18 09:27 Dose: 50 mls/hr Meropenem 500 mg/ Sodium (Chloride) 100 mls @ 100 mls/hr IVPB Q24H [facility]; Protocol Last Admin: 02/06/18 10:00 Dose: 100 mls/hr Insulin Human Lispro (Humalog) 0 units SC ACHS [facility]; Protocol Last Admin: 02/06/18 17:41 Dose: Not Given Isosorbide Mononitrate (Imdur Er) 30 mg PO DAILY [facility] Last Admin: 02/06/18 09:29 Dose: 30 mg Lidocaine (Lidoderm) 1 ea TD DAILY [facility] Last Admin: 02/06/18 10:16 Dose: 1 ea Mupirocin (Bactroban Ointment) 1 applic TOP BID [facility] Last Admin: 02/06/18 17:40 Dose: 1 applic Pravastatin Sodium (Pravachol) 40 mg PO HS [facility] Last Admin: 02/05/18 23:22 Dose: Not Given Prednisone (Prednisone Tab) 20 mg PO DAILY [facility] Last Admin: 02/06/18 09:00 Dose: 20 mg Sitagliptin Phosphate (Januvia) 100 mg PO DAILY [facility] Last Admin: 02/06/18 09:30 Dose: 100 mg Sucralfate (Carafate Tab) 1 gm PO BIDAC [facility] Last Admin: 02/06/18 17:40 Dose: 1 gm - Labs Labs: 02/06/18 05:10 02/06/18 05:10 PT 10.9 Seconds (9.8-13.1) 02/02/18 12:32 INR 1.0 02/02/18 12:32 APTT 24.7 Seconds (25.6-37.1) L 02/02/18 12:32 - Constitutional Appears: Chronically Ill - Head Exam Head Exam: NORMAL INSPECTION - Eye Exam Eye Exam: PERRL - ENT Exam ENT Exam: Normal Exam - Neck Exam Neck Exam: Normal Inspection - Respiratory Exam Respiratory Exam: Decreased Breath Sounds (at bases), Rhonchi (b/l scattered), Wheezes (scattered) - Cardiovascular Exam Cardiovascular Exam: REGULAR RHYTHM - GI/Abdominal Exam GI & Abdominal Exam: Soft, Normal Bowel Sounds - Extremities Exam Additional comments: RUE PICC line - Neurological Exam Neurological Exam: Alert, CN II-XII Intact Additional comments: No focal motor/sensory deficit., generalized weakness. - Psychiatric Exam Psychiatric exam: Normal Affect - Skin Skin Exam: Warm Assessment and Plan (1) Pneumonia Status: Acute (2) COPD exacerbation Status: Acute (3) Respiratory failure with hypercapnia Status: Acute (4) Change in mental status Status: Resolved - Assessment and Plan (Free Text) Plan: Continue Merren , Duoneb, Diflucan and rest of Tx.
--- NOTE | 2018-02-06 19:45 | CP.PCM.PN ---
Subjective - Date & Time of Evaluation Date of Evaluation: 02/06/18 Time of Evaluation: 19:45 - Subjective Subjective: pt is feeling better, no sob, no cp, renal function is stable, s/p removal of rt iJV kavitha chilel Objective - Vital Signs/Intake and Output Vital Signs (last 24 hours): Temp Pulse Resp BP Pulse Ox 97.9 F 85 18 117/71 92 L 02/06/18 16:11 02/06/18 16:11 02/06/18 16:11 02/06/18 16:11 02/06/18 16:11 - Medications Medications: Current Medications Acetaminophen (Tylenol 325mg Tab) 650 mg PO Q6 PRN PRN Reason: Pain, Mild (1-3) Last Admin: 02/05/18 00:41 Dose: 650 mg Acetylcysteine (Mucomyst 10% 4ml) 2 ml IH RBID [facility] Last Admin: 02/06/18 19:02 Dose: 2 ml Albuterol/Ipratropium (Duoneb 3 Mg/0.5 Mg (3 Ml) Ud) 3 ml INH RQ4 [facility] Last Admin: 02/06/18 19:02 Dose: 3 ml Amlodipine Besylate (Norvasc) 10 mg PO DAILY [facility] Last Admin: 02/06/18 09:33 Dose: 10 mg Bisoprolol Fumarate (Zebeta) 10 mg PO DAILY [facility] Last Admin: 02/06/18 09:35 Dose: 10 mg Cholecalciferol (Vitamin D) 1,000 intlu PO DAILY [facility] Last Admin: 02/06/18 09:35 Dose: 1,000 intlu Clotrimazole (Lotrimin 1%) 1 applic TOP BID [facility] Last Admin: 02/06/18 17:41 Dose: 1 applic Famotidine (Pepcid) 40 mg PO HS [facility] Last Admin: 02/05/18 23:22 Dose: Not Given Ferrous Gluconate (Fergon) 324 mg PO DAILY [facility] Last Admin: 02/06/18 09:28 Dose: 324 mg Furosemide (Lasix) 40 mg PO DAILY [facility] Last Admin: 02/06/18 09:30 Dose: 40 mg Glipizide (Glucotrol) 10 mg PO DAILY [facility] Last Admin: 02/06/18 09:28 Dose: 10 mg Guaifenesin/Dextromethorphan (Mucinex-Dm 600-30 Mg) 1 tab PO BID [facility] Last Admin: 02/06/18 17:42 Dose: 1 tab Fluconazole (Diflucan Iv 100 Mg/50 Ml Ns) 50 mls @ 50 mls/hr IVPB DAILY [facility]; Protocol Last Admin: 02/06/18 09:27 Dose: 50 mls/hr Meropenem 500 mg/ Sodium (Chloride) 100 mls @ 100 mls/hr IVPB Q24H [facility]; Protocol Last Admin: 02/06/18 10:00 Dose: 100 mls/hr Insulin Human Lispro (Humalog) 0 units SC ACHS [facility]; Protocol Last Admin: 02/06/18 17:41 Dose: Not Given Isosorbide Mononitrate (Imdur Er) 30 mg PO DAILY [facility] Last Admin: 02/06/18 09:29 Dose: 30 mg Lidocaine (Lidoderm) 1 ea TD DAILY [facility] Last Admin: 02/06/18 10:16 Dose: 1 ea Mupirocin (Bactroban Ointment) 1 applic TOP BID [facility] Last Admin: 02/06/18 17:40 Dose: 1 applic Pravastatin Sodium (Pravachol) 40 mg PO HS [facility] Last Admin: 02/05/18 23:22 Dose: Not Given Prednisone (Prednisone Tab) 20 mg PO DAILY [facility] Last Admin: 02/06/18 09:00 Dose: 20 mg Sitagliptin Phosphate (Januvia) 100 mg PO DAILY [facility] Last Admin: 02/06/18 09:30 Dose: 100 mg Sucralfate (Carafate Tab) 1 gm PO BIDAC [facility] Last Admin: 02/06/18 17:40 Dose: 1 gm - Labs Labs: 02/06/18 05:10 02/06/18 05:10 PT 10.9 Seconds (9.8-13.1) 02/02/18 12:32 INR 1.0 02/02/18 12:32 APTT 24.7 Seconds (25.6-37.1) L 02/02/18 12:32 - Constitutional Appears: Well, Non-toxic, No Acute Distress - Head Exam Head Exam: ATRAUMATIC, NORMOCEPHALIC - Eye Exam Eye Exam: EOMI, Normal appearance, PERRL Pupil Exam: NORMAL ACCOMODATION - ENT Exam ENT Exam: Mucous Membranes Moist - Neck Exam Neck Exam: Full ROM, Normal Inspection - Respiratory Exam Respiratory Exam: Clear to Ausculation Bilateral, NORMAL BREATHING PATTERN - Cardiovascular Exam Cardiovascular Exam: REGULAR RHYTHM, +S1, +S2 - GI/Abdominal Exam GI & Abdominal Exam: Soft, Normal Bowel Sounds - Neurological Exam Neurological Exam: Alert, Awake, CN II-XII Intact, Oriented x3 - Psychiatric Exam Psychiatric exam: Normal Affect - Skin Skin Exam: Normal Color, Warm Assessment and Plan - Assessment and Plan (Free Text) Assessment: 78 yo HF with pmh/o htn, dm hld, chf, copd, ? spinal stenosis, ckd with sob, being treated for mycoplasma pneumonia with b/l infiltrates, AMS this am, s/p [employer], pt is more alert, awake 1. CAMPBELL on ckd-3 2. HTN 3. Mycoplasma pneumonia 4. DM 5. s/p AMS, s/p [employer] c/w IV ABx as per ID, renal function is stable. s/p removal of rt IJV kavitha cath physical therapy evaluation
[2018-02-06] MEDS: Pravastatin Sodium 40 MG TAB PO SCH (21:24)
[2018-02-06 21:33] LABS: FOLATE 4.5 ng/mL
[2018-02-07] MEDS: Albuterol-Ipratrop 3 mg / 0.5 (3 ml) UD INH SCH ×6 (05:15→23:46)
[2018-02-07 05:47] LABS: HEMOGLOBIN 9.9 g/dL (12.0-16.0); MEAN CELL VOLUME 88.7 fl (81.0-99.0); MEAN CORPUSCULAR HEMOGLOBIN 29.1 pg (27.0-31.0); MEAN CORPUSCULAR HGB CONC 32.8 g/dL (33.0-37.0); RBC 3.4 Mil/uL (3.80-5.20); RED CELL DISTRIBUTION WIDTH 14.5 % (11.5-14.5); WHITE BLOOD COUNT 12.2 K/uL (4.8-10.8)
[2018-02-07 06:33] LABS: CALCIUM 8.1 mg/dL (8.4-10.2)
[2018-02-07] MEDS: Insulin Lispro (humaLOG) 100 Units/ml Inj SC SCH ×4 (07:03→21:57)
[2018-02-07] MEDS: Acetylcysteine 10% 4 ML IH SCH ×2 (07:35→19:11)
[2018-02-07] MEDS ORDERED: Dextrose 50% SYRINGE Inj (50 ml) IV PRN (08:04)
[2018-02-07] MEDS ORDERED: Glucagon Recombinant 1 mg Inj IM PRN (08:04)
[2018-02-07] MEDS: Cholecalciferol 1,000 INTLU TAB PO SCH (08:57)
[2018-02-07] MEDS: Meropenem 500 MG in Sodium Chloride 0.9% 100 ML IVPB SCH (08:59)
[2018-02-07] MEDS: guaiFENesin-DM 600-30 mg ER Tab PO SCH ×2 (08:59→17:00)
[2018-02-07] MEDS: Lidocaine 5% Patch TD SCH (09:00)
[2018-02-07] MEDS: Fluconazole IV 100mg/50 ml NS 50 ML IVPB SCH (09:08)
--- NOTE | 2018-02-07 09:10 | CP.PCM.PN ---
Subjective - Date & Time of Evaluation Date of Evaluation: 02/06/18 Time of Evaluation: 13:15 - Subjective Subjective: no overnight events Objective - Vital Signs/Intake and Output Vital Signs (last 24 hours): Temp Pulse Resp BP Pulse Ox 97.3 F L 75 18 120/66 95 02/07/18 08:00 02/07/18 08:57 02/07/18 08:00 02/07/18 09:00 02/07/18 08:00 Intake and Output: 02/07/18 02/07/18 06:59 18:59 Intake Total 600 Balance 600 - Medications Medications: Current Medications Acetaminophen (Tylenol 325mg Tab) 650 mg PO Q6 PRN PRN Reason: Pain, Mild (1-3) Last Admin: 02/05/18 00:41 Dose: 650 mg Acetylcysteine (Mucomyst 10% 4ml) 2 ml IH RBID [facility] Last Admin: 02/07/18 07:35 Dose: 2 ml Albuterol/Ipratropium (Duoneb 3 Mg/0.5 Mg (3 Ml) Ud) 3 ml INH RQ4 [facility] Last Admin: 02/07/18 07:36 Dose: 3 ml Amlodipine Besylate (Norvasc) 10 mg PO DAILY [facility] Last Admin: 02/07/18 08:57 Dose: 10 mg Bisoprolol Fumarate (Zebeta) 10 mg PO DAILY [facility] Last Admin: 02/07/18 08:58 Dose: 10 mg Cholecalciferol (Vitamin D) 1,000 intlu PO DAILY [facility] Last Admin: 02/07/18 08:57 Dose: 1,000 intlu Clotrimazole (Lotrimin 1%) 1 applic TOP BID [facility] Last Admin: 02/07/18 09:00 Dose: 1 applic Dextrose (Dextrose 50% Inj) 0 ml IV STAT PRN; Protocol PRN Reason: Hypoglycemia Protocol Dextrose (Glutose 15) 0 gm PO ONCE PRN; Protocol PRN Reason: Hypoglycemia Protocol Famotidine (Pepcid) 40 mg PO HS [facility] Last Admin: 02/06/18 21:24 Dose: 40 mg Ferrous Gluconate (Fergon) 324 mg PO DAILY [facility] Last Admin: 02/07/18 08:59 Dose: 324 mg Furosemide (Lasix) 40 mg PO DAILY [facility] Last Admin: 02/07/18 09:00 Dose: 40 mg Glipizide (Glucotrol) 10 mg PO DAILY [facility] Last Admin: 02/07/18 08:59 Dose: 10 mg Glucagon (Glucagen Diagnostic Kit) 0 mg IM STAT PRN; Protocol PRN Reason: Hypoglycemia Protocol Guaifenesin/Dextromethorphan (Mucinex-Dm 600-30 Mg) 1 tab PO BID [facility] Last Admin: 02/07/18 08:59 Dose: 1 tab Fluconazole (Diflucan Iv 100 Mg/50 Ml Ns) 50 mls @ 50 mls/hr IVPB DAILY [facility]; Protocol Last Admin: 02/06/18 09:27 Dose: 50 mls/hr Meropenem 500 mg/ Sodium (Chloride) 100 mls @ 100 mls/hr IVPB Q24H [facility]; Protocol Last Admin: 02/07/18 08:59 Dose: 100 mls/hr Insulin Human Lispro (Humalog) 0 units SC ACHS [facility]; Protocol Last Admin: 02/07/18 07:03 Dose: Not Given Isosorbide Mononitrate (Imdur Er) 30 mg PO DAILY [facility] Last Admin: 02/07/18 08:58 Dose: 30 mg Lidocaine (Lidoderm) 1 ea TD DAILY [facility] Last Admin: 02/07/18 09:00 Dose: 1 ea Mupirocin (Bactroban Ointment) 1 applic TOP BID [facility] Last Admin: 02/07/18 08:56 Dose: 1 applic Pravastatin Sodium (Pravachol) 40 mg PO HS [facility] Last Admin: 02/06/18 21:24 Dose: 40 mg Prednisone (Prednisone Tab) 20 mg PO DAILY [facility] Last Admin: 02/07/18 08:58 Dose: 20 mg Sitagliptin Phosphate (Januvia) 100 mg PO DAILY [facility] Last Admin: 02/07/18 08:58 Dose: 100 mg Sucralfate (Carafate Tab) 1 gm PO BIDAC [facility] Last Admin: 02/07/18 08:57 Dose: 1 gm - Labs Labs: 02/07/18 05:10 02/07/18 05:10 PT 10.9 Seconds (9.8-13.1) 02/02/18 12:32 INR 1.0 02/02/18 12:32 APTT 24.7 Seconds (25.6-37.1) L 02/02/18 12:32 - Head Exam Head Exam: NORMOCEPHALIC - Neck Exam Neck Exam: Normal Inspection - Respiratory Exam Respiratory Exam: Wheezes - Cardiovascular Exam Cardiovascular Exam: REGULAR RHYTHM - GI/Abdominal Exam GI & Abdominal Exam: Soft, Normal Bowel Sounds Assessment and Plan - Assessment and Plan (Free Text) Assessment: 78 yo female with GERD tolerating diet clinically improving dc planning when able
--- NOTE | 2018-02-07 09:53 | CP.PCM.PN ---
Subjective - Date & Time of Evaluation Date of Evaluation: 02/07/18 Time of Evaluation: 09:52 - Subjective Subjective: no overnight events Objective - Vital Signs/Intake and Output Vital Signs (last 24 hours): Temp Pulse Resp BP Pulse Ox 97.3 F L 75 18 120/66 95 02/07/18 08:00 02/07/18 08:57 02/07/18 08:00 02/07/18 09:00 02/07/18 08:00 Intake and Output: 02/07/18 02/07/18 06:59 18:59 Intake Total 600 Balance 600 - Medications Medications: Current Medications Acetaminophen (Tylenol 325mg Tab) 650 mg PO Q6 PRN PRN Reason: Pain, Mild (1-3) Last Admin: 02/05/18 00:41 Dose: 650 mg Acetylcysteine (Mucomyst 10% 4ml) 2 ml IH RBID [facility] Last Admin: 02/07/18 07:35 Dose: 2 ml Albuterol/Ipratropium (Duoneb 3 Mg/0.5 Mg (3 Ml) Ud) 3 ml INH RQ4 [facility] Last Admin: 02/07/18 07:36 Dose: 3 ml Amlodipine Besylate (Norvasc) 10 mg PO DAILY [facility] Last Admin: 02/07/18 08:57 Dose: 10 mg Bisoprolol Fumarate (Zebeta) 10 mg PO DAILY [facility] Last Admin: 02/07/18 08:58 Dose: 10 mg Cholecalciferol (Vitamin D) 1,000 intlu PO DAILY [facility] Last Admin: 02/07/18 08:57 Dose: 1,000 intlu Clotrimazole (Lotrimin 1%) 1 applic TOP BID [facility] Last Admin: 02/07/18 09:00 Dose: 1 applic Dextrose (Dextrose 50% Inj) 0 ml IV STAT PRN; Protocol PRN Reason: Hypoglycemia Protocol Dextrose (Glutose 15) 0 gm PO ONCE PRN; Protocol PRN Reason: Hypoglycemia Protocol Famotidine (Pepcid) 40 mg PO HS [facility] Last Admin: 02/06/18 21:24 Dose: 40 mg Ferrous Gluconate (Fergon) 324 mg PO DAILY [facility] Last Admin: 02/07/18 08:59 Dose: 324 mg Furosemide (Lasix) 40 mg PO DAILY [facility] Last Admin: 02/07/18 09:00 Dose: 40 mg Glipizide (Glucotrol) 10 mg PO DAILY [facility] Last Admin: 02/07/18 08:59 Dose: 10 mg Glucagon (Glucagen Diagnostic Kit) 0 mg IM STAT PRN; Protocol PRN Reason: Hypoglycemia Protocol Guaifenesin/Dextromethorphan (Mucinex-Dm 600-30 Mg) 1 tab PO BID [facility] Last Admin: 02/07/18 08:59 Dose: 1 tab Fluconazole (Diflucan Iv 100 Mg/50 Ml Ns) 50 mls @ 50 mls/hr IVPB DAILY [facility]; Protocol Last Admin: 02/07/18 09:08 Dose: 50 mls/hr Meropenem 500 mg/ Sodium (Chloride) 100 mls @ 100 mls/hr IVPB Q24H [facility]; Protocol Last Admin: 02/07/18 08:59 Dose: 100 mls/hr Insulin Human Lispro (Humalog) 0 units SC ACHS [facility]; Protocol Last Admin: 02/07/18 07:03 Dose: Not Given Isosorbide Mononitrate (Imdur Er) 30 mg PO DAILY [facility] Last Admin: 02/07/18 08:58 Dose: 30 mg Lidocaine (Lidoderm) 1 ea TD DAILY [facility] Last Admin: 02/07/18 09:00 Dose: 1 ea Mupirocin (Bactroban Ointment) 1 applic TOP BID [facility] Last Admin: 02/07/18 08:56 Dose: 1 applic Pravastatin Sodium (Pravachol) 40 mg PO HS [facility] Last Admin: 02/06/18 21:24 Dose: 40 mg Prednisone (Prednisone Tab) 20 mg PO DAILY [facility] Last Admin: 02/07/18 08:58 Dose: 20 mg Sitagliptin Phosphate (Januvia) 100 mg PO DAILY [facility] Last Admin: 02/07/18 08:58 Dose: 100 mg Sucralfate (Carafate Tab) 1 gm PO BIDAC [facility] Last Admin: 02/07/18 08:57 Dose: 1 gm - Labs Labs: 02/07/18 05:10 02/07/18 05:10 PT 10.9 Seconds (9.8-13.1) 02/02/18 12:32 INR 1.0 02/02/18 12:32 APTT 24.7 Seconds (25.6-37.1) L 02/02/18 12:32 - Head Exam Head Exam: NORMOCEPHALIC - Cardiovascular Exam Cardiovascular Exam: REGULAR RHYTHM - GI/Abdominal Exam GI & Abdominal Exam: Soft, Normal Bowel Sounds Assessment and Plan - Assessment and Plan (Free Text) Assessment: 78 yo female with gerd doing well dc planning
--- NOTE | 2018-02-07 11:26 | VASCULAR ---
Removal of right chest catheter History: Stable renal function. Procedure and findings: Informed consent was obtained from the patient after discussing relative risks benefits. The right neck region was prepped and draped in the usual sterile techniques. The sutures were cut and the hemodialysis catheter was removed. Hemostasis was achieved with manual compression. A sterile dressing was applied. Patient tolerated the procedure well. Impression: Successful removal of right-sided non tunneled hemodialysis catheter.
--- NOTE | 2018-02-07 14:29 | CP.PCM.PN ---
Subjective - Date & Time of Evaluation Date of Evaluation: 02/07/18 Time of Evaluation: 08:55 - Subjective Subjective: 78 y/o F was seen and examined by bedside with Dr Gil. Pt reports feeling well. Pt afebrile, tolerating PO with NO acute event overnight. Objective - Vital Signs/Intake and Output Vital Signs (last 24 hours): Temp Pulse Resp BP Pulse Ox 97.1 F L 93 H 20 133/68 96 02/07/18 13:00 02/07/18 13:00 02/07/18 13:00 02/07/18 13:00 02/07/18 13:00 Intake and Output: 02/07/18 02/07/18 06:59 18:59 Intake Total 600 Balance 600 - Medications Medications: Current Medications Acetaminophen (Tylenol 325mg Tab) 650 mg PO Q6 PRN PRN Reason: Pain, Mild (1-3) Last Admin: 02/05/18 00:41 Dose: 650 mg Acetylcysteine (Mucomyst 10% 4ml) 2 ml IH RBID [facility] Last Admin: 02/07/18 07:35 Dose: 2 ml Albuterol/Ipratropium (Duoneb 3 Mg/0.5 Mg (3 Ml) Ud) 3 ml INH RQ4 [facility] Last Admin: 02/07/18 11:24 Dose: 3 ml Amlodipine Besylate (Norvasc) 10 mg PO DAILY [facility] Last Admin: 02/07/18 08:57 Dose: 10 mg Bisoprolol Fumarate (Zebeta) 10 mg PO DAILY [facility] Last Admin: 02/07/18 08:58 Dose: 10 mg Cholecalciferol (Vitamin D) 1,000 intlu PO DAILY [facility] Last Admin: 02/07/18 08:57 Dose: 1,000 intlu Clotrimazole (Lotrimin 1%) 1 applic TOP BID [facility] Last Admin: 02/07/18 09:00 Dose: 1 applic Dextrose (Dextrose 50% Inj) 0 ml IV STAT PRN; Protocol PRN Reason: Hypoglycemia Protocol Dextrose (Glutose 15) 0 gm PO ONCE PRN; Protocol PRN Reason: Hypoglycemia Protocol Famotidine (Pepcid) 40 mg PO HS [facility] Last Admin: 02/06/18 21:24 Dose: 40 mg Ferrous Gluconate (Fergon) 324 mg PO DAILY [facility] Last Admin: 02/07/18 08:59 Dose: 324 mg Furosemide (Lasix) 40 mg PO DAILY [facility] Last Admin: 02/07/18 09:00 Dose: 40 mg Glipizide (Glucotrol) 10 mg PO DAILY [facility] Last Admin: 02/07/18 08:59 Dose: 10 mg Glucagon (Glucagen Diagnostic Kit) 0 mg IM STAT PRN; Protocol PRN Reason: Hypoglycemia Protocol Guaifenesin/Dextromethorphan (Mucinex-Dm 600-30 Mg) 1 tab PO BID [facility] Last Admin: 02/07/18 08:59 Dose: 1 tab Fluconazole (Diflucan Iv 100 Mg/50 Ml Ns) 50 mls @ 50 mls/hr IVPB DAILY [facility]; Protocol Last Admin: 02/07/18 09:08 Dose: 50 mls/hr Meropenem 500 mg/ Sodium (Chloride) 100 mls @ 100 mls/hr IVPB Q24H [facility]; Protocol Last Admin: 02/07/18 08:59 Dose: 100 mls/hr Insulin Human Lispro (Humalog) 0 units SC ACHS [facility]; Protocol Last Admin: 02/07/18 12:42 Dose: 2 units Isosorbide Mononitrate (Imdur Er) 30 mg PO DAILY [facility] Last Admin: 02/07/18 08:58 Dose: 30 mg Lidocaine (Lidoderm) 1 ea TD DAILY [facility] Last Admin: 02/07/18 09:00 Dose: 1 ea Mupirocin (Bactroban Ointment) 1 applic TOP BID [facility] Last Admin: 02/07/18 08:56 Dose: 1 applic Pravastatin Sodium (Pravachol) 40 mg PO HS [facility] Last Admin: 02/06/18 21:24 Dose: 40 mg Prednisone (Prednisone Tab) 20 mg PO DAILY [facility] Last Admin: 02/07/18 08:58 Dose: 20 mg Sitagliptin Phosphate (Januvia) 100 mg PO DAILY [facility] Last Admin: 02/07/18 08:58 Dose: 100 mg Sucralfate (Carafate Tab) 1 gm PO BIDAC [facility] Last Admin: 02/07/18 08:57 Dose: 1 gm - Labs Labs: 02/07/18 05:10 02/07/18 05:10 PT 10.9 Seconds (9.8-13.1) 02/02/18 12:32 INR 1.0 02/02/18 12:32 APTT 24.7 Seconds (25.6-37.1) L 02/02/18 12:32 - Additional Findings Additional findings: - Constitutional Appears: No Acute Distress - Head Exam Head Exam: ATRAUMATIC, NORMAL INSPECTION - Eye Exam Eye Exam: EOMI, Normal appearance - ENT Exam ENT Exam: Mucous Membranes Moist - Neck Exam Neck Exam: Full ROM. absent: Meningismus - Respiratory Exam Respiratory Exam: NORMAL BREATHING PATTERN. absent: Rales, Wheezes, Respiratory Distress - Cardiovascular Exam Cardiovascular Exam: +S1, +S2 - GI/Abdominal Exam GI & Abdominal Exam: Soft. absent: Guarding, Rigid, Tenderness - Extremities Exam Extremities Exam: absent: Calf Tenderness - Neurological Exam Neurological Exam: Alert, Awake Assessment and Plan - Assessment and Plan (Free Text) Assessment: 77 y/o female patient admitted due to pneumonia, positive Mycoplasma serum IgM, sputum cx positive for yeasts, admission complicated with CAMPBELL on HD. PLAN: --Afebrile, VS stable. --Discharge plan is being arranged. --On Meropenem and Fluconazole IV treatments. --Topical Clotrimazole ordered for b/l breast and lower abdomen irritation. --GI consulted, input appreciated --ID on board, input appreciated --Pulmonology on board, input appreciated --Nephro consulted, input appreciated --continue rest of plan as ordered Case discussed with Dr Gil who agrees with the above RUDOLPH Solomon PGY-2
--- NOTE | 2018-02-07 15:47 | CP.PCM.PN ---
Subjective - Date & Time of Evaluation Date of Evaluation: 02/07/18 Time of Evaluation: 12:30 - Subjective Subjective: F/U PNA Awake, No A/D, no SOB. Objective - Vital Signs/Intake and Output Vital Signs (last 24 hours): Temp Pulse Resp BP Pulse Ox 97.1 F L 93 H 20 133/68 96 02/07/18 13:00 02/07/18 13:00 02/07/18 13:00 02/07/18 13:00 02/07/18 13:00 Intake and Output: 02/07/18 02/07/18 06:59 18:59 Intake Total 600 Balance 600 - Medications Medications: Current Medications Acetaminophen (Tylenol 325mg Tab) 650 mg PO Q6 PRN PRN Reason: Pain, Mild (1-3) Last Admin: 02/05/18 00:41 Dose: 650 mg Acetylcysteine (Mucomyst 10% 4ml) 2 ml IH RBID [facility] Last Admin: 02/07/18 07:35 Dose: 2 ml Albuterol/Ipratropium (Duoneb 3 Mg/0.5 Mg (3 Ml) Ud) 3 ml INH RQ4 [facility] Last Admin: 02/07/18 15:39 Dose: 3 ml Amlodipine Besylate (Norvasc) 10 mg PO DAILY [facility] Last Admin: 02/07/18 08:57 Dose: 10 mg Bisoprolol Fumarate (Zebeta) 10 mg PO DAILY [facility] Last Admin: 02/07/18 08:58 Dose: 10 mg Cholecalciferol (Vitamin D) 1,000 intlu PO DAILY [facility] Last Admin: 02/07/18 08:57 Dose: 1,000 intlu Clotrimazole (Lotrimin 1%) 1 applic TOP BID [facility] Last Admin: 02/07/18 09:00 Dose: 1 applic Dextrose (Dextrose 50% Inj) 0 ml IV STAT PRN; Protocol PRN Reason: Hypoglycemia Protocol Dextrose (Glutose 15) 0 gm PO ONCE PRN; Protocol PRN Reason: Hypoglycemia Protocol Famotidine (Pepcid) 40 mg PO HS [facility] Last Admin: 02/06/18 21:24 Dose: 40 mg Ferrous Gluconate (Fergon) 324 mg PO DAILY [facility] Last Admin: 02/07/18 08:59 Dose: 324 mg Furosemide (Lasix) 40 mg PO DAILY [facility] Last Admin: 02/07/18 09:00 Dose: 40 mg Glipizide (Glucotrol) 10 mg PO DAILY [facility] Last Admin: 02/07/18 08:59 Dose: 10 mg Glucagon (Glucagen Diagnostic Kit) 0 mg IM STAT PRN; Protocol PRN Reason: Hypoglycemia Protocol Guaifenesin/Dextromethorphan (Mucinex-Dm 600-30 Mg) 1 tab PO BID [facility] Last Admin: 02/07/18 08:59 Dose: 1 tab Fluconazole (Diflucan Iv 100 Mg/50 Ml Ns) 50 mls @ 50 mls/hr IVPB DAILY [facility]; Protocol Last Admin: 02/07/18 09:08 Dose: 50 mls/hr Meropenem 500 mg/ Sodium (Chloride) 100 mls @ 100 mls/hr IVPB Q24H [facility]; Protocol Last Admin: 02/07/18 08:59 Dose: 100 mls/hr Insulin Human Lispro (Humalog) 0 units SC ACHS [facility]; Protocol Last Admin: 02/07/18 12:42 Dose: 2 units Isosorbide Mononitrate (Imdur Er) 30 mg PO DAILY [facility] Last Admin: 02/07/18 08:58 Dose: 30 mg Lidocaine (Lidoderm) 1 ea TD DAILY [facility] Last Admin: 02/07/18 09:00 Dose: 1 ea Mupirocin (Bactroban Ointment) 1 applic TOP BID [facility] Last Admin: 02/07/18 08:56 Dose: 1 applic Pravastatin Sodium (Pravachol) 40 mg PO HS [facility] Last Admin: 02/06/18 21:24 Dose: 40 mg Prednisone (Prednisone Tab) 20 mg PO DAILY [facility] Last Admin: 02/07/18 08:58 Dose: 20 mg Sitagliptin Phosphate (Januvia) 100 mg PO DAILY [facility] Last Admin: 02/07/18 08:58 Dose: 100 mg Sucralfate (Carafate Tab) 1 gm PO BIDAC [facility] Last Admin: 02/07/18 08:57 Dose: 1 gm - Labs Labs: 02/07/18 05:10 02/07/18 05:10 PT 10.9 Seconds (9.8-13.1) 02/02/18 12:32 INR 1.0 02/02/18 12:32 APTT 24.7 Seconds (25.6-37.1) L 02/02/18 12:32 - Constitutional Appears: Chronically Ill - Head Exam Head Exam: NORMAL INSPECTION - Eye Exam Eye Exam: PERRL - ENT Exam ENT Exam: Normal Exam - Neck Exam Neck Exam: Normal Inspection - Respiratory Exam Respiratory Exam: Decreased Breath Sounds (at bases), Rhonchi (scattered b/l) - Cardiovascular Exam Cardiovascular Exam: REGULAR RHYTHM - GI/Abdominal Exam GI & Abdominal Exam: Soft, Normal Bowel Sounds - Extremities Exam Additional comments: RUE PICC line - Neurological Exam Neurological Exam: Awake, CN II-XII Intact Additional comments: No focal motor/sensory deficit - Psychiatric Exam Psychiatric exam: Normal Mood - Skin Skin Exam: Warm Assessment and Plan (1) Pneumonia Status: Acute (2) COPD exacerbation Status: Acute (3) Respiratory failure with hypercapnia Status: Acute (4) Change in mental status Status: Resolved - Assessment and Plan (Free Text) Plan: F/U CT Chest, continue Prednisone and rest of Tx.
--- NOTE | 2018-02-07 17:51 | CT ---
Date of service: 02/07/2018 PROCEDURE: CT Chest without contrast HISTORY: f/u pna COMPARISON: 02/03/2018 TECHNIQUE: Contiguous axial images were obtained through the chest without intravenous contrast enhancement. Sagittal and coronal reconstructions were performed. Radiation dose: Total exam DLP = 423.72 mGy-cm. This CT exam was performed using one or more of the following dose reduction techniques: Automated exposure control, adjustment of the mA and/or kV according to patient size, and/or use of iterative reconstruction technique. FINDINGS: LUNGS: Progressive compressive atelectasis left lung related to increasing left pleural effusion. No new infiltrates identified on the present study. MEDIASTINUM: Unremarkable thoracic aorta. No aneurysm. Normal sized heart. Main pulmonary artery unremarkable. No vascular congestion. No lymphadenopathy. No aortic atherosclerotic calcification. PLEURA: Stable right pleural effusion. BONES: No fracture. No destructive lesion. UPPER ABDOMEN: Grossly unremarkable. OTHER FINDINGS: Persistent dilatation of the esophagus in its entirety with air-fluid level. IMPRESSION: Interval increase in left pleural effusion, commensurate decrease in aerated left lung. Otherwise stable findings.
[2018-02-07] MEDS: Pravastatin Sodium 40 MG TAB PO SCH (21:13)
[2018-02-08] MEDS: Albuterol-Ipratrop 3 mg / 0.5 (3 ml) UD INH SCH ×6 (04:42→23:30)
[2018-02-08] MEDS: Insulin Lispro (humaLOG) 100 Units/ml Inj SC SCH ×4 (06:31→22:00)
[2018-02-08] MEDS: Lidocaine 5% Patch TD SCH (08:24)
[2018-02-08] MEDS: Cholecalciferol 1,000 INTLU TAB PO SCH (08:24)
[2018-02-08] MEDS: guaiFENesin-DM 600-30 mg ER Tab PO SCH ×2 (08:26→16:51)
[2018-02-08] MEDS: Meropenem 500 MG in Sodium Chloride 0.9% 100 ML IVPB SCH (08:28)
[2018-02-08] MEDS: Fluconazole IV 100mg/50 ml NS 50 ML IVPB SCH (08:36)
[2018-02-08] MEDS: Acetylcysteine 10% 4 ML IH SCH ×2 (08:40→19:39)
--- NOTE | 2018-02-08 08:41 | CP.PCM.PN ---
<Jorge Del Toro - Last Filed: 02/08/18 08:38> Subjective - Date & Time of Evaluation Date of Evaluation: 02/08/18 Time of Evaluation: 07:07 - Subjective Subjective: 78 y/o F was seen and examined by bedside with Dr Austin. Pt reports feeling well, responsive, denies chest pain, SOB, abdominal pain, nausea or vomiting. Pt afebr ile, tolerating PO with NO acute event overnight. Objective - Vital Signs/Intake and Output Vital Signs (last 24 hours): Temp Pulse Resp BP Pulse Ox 98.2 F 91 H 18 127/70 96 02/08/18 04:44 02/08/18 08:25 02/08/18 04:44 02/08/18 08:25 02/08/18 04:44 - Medications Medications: Current Medications Acetaminophen (Tylenol 325mg Tab) 650 mg PO Q6 PRN PRN Reason: Pain, Mild (1-3) Last Admin: 02/05/18 00:41 Dose: 650 mg Acetylcysteine (Mucomyst 10% 4ml) 2 ml IH RBID [facility] Last Admin: 02/07/18 19:11 Dose: 2 ml Albuterol/Ipratropium (Duoneb 3 Mg/0.5 Mg (3 Ml) Ud) 3 ml INH RQ4 [facility] Last Admin: 02/08/18 07:57 Dose: 3 ml Amlodipine Besylate (Norvasc) 10 mg PO DAILY [facility] Last Admin: 02/08/18 08:25 Dose: 10 mg Bisoprolol Fumarate (Zebeta) 10 mg PO DAILY [facility] Last Admin: 02/08/18 08:24 Dose: 10 mg Cholecalciferol (Vitamin D) 1,000 intlu PO DAILY [facility] Last Admin: 02/08/18 08:24 Dose: 1,000 intlu Clotrimazole (Lotrimin 1%) 1 applic TOP BID [facility] Last Admin: 02/08/18 08:24 Dose: 1 applic Dextrose (Dextrose 50% Inj) 0 ml IV STAT PRN; Protocol PRN Reason: Hypoglycemia Protocol Dextrose (Glutose 15) 0 gm PO ONCE PRN; Protocol PRN Reason: Hypoglycemia Protocol Famotidine (Pepcid) 40 mg PO HS [facility] Last Admin: 02/07/18 21:13 Dose: 40 mg Ferrous Gluconate (Fergon) 324 mg PO DAILY [facility] Last Admin: 02/08/18 08:25 Dose: 324 mg Furosemide (Lasix) 40 mg PO DAILY [facility] Last Admin: 02/08/18 08:25 Dose: 40 mg Glipizide (Glucotrol) 10 mg PO DAILY [facility] Last Admin: 02/08/18 08:26 Dose: 10 mg Glucagon (Glucagen Diagnostic Kit) 0 mg IM STAT PRN; Protocol PRN Reason: Hypoglycemia Protocol Guaifenesin/Dextromethorphan (Mucinex-Dm 600-30 Mg) 1 tab PO BID [facility] Last Admin: 02/08/18 08:26 Dose: 1 tab Fluconazole (Diflucan Iv 100 Mg/50 Ml Ns) 50 mls @ 50 mls/hr IVPB DAILY [facility]; Protocol Last Admin: 02/08/18 08:36 Dose: 50 mls/hr Meropenem 500 mg/ Sodium (Chloride) 100 mls @ 100 mls/hr IVPB Q24H [facility]; Protocol Last Admin: 02/08/18 08:28 Dose: 100 mls/hr Insulin Human Lispro (Humalog) 0 units SC ACHS [facility]; Protocol Last Admin: 02/08/18 06:31 Dose: Not Given Isosorbide Mononitrate (Imdur Er) 30 mg PO DAILY [facility] Last Admin: 02/08/18 08:29 Dose: 30 mg Lidocaine (Lidoderm) 1 ea TD DAILY [facility] Last Admin: 02/08/18 08:24 Dose: 1 ea Mupirocin (Bactroban Ointment) 1 applic TOP BID [facility] Last Admin: 02/08/18 08:24 Dose: 1 applic Pravastatin Sodium (Pravachol) 40 mg PO HS [facility] Last Admin: 02/07/18 21:13 Dose: 40 mg Prednisone (Prednisone Tab) 20 mg PO DAILY [facility] Last Admin: 02/08/18 08:30 Dose: 20 mg Sitagliptin Phosphate (Januvia) 100 mg PO DAILY [facility] Last Admin: 02/08/18 08:28 Dose: 100 mg Sucralfate (Carafate Tab) 1 gm PO BIDAC [facility] Last Admin: 02/08/18 08:29 Dose: 1 gm - Labs Labs: 02/07/18 05:10 02/07/18 05:10 PT 10.9 Seconds (9.8-13.1) 02/02/18 12:32 INR 1.0 02/02/18 12:32 APTT 24.7 Seconds (25.6-37.1) L 02/02/18 12:32 - Additional Findings Additional findings: - Constitutional Appears: No Acute Distress - Head Exam Head Exam: ATRAUMATIC, NORMAL INSPECTION - Eye Exam Eye Exam: EOMI, Normal appearance - ENT Exam ENT Exam: Mucous Membranes Moist - Neck Exam Neck Exam: Full ROM. absent: Meningismus - Respiratory Exam Respiratory Exam: NORMAL BREATHING PATTERN. absent: Rales, Wheezes, Respiratory Distress - Cardiovascular Exam Cardiovascular Exam: +S1, +S2 - GI/Abdominal Exam GI & Abdominal Exam: Soft. absent: Guarding, Rigid, Tenderness - Extremities Exam Extremities Exam: absent: Calf Tenderness - Neurological Exam Neurological Exam: Alert, Awake Assessment and Plan - Assessment and Plan (Free Text) Assessment: 77 y/o female patient admitted due to pneumonia, positive Mycoplasma serum IgM, sputum cx positive for yeasts, admission complicated with CAMPBELL on HD. PLAN: --Afebrile, VS stable. --Discharge after pulmonology clearance and recommendations. --On Meropenem and Fluconazole IV treatments. --GI consulted, input appreciated --ID on board, input appreciated --Pulmonology on board, input appreciated --Nephro consulted, input appreciated --continue rest of plan as ordered Case discussed with Dr Austin who agrees with the above RUDOLPH Solomon PGY-2 <Manpreet Austin - Last Filed: 02/09/18 06:52> Objective - Vital Signs/Intake and Output Vital Signs (last 24 hours): Temp Pulse Resp BP Pulse Ox 98.9 F 88 18 137/73 95 02/09/18 05:11 02/09/18 05:11 02/09/18 05:11 02/09/18 05:11 02/09/18 05:11 Intake and Output: 02/08/18 02/09/18 23:59 11:59 Intake Total 900 Output Total 1500 Balance -600 - Medications Medications: Current Medications Acetaminophen (Tylenol 325mg Tab) 650 mg PO Q6 PRN PRN Reason: Pain, Mild (1-3) Last Admin: 02/08/18 20:55 Dose: 650 mg Acetylcysteine (Mucomyst 10% 4ml) 2 ml IH RBID [facility] Last Admin: 02/08/18 19:39 Dose: 2 ml Albuterol/Ipratropium (Duoneb 3 Mg/0.5 Mg (3 Ml) Ud) 3 ml INH RQ4 [facility] Last Admin: 02/09/18 03:42 Dose: 3 ml Amlodipine Besylate (Norvasc) 10 mg PO DAILY [facility] Last Admin: 02/08/18 08:25 Dose: 10 mg Bisoprolol Fumarate (Zebeta) 10 mg PO DAILY [facility] Last Admin: 02/08/18 08:24 Dose: 10 mg Cholecalciferol (Vitamin D) 1,000 intlu PO DAILY [facility] Last Admin: 02/08/18 08:24 Dose: 1,000 intlu Clotrimazole (Lotrimin 1%) 1 applic TOP BID [facility] Last Admin: 02/08/18 16:51 Dose: 1 applic Dextrose (Dextrose 50% Inj) 0 ml IV STAT PRN; Protocol PRN Reason: Hypoglycemia Protocol Dextrose (Glutose 15) 0 gm PO ONCE PRN; Protocol PRN Reason: Hypoglycemia Protocol Famotidine (Pepcid) 40 mg PO HS [facility] Last Admin: 02/08/18 20:59 Dose: 40 mg Ferrous Gluconate (Fergon) 324 mg PO DAILY [facility] Last Admin: 02/08/18 08:25 Dose: 324 mg Furosemide (Lasix) 40 mg PO DAILY [facility] Last Admin: 02/08/18 08:25 Dose: 40 mg Glipizide (Glucotrol) 10 mg PO DAILY [facility] Last Admin: 02/08/18 08:26 Dose: 10 mg Glucagon (Glucagen Diagnostic Kit) 0 mg IM STAT PRN; Protocol PRN Reason: Hypoglycemia Protocol Guaifenesin/Dextromethorphan (Mucinex-Dm 600-30 Mg) 1 tab PO BID [facility] Last Admin: 02/08/18 16:51 Dose: 1 tab Fluconazole (Diflucan Iv 100 Mg/50 Ml Ns) 50 mls @ 50 mls/hr IVPB DAILY [facility]; Protocol Last Admin: 02/08/18 08:36 Dose: 50 mls/hr Insulin Human Lispro (Humalog) 0 units SC ACHS [facility]; Protocol Last Admin: 02/08/18 22:00 Dose: Not Given Isosorbide Mononitrate (Imdur Er) 30 mg PO DAILY [facility] Last Admin: 02/08/18 08:29 Dose: 30 mg Lidocaine (Lidoderm) 1 ea TD DAILY [facility] Last Admin: 02/08/18 08:24 Dose: 1 ea Mupirocin (Bactroban Ointment) 1 applic TOP BID [facility] Last Admin: 02/08/18 16:50 Dose: 1 applic Pravastatin Sodium (Pravachol) 40 mg PO HS [facility] Last Admin: 02/08/18 20:59 Dose: 40 mg Prednisone (Prednisone Tab) 20 mg PO DAILY [facility] Last Admin: 02/08/18 08:30 Dose: 20 mg Sitagliptin Phosphate (Januvia) 100 mg PO DAILY [facility] Last Admin: 02/08/18 08:28 Dose: 100 mg Sucralfate (Carafate Tab) 1 gm PO BIDAC [facility] Last Admin: 02/08/18 16:51 Dose: 1 gm - Labs Labs: 02/07/18 05:10 02/07/18 05:10 PT 10.9 Seconds (9.8-13.1) 02/02/18 12:32 INR 1.0 02/02/18 12:32 APTT 24.7 Seconds (25.6-37.1) L 02/02/18 12:32 Assessment and Plan - Assessment and Plan (Free Text) Assessment: Patient was personally seen and examined by me in rounds with residents. Available labs and diagnostic data reviewed. Case, Patient's condition and management plan discussed with residents in rounds. Agree with resident's progress note. Plan: As ordered.
--- NOTE | 2018-02-08 11:29 | CP.PCM.PN ---
Subjective - Date & Time of Evaluation Date of Evaluation: 02/08/18 Time of Evaluation: 11:29 - Subjective Subjective: pt is not in acute distress, no cp, no palpitation, no nausea, no vomitings Objective - Vital Signs/Intake and Output Vital Signs (last 24 hours): Temp Pulse Resp BP Pulse Ox 98.1 F 91 H 20 127/70 96 02/08/18 09:00 02/08/18 09:00 02/08/18 09:00 02/08/18 09:00 02/08/18 09:00 - Medications Medications: Current Medications Acetaminophen (Tylenol 325mg Tab) 650 mg PO Q6 PRN PRN Reason: Pain, Mild (1-3) Last Admin: 02/05/18 00:41 Dose: 650 mg Acetylcysteine (Mucomyst 10% 4ml) 2 ml IH RBID [facility] Last Admin: 02/08/18 08:40 Dose: 2 ml Albuterol/Ipratropium (Duoneb 3 Mg/0.5 Mg (3 Ml) Ud) 3 ml INH RQ4 [facility] Last Admin: 02/08/18 07:57 Dose: 3 ml Amlodipine Besylate (Norvasc) 10 mg PO DAILY [facility] Last Admin: 02/08/18 08:25 Dose: 10 mg Bisoprolol Fumarate (Zebeta) 10 mg PO DAILY [facility] Last Admin: 02/08/18 08:24 Dose: 10 mg Cholecalciferol (Vitamin D) 1,000 intlu PO DAILY [facility] Last Admin: 02/08/18 08:24 Dose: 1,000 intlu Clotrimazole (Lotrimin 1%) 1 applic TOP BID [facility] Last Admin: 02/08/18 08:24 Dose: 1 applic Dextrose (Dextrose 50% Inj) 0 ml IV STAT PRN; Protocol PRN Reason: Hypoglycemia Protocol Dextrose (Glutose 15) 0 gm PO ONCE PRN; Protocol PRN Reason: Hypoglycemia Protocol Famotidine (Pepcid) 40 mg PO HS [facility] Last Admin: 02/07/18 21:13 Dose: 40 mg Ferrous Gluconate (Fergon) 324 mg PO DAILY [facility] Last Admin: 02/08/18 08:25 Dose: 324 mg Furosemide (Lasix) 40 mg PO DAILY [facility] Last Admin: 02/08/18 08:25 Dose: 40 mg Glipizide (Glucotrol) 10 mg PO DAILY [facility] Last Admin: 02/08/18 08:26 Dose: 10 mg Glucagon (Glucagen Diagnostic Kit) 0 mg IM STAT PRN; Protocol PRN Reason: Hypoglycemia Protocol Guaifenesin/Dextromethorphan (Mucinex-Dm 600-30 Mg) 1 tab PO BID [facility] Last Admin: 02/08/18 08:26 Dose: 1 tab Fluconazole (Diflucan Iv 100 Mg/50 Ml Ns) 50 mls @ 50 mls/hr IVPB DAILY [facility]; Protocol Last Admin: 02/08/18 08:36 Dose: 50 mls/hr Meropenem 500 mg/ Sodium (Chloride) 100 mls @ 100 mls/hr IVPB Q24H [facility]; Protocol Last Admin: 02/08/18 08:28 Dose: 100 mls/hr Insulin Human Lispro (Humalog) 0 units SC ACHS [facility]; Protocol Last Admin: 02/08/18 06:31 Dose: Not Given Isosorbide Mononitrate (Imdur Er) 30 mg PO DAILY [facility] Last Admin: 02/08/18 08:29 Dose: 30 mg Lidocaine (Lidoderm) 1 ea TD DAILY [facility] Last Admin: 02/08/18 08:24 Dose: 1 ea Mupirocin (Bactroban Ointment) 1 applic TOP BID [facility] Last Admin: 02/08/18 08:24 Dose: 1 applic Pravastatin Sodium (Pravachol) 40 mg PO HS [facility] Last Admin: 02/07/18 21:13 Dose: 40 mg Prednisone (Prednisone Tab) 20 mg PO DAILY [facility] Last Admin: 02/08/18 08:30 Dose: 20 mg Sitagliptin Phosphate (Januvia) 100 mg PO DAILY [facility] Last Admin: 02/08/18 08:28 Dose: 100 mg Sucralfate (Carafate Tab) 1 gm PO BIDAC [facility] Last Admin: 02/08/18 08:29 Dose: 1 gm - Labs Labs: 02/07/18 05:10 02/07/18 05:10 PT 10.9 Seconds (9.8-13.1) 02/02/18 12:32 INR 1.0 02/02/18 12:32 APTT 24.7 Seconds (25.6-37.1) L 02/02/18 12:32 - Constitutional Appears: Well, Non-toxic, No Acute Distress - Head Exam Head Exam: ATRAUMATIC, NORMAL INSPECTION, NORMOCEPHALIC - Eye Exam Eye Exam: EOMI, Normal appearance, PERRL Pupil Exam: NORMAL ACCOMODATION - ENT Exam ENT Exam: Mucous Membranes Moist - Neck Exam Neck Exam: Full ROM - Respiratory Exam Respiratory Exam: Decreased Breath Sounds, Rales, NORMAL BREATHING PATTERN - Cardiovascular Exam Cardiovascular Exam: REGULAR RHYTHM, +S1, +S2 - GI/Abdominal Exam GI & Abdominal Exam: Soft, Normal Bowel Sounds - Rectal Exam Rectal Exam: Deferred - Neurological Exam Neurological Exam: Alert, Awake, CN II-XII Intact, Oriented x3 - Psychiatric Exam Psychiatric exam: Normal Mood - Skin Skin Exam: Normal Color, Warm Assessment and Plan - Assessment and Plan (Free Text) Assessment: 78 yo HF with pmh/o htn, dm hld, chf, copd, ? spinal stenosis, ckd with sob, being treated for mycoplasma pneumonia with b/l infiltrates, AMS this am, s/p [employer], pt is more alert, awake 1. CAMPBELL on ckd-3 2. HTN 3. Mycoplasma pneumonia 4. DM 5. s/p AMS, s/p [employer] 6. decreased left side BS sec to pleural effusion c/w IV ABx as per ID, renal function is stable. s/p removal of rt IJV kavitha cath physical therapy evaluation for possible thoracentesis by IR today
--- NOTE | 2018-02-08 14:19 | CP.PCM.PN ---
Subjective - Date & Time of Evaluation Date of Evaluation: 02/08/18 Time of Evaluation: 12:00 - Subjective Subjective: F/U PNA. Pt awake, smiling. no A/D, occasional dry cough, no chest congestion. Objective - Vital Signs/Intake and Output Vital Signs (last 24 hours): Temp Pulse Resp BP Pulse Ox 98 F 85 20 125/60 96 02/08/18 13:00 02/08/18 13:00 02/08/18 13:00 02/08/18 13:00 02/08/18 13:00 - Medications Medications: Current Medications Acetaminophen (Tylenol 325mg Tab) 650 mg PO Q6 PRN PRN Reason: Pain, Mild (1-3) Last Admin: 02/05/18 00:41 Dose: 650 mg Acetylcysteine (Mucomyst 10% 4ml) 2 ml IH RBID [facility] Last Admin: 02/08/18 08:40 Dose: 2 ml Albuterol/Ipratropium (Duoneb 3 Mg/0.5 Mg (3 Ml) Ud) 3 ml INH RQ4 [facility] Last Admin: 02/08/18 07:57 Dose: 3 ml Amlodipine Besylate (Norvasc) 10 mg PO DAILY [facility] Last Admin: 02/08/18 08:25 Dose: 10 mg Bisoprolol Fumarate (Zebeta) 10 mg PO DAILY [facility] Last Admin: 02/08/18 08:24 Dose: 10 mg Cholecalciferol (Vitamin D) 1,000 intlu PO DAILY [facility] Last Admin: 02/08/18 08:24 Dose: 1,000 intlu Clotrimazole (Lotrimin 1%) 1 applic TOP BID [facility] Last Admin: 02/08/18 08:24 Dose: 1 applic Dextrose (Dextrose 50% Inj) 0 ml IV STAT PRN; Protocol PRN Reason: Hypoglycemia Protocol Dextrose (Glutose 15) 0 gm PO ONCE PRN; Protocol PRN Reason: Hypoglycemia Protocol Famotidine (Pepcid) 40 mg PO HS [facility] Last Admin: 02/07/18 21:13 Dose: 40 mg Ferrous Gluconate (Fergon) 324 mg PO DAILY [facility] Last Admin: 02/08/18 08:25 Dose: 324 mg Furosemide (Lasix) 40 mg PO DAILY [facility] Last Admin: 02/08/18 08:25 Dose: 40 mg Glipizide (Glucotrol) 10 mg PO DAILY [facility] Last Admin: 02/08/18 08:26 Dose: 10 mg Glucagon (Glucagen Diagnostic Kit) 0 mg IM STAT PRN; Protocol PRN Reason: Hypoglycemia Protocol Guaifenesin/Dextromethorphan (Mucinex-Dm 600-30 Mg) 1 tab PO BID [facility] Last Admin: 02/08/18 08:26 Dose: 1 tab Fluconazole (Diflucan Iv 100 Mg/50 Ml Ns) 50 mls @ 50 mls/hr IVPB DAILY [facility]; Protocol Last Admin: 02/08/18 08:36 Dose: 50 mls/hr Insulin Human Lispro (Humalog) 0 units SC ACHS [facility]; Protocol Last Admin: 02/08/18 12:57 Dose: 2 units Isosorbide Mononitrate (Imdur Er) 30 mg PO DAILY [facility] Last Admin: 02/08/18 08:29 Dose: 30 mg Lidocaine (Lidoderm) 1 ea TD DAILY [facility] Last Admin: 02/08/18 08:24 Dose: 1 ea Mupirocin (Bactroban Ointment) 1 applic TOP BID [facility] Last Admin: 02/08/18 08:24 Dose: 1 applic Pravastatin Sodium (Pravachol) 40 mg PO HS [facility] Last Admin: 02/07/18 21:13 Dose: 40 mg Prednisone (Prednisone Tab) 20 mg PO DAILY [facility] Last Admin: 02/08/18 08:30 Dose: 20 mg Sitagliptin Phosphate (Januvia) 100 mg PO DAILY [facility] Last Admin: 02/08/18 08:28 Dose: 100 mg Sucralfate (Carafate Tab) 1 gm PO BIDAC [facility] Last Admin: 02/08/18 08:29 Dose: 1 gm - Labs Labs: 02/07/18 05:10 02/07/18 05:10 PT 10.9 Seconds (9.8-13.1) 02/02/18 12:32 INR 1.0 02/02/18 12:32 APTT 24.7 Seconds (25.6-37.1) L 02/02/18 12:32 - Constitutional Appears: No Acute Distress - Head Exam Head Exam: NORMAL INSPECTION - Eye Exam Eye Exam: PERRL - Respiratory Exam Respiratory Exam: Decreased Breath Sounds (Left lung) - Cardiovascular Exam Cardiovascular Exam: REGULAR RHYTHM - GI/Abdominal Exam GI & Abdominal Exam: Soft, Normal Bowel Sounds - Extremities Exam Additional comments: RUE PICC line - Neurological Exam Neurological Exam: Alert, CN II-XII Intact Additional comments: No focal motor/sensory deficit, generalized weakness. - Psychiatric Exam Psychiatric exam: Normal Mood - Skin Skin Exam: Warm Assessment and Plan (1) Pneumonia Status: Acute (2) Pleural effusion on left Status: Acute (3) COPD exacerbation Status: Acute (4) Respiratory failure with hypercapnia Status: Acute (5) Change in mental status Status: Resolved - Assessment and Plan (Free Text) Plan: CT showed Large L pleural effusion, f/u IR for L Thoracentesis today.
--- NOTE | 2018-02-08 14:45 | CP.PCM.PCO ---
Assessment & Plan - Assessment and Plan (Free Text) Assessment: Patient seen and examined this morning. Vss, on 2 L NC in no acute distress. Awake alert oriented. Denies chest pain, shortness of breath, nausea or vomiting. Labs and ct results reviewed with Dr Farah over the phone showing Left large pleural effusion MD will review ct scan results himself and decide on treatment when he rounds. Will cont to monitor patient. Cont iv abx. - Date & Time Date: 02/08/18 Time: 11:00
[2018-02-08] MEDS ORDERED: Lidocaine 1% Inj (20ml) ONE (15:50)
--- NOTE | 2018-02-08 16:00 | PCM.SURG1 ---
Surgeon's Initial Post Op Note - Surgeon's Notes Surgeon: Laura Full Stack Software Engineer: None Type of Anesthesia: Local Pre-Operative Diagnosis: Left pleural effusion Operative Findings: Left pleural effusion Post-Operative Diagnosis: Left pleural effusion Operation Performed: Left thoracentesis Specimen/Specimens Removed: approx 350cc of clear pale yellow colored fluid aspirated. Estimated Blood Loss: EBL {In ML}: 1 Date of Surgery/Procedure: 02/08/18 Time of Surgery/Procedure: 15:50
[2018-02-08] MEDS: Pravastatin Sodium 40 MG TAB PO SCH (20:59)
[2018-02-09] MEDS: Albuterol-Ipratrop 3 mg / 0.5 (3 ml) UD INH SCH ×6 (03:42→23:08)
[2018-02-09] MEDS: Acetylcysteine 10% 4 ML IH SCH ×2 (07:39→19:25)
[2018-02-09] MEDS: Insulin Lispro (humaLOG) 100 Units/ml Inj SC SCH ×4 (09:10→21:58)
[2018-02-09] MEDS: Lidocaine 5% Patch TD SCH (09:11)
[2018-02-09] MEDS: Fluconazole IV 100mg/50 ml NS 50 ML IVPB SCH (09:12)
[2018-02-09] MEDS: guaiFENesin-DM 600-30 mg ER Tab PO SCH ×2 (09:15→18:19)
[2018-02-09] MEDS: Cholecalciferol 1,000 INTLU TAB PO SCH (09:15)
--- NOTE | 2018-02-09 13:13 | PN ---
DATE: 02/09/2018 SUBJECTIVE: The patient seen and examined. Interim events noted. The patient remains in progressive care unit, on telemetry monitoring in isolation room. Awake and responsive. Feels much better. No chest pain. No shortness of breath. PHYSICAL EXAMINATION: GENERAL: The patient is in no acute distress. VITAL SIGNS: Stable. HEART: S1 and S2, normal and regular. LUNGS: Good bilateral air exchange. ABDOMEN: Soft and nontender. EXTREMITIES: No edema. No calf swelling. No tenderness. No acute ischemia. CENTRAL NERVOUS SYSTEM: Essentially unchanged. DIAGNOSTIC DATA: Available diagnostic data reviewed. Telemetry monitoring does not reveal significant arrhythmias. ASSESSMENT AND PLAN: Overall, the patient is slowly improving and hemodynamically stable. Plan as ordered. Manpreet Austin MD
--- NOTE | 2018-02-09 14:05 | CP.PCM.PN ---
Subjective - Date & Time of Evaluation Date of Evaluation: 02/09/18 Time of Evaluation: 14:05 - Subjective Subjective: pt is oob to chair, c/o lower back apin, not in acute distress Objective - Vital Signs/Intake and Output Vital Signs (last 24 hours): Temp Pulse Resp BP Pulse Ox 98.2 F 88 18 143/70 95 02/09/18 08:18 02/09/18 09:16 02/09/18 08:18 02/09/18 09:16 02/09/18 08:18 - Medications Medications: Current Medications Acetaminophen (Tylenol 325mg Tab) 650 mg PO Q6 PRN PRN Reason: Pain, Mild (1-3) Last Admin: 02/08/18 20:55 Dose: 650 mg Acetylcysteine (Mucomyst 10% 4ml) 2 ml IH RBID [facility] Last Admin: 02/09/18 07:39 Dose: 2 ml Albuterol/Ipratropium (Duoneb 3 Mg/0.5 Mg (3 Ml) Ud) 3 ml INH RQ4 [facility] Last Admin: 02/09/18 12:05 Dose: 3 ml Amlodipine Besylate (Norvasc) 10 mg PO DAILY [facility] Last Admin: 02/09/18 09:16 Dose: 10 mg Bisoprolol Fumarate (Zebeta) 10 mg PO DAILY [facility] Last Admin: 02/09/18 09:14 Dose: 10 mg Cholecalciferol (Vitamin D) 1,000 intlu PO DAILY [facility] Last Admin: 02/09/18 09:15 Dose: 1,000 intlu Clotrimazole (Lotrimin 1%) 1 applic TOP BID [facility] Last Admin: 02/09/18 09:12 Dose: 1 applic Dextrose (Dextrose 50% Inj) 0 ml IV STAT PRN; Protocol PRN Reason: Hypoglycemia Protocol Dextrose (Glutose 15) 0 gm PO ONCE PRN; Protocol PRN Reason: Hypoglycemia Protocol Famotidine (Pepcid) 40 mg PO HS [facility] Last Admin: 02/08/18 20:59 Dose: 40 mg Ferrous Gluconate (Fergon) 324 mg PO DAILY [facility] Last Admin: 02/09/18 09:15 Dose: 324 mg Furosemide (Lasix) 40 mg PO DAILY [facility] Last Admin: 02/09/18 09:14 Dose: 40 mg Glipizide (Glucotrol) 10 mg PO DAILY [facility] Last Admin: 02/09/18 09:13 Dose: 10 mg Glucagon (Glucagen Diagnostic Kit) 0 mg IM STAT PRN; Protocol PRN Reason: Hypoglycemia Protocol Guaifenesin/Dextromethorphan (Mucinex-Dm 600-30 Mg) 1 tab PO BID [facility] Last Admin: 02/09/18 09:15 Dose: 1 tab Fluconazole (Diflucan Iv 100 Mg/50 Ml Ns) 50 mls @ 50 mls/hr IVPB DAILY [facility]; Protocol Last Admin: 02/09/18 09:12 Dose: 50 mls/hr Insulin Human Lispro (Humalog) 0 units SC ACHS [facility]; Protocol Last Admin: 02/09/18 09:10 Dose: 4 units Isosorbide Mononitrate (Imdur Er) 30 mg PO DAILY [facility] Last Admin: 02/09/18 09:15 Dose: 30 mg Lidocaine (Lidoderm) 1 ea TD DAILY [facility] Last Admin: 02/09/18 09:11 Dose: 1 ea Mupirocin (Bactroban Ointment) 1 applic TOP BID [facility] Last Admin: 02/09/18 09:12 Dose: 1 applic Pravastatin Sodium (Pravachol) 40 mg PO HS [facility] Last Admin: 02/08/18 20:59 Dose: 40 mg Prednisone (Prednisone Tab) 20 mg PO DAILY [facility] Last Admin: 02/09/18 09:14 Dose: 20 mg Sitagliptin Phosphate (Januvia) 100 mg PO DAILY [facility] Last Admin: 02/08/18 08:28 Dose: 100 mg Sucralfate (Carafate Tab) 1 gm PO BIDAC [facility] Last Admin: 02/09/18 08:00 Dose: 1 gm - Labs Labs: 02/07/18 05:10 02/07/18 05:10 PT 10.9 Seconds (9.8-13.1) 02/02/18 12:32 INR 1.0 02/02/18 12:32 APTT 24.7 Seconds (25.6-37.1) L 02/02/18 12:32 - Constitutional Appears: Well, Non-toxic, No Acute Distress - Head Exam Head Exam: ATRAUMATIC, NORMAL INSPECTION - Eye Exam Eye Exam: EOMI, Normal appearance, PERRL Pupil Exam: NORMAL ACCOMODATION - ENT Exam ENT Exam: Mucous Membranes Moist - Respiratory Exam Respiratory Exam: Decreased Breath Sounds Additional comments: on left side - Cardiovascular Exam Cardiovascular Exam: REGULAR RHYTHM, +S1, +S2 - GI/Abdominal Exam GI & Abdominal Exam: Soft, Normal Bowel Sounds - Rectal Exam Rectal Exam: Deferred - Neurological Exam Neurological Exam: Alert, Awake, CN II-XII Intact, Oriented x3 - Skin Skin Exam: Normal Color, Warm Assessment and Plan - Assessment and Plan (Free Text) Assessment: 78 yo HF with pmh/o htn, dm hld, chf, copd, ? 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 CAMPBELL on ckd-3 2. HTN 3. Mycoplasma pneumonia 4. DM 5. 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 decreased left side BS sec to pleural effusion c/w IV ABx as per ID, renal function is stable. s/p removal of rt IJV kavitha cath physical therapy evaluation s/p thoracentsis yesterday, drained about 350 ml follow up with pulmonary
--- NOTE | 2018-02-09 15:45 | CP.PCM.PN ---
Subjective - Date & Time of Evaluation Date of Evaluation: 02/09/18 Time of Evaluation: 13:40 - Subjective Subjective: F/U PNA Pt awake, no A/D, no SOB on O2 NC, occasional dry cough. Objective - Vital Signs/Intake and Output Vital Signs (last 24 hours): Temp Pulse Resp BP Pulse Ox 98.2 F 88 18 143/70 95 02/09/18 08:18 02/09/18 09:16 02/09/18 08:18 02/09/18 09:16 02/09/18 08:18 - Medications Medications: Current Medications Acetaminophen (Tylenol 325mg Tab) 650 mg PO Q6 PRN PRN Reason: Pain, Mild (1-3) Last Admin: 02/08/18 20:55 Dose: 650 mg Acetylcysteine (Mucomyst 10% 4ml) 2 ml IH RBID [facility] Last Admin: 02/09/18 07:39 Dose: 2 ml Albuterol/Ipratropium (Duoneb 3 Mg/0.5 Mg (3 Ml) Ud) 3 ml INH RQ4 [facility] Last Admin: 02/09/18 12:05 Dose: 3 ml Amlodipine Besylate (Norvasc) 10 mg PO DAILY [facility] Last Admin: 02/09/18 09:16 Dose: 10 mg Bisoprolol Fumarate (Zebeta) 10 mg PO DAILY [facility] Last Admin: 02/09/18 09:14 Dose: 10 mg Cholecalciferol (Vitamin D) 1,000 intlu PO DAILY [facility] Last Admin: 02/09/18 09:15 Dose: 1,000 intlu Clotrimazole (Lotrimin 1%) 1 applic TOP BID [facility] Last Admin: 02/09/18 09:12 Dose: 1 applic Dextrose (Dextrose 50% Inj) 0 ml IV STAT PRN; Protocol PRN Reason: Hypoglycemia Protocol Dextrose (Glutose 15) 0 gm PO ONCE PRN; Protocol PRN Reason: Hypoglycemia Protocol Famotidine (Pepcid) 40 mg PO HS [facility] Last Admin: 02/08/18 20:59 Dose: 40 mg Ferrous Gluconate (Fergon) 324 mg PO DAILY [facility] Last Admin: 02/09/18 09:15 Dose: 324 mg Furosemide (Lasix) 40 mg PO DAILY [facility] Last Admin: 02/09/18 09:14 Dose: 40 mg Glipizide (Glucotrol) 10 mg PO DAILY [facility] Last Admin: 02/09/18 09:13 Dose: 10 mg Glucagon (Glucagen Diagnostic Kit) 0 mg IM STAT PRN; Protocol PRN Reason: Hypoglycemia Protocol Guaifenesin/Dextromethorphan (Mucinex-Dm 600-30 Mg) 1 tab PO BID [facility] Last Admin: 02/09/18 09:15 Dose: 1 tab Fluconazole (Diflucan Iv 100 Mg/50 Ml Ns) 50 mls @ 50 mls/hr IVPB DAILY [facility]; Protocol Last Admin: 02/09/18 09:12 Dose: 50 mls/hr Insulin Human Lispro (Humalog) 0 units SC ACHS [facility]; Protocol Last Admin: 02/09/18 09:10 Dose: 4 units Isosorbide Mononitrate (Imdur Er) 30 mg PO DAILY [facility] Last Admin: 02/09/18 09:15 Dose: 30 mg Lidocaine (Lidoderm) 1 ea TD DAILY [facility] Last Admin: 02/09/18 09:11 Dose: 1 ea Mupirocin (Bactroban Ointment) 1 applic TOP BID [facility] Last Admin: 02/09/18 09:12 Dose: 1 applic Pravastatin Sodium (Pravachol) 40 mg PO HS [facility] Last Admin: 02/08/18 20:59 Dose: 40 mg Prednisone (Prednisone Tab) 20 mg PO DAILY [facility] Last Admin: 02/09/18 09:14 Dose: 20 mg Sitagliptin Phosphate (Januvia) 100 mg PO DAILY [facility] Last Admin: 02/08/18 08:28 Dose: 100 mg Sucralfate (Carafate Tab) 1 gm PO BIDAC [facility] Last Admin: 02/09/18 08:00 Dose: 1 gm - Labs Labs: 02/07/18 05:10 02/07/18 05:10 PT 10.9 Seconds (9.8-13.1) 02/02/18 12:32 INR 1.0 02/02/18 12:32 APTT 24.7 Seconds (25.6-37.1) L 02/02/18 12:32 - Constitutional Appears: Chronically Ill - Head Exam Head Exam: NORMAL INSPECTION - Eye Exam Eye Exam: PERRL - ENT Exam ENT Exam: Normal Exam - Neck Exam Neck Exam: Normal Inspection - Respiratory Exam Respiratory Exam: Decreased Breath Sounds (L lung) - Cardiovascular Exam Cardiovascular Exam: REGULAR RHYTHM - GI/Abdominal Exam GI & Abdominal Exam: Soft, Normal Bowel Sounds - Extremities Exam Additional comments: RUE PICC line - Neurological Exam Neurological Exam: Alert, CN II-XII Intact Additional comments: No focal motor/sensory deficit. - Psychiatric Exam Psychiatric exam: Normal Affect - Skin Skin Exam: Warm Assessment and Plan (1) Pneumonia Status: Acute (2) Pleural effusion on left Status: Acute (3) COPD exacerbation Status: Acute (4) Respiratory failure with hypercapnia Status: Acute (5) Change in mental status Status: Resolved - Assessment and Plan (Free Text) Plan: Continue Duoneb, Prednisone and rest of Tx.
[2018-02-09 19:57] LABS: HEMOGLOBIN 8.1 g/dL (12.0-16.0); MEAN CELL VOLUME 89.3 fl (81.0-99.0); MEAN CORPUSCULAR HEMOGLOBIN 29.1 pg (27.0-31.0); MEAN CORPUSCULAR HGB CONC 32.5 g/dL (33.0-37.0); RBC 2.8 Mil/uL (3.80-5.20); RED CELL DISTRIBUTION WIDTH 15.4 % (11.5-14.5); WHITE BLOOD COUNT 10.3 K/uL (4.8-10.8)
[2018-02-09 20:08] LABS: CALCIUM 7.8 mg/dL (8.4-10.2)
[2018-02-09] MEDS: Pravastatin Sodium 40 MG TAB PO SCH (21:51)
[2018-02-10] MEDS: Albuterol-Ipratrop 3 mg / 0.5 (3 ml) UD INH SCH ×6 (03:18→23:29)
[2018-02-10] MEDS: Insulin Lispro (humaLOG) 100 Units/ml Inj SC SCH ×4 (06:47→21:43)
[2018-02-10 07:05] LABS: MEAN CELL VOLUME 89.6 fl (81.0-99.0); MEAN CORPUSCULAR HEMOGLOBIN 28.6 pg (27.0-31.0); RBC 2.79 Mil/uL (3.80-5.20); WHITE BLOOD COUNT 8.4 K/uL (4.8-10.8)
[2018-02-10 07:13] LABS: ALBUMIN 2.8 g/dL (3.5-5.0); CALCIUM 8.1 mg/dL (8.4-10.2)
--- NOTE | 2018-02-10 07:53 | PN ---
DATE: 02/10/2018 SUBJECTIVE: The patient is seen and examined. Interim events noted. Consults noted and appreciated. The patient remains in progressive care unit on telemetry monitoring. The patient is looking arousable. Feels better. Denies any chest pain or shortness of breath. Complains of generalized weakness. PHYSICAL EXAMINATION: GENERAL: The patient is in no acute distress. VITAL SIGNS: Stable. HEART: S1 and S2, normal and regular. LUNGS: Good bilateral air exchange. ABDOMEN: Soft and nontender. EXTREMITIES: No edema. No calf swelling. No tenderness. No acute ischemia. CENTRAL NERVOUS SYSTEM: Essentially unchanged. DIAGNOSTIC DATA: Available diagnostic data reviewed. Telemetry monitoring does not reveal significant arrhythmia. ASSESSMENT AND PLAN: Overall, the patient is slowing improving. . BUN is 45 and creatinine 1.5 and is stable . The patient is medially stable. Plan as ordered. Manpreet Austin MD
[2018-02-10] MEDS: Acetylcysteine 10% 4 ML IH SCH ×2 (07:57→19:40)
[2018-02-10] MEDS: Fluconazole IV 100mg/50 ml NS 50 ML IVPB SCH (08:45)
[2018-02-10] MEDS: Lidocaine 5% Patch TD SCH (08:45)
[2018-02-10] MEDS: Cholecalciferol 1,000 INTLU TAB PO SCH (08:47)
[2018-02-10] MEDS: guaiFENesin-DM 600-30 mg ER Tab PO SCH ×2 (08:49→18:57)
--- NOTE | 2018-02-10 13:35 | CP.PCM.PN ---
Subjective - Date & Time of Evaluation Date of Evaluation: 02/10/18 Time of Evaluation: 08:00 - Subjective Subjective: LETHARGIC NAD Objective - Vital Signs/Intake and Output Vital Signs (last 24 hours): Temp Pulse Resp BP Pulse Ox 98.3 F 79 18 138/66 97 02/10/18 08:00 02/10/18 08:46 02/10/18 08:00 02/10/18 08:49 02/10/18 08:00 - Medications Medications: Current Medications Acetaminophen (Tylenol 325mg Tab) 650 mg PO Q6 PRN PRN Reason: Pain, Mild (1-3) Last Admin: 02/08/18 20:55 Dose: 650 mg Acetylcysteine (Mucomyst 10% 4ml) 2 ml IH RBID [facility] Last Admin: 02/10/18 07:57 Dose: 2 ml Albuterol/Ipratropium (Duoneb 3 Mg/0.5 Mg (3 Ml) Ud) 3 ml INH RQ4 [facility] Last Admin: 02/10/18 11:58 Dose: 3 ml Amlodipine Besylate (Norvasc) 10 mg PO DAILY [facility] Last Admin: 02/10/18 08:46 Dose: 10 mg Bisoprolol Fumarate (Zebeta) 10 mg PO DAILY [facility] Last Admin: 02/10/18 08:47 Dose: 10 mg Cholecalciferol (Vitamin D) 1,000 intlu PO DAILY [facility] Last Admin: 02/10/18 08:47 Dose: 1,000 intlu Clotrimazole (Lotrimin 1%) 1 applic TOP BID [facility] Last Admin: 02/10/18 08:48 Dose: 1 applic Dextrose (Dextrose 50% Inj) 0 ml IV STAT PRN; Protocol PRN Reason: Hypoglycemia Protocol Dextrose (Glutose 15) 0 gm PO ONCE PRN; Protocol PRN Reason: Hypoglycemia Protocol Famotidine (Pepcid) 40 mg PO HS [facility] Last Admin: 02/09/18 21:51 Dose: 40 mg Ferrous Gluconate (Fergon) 324 mg PO DAILY [facility] Last Admin: 02/10/18 08:46 Dose: 324 mg Furosemide (Lasix) 40 mg PO DAILY [facility] Last Admin: 02/10/18 08:49 Dose: 40 mg Glipizide (Glucotrol) 10 mg PO DAILY [facility] Last Admin: 02/10/18 08:48 Dose: 10 mg Glucagon (Glucagen Diagnostic Kit) 0 mg IM STAT PRN; Protocol PRN Reason: Hypoglycemia Protocol Guaifenesin/Dextromethorphan (Mucinex-Dm 600-30 Mg) 1 tab PO BID [facility] Last Admin: 02/10/18 08:49 Dose: 1 tab Insulin Human Lispro (Humalog) 0 units SC ACHS [facility]; Protocol Last Admin: 02/10/18 06:47 Dose: 2 units Isosorbide Mononitrate (Imdur Er) 30 mg PO DAILY [facility] Last Admin: 02/10/18 08:48 Dose: 30 mg Lidocaine (Lidoderm) 1 ea TD DAILY [facility] Last Admin: 02/10/18 08:45 Dose: 1 ea Mupirocin (Bactroban Ointment) 1 applic TOP BID [facility] Last Admin: 02/10/18 08:48 Dose: 1 applic Pravastatin Sodium (Pravachol) 40 mg PO HS [facility] Last Admin: 02/09/18 21:51 Dose: 40 mg Prednisone (Prednisone Tab) 20 mg PO DAILY [facility] Last Admin: 02/10/18 08:47 Dose: 20 mg Sitagliptin Phosphate (Januvia) 100 mg PO DAILY [facility] Last Admin: 02/10/18 08:42 Dose: 100 mg Sucralfate (Carafate Tab) 1 gm PO BIDAC [facility] Last Admin: 02/10/18 07:42 Dose: 1 gm - Labs Labs: 02/10/18 05:30 02/10/18 05:30 PT 10.9 Seconds (9.8-13.1) 02/02/18 12:32 INR 1.0 02/02/18 12:32 APTT 24.7 Seconds (25.6-37.1) L 02/02/18 12:32 - Constitutional Appears: Non-toxic - Eye Exam Eye Exam: absent: Scleral icterus - ENT Exam ENT Exam: Mucous Membranes Dry - Neck Exam Neck Exam: absent: Lymphadenopathy - Respiratory Exam Respiratory Exam: Decreased Breath Sounds, Rhonchi - Cardiovascular Exam Cardiovascular Exam: REGULAR RHYTHM - GI/Abdominal Exam GI & Abdominal Exam: Distended, Soft - Rectal Exam Rectal Exam: Deferred - Exam Exam: NORMAL INSPECTION - Extremities Exam Extremities Exam: absent: Pedal Edema Assessment and Plan (1) Pneumonia Status: Acute (2) COPD (chronic obstructive pulmonary disease) Status: Chronic - Assessment and Plan (Free Text) Assessment: CONT IV RX
--- NOTE | 2018-02-10 14:29 | CP.PCM.PN ---
Subjective - Date & Time of Evaluation Date of Evaluation: 02/10/18 Time of Evaluation: 11:20 - Subjective Subjective: F/U PNA Pt smiling, eating well on NC. Objective - Vital Signs/Intake and Output Vital Signs (last 24 hours): Temp Pulse Resp BP Pulse Ox 98.3 F 79 18 138/66 97 02/10/18 08:00 02/10/18 08:46 02/10/18 08:00 02/10/18 08:49 02/10/18 08:00 - Medications Medications: Current Medications Acetaminophen (Tylenol 325mg Tab) 650 mg PO Q6 PRN PRN Reason: Pain, Mild (1-3) Last Admin: 02/08/18 20:55 Dose: 650 mg Acetylcysteine (Mucomyst 10% 4ml) 2 ml IH RBID [facility] Last Admin: 02/10/18 07:57 Dose: 2 ml Albuterol/Ipratropium (Duoneb 3 Mg/0.5 Mg (3 Ml) Ud) 3 ml INH RQ4 [facility] Last Admin: 02/10/18 11:58 Dose: 3 ml Amlodipine Besylate (Norvasc) 10 mg PO DAILY [facility] Last Admin: 02/10/18 08:46 Dose: 10 mg Bisoprolol Fumarate (Zebeta) 10 mg PO DAILY [facility] Last Admin: 02/10/18 08:47 Dose: 10 mg Cholecalciferol (Vitamin D) 1,000 intlu PO DAILY [facility] Last Admin: 02/10/18 08:47 Dose: 1,000 intlu Clotrimazole (Lotrimin 1%) 1 applic TOP BID [facility] Last Admin: 02/10/18 08:48 Dose: 1 applic Dextrose (Dextrose 50% Inj) 0 ml IV STAT PRN; Protocol PRN Reason: Hypoglycemia Protocol Dextrose (Glutose 15) 0 gm PO ONCE PRN; Protocol PRN Reason: Hypoglycemia Protocol Famotidine (Pepcid) 40 mg PO HS [facility] Last Admin: 02/09/18 21:51 Dose: 40 mg Ferrous Gluconate (Fergon) 324 mg PO DAILY [facility] Last Admin: 02/10/18 08:46 Dose: 324 mg Furosemide (Lasix) 40 mg PO DAILY [facility] Last Admin: 02/10/18 08:49 Dose: 40 mg Glipizide (Glucotrol) 10 mg PO DAILY [facility] Last Admin: 02/10/18 08:48 Dose: 10 mg Glucagon (Glucagen Diagnostic Kit) 0 mg IM STAT PRN; Protocol PRN Reason: Hypoglycemia Protocol Guaifenesin/Dextromethorphan (Mucinex-Dm 600-30 Mg) 1 tab PO BID [facility] Last Admin: 02/10/18 08:49 Dose: 1 tab Insulin Human Lispro (Humalog) 0 units SC ACHS [facility]; Protocol Last Admin: 02/10/18 06:47 Dose: 2 units Isosorbide Mononitrate (Imdur Er) 30 mg PO DAILY [facility] Last Admin: 02/10/18 08:48 Dose: 30 mg Lidocaine (Lidoderm) 1 ea TD DAILY [facility] Last Admin: 02/10/18 08:45 Dose: 1 ea Mupirocin (Bactroban Ointment) 1 applic TOP BID [facility] Last Admin: 02/10/18 08:48 Dose: 1 applic Pravastatin Sodium (Pravachol) 40 mg PO HS [facility] Last Admin: 02/09/18 21:51 Dose: 40 mg Prednisone (Prednisone Tab) 20 mg PO DAILY [facility] Last Admin: 02/10/18 08:47 Dose: 20 mg Sitagliptin Phosphate (Januvia) 100 mg PO DAILY [facility] Last Admin: 02/10/18 08:42 Dose: 100 mg Sucralfate (Carafate Tab) 1 gm PO BIDAC [facility] Last Admin: 02/10/18 07:42 Dose: 1 gm - Labs Labs: 02/10/18 05:30 02/10/18 05:30 PT 10.9 Seconds (9.8-13.1) 02/02/18 12:32 INR 1.0 02/02/18 12:32 APTT 24.7 Seconds (25.6-37.1) L 02/02/18 12:32 - Constitutional Appears: No Acute Distress, Chronically Ill - Head Exam Head Exam: NORMAL INSPECTION - Eye Exam Eye Exam: PERRL - ENT Exam ENT Exam: Normal Exam - Neck Exam Neck Exam: Normal Inspection - Respiratory Exam Respiratory Exam: Decreased Breath Sounds (L lung), Rhonchi - Cardiovascular Exam Cardiovascular Exam: REGULAR RHYTHM - GI/Abdominal Exam GI & Abdominal Exam: Soft, Normal Bowel Sounds - Extremities Exam Additional comments: PICC line in place - Neurological Exam Neurological Exam: Alert, CN II-XII Intact Additional comments: No focal motor/sensory deficit, generalized weakness. - Psychiatric Exam Psychiatric exam: Normal Affect - Skin Skin Exam: Warm Assessment and Plan (1) Pneumonia Status: Acute (2) Pleural effusion on left Status: Acute (3) COPD exacerbation Status: Acute (4) Respiratory failure with hypercapnia Status: Acute (5) Change in mental status Status: Resolved - Assessment and Plan (Free Text) Plan: Repeat CT Chest in AM, continue Duoneb, Prednisone and rest of Tx.
--- NOTE | 2018-02-10 18:06 | US ---
Procedure: Ultrasound guided thoracentesis. Clinical History: Left -sided pleural effusion. Technique: The relative risks and indications for the procedure were explained to the patient and informed written consent obtained, using a motor vehicle parts interpreter. Sonography of the left chest was performed in a an upright position. This revealed a small to moderate amount of pleural fluid. A puncture site was selected in the posterior aspect of the left chest and the area was prepped and draped in the usual sterile fashion. 1% lidocaine was used to anesthetize the skin and soft tissues. A 5 Faroese centesis catheter was trochared into the left pleural cavity approximately 350-400 cc of ab fluid aspirated. The patient tolerated the procedure well. Impression: Ultrasound-guided thoracentesis of the left pleural cavity.
[2018-02-10] MEDS: Pravastatin Sodium 40 MG TAB PO SCH (21:20)
[2018-02-11] MEDS: Albuterol-Ipratrop 3 mg / 0.5 (3 ml) UD INH SCH ×5 (04:45→19:15)
[2018-02-11 06:14] LABS: HEMOGLOBIN 7.7 g/dL (12.0-16.0); MEAN CELL VOLUME 89.1 fl (81.0-99.0); MEAN CORPUSCULAR HEMOGLOBIN 28.9 pg (27.0-31.0); MEAN CORPUSCULAR HGB CONC 32.4 g/dL (33.0-37.0); RBC 2.67 Mil/uL (3.80-5.20); RED CELL DISTRIBUTION WIDTH 14.9 % (11.5-14.5); WHITE BLOOD COUNT 7.6 K/uL (4.8-10.8)
[2018-02-11 06:21] LABS: ALB/GLOB RATIO 1.1 (1.0-2.1); CALCIUM 8.2 mg/dL (8.4-10.2)
[2018-02-11] MEDS: Insulin Lispro (humaLOG) 100 Units/ml Inj SC SCH ×4 (06:50→21:59)
[2018-02-11] MEDS: Acetylcysteine 10% 4 ML IH SCH ×2 (07:56→19:15)
--- NOTE | 2018-02-11 10:16 | RAD ---
Date of service: 02/08/2018 HISTORY: Left thoracentesis COMPARISON: Portable chest 02/03/2018. FINDINGS: Prior right center venous dialysis catheters been removed with right PICC unchanged in position. LUNGS: Increasing airspace disease that is seen at the left hemithorax with only limited portion of the left apex remaining aerated. No definite right-sided airspace disease. PLEURA: Likely left pleural effusion stable if not increased. CARDIOVASCULAR: Calcific atherosclerotic changes are seen related to the thoracic aorta. Cardiac silhouette is obscured by left-sided pulmonary opacity. No pulmonary vascular congestion. OSSEOUS STRUCTURES: No significant abnormalities. VISUALIZED UPPER ABDOMEN: Normal. OTHER FINDINGS: None. IMPRESSION: Interval increased left-sided airspace disease and probable pleural effusion. Right center venous dialysis catheter removed with right PICC unchanged in position.
[2018-02-11] MEDS: guaiFENesin-DM 600-30 mg ER Tab PO SCH ×2 (10:20→18:40)
[2018-02-11] MEDS: Lidocaine 5% Patch TD SCH (10:29)
[2018-02-11] MEDS: Cholecalciferol 1,000 INTLU TAB PO SCH (10:30)
[2018-02-11] MEDS: Meropenem 500 MG in Sodium Chloride 0.9% 100 ML IVPB SCH (10:33)
--- NOTE | 2018-02-11 15:19 | CT ---
Date of service: 02/11/2018 PROCEDURE: CT Chest without contrast HISTORY: PNA, Pleural effusion COMPARISON: Chest CT without contrast 02/07/2018. TECHNIQUE: Contiguous axial images were obtained through the chest without intravenous contrast enhancement. Sagittal and coronal reconstructions were performed. Radiation dose: Total exam DLP = 535.91 mGy-cm. This CT exam was performed using one or more of the following dose reduction techniques: Automated exposure control, adjustment of the mA and/or kV according to patient size, and/or use of iterative reconstruction technique. FINDINGS: LUNGS: Limited bilateral lower lobe dependent and compressive atelectasis, increased in the right but diminished at the left. Underlying airspace disease not completely excluded, particularly at the left lower lobe. Interlobular septal thickening is appreciated bilaterally, more so the apices and at the bases. MEDIASTINUM: Dilated ascending thoracic aorta is reiterated measuring up to 4.3 cm with the main pulmonary artery dilated to 3.7 cm. Consider possible pulmonary artery hypertension. The thoracic ureter resumes normal caliber at the mid arch, under 3 cm. Cardiomegaly is stable with dense mitral annular calcifications extensive coronary artery calcifications reiterated. Peripheral pulmonary arteries appear dilated relative to the manager international airways suggesting an element of pulmonary vascular congestion. No significant lymphadenopathy. Calcific atherosclerotic changes are seen related to the thoracic aorta. PLEURA: Trace right pleural effusion slightly increased. Mild improvement in left pleural effusion with lingula compressive atelectasis improved. BONES: Chronic T12 anterior wedge compression fracture remains moderate to severe. UPPER ABDOMEN: Distended gallbladder with layering sludge/calculi. Small hiatal hernia identified. OTHER FINDINGS: None. IMPRESSION: Mild pulmonary vascular congestion pattern with diminished left pleural effusion and compression atelectasis both significant residual atelectasis remaining at the left base. Limited right pleural effusion slightly increased, with limited subsegmental atelectasis again evident at the right lung. Underlying bilateral lower lobe and lingular infiltrates not completely excluded. No central airway lesion. Consider potential pulmonary artery hypertension. Dilated ascending thoracic aorta reiterated.
--- NOTE | 2018-02-11 16:03 | CP.PCM.PN ---
Subjective - Date & Time of Evaluation Date of Evaluation: 02/11/18 Time of Evaluation: 14:20 - Subjective Subjective: F/U PNA No shortness of breath on O2 nasal cannula, occasional dry cough, mild chest congestion Objective - Vital Signs/Intake and Output Vital Signs (last 24 hours): Temp Pulse Resp BP Pulse Ox 98.9 F 84 18 126/67 98 02/11/18 12:00 02/11/18 12:00 02/11/18 12:00 02/11/18 12:00 02/11/18 12:00 - Medications Medications: Current Medications Acetaminophen (Tylenol 325mg Tab) 650 mg PO Q6 PRN PRN Reason: Pain, Mild (1-3) Last Admin: 02/08/18 20:55 Dose: 650 mg Acetylcysteine (Mucomyst 10% 4ml) 2 ml IH RBID [facility] Last Admin: 02/11/18 07:56 Dose: 2 ml Albuterol/Ipratropium (Duoneb 3 Mg/0.5 Mg (3 Ml) Ud) 3 ml INH RQ4 [facility] Last Admin: 02/11/18 15:57 Dose: 3 ml Amlodipine Besylate (Norvasc) 10 mg PO DAILY [facility] Last Admin: 02/11/18 10:20 Dose: 10 mg Bisoprolol Fumarate (Zebeta) 10 mg PO DAILY [facility] Last Admin: 02/11/18 10:31 Dose: 10 mg Cholecalciferol (Vitamin D) 1,000 intlu PO DAILY [facility] Last Admin: 02/11/18 10:30 Dose: 1,000 intlu Clotrimazole (Lotrimin 1%) 1 applic TOP BID [facility] Last Admin: 02/11/18 10:19 Dose: 1 applic Dextrose (Dextrose 50% Inj) 0 ml IV STAT PRN; Protocol PRN Reason: Hypoglycemia Protocol Dextrose (Glutose 15) 0 gm PO ONCE PRN; Protocol PRN Reason: Hypoglycemia Protocol Famotidine (Pepcid) 40 mg PO HS [facility] Last Admin: 02/10/18 21:20 Dose: 40 mg Ferrous Gluconate (Fergon) 324 mg PO DAILY [facility] Last Admin: 02/11/18 10:28 Dose: 324 mg Furosemide (Lasix) 40 mg PO DAILY [facility] Last Admin: 02/11/18 10:29 Dose: 40 mg Glipizide (Glucotrol) 10 mg PO DAILY [facility] Last Admin: 02/11/18 10:19 Dose: 10 mg Glucagon (Glucagen Diagnostic Kit) 0 mg IM STAT PRN; Protocol PRN Reason: Hypoglycemia Protocol Guaifenesin/Dextromethorphan (Mucinex-Dm 600-30 Mg) 1 tab PO BID [facility] Last Admin: 02/11/18 10:20 Dose: 1 tab Meropenem 500 mg/ Sodium (Chloride) 100 mls @ 100 mls/hr IVPB DAILY [facility]; Protocol Last Admin: 02/11/18 10:33 Dose: 100 mls/hr Insulin Human Lispro (Humalog) 0 units SC ACHS [facility]; Protocol Last Admin: 02/11/18 06:50 Dose: 2 units Isosorbide Mononitrate (Imdur Er) 30 mg PO DAILY [facility] Last Admin: 02/11/18 10:29 Dose: 30 mg Lidocaine (Lidoderm) 1 ea TD DAILY [facility] Last Admin: 02/11/18 10:29 Dose: 1 ea Mupirocin (Bactroban Ointment) 1 applic TOP BID [facility] Last Admin: 02/11/18 10:19 Dose: 1 applic Pravastatin Sodium (Pravachol) 40 mg PO HS [facility] Last Admin: 02/10/18 21:20 Dose: 40 mg Sitagliptin Phosphate (Januvia) 100 mg PO DAILY [facility] Last Admin: 02/11/18 10:20 Dose: 100 mg Sucralfate (Carafate Tab) 1 gm PO BIDAC [facility] Last Admin: 02/11/18 10:28 Dose: 1 gm - Labs Labs: 02/11/18 04:20 02/11/18 04:20 PT 10.9 Seconds (9.8-13.1) 02/02/18 12:32 INR 1.0 02/02/18 12:32 APTT 24.7 Seconds (25.6-37.1) L 02/02/18 12:32 - Constitutional Appears: No Acute Distress, Chronically Ill - Head Exam Head Exam: NORMAL INSPECTION - Eye Exam Eye Exam: PERRL - ENT Exam ENT Exam: Normal Exam - Neck Exam Neck Exam: Normal Inspection - Respiratory Exam Respiratory Exam: Decreased Breath Sounds (at bases), Rhonchi (scattered) - Cardiovascular Exam Cardiovascular Exam: REGULAR RHYTHM - GI/Abdominal Exam GI & Abdominal Exam: Soft, Normal Bowel Sounds - Extremities Exam Additional comments: RUE PICC line in place - Neurological Exam Neurological Exam: Alert, CN II-XII Intact Additional comments: No focal motor/sensory deficit., generalized weakness. - Psychiatric Exam Psychiatric exam: Normal Affect - Skin Skin Exam: Warm Assessment and Plan (1) Pneumonia Status: Acute (2) COPD exacerbation Status: Acute (3) Respiratory failure with hypercapnia Status: Acute (4) Change in mental status Status: Resolved - Assessment and Plan (Free Text) Plan: Patient to have CT of the chest to determine in the left lung amount of effusion and or pneumonia, atelectasis, continue DuoNeb, Mucomyst, Merrem, Mucinex DM
--- NOTE | 2018-02-11 19:53 | PN ---
DATE: 02/11/2018 SUBJECTIVE: The patient seen and examined. Interim events noted. Consults noted and appreciated. The patient remains in progressive care unit, on telemetry monitoring. . Awake, responsive, conversant, back to her usual status. No chest pain or shortness of breath. PHYSICAL EXAMINATION: GENERAL: The patient is in no acute distress. VITAL SIGNS: Stable. HEART: S1, S2, normal, regular. LUNGS: Good bilateral air exchange. ABDOMEN: Soft, nontender. EXTREMITIES: No edema. No calf swelling. No tenderness. No acute ischemia. CENTRAL NERVOUS SYSTEM: Essentially unchanged. DIAGNOSTIC DATA: Available diagnostic data reviewed. Telemetry monitoring does not reveal significant arrhythmia. ASSESSMENT: Overall, the patient's general medical condition is stable . Plan as ordered. Manpreet Austin MD
[2018-02-11] MEDS: Pravastatin Sodium 40 MG TAB PO SCH (21:58)
[2018-02-12] MEDS: Albuterol-Ipratrop 3 mg / 0.5 (3 ml) UD INH SCH ×7 (00:13→23:39)
--- NOTE | 2018-02-12 06:23 | CP.PCM.CON ---
History of Present Illness - History of Present Illness History of Present Illness: CT surgery consult note for Dr. Vick Consulted for: persistent pleural effusion Patient is a 78 yr old F with PMH of HTN, HLD, DM, CHF, COPD, CKD who initially presented with AMS, SOB cough and CAMPBELL. Patient was treated for PNA as well as CAMPBELL over the course of her hospital stay. Patient was referred to us after failure to completely resolve pleural effusion after thoracentesis on 02/08. Patient is now in no respiratory distress resting in bed comfortably denies cough, SOB, wheezing or difficulty breathing and often removes her oxygen. She states that she is feeling well and otherwise denies MELENDREZ, CP, SPB, cough, wheezing, abdominal pain, f/c, n/v, and extremity pain or weakness. PMH: HTN, HLD, COPD, CHF, CKD PSH: tonsils, hyst, Csection x 2 All: alprazolam, hydromorphone, zolpidem Social:: denies Review of Systems - Review of Systems All systems: reviewed and no additional remarkable complaints except (as per HPI) Past Patient History - Past Medical History & Family History Past Medical History?: Yes - Past Social History Smoking Status: Never Smoked Alcohol: None Drugs: Denies Home Situation {Lives}: Alone - CARDIAC Hx Cardiac Disorders: Yes Hx Atrial Fibrillation: Yes Hx Cardia Arrhythmia: Yes Hx Congestive Heart Failure: Yes Hx Hypercholesterolemia: Yes Hx Hypertension: Yes Hx Peripheral Edema: Yes - PULMONARY Hx Respiratory Disorders: Yes Hx Asthma: No Hx Bronchitis: Yes Hx Chronic Obstructive Pulmonary Disease (COPD): Yes Hx Pneumonia: Yes - NEUROLOGICAL Hx Neurological Disorder: No - HEENT Hx HEENT Problems: Yes Hx Cataracts: Yes - RENAL Hx Chronic Kidney Disease: Yes - ENDOCRINE/METABOLIC Hx Endocrine Disorders: Yes Hx Diabetes Mellitus Type 2: Yes - HEMATOLOGICAL/ONCOLOGICAL Hx Blood Disorders: Yes Hx Anemia: Yes Hx Human Immunodeficiency Virus (HIV): No - INTEGUMENTARY Hx Dermatological Problems: No - MUSCULOSKELETAL/RHEUMATOLOGICAL Hx Musculoskeletal Disorders: Yes Hx Arthritis: Yes Hx Osteoporosis: Yes - GASTROINTESTINAL Hx Gall Bladder Disease: Yes Hx Gastritis: Yes - GENITOURINARY/GYNECOLOGICAL Hx Genitourinary Disorders: No - PSYCHIATRIC Hx Psychophysiologic Disorder: Yes Hx Anxiety: Yes Hx Depression: Yes - SURGICAL HISTORY Hx Surgeries: Yes Hx Cholecystectomy: Yes Hx Coronary Stent: Yes - ANESTHESIA Hx Anesthesia: Yes Hx Anesthesia Reactions: No Hx Malignant Hyperthermia: No Meds Allergies/Adverse Reactions: Allergies Allergy/AdvReac Type Severity Reaction Status Date / Time alprazolam [From Xanax] Allergy SWELLING Verified 01/14/18 15:19 hydromorphone HCl Allergy RASH Verified 01/14/18 15:19 [From Dilaudid] zolpidem tartrate Allergy RASH Verified 01/14/18 15:19 [From Ambien] - Medications Medications: Current Medications Acetaminophen (Tylenol 325mg Tab) 650 mg PO Q6 PRN PRN Reason: Pain, Mild (1-3) Last Admin: 02/08/18 20:55 Dose: 650 mg Acetylcysteine (Mucomyst 10% 4ml) 2 ml IH RBID [facility] Last Admin: 02/11/18 19:15 Dose: 2 ml Albuterol/Ipratropium (Duoneb 3 Mg/0.5 Mg (3 Ml) Ud) 3 ml INH RQ4 [facility] Last Admin: 02/12/18 04:14 Dose: 3 ml Amlodipine Besylate (Norvasc) 10 mg PO DAILY [facility] Last Admin: 02/11/18 10:20 Dose: 10 mg Bisoprolol Fumarate (Zebeta) 10 mg PO DAILY [facility] Last Admin: 02/11/18 10:31 Dose: 10 mg Cholecalciferol (Vitamin D) 1,000 intlu PO DAILY [facility] Last Admin: 02/11/18 10:30 Dose: 1,000 intlu Clotrimazole (Lotrimin 1%) 1 applic TOP BID [facility] Last Admin: 02/11/18 18:40 Dose: 1 applic Dextrose (Dextrose 50% Inj) 0 ml IV STAT PRN; Protocol PRN Reason: Hypoglycemia Protocol Dextrose (Glutose 15) 0 gm PO ONCE PRN; Protocol PRN Reason: Hypoglycemia Protocol Famotidine (Pepcid) 40 mg PO HS [facility] Last Admin: 02/11/18 21:58 Dose: 40 mg Ferrous Gluconate (Fergon) 324 mg PO DAILY [facility] Last Admin: 02/11/18 10:28 Dose: 324 mg Furosemide (Lasix) 40 mg PO DAILY [facility] Last Admin: 02/11/18 10:29 Dose: 40 mg Glipizide (Glucotrol) 10 mg PO DAILY [facility] Last Admin: 02/11/18 10:19 Dose: 10 mg Glucagon (Glucagen Diagnostic Kit) 0 mg IM STAT PRN; Protocol PRN Reason: Hypoglycemia Protocol Guaifenesin/Dextromethorphan (Mucinex-Dm 600-30 Mg) 1 tab PO BID [facility] Last Admin: 02/11/18 18:40 Dose: 1 tab Meropenem 500 mg/ Sodium (Chloride) 100 mls @ 100 mls/hr IVPB DAILY [facility]; Protocol Last Admin: 02/11/18 10:33 Dose: 100 mls/hr Insulin Human Lispro (Humalog) 0 units SC ACHS [facility]; Protocol Last Admin: 02/11/18 21:59 Dose: 2 units Isosorbide Mononitrate (Imdur Er) 30 mg PO DAILY [facility] Last Admin: 02/11/18 10:29 Dose: 30 mg Lidocaine (Lidoderm) 1 ea TD DAILY [facility] Last Admin: 02/11/18 10:29 Dose: 1 ea Mupirocin (Bactroban Ointment) 1 applic TOP BID [facility] Last Admin: 02/11/18 18:37 Dose: 1 applic Pravastatin Sodium (Pravachol) 40 mg PO HS [facility] Last Admin: 02/11/18 21:58 Dose: 40 mg Sitagliptin Phosphate (Januvia) 100 mg PO DAILY [facility] Last Admin: 02/11/18 10:20 Dose: 100 mg Sucralfate (Carafate Tab) 1 gm PO BIDAC [facility] Last Admin: 02/11/18 18:38 Dose: 1 gm Physical Exam - Constitutional Appears: Well, Non-toxic, No Acute Distress - Head Exam Head Exam: ATRAUMATIC, NORMOCEPHALIC - Eye Exam Eye Exam: EOMI - ENT Exam ENT Exam: Mucous Membranes Moist - Respiratory Exam Respiratory Exam: NORMAL BREATHING PATTERN. absent: Decreased Breath Sounds, Respiratory Distress - Cardiovascular Exam Cardiovascular Exam: REGULAR RHYTHM - GI/Abdominal Exam GI & Abdominal Exam: Soft. absent: Distended, Firm, Guarding, Tenderness - Extremities Exam Extremities exam: Positive for: pedal pulses present. Negative for: calf tenderness, pedal edema - Neurological Exam Neurological exam: Alert, Oriented x3 - Psychiatric Exam Psychiatric exam: Normal Affect, Normal Mood - Skin Skin Exam: Dry, Intact, Normal Color, Warm Results - Vital Signs Recent Vital Signs: Last Vital Signs Temp 97.9 F 02/12/18 04:57 Pulse 75 02/12/18 04:57 Resp 18 02/12/18 04:57 BP 112/58 L 02/12/18 04:57 Pulse Ox 94 L 02/12/18 04:57 - Labs Result Diagrams: 02/11/18 04:20 02/11/18 04:20 Labs: Laboratory Results - last 24 hr 02/09/18 02/09/18 02/09/18 11:31 16:32 21:51 Sodium Potassium Chloride Carbon Dioxide Anion Gap BUN Creatinine Est GFR ( Amer) Est GFR (Non-Af Amer) POC Glucose (mg/dL) 198 H 156 H 238 H Random Glucose Calcium Total Bilirubin AST ALT Alkaline Phosphatase Total Protein Albumin Globulin Albumin/Globulin Ratio 02/10/18 02/10/18 02/10/18 05:18 11:09 16:31 Sodium Potassium Chloride Carbon Dioxide Anion Gap BUN Creatinine Est GFR ( Amer) Est GFR (Non-Af Amer) POC Glucose (mg/dL) 153 H 296 H 359 H Random Glucose Calcium Total Bilirubin AST ALT Alkaline Phosphatase Total Protein Albumin Globulin Albumin/Globulin Ratio 02/10/18 02/11/18 02/11/18 21:37 04:20 05:34 Sodium 135 Potassium 4.2 Chloride 100 Carbon Dioxide 29 Anion Gap 10 BUN 37 H Creatinine 1.3 H Est GFR ( Amer) 48 Est GFR (Non-Af Amer) 40 POC Glucose (mg/dL) 287 H 177 H Random Glucose 197 H Calcium 8.2 L Total Bilirubin 0.4 AST 20 ALT 25 Alkaline Phosphatase 59 Total Protein 5.8 L Albumin 3.0 L Globulin 2.8 Albumin/Globulin Ratio 1.1 02/11/18 02/11/18 02/11/18 12:01 16:34 21:09 Sodium Potassium Chloride Carbon Dioxide Anion Gap BUN Creatinine Est GFR ( Amer) Est GFR (Non-Af Amer) POC Glucose (mg/dL) 167 H 306 H 326 H Random Glucose Calcium Total Bilirubin AST ALT Alkaline Phosphatase Total Protein Albumin Globulin Albumin/Globulin Ratio Assessment & Plan - Assessment and Plan (Free Text) Assessment: 78 yr old female with persistent pleural effusions bilaterally s/p Left thoracentesis 02/08 Plan: continue with abx per ID recs continue to drain effusions per IR via thoracentesis as needed/ if becomes symtomatic or increases Incentive spirometer will consider possible intervention if continued thoracentesis does not improve/ resolve symptoms d/w Dr. Nava Marroquin, PGY 1 - Date & Time Date: 02/11/18 Time: 19:30
[2018-02-12] MEDS: Insulin Lispro (humaLOG) 100 Units/ml Inj SC SCH ×4 (06:41→22:58)
[2018-02-12 06:42] LABS: MEAN CELL VOLUME 89.8 fl (81.0-99.0); MEAN CORPUSCULAR HEMOGLOBIN 28.4 pg (27.0-31.0); MEAN CORPUSCULAR HGB CONC 31.6 g/dL (33.0-37.0); RBC 2.46 Mil/uL (3.80-5.20); RED CELL DISTRIBUTION WIDTH 15.4 % (11.5-14.5); WHITE BLOOD COUNT 6.5 K/uL (4.8-10.8)
[2018-02-12 06:50] LABS: ALB/GLOB RATIO 1.1 (1.0-2.1); ALBUMIN 2.8 g/dL (3.5-5.0)
[2018-02-12] MEDS: Acetylcysteine 10% 4 ML IH SCH ×2 (08:04→19:51)
[2018-02-12] MEDS: guaiFENesin-DM 600-30 mg ER Tab PO SCH (09:15)
[2018-02-12] MEDS: Cholecalciferol 1,000 INTLU TAB PO SCH (09:15)
[2018-02-12] MEDS: Lidocaine 5% Patch TD SCH (09:16)
[2018-02-12] MEDS: Meropenem 500 MG in Sodium Chloride 0.9% 100 ML IVPB SCH (09:18)
--- NOTE | 2018-02-12 11:59 | CP.PCM.PN ---
Subjective - Date & Time of Evaluation Date of Evaluation: 02/12/18 Time of Evaluation: 11:59 - Subjective Subjective: pt is feeling slightly better ,on nasal canula, no cp, no abd. pain, no sob Objective - Vital Signs/Intake and Output Vital Signs (last 24 hours): Temp Pulse Resp BP Pulse Ox 98.0 F 75 20 130/70 96 02/12/18 09:26 02/12/18 09:26 02/12/18 09:26 02/12/18 09:26 02/12/18 09:26 - Medications Medications: Current Medications Acetaminophen (Tylenol 325mg Tab) 650 mg PO Q6 PRN PRN Reason: Pain, Mild (1-3) Last Admin: 02/08/18 20:55 Dose: 650 mg Acetylcysteine (Mucomyst 10% 4ml) 2 ml IH RBID [facility] Last Admin: 02/12/18 08:04 Dose: 2 ml Albuterol/Ipratropium (Duoneb 3 Mg/0.5 Mg (3 Ml) Ud) 3 ml INH RQ4 [facility] Last Admin: 02/12/18 11:47 Dose: 3 ml Amlodipine Besylate (Norvasc) 10 mg PO DAILY [facility] Last Admin: 02/12/18 09:15 Dose: 10 mg Bisoprolol Fumarate (Zebeta) 10 mg PO DAILY [facility] Last Admin: 02/12/18 09:15 Dose: 10 mg Cholecalciferol (Vitamin D) 1,000 intlu PO DAILY [facility] Last Admin: 02/12/18 09:15 Dose: 1,000 intlu Clotrimazole (Lotrimin 1%) 1 applic TOP BID [facility] Last Admin: 02/12/18 09:17 Dose: 1 applic Dextrose (Dextrose 50% Inj) 0 ml IV STAT PRN; Protocol PRN Reason: Hypoglycemia Protocol Dextrose (Glutose 15) 0 gm PO ONCE PRN; Protocol PRN Reason: Hypoglycemia Protocol Famotidine (Pepcid) 40 mg PO HS [facility] Last Admin: 02/11/18 21:58 Dose: 40 mg Ferrous Gluconate (Fergon) 324 mg PO DAILY [facility] Last Admin: 02/12/18 09:15 Dose: 324 mg Furosemide (Lasix) 40 mg PO DAILY [facility] Last Admin: 02/12/18 09:15 Dose: 40 mg Glipizide (Glucotrol) 10 mg PO DAILY [facility] Last Admin: 02/11/18 10:19 Dose: 10 mg Glucagon (Glucagen Diagnostic Kit) 0 mg IM STAT PRN; Protocol PRN Reason: Hypoglycemia Protocol Guaifenesin/Dextromethorphan (Mucinex-Dm 600-30 Mg) 1 tab PO BID [facility] Last Admin: 02/12/18 09:15 Dose: 1 tab Meropenem 500 mg/ Sodium (Chloride) 100 mls @ 100 mls/hr IVPB DAILY [facility]; Protocol Last Admin: 02/12/18 09:18 Dose: 100 mls/hr Insulin Human Lispro (Humalog) 0 units SC ACHS [facility]; Protocol Last Admin: 02/12/18 06:41 Dose: Not Given Isosorbide Mononitrate (Imdur Er) 30 mg PO DAILY [facility] Last Admin: 02/12/18 09:16 Dose: 30 mg Lidocaine (Lidoderm) 1 ea TD DAILY [facility] Last Admin: 02/12/18 09:16 Dose: 1 ea Mupirocin (Bactroban Ointment) 1 applic TOP BID [facility] Last Admin: 02/12/18 09:17 Dose: 1 applic Pravastatin Sodium (Pravachol) 40 mg PO HS [facility] Last Admin: 02/11/18 21:58 Dose: 40 mg Sitagliptin Phosphate (Januvia) 100 mg PO DAILY [facility] Last Admin: 02/12/18 09:16 Dose: 100 mg Sucralfate (Carafate Tab) 1 gm PO BIDAC [facility] Last Admin: 02/12/18 09:16 Dose: 1 gm - Labs Labs: 02/12/18 06:25 02/12/18 06:25 PT 10.9 Seconds (9.8-13.1) 02/02/18 12:32 INR 1.0 02/02/18 12:32 APTT 24.7 Seconds (25.6-37.1) L 02/02/18 12:32 - Constitutional Appears: Well, Non-toxic, No Acute Distress - Head Exam Head Exam: ATRAUMATIC, NORMAL INSPECTION - Eye Exam Eye Exam: EOMI, Normal appearance, PERRL Pupil Exam: NORMAL ACCOMODATION Additional comments: conj; slightly pale - ENT Exam ENT Exam: Mucous Membranes Moist - Neck Exam Neck Exam: Full ROM - Respiratory Exam Respiratory Exam: NORMAL BREATHING PATTERN Additional comments: improved bs on left side - Cardiovascular Exam Cardiovascular Exam: REGULAR RHYTHM, +S1, +S2 - GI/Abdominal Exam GI & Abdominal Exam: Soft, Normal Bowel Sounds - Rectal Exam Rectal Exam: Deferred - Extremities Exam Additional comments: no edema of legs - Neurological Exam Neurological Exam: Alert, Awake, CN II-XII Intact, Oriented x3 - Psychiatric Exam Psychiatric exam: Normal Affect, Normal Mood - Skin Skin Exam: Normal Color, Warm Assessment and Plan - Assessment and Plan (Free Text) Assessment: 78 yo HF with pmh/o htn, dm hld, chf, copd, ? spinal stenosis, ckd with sob, being treated for mycoplasma pneumonia with b/l infiltrates, AMS this am, s/p [employer], pt is more alert, awake 1. CAMPBELL on ckd-3 2. HTN 3. Mycoplasma pneumonia 4. DM 5. s/p AMS, s/p [employer] 6. decreased left side BS sec to pleural effusion c/w IV ABx as per ID, renal function is stable. s/p removal of rt IJV kavitha cath s/p thoracentsis yesterday, drained about 350 ml follow up with pulmonary renal function is stable, c/w gentle diuresis
--- NOTE | 2018-02-12 13:05 | CP.PCM.PN ---
Subjective - Date & Time of Evaluation Date of Evaluation: 02/12/18 Time of Evaluation: 11:10 - Subjective Subjective: F/U PNA Pt awake, no c/o, no cough, no SOB, on NC. Objective - Vital Signs/Intake and Output Vital Signs (last 24 hours): Temp Pulse Resp BP Pulse Ox 98.0 F 75 20 130/70 96 02/12/18 09:26 02/12/18 09:26 02/12/18 09:26 02/12/18 09:26 02/12/18 09:26 - Medications Medications: Current Medications Acetaminophen (Tylenol 325mg Tab) 650 mg PO Q6 PRN PRN Reason: Pain, Mild (1-3) Last Admin: 02/08/18 20:55 Dose: 650 mg Acetylcysteine (Mucomyst 10% 4ml) 2 ml IH RBID [facility] Last Admin: 02/12/18 08:04 Dose: 2 ml Albuterol/Ipratropium (Duoneb 3 Mg/0.5 Mg (3 Ml) Ud) 3 ml INH RQ4 [facility] Last Admin: 02/12/18 11:47 Dose: 3 ml Amlodipine Besylate (Norvasc) 10 mg PO DAILY [facility] Last Admin: 02/12/18 09:15 Dose: 10 mg Bisoprolol Fumarate (Zebeta) 10 mg PO DAILY [facility] Last Admin: 02/12/18 09:15 Dose: 10 mg Cholecalciferol (Vitamin D) 1,000 intlu PO DAILY [facility] Last Admin: 02/12/18 09:15 Dose: 1,000 intlu Clotrimazole (Lotrimin 1%) 1 applic TOP BID [facility] Last Admin: 02/12/18 09:17 Dose: 1 applic Dextrose (Dextrose 50% Inj) 0 ml IV STAT PRN; Protocol PRN Reason: Hypoglycemia Protocol Dextrose (Glutose 15) 0 gm PO ONCE PRN; Protocol PRN Reason: Hypoglycemia Protocol Epoetin Johnny (Procrit) 10,000 unit SC TTS [facility] Famotidine (Pepcid) 40 mg PO HS [facility] Last Admin: 02/11/18 21:58 Dose: 40 mg Ferrous Gluconate (Fergon) 324 mg PO DAILY [facility] Last Admin: 02/12/18 09:15 Dose: 324 mg Furosemide (Lasix) 40 mg PO DAILY [facility] Last Admin: 02/12/18 09:15 Dose: 40 mg Glipizide (Glucotrol) 10 mg PO DAILY [facility] Last Admin: 02/11/18 10:19 Dose: 10 mg Glucagon (Glucagen Diagnostic Kit) 0 mg IM STAT PRN; Protocol PRN Reason: Hypoglycemia Protocol Guaifenesin/Dextromethorphan (Mucinex-Dm 600-30 Mg) 1 tab PO BID [facility] Last Admin: 02/12/18 09:15 Dose: 1 tab Meropenem 500 mg/ Sodium (Chloride) 100 mls @ 100 mls/hr IVPB DAILY [facility]; Protocol Last Admin: 02/12/18 09:18 Dose: 100 mls/hr Insulin Human Lispro (Humalog) 0 units SC ACHS [facility]; Protocol Last Admin: 02/12/18 06:41 Dose: Not Given Isosorbide Mononitrate (Imdur Er) 30 mg PO DAILY [facility] Last Admin: 02/12/18 09:16 Dose: 30 mg Lidocaine (Lidoderm) 1 ea TD DAILY [facility] Last Admin: 02/12/18 09:16 Dose: 1 ea Mupirocin (Bactroban Ointment) 1 applic TOP BID [facility] Last Admin: 02/12/18 09:17 Dose: 1 applic Pravastatin Sodium (Pravachol) 40 mg PO HS [facility] Last Admin: 02/11/18 21:58 Dose: 40 mg Sitagliptin Phosphate (Januvia) 100 mg PO DAILY [facility] Last Admin: 02/12/18 09:16 Dose: 100 mg Sucralfate (Carafate Tab) 1 gm PO BIDAC [facility] Last Admin: 02/12/18 09:16 Dose: 1 gm - Labs Labs: 02/12/18 06:25 02/12/18 06:25 PT 10.9 Seconds (9.8-13.1) 02/02/18 12:32 INR 1.0 02/02/18 12:32 APTT 24.7 Seconds (25.6-37.1) L 02/02/18 12:32 - Constitutional Appears: No Acute Distress - Head Exam Head Exam: NORMAL INSPECTION - Eye Exam Eye Exam: PERRL - ENT Exam ENT Exam: Normal Exam - Neck Exam Neck Exam: Normal Inspection - Respiratory Exam Respiratory Exam: Decreased Breath Sounds (at bases), Rhonchi (scattered at bases) - Cardiovascular Exam Cardiovascular Exam: REGULAR RHYTHM - GI/Abdominal Exam GI & Abdominal Exam: Soft, Normal Bowel Sounds - Extremities Exam Additional comments: RUE PICC line - Neurological Exam Neurological Exam: Alert, CN II-XII Intact Additional comments: No focal motor/sensory deficit. Generalized weakness. - Psychiatric Exam Psychiatric exam: Normal Affect - Skin Skin Exam: Warm Assessment and Plan (1) Pneumonia Status: Acute (2) COPD exacerbation Status: Acute (3) Respiratory failure with hypercapnia Status: Acute (4) Change in mental status Status: Resolved - Assessment and Plan (Free Text) Plan: Hgb 7.0 today, for 2 U PRBC today, continue Merren , DuoNeb, Mucomyst , Mucinex DMand rest of Tx., CT decreased L Pleural effusion, no need at this moment for interventional procedure,
--- NOTE | 2018-02-12 14:09 | PN ---
DATE: 02/12/2018 SUBJECTIVE: The patient is seen and examined. Interim events noted. Consults noted and appreciated. The patient remains in progressive care unit, on telemetry monitoring. Sleeping, arousable, feels okay. No chest pain. No shortness of breath. Complains of generalized weakness. PHYSICAL EXAMINATION GENERAL: The patient is in no acute distress. VITAL SIGNS: Stable. HEART: S1 and S2, normal and regular. LUNGS: Good bilateral air exchange. ABDOMEN: Soft, nontender. EXTREMITIES: No edema. No calf swelling. No tenderness. No acute ischemia. 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 DIAGNOSTIC DATA: Available diagnostic data reviewed. Telemetry monitoring does not show significant arrhythmias. Hemoglobin is down to 7. ASSESSMENT AND PLAN: Overall, the patient is medically stable. We will transfuse two more units of blood to improved hemoglobin and oxygenation. Plan as ordered. Case and plan discussed with the patient. Manpreet Austin MD
[2018-02-12] MEDS: Pravastatin Sodium 40 MG TAB PO SCH (22:59)
[2018-02-13] MEDS: Albuterol-Ipratrop 3 mg / 0.5 (3 ml) UD INH SCH ×3 (05:09→11:12)
[2018-02-13 06:09] LABS: MEAN CELL VOLUME 90.6 fl (81.0-99.0); MEAN CORPUSCULAR HEMOGLOBIN 29.5 pg (27.0-31.0); MEAN CORPUSCULAR HGB CONC 32.5 g/dL (33.0-37.0); RBC 3.74 Mil/uL (3.80-5.20); RED CELL DISTRIBUTION WIDTH 15.1 % (11.5-14.5); WHITE BLOOD COUNT 5.6 K/uL (4.8-10.8)
[2018-02-13 06:25] LABS: ALB/GLOB RATIO 1.1 (1.0-2.1); ALBUMIN 3.4 g/dL (3.5-5.0); CALCIUM 8.2 mg/dL (8.4-10.2)
[2018-02-13] MEDS: Acetylcysteine 10% 4 ML IH SCH (07:20)
[2018-02-13 08:18] VITALS: RESP 20
[2018-02-13] MEDS: Cholecalciferol 1,000 INTLU TAB PO SCH (10:08)
[2018-02-13] MEDS: Lidocaine 5% Patch TD SCH (10:09)
[2018-02-13] MEDS: Insulin Lispro (humaLOG) 100 Units/ml Inj SC SCH (10:10)
[2018-02-13] MEDS: guaiFENesin-DM 600-30 mg ER Tab PO SCH (10:11)
--- NOTE | 2018-02-13 10:53 | CP.PCM.PN ---
Subjective - Date & Time of Evaluation Date of Evaluation: 02/13/18 Time of Evaluation: 10:00 - Subjective Subjective: CT surgery: Wilfrede Patient seen and examined this am at bedside. FREDDYO per nursing. Patient states that she feels well and denies any MELENDREZ, SOB, CP, abdominal pain, n/v/d, extremity pain or weakness. She is tolerating diet well and is saturating well on RA. Objective - Vital Signs/Intake and Output Vital Signs (last 24 hours): Temp Pulse Resp BP Pulse Ox 97.4 F L 70 20 137/62 96 02/13/18 08:18 02/13/18 08:18 02/13/18 08:18 02/13/18 10:07 02/13/18 08:18 Intake and Output: 02/13/18 02/13/18 06:59 18:59 Intake Total 725 Balance 725 - Medications Medications: Current Medications Acetaminophen (Tylenol 325mg Tab) 650 mg PO Q6 PRN PRN Reason: Pain, Mild (1-3) Last Admin: 02/08/18 20:55 Dose: 650 mg Acetylcysteine (Mucomyst 10% 4ml) 2 ml IH RBID [facility] Last Admin: 02/13/18 07:20 Dose: 2 ml Albuterol/Ipratropium (Duoneb 3 Mg/0.5 Mg (3 Ml) Ud) 3 ml INH RQ4 [facility] Last Admin: 02/13/18 07:21 Dose: 3 ml Amlodipine Besylate (Norvasc) 10 mg PO DAILY [facility] Last Admin: 02/13/18 10:09 Dose: 10 mg Bisoprolol Fumarate (Zebeta) 10 mg PO DAILY [facility] Last Admin: 02/13/18 10:08 Dose: 10 mg Cholecalciferol (Vitamin D) 1,000 intlu PO DAILY [facility] Last Admin: 02/13/18 10:08 Dose: 1,000 intlu Clotrimazole (Lotrimin 1%) 1 applic TOP BID [facility] Last Admin: 02/13/18 10:11 Dose: 1 applic Dextrose (Dextrose 50% Inj) 0 ml IV STAT PRN; Protocol PRN Reason: Hypoglycemia Protocol Dextrose (Glutose 15) 0 gm PO ONCE PRN; Protocol PRN Reason: Hypoglycemia Protocol Epoetin Johnny (Procrit) 10,000 unit SC TTS [facility] Famotidine (Pepcid) 40 mg PO HS [facility] Last Admin: 02/12/18 22:59 Dose: 40 mg Ferrous Gluconate (Fergon) 324 mg PO DAILY [facility] Last Admin: 02/13/18 10:08 Dose: 324 mg Furosemide (Lasix) 40 mg PO DAILY [facility] Last Admin: 02/13/18 10:07 Dose: 40 mg Glipizide (Glucotrol) 10 mg PO DAILY [facility] Last Admin: 02/13/18 10:08 Dose: 10 mg Glucagon (Glucagen Diagnostic Kit) 0 mg IM STAT PRN; Protocol PRN Reason: Hypoglycemia Protocol Guaifenesin/Dextromethorphan (Mucinex-Dm 600-30 Mg) 1 tab PO BID [facility] Last Admin: 02/13/18 10:11 Dose: 1 tab Meropenem 500 mg/ Sodium (Chloride) 100 mls @ 100 mls/hr IVPB DAILY [facility]; Protocol Last Admin: 02/12/18 09:18 Dose: 100 mls/hr Insulin Human Lispro (Humalog) 0 units SC ACHS [facility]; Protocol Last Admin: 02/13/18 10:10 Dose: Not Given Isosorbide Mononitrate (Imdur Er) 30 mg PO DAILY [facility] Last Admin: 02/13/18 10:09 Dose: 30 mg Lidocaine (Lidoderm) 1 ea TD DAILY [facility] Last Admin: 02/13/18 10:09 Dose: 1 ea Mupirocin (Bactroban Ointment) 1 applic TOP BID [facility] Last Admin: 02/13/18 10:06 Dose: 1 applic Pravastatin Sodium (Pravachol) 40 mg PO HS [facility] Last Admin: 02/12/18 22:59 Dose: 40 mg Sitagliptin Phosphate (Januvia) 100 mg PO DAILY [facility] Last Admin: 02/13/18 10:08 Dose: 100 mg Sucralfate (Carafate Tab) 1 gm PO BIDAC [facility] Last Admin: 02/13/18 10:07 Dose: 1 gm - Labs Labs: 02/13/18 04:55 02/13/18 04:55 PT 10.9 Seconds (9.8-13.1) 02/02/18 12:32 INR 1.0 02/02/18 12:32 APTT 24.7 Seconds (25.6-37.1) L 02/02/18 12:32 - Constitutional Appears: Well, Non-toxic, No Acute Distress - Head Exam Head Exam: ATRAUMATIC, NORMOCEPHALIC - Eye Exam Eye Exam: EOMI, Normal appearance - ENT Exam ENT Exam: Mucous Membranes Moist - Respiratory Exam Respiratory Exam: NORMAL BREATHING PATTERN - Cardiovascular Exam Cardiovascular Exam: REGULAR RHYTHM - GI/Abdominal Exam GI & Abdominal Exam: Soft. absent: Distended, Firm, Guarding, Tenderness - Extremities Exam Extremities Exam: absent: Calf Tenderness, Pedal Edema - Neurological Exam Neurological Exam: Alert, Awake, Oriented x3 - Psychiatric Exam Psychiatric exam: Normal Affect, Normal Mood - Skin Skin Exam: Dry, Intact, Normal Color, Warm Assessment and Plan - Assessment and Plan (Free Text) Assessment: 78 yr old female with resolved/ improving pleural effusion Plan: continue with abx per ID recs If becomes symptomatic IR drainage recommended Incentive spirometer will consider possible intervention if continued thoracentesis does not improve/ resolve symptoms d/w Dr. Nava Marroquin, PGY 1
[2018-02-13] MEDS: Meropenem 500 MG in Sodium Chloride 0.9% 100 ML IVPB SCH (11:03)
--- NOTE | 2018-02-13 11:42 | CP.PCM.PN ---
Subjective - Date & Time of Evaluation Date of Evaluation: 02/11/18 Time of Evaluation: 08:15 - Subjective Subjective: no overnight events Objective - Vital Signs/Intake and Output Vital Signs (last 24 hours): Temp Pulse Resp BP Pulse Ox 97.4 F L 70 20 137/62 96 02/13/18 08:18 02/13/18 08:18 02/13/18 08:18 02/13/18 10:07 02/13/18 08:18 Intake and Output: 02/13/18 02/13/18 06:59 18:59 Intake Total 725 Balance 725 - Medications Medications: Current Medications Acetaminophen (Tylenol 325mg Tab) 650 mg PO Q6 PRN PRN Reason: Pain, Mild (1-3) Last Admin: 02/08/18 20:55 Dose: 650 mg Acetylcysteine (Mucomyst 10% 4ml) 2 ml IH RBID [facility] Last Admin: 02/13/18 07:20 Dose: 2 ml Albuterol/Ipratropium (Duoneb 3 Mg/0.5 Mg (3 Ml) Ud) 3 ml INH RQ4 [facility] Last Admin: 02/13/18 11:12 Dose: 3 ml Amlodipine Besylate (Norvasc) 10 mg PO DAILY [facility] Last Admin: 02/13/18 10:09 Dose: 10 mg Bisoprolol Fumarate (Zebeta) 10 mg PO DAILY [facility] Last Admin: 02/13/18 10:08 Dose: 10 mg Cholecalciferol (Vitamin D) 1,000 intlu PO DAILY [facility] Last Admin: 02/13/18 10:08 Dose: 1,000 intlu Clotrimazole (Lotrimin 1%) 1 applic TOP BID [facility] Last Admin: 02/13/18 10:11 Dose: 1 applic Dextrose (Dextrose 50% Inj) 0 ml IV STAT PRN; Protocol PRN Reason: Hypoglycemia Protocol Dextrose (Glutose 15) 0 gm PO ONCE PRN; Protocol PRN Reason: Hypoglycemia Protocol Epoetin Johnny (Procrit) 10,000 unit SC TTS [facility] Famotidine (Pepcid) 40 mg PO HS [facility] Last Admin: 02/12/18 22:59 Dose: 40 mg Ferrous Gluconate (Fergon) 324 mg PO DAILY [facility] Last Admin: 02/13/18 10:08 Dose: 324 mg Furosemide (Lasix) 40 mg PO DAILY [facility] Last Admin: 02/13/18 10:07 Dose: 40 mg Glipizide (Glucotrol) 10 mg PO DAILY [facility] Last Admin: 02/13/18 10:08 Dose: 10 mg Glucagon (Glucagen Diagnostic Kit) 0 mg IM STAT PRN; Protocol PRN Reason: Hypoglycemia Protocol Guaifenesin/Dextromethorphan (Mucinex-Dm 600-30 Mg) 1 tab PO BID [facility] Last Admin: 02/13/18 10:11 Dose: 1 tab Meropenem 500 mg/ Sodium (Chloride) 100 mls @ 100 mls/hr IVPB DAILY [facility]; Protocol Last Admin: 02/13/18 11:03 Dose: 100 mls/hr Insulin Human Lispro (Humalog) 0 units SC ACHS [facility]; Protocol Last Admin: 02/13/18 10:10 Dose: Not Given Isosorbide Mononitrate (Imdur Er) 30 mg PO DAILY [facility] Last Admin: 02/13/18 10:09 Dose: 30 mg Lidocaine (Lidoderm) 1 ea TD DAILY [facility] Last Admin: 02/13/18 10:09 Dose: 1 ea Mupirocin (Bactroban Ointment) 1 applic TOP BID [facility] Last Admin: 02/13/18 10:06 Dose: 1 applic Pravastatin Sodium (Pravachol) 40 mg PO HS [facility] Last Admin: 02/12/18 22:59 Dose: 40 mg Sitagliptin Phosphate (Januvia) 100 mg PO DAILY [facility] Last Admin: 02/13/18 10:08 Dose: 100 mg Sucralfate (Carafate Tab) 1 gm PO BIDAC [facility] Last Admin: 02/13/18 10:07 Dose: 1 gm - Labs Labs: 02/13/18 04:55 02/13/18 04:55 PT 10.9 Seconds (9.8-13.1) 02/02/18 12:32 INR 1.0 02/02/18 12:32 APTT 24.7 Seconds (25.6-37.1) L 02/02/18 12:32 - Head Exam Head Exam: NORMOCEPHALIC - Neck Exam Neck Exam: Normal Inspection - Respiratory Exam Respiratory Exam: Rhonchi - Cardiovascular Exam Cardiovascular Exam: REGULAR RHYTHM - GI/Abdominal Exam GI & Abdominal Exam: Soft, Normal Bowel Sounds Assessment and Plan - Assessment and Plan (Free Text) Assessment: 78 yo female with multiple medical problems no new GI issues tolerating diet
[2018-02-13 12:02] VITALS: BP 130/78; PULSE 81; TEMP 97.9; O2SAT 95
--- NOTE | 2018-02-13 13:05 | CP.PCM.PN ---
Subjective - Date & Time of Evaluation Date of Evaluation: 02/13/18 Time of Evaluation: 10:40 - Subjective Subjective: F/U PNA. Pt awake, no SOB with O2, no cough, no chest congestion. Objective - Vital Signs/Intake and Output Vital Signs (last 24 hours): Temp Pulse Resp BP Pulse Ox 97.9 F 81 20 130/78 95 02/13/18 12:02 02/13/18 12:02 02/13/18 12:02 02/13/18 12:02 02/13/18 12:02 Intake and Output: 02/13/18 02/13/18 06:59 18:59 Intake Total 725 Balance 725 - Medications Medications: Current Medications Acetaminophen (Tylenol 325mg Tab) 650 mg PO Q6 PRN PRN Reason: Pain, Mild (1-3) Last Admin: 02/08/18 20:55 Dose: 650 mg Acetylcysteine (Mucomyst 10% 4ml) 2 ml IH RBID [facility] Last Admin: 02/13/18 07:20 Dose: 2 ml Albuterol/Ipratropium (Duoneb 3 Mg/0.5 Mg (3 Ml) Ud) 3 ml INH RQ4 [facility] Last Admin: 02/13/18 11:12 Dose: 3 ml Amlodipine Besylate (Norvasc) 10 mg PO DAILY [facility] Last Admin: 02/13/18 10:09 Dose: 10 mg Bisoprolol Fumarate (Zebeta) 10 mg PO DAILY [facility] Last Admin: 02/13/18 10:08 Dose: 10 mg Cholecalciferol (Vitamin D) 1,000 intlu PO DAILY [facility] Last Admin: 02/13/18 10:08 Dose: 1,000 intlu Clotrimazole (Lotrimin 1%) 1 applic TOP BID [facility] Last Admin: 02/13/18 10:11 Dose: 1 applic Dextrose (Dextrose 50% Inj) 0 ml IV STAT PRN; Protocol PRN Reason: Hypoglycemia Protocol Dextrose (Glutose 15) 0 gm PO ONCE PRN; Protocol PRN Reason: Hypoglycemia Protocol Epoetin Johnny (Procrit) 10,000 unit SC TTS [facility] Famotidine (Pepcid) 40 mg PO HS [facility] Last Admin: 02/12/18 22:59 Dose: 40 mg Ferrous Gluconate (Fergon) 324 mg PO DAILY [facility] Last Admin: 02/13/18 10:08 Dose: 324 mg Furosemide (Lasix) 40 mg PO DAILY [facility] Last Admin: 02/13/18 10:07 Dose: 40 mg Glipizide (Glucotrol) 10 mg PO DAILY [facility] Last Admin: 02/13/18 10:08 Dose: 10 mg Glucagon (Glucagen Diagnostic Kit) 0 mg IM STAT PRN; Protocol PRN Reason: Hypoglycemia Protocol Guaifenesin/Dextromethorphan (Mucinex-Dm 600-30 Mg) 1 tab PO BID [facility] Last Admin: 02/13/18 10:11 Dose: 1 tab Meropenem 500 mg/ Sodium (Chloride) 100 mls @ 100 mls/hr IVPB DAILY [facility]; Protocol Last Admin: 02/13/18 11:03 Dose: 100 mls/hr Insulin Human Lispro (Humalog) 0 units SC ACHS [facility]; Protocol Last Admin: 02/13/18 10:10 Dose: Not Given Isosorbide Mononitrate (Imdur Er) 30 mg PO DAILY [facility] Last Admin: 02/13/18 10:09 Dose: 30 mg Lidocaine (Lidoderm) 1 ea TD DAILY [facility] Last Admin: 02/13/18 10:09 Dose: 1 ea Mupirocin (Bactroban Ointment) 1 applic TOP BID [facility] Last Admin: 02/13/18 10:06 Dose: 1 applic Pravastatin Sodium (Pravachol) 40 mg PO HS [facility] Last Admin: 02/12/18 22:59 Dose: 40 mg Sitagliptin Phosphate (Januvia) 100 mg PO DAILY [facility] Last Admin: 02/13/18 10:08 Dose: 100 mg Sucralfate (Carafate Tab) 1 gm PO BIDAC [facility] Last Admin: 02/13/18 10:07 Dose: 1 gm - Labs Labs: 02/13/18 04:55 02/13/18 04:55 PT 10.9 Seconds (9.8-13.1) 02/02/18 12:32 INR 1.0 02/02/18 12:32 APTT 24.7 Seconds (25.6-37.1) L 02/02/18 12:32 - Constitutional Appears: No Acute Distress - Head Exam Head Exam: NORMAL INSPECTION - Eye Exam Eye Exam: PERRL - ENT Exam ENT Exam: Normal Exam - Neck Exam Neck Exam: Normal Inspection - Respiratory Exam Respiratory Exam: Decreased Breath Sounds (at bases) - Cardiovascular Exam Cardiovascular Exam: REGULAR RHYTHM - GI/Abdominal Exam GI & Abdominal Exam: Soft, Normal Bowel Sounds - Extremities Exam Additional comments: RUE PICC line - Neurological Exam Neurological Exam: Alert, CN II-XII Intact, Oriented x3 Additional comments: No focal motor/sensory deficit. - Psychiatric Exam Psychiatric exam: Normal Affect - Skin Skin Exam: Warm Assessment and Plan (1) Pneumonia Status: Acute (2) COPD exacerbation Status: Acute (3) Respiratory failure with hypercapnia Status: Acute (4) Change in mental status Status: Resolved - Assessment and Plan (Free Text) Plan: Era MARKS by ID, continue DuoNeb, Mucinex, Mucomyst and rest of Tx., Hgb 11 after PRBC transfusion, Patient to be transferred today to [facility]
--- NOTE | 2018-02-13 14:09 | CP.PCM.PN ---
Subjective - Date & Time of Evaluation Date of Evaluation: 02/13/18 Time of Evaluation: 09:00 - Subjective Subjective: afeb alert nad Objective - Vital Signs/Intake and Output Vital Signs (last 24 hours): Temp Pulse Resp BP Pulse Ox 97.9 F 81 20 130/78 95 02/13/18 12:02 02/13/18 12:02 02/13/18 12:02 02/13/18 12:02 02/13/18 12:02 Intake and Output: 02/13/18 02/13/18 06:59 18:59 Intake Total 725 Balance 725 - Medications Medications: Current Medications Acetaminophen (Tylenol 325mg Tab) 650 mg PO Q6 PRN PRN Reason: Pain, Mild (1-3) Last Admin: 02/08/18 20:55 Dose: 650 mg Acetylcysteine (Mucomyst 10% 4ml) 2 ml IH RBID [facility] Last Admin: 02/13/18 07:20 Dose: 2 ml Albuterol/Ipratropium (Duoneb 3 Mg/0.5 Mg (3 Ml) Ud) 3 ml INH RQ4 [facility] Last Admin: 02/13/18 11:12 Dose: 3 ml Amlodipine Besylate (Norvasc) 10 mg PO DAILY [facility] Last Admin: 02/13/18 10:09 Dose: 10 mg Bisoprolol Fumarate (Zebeta) 10 mg PO DAILY [facility] Last Admin: 02/13/18 10:08 Dose: 10 mg Cholecalciferol (Vitamin D) 1,000 intlu PO DAILY [facility] Last Admin: 02/13/18 10:08 Dose: 1,000 intlu Clotrimazole (Lotrimin 1%) 1 applic TOP BID [facility] Last Admin: 02/13/18 10:11 Dose: 1 applic Dextrose (Dextrose 50% Inj) 0 ml IV STAT PRN; Protocol PRN Reason: Hypoglycemia Protocol Dextrose (Glutose 15) 0 gm PO ONCE PRN; Protocol PRN Reason: Hypoglycemia Protocol Epoetin Johnny (Procrit) 10,000 unit SC TTS [facility] Famotidine (Pepcid) 40 mg PO HS [facility] Last Admin: 02/12/18 22:59 Dose: 40 mg Ferrous Gluconate (Fergon) 324 mg PO DAILY [facility] Last Admin: 02/13/18 10:08 Dose: 324 mg Furosemide (Lasix) 40 mg PO DAILY [facility] Last Admin: 02/13/18 10:07 Dose: 40 mg Glipizide (Glucotrol) 10 mg PO DAILY [facility] Last Admin: 02/13/18 10:08 Dose: 10 mg Glucagon (Glucagen Diagnostic Kit) 0 mg IM STAT PRN; Protocol PRN Reason: Hypoglycemia Protocol Guaifenesin/Dextromethorphan (Mucinex-Dm 600-30 Mg) 1 tab PO BID [facility] Last Admin: 02/13/18 10:11 Dose: 1 tab Meropenem 500 mg/ Sodium (Chloride) 100 mls @ 100 mls/hr IVPB DAILY [facility]; Protocol Last Admin: 02/13/18 11:03 Dose: 100 mls/hr Insulin Human Lispro (Humalog) 0 units SC ACHS [facility]; Protocol Last Admin: 02/13/18 10:10 Dose: Not Given Isosorbide Mononitrate (Imdur Er) 30 mg PO DAILY [facility] Last Admin: 02/13/18 10:09 Dose: 30 mg Lidocaine (Lidoderm) 1 ea TD DAILY [facility] Last Admin: 02/13/18 10:09 Dose: 1 ea Mupirocin (Bactroban Ointment) 1 applic TOP BID [facility] Last Admin: 02/13/18 10:06 Dose: 1 applic Pravastatin Sodium (Pravachol) 40 mg PO HS [facility] Last Admin: 02/12/18 22:59 Dose: 40 mg Sitagliptin Phosphate (Januvia) 100 mg PO DAILY [facility] Last Admin: 02/13/18 10:08 Dose: 100 mg Sucralfate (Carafate Tab) 1 gm PO BIDAC [facility] Last Admin: 02/13/18 10:07 Dose: 1 gm - Labs Labs: 02/13/18 04:55 02/13/18 04:55 PT 10.9 Seconds (9.8-13.1) 02/02/18 12:32 INR 1.0 02/02/18 12:32 APTT 24.7 Seconds (25.6-37.1) L 02/02/18 12:32 - Constitutional Appears: Non-toxic - Head Exam Head Exam: NORMOCEPHALIC - Eye Exam Eye Exam: absent: Scleral icterus - ENT Exam ENT Exam: Mucous Membranes Dry - Neck Exam Neck Exam: absent: Lymphadenopathy - Respiratory Exam Respiratory Exam: Decreased Breath Sounds - GI/Abdominal Exam GI & Abdominal Exam: Distended, Soft Assessment and Plan (1) Pneumonia Status: Acute (2) COPD (chronic obstructive pulmonary disease) Status: Chronic - Assessment and Plan (Free Text) Assessment: ok to d/c antibiotics reculture PRN
--- NOTE | 2018-02-13 14:11 | CP.PCM.PN ---
Subjective - Date & Time of Evaluation Date of Evaluation: 02/13/18 Time of Evaluation: 14:09 - Subjective Subjective: Reason for cosultation: Persistent pleural effusions, l>R Requested by Dr. Austin. I have reviewed imaging studies and progress notes 78 yo F with PMH of multiple comorbidities presented with sob, cough, and CAMPBELL. Thoracentesis on 02/08 failed to yield satisfactory resolution of bilateral pleural effusions. I am inclined to conclude that the her issue now is parenchymal than pleural; therefore recommend antibiotics,incentive spirometer, and IR drainage as needed. Despite an aggressive nonsugical treatment, and the pleural effusion becomes a clinical issue, we will consider pleurodesis or pleurex cath placement. a/p: Persistent bilatateral pleural effusions L>R. Nonsurgical treatment. If clinical issue remains, will consider either pleurodesis or pleurex catheter. Objective - Vital Signs/Intake and Output Vital Signs (last 24 hours): Temp Pulse Resp BP Pulse Ox 97.9 F 81 20 130/78 95 02/13/18 12:02 02/13/18 12:02 02/13/18 12:02 02/13/18 12:02 02/13/18 12:02 Intake and Output: 02/13/18 02/13/18 06:59 18:59 Intake Total 725 Balance 725 - Medications Medications: Current Medications Acetaminophen (Tylenol 325mg Tab) 650 mg PO Q6 PRN PRN Reason: Pain, Mild (1-3) Last Admin: 02/08/18 20:55 Dose: 650 mg Acetylcysteine (Mucomyst 10% 4ml) 2 ml IH RBID [facility] Last Admin: 02/13/18 07:20 Dose: 2 ml Albuterol/Ipratropium (Duoneb 3 Mg/0.5 Mg (3 Ml) Ud) 3 ml INH RQ4 [facility] Last Admin: 02/13/18 11:12 Dose: 3 ml Amlodipine Besylate (Norvasc) 10 mg PO DAILY [facility] Last Admin: 02/13/18 10:09 Dose: 10 mg Bisoprolol Fumarate (Zebeta) 10 mg PO DAILY [facility] Last Admin: 02/13/18 10:08 Dose: 10 mg Cholecalciferol (Vitamin D) 1,000 intlu PO DAILY [facility] Last Admin: 02/13/18 10:08 Dose: 1,000 intlu Clotrimazole (Lotrimin 1%) 1 applic TOP BID [facility] Last Admin: 02/13/18 10:11 Dose: 1 applic Dextrose (Dextrose 50% Inj) 0 ml IV STAT PRN; Protocol PRN Reason: Hypoglycemia Protocol Dextrose (Glutose 15) 0 gm PO ONCE PRN; Protocol PRN Reason: Hypoglycemia Protocol Epoetin Johnny (Procrit) 10,000 unit SC TTS [facility] Famotidine (Pepcid) 40 mg PO HS [facility] Last Admin: 02/12/18 22:59 Dose: 40 mg Ferrous Gluconate (Fergon) 324 mg PO DAILY [facility] Last Admin: 02/13/18 10:08 Dose: 324 mg Furosemide (Lasix) 40 mg PO DAILY [facility] Last Admin: 02/13/18 10:07 Dose: 40 mg Glipizide (Glucotrol) 10 mg PO DAILY [facility] Last Admin: 02/13/18 10:08 Dose: 10 mg Glucagon (Glucagen Diagnostic Kit) 0 mg IM STAT PRN; Protocol PRN Reason: Hypoglycemia Protocol Guaifenesin/Dextromethorphan (Mucinex-Dm 600-30 Mg) 1 tab PO BID [facility] Last Admin: 02/13/18 10:11 Dose: 1 tab Meropenem 500 mg/ Sodium (Chloride) 100 mls @ 100 mls/hr IVPB DAILY [facility]; Federico col Last Admin: 02/13/18 11:03 Dose: 100 mls/hr Insulin Human Lispro (Humalog) 0 units SC ACHS [facility]; Protocol Last Admin: 02/13/18 10:10 Dose: Not Given Isosorbide Mononitrate (Imdur Er) 30 mg PO DAILY [facility] Last Admin: 02/13/18 10:09 Dose: 30 mg Lidocaine (Lidoderm) 1 ea TD DAILY [facility] Last Admin: 02/13/18 10:09 Dose: 1 ea Mupirocin (Bactroban Ointment) 1 applic TOP BID [facility] Last Admin: 02/13/18 10:06 Dose: 1 applic Pravastatin Sodium (Pravachol) 40 mg PO HS [facility] Last Admin: 02/12/18 22:59 Dose: 40 mg Sitagliptin Phosphate (Januvia) 100 mg PO DAILY [facility] Last Admin: 02/13/18 10:08 Dose: 100 mg Sucralfate (Carafate Tab) 1 gm PO BIDAC [facility] Last Admin: 02/13/18 10:07 Dose: 1 gm - Labs Labs: 02/13/18 04:55 02/13/18 04:55 PT 10.9 Seconds (9.8-13.1) 02/02/18 12:32 INR 1.0 02/02/18 12:32 APTT 24.7 Seconds (25.6-37.1) L 02/02/18 12:32
[2018-02-14] MEDS ORDERED: EPOETIN ALFA 10,000 UNIT/ML ML SC SCH (09:00)
== END 2018-02-13 15:00 | DRG 193 ==
LOC: H.ER 21:38 → H.ERHOLD 22:24 → H.TEL 01-20 01:36 → H.ICU/CCU 01-31 11:18 → H.TEL 02-04 18:24
PROVIDERS: ADMIT Internal Medicine; ATTEND Internal Medicine
PROC: 05HM33Z Insertion of Infusion Device into Right Internal Jugular Vein, Percutaneous Approach (ICD-10-PCS; 2018-01-25)
PROC: 5A1D70Z Performance of Urinary Filtration, Intermittent, Less than 6 Hours Per Day (ICD-10-PCS; principal; 2018-01-26)
PROC: 05PYX3Z Removal of Infusion Device from Upper Vein, External Approach (ICD-10-PCS; 2018-02-05)
PROC: 0W9B3ZZ Drainage of Left Pleural Cavity, Percutaneous Approach (ICD-10-PCS; 2018-02-08)
PROC: 30233N1 Transfusion of Nonautologous Red Blood Cells into Peripheral Vein, Percutaneous Approach (ICD-10-PCS; 2018-02-12)
DX: J15.7 Pneumonia due to Mycoplasma pneumoniae (principal); I50.23 Acute on chronic systolic (congestive) heart failure; G92 Toxic encephalopathy; J96.02 Acute respiratory failure with hypercapnia; J96.91 Respiratory failure, unspecified with hypoxia; J44.1 Chronic obstructive pulmonary disease with (acute) exacerbation; J45.901 Unspecified asthma with (acute) exacerbation; N17.9 Acute kidney failure, unspecified; E87.1 Hypo-osmolality and hyponatremia; I13.0 Hypertensive heart and chronic kidney disease with heart failure and stage 1 through stage 4 chronic kidney disease, or unspecified chronic kidney disease; E87.2 Acidosis; J98.11 Atelectasis; J91.8 Pleural effusion in other conditions classified elsewhere; J44.0 Chronic obstructive pulmonary disease with (acute) lower respiratory infection; E11.65 Type 2 diabetes mellitus with hyperglycemia; N18.3 Chronic kidney disease, stage 3 (moderate); D63.1 Anemia in chronic kidney disease; I25.10 Atherosclerotic heart disease of native coronary artery without angina pectoris; Z95.5 Presence of coronary angioplasty implant and graft; E78.5 Hyperlipidemia, unspecified; G89.29 Other chronic pain; K21.9 Gastro-esophageal reflux disease without esophagitis; E11.22 Type 2 diabetes mellitus with diabetic chronic kidney disease; K29.70 Gastritis, unspecified, without bleeding; E78.00 Pure hypercholesterolemia, unspecified; K80.20 Calculus of gallbladder without cholecystitis without obstruction; Z74.01 Bed confinement status; Z88.5 Allergy status to narcotic agent; I48.91 Unspecified atrial fibrillation; E66.3 Overweight; Z68.29 Body mass index [BMI] 29.0-29.9, adult; T40.2X5A Adverse effect of other opioids, initial encounter

== ENCOUNTER 2018-03-06 23:58 | Inpatient (IN) | payer MEDICARE, MEDICAID ==
[2018-03-06 23:58] VITALS: BMI 29.2
[2018-03-07] MEDS ORDERED: Albuterol-Ipratrop 3 mg / 0.5 (3 ml) UD INH STA (00:27)
--- NOTE | 2018-03-07 00:27 | ED PDOC ---
HPI: Altered Mental Status Time Seen by Provider: 03/07/18 00:12 Chief Complaint (Nursing): Altered Mental Status Chief Complaint (Provider): Altered Mental Status History Per: EMS, Other (long term report) History/Exam Limitations: Clinical Condition Additional Complaint(s): 78 y/o female with history of diabetes, COPD, HTN, anemia and CHF, presents to the ED due to AMS, desaturation, vomiting, and O2 in 80s on Room Air. Patient is unable to give history and all information is taken from EMS and longterm re port from [facility]. Patient was recently admitted in January and was discharged with diagnosis of pneumonia. PMD: Norman Carpenter Apprentice: Laine Past Medical History Reviewed: Historical Data, Nursing Documentation, Vital Signs Vital Signs: Last Vital Signs Temp 98.0 F 03/07/18 00:02 Pulse 91 H 03/07/18 00:02 Resp 18 03/07/18 00:02 BP 150/80 03/07/18 00:02 Pulse Ox 84 L 03/07/18 00:02 - Medical History PMH: Anemia, Anxiety, Arthritis, Atrial Fibrillation, Back Problems (had recent injury/fall and was hospitalized for back pain(no findings)), Bronchitis, CAD, Cardia Arrhythmia, CHF, COPD, Depression, Diabetes (type II), Gastritis, Gall Bladder Disease, Hepatitis (B), HTN, Hypercholesterolemia, Hyperlipidemia, Osteoporosis, Peripheral Edema, Pneumonia, Chronic Kidney Disease Denies: Asthma, HIV, End Stage Renal Disease - Surgical History Surgical History: Cholecystectomy, Coronary Stent, (x 2) - Family History Family History: States: Hypertension - Immunization History Hx Tetanus Toxoid Vaccination: No Hx Influenza Vaccination: Yes Hx Pneumococcal Vaccination: Yes - Home Medications Home Medications: Ambulatory Orders Medication Instructions Recorded Acetaminophen [Tylenol] 650 mg PO Q4 PRN 03/07/18 Acetylcysteine [Acetylcysteine 10% 4 ml INH BID 03/07/18 10 ml] Albuterol/Ipratropium [Duoneb 3 3 ml INH Q6H 03/07/18 mg/0.5 mg (3 ml) UD] Bisoprolol Fumarate 5 mg PO DAILY 03/07/18 Empagliflozin [Jardiance] 10 mg PO DAILY 03/07/18 Famotidine [Pepcid] 40 mg PO DAILY 03/07/18 Ferrous Gluconate 324 mg PO DAILY 03/07/18 Furosemide [Lasix] 40 mg PO DAILY 03/07/18 GlipiZIDE [Glucotrol] 10 mg PO DAILY 03/07/18 Guaifenesin/Dextromethorphan 1 tab PO Q12H 03/07/18 [Mucinex Dm ER 1,200-60 mg Tab] Lidocaine 5% [Lidoderm] 5 pt TP DAILY 03/07/18 Metoclopramide [Reglan] 5 mg PO TID PRN 03/07/18 Ondansetron HCl [Zofran] 4 mg PO Q8H PRN 03/07/18 Pravastatin Sodium [Pravachol] 40 mg PO DAILY 03/07/18 RX: Cholecalciferol [Vitamin D 1,000 units PO DAILY 03/07/18 1000 IU] RX: Isosorbide Mononitrate ER 30 mg PO DAILY 03/07/18 [Imdur ER] RX: Sucralfate [Carafate Tab] 1 gm PO BID 03/07/18 Trimethobenzamide [Tigan] 100 mg IM Q8H PRN 03/07/18 amLODIPine [Norvasc] 10 mg PO DAILY 03/07/18 - Allergies Allergies/Adverse Reactions: Allergies Allergy/AdvReac Type Severity Reaction Status Date / Time alprazolam [From Xanax] Allergy SWELLING Verified 03/07/18 00:03 hydromorphone HCl Allergy RASH Verified 03/07/18 00:03 [From Dilaudid] zolpidem tartrate Allergy RASH Verified 03/07/18 00:03 [From Ambien] Review of Systems Review Of Systems: ROS cannot be obtained secondary to pt's inabilty to answer questions. Physical Exam - Reviewed Nursing Documentation Reviewed: Yes Vital Signs Reviewed: Yes - Physical Exam Appears: Positive for: Non-toxic, No Acute Distress Head Exam: Positive for: ATRAUMATIC, NORMOCEPHALIC Skin: Positive for: Normal Color, Warm, Dry ENT: Positive for: Normal ENT Inspection Neck: Positive for: Normal, Painless ROM, Supple Cardiovascular/Chest: Positive for: Regular Rate, Rhythm. Negative for: Murmur Respiratory: Positive for: Respiratory Distress (mild), Other (Tachypnea). Negative for: Wheezing Gastrointestinal/Abdominal: Positive for: Normal Exam, Soft. Negative for: Tenderness Extremity: Positive for: Normal ROM. Negative for: Pedal Edema, Deformity Neurologic/Psych: Negative for: Alert (arousable to loud verbal stimulus), Oriented (obtunded) - Laboratory Results Result Diagrams: 03/07/18 00:45 03/07/18 00:45 - ECG O2 Sat by Pulse Oximetry: 84 (RA) Pulse Ox Interpretation: Abnormal - Critical Care Total Time (In Min): 30 Medical Decision Making Medical Decision Making: Time: 00:26 Initial Impression: Hypoxia, Vomiting, Respiratory Distress, AMS Differential includes COPD exacerbation, Pneumonia, CHF exacerbation Initial Plan: * ABG Shock * EKG * BNP * BMP * Troponin * ED Urine dip * CBC w/ diff * CXR * Duoneb * Solumedrol * Blood culture * High flow oxygen * * CXR shows right pleural effusion with CHF and possible infiltrate. Elevated troponin and bnp. * lasix IV * zosyn IV * levaquin IV * ASA * * 03:23 CT Head COMMENTS: There is normal configuration of sella turcica. There are no intra or extra- axial collections. There is no mass effect or midline shift. There is no evide nce of hematoma formation. No hydrocephalus is present. The ventricles are symmetrical. No abnormal calcifications are present. There is diffuse age-appropriate cerebellar and cerebral atrophy with proportionally dilated ventricles and cortical sulci. There are bilateral periventricular and subcortical white matter hypolucencies compatible with mild chronic microvascular disease. Otherwise, no significant focal abnormalities are seen either in the posterior fossa or supratentorial compartment. Chronic mucosal inflammatory changes of the left sphenoid sinus. IMPRESSION: 1. Age-appropriate cerebellar and cerebral atrophy. 2. Mild chronic microvascular disease. 3. No evidence of acute intracranial pathology. Thank you for your kind referral of this patient. Scribe Attestation: Documented by Thony Holbrook acting as a scribe for Wanda Martino MD. Provider Scribe Attestation: All medical record entries made by the Scribe were at my direction and person ally dictated by me. I have reviewed the chart and agree that the record accurately reflects my personal performance of the history, physical exam, medical decision making, and the department course for this patient. I have also personally directed, reviewed, and agree with the discharge instructions and disposition. Disposition - Clinical Impression Clinical Impression: CHF exacerbation, Pneumonia, Pleural effusion, COPD (chronic obstructive pulmonary disease) - Patient ED Disposition Is Patient to be Admitted: Yes Discussed With : Manpreet Austin Counseled Patient/Family Regarding: Studies Performed, Diagnosis - Disposition Disposition Time: 02:00 Condition: CRITICAL - Pt Status Changed To: Hospital Disposition Of: Inpatient - Admit Certification Admit to Inpatient:: After my assessment, the patient will require hospitalization for at least two midnights. This is because of the severity of symptoms shown, intensity of services needed, and/or the medical risk in this patient being treated as an outpatient. - POA Present On Arrival: None
[2018-03-07 00:37] LABS: ABG ALLEN TEST YES; ARTERIAL BLOOD GAS HCO3 23.9 mmol/L (21-28); ARTERIAL BLOOD GAS O2 SAT 96.7 % (95-98); ARTERIAL BLOOD GAS PCO2 55 mm/Hg (35-45); ARTERIAL BLOOD GAS PH 7.29 (7.35-7.45); ARTERIAL BLOOD GAS PO2 70 mm/Hg (80-100); ARTERIAL BLOOD GAS TCO2 28.1 mmol/L (22-28)
[2018-03-07] MEDS ORDERED: Povidone Iodine Oint 10% Foilpak UD ONE (00:56)
[2018-03-07 01:00] LABS: BASO % 0.5 % (0.0-2.0); EOS # 0.1 K/uL (0.0-0.7); EOS % 0.6 % (0.0-4.0); HEMOGLOBIN 10.7 g/dL (12.0-16.0); LYMPH # 0.1 K/uL (1.0-4.3); LYMPH % 1.5 % (20.0-40.0); MEAN CELL VOLUME 97.9 fl (81.0-99.0); MEAN CORPUSCULAR HEMOGLOBIN 29.7 pg (27.0-31.0); MEAN CORPUSCULAR HGB CONC 30.4 g/dL (33.0-37.0); MEAN PLATELET VOLUME 8.4 fl (7.2-11.7); MONO # 0.9 K/uL (0.0-0.8); MONO % 9.7 % (0.0-10.0); NEUT # 7.9 K/uL (1.8-7.0); NEUT % 87.7 % (50.0-75.0); NRBC % 0.1 % (0.0-0.0); PLATELET COUNT 233 K/uL (130-400); RBC 3.59 Mil/uL (3.80-5.20); RED CELL DISTRIBUTION WIDTH 19.6 % (11.5-14.5)
[2018-03-07 01:41] LABS: CALCIUM 8.8 mg/dL (8.4-10.2); TROPONIN I 0.188 ng/mL (0.00-0.120)
[2018-03-07] MEDS ORDERED: levoFLOXacin 750 mg in D5W 150 ML BAG IVPB STA (02:02)
[2018-03-07] MEDS ORDERED: Albuterol-Ipratrop 3 mg / 0.5 (3 ml) UD ONE (02:18)
[2018-03-07] MEDS ORDERED: levoFLOXacin 750 mg in D5W 750 MG/150 ML BAG IVPB ONE (02:18)
[2018-03-07] MEDS ORDERED: Piperacillin/Tazobact 3.375 gm Inj IVPB ONE (02:19)
[2018-03-07] MEDS ORDERED: Albuterol-Ipratrop 3 mg / 0.5 (3 ml) UD INH PRN (02:22)
[2018-03-07] MEDS: Piperacillin/Tazobact 3.375 GM in Sodium Chloride 0.9% 100 ML IVPB STA ×2 (02:29→02:45)
[2018-03-07] MEDS ORDERED: methylPREDNISolone 60 MG in Sodium Chloride 0.9% 50 ML IV SCH ×2 (02:30→04:30)
[2018-03-07 02:41] LABS: BANDS 3 % (0-2); LYMPHOCYTE 2 % (20-50); MONOCYTE 8 % (0-10); NEUTROPHIL 87 % (42-75); TOTAL CELLS COUNTED 100
--- NOTE | 2018-03-07 02:41 | CP.PCM.CON ---
History of Present Illness - History of Present Illness History of Present Illness: CC/reason for ICU: Respiratory distress 78 y/o female with history of diabetes, COPD, HTN, anemia and CHF, presents to the ED due to AMS, desaturation, vomiting, and O2 in 80s on Room Air. Patient is unable to give history and all information is taken from EMS and residential report from [facility]. Patient was recently admitted in January and was discharged with diagnosis of pneumonia. ROS: 14 systems reviewed, negative other than HPI MHx: A fib, CAD, CHF, ?COPD, CKD, DM2, HLD, HTN SHx: Cholecystectomy, coronary stents, c-sec Allergies: Xanax, dilaudid, ambien Family Hx: Reviewed, nothing other than HTN in family Social Hx: Lives with family?, no EtOH, no tobacco Past Patient History - Past Medical History & Family History Past Medical History?: Yes - Past Social History Smoking Status: Never Smoked - CARDIAC Hx Atrial Fibrillation: Yes Hx Cardia Arrhythmia: Yes Hx Congestive Heart Failure: Yes Hx Hypercholesterolemia: Yes Hx Hypertension: Yes Hx Peripheral Edema: Yes - PULMONARY Hx Asthma: No Hx Bronchitis: Yes Hx Chronic Obstructive Pulmonary Disease (COPD): Yes Hx Pneumonia: Yes - NEUROLOGICAL Hx Neurological Disorder: No - HEENT Hx HEENT Problems: Yes Hx Cataracts: Yes - RENAL Hx Chronic Kidney Disease: Yes - ENDOCRINE/METABOLIC Hx Endocrine Disorders: Yes Hx Diabetes Mellitus Type 2: Yes - HEMATOLOGICAL/ONCOLOGICAL Hx Anemia: Yes Hx Human Immunodeficiency Virus (HIV): No - INTEGUMENTARY Hx Dermatological Problems: No - MUSCULOSKELETAL/RHEUMATOLOGICAL Hx Arthritis: Yes Hx Osteoporosis: Yes - GASTROINTESTINAL Hx Gall Bladder Disease: Yes Hx Gastritis: Yes - GENITOURINARY/GYNECOLOGICAL Hx Genitourinary Disorders: No - PSYCHIATRIC Hx Anxiety: Yes Hx Depression: Yes - SURGICAL HISTORY Hx Cholecystectomy: Yes Hx Coronary Stent: Yes - ANESTHESIA Hx Anesthesia: Yes Hx Anesthesia Reactions: No Hx Malignant Hyperthermia: No Meds Allergies/Adverse Reactions: Allergies Allergy/AdvReac Type Severity Reaction Status Date / Time alprazolam [From Xanax] Allergy SWELLING Verified 03/07/18 00:03 hydromorphone HCl Allergy RASH Verified 03/07/18 00:03 [From Dilaudid] zolpidem tartrate Allergy RASH Verified 03/07/18 00:03 [From Ambien] - Medications Medications: Current Medications Albuterol/Ipratropium (Duoneb 3 Mg/0.5 Mg (3 Ml) Ud) 3 ml INH RQ6 PRN PRN Reason: Shortness of Breath Amlodipine Besylate (Norvasc) 10 mg PO DAILY [facility] Aspirin (Aspirin) 325 mg PO DAILY [facility] Bisoprolol Fumarate (Zebeta) 5 mg PO DAILY [facility] Famotidine (Pepcid) 40 mg PO HS [facility] Furosemide (Lasix) 40 mg IVP DAILY [facility] Piperacillin Sod/Tazobactam (Sod 3.375 gm/ Sodium Chloride) 100 mls @ 100 mls/hr IVPB STAT STA; Protocol Stop: 03/07/18 03:03 Last Admin: 03/07/18 02:29 Dose: 100 mls/hr Levofloxacin/Dextrose (Levaquin 750mg) 750 mg in 150 mls @ 100 mls/hr IVPB STAT STA Stop: 03/07/18 03:35 Piperacillin Sod/Tazobactam (Sod 3.375 gm/ Sodium Chloride) 100 mls @ 100 mls/hr IVPB Q6 [facility]; Protocol Levofloxacin/Dextrose (Levaquin 500mg) 500 mg in 100 mls @ 100 mls/hr IVPB Q48H [facility]; Protocol Insulin Human Lispro (Humalog) 0 units SC ACHS [facility]; Protocol Isosorbide Mononitrate (Imdur Er) 30 mg PO DAILY [facility] Pantoprazole Sodium (Protonix Ec Tab) 40 mg PO DAILY [facility] Pravastatin Sodium (Pravachol) 40 mg PO HS [facility] Physical Exam - Constitutional Appears: No Acute Distress Additional comments: chronically ill appearing - Head Exam Head Exam: ATRAUMATIC, NORMOCEPHALIC - Eye Exam Eye Exam: EOMI, PERRL - ENT Exam ENT Exam: Mucous Membranes Moist - Neck Exam Neck exam: Positive for: Full Rom - Respiratory Exam Respiratory Exam: Decreased Breath Sounds, Rales, Rhonchi Additional comments: R lung with significantly diminished breath sounds throughout, left with some rales - Cardiovascular Exam Cardiovascular Exam: REGULAR RHYTHM, +S1, +S2 - GI/Abdominal Exam GI & Abdominal Exam: Normal Bowel Sounds, Soft - Extremities Exam Extremities exam: Positive for: full ROM, normal inspection - Neurological Exam Neurological exam: Alert, CN II-XII Intact, Oriented x3 - Psychiatric Exam Psychiatric exam: Normal Affect, Normal Mood - Skin Skin Exam: Dry, Warm Results - Vital Signs Recent Vital Signs: Last Vital Signs Temp 98.0 F 03/07/18 00:02 Pulse 91 H 03/07/18 00:02 Resp 22 03/07/18 02:03 BP 150/80 03/07/18 00:02 Pulse Ox 84 L 03/07/18 00:32 - Labs Result Diagrams: 03/07/18 05:30 03/07/18 05:30 Labs: Laboratory Results - last 24 hr 03/07/18 03/07/18 03/07/18 00:27 00:31 00:45 WBC RBC Hgb Hct MCV MCH MCHC RDW Plt Count MPV Neut % (Auto) Lymph % (Auto) [place] % (Auto) Eos % (Auto) Baso % (Auto) Neut # (Auto) Lymph # (Auto) [place] # (Auto) Eos # (Auto) Baso # (Auto) pCO2 55 H pO2 70 L HCO3 23.9 ABG pH 7.29 L ABG Total CO2 28.1 H ABG O2 Saturation 96.7 ABG Base Excess -1.1 Rosales Test Yes ABG Potassium 4.3 A-a O2 Difference 574.0 Sodium 153.0 H 150 H Chloride 116.0 H 113 H Glucose 223 H Lactate 1.4 FiO2 100.0 Potassium 4.6 Carbon Dioxide 24 Anion Gap 18 BUN 31 H Creatinine 1.9 H Est GFR ( Amer) 31 Est GFR (Non-Af Amer) 26 POC Glucose (mg/dL) 221 H Random Glucose 216 H Calcium 8.8 Troponin I 0.1880 H* NT-Pro-B Natriuret Pep 54996 H Arterial Blood Potassium 4.3 03/07/18 00:45 WBC 9.0 D RBC 3.59 L Hgb 10.7 L Hct 35.1 MCV 97.9 D MCH 29.7 MCHC 30.4 L RDW 19.6 H Plt Count 233 MPV 8.4 Neut % (Auto) 87.7 H Lymph % (Auto) 1.5 L [place] % (Auto) 9.7 Eos % (Auto) 0.6 Baso % (Auto) 0.5 Neut # (Auto) 7.9 H Lymph # (Auto) 0.1 L [place] # (Auto) 0.9 H Eos # (Auto) 0.1 Baso # (Auto) 0.0 pCO2 pO2 HCO3 ABG pH ABG Total CO2 ABG O2 Saturation ABG Base Excess Rosales Test ABG Potassium A-a O2 Difference Sodium Chloride Glucose Lactate FiO2 Potassium Carbon Dioxide Anion Gap BUN Creatinine Est GFR ( Amer) Est GFR (Non-Af Amer) POC Glucose (mg/dL) Random Glucose Calcium Troponin I NT-Pro-B Natriuret Pep Arterial Blood Potassium - EKG Data EKG Interpreted by: Myself EKG shows normal: Sinus rhythm Rate: Normal - EKG Data EKG comments: NSR, PVCs, septal lead TW flattening, - Imaging and Cardiology Chest x-ray Status: Image reviewed by me (L lung field nearly joesph out; possible consolidation + vol o/l b/l) Assessment & Plan (1) Nosocomial pneumonia Assessment and Plan: Possible Nosocomial PNA given recent hospital stay; WC not markedly elevated how ever -Will continue LVQ and Zosyn IV started in ER, renally dosed; if condition worsens, then add Vancomycin IV -Duonebs -IV steroids for now given COPD Hx -Pulmonary consult in AM (Davie) Status: Acute (2) COPD exacerbation Assessment and Plan: As above Status: Acute Priority: High (3) Acute congestive heart failure Assessment and Plan: CHF component to respiratory difficulty likely; BNP is signfiicantly elevated -Trend troponins -- likely demand ischemia -Lasix 40 mg IV daily -Cardiology consult as above -Will get an echo as patient does not appear to have had one in the past year Status: Acute (4) Elevated troponin Assessment and Plan: Likely due to demand ischemia in setting of CHF exac and poor renal clearance -Serial troponins -AM EKG -Echo in AM -Patient on ASA, B-blockers, statin -If next troponin is significantly up, would consider heparin gtt -Cardiology consult as above Status: Chronic (5) DM2 (diabetes mellitus, type 2) Assessment and Plan: Ser gluc is somewhat elevated -DM2 diet -Accucheck with SSI -Can consider restarting PO medications in AM if patient is eating consistently Status: Acute (6) CKD (chronic kidney disease) Assessment and Plan: Cr does not appear much worse than baseline -Dose medications renally -See if improves with diuresis -If renal function worsening, would get renal consult (seen before on prior admission) Status: Acute (7) DVT prophylaxis Assessment and Plan: DVT PPx -- SQ heparin given poor renal function Status: Acute
[2018-03-07 02:43] LABS: HYPOCHROMIC SLIGHT; OVALOCYTES SLIGHT; PLATELET ESTIMATE NORMAL (NORMAL); POIKILOCYTOSIS SLIGHT
[2018-03-07 03:44] LABS: URINE BACTERIA RARE (<OCC); URINE BILIRUBIN NEGATIVE (NEGATIVE); URINE BLOOD SMALL (NEGATIVE); URINE CLARITY CLOUDY (Clear); URINE COLOR YELLOW (YELLOW); URINE GLUCOSE (UA) >=500 mg/dL (NEGATIVE); URINE LEUKOCYTE ESTERASE NEG Leu/uL (Negative); URINE PROTEIN 100 mg/dL (NEGATIVE); URINE UROBILINOGEN 0.2-1.0 mg/dL (0.2-1.0)
[2018-03-07] MEDS: Sucralfate 1 gm/10 ml Oral Susp UD PO SCH ×4 (05:30→20:44)
[2018-03-07 05:58] LABS: HEMOGLOBIN 11.3 g/dL (12.0-16.0); MEAN CELL VOLUME 97.4 fl (81.0-99.0); MEAN CORPUSCULAR HEMOGLOBIN 30.2 pg (27.0-31.0); RBC 3.74 Mil/uL (3.80-5.20); RED CELL DISTRIBUTION WIDTH 19.4 % (11.5-14.5); WHITE BLOOD COUNT 8.2 K/uL (4.8-10.8)
[2018-03-07] MEDS: Insulin Lispro (humaLOG) 100 Units/ml Inj SC SCH ×4 (06:32→21:12)
[2018-03-07 06:35] LABS: TROPONIN I 0.194 ng/mL (0.00-0.120)
--- NOTE | 2018-03-07 08:03 | CARD ---
APPROVED REPORT Date of service: 03/07/2018 EKG Measurement Heart [id number] <Conclusion> Normal sinus rhythm Possible Left atrial enlargement Low voltage QRS Borderline ECG
--- NOTE | 2018-03-07 08:05 | CARD ---
APPROVED REPORT Date of service: 03/07/2018 EKG Measurement Heart [id number] <Conclusion> Normal sinus rhythm Possible Left atrial enlargement Low voltage QRS Nonspecific ST and T wave abnormality Abnormal ECG
[2018-03-07] MEDS ORDERED: Pantoprazole 40 mg EC Tab PO SCH (09:00)
--- NOTE | 2018-03-07 09:06 | CT ---
Date of service: 03/07/2018 PROCEDURE: CT HEAD WITHOUT CONTRAST. HISTORY: AMS COMPARISON: 01/31/2018 TECHNIQUE: Axial computed tomography images were obtained through the head/brain without intravenous contrast. Radiation dose: Total exam DLP = 642.1 mGy-cm. This CT exam was performed using one or more of the following dose reduction techniques: Automated exposure control, adjustment of the mA and/or kV according to patient size, and/or use of iterative reconstruction technique. FINDINGS: HEMORRHAGE: No intracranial hemorrhage. BRAIN: No mass effect or edema. Mild diffuse age-appropriate atrophy. Mild focal right frontal encephalomalacia unchanged. Moderate chronic periventricular white matter ischemic change with patchy deep and subcortical white matter ischemic change. No evidence of acute infarct. VENTRICLES: Unremarkable. No hydrocephalus. CALVARIUM: Unremarkable. PARANASAL SINUSES: Chronic sphenoid sinusitis. MASTOID AIR CELLS: Minimal nonspecific right mastoid effusion, new since prior. OTHER FINDINGS: None. IMPRESSION: No intracranial mass, hemorrhage or evidence of acute infarct. Age-appropriate involutional change. Chronic sphenoid sinusitis. Minimal nonspecific right mastoid effusion. Old right frontal encephalomalacia common nonspecific. The preliminary findings for this examination were reported by [facility] at 3:23 a.m. on 03/07/2018. There is concurrence of this report with the preliminary findings.
--- NOTE | 2018-03-07 09:20 | RAD ---
Date of service: 03/07/2018 PROCEDURE: CHEST RADIOGRAPH, 1 VIEW HISTORY: dyspnea COMPARISON: 02/08/2018 FINDINGS: LUNGS: Extensive opacity of the left hemithorax has mostly resolved with some minimal patchy opacity in the mid and lower left lung. There is new extensive opacity throughout the right hemithorax with some residual aerated lung noted. This may be due to consolidation and/or pleural effusion. The right costophrenic angle is obscured. PLEURA: Possible right pleural effusion. No evidence of left pleural effusion. No pneumothorax. CARDIOVASCULAR: No aortic atherosclerotic calcification present. Normal heart size. Right PICC catheter. OSSEOUS STRUCTURES: No significant abnormalities. VISUALIZED UPPER ABDOMEN: Normal. OTHER FINDINGS: None. IMPRESSION: Extensive opacity of right hemithorax. Consolidation and/or pleural effusion. Incomplete resolution of previous extensive opacity of left rei thorax.
[2018-03-07] MEDS ORDERED: Influenza Vaccine 60 MCG/0.5 ML SYR (3 yr & up) IM ONE (09:36)
--- NOTE | 2018-03-07 10:37 | CP.CCUPN ---
CCU Subjective - Physician Review Subjective (Free Text): Alert and appropriately responsive, looks comfortable on HFNC, albeit on 100% oxygen, 96-100% SPo2, Other vitals and I/O's reviewed. No fever spikes SBPs 130s 160s. after fluid challenges, HR 88, breathing 23. ROS: No other pertinent negs or positives on 10+ system review obtainable. PMSFH: All other Nursing and physician documentation reviewed to date; no new pertinent info noted relevant to current medical problems. EXAM- HEENT: no icterus, no gaze preference, Pupils 3 mm and reactive NECK: No JVD visible, supple, carotids equal upstroke bilat/no bruit CHEST: decreased BS at the bases and especially R lung, no wheezes audible HEART: regular, distant, S1S2, no rubs ABD: soft, no focal tenderness, no tympany, no guarding, no organomegaly, BS hypoactive. EXT: + LE edema, no calf tenderness or palpable cords, distal pulses intact and symmetrical, no cyanosis; RUE PICC NEURO: withdraws legs to pain, moves upper arms and hands spontaneously. SKIN: no rashes, warm and dry LABS: WBC= 8.2 HGB= 11.3 PLTs= 229K 7.29/55/70 Lactate = 1.4 Admission Coags= pending Na= 151 K= 4.0 SI=664 HCO3= 26 BUN/Cr= 30/2.0 BS= 244 EKG: sinus 87/min, poor Zr progression anteriorly, low voltage (my interp). CXR: Near complete opacification R lung, with minimal aeration, c/w large effusion, small effusion L, RUE PICC Seen (my interp). IMPRESSION / MAJOR PROBLEMS NOW: 1. Acute hypoxemic and Hypercapneic Resp Failure 2 Recurrent Pneumonia, parapneumonic effusion 2. Small Acute / Subacute NSTEMI with decompensated L-CHF 3. Hypernatremia 4. 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 Oxygenation support with HFNC, monitor for need for MV if mental status worsens or PaO2 PCO2 levels deteriorate. 2. Empiric Abx coverage for HCAP, and atypical organisms. Consider diagnostic / therapeutic thoracentesis, need fluid analysis. H/o of yeast cultured from sputum during last hospitalization, but may have been a colonizer vs true infection, also had P.mirabilis UTI in Dec 2017. 3. Mod-High dose Lasix challenge; ECHO from May 2017 reviewed. 4. Follow serum Na levels, link after Lasix effects.
--- NOTE | 2018-03-07 11:55 | CP.PCM.HP ---
<Claudia Gentile - Last Filed: 03/07/18 15:57> History of Present Illness - History of Present Illness History of Present Illness: 78 y/o female with extensive medical history resident of [facility], recently discharged from [facility] 2 weeks ago after being treated for pneumonia/CHF/COPD/Pleural effusion ex, presented to hospital yesterday with altered mental status, dyspnea and O2 sat 84% on room air. Blood gas significant for Respiratory acidosis. ER documentation reviewed. Pt was placed on Non Invasive Respiratory support which improved oxygenations status. Labs notable for hypernatremia (150), Crea 2.0 (baseline), Troponemia, ProBNP 26k. EKG reviewed (non specific st changs ). Cxray was significant for R. hemothorax opacity with consolidation/possible infiltrate. Head CT- no evidence of acute infarct. Pt was treated with ASA 325, Lasix 40 IV, Solumedrol 125mg IV, Levoflo xacin and Zosyn and 2 bronchodilators treatments. Cardiology (Dr. Stout), Pulmonology (Dr. Jang) consulted. Pt remained on high flow nasal cannula overnight. Hx from daughter- has been vomiting x5 days and dyspnic at [facility]. ROS: 14 systems reviewed, negative other than HPI MHx: A fib, CAD, CHF, ?COPD, CKD, DM2, HLD, HTN SHx: Cholecystectomy, coronary stents, c-sec Allergies: Xanax, dilaudid, ambien Family Hx: Reviewed, nothing other than HTN in family Social Hx: Lives with family?, no EtOH, no tobacco POA: Brandee Gerardo (NOTE: Brother falsifies that he is POA but sister is the legal POA- awaiting proper documentation to confirm this) Present on Admission - Present on Admission Any Indicators Present on Admission: No Past Patient History - Past Medical History & Family History Past Medical History?: Yes - Past Social History Smoking Status: Never Smoked - CARDIAC Hx Atrial Fibrillation: Yes Hx Cardia Arrhythmia: Yes Hx Congestive Heart Failure: Yes Hx Hypercholesterolemia: Yes Hx Hypertension: Yes Hx Peripheral Edema: Yes - PULMONARY Hx Asthma: No Hx Bronchitis: Yes Hx Chronic Obstructive Pulmonary Disease (COPD): Yes Hx Pneumonia: Yes - NEUROLOGICAL Hx Neurological Disorder: No - HEENT Hx HEENT Problems: Yes Hx Cataracts: Yes - RENAL Hx Chronic Kidney Disease: Yes - ENDOCRINE/METABOLIC Hx Endocrine Disorders: Yes Hx Diabetes Mellitus Type 2: Yes - HEMATOLOGICAL/ONCOLOGICAL Hx Anemia: Yes Hx Human Immunodeficiency Virus (HIV): No - INTEGUMENTARY Hx Dermatological Problems: No - MUSCULOSKELETAL/RHEUMATOLOGICAL Hx Arthritis: Yes Hx Osteoporosis: Yes - GASTROINTESTINAL Hx Gall Bladder Disease: Yes Hx Gastritis: Yes - GENITOURINARY/GYNECOLOGICAL Hx Genitourinary Disorders: No - PSYCHIATRIC Hx Anxiety: Yes Hx Depression: Yes - SURGICAL HISTORY Hx Cholecystectomy: Yes Hx Coronary Stent: Yes - ANESTHESIA Hx Anesthesia: Yes Hx Anesthesia Reactions: No Hx Malignant Hyperthermia: No Meds Allergies/Adverse Reactions: Allergies Allergy/AdvReac Type Severity Reaction Status Date / Time alprazolam [From Xanax] Allergy SWELLING Verified 03/07/18 00:03 hydromorphone HCl Allergy RASH Verified 03/07/18 00:03 [From Dilaudid] zolpidem tartrate Allergy RASH Verified 03/07/18 00:03 [From Ambien] Physical Exam - Constitutional Appears: No Acute Distress, Cachectic - Head Exam Head Exam: NORMAL INSPECTION - Eye Exam Eye Exam: Normal appearance - ENT Exam ENT Exam: Mucous Membranes Moist - Respiratory Exam Respiratory Exam: Decreased Breath Sounds. absent: Accessory Muscle Use, Wheezes - Cardiovascular Exam Cardiovascular Exam: REGULAR RHYTHM, +S1, +S2, Systolic Murmur. absent: JVD - GI/Abdominal Exam GI & Abdominal Exam: Normal Bowel Sounds - Extremities Exam Extremities exam: Positive for: normal capillary refill, pedal pulses present. Negative for: pedal edema - Neurological Exam Neurological exam: Alert - Psychiatric Exam Psychiatric exam: Anxious - Skin Skin Exam: Normal Color Results - Vital Signs Recent Vital Signs: Last Vital Signs Temp 98.5 F 03/07/18 11:37 Pulse 91 H 03/07/18 11:37 Resp 15 03/07/18 11:37 BP 162/80 H 03/07/18 11:37 Pulse Ox 96 03/07/18 11:37 - Labs Result Diagrams: 03/07/18 05:30 03/07/18 05:30 Labs: Laboratory Results - last 24 hr 03/07/18 03/07/18 03/07/18 00:27 00:31 00:45 WBC RBC Hgb Hct MCV MCH MCHC RDW Plt Count MPV Neut % (Auto) Lymph % (Auto) [place] % (Auto) Eos % (Auto) Baso % (Auto) Neut # (Auto) Lymph # (Auto) [place] # (Auto) Eos # (Auto) Baso # (Auto) Neutrophils % (Manual) Band Neutrophils % Lymphocytes % (Manual) Monocytes % (Manual) Platelet Estimate Hypochromasia (manual) Poikilocytosis (manual Ovalocytes pCO2 55 H pO2 70 L HCO3 23.9 ABG pH 7.29 L ABG Total CO2 28.1 H ABG O2 Saturation 96.7 ABG Base Excess -1.1 [place] Test Yes ABG Potassium 4.3 A-a O2 Difference 574.0 Sodium 153.0 H 150 H Chloride 116.0 H 113 H Glucose 223 H Lactate 1.4 FiO2 100.0 Potassium 4.6 Carbon Dioxide 24 Anion Gap 18 BUN 31 H Creatinine 1.9 H Est GFR ( Amer) 31 Est GFR (Non-Af Amer) 26 POC Glucose (mg/dL) 221 H Random Glucose 216 H Calcium 8.8 Troponin I 0.1880 H* NT-Pro-B Natriuret Pep 47391 H Arterial Blood Potassium 4.3 Urine Color Urine Clarity Urine pH Ur Specific [place] Urine Protein Urine Glucose (UA) Urine Ketones Urine Blood Urine Nitrate Urine Bilirubin Urine Urobilinogen Ur Leukocyte Esterase Urine RBC (Auto) Urine Microscopic WBC Urine Bacteria Hyaline Casts Urine Yeast (Budding) 03/07/18 03/07/18 03/07/18 00:45 03:37 04:41 WBC 9.0 D RBC 3.59 L Hgb 10.7 L Hct 35.1 MCV 97.9 D MCH 29.7 MCHC 30.4 L RDW 19.6 H Plt Count 233 MPV 8.4 Neut % (Auto) 87.7 H Lymph % (Auto) 1.5 L [place] % (Auto) 9.7 Eos % (Auto) 0.6 Baso % (Auto) 0.5 Neut # (Auto) 7.9 H Lymph # (Auto) 0.1 L [place] # (Auto) 0.9 H Eos # (Auto) 0.1 Baso # (Auto) 0.0 Neutrophils % (Manual) 87 H Band Neutrophils % 3 H Lymphocytes % (Manual) 2 L Monocytes % (Manual) 8 Platelet Estimate Normal Hypochromasia (manual) Slight Poikilocytosis (manual Slight Ovalocytes Slight pCO2 pO2 HCO3 ABG pH ABG Total CO2 ABG O2 Saturation ABG Base Excess [place] Test ABG Potassium A-a O2 Difference Sodium Chloride Glucose Lactate FiO2 Potassium Carbon Dioxide Anion Gap BUN Creatinine Est GFR ( Amer) Est GFR (Non-Af Amer) POC Glucose (mg/dL) 237 H Random Glucose Calcium Troponin I NT-Pro-B Natriuret Pep Arterial Blood Potassium Urine Color Yellow Urine Clarity Cloudy Urine pH 5.0 Ur Specific [place] 1.013 Urine Protein 100 Urine Glucose (UA) >=500 Urine Ketones Trace Urine Blood Small Urine Nitrate Negative Urine Bilirubin Negative Urine Urobilinogen 0.2-1.0 Ur Leukocyte Esterase Neg Urine RBC (Auto) 4 H Urine Microscopic WBC 5 Urine Bacteria Rare Hyaline Casts 3-5 H Urine Yeast (Budding) Many H 03/07/18 03/07/18 05:30 05:30 WBC 8.2 RBC 3.74 L Hgb 11.3 L Hct 36.4 MCV 97.4 MCH 30.2 MCHC 31.0 L RDW 19.4 H Plt Count 229 MPV Neut % (Auto) Lymph % (Auto) [place] % (Auto) Eos % (Auto) Baso % (Auto) Neut # (Auto) Lymph # (Auto) [place] # (Auto) Eos # (Auto) Baso # (Auto) Neutrophils % (Manual) Band Neutrophils % Lymphocytes % (Manual) Monocytes % (Manual) Platelet Estimate Hypochromasia (manual) Poikilocytosis (manual Ovalocytes pCO2 pO2 HCO3 ABG pH ABG Total CO2 ABG O2 Saturation ABG Base Excess [place] Test ABG Potassium A-a O2 Difference Sodium 151 H Chloride 112 H Glucose Lactate FiO2 Potassium 4.0 Carbon Dioxide 26 Anion Gap 17 BUN 30 H Creatinine 2.0 H Est GFR ( Amer) 29 Est GFR (Non-Af Amer) 24 POC Glucose (mg/dL) Random Glucose 244 H Calcium 9.0 Troponin I 0.1940 H* NT-Pro-B Natriuret Pep Arterial Blood Potassium Urine Color Urine Clarity Urine pH Ur Specific [place] Urine Protein Urine Glucose (UA) Urine Ketones Urine Blood Urine Nitrate Urine Bilirubin Urine Urobilinogen Ur Leukocyte Esterase Urine RBC (Auto) Urine Microscopic WBC Urine Bacteria Hyaline Casts Urine Yeast (Budding) Assessment & Plan - Assessment and Plan (Free Text) Assessment: 78 y/o female with extensive medical history resident of [facility], recently discharged from [facility] 2 weeks ago after being treated for pneumonia/CHF/COPD/Pleural effusion ex, presented to hospital yesterday altered and dyspnic wit O2 sat 84 on room air. Daughter states patient was vomiting for the past 5 days. ER documentation reviewed. Pt was placed on Non Invasive Respiratory support which improved oxygenations status. Blood gas significant for Respiratory acidosis. Labs notable for hypernatremia (150), Hyperchrolimia, Crea 2.0 (baseline), Troponemia, ProBNP 26k. EKG reviewed (? ). Cxray was significant for R. hemothorax opacity with consolidation/possible infiltrate. Head CT- no evidence of acute infarct. Pt was treated with ASA 325, Lasix 40 IV, Solumedrol 125mg IV, Levofloxacin and Zosyn and 2 bronchodilators treatments. Cardiology (Dr. Stout), Pulmonology (Dr. Jang) consulted. Pt remained on high flow nasal cannula overnight. Hypercapnic and Hypoxic Respiratory Failure -Multifactorial; Likely secondary to new pleural effusion noted on Cxray vs COPD exas vs CHF exas vs Pneumonia -CO2 55 on ABG, O2Sat 84 on Rm air on presentation -Maintaining good O2 sat on high flow O2 overnight (96) -Continue to monitor respiratory status and mental status -Pulmonology and Cardiology consulted COPD -Bronchidilators -IV steroids CHF -Diuretics, Lasiv 40 IV daily, monitor kidney function -ECHO (05/2017): EF 45-50%, RVSP 57, moderate pulmonary HTN, moderate aortic stenosis Pleural Effusion -Last admission had L. Pleural effusion and thoracentesis on 02/08 -ow Pleural effusion is on R. side. May need Thoracentesis AMS -Resolved this am -Likely hypercapnic/hypoxic vs metabolic encephalopathy -Head CT no acute changes -Hx of dementia? -Neuro checks Troponemia -EKG reviewed, NSTEMI? vs Demand Ischemia vs CKD tropinemia -Cardiology -ASA, Statin, Bblocker Hypernatremia -Dehydration -May improve with Diuretics HCAP -Empiric ABX coverage; Zosyn, Levoflocacin. MRSA coverage? -Patient likely aspirated Vomiting -liquid diet -f/U amylase/lipase DM -C/W home meds DVT ppx Heparin Discussed Case with Dr. Austin <Manpreet Austin - Last Filed: 03/10/18 17:37> Results - Vital Signs Recent Vital Signs: Last Vital Signs Temp 96.5 F L 03/09/18 20:00 Pulse 99 H 03/09/18 20:56 Resp 24 03/09/18 20:00 BP 128/75 03/09/18 20:56 Pulse Ox 98 03/09/18 20:00 - Labs Result Diagrams: 03/09/18 05:30 03/09/18 19:45 Labs: Laboratory Results - last 24 hr 03/09/18 19:45 Sodium 149 H Potassium 3.2 L Chloride 107 Carbon Dioxide 35 H Anion Gap 10 BUN 39 H Creatinine 2.2 H Est GFR ( Amer) 26 Est GFR (Non-Af Amer) 22 Random Glucose 108 H Calcium 7.7 L Assessment & Plan - Assessment and Plan (Free Text) Assessment: Patient was personally seen and examined by me in rounds with residents. Available labs and diagnostic data reviewed. Case, Patient's condition and management plan discussed with residents in rounds. Agree with resident's progress note. Plan: As ordered.
--- NOTE | 2018-03-07 12:39 | CP.PCM.CON ---
History of Present Illness - History of Present Illness History of Present Illness: I was asked to evalaute patient by Dr Austin. Jane was seen 03/07/18 1200 Patient is a 78 year old female with , mild LV dsyfunction CAD who presents with nausea and vomiting. The patient has had multiple previous admissions for pneumonai and concomitnat heart failure. She cannot keep PO intake and has vomiting. CXR suggested pulmonary vascular congestion. The patient was brought to [facility] for further management Review of Systems - Constitutional Constitutional: absent: As Per HPI, Anorexia, Chills, Daytime Sleepiness, Excessive Sweating, Fatigue, Fever, Frequent Falls, Headache, Increased Appetite, Lethargy, Malaise, Night Sweats, Snoring, Sleep Apnea, Weight Gain, Weight Loss, Weakness, Other - EENT Eyes: absent: As Per HPI, Blind Spots, Blurred Vision, Change in Vision, Decreased Night Vision, Diplopia, Discharge, Dry Eye, Exophthalmos, Floaters, Irritation, Itchy Eyes, Loss of Peripheral Vision, Pain, Photophobia, Requires Corrective Lenses, Sees Flashes, Spots in Vision, Tunnel Vision, Other Visual Disturbances, Loss of Vision, Other Ears: absent: As Per HPI, Decreased Hearing, Ear Discharge, Ear Pain, Tinnitus, Abnormal Hearing, Disequilibrium, Dizziness, Other Nose/Mouth/Throat: absent: As Per HPI, Epistaxis, Nasal Congestion, Nasal Discharge, Nasal Obstruction, Nasal Trauma, Nose Pain, Post Nasal Drip, Sinus Pain, Sinus Pressure, Bleeding Gums, Change in Voice, Dental Pain, Dry Mouth, Dysphagia, Halitosis, Hoarsness, Lip Swelling, Mouth Lesions, Mouth Pain, Odynophagia, Sore Throat, Throat Swelling, Tongue Swelling, Facial Pain, Neck Pain, Neck Mass, Other - Breasts Breasts: absent: As Per HPI, Change in Shape, Mass, Pain, Nipple Discharge, Nipple Inversion, Skin Changes, Swelling, Other - Cardiovascular Cardiovascular: Dyspnea - Respiratory Respiratory: Cough, Dyspnea, Dyspnea on Exertion, Chest Congestion, Excessive Mucous Production - Gastrointestinal Gastrointestinal: Nausea, Vomiting - Genitourinary Genitourinary: absent: As Per HPI, Change in Urinary Stream, Difficulty Urinating, Dysuria, Flank Pain, Hematuria, Pyuria, Nocturia, Urinary Incontinence, Urinary Frequency, Urinary Hesitance, Urinary Urgency, Voiding Freq/Small Amts, Freq UTI, Hx Renal/Bladder Calculi, Hx /Renal Surgery, Bladder Distension, Other - Musculoskeletal Musculoskeletal: absent: As Per HPI, Abnormal Gait, Arthralgias, Atrophy, Back Pain, Deformity, Joint Swelling, Limited Range of Motion, Loss of Height, Muscle Cramps, Muscle Weakness, Myalgias, Neck Pain, Numbness, Radiating Pain into Limb, Stiffness, Tingling, Other - Integumentary Integumentary: absent: As Per HPI, Acne, Alopecia, Bleeding Lesions, Change in Hair, Change in Nails, Change in Pigmentation, Changing Lesions, Dry Skin, Erythema, Furuncle, Hirsutism, Lesions, New Lesions, Non-Healing Lesions, Photos ensitivity, Pruritus, Rash, Skin Pain, Skin Ulcer, Sores, Striae, Swelling, Unusual Bruising, Wounds, Jaundice, Other - Neurological Neurological: absent: As Per HPI, Abnormal Gait, Abnormal Hearing, Abnormal Movements, Abnormal Speech, Behavioral Changes, Burning Sensations, Confusion, Convulsions, Disequilibrium, Dizziness, Numbness, Focal Weakness, Frequent Falls, Headaches, Lack of Coordination, Loss of Vision, Memory Loss, Paresthesias, Radicular Pain, Restless Legs, Sensory Deficit, Syncope, Tingling, Tremor, Vertigo, Weakness, Other Visual Disturbances, Other - Psychiatric Psychiatric: absent: As Per HPI, Abnormal Sleep Pattern, Anhedonia, Anxiety, Auditory Hallucinations, Behavioral Changes, Change in Appetite, Change in Libido, Confusion, Depression, Difficulty Concentrating, Hallucinations, Homicidal Ideation, Hopelessness, Irritability, Memory Loss, Mood Swings, Panic Attacks, Paranoia, Suicidal Ideation, Visual Hallucinations, Tactile Hallucinations, Other - Endocrine Endocrine: absent: As Per HPI, Change in Body Appearance, Change in Libido, Cold Intolorance, Deepening of Voice, Excessive Sweating, Fatigue, Flushing, Heat Intolorance, Increase in Ring/Shoe/Hat Size, Palpitations, Polydipsia, Polyphagia, Polyuria, Other - Hematologic/Lymphatic Hematologic: absent: As Per HPI, Easy Bleeding, Easy Bruising, Lymphadenopathy, Other Past Patient History - Past Medical History & Family History Past Medical History?: Yes - Past Social History Smoking Status: Never Smoked - CARDIAC Hx Atrial Fibrillation: Yes Hx Cardia Arrhythmia: Yes Hx Congestive Heart Failure: Yes Hx Hypercholesterolemia: Yes Hx Hypertension: Yes Hx Peripheral Edema: Yes - PULMONARY Hx Asthma: No Hx Bronchitis: Yes Hx Chronic Obstructive Pulmonary Disease (COPD): Yes Hx Pneumonia: Yes - NEUROLOGICAL Hx Neurological Disorder: No - HEENT Hx HEENT Problems: Yes Hx Cataracts: Yes - RENAL Hx Chronic Kidney Disease: Yes - ENDOCRINE/METABOLIC Hx Endocrine Disorders: Yes Hx Diabetes Mellitus Type 2: Yes - HEMATOLOGICAL/ONCOLOGICAL Hx Anemia: Yes Hx Human Immunodeficiency Virus (HIV): No - INTEGUMENTARY Hx Dermatological Problems: No - MUSCULOSKELETAL/RHEUMATOLOGICAL Hx Arthritis: Yes Hx Osteoporosis: Yes - GASTROINTESTINAL Hx Gall Bladder Disease: Yes Hx Gastritis: Yes - GENITOURINARY/GYNECOLOGICAL Hx Genitourinary Disorders: No - PSYCHIATRIC Hx Anxiety: Yes Hx Depression: Yes - SURGICAL HISTORY Hx Cholecystectomy: Yes Hx Coronary Stent: Yes - ANESTHESIA Hx Anesthesia: Yes Hx Anesthesia Reactions: No Hx Malignant Hyperthermia: No Meds Allergies/Adverse Reactions: Allergies Allergy/AdvReac Type Severity Reaction Status Date / Time alprazolam [From Xanax] Allergy SWELLING Verified 03/07/18 00:03 hydromorphone HCl Allergy RASH Verified 03/07/18 00:03 [From Dilaudid] zolpidem tartrate Allergy RASH Verified 03/07/18 00:03 [From Ambien] - Medications Medications: Current Medications Acetaminophen (Tylenol 325mg Tab) 650 mg PO Q6H PRN PRN Reason: Pain, Mild (1-3) Acetaminophen (Tylenol 325mg Tab) 650 mg PO Q6H PRN PRN Reason: Fever >100.4 F Albuterol/Ipratropium (Duoneb 3 Mg/0.5 Mg (3 Ml) Ud) 3 ml INH RQ6 PRN PRN Reason: Shortness of Breath Amlodipine Besylate (Norvasc) 10 mg PO DAILY [facility] Last Admin: 03/07/18 11:49 Dose: 10 mg Aspirin (Aspirin) 325 mg PO DAILY [facility] Last Admin: 03/07/18 11:45 Dose: 325 mg Bisoprolol Fumarate (Zebeta) 5 mg PO DAILY [facility] Last Admin: 03/07/18 11:50 Dose: 5 mg Famotidine (Pepcid) 40 mg PO HS [facility] Furosemide (Lasix) 40 mg IVP DAILY [facility] Last Admin: 03/07/18 09:46 Dose: 40 mg Heparin Sodium (Porcine) (Heparin) 5,000 units SC Q8 [facility]; Protocol Last Admin: 03/07/18 09:38 Dose: 5,000 units Piperacillin Sod/Tazobactam (Sod 2.25 gm/ Sodium Chloride) 100 mls @ 100 mls/hr IVPB Q6 [facility]; Protocol Last Admin: 03/07/18 09:40 Dose: 100 mls/hr Levofloxacin/Dextrose (Levaquin 500mg) 500 mg in 100 mls @ 100 mls/hr IVPB Q48H [facility]; Protocol Insulin Human Lispro (Humalog) 0 units SC ACHS [facility]; Protocol Last Admin: 03/07/18 11:47 Dose: 1 u Isosorbide Mononitrate (Imdur Er) 30 mg PO DAILY [facility] Last Admin: 03/07/18 11:48 Dose: 30 mg Methylprednisolone (Solu-Medrol) 60 mg IV Q8H [facility] Last Admin: 03/07/18 11:59 Dose: 60 mg Ondansetron HCl (Zofran Inj) 4 mg IVP Q6 PRN PRN Reason: Nausea/Vomiting Last Admin: 03/07/18 12:02 Dose: 4 mg Pantoprazole Sodium (Protonix Ec Tab) 40 mg PO DAILY [facility] Last Admin: 03/07/18 09:40 Dose: 40 mg Pravastatin Sodium (Pravachol) 40 mg PO HS [facility] Sucralfate (Carafate Oral Susp) 1 gm PO Q6H [facility] Last Admin: 03/07/18 09:38 Dose: 1 gm Physical Exam - Constitutional Appears: Chronically Ill - Head Exam Head Exam: NORMAL INSPECTION - Eye Exam Eye Exam: Normal appearance - ENT Exam ENT Exam: Mucous Membranes Moist - Neck Exam Neck exam: Positive for: Full Rom - Respiratory Exam Respiratory Exam: Decreased Breath Sounds - Cardiovascular Exam Cardiovascular Exam: REGULAR RHYTHM, Systolic Murmur - GI/Abdominal Exam GI & Abdominal Exam: Normal Bowel Sounds - Rectal Exam Rectal Exam: Deferred - Extremities Exam Extremities exam: Positive for: full ROM, normal inspection. Negative for: pedal edema - Back Exam Back exam: NORMAL INSPECTION - Neurological Exam Neurological exam: Alert, Oriented x3 - Psychiatric Exam Psychiatric exam: Normal Affect - Skin Skin Exam: Normal Color Results - Vital Signs Recent Vital Signs: Last Vital Signs Temp 98.5 F 03/07/18 11:37 Pulse 90 03/07/18 11:49 Resp 15 12/06/18 11:37 BP 162/80 H 12/06/18 11:49 Pulse Ox 96 03/07/18 11:37 - Labs Result Diagrams: 03/07/18 05:30 03/07/18 05:30 Labs: Laboratory Results - last 24 hr 03/07/18 03/07/18 03/07/18 00:27 00:31 00:45 WBC RBC Hgb Hct MCV MCH MCHC RDW Plt Count MPV Neut % (Auto) Lymph % (Auto) [place] % (Auto) Eos % (Auto) Baso % (Auto) Neut # (Auto) Lymph # (Auto) [place] # (Auto) Eos # (Auto) Baso # (Auto) Neutrophils % (Manual) Band Neutrophils % Lymphocytes % (Manual) Monocytes % (Manual) Platelet Estimate Hypochromasia (manual) Poikilocytosis (manual Ovalocytes pCO2 55 H pO2 70 L HCO3 23.9 ABG pH 7.29 L ABG Total CO2 28.1 H ABG O2 Saturation 96.7 ABG Base Excess -1.1 [place] Test Yes ABG Potassium 4.3 A-a O2 Difference 574.0 Sodium 153.0 H 150 H Chloride 116.0 H 113 H Glucose 223 H Lactate 1.4 FiO2 100.0 Potassium 4.6 Carbon Dioxide 24 Anion Gap 18 BUN 31 H Creatinine 1.9 H Est GFR ( Amer) 31 Est GFR (Non-Af Amer) 26 POC Glucose (mg/dL) 221 H Random Glucose 216 H Calcium 8.8 Troponin I 0.1880 H* NT-Pro-B Natriuret Pep 22121 H Arterial Blood Potassium 4.3 Urine Color Urine Clarity Urine pH Ur Specific [place] Urine Protein Urine Glucose (UA) Urine Ketones Urine Blood Urine Nitrate Urine Bilirubin Urine Urobilinogen Ur Leukocyte Esterase Urine RBC (Auto) Urine Microscopic WBC Urine Bacteria Hyaline Casts Urine Yeast (Budding) 03/07/18 03/07/18 03/07/18 00:45 03:37 04:41 WBC 9.0 D RBC 3.59 L Hgb 10.7 L Hct 35.1 MCV 97.9 D MCH 29.7 MCHC 30.4 L RDW 19.6 H Plt Count 233 MPV 8.4 Neut % (Auto) 87.7 H Lymph % (Auto) 1.5 L [place] % (Auto) 9.7 Eos % (Auto) 0.6 Baso % (Auto) 0.5 Neut # (Auto) 7.9 H Lymph # (Auto) 0.1 L [place] # (Auto) 0.9 H Eos # (Auto) 0.1 Baso # (Auto) 0.0 Neutrophils % (Manual) 87 H Band Neutrophils % 3 H Lymphocytes % (Manual) 2 L Monocytes % (Manual) 8 Platelet Estimate Normal Hypochromasia (manual) Slight Poikilocytosis (manual Slight Ovalocytes Slight pCO2 pO2 HCO3 ABG pH ABG Total CO2 ABG O2 Saturation ABG Base Excess [place] Test ABG Potassium A-a O2 Difference Sodium Chloride Glucose Lactate FiO2 Potassium Carbon Dioxide Anion Gap BUN Creatinine Est GFR ( Amer) Est GFR (Non-Af Amer) POC Glucose (mg/dL) 237 H Random Glucose Calcium Troponin I NT-Pro-B Natriuret Pep Arterial Blood Potassium Urine Color Yellow Urine Clarity Cloudy Urine pH 5.0 Ur Specific [place] 1.013 Urine Protein 100 Urine Glucose (UA) >=500 Urine Ketones Trace Urine Blood Small Urine Nitrate Negative Urine Bilirubin Negative Urine Urobilinogen 0.2-1.0 Ur Leukocyte Esterase Neg Urine RBC (Auto) 4 H Urine Microscopic WBC 5 Urine Bacteria Rare Hyaline Casts 3-5 H Urine Yeast (Budding) Many H 03/07/18 03/07/18 05:30 05:30 WBC 8.2 RBC 3.74 L Hgb 11.3 L Hct 36.4 MCV 97.4 MCH 30.2 MCHC 31.0 L RDW 19.4 H Plt Count 229 MPV Neut % (Auto) Lymph % (Auto) [place] % (Auto) Eos % (Auto) Baso % (Auto) Neut # (Auto) Lymph # (Auto) [place] # (Auto) Eos # (Auto) Baso # (Auto) Neutrophils % (Manual) Band Neutrophils % Lymphocytes % (Manual) Monocytes % (Manual) Platelet Estimate Hypochromasia (manual) Poikilocytosis (manual Ovalocytes pCO2 pO2 HCO3 ABG pH ABG Total CO2 ABG O2 Saturation ABG Base Excess [place] Test ABG Potassium A-a O2 Difference Sodium 151 H Chloride 112 H Glucose Lactate FiO2 Potassium 4.0 Carbon Dioxide 26 Anion Gap 17 BUN 30 H Creatinine 2.0 H Est GFR ( Amer) 29 Est GFR (Non-Af Amer) 24 POC Glucose (mg/dL) Random Glucose 244 H Calcium 9.0 Troponin I 0.1940 H* NT-Pro-B Natriuret Pep Arterial Blood Potassium Urine Color Urine Clarity Urine pH Ur Specific [place] Urine Protein Urine Glucose (UA) Urine Ketones Urine Blood Urine Nitrate Urine Bilirubin Urine Urobilinogen Ur Leukocyte Esterase Urine RBC (Auto) Urine Microscopic WBC Urine Bacteria Hyaline Casts Urine Yeast (Budding) - EKG Data EKG Interpreted by: Myself Assessment & Plan - Assessment and Plan (Free Text) Assessment: Aortic stenosis. Moderate from last echocardiogram. will avoid hypotension. will need imrpoved blood pressure control. Consider change to Coreg. would avoid afterload reduction HTN as above Elevated troponin does not appear to be due to CAD but more so acute on chronic diastolic dysfunction. medical therapy
--- NOTE | 2018-03-07 19:06 | CON ---
DATE: 03/07/2018 HISTORY OF PRESENT ILLNESS: Ms. Najera is a 78-year-old female who is well known to me from prior admissions. She was referred for pulmonary evaluation by Dr. Austin. The patient has been in subacute care at [facility] and was transferred to [facility] Emergency Room because of change in mental status, shortness of breath, and respiratory failure. PAST MEDICAL HISTORY: Chronic obstructive pulmonary disease, congestive heart failure, renal insufficiency, diabetes mellitus, and hypertension with severe anemia. She is poorly compliant to medications and therapy. She also has a history of atrial fibrillation, paroxysmal. FAMILY HISTORY: Nonrevealing. SOCIAL HISTORY: She quit smoking years ago and lives alone. REVIEW OF SYSTEMS: Remarkable for shortness of breath and recurrent congestive heart failure and uncontrolled diabetes. PHYSICAL EXAMINATION: GENERAL: The patient is awake and alert, asking for water. VITAL SIGNS: Blood pressure 150/80, pulse of 90, respiratory rate 22, on high-flow oxygen, O2 saturation on admission was 84%, temperature 98 degrees Fahrenheit. SKIN: Shows fair turgor. HEENT: Pupils equal and reactive to light and accommodation. Mouth is dry. LUNGS: Poor aeration bilateral, with scattered rales and wheezing. HEART: S1, S2. ABDOMEN: Soft. No tenderness appreciated. EXTREMITIES: No edema or cyanosis appreciated. LABORATORY DATA: WBC 8.2, hemoglobin 11.3, platelet count 229,000. Sodium 151, potassium 4, BUN 30, creatinine 2, glucose 244. EKG: Normal sinus rhythm, premature ventricular complexes. Septal lead flattening noted. Chest x-ray: Official report pending, but appears to be pulmonary infiltrates bilaterally. Other remarkable labs include ABG that showed a pH of 7.29, pCO2 of 55, pO2 of 70, is on 100% FIO2. The troponin 0.188, up to 0.194. Urinalysis shows many yeast and rare bacteria. IMPRESSION: Acute respiratory failure due to combination of facts, pneumonia and congestive heart failure, elevated troponin, one has to rule out acute coronary syndrome, diabetes mellitus, poorly controlled, cardiac arrhythmias, poor compliance to therapy. PLAN: Maintain the patient on high-flow oxygen as well as bronchodilators to be given. Cardiac workup advised. History of renal insufficiency in the past, history of anemia in the past. We will place on empiric antibiotic therapy. We will continue to follow with you. Further therapy will depend on findings. Everett Jang MD
[2018-03-07] MEDS: Pravastatin Sodium 40 MG TAB PO SCH (21:05)
[2018-03-08] MEDS: Sucralfate 1 gm/10 ml Oral Susp UD PO SCH ×5 (01:53→21:30)
[2018-03-08 05:54] LABS: BASO % 0.2 % (0.0-2.0); HEMOGLOBIN 11.3 g/dL (12.0-16.0); LYMPH # 0.1 K/uL (1.0-4.3); LYMPH % 1.4 % (20.0-40.0); MEAN CELL VOLUME 95.6 fl (81.0-99.0); MEAN CORPUSCULAR HEMOGLOBIN 29.8 pg (27.0-31.0); MEAN CORPUSCULAR HGB CONC 31.1 g/dL (33.0-37.0); MEAN PLATELET VOLUME 8.3 fl (7.2-11.7); MONO # 0.2 K/uL (0.0-0.8); NEUT # 8.8 K/uL (1.8-7.0); NEUT % 96.4 % (50.0-75.0); NRBC % 0.2 % (0.0-0.0); PLATELET COUNT 251 K/uL (130-400); RED CELL DISTRIBUTION WIDTH 19.6 % (11.5-14.5); WHITE BLOOD COUNT 9.1 K/uL (4.8-10.8)
[2018-03-08 06:15] LABS: ALB/GLOB RATIO 1.1 (1.0-2.1); ALBUMIN 3.5 g/dL (3.5-5.0); CALCIUM 8.8 mg/dL (8.4-10.2)
[2018-03-08] MEDS: Insulin Lispro (humaLOG) 100 Units/ml Inj SC SCH ×4 (06:39→22:00)
[2018-03-08] MEDS: Potassium Chloride 20 mEq 100 ML IVPB SCH ×2 (08:38→10:24)
[2018-03-08 08:55] LABS: ANISOCYTOSIS SLIGHT; LYMPHOCYTE 4 % (20-50); MONOCYTE 3 % (0-10); NEUTROPHIL 93 % (42-75); PLATELET ESTIMATE NORMAL (NORMAL); TOTAL CELLS COUNTED 100
[2018-03-08 08:56] LABS: LARGE PLATELETS PRESENT; OVALOCYTES MODERATE
[2018-03-08] MEDS ORDERED: levoFLOXacin 500 mg in D5W 500 MG/100 ML BAG IVPB SCH (09:00)
[2018-03-08] MEDS ORDERED: Albuterol-Ipratrop 3 mg / 0.5 (3 ml) UD INH SCH (09:00)
--- NOTE | 2018-03-08 10:24 | CP.CCUPN ---
CCU Subjective - Physician Review Subjective (Free Text): No new events overnight, remains on HFNC at 100% oxygen, 20 LPM. No overall distress. Still intermittently vomiting up a bit of fluids after she drinks, no chest or abdominal discomfort. Other vitals and I/O's reviewed. No fever spikes SBPs 140-150s, HR 109, yonathan athing 20-23. SPo2 99%, fluid balance neg 1.4L. ROS: No other pertinent negs or positives on 10+ system review obtainable. PMSFH: All other Nursing and physician documentation reviewed to date; no new pertinent info noted relevant to current medical problems. EXAM- HEENT: no icterus, no gaze preference, Pupils 3 mm and reactive NECK: No JVD visible, supple, carotids equal upstroke bilat/no bruit CHEST: decreased BS at the bases and especially R lung, no wheezes audible HEART: regular, distant, S1S2, no rubs ABD: soft, no focal tenderness, no tympany, no guarding, no organomegaly, BS hypoactive. EXT: + LE edema, no calf tenderness or palpable cords, distal pulses intact and symmetrical, no cyanosis; RUE PICC NEURO: withdraws legs to pain, moves upper arms and hands spontaneously. SKIN: no rashes, warm and dry LABS: WBC= 9.1 HGB= 11.3 PLTs= 251K Na= 154 K= 3.5 VA=869 HCO3= 27 BUN/Cr= 34/2.0 BS= 229 CXR: Near complete opacification R lung, with minimal aeration, c/w large effusion, small effusion L, RUE PICC Seen (my interp). IMPRESSION / MAJOR PROBLEMS NOW: 1. Acute hypoxemic and Hypercapneic Resp Failure 2 Recurrent Pneumonia, parapneumonic effusion 2. Small Acute / Subacute NSTEMI with decompensated L-CHF 3. Hypernatremia 4. Azotemia / Acute on CKD, with h/o [employer] on HD PLAN: 1. Oxygenation support with HFNC, monitor for need for MV if mental status worsens or PaO2 PCO2 levels deteriorate. Consider IR eval for thoracentesis. 2. Empiric Abx coverage for HCAP, and atypical organisms. Consider diagnostic / therapeutic thoracentesis, need fluid analysis. H/o of yeast cultured from sputum during last hospitalization, but may have been a colonizer vs true infection, also had P.mirabilis UTI in Dec 2017. Repeat CXR today. 3. Mod-High dose Lasix challenge; ECHO from May 2017 reviewed. 4. Remains hypernatremic, D5W started today, stop steroids, maintain normoglycemia, Levemir started. 5. Coreg started as per Cardios advice, Zebeta stopped.
[2018-03-08] MEDS: Albuterol-Ipratrop 3 mg / 0.5 (3 ml) UD INH SCH ×4 (11:20→23:54)
[2018-03-08] MEDS ORDERED: Insulin Regular 100 units/ml SC SCH (12:00)
--- NOTE | 2018-03-08 13:07 | CP.PCM.PN ---
<Claudia Gentile - Last Filed: 03/08/18 15:45> Subjective - Date & Time of Evaluation Date of Evaluation: 03/08/18 Time of Evaluation: 08:00 - Subjective Subjective: Pt seen and examined this morning. Seen resting comfortably. Pt has been intermittently vomiting and unable to drink even small sips of water. Hypernatremia noted to be worsened to 154 this am, urine studies sent for further evaluation of cause, D5W started Objective - Vital Signs/Intake and Output Vital Signs (last 24 hours): Temp Pulse Resp BP Pulse Ox 98.4 F 116 H 21 156/84 H 91 L 03/08/18 12:00 03/08/18 12:00 03/08/18 12:00 03/08/18 12:00 03/08/18 12:00 Intake and Output: 03/08/18 03/08/18 06:59 18:59 Intake Total 1100 675 Output Total 1400 Balance -300 675 - Medications Medications: Current Medications Acetaminophen (Tylenol 325mg Tab) 650 mg PO Q6H PRN PRN Reason: Pain, Mild (1-3) Acetaminophen (Tylenol 325mg Tab) 650 mg PO Q6H PRN PRN Reason: Fever >100.4 F Albuterol/Ipratropium (Duoneb 3 Mg/0.5 Mg (3 Ml) Ud) 3 ml INH RQ4 [facility] Last Admin: 03/08/18 11:20 Dose: 3 ml Amlodipine Besylate (Norvasc) 10 mg PO DAILY [facility] Last Admin: 03/08/18 08:34 Dose: 10 mg Aspirin (Aspirin) 325 mg PO DAILY [facility] Last Admin: 03/08/18 10:21 Dose: 325 mg Carvedilol (Coreg) 25 mg PO Q12 [facility] Last Admin: 03/08/18 11:47 Dose: 25 mg Famotidine (Pepcid) 40 mg PO HS [facility] Last Admin: 03/07/18 21:05 Dose: 40 mg Furosemide (Lasix) 40 mg IVP DAILY [facility] Last Admin: 03/08/18 08:41 Dose: 40 mg Heparin Sodium (Porcine) (Heparin) 5,000 units SC Q8 [facility]; Protocol Last Admin: 03/08/18 08:34 Dose: 5,000 units Piperacillin Sod/Tazobactam (Sod 2.25 gm/ Sodium Chloride) 100 mls @ 100 mls/hr IVPB Q6 [facility]; Protocol Last Admin: 03/08/18 10:21 Dose: 100 mls/hr Levofloxacin/Dextrose (Levaquin 500mg) 500 mg in 100 mls @ 100 mls/hr IVPB Q48H [facility]; Protocol Last Admin: 03/08/18 08:09 Dose: 100 mls/hr Dextrose (Dextrose 5% In Water 1000 Ml) 1,000 mls @ 75 mls/hr IV .[id number] [facility] Stop: 03/09/18 07:16 Last Admin: 03/08/18 08:09 Dose: 75 mls/hr Insulin Detemir (Levemir) 8 units SC DAILY [facility] Insulin Human Lispro (Humalog) 0 units SC ACHS [facility]; Protocol Last Admin: 03/08/18 11:48 Dose: Not Given Insulin Human Regular (Humulin R) 0 units SC ACCU-CHECK [facility]; Protocol Isosorbide Mononitrate (Imdur Er) 30 mg PO DAILY [facility] Last Admin: 03/08/18 08:34 Dose: 30 mg Metoclopramide HCl (Reglan) 10 mg IVP Q6 PRN PRN Reason: Nausea/Vomiting Ondansetron HCl (Zofran Inj) 4 mg IVP Q6 PRN PRN Reason: Nausea/Vomiting Last Admin: 03/08/18 10:21 Dose: 4 mg Pantoprazole Sodium (Protonix Inj) 40 mg IVP DAILY [facility] Last Admin: 03/08/18 08:33 Dose: 40 mg Pravastatin Sodium (Pravachol) 40 mg PO HS [facility] Last Admin: 03/07/18 21:05 Dose: 40 mg Sucralfate (Carafate Oral Susp) 1 gm PO Q6H [facility] Last Admin: 03/08/18 08:34 Dose: 1 gm - Labs Labs: 03/08/18 05:00 03/08/18 05:00 - Constitutional Appears: No Acute Distress - Head Exam Head Exam: NORMAL INSPECTION - Eye Exam Eye Exam: Normal appearance - ENT Exam ENT Exam: Mucous Membranes Moist - Respiratory Exam Respiratory Exam: Decreased Breath Sounds, Rales (scattered ). absent: Accessory Muscle Use, Respiratory Distress - Cardiovascular Exam Cardiovascular Exam: REGULAR RHYTHM, +S1, +S2, Murmur (Systolic ejection murmur +3/6) - GI/Abdominal Exam GI & Abdominal Exam: Soft, Normal Bowel Sounds. absent: Distended, Guarding, Tenderness - Extremities Exam Extremities Exam: Pedal Edema Additional comments: upper extremities- edematous - Neurological Exam Neurological Exam: absent: Oriented x3 (AOx3) Assessment and Plan - Assessment and Plan (Free Text) Assessment: 78 y/o female with extensive medical history resident of [facility], recently discharged from [facility] 2 weeks ago after being treated for pneumonia/CHF/COPD/Pleural effusion ex, presented to hospital yesterday altered and dyspnic wit O2 sat 84 on room air. Daughter states patient was vomiting for the past 5 days. ER documentation reviewed. Pt was placed on Non Invasive Respiratory support which improved oxygenations status. Blood gas significant for Respiratory acidosis. Labs notable for hypernatremia (150), Hyperchrolimia, Crea 2.0 (baseline), Troponemia, ProBNP 26k. EKG reviewed (? ). Cxray was significant for R. hemothorax opacity with consolidation/possible infiltrate. Head CT- no evidence of acute infarct. Pt was treated with ASA 325, Lasix 40 IV, Solumedrol 125mg IV, Levofloxacin and Zosyn and 2 bronchodilators treatments. Cardiology (Dr. Stout), Pulmonology (Dr. Jang) consulted. Pt remained on high flow nasal cannula overnight. Hypercapnic and Hypoxic Respiratory Failure -Multifactorial; Likely secondary to new pleural effusion noted on Cxray vs COPD exas vs CHF exas vs Pneumonia -CO2 55 on ABG, O2Sat 84 on Rm air on admission -Maintaining good O2 sat on high flow O2 overnight (96) -Continue to monitor respiratory status and mental status -Pulmonology and Cardiology consulted COPD -C/W Bronchidilators -C/W IVSteroids CHF, acute decompensated, reduced EF (systolic) -BL effusioins and third spacing noted on physical exam -Diuretics, Lasiv 40 IV daily, monitor kidney function -ECHO (05/2017): EF 45-50%, RVSP 57, moderate pulmonary HTN, moderate aortic stenosis -Monitor I/O's -Check weights daily Pleural Effusion -Last admission had L. Pleural effusion and thoracentesis on -Now Pleural effusion is on R. side. May need Thoracentesis for diagnostic/thera peutic AMS -Alert and oriented x2 (improved since admission) -Likely hypercapnic/hypoxic vs metabolic encephalopathy vs infectious meningitis -Head CT no acute changes -Possible underlying hx of dementia -May need to Lumbar Tap to assess for Meningitis. Pending consent form POA. -Frequent Neuro checks Troponemia -EKG reviewed, NSTEMI? vs Demand Ischemia vs CKD tropinemia -Cardiology consulted- elevated troponin no concern for CAD, moderate aortic stenosis, avoid hypotension, maintain BP control consider Coreg -ASA, Statin, Bblocker Hypernatremia -Urine Osmolality 361 suggesting salt wasting, May be due to underlying SAW MAN pathology -C/W D5W -Encourage PO intake (limit to <1L/day due to CHF) HCAP -Empiric ABX coverage; Zosyn, Levoflocacin. Start Vancomycin and IV Acyclovir -Patient likely aspirated as she has been vomiting profusely -ID Consulted Vomiting -Liquid diet -KUb unremarkable -Reglan and Zofran prn DM -C/W home meds DVT ppx Heparin Discussed Case with Dr. Austin <Manpreet Austin - Last Filed: 03/10/18 17:36> Objective - Vital Signs/Intake and Output Vital Signs (last 24 hours): Temp Pulse Resp BP Pulse Ox 96.5 F L 99 H 24 128/75 98 03/09/18 20:00 03/09/18 20:56 03/09/18 20:00 03/09/18 20:56 03/09/18 20:00 - Labs Labs: 03/09/18 05:30 03/09/18 19:45 Assessment and Plan - Assessment and Plan (Free Text) Assessment: Patient was personally seen and examined by me in rounds with residents. Available labs and diagnostic data reviewed. Case, Patient's condition and management plan discussed with residents in rounds. Agree with resident's progress note. Plan: As ordered.
--- NOTE | 2018-03-08 14:06 | CP.PCM.PN ---
Subjective - Date & Time of Evaluation Date of Evaluation: 03/08/18 Time of Evaluation: 14:06 - Subjective Subjective: sob improving denies chest pains Objective - Vital Signs/Intake and Output Vital Signs (last 24 hours): Temp Pulse Resp BP Pulse Ox 98.4 F 116 H 21 156/84 H 91 L 03/08/18 12:00 03/08/18 12:00 03/08/18 12:00 03/08/18 12:00 03/08/18 12:00 Intake and Output: 03/08/18 03/08/18 06:59 18:59 Intake Total 1100 675 Output Total 1400 Balance -300 675 - Medications Medications: Current Medications Acetaminophen (Tylenol 325mg Tab) 650 mg PO Q6H PRN PRN Reason: Pain, Mild (1-3) Acetaminophen (Tylenol 325mg Tab) 650 mg PO Q6H PRN PRN Reason: Fever >100.4 F Albuterol/Ipratropium (Duoneb 3 Mg/0.5 Mg (3 Ml) Ud) 3 ml INH RQ4 [facility] Last Admin: 03/08/18 11:20 Dose: 3 ml Amlodipine Besylate (Norvasc) 10 mg PO DAILY [facility] Last Admin: 03/08/18 08:34 Dose: 10 mg Aspirin (Aspirin) 325 mg PO DAILY [facility] Last Admin: 03/08/18 10:21 Dose: 325 mg Carvedilol (Coreg) 25 mg PO Q12 [facility] Last Admin: 03/08/18 11:47 Dose: 25 mg Famotidine (Pepcid) 40 mg PO HS [facility] Last Admin: 03/07/18 21:05 Dose: 40 mg Furosemide (Lasix) 40 mg IVP DAILY [facility] Last Admin: 03/08/18 08:41 Dose: 40 mg Heparin Sodium (Porcine) (Heparin) 5,000 units SC Q8 [facility]; Protocol Last Admin: 03/08/18 08:34 Dose: 5,000 units Piperacillin Sod/Tazobactam (Sod 2.25 gm/ Sodium Chloride) 100 mls @ 100 mls/hr IVPB Q6 [facility]; Protocol Last Admin: 03/08/18 10:21 Dose: 100 mls/hr Levofloxacin/Dextrose (Levaquin 500mg) 500 mg in 100 mls @ 100 mls/hr IVPB Q48H [facility]; Protocol Last Admin: 03/08/18 08:09 Dose: 100 mls/hr Dextrose (Dextrose 5% In Water 1000 Ml) 1,000 mls @ 75 mls/hr IV .[id number] [facility] Stop: 03/09/18 07:16 Last Admin: 03/08/18 08:09 Dose: 75 mls/hr Insulin Detemir (Levemir) 8 units SC DAILY [facility] Insulin Human Lispro (Humalog) 0 units SC [facility]; Protocol Last Admin: 03/08/18 11:48 Dose: Not Given Insulin Human Regular (Humulin R) 0 units SC ACCU-CHECK [facility]; Protocol Isosorbide Mononitrate (Imdur Er) 30 mg PO DAILY [facility] Last Admin: 03/08/18 08:34 Dose: 30 mg Metoclopramide HCl (Reglan) 10 mg IVP Q6 PRN PRN Reason: Nausea/Vomiting Ondansetron HCl (Zofran Inj) 4 mg IVP Q6 PRN PRN Reason: Nausea/Vomiting Last Admin: 03/08/18 10:21 Dose: 4 mg Pantoprazole Sodium (Protonix Inj) 40 mg IVP DAILY [facility] Last Admin: 03/08/18 08:33 Dose: 40 mg Pravastatin Sodium (Pravachol) 40 mg PO HS [facility] Last Admin: 03/07/18 21:05 Dose: 40 mg Sucralfate (Carafate Oral Susp) 1 gm PO Q6H [facility] Last Admin: 03/08/18 08:34 Dose: 1 gm - Labs Labs: 03/08/18 05:00 03/08/18 05:00 - Constitutional Appears: Chronically Ill - Head Exam Head Exam: ATRAUMATIC, NORMAL INSPECTION, NORMOCEPHALIC - Eye Exam Eye Exam: EOMI, Normal appearance, PERRL Pupil Exam: NORMAL ACCOMODATION, PERRL - ENT Exam ENT Exam: Mucous Membranes Moist, Normal Exam - Neck Exam Neck Exam: Full ROM, Normal Inspection. absent: Lymphadenopathy - Respiratory Exam Respiratory Exam: Decreased Breath Sounds, Prolonged Expiratory Phase, Rales, NORMAL BREATHING PATTERN - Cardiovascular Exam Cardiovascular Exam: REGULAR RHYTHM, +S1, +S2. absent: Murmur - GI/Abdominal Exam GI & Abdominal Exam: Soft, Normal Bowel Sounds. absent: Tenderness - Rectal Exam Rectal Exam: NORMAL INSPECTION - Extremities Exam Extremities Exam: Full ROM, Normal Capillary Refill, Normal Inspection. absent: Joint Swelling, Pedal Edema - Back Exam Back Exam: NORMAL INSPECTION - Neurological Exam Neurological Exam: Alert, Awake, CN II-XII Intact, Normal Gait, Oriented x3 - Psychiatric Exam Psychiatric exam: Normal Affect, Normal Mood - Skin Skin Exam: Dry, Intact, Normal Color, Warm Assessment and Plan - Assessment and Plan (Free Text) Assessment: acute respiratory failure pleural effusion pneumonia ashd--s/p mi anxiety copd Plan: ok to d/c steroids and ,maintain on duoneb and o2 dnr discussed with pt--she does not want life support but will discus with f arianne agree with ct scan of chest to quantitate pleural effusion
--- NOTE | 2018-03-08 14:11 | RAD ---
Date of service: 03/08/2018 HISTORY: f/u PNA, effusion COMPARISON: March 07, 2018. FINDINGS: LUNGS: Improved aeration of the lungs. Considerable consolidative change remains in the right lung. PLEURA: Decrease in right pleural effusion. CARDIOVASCULAR: Atherosclerotic calcifications identified primarily aortic arch. Stable cardiac size PICC line in satisfactory position OSSEOUS STRUCTURES: No significant abnormalities. VISUALIZED UPPER ABDOMEN: Normal. OTHER FINDINGS: None. IMPRESSION: Interval decrease in infiltrates particularly the right lung and right pleural effusion.
--- NOTE | 2018-03-08 15:17 | CP.PCM.CON ---
History of Present Illness - History of Present Illness History of Present Illness: 78 y woman from [place] with vomiting and mental status changes. She says she throws up whatever she eats. Past Patient History - Past Medical History & Family History Past Medical History?: Yes - Past Social History Smoking Status: Never Smoked - CARDIAC Hx Atrial Fibrillation: Yes Hx Cardia Arrhythmia: Yes Hx Congestive Heart Failure: Yes Hx Hypercholesterolemia: Yes Hx Hypertension: Yes Hx Peripheral Edema: Yes - PULMONARY Hx Asthma: No Hx Bronchitis: Yes Hx Chronic Obstructive Pulmonary Disease (COPD): Yes Hx Pneumonia: Yes - NEUROLOGICAL Hx Neurological Disorder: No - HEENT Hx HEENT Problems: Yes Hx Cataracts: Yes - RENAL Hx Chronic Kidney Disease: Yes - ENDOCRINE/METABOLIC Hx Endocrine Disorders: Yes Hx Diabetes Mellitus Type 2: Yes - HEMATOLOGICAL/ONCOLOGICAL Hx Anemia: Yes Hx Human Immunodeficiency Virus (HIV): No - INTEGUMENTARY Hx Dermatological Problems: No - MUSCULOSKELETAL/RHEUMATOLOGICAL Hx Arthritis: Yes Hx Osteoporosis: Yes - GASTROINTESTINAL Hx Gall Bladder Disease: Yes Hx Gastritis: Yes - GENITOURINARY/GYNECOLOGICAL Hx Genitourinary Disorders: No - PSYCHIATRIC Hx Anxiety: Yes Hx Depression: Yes - SURGICAL HISTORY Hx Cholecystectomy: Yes Hx Coronary Stent: Yes - ANESTHESIA Hx Anesthesia: Yes Hx Anesthesia Reactions: No Hx Malignant Hyperthermia: No Meds Allergies/Adverse Reactions: Allergies Allergy/AdvReac Type Severity Reaction Status Date / Time alprazolam [From Xanax] Allergy SWELLING Verified 03/07/18 00:03 hydromorphone HCl Allergy RASH Verified 03/07/18 00:03 [From Dilaudid] zolpidem tartrate Allergy RASH Verified 03/07/18 00:03 [From Ambien] - Medications Medications: Current Medications Acetaminophen (Tylenol 325mg Tab) 650 mg PO Q6H PRN PRN Reason: Pain, Mild (1-3) Acetaminophen (Tylenol 325mg Tab) 650 mg PO Q6H PRN PRN Reason: Fever >100.4 F Albuterol/Ipratropium (Duoneb 3 Mg/0.5 Mg (3 Ml) Ud) 3 ml INH RQ4 [facility] Last Admin: 03/08/18 11:20 Dose: 3 ml Amlodipine Besylate (Norvasc) 10 mg PO DAILY [facility] Last Admin: 03/08/18 08:34 Dose: 10 mg Aspirin (Aspirin) 325 mg PO DAILY [facility] Last Admin: 03/08/18 10:21 Dose: 325 mg Carvedilol (Coreg) 25 mg PO Q12 [facility] Last Admin: 03/08/18 11:47 Dose: 25 mg Famotidine (Pepcid) 40 mg PO HS [facility] Last Admin: 03/07/18 21:05 Dose: 40 mg Furosemide (Lasix) 40 mg IVP DAILY [facility] Last Admin: 03/08/18 08:41 Dose: 40 mg Heparin Sodium (Porcine) (Heparin) 5,000 units SC Q8 [facility]; Protocol Last Admin: 03/08/18 08:34 Dose: 5,000 units Piperacillin Sod/Tazobactam (Sod 2.25 gm/ Sodium Chloride) 100 mls @ 100 mls/hr IVPB Q6 [facility]; Protocol Last Admin: 03/08/18 10:21 Dose: 100 mls/hr Levofloxacin/Dextrose (Levaquin 500mg) 500 mg in 100 mls @ 100 mls/hr IVPB Q48H [facility]; Protocol Last Admin: 03/08/18 08:09 Dose: 100 mls/hr Dextrose (Dextrose 5% In Water 1000 Ml) 1,000 mls @ 75 mls/hr IV .[id number] [facility] Stop: 03/09/18 07:16 Last Admin: 03/08/18 08:09 Dose: 75 mls/hr Insulin Detemir (Levemir) 8 units SC DAILY [facility] Insulin Human Lispro (Humalog) 0 units SC ACHS [facility]; Protocol Last Admin: 03/08/18 11:48 Dose: Not Given Insulin Human Regular (Humulin R) 0 units SC ACCU-CHECK [facility]; Protocol Isosorbide Mononitrate (Imdur Er) 30 mg PO DAILY [facility] Last Admin: 03/08/18 08:34 Dose: 30 mg Metoclopramide HCl (Reglan) 10 mg IVP Q6 PRN PRN Reason: Nausea/Vomiting Ondansetron HCl (Zofran Inj) 4 mg IVP Q6 PRN PRN Reason: Nausea/Vomiting Last Admin: 03/08/18 10:21 Dose: 4 mg Pantoprazole Sodium (Protonix Inj) 40 mg IVP DAILY [facility] Last Admin: 03/08/18 08:33 Dose: 40 mg Pravastatin Sodium (Pravachol) 40 mg PO HS [facility] Last Admin: 03/07/18 21:05 Dose: 40 mg Sucralfate (Carafate Oral Susp) 1 gm PO Q6H [facility] Last Admin: 03/08/18 15:09 Dose: Not Given Physical Exam - Eye Exam Additional comments: no neck signs - Respiratory Exam Additional comments: scattered rales Results - Vital Signs Recent Vital Signs: Last Vital Signs Temp 98.4 F 03/08/18 12:00 Pulse 103 H 03/08/18 14:00 Resp 27 H 03/08/18 14:00 BP 168/87 H 03/08/18 14:00 Pulse Ox 99 03/08/18 14:00 - Labs Result Diagrams: 03/08/18 05:00 03/08/18 05:00 Labs: Laboratory Results - last 24 hr 03/07/18 03/07/18 03/08/18 16:51 21:03 05:00 WBC 9.1 RBC 3.80 Hgb 11.3 L Hct 36.4 MCV 95.6 MCH 29.8 MCHC 31.1 L RDW 19.6 H Plt Count 251 MPV 8.3 Neut % (Auto) 96.4 H Lymph % (Auto) 1.4 L [place] % (Auto) 2.0 Eos % (Auto) 0.0 Baso % (Auto) 0.2 Neut # (Auto) 8.8 H Lymph # (Auto) 0.1 L [place] # (Auto) 0.2 Eos # (Auto) 0.0 Baso # (Auto) 0.0 Neutrophils % (Manual) 93 H Lymphocytes % (Manual) 4 L Monocytes % (Manual) 3 Platelet Estimate Normal Large Platelets Present Anisocytosis (manual) Slight Macrocytosis (manual) Slight Ovalocytes Moderate Sodium Potassium Chloride Carbon Dioxide Anion Gap BUN Creatinine Est GFR ( Amer) Est GFR (Non-Af Amer) POC Glucose (mg/dL) 208 H 175 H Random Glucose Calcium Phosphorus Magnesium Total Bilirubin AST ALT Alkaline Phosphatase Total Protein Albumin Globulin Albumin/Globulin Ratio Amylase Lipase Procalcitonin Urine Osmolality Ur Random Sodium Ur Random Potassium 03/08/18 03/08/18 03/08/18 05:00 05:00 05:37 WBC RBC Hgb Hct MCV MCH MCHC RDW Plt Count MPV Neut % (Auto) Lymph % (Auto) [place] % (Auto) Eos % (Auto) Baso % (Auto) Neut # (Auto) Lymph # (Auto) [place] # (Auto) Eos # (Auto) Baso # (Auto) Neutrophils % (Manual) Lymphocytes % (Manual) Monocytes % (Manual) Platelet Estimate Large Platelets Anisocytosis (manual) Macrocytosis (manual) Ovalocytes Sodium 154 H Potassium 3.5 L Chloride 112 H Carbon Dioxide 27 Anion Gap 19 BUN 34 H Creatinine 2.0 H Est GFR ( Amer) 29 Est GFR (Non-Af Amer) 24 POC Glucose (mg/dL) 238 H Random Glucose 229 H Calcium 8.8 Phosphorus 4.0 Magnesium 1.9 Total Bilirubin 0.8 AST 56 H D ALT 118 H D Alkaline Phosphatase 102 Total Protein 6.9 Albumin 3.5 Globulin 3.3 Albumin/Globulin Ratio 1.1 Amylase 43 Lipase 37 Procalcitonin 0.52 H Urine Osmolality Ur Random Sodium Ur Random Potassium 03/08/18 03/08/18 11:15 12:24 WBC RBC Hgb Hct MCV MCH MCHC RDW Plt Count MPV Neut % (Auto) Lymph % (Auto) [place] % (Auto) Eos % (Auto) Baso % (Auto) Neut # (Auto) Lymph # (Auto) [place] # (Auto) Eos # (Auto) Baso # (Auto) Neutrophils % (Manual) Lymphocytes % (Manual) Monocytes % (Manual) Platelet Estimate Large Platelets Anisocytosis (manual) Macrocytosis (manual) Ovalocytes Sodium Potassium Chloride Carbon Dioxide Anion Gap BUN Creatinine Est GFR ( Amer) Est GFR (Non-Af Amer) POC Glucose (mg/dL) 227 H Random Glucose Calcium Phosphorus Magnesium Total Bilirubin AST ALT Alkaline Phosphatase Total Protein Albumin Globulin Albumin/Globulin Ratio Amylase Lipase Procalcitonin Urine Osmolality 361 Ur Random Sodium 108 Ur Random Potassium 31.2 Assessment & Plan - Assessment and Plan (Free Text) Assessment: Recurrent pneumonia with patchy opacities Mental status changes Hypernatremia with salt wasting in urine rule out 1. meningitis 2. HSV encephalitis Start Vancomycin i.v 750 mg once daily Start Cefepime, continue levafloxacin Start Acyclovir 600mg 1 dose pending CSF tap
--- NOTE | 2018-03-08 16:23 | RAD ---
Date of service: 03/08/2018 HISTORY: intractable vomiting, r/o gastroparesis or SBO COMPARISON: None available. FINDINGS: BOWEL: Normal. No obstruction. No free air. BONES: Normal. OTHER FINDINGS: None. IMPRESSION: No visible obstruction or free air. Limitations of the current study single AP view.
[2018-03-08] MEDS: Acyclovir 500 MG in Sodium Chloride 0.9% 100 ML IVPB SCH (16:53)
--- NOTE | 2018-03-08 17:20 | CT ---
Date of service: 03/08/2018 PROCEDURE: CT Chest without contrast HISTORY: Pneumonia, effusion, r/o nodules COMPARISON: 02/07/2018 CT thorax TECHNIQUE: Contiguous axial images were obtained through the chest without intravenous contrast enhancement. Sagittal and coronal reconstructions were performed. Radiation dose: Total exam DLP = 504.07 mGy-cm. This CT exam was performed using one or more of the following dose reduction techniques: Automated exposure control, adjustment of the mA and/or kV according to patient size, and/or use of iterative reconstruction technique. FINDINGS: LUNGS: Progressive compressive atelectasis primarily affecting the right lower lobe. New right upper lobe infiltrate. Progressive consolidative changes left upper lobe. Decrease in left lower lobe infiltrate. MEDIASTINUM: Unremarkable thoracic aorta. No aneurysm. Normal sized heart. Main pulmonary artery unremarkable. No vascular congestion. No lymphadenopathy. No aortic atherosclerotic calcification. PLEURA: Increasing right pleural effusion. Decrease in left pleural effusion. BONES: No fracture. No destructive lesion. Stable compression deformity lower thoracic spine. UPPER ABDOMEN: Grossly unremarkable. OTHER FINDINGS: None. IMPRESSION: 1. Substantial increase in right pleural effusion. 2. Commensurate increasing consolidative change primarily affecting right lower lobe and to lesser extent right upper lobe. 3. Modest decrease in left pleural effusion. Improved aeration of the root left lower lobe. 4. New multifocal infiltrates primarily affecting left upper lobe. 5. Persistent dilatation of the esophagus which is now fluid filled.
[2018-03-08] MEDS ORDERED: Saliva Substitute(Caphosol) 15 ML SOL MM ONE (20:00)
[2018-03-08] MEDS: Pravastatin Sodium 40 MG TAB PO SCH (22:00)
[2018-03-09] MEDS: Acyclovir 500 MG in Sodium Chloride 0.9% 100 ML IVPB SCH ×3 (00:14→16:27)
[2018-03-09] MEDS ORDERED: Metoprolol 1 mg/ml Inj IVP ONE (04:00)
[2018-03-09] MEDS: Albuterol-Ipratrop 3 mg / 0.5 (3 ml) UD INH SCH ×5 (04:43→19:14)
--- NOTE | 2018-03-09 07:01 | CP.PCM.PN ---
Subjective - Date & Time of Evaluation Date of Evaluation: 03/09/18 Time of Evaluation: 06:45 - Subjective Subjective: patient remains in ICU. She has vomiting with po intake. denies chest pain. not on oral meds Objective - Vital Signs/Intake and Output Vital Signs (last 24 hours): Temp Pulse Resp BP Pulse Ox 98.6 F 105 H 23 158/74 H 95 03/09/18 04:00 03/09/18 06:00 03/09/18 06:00 03/09/18 06:00 03/09/18 06:00 Intake and Output: 03/08/18 03/09/18 18:59 06:59 Intake Total 975 900 Output Total 1000 1000 Balance -25 -100 - Medications Medications: Current Medications Acetaminophen (Tylenol 325mg Tab) 650 mg PO Q6H PRN PRN Reason: Pain, Mild (1-3) Acetaminophen (Tylenol 325mg Tab) 650 mg PO Q6H PRN PRN Reason: Fever >100.4 F Albuterol/Ipratropium (Duoneb 3 Mg/0.5 Mg (3 Ml) Ud) 3 ml INH RQ4 [facility] Last Admin: 03/09/18 04:43 Dose: 3 ml Amlodipine Besylate (Norvasc) 10 mg PO DAILY [facility] Last Admin: 03/08/18 08:34 Dose: 10 mg Aspirin (Aspirin) 325 mg PO DAILY [facility] Last Admin: 03/08/18 10:21 Dose: 325 mg Carvedilol (Coreg) 25 mg PO Q12 [facility] Last Admin: 03/08/18 22:00 Dose: Not Given Famotidine (Pepcid) 40 mg PO HS [facility] Last Admin: 03/08/18 22:00 Dose: Not Given Furosemide (Lasix) 40 mg IVP DAILY [facility] Last Admin: 03/08/18 08:41 Dose: 40 mg Heparin Sodium (Porcine) (Heparin) 5,000 units SC Q8 [facility]; Protocol Last Admin: 03/09/18 00:15 Dose: 5,000 units Piperacillin Sod/Tazobactam (Sod 2.25 gm/ Sodium Chloride) 100 mls @ 100 mls/hr IVPB Q6 [facility]; Protocol Last Admin: 03/09/18 03:46 Dose: 100 mls/hr Levofloxacin/Dextrose (Levaquin 500mg) 500 mg in 100 mls @ 100 mls/hr IVPB Q48H [facility]; Protocol Last Admin: 03/08/18 08:09 Dose: 100 mls/hr Dextrose (Dextrose 5% In Water 1000 Ml) 1,000 mls @ 75 mls/hr IV .[id number] [facility] Stop: 03/09/18 07:16 Last Admin: 03/08/18 08:09 Dose: 75 mls/hr Vancomycin HCl 500 mg/ Sodium (Chloride) 100 mls @ 100 mls/hr IVPB DAILY [facility]; Protocol Stop: 03/14/18 09:59 Last Admin: 03/08/18 16:51 Dose: 100 mls/hr Acyclovir 500 mg/ Sodium (Chloride) 100 mls @ 100 mls/hr IVPB Q8 [facility]; Protocol Last Admin: 03/09/18 00:14 Dose: 100 mls/hr Insulin Detemir (Levemir) 8 units SC DAILY [facility] Insulin Human Lispro (Humalog) 0 units SC ACHS [facility]; Protocol Last Admin: 03/08/18 22:00 Dose: Not Given Insulin Human Regular (Humulin R) 0 units SC ACCU-CHECK [facility]; Protocol Last Admin: 03/08/18 23:00 Dose: Not Given Isosorbide Mononitrate (Imdur Er) 30 mg PO DAILY [facility] Last Admin: 03/08/18 08:34 Dose: 30 mg Metoclopramide HCl (Reglan) 10 mg IVP Q6 PRN PRN Reason: Nausea/Vomiting Last Admin: 03/08/18 21:29 Dose: 10 mg Ondansetron HCl (Zofran Inj) 4 mg IVP Q6 PRN PRN Reason: Nausea/Vomiting Last Admin: 03/08/18 10:21 Dose: 4 mg Pantoprazole Sodium (Protonix Inj) 40 mg IVP DAILY [facility] Last Admin: 03/08/18 08:33 Dose: 40 mg Pravastatin Sodium (Pravachol) 40 mg PO HS [facility] Last Admin: 03/08/18 22:00 Dose: Not Given Sucralfate (Carafate Oral Susp) 1 gm PO Q6H [facility] Last Admin: 03/08/18 21:30 Dose: 1 gm - Labs Labs: 03/08/18 05:00 03/08/18 05:00 - Constitutional Appears: Chronically Ill - Head Exam Head Exam: NORMAL INSPECTION - Eye Exam Eye Exam: Normal appearance - ENT Exam ENT Exam: Mucous Membranes Dry - Neck Exam Neck Exam: Full ROM - Respiratory Exam Respiratory Exam: Decreased Breath Sounds - Cardiovascular Exam Cardiovascular Exam: Tachycardia, REGULAR RHYTHM, Murmur - GI/Abdominal Exam GI & Abdominal Exam: Normal Bowel Sounds - Rectal Exam Rectal Exam: Deferred - Extremities Exam Extremities Exam: Normal Inspection. absent: Pedal Edema - Back Exam Back Exam: NORMAL INSPECTION - Neurological Exam Neurological Exam: Alert - Psychiatric Exam Psychiatric exam: Normal Affect - Skin Skin Exam: Normal Color Assessment and Plan (1) Aortic stenosis Assessment & Plan: moderate. will continue medical therapy and avoid hypotension Status: Acute (2) CAD (coronary artery disease) Assessment & Plan: no current angina Status: Acute (3) HTN (hypertension) Assessment & Plan: needs better blood pressure control. consider infusion of cardizem at low dose if cannot tolerate po. Status: Acute
[2018-03-09 07:29] LABS: HEMOGLOBIN 11.1 g/dL (12.0-16.0); MEAN CELL VOLUME 94.7 fl (81.0-99.0); MEAN CORPUSCULAR HEMOGLOBIN 29.4 pg (27.0-31.0); MEAN CORPUSCULAR HGB CONC 31.1 g/dL (33.0-37.0); RBC 3.75 Mil/uL (3.80-5.20); RED CELL DISTRIBUTION WIDTH 19.1 % (11.5-14.5); WHITE BLOOD COUNT 11.2 K/uL (4.8-10.8)
[2018-03-09] MEDS: Insulin Lispro (humaLOG) 100 Units/ml Inj SC SCH ×3 (07:44→16:29)
[2018-03-09 07:59] LABS: ALBUMIN 3.2 g/dL (3.5-5.0); CALCIUM 8.2 mg/dL (8.4-10.2)
[2018-03-09] MEDS: Sucralfate 1 gm/10 ml Oral Susp UD PO SCH ×3 (08:17→20:56)
[2018-03-09] MEDS: Insulin Detemir 100 Units/ml Inj SC SCH ×2 (08:41→08:44)
--- NOTE | 2018-03-09 08:53 | CP.CCUPN ---
CCU Subjective - Physician Review Events Since Last Encounter (Free Text): 03/09/18 08:51 Feeling better now and talking to me but earlier was c.o SOB, improved with nebulizors, O2 sat has been 95% 0r high, pt in not tachypnic, on HFNC neh119%, 20 LPM, . CCU Objective - Vital Signs / Intake & Output Vital Signs (Last 4 hours): Vital Signs Temp Pulse Resp BP Pulse Ox 03/09/18 08:31 151/81 H 03/09/18 08:18 108 H 151/81 H 03/09/18 08:00 98.9 F 117 H 30 H 93 L 03/09/18 07:52 20 03/09/18 06:00 105 H 23 158/74 H 95 Intake and Output (Last 8hrs): Intake & Output 03/08/18 03/09/18 03/09/18 22:59 06:59 14:59 Intake Total 400 650 75 Output Total 1000 1000 Balance -600 -350 75 Weight 132 lb Intake: IV 300 450 75 Intake, Piggyback 100 200 Output: Urine 1000 1000 Urethral ([place]) 1000 1000 Other: # Bowel Movements 0 - Physical Exam Narrative Physical Exam (Free Text): 03/09/18 08:53 P/E Neck: No JVD Lungs: decreased breath sounds, Rt base Heart: no gallop Abdomen: soft, non tender Ext; No edema - Medications Active Medications: Active Medications Generic Name Dose Route Start Last Admin Trade Name Freq PRN Reason Stop Dose Admin Acetaminophen 650 mg 03/07/18 02:43 Tylenol 325mg Tab PO Q6H PRN Pain, Mild (1-3) Acetaminophen 650 mg 03/07/18 02:43 Tylenol 325mg Tab PO Q6H PRN Fever >100.4 F Albuterol/Ipratropium 3 ml 03/08/18 12:00 03/09/18 07:51 Duoneb 3 Mg/0.5 Mg (3 Ml) Ud INH 3 ml RQ4 LUIZ Administration Amlodipine Besylate 10 mg 03/07/18 09:00 03/08/18 08:34 Norvasc PO 10 mg DAILY LUIZ Administration Aspirin 325 mg 03/07/18 09:00 03/09/18 08:33 Aspirin PO 325 mg DAILY LUIZ Administration Carvedilol 25 mg 03/08/18 09:00 03/09/18 08:18 Coreg PO 25 mg Q12 LUIZ Administration Famotidine 40 mg 03/07/18 22:00 03/08/18 22:00 Pepcid PO Not Given HS [facility] Furosemide 40 mg 03/07/18 09:00 03/09/18 08:31 Lasix IVP 40 mg DAILY LUIZ Administration Heparin Sodium (Porcine) 5,000 units 03/07/18 09:00 03/09/18 08:16 Heparin SC 5,000 units Q8 LUIZ Administration Protocol Piperacillin Sod/Tazobactam 100 mls @ 100 mls/hr 03/07/18 04:00 03/09/18 03:46 Sod 2.25 gm/ Sodium Chloride IVPB 100 mls/hr Q6 LUIZ Administration Protocol Levofloxacin/Dextrose 500 mg in 100 mls @ 100 mls/hr 03/08/18 09:00 03/08/18 08:09 Levaquin 500mg IVPB 100 mls/hr Q48H [facility] Administration Protocol Vancomycin HCl 500 mg/ Sodium 100 mls @ 100 mls/hr 03/08/18 15:45 03/08/18 16:51 Chloride IVPB 03/14/18 09:59 100 mls/hr DAILY [facility] Administration Protocol Acyclovir 500 mg/ Sodium 100 mls @ 100 mls/hr 03/08/18 17:00 03/09/18 08:20 Chloride IVPB 100 mls/hr Q8 [facility] Administration Protocol Insulin Detemir 8 units 03/08/18 09:00 03/09/18 08:44 Levemir SC 8 u DAILY [facility] Administration Insulin Human Lispro 0 units 03/07/18 07:30 03/09/18 07:44 Humalog SC 3 u ACHS [facility] Administration Protocol Insulin Human Regular 0 units 03/08/18 12:00 03/08/18 23:00 Humulin R SC Not Given ACCU-CHECK [facility] Protocol Isosorbide Mononitrate 30 mg 03/07/18 09:00 03/09/18 08:17 Imdur Er PO 30 mg DAILY LUIZ Administration Metoclopramide HCl 10 mg 03/08/18 18:00 03/08/18 21:29 Reglan IVP 10 mg Q6 PRN Administration Nausea/Vomiting Ondansetron HCl 4 mg 03/07/18 06:42 03/08/18 10:21 Zofran Inj IVP 4 mg Q6 PRN Administration Nausea/Vomiting Pantoprazole Sodium 40 mg 03/08/18 09:00 03/09/18 08:16 Protonix Inj IVP 40 mg DAILY LUIZ Administration Pravastatin Sodium 40 mg 03/07/18 22:00 03/08/18 22:00 Pravachol PO Not Given HS LUIZ Sucralfate 1 gm 03/07/18 02:45 03/09/18 08:17 Carafate Oral Susp PO 1 gm Q6H LUIZ Administration - Patient Studies Lab Studies: Microbiology Studies 03/07/18 01:00 Blood Culture - Preliminary Blood NO GROWTH AFTER 48 HOURS 03/07/18 00:45 Blood Culture - Preliminary Blood NO GROWTH AFTER 48 HOURS 03/07/18 05:00 MRSA Culture (Admit) - Final Naris MRSA DETECTED 03/07/18 03:30 Urine Culture - Final Urine,Macias No Growth (<1,000 CFU/ML) Lab Studies 03/09/18 03/09/18 03/09/18 Range/Units 07:41 05:34 05:30 WBC (4.8-10.8) K/uL RBC (3.80-5.20) Mil/uL Hgb (12.0-16.0) g/dL Hct (34.0-47.0) % MCV (81.0-99.0) fl MCH (27.0-31.0) pg MCHC (33.0-37.0) g/dL RDW (11.5-14.5) % Plt Count (130-400) K/uL Neutrophils % (Manual) (42-75) % Lymphocytes % (Manual) (20-50) % Monocytes % (Manual) (0-10) % Platelet Estimate (NORMAL) Large Platelets Anisocytosis (manual) Macrocytosis (manual) Ovalocytes Sodium 151 H (132-148) mmol/l Potassium 3.0 L (3.6-5.0) MMOL/L Chloride 108 H (98-107) mmol/L Carbon Dioxide 32 H (22-30) mmol/L Anion Gap 14 (10-20) BUN 38 H (7-17) mg/dl Creatinine 2.0 H (0.7-1.2) mg/dl Est GFR ( Amer) 29 Est GFR (Non-Af Amer) 24 POC Glucose (mg/dL) 270 H 274 H (65-110) mg/dL Random Glucose 292 H (65-105) mg/dL Calcium 8.2 L (8.4-10.2) mg/dL Total Bilirubin 0.7 (0.2-1.3) mg/dl AST 28 (14-36) U/L ALT 97 H (9-52) U/L Alkaline Phosphatase 101 (38-126) U/L Total Protein 6.5 (6.3-8.2) G/DL Albumin 3.2 L (3.5-5.0) g/dL Globulin 3.3 (2.2-3.9) gm/dL Albumin/Globulin Ratio 1.0 (1.0-2.1) Procalcitonin (0.19-0.49) NG/ML TSH 3rd Generation (0.46-4.68) mIU/ML Urine Osmolality (300-1000) mosm/kg Ur Random Sodium meq/L Ur Random Potassium mmol/L 03/09/18 03/08/18 03/08/18 Range/Units 05:30 21:05 16:44 WBC 11.2 H (4.8-10.8) K/uL RBC 3.75 L (3.80-5.20) Mil/uL Hgb 11.1 L (12.0-16.0) g/dL Hct 35.5 (34.0-47.0) % MCV 94.7 (81.0-99.0) fl MCH 29.4 (27.0-31.0) pg MCHC 31.1 L (33.0-37.0) g/dL RDW 19.1 H (11.5-14.5) % Plt Count 252 (130-400) K/uL Neutrophils % (Manual) (42-75) % Lymphocytes % (Manual) (20-50) % Monocytes % (Manual) (0-10) % Platelet Estimate (NORMAL) Large Platelets Anisocytosis (manual) Macrocytosis (manual) Ovalocytes Sodium (132-148) mmol/l Potassium (3.6-5.0) MMOL/L Chloride (98-107) mmol/L Carbon Dioxide (22-30) mmol/L Anion Gap (10-20) BUN (7-17) mg/dl Creatinine (0.7-1.2) mg/dl Est GFR ( Amer) Est GFR (Non-Af Amer) POC Glucose (mg/dL) 266 H 306 H (65-110) mg/dL Random Glucose (65-105) mg/dL Calcium (8.4-10.2) mg/dL Total Bilirubin (0.2-1.3) mg/dl AST (14-36) U/L ALT (9-52) U/L Alkaline Phosphatase (38-126) U/L Total Protein (6.3-8.2) G/DL Albumin (3.5-5.0) g/dL Globulin (2.2-3.9) gm/dL Albumin/Globulin Ratio (1.0-2.1) Procalcitonin (0.19-0.49) NG/ML TSH 3rd Generation (0.46-4.68) mIU/ML Urine Osmolality (300-1000) mosm/kg Ur Random Sodium meq/L Ur Random Potassium mmol/L 03/08/18 03/08/18 03/08/18 Range/Units 16:04 12:24 11:15 WBC (4.8-10.8) K/uL RBC (3.80-5.20) Mil/uL Hgb (12.0-16.0) g/dL Hct (34.0-47.0) % MCV (81.0-99.0) fl MCH (27.0-31.0) pg MCHC (33.0-37.0) g/dL RDW (11.5-14.5) % Plt Count (130-400) K/uL Neutrophils % (Manual) (42-75) % Lymphocytes % (Manual) (20-50) % Monocytes % (Manual) (0-10) % Platelet Estimate (NORMAL) Large Platelets Anisocytosis (manual) Macrocytosis (manual) Ovalocytes Sodium (132-148) mmol/l Potassium (3.6-5.0) MMOL/L Chloride (98-107) mmol/L Carbon Dioxide (22-30) mmol/L Anion Gap (10-20) BUN (7-17) mg/dl Creatinine (0.7-1.2) mg/dl Est GFR ( Amer) Est GFR (Non-Af Amer) POC Glucose (mg/dL) 227 H (65-110) mg/dL Random Glucose (65-105) mg/dL Calcium (8.4-10.2) mg/dL Total Bilirubin (0.2-1.3) mg/dl AST (14-36) U/L ALT (9-52) U/L Alkaline Phosphatase (38-126) U/L Total Protein (6.3-8.2) G/DL Albumin (3.5-5.0) g/dL Globulin (2.2-3.9) gm/dL Albumin/Globulin Ratio (1.0-2.1) Procalcitonin (0.19-0.49) NG/ML TSH 3rd Generation 0.82 (0.46-4.68) mIU/ML Urine Osmolality 361 (300-1000) mosm/kg Ur Random Sodium 108 meq/L Ur Random Potassium 31.2 mmol/L 03/08/18 03/08/18 Range/Units 05:00 05:00 WBC (4.8-10.8) K/uL RBC (3.80-5.20) Mil/uL Hgb (12.0-16.0) g/dL Hct (34.0-47.0) % MCV (81.0-99.0) fl MCH (27.0-31.0) pg MCHC (33.0-37.0) g/dL RDW (11.5-14.5) % Plt Count (130-400) K/uL Neutrophils % (Manual) 93 H (42-75) % Lymphocytes % (Manual) 4 L (20-50) % Monocytes % (Manual) 3 (0-10) % Platelet Estimate Normal (NORMAL) Large Platelets Present Anisocytosis (manual) Slight Macrocytosis (manual) Slight Ovalocytes Moderate Sodium (132-148) mmol/l Potassium (3.6-5.0) MMOL/L Chloride (98-107) mmol/L Carbon Dioxide (22-30) mmol/L Anion Gap (10-20) BUN (7-17) mg/dl Creatinine (0.7-1.2) mg/dl Est GFR ( Amer) Est GFR (Non-Af Amer) POC Glucose (mg/dL) (65-110) mg/dL Random Glucose (65-105) mg/dL Calcium (8.4-10.2) mg/dL Total Bilirubin (0.2-1.3) mg/dl AST (14-36) U/L ALT (9-52) U/L Alkaline Phosphatase (38-126) U/L Total Protein (6.3-8.2) G/DL Albumin (3.5-5.0) g/dL Globulin (2.2-3.9) gm/dL Albumin/Globulin Ratio (1.0-2.1) Procalcitonin 0.52 H (0.19-0.49) NG/ML TSH 3rd Generation (0.46-4.68) mIU/ML Urine Osmolality (300-1000) mosm/kg Ur Random Sodium meq/L Ur Random Potassium mmol/L Laboratory Results - last 24 hr 03/08/18 03/08/18 03/08/18 05:00 05:00 11:15 WBC RBC Hgb Hct MCV MCH MCHC RDW Plt Count Neutrophils % (Manual) 93 H Lymphocytes % (Manual) 4 L Monocytes % (Manual) 3 Platelet Estimate Normal Large Platelets Present Anisocytosis (manual) Slight Macrocytosis (manual) Slight Ovalocytes Moderate Sodium Potassium Chloride Carbon Dioxide Anion Gap BUN Creatinine Est GFR ( Amer) Est GFR (Non-Af Amer) POC Glucose (mg/dL) 227 H Random Glucose Calcium Total Bilirubin AST ALT Alkaline Phosphatase Total Protein Albumin Globulin Albumin/Globulin Ratio Procalcitonin 0.52 H TSH 3rd Generation Urine Osmolality Ur Random Sodium Ur Random Potassium 03/08/18 03/08/18 03/08/18 12:24 16:04 16:44 WBC RBC Hgb Hct MCV MCH MCHC RDW Plt Count Neutrophils % (Manual) Lymphocytes % (Manual) Monocytes % (Manual) Platelet Estimate Large Platelets Anisocytosis (manual) Macrocytosis (manual) Ovalocytes Sodium Potassium Chloride Carbon Dioxide Anion Gap BUN Creatinine Est GFR ( Amer) Est GFR (Non-Af Amer) POC Glucose (mg/dL) 306 H Random Glucose Calcium Total Bilirubin AST ALT Alkaline Phosphatase Total Protein Albumin Globulin Albumin/Globulin Ratio Procalcitonin TSH 3rd Generation 0.82 Urine Osmolality 361 Ur Random Sodium 108 Ur Random Potassium 31.2 03/08/18 03/09/18 03/09/18 21:05 05:30 05:30 WBC 11.2 H RBC 3.75 L Hgb 11.1 L Hct 35.5 MCV 94.7 MCH 29.4 MCHC 31.1 L RDW 19.1 H Plt Count 252 Neutrophils % (Manual) Lymphocytes % (Manual) Monocytes % (Manual) Platelet Estimate Large Platelets Anisocytosis (manual) Macrocytosis (manual) Ovalocytes Sodium 151 H Potassium 3.0 L Chloride 108 H Carbon Dioxide 32 H Anion Gap 14 BUN 38 H Creatinine 2.0 H Est GFR ( Amer) 29 Est GFR (Non-Af Amer) 24 POC Glucose (mg/dL) 266 H Random Glucose 292 H Calcium 8.2 L Total Bilirubin 0.7 AST 28 ALT 97 H Alkaline Phosphatase 101 Total Protein 6.5 Albumin 3.2 L Globulin 3.3 Albumin/Globulin Ratio 1.0 Procalcitonin TSH 3rd Generation Urine Osmolality Ur Random Sodium Ur Random Potassium 03/09/18 03/09/18 05:34 07:41 WBC RBC Hgb Hct MCV MCH MCHC RDW Plt Count Neutrophils % (Manual) Lymphocytes % (Manual) Monocytes % (Manual) Platelet Estimate Large Platelets Anisocytosis (manual) Macrocytosis (manual) Ovalocytes Sodium Potassium Chloride Carbon Dioxide Anion Gap BUN Creatinine Est GFR ( Amer) Est GFR (Non-Af Amer) POC Glucose (mg/dL) 274 H 270 H Random Glucose Calcium Total Bilirubin AST ALT Alkaline Phosphatase Total Protein Albumin Globulin Albumin/Globulin Ratio Procalcitonin TSH 3rd Generation Urine Osmolality Ur Random Sodium Ur Random Potassium Fingerstick Blood Sugar Results: 270 Critical Care Progress Note - Nutrition Nutrition: Nutrition Category Date Time Status NPO Diet [DIET] Diets 03/08/18 Dinner Active Assessment/Plan - Assessment and Plan (Free Text) Assessment: IMPRESSION / MAJOR PROBLEMS NOW: 1. Acute hypoxemic and Hypercapneic Resp Failure 2 Recurrent Pneumonia, parapneumonic effusion, Rt pleural effusion is bigger now 2. Small Acute / Subacute NSTEMI with decompensated L-CHF 3. Hypernatremia : improving, was 154, now 151 4. 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 Oxygenation support with HFNC, monitor for need for MV if mental status w orsens or PaO2 PCO2 levels deteriorate. Needs thoracentesis. 2. Empiric Abx coverage for HCAP, and atypical organisms. Needs therapeutic and diagnostic thoracentesis, . H/o of yeast cultured from sputum during last hospitalization, but may have been a colonizer vs true infection, also had P.mirabilis UTI in Dec 2017. Repeat CXR today. 3. Mod-High dose Lasix challenge; ECHO from May 2017 reviewed. 4. Hypernatremia is better, needs diuresis , will add thiazide diuretics, metolazone 5 mg daily, in addition to loop diuretics. 5. On Coreg as per Cardios , Zebeta stopped.
--- NOTE | 2018-03-09 11:07 | PN ---
DATE: 03/09/2018 SUBJECTIVE: The patient seen and examined. Interim events noted. Consults noted and appreciated. The patient remains in intensive care unit. Case discussed with nuclear reactor operator. The patient complains of occasional shortness of breath, improved with treatment and currently, no chest pain. PHYSICAL EXAMINATION: GENERAL: The patient is in no acute distress. VITAL SIGNS: Stable. HEART: S1 and S2 normal and regular. LUNGS: ____. No wheezing. ABDOMEN: Soft, nontender. No organomegaly. No fluid. Bowel sounds are plus and normal. EXTREMITIES: No edema. No calf swelling. No tenderness. No acute ischemia. ASSISTANT PROJECT MANAGER: Exam is essentially unchanged. DIAGNOSTIC DATA: Available diagnostic data reviewed. Telemetry monitoring does not show significant arrhythmias. ASSESSMENT AND PLAN: Overall, the patient's general medical condition is stable. She has ____ bronchospasm. Plan as ordered. aMnpreet Austin MD
--- NOTE | 2018-03-09 12:34 | CP.PCM.PN ---
Subjective - Date & Time of Evaluation Date of Evaluation: 03/09/18 Time of Evaluation: 12:34 - Subjective Subjective: AWAKE AND ALERT KEEPS ASKING FOR WATER STILL HAS SOB BUT IS RELIEVED BY HIGH FLOW O2 Objective - Vital Signs/Intake and Output Vital Signs (last 24 hours): Temp Pulse Resp BP Pulse Ox 98.3 F 106 H 28 H 141/71 93 L 03/09/18 12:00 03/09/18 12:00 03/09/18 12:00 03/09/18 12:00 03/09/18 12:00 Intake and Output: 03/09/18 03/09/18 06:59 18:59 Intake Total 900 575 Output Total 1000 Balance -100 575 - Medications Medications: Current Medications Acetaminophen (Tylenol 325mg Tab) 650 mg PO Q6H PRN PRN Reason: Pain, Mild (1-3) Acetaminophen (Tylenol 325mg Tab) 650 mg PO Q6H PRN PRN Reason: Fever >100.4 F Albuterol/Ipratropium (Duoneb 3 Mg/0.5 Mg (3 Ml) Ud) 3 ml INH RQ4 LUIZ Last Admin: 03/09/18 11:23 Dose: 3 ml Amlodipine Besylate (Norvasc) 10 mg PO DAILY LUIZ Last Admin: 03/09/18 10:47 Dose: 10 mg Aspirin (Aspirin) 325 mg PO DAILY LUIZ Last Admin: 03/09/18 08:33 Dose: 325 mg Carvedilol (Coreg) 25 mg PO Q12 LUIZ Last Admin: 03/09/18 08:18 Dose: 25 mg Famotidine (Pepcid) 40 mg PO HS LUIZ Last Admin: 03/08/18 22:00 Dose: Not Given Furosemide (Lasix) 40 mg IVP DAILY LUIZ Last Admin: 03/09/18 08:31 Dose: 40 mg Heparin Sodium (Porcine) (Heparin) 5,000 units SC Q8 LUIZ; Protocol Last Admin: 03/09/18 08:16 Dose: 5,000 units Piperacillin Sod/Tazobactam (Sod 2.25 gm/ Sodium Chloride) 100 mls @ 100 mls/hr IVPB Q6 LUIZ; Protocol Last Admin: 03/09/18 09:33 Dose: 100 mls/hr Levofloxacin/Dextrose (Levaquin 500mg) 500 mg in 100 mls @ 100 mls/hr IVPB Q48H [facility]; Protocol Last Admin: 03/08/18 08:09 Dose: 100 mls/hr Vancomycin HCl 500 mg/ Sodium (Chloride) 100 mls @ 100 mls/hr IVPB DAILY [facility]; Protocol Stop: 03/14/18 09:59 Last Admin: 03/08/18 16:51 Dose: 100 mls/hr Acyclovir 500 mg/ Sodium (Chloride) 100 mls @ 100 mls/hr IVPB Q8 LUIZ; Protocol Last Admin: 03/09/18 08:20 Dose: 100 mls/hr Potassium Chloride 40 meq/ (Dextrose) 1,020 mls @ 60 mls/hr IV .Q17H [facility] Stop: 03/10/18 11:33 Last Admin: 03/09/18 12:16 Dose: 60 mls/hr Insulin Detemir (Levemir) 8 units SC DAILY [facility] Last Admin: 03/09/18 08:44 Dose: 8 u Insulin Human Lispro (Humalog) 0 units SC ACHS [facility]; Protocol Last Admin: 03/09/18 11:17 Dose: 1 u Isosorbide Mononitrate (Imdur Er) 30 mg PO DAILY [facility] Last Admin: 03/09/18 08:17 Dose: 30 mg Metoclopramide HCl (Reglan) 10 mg IVP Q6 PRN PRN Reason: Nausea/Vomiting Last Admin: 03/08/18 21:29 Dose: 10 mg Ondansetron HCl (Zofran Inj) 4 mg IVP Q6 PRN PRN Reason: Nausea/Vomiting Last Admin: 03/08/18 10:21 Dose: 4 mg Pantoprazole Sodium (Protonix Inj) 40 mg IVP DAILY [facility] Last Admin: 03/09/18 08:16 Dose: 40 mg Pravastatin Sodium (Pravachol) 40 mg PO HS [facility] Last Admin: 03/08/18 22:00 Dose: Not Given Sucralfate (Carafate Oral Susp) 1 gm PO Q6H [facility] Last Admin: 03/09/18 08:17 Dose: 1 gm - Labs Labs: 03/09/18 05:30 03/09/18 05:30 - Constitutional Appears: Chronically Ill - Head Exam Head Exam: ATRAUMATIC, NORMAL INSPECTION, NORMOCEPHALIC - Eye Exam Eye Exam: EOMI, Normal appearance, PERRL Pupil Exam: NORMAL ACCOMODATION, PERRL - ENT Exam ENT Exam: Mucous Membranes Moist, Normal Exam - Neck Exam Neck Exam: Full ROM, Normal Inspection. absent: Lymphadenopathy - Respiratory Exam Respiratory Exam: Decreased Breath Sounds, Prolonged Expiratory Phase, Rales, Wheezes Additional comments: ON HIGH FLOW 02 - Cardiovascular Exam Cardiovascular Exam: REGULAR RHYTHM, +S1, +S2. absent: Murmur - GI/Abdominal Exam GI & Abdominal Exam: Soft, Normal Bowel Sounds. absent: Tenderness - Rectal Exam Rectal Exam: NORMAL INSPECTION - Extremities Exam Extremities Exam: Full ROM, Normal Capillary Refill, Normal Inspection. absent: Joint Swelling, Pedal Edema - Back Exam Back Exam: NORMAL INSPECTION - Neurological Exam Neurological Exam: Alert, Awake, CN II-XII Intact, Normal Gait, Oriented x3 - Psychiatric Exam Psychiatric exam: Normal Affect, Normal Mood - Skin Skin Exam: Dry, Intact, Normal Color, Warm Assessment and Plan - Assessment and Plan (Free Text) Assessment: RESPIRATORY FAILURE WITH PLEURAL EFFUSION COPD EXAC S/P ACUTE NSTEMI Plan: CONTINUE CURRENT RX WILL PROBABLY NEED THORACENTESES
[2018-03-09 18:07] VITALS: O2SAT 98
[2018-03-09 20:09] LABS: CALCIUM 7.7 mg/dL (8.4-10.2)
[2018-03-09] MEDS ORDERED: Potassium Chloride 20 mEq 100 ML IVPB ONE (20:17)
[2018-03-09 20:58] VITALS: BP 128/75; PULSE 99
[2018-03-09] MEDS: Pravastatin Sodium 40 MG TAB PO SCH (21:00)
[2018-03-09 21:42] VITALS: RESP 24; TEMP 96.5
--- NOTE | 2018-03-09 22:35 | CP.PCM.PRO ---
Pronouncement of Note - Clinical Findings Physical Exam: No Response Verbal/Painful Stimuli, Absent Peripheral Puls es{Carotid & Femoral}, Absent Heart & Breath Sounds, No Pupillary Light Reflex, Absence of Vital Signs - Pronouncement Time Time of Pronouncement of : 09:31 - Notifications Pronouncement Notifications: Atending Notified Clerical Administrator Notified: No - Autopsy Autopsy Requested: No - [place] [id number]
--- NOTE | 2018-03-10 05:56 | CON ---
DATE OF CONSULTATION: 03/09/2018 REFERRING PHYSICIAN: Everett Jang MD REASON FOR CONSULTATION: For findings of CT. HISTORY OF PRESENT ILLNESS: This is a pleasant 78-year-old female who is known from previous admission. She has got a bad COPD, long-term admission shortness of breath, pneumonia, brief altered mental status as well, dyspnea and low saturation as diagnoses. At this point, the patient is lethargic and unable to answer, poor historian at baseline, on BiPAP at this point. Lying in bed, comfortable, in no apparent distress. PAST MEDICAL HISTORY: As above. PAST SURGICAL HISTORY: As above. MEDICATIONS: Have been reviewed. REVIEW OF SYSTEMS: All other systems unable to obtain. PHYSICAL EXAMINATION: VITAL SIGNS: Here in the hospital are grossly unremarkable. GENERAL: A pleasant elderly-appearing female, lying with BiPAP, no apparent distress. HEENT: Head: Normocephalic and atraumatic. Eyes: Pupils are equally reactive to light bilaterally. No conjunctival pallor or icterus. NECK: Supple. Normal range of motion. LUNGS: Coarse breath sounds bilaterally. ABDOMEN: Soft and nontender. Bowel sounds present. No rebound. No guarding. RECTAL: Deferred. EXTREMITIES: Pulses present bilaterally. SKIN: Warm, dry, and intact. NEUROLOGIC: A and O x1, responds to pain. LABORATORY DATA: All labs and relevant radiology have been reviewed. WBC is 11.2, hemoglobin 11.1, hematocrit 35.5, and platelet count is 252,000. Two troponins are positive. ProBNP is over 26,000. CT of the chest demonstrates substantial bilateral symmetrical pleural effusion, moderate decrease in the left pleural, multifocal infiltrates in the left upper lobe, persistent dilation, and the esophagus is not fully filled. ASSESSMENT AND PLAN: This is a 78-year-old female with respiratory distress. At this point, the fluid in the esophagus looks possibly just physiologic from the BiPAP. At this point, we will keep n.p.o. until BiPAP is off and then we will reassess with the CT of the chest and abdomen. The patient's prognosis at this point is guarded. Pulmonary input appreciated. ICU level care. Thank you for the consult. Raghu Amaya MD cc: Manpreet Austin MD
--- NOTE | 2018-03-14 13:02 | PQF ---
PROVIDER RESPONSE TEXT: Ruled out REVIEWER QUERY TEXT: Conflicting Documentation Clarification Is the diagnosis of NSTEMI ruled in or ruled out? -- Confirmed and current -- Confirmed, treated and resolved -- Ruled out -- Other, please specify Troponin: 0.1880->0.1940->0.2520 12/6 EKG: Normal sinus rhythm Possible Left atrial enlargement Low voltage QRS Borderline ECG 12 second EKG: Normal sinus rhythm Possible Left atrial enlargement Low voltage QRS Nonspecific ST and T wave abnormality H and P: -EKG reviewed, NSTEMI? Cardiology consult includes: Elevated troponin: does not appear to be due to CAD but more so acute o n chronic diastolic dysfunction. medical therapy 03/07 and 03/08 Critical Care note; Small Acute / Subacute NSTEMI with decompensated L-CHF The patient's Clinical Indicators include: -- Query created by: Charlotte Moreira on 03/08/2018 10:54 AM Electronically signed by: Manpreet Austin 03/14/2018 1:00 PM
--- NOTE | 2018-03-14 13:02 | PQF ---
PROVIDER RESPONSE TEXT: Acute on chronic diastolic dysfunction REVIEWER QUERY TEXT: Heart Failure Acuity and Type Congestive Heart Failure is documented in the Medical Record. Please document the type if known: Such as: -- Combined systolic and diastolic (heart failure with reduced ejection fraction and diastol ic) dysfunction -- Diastolic (HFpEF) -- Systolic (HFrEF) -- Left heart failure -- Right heart failure -- Right heart failure due to left heart failure -- High output failure -- End stage heart failure -- Other, please specify 05/06/17: ECho; Lt. ventricle is normal in size. E.F. 45-50%; Aortic valve moderately thickened; modera te valvular aortic stenosis; mitral annular calcification mild to moderate; mitral regurg mild to mod erate; moderate Pulmonary HTN ER: Clinical Impression includes: CHF: exacerbation, Pneumonia, Pleural effusion, COPD (chronic obstr uctive pulmonary disease) H and P: CHF -Diuretics, Lasiv 40 IV daily, monitor kidney function -ECHO (05/2017): EF 45-50%, RVSP 57, moderate pulmonary HTN, moderate aortic stenosis The patient's Clinical Indicators include: - Query created by: Charlotte Moreira on 03/08/2018 11:08 AM Electronically signed by: Manpreet Austin 03/14/2018 1:00 PM
== END 2018-03-10 03:38 | DRG 177 ==
LOC: H.ER 23:58 → H.ERHOLD 03-07 02:10 → H.ICU/CCU 03-07 03:45
PROVIDERS: ADMIT Internal Medicine; ATTEND Internal Medicine
DX: J69.0 Pneumonitis due to inhalation of food and vomit (principal); J96.01 Acute respiratory failure with hypoxia; I50.33 Acute on chronic diastolic (congestive) heart failure; J96.02 Acute respiratory failure with hypercapnia; B00.4 Herpesviral encephalitis; I13.0 Hypertensive heart and chronic kidney disease with heart failure and stage 1 through stage 4 chronic kidney disease, or unspecified chronic kidney disease; J44.1 Chronic obstructive pulmonary disease with (acute) exacerbation; E87.2 Acidosis; E87.0 Hyperosmolality and hypernatremia; J44.0 Chronic obstructive pulmonary disease with (acute) lower respiratory infection; J94.2 Hemothorax; E11.22 Type 2 diabetes mellitus with diabetic chronic kidney disease; E78.00 Pure hypercholesterolemia, unspecified; E86.0 Dehydration; F03.90 Unspecified dementia, unspecified severity, without behavioral disturbance, psychotic disturbance, mood disturbance, and anxiety; F41.9 Anxiety disorder, unspecified; I25.10 Atherosclerotic heart disease of native coronary artery without angina pectoris; I27.20 Pulmonary hypertension, unspecified; I35.0 Nonrheumatic aortic (valve) stenosis; I48.0 Paroxysmal atrial fibrillation; M81.0 Age-related osteoporosis without current pathological fracture; N18.9 Chronic kidney disease, unspecified; Z82.49 Family history of ischemic heart disease and other diseases of the circulatory system; Z87.01 Personal history of pneumonia (recurrent); Z87.891 Personal history of nicotine dependence; Z90.49 Acquired absence of other specified parts of digestive tract; Z91.19 Patient's noncompliance with other medical treatment and regimen; Z95.5 Presence of coronary angioplasty implant and graft; D64.9 Anemia, unspecified; F32.9 Major depressive disorder, single episode, unspecified; H26.9 Unspecified cataract; J40 Bronchitis, not specified as acute or chronic; K29.70 Gastritis, unspecified, without bleeding; M19.90 Unspecified osteoarthritis, unspecified site; Z79.84 Long term (current) use of oral hypoglycemic drugs; Z79.899 Other long term (current) drug therapy